=== PATIENT | male | born 1975 | race Caucasian/White ===

== ENCOUNTER 2024-12-26 19:43 | Inpatient (IN) | payer OTHER, SELFPAY ==
[2024-12-26 19:44] VITALS: BP 151/76
--- NOTE | 2024-12-26 20:58 | HPS.HSE ---
Family Physician
-
Family Physician: NO INTERVIEW UNKNOWN
Chief Complaint
-
failure to thrive
History of Present Illness
49-year-old male past medical history of depression, hypertension, insomnia, kidney stones who originally presented to [facility] on 12/17 for generalized weakness. stated that he has been declining for months and was fired from his job
2 months ago and since then has been increasingly depressed, with failure to thrive. He has had decreased p.o. intake, decreased urine output and constipation. He had 30 pounds of weight loss. He was also unsteady on his feet. He did not have
falls or dizziness or lightheadedness or vision changes or numbness or tingling or focal weakness. No fevers or chills. No chest pain or palpitations. No shortness of breath or cough. No nausea or vomiting.
He was found to be anemic with hemoglobin of 6.9, thrombocytopenia with platelets of 97. He was found to have acute renal failure with creatinine of 4.84. He was given 2 units of blood transfusion. He was found to have [place] valve aortic
endocarditis with strep possibly due to indolent dental infection as he had a cap Fall off approximately a month ago.
He was also found to have splenic emboli and septic emboli to the brain with bilateral cortical and subcortical cerebral involvement. He did not have heart block arrhythmia or heart failure. He was recommended to be transferred to [facility] for curative valve replacement given septic emboli to the brain. He is receiving IV Rocephin through right upper extremity PICC line. Blood cultures have been clear since December 20.
His father had valvular heart disease. No family history of rheumatological conditions.
Medical History
Past Medical History
Past Medical History: Reports Other (depression, hypertension, insomnia, kidney stones)
Past Surgical History: Reports Other (JJ stent )
Social History
Tobacco: Non-smoker
Alcohol: None
Drug: None
Family History
Family History: Not pertinent
Allergies / Home Medications
Allergies reflects when Allergies were last updated in [employer].
Home Medications with original date entered in [facility]
Allergy/Medication List:
Home Medications
acetaminophen 325 mg tablet 650 mg PO Q6H PRN anemia 12/26/24
amlodipine 5 mg tablet 5 mg PO BID 12/26/24
ascorbic acid (vitamin C) 500 mg PO BID 12/26/24
ceftriaxone 2 gram intravenous solution 2 g IV DAILY 12/26/24
ferrous gluconate 324 mg (38 mg iron) tablet 324 mg PO DAILY 12/26/24
Review of Systems
-
Constitutional: Reports No Symptoms
EENT: Reports No Symptoms
Respiratory: Reports No Symptoms
Cardiac: Reports No Symptoms
Abdomen/GI: Reports No Symptoms
: Reports No Symptoms
Musculoskeletal: Reports No Symptoms
Skin: Reports No Symptoms
Neurological: Reports No Symptoms
Endocrine: Reports No Symptoms
Hematologic/Lymphatic: Reports No Symptoms
Psych: Reports No Symptoms
Physical Exam
Vital Signs
Vital Signs
Temp Pulse Resp Pulse Ox
98.6 F 82 16 97
12/26/24 19:47 12/26/24 19:47 12/26/24 19:47 12/26/24 19:47
Physical Exam
General: Well Developed, Well Nourished and No Apparent Distress
HEENT: NormoCephalic, Moist mucous membranes and Atraumatic
Respiratory: Clear
Cardiac: S1/S2 and Regular Rhythm; No Murmur or Rub
GI: Soft, Non Tender, Non Distended and Normal Bowel Sounds; No Organomegaly
Rectal: Deferred by Provider
Musculoskeletal: No Clubbing, No Cyanosis and No Edema
Skin: No Rash
Neuro: Nonfocal/grossly intact
Data Reviewed
-
Lab Data: Labs Reviewed by me
Old Records: Reviewed
Impression/Plan
-
IMPRESSION:
PLAN:
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
# Streptococcus mutans bacteremia
- Blood cultures negative since 12/20, currently on ceftriaxone
-Patient had extensive hematologic workup which was notable for lupus anticoagulant of 44 (normal <40), possible restricted M spike on protein electrophoresis, procalcitonin of 0.65, IgM kappa monoclonal band present on serum immunofixation,
bnmy-tygcgu-hhvzczjn DNA titer 1.1 (normal <1.1), free kappa light chains of 154, free lambda chains of 125, PT of 15.8,
-Negative labs include fibrinogen, ANCA negative, Dani viper venom screen negative, antibeta-2 glycoprotein IgG antibody and IgA antibody, glomerular basement membrane IgG antibody, anticardiolipin IgG antibody, anticardiolipin IgM antibody, C3,
C4, hepatitis B surface antigen, surface antibody, hep C antibody, antistreptolysin O antibody, malaria/Babesia smear,
-[place] lambda light chain ratio 1.23,
- Continue through right upper extremity PICC line
-Echo showed EF of 60 to 65% severe thickening of the anterior posterior leaflets of the mitral valve without clear vegetations, moderate-sized oscillating heterogeneous echodensity attached to the noncoronary cusp, aortic valve is thickened and
calcified, mild to moderate eccentric aortic regurgitation, mild to moderate mitral regurgitation, small pericardial effusion, small left pleural effusion
- Transfered to [facility] for curative aortic valve replacement given septic emboli to the brain
-No arrhythmias or CHF
-Patient was seen by hematology at [facility], unclear what the recommendations were
- Cardiothoracic surgery consulted
- ID consulted
- CT scan abdomen pelvis showed moderate ascites, moderate splenomegaly, hypodense lesion in the upper pole of the spleen concerning for splenic infarct, nonobstructing bilateral renal calculi, diffuse subcutaneous edema in the abdominal pelvic wall
- MRI brain showed multiple cortical and subcortical foci of diminished signal intensity suggesting blood products versus septic emboli
- Concern for underlying hematologic/rheumatologic process although dental infection could be precipitating event
-hematology consulted
# Acute kidney injury possibly thromboembolic vs glomerulonephritis vs vasculitic
- Creatinine of 4.84
- Nephrology consulted
# Anemia
- Initial hemoglobin 6.9
- Received 2 units blood transfusion
- Recheck CBC
-continue ferrous gluconate
# Thrombocytopenia
- Recheck CBC
# Right upper extremity PICC line related pain
- Continue morphine
#Tooth filling cap dislodgement
-outpatient follow up with dentist
Anxiety/depression
-continue xanax, fluoxetine, mirtazepine
Essential hypertension
-continue amlodipine, coreg, clonidine
Insomnia
History of kidney stones
Full code
DVT prophylaxis -Heparin
Regular diet
[2024-12-26 21:24] VITALS: BMI 23.6
[2024-12-26] MEDS: MORPHINE SULFATE 15 MG PO (22:30)
[2024-12-26] MEDS: REMERON 15 MG PO (22:30)
[2024-12-26] MEDS: HEPARIN 5000 UNITS SC (22:31)
[2024-12-26 22:42] VITALS: BP 157/84
--- NOTE | 2024-12-26 23:04 | CONSULT.CT ---
Consultation
-
Date/Time Consultation Requested: 12/26/24
Date/Time Consultation Performed: 12/26/24, 10 pm
Requesting Provider: Dr. Foote
Performing Provider: Krupa Arita PA-C for Dr. Denney
Reason for Consultation: Infective endocarditis with septic emboli to the brain and splenic infarct
Patient History
Physicians
Family Physician: Dr. Luis Turner
Outpatient Interchange Agent: Dr. Freda Pretty
Inpatient Interchange Agent: Dr. Lewis Riley
History of Present Illness
Mr Kwan is a 49 yo male with hx HTN, remote hx of syncope 2011, renal stones, anxiety, depression and insomnia. He presented to [facility] on 12/17 for generalized weakness, feeling tired, failure to thrive, difficulty with balance, unintentional weight
loss >30 lbs since October. He has been increasingly depressed since loosing his job 2 months ago with decreased po intake, decreased urine output and constipation. He denies having any fever or chills, difficulty swallowing or any nausea, vomiting,
abdominal or back pain, no chest pain, sob or cough.
Pt was found to be anemic with Hg 6.5, low platelets 97, in acute renal failure with BUN 78, Cr 4.84 (trended down to 2.86, no need of HD), trop T 896. BNP 96803 with trace leg edema. He was hemodynamically stable. CXR showed small L pleural
effusion, no opacities or consolidations. CT of abdomen/pelvis revealed moderate ascites, moderate splenomegaly, evidence of splenic infarct, multiple nonobstructing renal calculi, diffuse subcutaneous edema in the abdominal and pelvic wall. He was
also found to have septic emboli to the brain with bilateral cortical and subcortical cerebral involvement. Pt was given 2 units blood transfusion. He was diagnosed with aortic valve endocarditis with new mild-moderate aortic insufficiency, mild-mod
MR, nl EF 60-65%. Blood cultures grew out Streptococcus mutans and have been negative since 12/20. Pt had R upper extremity Picc line placed and has been treated with iv Ceftriaxone. Endocarditis source was suspected due to indolent dental infection
as he had a cap fall off approximately a month ago. He denies any toothache or abscess.
He underwent extensive work-up of anemia by Hematology, which was notable for elevated lupus anticoagulant of 44 (normal <40), possible restricted M spike on protein electrophoresis, elevated procalcitonin 0.65, IgM kappa monoclonal band present on
serum immunofixation, jyrq-xbyadx-fhgoxfay DNA titer of 1.1 (normal <1.1), free kappa light chains of 154, free lambda chains of 125, PT 15.8, normal fibrinogen.
Pt was transferred to on 12/26/24 for further workup and treatment of infective endocarditis. He is afebrile, in nsr 80 bpm, pOx 97% on RA, no distress, has cardiac murmur and b/l LE edema. He appears tired and falling asleep.
Past Medical History
Past Medical History: HTN
-hx syncope at work in 2011
-anxiety/depression
-insomnia
-asthma (uses prn Albuterol only)
-renal stones with prior lithotripsy and 3-4 JJ stents
Past Surgical History
Past Surgical History: Urological (JJ stents and lithotripsy)
Dental History
chipped tooth with loss of cap about 1 month ago
Family History
Family Medical History: Other (Father had valvular heart disease)
Social History
Alcohol: None
Drug: None
Tobacco: Other (occasional cigar)
Personal: ('s name is Loan)
Living: With Spouse
Employment: Not Employed (worked in [employer], lost his job 2 months ago)
Allergies
Allergy/AdvReac Type Severity Reaction Status Date / Time
Sulfa (Sulfonamide Allergy Anaphylaxis Verified 12/26/24 21:26
Antibiotics)
sulfite Allergy Anaphylaxis Verified 12/26/24 21:26
Home Medications
�Medication �Instructions �Recorded �Confirmed �Type
acetaminophen 325 mg tablet 650 mg PO Q6H PRN anemia 12/26/24 12/26/24 History
alprazolam 0.5 mg tablet 0.5 mg PO DAILY 12/26/24 12/26/24 History
amlodipine 5 mg tablet 5 mg PO BID 12/26/24 12/26/24 History
ascorbic acid (vitamin C) 500 mg PO BID 12/26/24 12/26/24 History
carvedilol 25 mg tablet 25 mg PO BID 12/26/24 12/26/24 History
ceftriaxone 2 gram intravenous 2 g IV DAILY 12/26/24 12/26/24 History
solution
clonidine HCl 0.1 mg tablet 0.1 mg PO Q6HPRN PRN HTN SBP>160 12/26/24 12/26/24 History
ergocalciferol (vitamin D2) 1,250 1,250 mcg PO QWEEK 12/26/24 12/26/24 History
mcg (50,000 unit) capsule
ferrous gluconate 324 mg (38 mg 324 mg PO DAILY 12/26/24 12/26/24 History
iron) tablet
fluoxetine 40 mg capsule 40 mg PO DAILY 12/26/24 12/26/24 History
folic acid 1 mg tablet 1 mg PO DAILY 12/26/24 12/26/24 History
heparin (porcine) 5,000 unit/mL 5,000 unit SC Q8H 12/26/24 12/26/24 History
injection solution
mirtazapine 15 mg disintegrating 15 mg PO HS 12/26/24 12/26/24 History
tablet
morphine 15 mg immediate release 15 mg PO Q6H PRN Moderate Pain 12/26/24 12/26/24 History
tablet (4-6)
multivitamin with folic acid 400 1 tab PO DAILY 12/26/24 12/26/24 History
mcg tablet
pantoprazole 40 mg tablet,delayed 40 mg PO DAILY 12/26/24 12/26/24 History
release
polyethylene glycol 3350 17 gram 17 g PO DAILY 12/26/24 12/26/24 History
oral powder packet
thiamine mononitrate (vit B1) 100 100 mg PO BID 12/26/24 12/26/24 History
mg tablet
zolpidem 12.5 mg tablet,extended 12.5 mg PO HS 12/26/24 12/26/24 History
release,multiphase
Review of Systems
-
History Source: Patient and Transfer Record
General: Reports Weight Loss (30-50 lbs since October,)
HEENT: Reports No Symptoms
Respiratory: Reports Asthma
Cardiac: Reports Edema
Abdomen/GI: Reports No Symptoms
: Reports No Symptoms
Musculoskeletal: Reports No Symptoms
Skin: Reports No Symptoms
Neurological: Reports No Symptoms
Vascular: Reports No Symptoms
Physical Exam
Vital Signs
Temp 98.6 F 12/26/24 19:47
Temp route: Oral 12/26/24 19:47
Pulse 80 12/26/24 22:15
Resp Rate 16 12/26/24 19:47
Blood pressure 151/76 12/26/24 19:44
Blood pressure extremity used: Left upper arm 12/26/24 19:47
Position: Sitting 12/26/24 19:47
MAP (cuff-Michelle Monitor) 100 12/26/24 19:44
SaO2 97 12/26/24 19:47
Oxygen Mode of Delivery Room air 12/26/24 19:47
Can the patient verbally communicate their pain? Yes 12/26/24 22:30
Pain scale ratin 12/26/24 22:30
Actual Weight 164 lb 7.437 oz 12/26/24 21:24
Body Mass Index (BMI) 23.6 12/26/24 21:24
Exam
General: No Apparent Distress
HEENT: Normocephalic, Anicteric, PERRLA and EOMI
Respiratory: Clear
Cardiac: S1/S2 and Murmur (2/6 systolic and diastolic murmurs)
GI: Soft, Non Tender, Normal Bowel Sounds and Distended
Skin: Warm and Dry
Neuro: Awake and AO x 3
Extremities: Lower Level Edema (2+ feet edema b/l)
Psych: Calm
Assessment / Plan
-
Impression:
-Aortic valve endocarditis with new aortic insufficiency, Septic brain emboli and Splenic infarct
-Streptococcus mutans bacteremia with negative blood cxs since 12/20/24, treated with iv Ceftriaxone via R upper extremity Picc line
-Suspected indolent dental infection with loss of tooth cap about 1 month ago
-Echo at [facility] revealed Ef 60-65%, no regional wma, severe thickening of the anterior and posterior leaflets of the mitral valve with no clear vegetations, mild-mod mitral regurgitation, moderate sized (0.4x0.7 cm) oscillating heterogeneous
echodensity attached to the non-coronary cusp. Aortic valve is thickened and calcified with mild-moderate eccentric aortic regurgitation, small pericardial effusion, small left pleural effusion.
-Lower extremity edema
-Anemia with Hg 6.5, got 2 pRBCs at [facility]
-Thrombocytopenia
-CORNELIO with Cr 4.84 down to 2.86 (did not need HD)
-Abnormal hematologic/rheumatologic workup
-Abdominal CT at [facility] with moderate ascites, moderate splenomegaly, suspected splenic infarct, non-obstructing b/l renal calculi, diffuse subcutaneous edema in the abdominal and pelvic wall
-Anxiety/depression
-Insomnia
Plan:
-continue iv Ceftriaxone. Further tx as per ID
-will ask Cardiology to follow. Will need AMANDA
-follow renal function, Nephrology eval
-will need Panelipse for possible dental infection (ordered)
-will review findings with Dr. Denney. He will provide further recommendations after his evaluation
Data Reviewed
-
EKG: Report Reviewed by me
Echo: Report Reviewed by me
Radiology: Report Reviewed by me
CT Scan: Report Reviewed by me
Labs: Labs Reviewed by me
Old Records: Reviewed
Critical Care Time (in minutes): 30
--- NOTE | 2024-12-26 23:28 | PTCARENOTE ---
Addendum entered by Ele Beasley RN 12/26/24 23:32:
PICC line in right arm assessed, blood return. Pt states the PICC line 'has been giving him pain. It was redressed and assessed at [facility] with no problems.' Pt did not complain when flushed line.
Original Note:
Received pt from [facility] transport @ 1945. AAOx3, VSS, NSR w/ First degree on monitor. C/o kidney pain (03/25). Morphine given once orders through-- see SEP. Krupa Arita, LYDIA PA, came to assess pt-- recommended 2L NC overnight. Discussed plan of care
with pt. Verbalizes understanding. Call quesada within reach.
[2024-12-27 05:14] VITALS: BP 152/83
[2024-12-27] MEDS: MORPHINE SULFATE 15 MG PO ×2 (05:44→11:09)
[2024-12-27] MEDS: HEPARIN 5000 UNITS SC (05:44)
[2024-12-27 05:54] VITALS: BMI 23.2
[2024-12-27 06:03] LABS: Hematocrit 23.2 % (39.0-52.0); Hemoglobin 7.8 g/dL (13.0-18.0); Mean Corp Hgb Conc. 33.6 g/dL (33.0-37.0); Mean Corpuscular Volume 80.0 fL (80.0-94.0); Nucleated Red Blood Cells % 0 % (-); Red Cell Dist. Width 17.6 % (11.5-14.5)
[2024-12-27 06:16] LABS: ALT (SGPT) 15 U/L (0-50); AST (SGOT) 21 U/L (17-59); Albumin 2.4 g/dl (3.5-5.0); Alkaline Phosphatase 86 U/L (38-126); Blood Urea Nitrogen 70 mg/dl (9-20); Calcium 8.0 mg/dl (8.4-10.2); Carbon Dioxide 21 mmol/L (22-30); Chloride 108 mmol/L (98-107); Estimated Creatinine Clearance 34 ml/min; Glucose 107 mg/dl (70-99); Potassium 4.5 mmol/L (3.5-5.1); Sodium 133 mmol/L (135-145); Total Protein 5.9 g/dl (6.3-8.2); eGFR 27.84
[2024-12-27 07:41] VITALS: BP 155/77
[2024-12-27] MEDS: COREG 25 MG PO (09:11)
[2024-12-27] MEDS: VITAMIN B1 100 MG PO (09:11)
[2024-12-27] MEDS: PROTONIX 40 MG PO (09:11)
[2024-12-27] MEDS: THERAGRAN 1 TABLET PO (09:11)
[2024-12-27] MEDS: FOLVITE 1 MG PO (09:12)
[2024-12-27] MEDS: FEOSOL 325 MG PO (09:12)
[2024-12-27] MEDS: PROZAC 40 MG PO (09:12)
[2024-12-27] MEDS: NORVASC 5 MG PO (09:12)
[2024-12-27] MEDS: DRISDOL (VITAMIN D2) 50000 UNITS PO (09:13)
[2024-12-27] MEDS: ROCEPHIN 2000 MG IV ×2 (09:15→23:51)
[2024-12-27] MEDS: STERILE WATER FOR INJECTION 20 ML IV ×2 (09:15→23:51)
--- NOTE | 2024-12-27 09:45 | W.CON.NEPH ---
Consultation
-
Date/Time Consultation Requested: 12/27/2024 730 AM
Date/Time Consultation Performed: 12/27/2024 945 AM
Requesting Provider: Dr. Cifuentes
Performing Provider: Dr. Chavarria
Reason for Consultation: CORNELIO
Medical History
-
Chief Complaint: CORNELIO
History of Present Illness:
bonnie Kwan is a 49 yo male with hx HTN, remote hx of syncope 2011, renal stones, anxiety, depression and insomnia. He presented to [facility] on 12/17 for generalized weakness, feeling tired, failure to thrive, difficulty with balance, unintentional weight
loss >30 lbs since October. He has been increasingly depressed since loosing his job 2 months ago with decreased po intake, decreased urine output and constipation. He denies having any fever or chills, difficulty swallowing or any nausea, vomiting,
abdominal or back pain, no chest pain, sob or cough.
Pt was found to be anemic with Hg 6.5, low platelets 97, in acute renal failure with BUN 78, Cr 4.84 (trended down to 2.86, no need of HD), trop T 896. BNP 03582 with trace leg edema. He was hemodynamically stable. CXR showed small L pleural
effusion, no opacities or consolidations. CT of abdomen/pelvis revealed moderate ascites, moderate splenomegaly, evidence of splenic infarct, multiple nonobstructing renal calculi, diffuse subcutaneous edema in the abdominal and pelvic wall. He was
also found to have septic emboli to the brain with bilateral cortical and subcortical cerebral involvement. Pt was given 2 units blood transfusion. He was diagnosed with aortic valve endocarditis with new mild-moderate aortic insufficiency, mild-mod
MR, nl EF 60-65%. Blood cultures grew out Streptococcus mutans and have been negative since 12/20. Pt had R upper extremity Picc line placed and has been treated with iv Ceftriaxone. Endocarditis source was suspected due to indolent dental infection
as he had a cap fall off approximately a month ago. He denies any toothache or abscess.
He underwent extensive work-up of anemia by Hematology, which was notable for elevated lupus anticoagulant of 44 (normal <40), possible restricted M spike on protein electrophoresis, elevated procalcitonin 0.65, IgM kappa monoclonal band present on
serum immunofixation, ypxh-ekjiff-pslvjblv DNA titer of 1.1 (normal <1.1), free kappa light chains of 154, free lambda chains of 125, PT 15.8, normal fibrinogen.
Pt was transferred to on 12/26/24 for further workup and treatment of infective endocarditis. He is afebrile, in nsr 80 bpm, pOx 97% on RA, no distress, has cardiac murmur and b/l LE edema.
Nephrology was consulted for acute kidney injury with creatinine of 2.7
Past Medical History
-hx syncope at work in 2011
-anxiety/depression
-insomnia
-asthma (uses prn Albuterol only)
-renal stones with prior lithotripsy and 3-4 JJ stents
-HTN
Social History
Tobacco: Non-Smoker
Alcohol: None
Drug: None
Family History
Valvular heart disease no ESRD
Allergies / Home Medications
Allergy/AdvReac Type Severity Reaction Status Date / Time
Sulfa (Sulfonamide Allergy Anaphylaxis Verified 12/26/24 21:26
Antibiotics)
sulfite Allergy Anaphylaxis Verified 12/26/24 21:26
�Medication �Instructions �Recorded �Confirmed �Type
acetaminophen 325 mg tablet 650 mg PO Q6H PRN anemia 12/26/24 12/26/24 History
alprazolam 0.5 mg tablet 0.5 mg PO DAILY Mental 12/26/24 12/26/24 History
Health/Anxiety
amlodipine 5 mg tablet 5 mg PO BID Blood Pressure 12/26/24 12/26/24 History
ascorbic acid (vitamin C) 500 mg PO BID Supplement 12/26/24 12/26/24 History
carvedilol 25 mg tablet 25 mg PO BID Blood Pressure 12/26/24 12/26/24 History
ceftriaxone 2 gram intravenous 2 g IV DAILY Infection 12/26/24 12/26/24 History
solution
clonidine HCl 0.1 mg tablet 0.1 mg PO Q6HPRN PRN HTN SBP>160 12/26/24 12/26/24 History
ergocalciferol (vitamin D2) 1,250 1,250 mcg PO QWEEK Supplement 12/26/24 12/26/24 History
mcg (50,000 unit) capsule
ferrous gluconate 324 mg (38 mg 324 mg PO DAILY Supplement 12/26/24 12/26/24 History
iron) tablet
fluoxetine 40 mg capsule 40 mg PO DAILY Mental 12/26/24 12/26/24 History
Health/Anxiety
folic acid 1 mg tablet 1 mg PO DAILY Supplement 12/26/24 12/26/24 History
heparin (porcine) 5,000 unit/mL 5,000 unit SC Q8H Blood Clot 12/26/24 12/26/24 History
injection solution Prevention/Tx
mirtazapine 15 mg disintegrating 15 mg PO HS Mental Health/Anxiety 12/26/24 12/26/24 History
tablet
morphine 15 mg immediate release 15 mg PO Q6H PRN Moderate Pain 12/26/24 12/26/24 History
tablet (4-6)
multivitamin with folic acid 400 1 tab PO DAILY Supplement 12/26/24 12/26/24 History
mcg tablet
pantoprazole 40 mg tablet,delayed 40 mg PO DAILY Gastrointestinal 12/26/24 12/26/24 History
release Issue
polyethylene glycol 3350 17 gram 17 g PO DAILY Gastrointestinal 12/26/24 12/26/24 History
oral powder packet Issue
thiamine mononitrate (vit B1) 100 100 mg PO BID Supplement 12/26/24 12/26/24 History
mg tablet
zolpidem 12.5 mg tablet,extended 12.5 mg PO HS Sleep 12/26/24 12/26/24 History
release,multiphase
Review of Systems
-
History Source: Patient
All other systems: Negative unless noted
Constitutional: Weight Loss (Weight loss 30 to 50 pounds since October 2024) and Fatigue
Abdomen/GI: Other (Decreased p.o.intake)
: Other (Decreased urinary output)
Musculoskeletal: Edema
Physical Exam
Vital Signs
Vital Signs
Temp Pulse Resp BP Pulse Ox
98.4 F 81 20 155/77 94
12/27/24 07:40 12/27/24 09:00 12/27/24 07:40 12/27/24 07:41 12/27/24 09:35
Lab Results
12/27/24 05:31
12/27/24 05:31
WBC 7.9 10^3/uL (4.8-10.8) 12/27/24 05:31
RBC 2.90 10^6/uL (4.70-6.10) L 12/27/24 05:31
Hgb 7.8 g/dL (13.0-18.0) L 12/27/24 05:31
Hct 23.2 % (39.0-52.0) L 12/27/24 05:31
Sodium 133 mmol/L (135-145) L 12/27/24 05:31
Potassium 4.5 mmol/L (3.5-5.1) 12/27/24 05:31
Chloride 108 mmol/L (98-107) H 12/27/24 05:31
Carbon Dioxide 21 mmol/L (22-30) L 12/27/24 05:31
BUN 70 mg/dl (9-20) H 12/27/24 05:31
Creatinine 2.7 mg/dL (0.7-1.3) H 12/27/24 05:31
eGFR 27.84 12/27/24 05:31
Glucose 107 mg/dl (70-99) H 12/27/24 05:31
Calcium 8.0 mg/dl (8.4-10.2) L 12/27/24 05:31
Albumin 2.4 g/dl (3.5-5.0) L 12/27/24 05:31
Physical Exam
General: AOx3, Nontoxic , NAD
HEENT: PERRL, EOMI, Anicteric, Conjunctivae Clear, Ear/Nose Intact, Hearing Normal, Oropharynx Clear/Moist, Dentition Intact, Facial Symmetry, Neck Supple, Neck: Trachea Midline, No JVD and No Thyromegaly, no Bruits
Respiratory: Clear to auscultation bilaterally with normal lung exersion
Cardiac: S1/S2 and Regular Rate/Rhythm : 3 out of 6 systolic ejection murmur best heard at right sternal border
Breast: Deferred by me
Abdomen: Soft, Nontender, Nondistended, Normal Bowel Sounds and No Hepatosplenomegaly
Rectal: Deferred by Provider
Genito-urinary: No Costovertebral Tenderness
Extremities: No Clubbing, No Cyanosis and trace edema
Skin: No Rash or open lesions, no evidence of digital emboli
Neuro: Nonfocal/Grossly Intact, CN II-XII (Intact) and Strength (Musculoskeletal exam 5 out of 5 both upper and lower extremities)
Hematologic/Lymphatic: No Cervical Lymphadenopathy, No Submandibular Lymphadenopathy and No Supraclavicular Lymphadenopathy
Psych: Mood/afflect pleasant, Insight/judgement good and Appropriate
Vascular: plus 2 pedal and radial pulses
Data Reviewed
-
Labs: Labs Reviewed by me (BMP CBC urinalysis)
Assessment/Plan
-
Impression:
CORNELIO
Infectious endocarditis (Aortic)
Septic brain emboli
Splenic infarct
Strep mutans bacteremia
Anemia
Thrombocytopenia
Anxiety/depression
History of obstructive uropathy due to nephrolithiasis with double-J stent
Plan:
No current HD requirement
CORNELIO is presumed to be secondary to infectious endocarditis with possible infectious immune complex GN but could also be atheroembolic
Previous serological workup was reviewed from [facility]
Will obtain kidney and bladder ultrasound given prior history of obstructive uropathy after surgery
I will also obtain urinalysis
Patient likely go to the OR today per CT surgery
[2024-12-27 10:13] LABS: Platelet Count 96 10^3/uL (130-400)
--- NOTE | 2024-12-27 10:57 | CON.CAR ---
Addendum entered and electronically signed by Pola Tafoya MD 12/27/24 12:42:
I saw and examined the patient.
The STAINED GLASS WINDOW DESIGNER's note was reviewed and I agree with the note.
Comment:
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 Blood cultures grew out Streptococcus mutans and
have been negative since 12/20. Treated with IV Ceftriaxone. He is transferred from [facility] for cardiac surgery which will happen today with Dr. Denney. He has no acute CV complaints.
Physical exam notable for RRR, systolic murmur, clear lungs, no edema.
Echo 12/22/24 EF 60-65, mild LVH, mildly dilated LA, severe thickening of anterior and posterior mitral leaflets,mild-mod MR, mod sized 0.4 x 0/7 oscillating heterogeneous echodensity attahced to noncoronary cusp, mild-mod AR, PG 23.5/MG 13.1, small
pericardial effusion
Bacterial [place] valve endocarditis complicated by septic emboli. Source thought to be dental infection. Cultures grew strep mutans. He has a highly mobile vegetation on his aortic valve requiring emergency surgery to prevent further
embolization. OR today with Dr. Denney. He is at high risk for surgery (STS mortality 6.2%). Infectious diseases following for antibiotic management. No signs/sx of CHF.
CORNELIO. Improving with treatment of his endocarditis. 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 Nephrology following.
Pancytopenia. Required PRBCs at [facility]. Continue to monitor.
Original Note:
Consultation
Consultation Request
Date/Time Consultation Requested: 12/27/2024 0900
Date/Time Consultation Performed: 12/27/2024 1030
Requesting Provider: Dr. Denney
Performing Provider: Dr. Tafoya
Reason for Consultation: Endocarditis
Medical History
-
Chief Complaint: Endocarditis, fatigue, weight loss
History of Present Illness:
Mr Kwan is a 49 yo male with hx HTN, remote hx of syncope 2011, renal stones, anxiety, depression and insomnia. He presented to [facility] on 12/17 for generalized weakness, feeling tired, failure to thrive, difficulty with balance, unintentional weight
loss >30 lbs since October. He has been increasingly depressed since loosing his job 2 months ago with decreased po intake, decreased urine output and constipation. No CP, SOB, LE edema noted.
-
During his admission he was noted to be anemic with Hg 6.5, low platelets 97, in acute renal failure with BUN 78, Cr 4.84 T 896. BNP 38093 with trace leg edema. He was hemodynamically stable. CT of abdomen/pelvis revealed moderate ascites,
moderate splenomegaly, evidence of splenic infarct, multiple nonobstructing renal calculi, diffuse subcutaneous edema in the abdominal and pelvic wall. He was also found to have septic emboli to the brain with bilateral cortical and subcortical
cerebral involvement. Pt was given 2 units blood transfusion. He was diagnosed with aortic valve endocarditis with new mild-moderate aortic insufficiency, mild-mod MR, nl EF 60-65%. Blood cultures grew out Streptococcus mutans and have been negative
since 12/20. Treated with IV Ceftriaxone. Endocarditis source is suspected to be due to possible dental infection as he had a cap fall off approximately a month ago. He denies any toothache or abscess. Now transferred to for further management.
Currently denies CP, palps, SOB.
Past Medical History
Past Medical History: HTN and Other (depression, insomnia, kidney stones)
Past Surgical History: None
Social History
Tobacco: Non-Smoker
Alcohol: None
Drug: None
Personal:
Employment: Not Employed
Family History
Family History: Reviewed & Not Pertinent
Allergies / Home Medications
Allergy/AdvReac Type Severity Reaction Status Date / Time
Sulfa (Sulfonamide Allergy Anaphylaxis Verified 12/26/24 21:26
Antibiotics)
sulfite Allergy Anaphylaxis Verified 12/26/24 21:26
�Medication �Instructions �Recorded �Confirmed �Type
acetaminophen 325 mg tablet 650 mg PO Q6H PRN anemia 12/26/24 12/26/24 History
alprazolam 0.5 mg tablet 0.5 mg PO DAILY Mental 12/26/24 12/26/24 History
Health/Anxiety
amlodipine 5 mg tablet 5 mg PO BID Blood Pressure 12/26/24 12/26/24 History
ascorbic acid (vitamin C) 500 mg PO BID Supplement 12/26/24 12/26/24 History
carvedilol 25 mg tablet 25 mg PO BID Blood Pressure 12/26/24 12/26/24 History
ceftriaxone 2 gram intravenous 2 g IV DAILY Infection 12/26/24 12/26/24 History
solution
clonidine HCl 0.1 mg tablet 0.1 mg PO Q6HPRN PRN HTN SBP>160 12/26/24 12/26/24 History
ergocalciferol (vitamin D2) 1,250 1,250 mcg PO QWEEK Supplement 12/26/24 12/26/24 History
mcg (50,000 unit) capsule
ferrous gluconate 324 mg (38 mg 324 mg PO DAILY Supplement 12/26/24 12/26/24 History
iron) tablet
fluoxetine 40 mg capsule 40 mg PO DAILY Mental 12/26/24 12/26/24 History
Health/Anxiety
folic acid 1 mg tablet 1 mg PO DAILY Supplement 12/26/24 12/26/24 History
heparin (porcine) 5,000 unit/mL 5,000 unit SC Q8H Blood Clot 12/26/24 12/26/24 History
injection solution Prevention/Tx
mirtazapine 15 mg disintegrating 15 mg PO HS Mental Health/Anxiety 12/26/24 12/26/24 History
tablet
morphine 15 mg immediate release 15 mg PO Q6H PRN Moderate Pain 12/26/24 12/26/24 History
tablet (4-6)
multivitamin with folic acid 400 1 tab PO DAILY Supplement 12/26/24 12/26/24 History
mcg tablet
pantoprazole 40 mg tablet,delayed 40 mg PO DAILY Gastrointestinal 12/26/24 12/26/24 History
release Issue
polyethylene glycol 3350 17 gram 17 g PO DAILY Gastrointestinal 12/26/24 12/26/24 History
oral powder packet Issue
thiamine mononitrate (vit B1) 100 100 mg PO BID Supplement 12/26/24 12/26/24 History
mg tablet
zolpidem 12.5 mg tablet,extended 12.5 mg PO HS Sleep 12/26/24 12/26/24 History
release,multiphase
Review of Systems
-
History Source: Patient
Constitutional: Weight Loss and Fatigue
EENT: No Symptoms
Respiratory: No Symptoms
Cardiac: No Symptoms
Abdomen/GI: No Symptoms
Musculoskeletal: No Symptoms
Skin: No Symptoms
Physical Exam
Vital Signs
Temp Pulse Resp BP Pulse Ox
98.4 F 81 20 155/77 94
12/27/24 07:40 12/27/24 09:00 12/27/24 07:40 12/27/24 07:41 12/27/24 09:35
Lab Results
12/27/24 05:31
12/27/24 05:31
Physical Exam
HEENT: Normocephalic and Moist Mucous Membranes
Respiratory: Clear
Cardiac: S1/S2, Regular Rhythm and Murmur (2/6 RSB , apex)
GI: Soft, Non Tender and Normal Bowel Sounds
Musculoskeletal: No Edema
Skin: Warm and Dry
Neuro: AO x 3
Psych: Calm
Impression / Plan
-
Aortic valve endocarditis:
-Associated with possible dental infection
-Associated with anemia, thrombocytopenia, CORNELIO, splenic infarct, and enboli to brain with concern for bilat occipital subarachnoid hemorrhage
-IV antibiotics
-CTS plans for OR today.
CORNELIO:
-Nephrology following
-present with creat 4.8, now 2.7
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
HTN:
-Stable on meds
Splenic infarct:
-in setting of endocarditis
Thrombocytopenia/anemia:
-in setting of endocarditis
-required PRBC
-
Data Reviewed
-
EKG: Tracing Personally Visualized and interpreted (EKG 12/27/24 NSR 1st degree AVB. )
Radiology: Report Reviewed by me (CT Healy: Sm L pleural effusion, mod ascities, mod splenomegaly hypodense lesion upper pole of spleen concern for splenic infarct. ) and Other (MRI: 12/23/24 Multiple cortical and subcortical foci concern for
septic emboli which can demonstrate ischemic changes with restricted diffusion as well as hemorrhagic damage to the brain. Linear areas of non flair suppression and diminished signal suggest possible subarachnoid hemorrhage with in the )
Medical Tests (Nuc Med, Echo etc): Other (Echo 12/22/24 EF 60-65, mild LVH, mildly dilated LA, severe thickening of anterior and posterior mitral leaflets,mild-mod MR, mod sized 0.4 x 0/7 oscillating heterogeneous echodensity attahced to noncoronary
cusp, mild-mod AR, PG 23.5/MG 13.1, small pericardial effusion)
Labs: Labs Reviewed by me and Discussed with Physician
--- NOTE | 2024-12-27 11:08 | W.PN.UPDATE ---
Update Note
Progress Note Update
CARDIAC SURGERY ATTENDING:
See full consult for additional details.
Mr. Kranthi Kwan is a 49 y/o man w/ significant streptococcus mutans endocarditis. On presentation at [facility] he reported generalized weakness, lethargy, balance difficulties, and unintentional weight loss (>30 lbs) since October. He was noted to be
anemic (Hgb 6.5), thrombocytopenic (PLT 97), with acute renal insufficiency (BUN/creat 78/4.84). His CTNI and BNP were elevated. A CT-CAP was obtained and demonstrated moderate ascites, moderate splenomegaly w/ evidence of splenic infacts,
multiple non-obstructing renal calculi, and diffuse edema in the abdominal and pelvic baer. A CT-H demonstrated septic emboli to the brain with bilateral cortical and subcortical cerebral involvement. An ECHOCARDIOGRAM demonstrated AV
endocarditis w/ moderate AI. He was transfused, started on IV ABX (Rocephin) via RUE PICC, and transfused to our institution for surgical management.
On my review of his ECHOCARDIOGRAM he has significant mobile vegetations present on his AV w/ associated moderate aortic insufficiency. In addition, he has a large, mobile LVOT vegetation attached to his septum. Given these large vegetations, the
associated moderate AV insuffiency, and evidence of several embolic events urgent surgical intervention is warrented. I had a long conversation with Mr. Kwan at his bedside this AM. His was present via telephone. We reviewed his
pathology, I reviewed his echocardiographic images, we discussed the need for surgical intervention, the associated surgical risks (including, but not limited to, , stroke, ICH, [place], early PVE, PPM requirement, PNA, CORNELIO/F, bleeding, and
infection), reviewed the expected in-hospital postoperative course, and discussed the expected outpatient recovery. We reviewed the natural history of structural valve deterioration and the pros/cons of mechanical vs. biologic AVR. The patient was
initial adament about avoiding coumadin, but is currently considering mechanical AVR. It is my hope that his infection is limited to the aortic valve/LVOT & septum. It is possible that he has some MV involvement. We discussed the possible of
concurrent MV intervention.
Will make arrangements for operative intervention today.
Thank you,
Kranthi Denney M.D.
[phone]
--- NOTE | 2024-12-27 11:16 | CON.ID ---
Consultation
-
Date/Time Consultation Requested: 12/26/20242
Date/Time Consultation Performed: 12/27/2024 0519
Requesting Provider: Dr. Foote
Performing Provider: Dr. Key
Reason for Consultation: Endocarditis
Chief Complaint / Past History
History of Present Illness
Kranthi Chaudhary is a 49-year-old man being evaluated at the request of Dr. Foote regarding endocarditis. History is obtained from chart review, along with patient interview.
The patient reports that for the past several months he has not been feeling well, with related poor oral intake secondary to decreased appetite and noted weight loss. He thought that some of this was secondary to stress from recently being laid
off from work. Additionally, he reports that he was having problems with balance and was finding it difficult to walk. He denied having any fevers during this period of time.
Ultimately, he presented to [facility] approximately 10 days ago at which point in time he was found to have anemia and further workup revealed acute kidney injury. Blood cultures obtained at the time of admission subsequently grew out
Streptococcus mutations. The patient was worked up for gait dysfunction and underwent MRI which suggested septic emboli, and echocardiography revealed an aortic valve vegetation. The patient was placed on IV antibiotics, and transferred to
[facility] for evaluation for possible valve replacement.
At this time, he notes ongoing difficulty walking. He denies any specific pain, though. He reports occasional headache. He denies any fevers or chills. Thus far, he has been evaluated by Nephrology, Cardiology and CT surgery.
Past History
Additional Past Medical History:
HTN
DM type II
Nephrolithiasis
Additional Past Surgical History:
Remote history JJ stent
Allergy History:
Sulfa (Sulfonamide Antibiotics) Allergy (Verified 12/26/24 21:26)
Wheeze
Current Antibiotics:
Ceftriaxone 2 g IV every 24 hours
Social History
Tobacco: Non-Smoker
Alcohol: None
Drug: None
Personal:
Living: With Family
Employment: Not Employed
Family History
Family History: Not Pertinent
Review of Systems
Vital Signs
Temp Pulse Resp BP Pulse Ox
98.4 F 81 20 155/77 94
12/27/24 07:40 12/27/24 09:00 12/27/24 07:40 12/27/24 07:41 12/27/24 09:35
Physical Exam
Physical Exam
Constitutional: No Acute Distress, Comfortable, Chronically Ill and Non-toxic
Head: Normocephalic
Eyes: Pupils Equal, Pupils Round, No Conjunctival Hemorrhage and Sclera Anicteric
Oral: No Thrush and No Ulcers
Cardiovascular: Regular Rate, S1/S2 and Murmur; Negative S3/S4
Pulmonary: Clear; Negative Wheezes, Rales or Rhonchi
Gastrointestinal: Soft, Non Tender, Non Distended, Normal Bowel Sounds, No Rebound and No Guarding
Genito-Urinary: Negative Junior
Extremities: Edema (2+ bilateral lower); Negative Cyanosis, Erythema, Splinter Hemorrhage or Janeway Lesions
Skin: Warm and Dry; Negative Rash or Jaundice
Neurological: Awake, Alert and Oriented; Negative Meningeal Signs
Psychological: Calm
.
Lab / Diagnostic Study Results
12/27/24 05:31
12/27/24 05:31
Abs Immat Gran (auto) 0.1 10^3/uL (0-0.05) H 12/27/24 05:31
Absolute Neuts (auto) 4.9 10^3/uL (1.4-6.5) 12/27/24 05:31
Absolute Lymphs (auto) 1.6 10^3/uL (1.2-3.4) 12/27/24 05:31
Absolute Monos (auto) 1.3 10^3/uL (0.1-0.6) H 12/27/24 05:31
Absolute Basos (auto) 0.0 10^3/uL (0-0.2) 12/27/24 05:31
Immature Gran % 1.3 % (0-0.5) H 12/27/24 05:31
Neutrophils % 62.5 % (42.2-75.2) 12/27/24 05:31
Lymphocytes % 19.8 % (20.5-51.1) L 12/27/24 05:31
Monocytes % 16.0 % (1.7-9.3) H 12/27/24 05:31
Eosinophils % 0.0 % (0-6) 12/27/24 05:31
Basophils % 0.4 % (0-2) 12/27/24 05:31
Microbiology Results
Micro:
12/27/24 05:31 MRSA Screen - Pending
Nose
Imaging:
12/25/2024 MRI brain (performed at [facility]): Multiple cortical and subcortical foci of diminished signal intensity on susceptibility weighted sequences. The sequence suggest the presence of blood products. Concern raised for septic
emboli which can demonstrate ischemic changes resulting in restriction diffusion, as well as hemorrhagic damage to the brain. Multiple small embolic infarcts also in the differential. Contrast enhanced examination failed to demonstrate enhancing
lesions or venous filling defects or prominent venous structures thus leptomeningeal carcinomatosis or venous congestion is not consistent with this study. Linear appearing areas of non-FLAIR suppression and diminished signal on susceptibility
weighted sequences suggest associated possible subarachnoid hemorrhage within the bilateral occipital lobes. Please see full dictation for additional detail.
12/22/2024 ECHO (TTE): LV EF = 60%. Mildly dilated left atrium. Severe thickening of the anterior and posterior leaflets of the mitral valve, but without clear vegetations. Moderate sized (0.4 x 0.7 cm oscillating heterogeneous echodensity
attached to the noncoronary cusp. Aortic valve is thickened and calcified with mild to moderate eccentric aortic regurgitation.
Assessment / Plan
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
Suspected septic emboli to the brain
HTN
DM type II
Nephrolithiasis
Recommendations:
Continue with ceftriaxone, although given likelihood of septic emboli, will increase to 2 g IV every 12 hours for GEOTHERMAL PRODUCTION MANAGER penetration.
CT Surgery has evaluated patient, and may be scheduling patient for valve replacement later today.
Repeat blood cultures today to assess for ongoing bacteremia
Obtain full susceptibilities of recovered strep from OSH, as well as complete record.
Check ESR and CRP in AM.
Care Review
Plan reviewed with: Physician (Cardiology; Nephrology)
[2024-12-27 12:07] LABS: Urine Character Slightly Cloudy (Clear)
[2024-12-27 12:25] LABS: Urine Red Blood Cell 50-60 /HPF (0-2)
[2024-12-27] MEDS: BACTROBAN 2% OINTMENT 1 APPLIC NASAL ×2 (12:45→23:43)
[2024-12-27 13:13] VITALS: BP 162/80
--- NOTE | 2024-12-27 15:13 | PTCARENOTE ---
Pt seen by Michelet Franklin and Avinash and Macey ISRAEL. Pt ate breakfast of cereal @ 07:30, aware.Pt clipped and bathed with CHG 4% soap and also 2% CHG wipes. Blood and urine cultures sent and type and screen. Pt's at
bedside. Pt anxious but coping well with much reassurance. Pt taken to [facility] @14:32.
--- NOTE | 2024-12-27 15:14 | W.PN.HOSP.TC ---
Today's Communication/Plan
-
For OR today
Continue IV Abx
Assessment / Plan
Assessment / Plan
Impression:
49-year-old male past medical history of depression, hypertension, insomnia, kidney stones who originally presented to [facility] on 12/17 for generalized weakness. stated that he has been declining for months and was fired from his job
2 months ago and since then has been increasingly depressed, with failure to thrive. He has had decreased p.o. intake, decreased urine output and constipation. He had 30 pounds of weight loss. He was also unsteady on his feet. He did not have
falls or dizziness or lightheadedness or vision changes or numbness or tingling or focal weakness. No fevers or chills. No chest pain or palpitations. No shortness of breath or cough. No nausea or vomiting.
Patient was found to be anemic with hemoglobin of 6.9, thrombocytopenia with platelets of 97. He was found to have acute renal failure with creatinine of 4.84. He was given 2 units of blood transfusion. He was found to have [place] valve aortic
endocarditis with strep possibly due to indolent dental infection as he had a cap Fall off approximately a month ago.
Seen by CT surgery and plan for OR (aortic valve replacement)
Assessment/plan:
[place] aortic valve endocarditis with aortic insufficiency secondary to Streptococcus mutans with splenic infarct/septic emboli to brain
Streptococcus mutans bacteremia
- Blood cultures negative since 12/20, currently on ceftriaxone
-Patient had extensive hematologic workup which was notable for lupus anticoagulant of 44 (normal <40), possible restricted M spike on protein electrophoresis, procalcitonin of 0.65, IgM kappa monoclonal band present on serum immunofixation,
vakq-[id number]-uanktvvc DNA titer 1.1 (normal <1.1), free kappa light chains of 154, free lambda chains of 125, PT of 15.8,
-Negative labs include fibrinogen, ANCA negative, Dani viper venom screen negative, antibeta-2 glycoprotein IgG antibody and IgA antibody, glomerular basement membrane IgG antibody, anticardiolipin IgG antibody, anticardiolipin IgM antibody, C3,
C4, hepatitis B surface antigen, surface antibody, hep C antibody, antistreptolysin O antibody, malaria/Babesia smear,
-[place] lambda light chain ratio 1.23,
- Continue through right upper extremity PICC line
-Echo showed EF of 60 to 65% severe thickening of the anterior posterior leaflets of the mitral valve without clear vegetations, moderate-sized oscillating heterogeneous echodensity attached to the noncoronary cusp, aortic valve is thickened and
calcified, mild to moderate eccentric aortic regurgitation, mild to moderate mitral regurgitation, small pericardial effusion, small left pleural effusion
- Transfered to [place] for curative aortic valve replacement given septic emboli to the brain
-No arrhythmias or CHF
-Patient was seen by hematology at [facility], unclear what the recommendations were
- Cardiothoracic surgery consulted
- ID consulted
- CT scan abdomen pelvis showed moderate ascites, moderate splenomegaly, hypodense lesion in the upper pole of the spleen concerning for splenic infarct, nonobstructing bilateral renal calculi, diffuse subcutaneous edema in the abdominal pelvic wall
- MRI brain showed multiple cortical and subcortical foci of diminished signal intensity suggesting blood products versus septic emboli
- Concern for underlying hematologic/rheumatologic process although dental infection could be precipitating event
12/[address] surgery.
Plan for OR today.
Infectious disease consulted recommended to continue Rocephin 2 g IV every 12 hours for AUTOMOTIVE PAINTER penetration.
Acute kidney injury possibly thromboembolic vs glomerulonephritis vs vasculitic
- Creatinine improved.
- Nephrology consulted
Anemia
- Initial hemoglobin 6.9 at [facility].
- Received 2 units blood transfusion at [place]
- monitor Hb
-continue ferrous gluconate
Thrombocytopenia
- monitor CBC
Tooth filling cap dislodgement
-outpatient follow up with dentist
Anxiety/depression
-continue xanax, fluoxetine, mirtazepine
Essential hypertension
-continue amlodipine, coreg, clonidine
CODE STATUS: Full code
DVT prophylaxis: Heparin
Diet: now NPO
Disposition: for OR today.
Total time spent on today's encounter was 65 minutes which included time spent in counseling the patient/family regarding diagnosis and treatment plan as listed above, goals of care, and symptom management. Case was discussed with nursing staff,
specialists, and care coordinators/case management. All labs and imaging personally reviewed by me. Remainder the time spent in detailed review of previous records, lab data, imaging, and other medical provider documentation.
Anticipated Discharge: > 48 hours
Subjective/Interval History
-
Date of Service: December 27, 2024
Patient seen and examined at bedside, denies any chest pain or shortness of breath, no abdominal pain, no nausea, no vomiting, no diarrhea or constipation.
Objective Data
-
Labs:
Laboratory Results
12/27/24
05:31
WBC 7.9
Hgb 7.8 L
Hct 23.2 L
Plt Count 96 L
Sodium 133 L
Potassium 4.5
Chloride 108 H
Carbon Dioxide 21 L
BUN 70 H
Creatinine 2.7 H
Glucose 107 H
Calcium 8.0 L
Total Bilirubin 0.5
AST 21
ALT 15
Alkaline Phosphatase 86
Vital Signs:
Vital Signs
Temp Pulse Resp BP Pulse Ox
98.3 F 87 18 162/80 94
12/27/24 13:14 12/27/24 13:13 12/27/24 13:14 12/27/24 13:13 12/27/24 13:14
I&O
12/26/24 12/27/24 12/28/24
06:59 06:59 06:59
Intake Total 240 / 240
Output Total 150 / 150 400 / 400
Balance -150 / -150 -160 / -160
Physical Exam
-
General: Well Developed, Well Nourished, No Apparent Distress and Comfortable
HEENT: Normocephalic, Atraumatic, Moist Mucous Membranes, No Ptosis, PERRLA and Nose Appears Normal
Respiratory: Clear to Auscultation and Non Labored Respirations
Cardiac: Regular Rhythm and S1/S2
Breast: Deferred by me
GI: Soft, Nontender, Nondistended and Normal Bowel Sounds
Genito-urinary: No Costovertebral Tender
Musculoskeletal: No Clubbing, No Cyanosis and No Edema
Skin: Warm
Neuro: Awake, Alert, Oriented, AO x 3 and No Motor Deficits
Psych: Calm
Data Reviewed
-
Diagnostic Radiology: Image personally visualized and interpreted and Report Reviewed by me
CT Scan: Image personally visualized and interpreted and Report Reviewed by me
Ultrasound: Image personally visualized and interpreted and Report Reviewed by me
MRI: Image personally visualized and interpreted and Report Reviewed by me
Medical Tests (Nuc Med, Echo etc): Image personally visualized and interpreted and Report Reviewed by me
Labs: Labs Reviewed by me
Old Records: Reviewed
[2024-12-27 15:15] LABS: Urine Character Cloudy (Clear)
[2024-12-27 15:25] LABS: Urine Red Blood Cell >100 /HPF (0-2); Urine Squamous Cell 0-2 /LPF (Few)
[2024-12-27 15:28] LABS: ACT+ - POC 104 Seconds (82-134)
[2024-12-27 16:27] LABS: ACT+ - POC 901 Seconds (82-134)
[2024-12-27 17:09] LABS: ACT+ - POC 698 Seconds (82-134)
[2024-12-27 17:34] LABS: B.E. - POC -1.1 mmol/L; Glucose - POC 127 mg/dl (70-99); HCO3 - POC 23 mmol/L (21-28); Hematocrit - POC 21 % PCV (42-52); Hemodilution- POC Yes; Hemoglobin Calculated - POC 7.1; Ionized Calcium - POC 1.03 mmol/L (1.15-1.33); Lactate - POC 0.41 mmol/L (0.36-0.75); O2 Saturation %Calculated-POC 100.0 % (94-98); PCO2 - POC 37 mmHg (35-48); PO2 - POC 506 mmHg (83-108); POC Comment CPB; Potassium - POC 5.3 mmol/L (3.5-5.1); Sodium - POC 136 mmol/L (136-145); Specimen Type - POC Arterial; pH - POC 7.41 (7.35-7.45)
[2024-12-27 17:42] LABS: ACT+ - POC 504 Seconds (82-134)
[2024-12-27 18:08] LABS: B.E. - POC -3.6 mmol/L; Glucose - POC 138 mg/dl (70-99); HCO3 - POC 22 mmol/L (21-28); Hematocrit - POC 23 % PCV (42-52); Hemodilution- POC Yes; Hemoglobin Calculated - POC 7.7; Ionized Calcium - POC 1.09 mmol/L (1.15-1.33); Lactate - POC 1.40 mmol/L (0.36-0.75); O2 Saturation %Calculated-POC 99.9 % (94-98); PCO2 - POC 43 mmHg (35-48); PO2 - POC 292 mmHg (83-108); POC Comment CPB; Potassium - POC 5.5 mmol/L (3.5-5.1); Sodium - POC 137 mmol/L (136-145); Specimen Type - POC Arterial; pH - POC 7.32 (7.35-7.45)
[2024-12-27 18:19] LABS: ACT+ - POC 591 Seconds (82-134)
[2024-12-27 18:36] LABS: B.E. - POC -1.7 mmol/L; Glucose - POC 156 mg/dl (70-99); HCO3 - POC 24 mmol/L (21-28); Hematocrit - POC 25 % PCV (42-52); Hemodilution- POC Yes; Hemoglobin Calculated - POC 8.5; Ionized Calcium - POC 1.04 mmol/L (1.15-1.33); Lactate - POC 1.36 mmol/L (0.36-0.75); O2 Saturation %Calculated-POC 99.9 % (94-98); PCO2 - POC 42 mmHg (35-48); PO2 - POC 268 mmHg (83-108); POC Comment CPB; Potassium - POC 5.6 mmol/L (3.5-5.1); Sodium - POC 138 mmol/L (136-145); Specimen Type - POC Arterial; pH - POC 7.36 (7.35-7.45)
[2024-12-27 18:49] LABS: ACT+ - POC 548 Seconds (82-134)
[2024-12-27 19:41] LABS: B.E. - POC -2.5 mmol/L; Glucose - POC 142 mg/dl (70-99); HCO3 - POC 23 mmol/L (21-28); Hematocrit - POC 26 % PCV (42-52); Hemodilution- POC Yes; Hemoglobin Calculated - POC 9.0; Ionized Calcium - POC 1.10 mmol/L (1.15-1.33); Lactate - POC 1.31 mmol/L (0.36-0.75); O2 Saturation %Calculated-POC 99.9 % (94-98); PCO2 - POC 41 mmHg (35-48); PO2 - POC 291 mmHg (83-108); POC Comment WARM; Potassium - POC 5.0 mmol/L (3.5-5.1); Sodium - POC 138 mmol/L (136-145); Specimen Type - POC Arterial; pH - POC 7.35 (7.35-7.45)
[2024-12-27 19:45] LABS: ACT+ - POC 140 Seconds (82-134)
[2024-12-27 19:58] LABS: ACT+ - POC 178 Seconds (82-134)
[2024-12-27 20:05] LABS: B.E. - POC -2.5 mmol/L; Glucose - POC 128 mg/dl (70-99); HCO3 - POC 24 mmol/L (21-28); Hematocrit - POC 25 % PCV (42-52); Hemodilution- POC Yes; Hemoglobin Calculated - POC 8.5; Ionized Calcium - POC 1.19 mmol/L (1.15-1.33); Lactate - POC 1.65 mmol/L (0.36-0.75); O2 Saturation %Calculated-POC 99.4 % (94-98); PCO2 - POC 50 mmHg (35-48); PO2 - POC 177 mmHg (83-108); POC Comment POST; Potassium - POC 4.8 mmol/L (3.5-5.1); Sodium - POC 138 mmol/L (136-145); Specimen Type - POC Arterial; pH - POC 7.29 (7.35-7.45)
[2024-12-27 20:06] LABS: ACT+ - POC 145 Seconds (82-134)
[2024-12-27] MEDS: HEPARIN SC (20:09)
[2024-12-27 20:15] LABS: B.E. - POC -2.4 mmol/L; Glucose - POC 113 mg/dl (70-99); HCO3 - POC 24 mmol/L (21-28); Hematocrit - POC 23 % PCV (42-52); Hemodilution- POC Yes; Hemoglobin Calculated - POC 7.9; Ionized Calcium - POC 1.08 mmol/L (1.15-1.33); Lactate - POC 1.64 mmol/L (0.36-0.75); O2 Saturation %Calculated-POC 98.6 % (94-98); PCO2 - POC 48 mmHg (35-48); PO2 - POC 131 mmHg (83-108); POC Comment POST; Potassium - POC 4.7 mmol/L (3.5-5.1); Sodium - POC 137 mmol/L (136-145); Specimen Type - POC Arterial; pH - POC 7.31 (7.35-7.45)
--- NOTE | 2024-12-27 20:24 | W.IMMPOSTOP ---
Addendum entered and electronically signed by Kranthi Denney MD 12/27/24 23:16:
[id number]
Original Note:
Surgical Immed Post Op Note
-
CARDIAC SURGERY OPERATIVE NOTE:
Preoperative Dx:
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
Moderate aortic insufficiency
Moderate mitral regurgitation (RHONDA)
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
Acute renal insufficiency (BUN/creat 78/4.[address] [facility], creat 2.7 on initial labs)
Anemia (starting Hgb/Hct in OR 6.0/18)
Thrombocytopenia (PLT 96)
Postoperative Dx:
Same
Procedures:
1) Median sternotomy
2) Cannulation for CPB (aortic/bicaval/retrograde/antegrade/LV vent via R SPV)
3) Resection of aortic valve, annular debridement
4) Limited septal myomectomy w/ removal of LVOT vegetations
5) Resection of 1 MV tertiary chordae w/ vegetation
6) AVR (initially w/ 25 On-X) - subsequent explant of AVR
7) Redo-AVR (23mm On-X)
Surgeon:
Kranthi Denney M.D.
Digital Media Designer:
Macey Freeman P.A.-C.
Anesthesia:
Dallas Mathias M.D. and Beata Escobedo C.R.N.A.
Perfusion:
Angelito Hawkins C.C.P.; CPB: 147min, XC: 133min
Findings:
Normal ascending aortic size & wall thickness
Minor pectus excavatum w/ slight displacement of heart towards L chest
Functionally bicuspid AV (with partial fusion of LCC and RCC), NCC w/ significant distruction w/ embolic vegetations on aortic and ventricular surfaces; one vegetation with very narrow stalk.
Multi-lobular vegetation on septal myocardium - resected
Minor vegetation on tertiary MV chordae - resected
Annulus and LVOT copiously irrigated w/ ABX irrigation
AV annulus size for a 25mm On-X; slightly tight, but visually good fit - annular sutures placed & 25mm On-X lowered into position w/ difficulty obtaining intra-annular positioning. Secured Cor-Knots circumferentially; good placement around 85% of
annulus; however, 15% of annulus was lying below valve. While the valve was working well on functional testing, I was concerned that future pannus ingrowth over this small portion of subvalvular annulus could negatively impact the long-term
function of the valve
AV explanted - AVR re-performed w/ placement of 23mm On-X with excellent visual results, secured w/ 15 interrupted, pledgetted sutures and CorKnots
Post-AMANDA: Normal biventricular function w/ LVEF 65%, well-seated AVR w/ mean gradient 11mmHg, normal washing jets. MV w/ MILD-to-mod regurgitation w/ improvement in preoperative RHONDA.
Post-initial closure, intraoperative CT output higher than expected w/ ~200mL out the pleural tubes over first 20 min. I opted to re-explore the chest. All surgical sites inspected and hemostatic. Sternum was very friable and vascular w/ venous
bleeding/oozing from multiple sources. We addressed each of these and reapproximated the sternum.
Transfusions:
4U PRBC, 2pk PLT, 2U FFP
Additional protamine administered x 2
Complications:
Initial AVR, despite measuring appropriately, did NOT secure in ideal intra-annular location requiring explant and redo AVR
Pt w/ high CT output post initial closure - requiring re-exploration
Medical coagulopathy and anemia requiring transfusions as noted above
Low-urine output intraoperatively w/ total UO 150mL for the case
Implants:
On-X 23mm mechanical AVR ([id number])
CT x 4 (B/L pleural, inferior mediastinal, superior mediastinal)
Sternal wires x 4
Sternal 'X' plate, 'Square' plate, and 'Bar' plate w/ 10mm screws
Condition:
Levophed 2, insulin 0.5, precedex 0.5
67 A-paced, 105/61, CVP 12, 99%
Guarded to CVICU
[2024-12-27] MEDS: PACERONE PO ×2 (20:25→23:39)
[2024-12-27] MEDS: NEURONTIN PO ×2 (20:25→23:39)
[2024-12-27] MEDS: SENOKOT-S PO (20:25)
[2024-12-27 20:57] LABS: ACT+ - POC 126 Seconds (82-134)
[2024-12-27 21:00] LABS: B.E. - POC -1.5 mmol/L; Glucose - POC 110 mg/dl (70-99); HCO3 - POC 23 mmol/L (21-28); Hematocrit - POC 25 % PCV (42-52); Hemodilution- POC Yes; Hemoglobin Calculated - POC 8.4; Ionized Calcium - POC 1.05 mmol/L (1.15-1.33); Lactate - POC 1.41 mmol/L (0.36-0.75); O2 Saturation %Calculated-POC 98.6 % (94-98); PCO2 - POC 39 mmHg (35-48); PO2 - POC 120 mmHg (83-108); POC Comment POST OP; Potassium - POC 4.7 mmol/L (3.5-5.1); Sodium - POC 139 mmol/L (136-145); Specimen Type - POC Arterial; pH - POC 7.39 (7.35-7.45)
[2024-12-27] MEDS: NSS 500 IV (22:45)
[2024-12-27 22:51] LABS: B.E. -0.6 mmol/L; HCO3 24.9 mmol/L (21-28); O2 Saturation % 99.0 % (94-98); PCO2 44 mmHg (35-48); PO2 104 mmHg (83-108); Potassium 5.1 mMOL/L (3.5-5.1); Sodium 134 mMOL/L (136-145)
[2024-12-27 22:51] LABS: Glucose - Point of Care 125 mg/dl (70-99)
[2024-12-27 22:54] LABS: Hematocrit 22.8 % (39.0-52.0); Hemoglobin 8.1 g/dL (13.0-18.0)
--- NOTE | 2024-12-27 23:00 | PTCARENOTE ---
Received patient from [facility] at 2245. Patient unresponsive, intubated and sedated. SR on the monitor, rates 60-70's, pressure stable on 2 of Levo, AV wires in place with no pacing noted at the time of arrival, pulses palpable throughout, trace LE
edema, click on auscultation. ETT 26 at the center lip, patient suctioned for moderate oral secretions and mouth care provided; lungs coarse throughout, CVNP aware, see work list for SIMV vent settings; CTx4 in place to -20 cm wall suction, no air
leak, tidaling, or crepitus noted; initial output on arrival was ~70 mLs from pleural CTs, CVNP aware. Hypoactive BS, abdomen round, SNT; Junior catheter in place draining clear, yellow urine with low output. MS Aquacel CDI with scant drainage marked
for future reference, skin otherwise grossly intact. RIJ Cordis with slic, L forearm PIV and radial art line, RUE single lumen PICC; all applicable lines leveled and calibrated. On Levo, precedex, and insulin. See worklist for intervention and
titration details.
[2024-12-27 23:03] LABS: APTT 34.6 Sec (23.4-35.0); INR 1.55; PT 18.8 Sec (11.4-14.6)
[2024-12-27 23:05] LABS: Platelet Count 60 10^3/uL (130-400)
[2024-12-27 23:14] LABS: Blood Urea Nitrogen 66 mg/dl (9-20); Estimated Creatinine Clearance 40 ml/min; Glucose 117 mg/dl (70-99); Magnesium 2.6 mg/dl (1.6-2.3)
[2024-12-27] MEDS: VANCOCIN 200 IV (23:38)
[2024-12-27] MEDS: TYLENOL PO (23:39)
[2024-12-27] MEDS: VITAMIN B1 PO (23:48)
[2024-12-27] MEDS: COREG PO (23:48)
[2024-12-27] MEDS: FLUSH (NSS) IV ×2 (23:49)
[2024-12-28] VITALS (31 sets, daily range): BP systolic 67–136; BP diastolic 50–95; BMI 23.6
[2024-12-28] LABS: Glucose - Point of Care 143 mg/dl (70-99)
[2024-12-28] MEDS: CALCIUM GLUCONATE 100 IV ×2 (00:14→04:13)
[2024-12-28] MEDS: DILAUDID 0.5 MG IV ×2 (00:23→04:55)
[2024-12-28 00:59] LABS: Glucose - Point of Care 112 mg/dl (70-99)
--- NOTE | 2024-12-28 01:21 | W.PN.CT ---
Addendum entered and electronically signed by Kranthi Denney MD 12/28/24 09:59:
I saw and examined the patient.
The PA's note was reviewed and I agree with the note.
Comment:
POD#1 s/p AVR (#23 On-X), septal myomectomy/vegectomy, resection of isolated tertiary MV chordae, drainage of B/L pleural effusions (500 R/500 L)
N: Intact. Pt. w/ image of B/L cerebral embolic events preop.
CV: 64 sinus. 125/68. CVP 6. 98% - levophed 11 - wean as tolerated. CT: 40/50 since 7AM (currently 10AM)
P: Remains intubated. 7.31/43/159/21.7/-4.3 @ 100% w/ PEEP 8 - wean O2 as tolerated, follow ABGs; currently down to 40% FiO2. CXR w/ minor R haziness, no effusions B/L, no mediastinal widening. Work towards extubation
GI: NPO.
: Creat 2.6 - STABLE! ; UO: 125 + 35 - maintain cortes, follow UO - nephrology following
Hgb: Hgb 9.7, PLT: 133
ID: ID following, continue ABX via PICC; WBC 31.2; no fevers. Cultures pending
ENDO: Insulin gtt. BS controlled
FEN: K 5.5 this AM. - temporize. CVP 6, likely intravascularly dry will give 500mL bolus of NSS
PROPH: SCDs. Start heparin gtt tomorrow
DISPO: ICU, full code
Original Note:
Today's Communication / Plan
-
POD #1
Neuro:
-Precedex while intubated, PRNs available for RASS goal
-multimodal pain management
Card:
-NSR, 1st degree block on EKG
-Levophed for goal MAP > 65 mmHg, hold BB, cont. amio
-cont. ASA
-CVP: 6-8
-ScvO2 from cordis: 67.3%, calculated JACOBY CO/CI 5.8/[address] 2M 162, L/R pleural 335 out in 8 hrs
-PW: A+V, some inappropriate A pacing refractory to lowering A-wire mA, now on VVI
-Kenny hugger to avoid hypothermia
-if no improvement in pressor/hypoxia may consider echo today
Pulm:
-SIMV 18/450 (6 cc/kg IBW)/100%/8, increase PEEP for goal SPO2
-PF ratio 65, ddx pulm edema from volume overload > SIRS/pre-surgical sepsis > transfusion related
-adequate sedation for vent mechanics
-closely monitor UOP, may need diuretic vs UF removal with HD
Bruno//FEN:
-Frequent BMPs, strict I&Os, goal pH > 7.2
-UOP 125 cc in 8 hrs
-renal following, appreciate recs for etiology ddx sepsis/infectious immune complex GN/embolic
-keep cortes
GI:
-NPO
-check LFTs, lactate
Endo:
-insulin gtt
Heme:
-transfuse for goal Hgb ~8, platelet >100 if bleeding, judiciously transfuse 2/2 hypoxia
ID:
-appreciate ID recs, ceftriaxone 2g q12 hr, follow repeat BC for clearance
Assessment / Plan
-
AV endocarditis with embolic vegetations and functionally bicuspid AV valve with moderate AR and MR s/p AVR (25 mm On-X) s/p explant and redo AVR (23mm On-x), LVOT vegetation debridement, MV chordae vegetation resection and debridement c/b post op
bleeding and re-exploration/venous bleeding and oozing from the sternum on 12/27/24 POD #[address] Denney
Post-AMANDA: Normal biventricular function w/ LVEF 65%, well-seated AVR w/ mean gradient 11mmHg, normal washing jets. MV w/ MILD-to-mod regurgitation w/ improvement in preoperative RHONDA.
EKG 12/27/24 NSR 1st degree AVB
Radiology: CT [place]: Sm L pleural effusion, mod ascities, mod splenomegaly hypodense lesion upper pole of spleen concern for splenic infarct. MRI: 12/23/24 Multiple cortical and subcortical foci concern for septic emboli which can demonstrate
ischemic changes with restricted diffusion as well as hemorrhagic damage to the brain. Linear areas of non flair suppression and diminished signal suggest possible subarachnoid hemorrhage
Echo 12/22/24 EF 60-65, mild LVH, mildly dilated LA, severe thickening of anterior and posterior mitral leaflets,mild-mod MR, mod sized 0.4 x 0/7 oscillating heterogeneous echodensity attahced to noncoronary cusp, mild-mod AR, PG 23.5/MG 13.1, small
pericardial effusion
Assessment:
Strep Mutans AV endocarditis
Acute hypoxic respiratory failure
Strep Mutans bacteremia
moderate AI
moderate MR with RHONDA
metastatic septic emboli to the brain, spleen
oliguric CORNELIO
coagulopathy
transfusion dependent anemia
thrombocytopenia
unintentional weight loss
dental cap dislodgement
hx anxiety/depression
hx HTN
Subjective
Procedure
s/p AVR (25 mm On-X) s/p explant and redo AVR (23mm On-x), LVOT vegetation debridement, MV chordae vegetation debridement on 12/27/[address] Denney
-
Date of Service: December 28, 2024
Bedside sign out from OR staff, noted levo @ 2, Dex @ 0.5, insulin @ 1.2. s/p 2 L crystalloid, 4 U PRBC, 2 U FFP, 2 platelets. no PA cath. Med CT x2, R+L PL CT, A+V wires. post PCXR with ETT above naseem, no pleural effusions or PTX.
Notified by RN that he was becoming more hypoxic later in the shift. noted rhonchi/rales on exam which was not present initially. FiO2 at 100% and satting 85%. PEEP incrementally increased to 8 cmH2O, levo requirement increased from 6 to 18 mcg.
Repeat PCXR showing increased bilateral non-focal GGO's, no pleural effusions or PTX, ETT still in appropriate position.
Objective Data
-
PT 18.8 Sec (11.4-14.6) H 12/27/24 22:46
INR 1.55 12/27/24 22:46
APTT 34.6 Sec (23.4-35.0) 12/27/24 22:46
Vital Signs
Vital Signs
Temp Pulse Resp BP Pulse Ox
97.4 F 69 17 95/67 90
12/28/24 01:00 12/28/24 01:00 12/28/24 01:00 12/28/24 01:00 12/28/24 00:50
CT Intake/Output/Weight
12/27/24 12/27/24 12/28/24
06:59 18:59 06:59
Intake Total 240 / 461.9 221.9 / 461.9
Output Total 150 / 150 400 / 677 277 / 677
Balance -150 / -150 -160 / -215.1 -55.1 / -215.1
SaO2: 90
Physical Exam
-
General: Other (RASS -1 to -2)
Cardiovascular: Regular rate & rhythm, No Murmurs and No Rub
Respiratory: Equal, Rhonchi and Decreased Breath Sounds
Sternum: Stable
Incision: Clean, Dry and Intact
Extremities: Edema +2 and No Erythema
Data Reviewed
-
Lab Results: Results Reviewed
Medications: Active Meds Reviewed
Chest X-Ray: Report Reviewed and Image Reviewed
ECG: Report Reviewed and Image Reviewed
[2024-12-28] MEDS: ANCEF 5 IV ×3 (01:30→18:05)
[2024-12-28] MEDS: ASPIRIN 300 MG RECTAL (01:51)
[2024-12-28 02:00] LABS: B.E. -3.0 mmol/L; HCO3 24.6 mmol/L (21-28); O2 Saturation % 92.8 % (94-98); PCO2 56 mmHg (35-48); PO2 65 mmHg (83-108)
[2024-12-28 02:03] LABS: Glucose - Point of Care 112 mg/dl (70-99)
[2024-12-28] MEDS: VERSED 0.5 MG IV ×2 (02:20→03:14)
--- NOTE | 2024-12-28 02:25 | PTCARENOTE ---
Addendum entered by Mandy Willis RN 12/28/24 02:55:
Temporary pacer settings also adjusted by CVNP at this time.
Original Note:
Patient desatting to 86-87% on ventilator. ABG drawn and sent. PEEP increased per CVNP, respiratory and CVNP at bedside to assess patient. ABPs decreased with ventilator setting changes; Levo titrated, see work list.
[2024-12-28] MEDS: TYLENOL PO ×2 (02:40→13:08)
[2024-12-28 03:09] LABS: Glucose - Point of Care 126 mg/dl (70-99)
[2024-12-28 03:25] LABS: B.E. -4.3 mmol/L; HCO3 22.1 mmol/L (21-28); O2 Saturation % 99.2 % (94-98); PCO2 46 mmHg (35-48); PO2 110 mmHg (83-108); Potassium 5.9 mMOL/L (3.5-5.1)
[2024-12-28 03:31] LABS: Hematocrit 27.7 % (39.0-52.0); Hemoglobin 9.7 g/dL (13.0-18.0); Mean Corp Hgb Conc. 35.0 g/dL (33.0-37.0); Mean Corpuscular Volume 82.7 fL (80.0-94.0); Nucleated Red Blood Cells % 0 % (-); Platelet Count 133 10^3/uL (130-400); Red Cell Dist. Width 17.5 % (11.5-14.5)
[2024-12-28 03:40] LABS: INR 1.33; PT 16.8 Sec (11.4-14.6)
[2024-12-28 03:41] LABS: Fibrinogen 298 MG/DL (199-459)
[2024-12-28 03:49] LABS: ALT (SGPT) 21 U/L (0-50); AST (SGOT) 47 U/L (17-59); Albumin 2.2 g/dl (3.5-5.0); Alkaline Phosphatase 66 U/L (38-126); Blood Urea Nitrogen 66 mg/dl (9-20); Calcium 7.6 mg/dl (8.4-10.2); Carbon Dioxide 23 mmol/L (22-30); Chloride 108 mmol/L (98-107); Estimated Creatinine Clearance 35 ml/min; Glucose 131 mg/dl (70-99); Magnesium 2.6 mg/dl (1.6-2.3); Potassium 5.6 mmol/L (3.5-5.1); Sodium 137 mmol/L (135-145); Total Protein 5.0 g/dl (6.3-8.2); eGFR 29.13
[2024-12-28] MEDS: PRECEDEX 100 IV (03:49)
[2024-12-28] MEDS: LEVOPHED 250 IV ×2 (04:33→10:08)
[2024-12-28 05:04] LABS: Glucose - Point of Care 117 mg/dl (70-99)
--- NOTE | 2024-12-28 05:08 | PTCARENOTE ---
Patient washed with CHG wipes, eyes opened spontaneously, was able to answer yes/no questions with repetition, endorsed severe pain with movement, Dilaudid given, see MAR. ABP stable on Levo
[2024-12-28 06:08] LABS: B.E. -4.3 mmol/L; HCO3 21.7 mmol/L (21-28); O2 Saturation % 99.3 % (94-98); PCO2 43 mmHg (35-48); PO2 159 mmHg (83-108)
[2024-12-28 07:03] LABS: Glucose - Point of Care 112 mg/dl (70-99)
--- NOTE | 2024-12-28 07:30 | PTCARENOTE ---
Assumed care of patient. Walking rounds completed with previous RN. Pt assessed while he was lying in bed. Pt RAAS 1. Oriented x4. Able to shake his head yes/no appropriately to orientation questions. Shakes his head 'yes' to iritation with the ETT.
Shakes his head 'no' to nausea. Able to squeeze hands & wiggle toes on command. Precedex infusing, increased per orders to obtain RAAS 0--2. SR with 1st degree AVB on tele with rates in the 60s. BP supported with levophed gtt. Titrating per orders.
+click +rub. CVP 7-9. Bilateral radial and DP pulses palpable. B/l hand and ankle +2 edema. Epicardial AV wires set to VVI 50/15/1, no pacing noted. POX 100%. 8.0 ETT 26cm at the lip. SIMV 80% 18 450 5. Lungs coarse. Clear secretions orally and via
ETT. Mediastinal chest tubes x2 y-sited to 1 atrium to -20cm suction draining serosanguineous fluid. Mediastinal chest tubes x2 y-sited to 1 atrium to -20cm suction draining serosanguineous fluid. No air leaks, tidaling, crepitus noted. Abdomen
soft, nontender. Hypoactive BS. Junior intact draining clear yellow urine, inadequate amounts, CT PA aware. Sternal incision covered with Antibacterial dressing, small amount of shadowing. CT dressing CDI. Right IJ cordis with slick intact. Right
upper arm PICC intact. Left forearm 20g PIV intact infusing insulin gtt per Critical Care Glycemic Protocol. Left radial geremias intact. CVP & [place] flushed, leveled, and zeroed. [place] correlating with cuff BP. See MAR for medication administration.
See worklist for complete nursing assessment. Plan of care reviewed with patient.
--- NOTE | 2024-12-28 07:52 | W.PN.ANS.POP ---
Anesthesia Post Operative
- Anesthesia Post Op Note
Vital Signs Stable-See Nursing Note: Yes
Airway Patent: Yes
Adequate Pain Control: Yes
Change in Mental Status: No
Current Postoperative Nausea & Vomiting: No
Anesthesia Complications: No
General Anesthetic Recall: No
Unplanned Admission: No
Post Op Hydration Adequate: Yes
[2024-12-28 07:55] LABS: ALT (SGPT) 22 U/L (0-50); AST (SGOT) 54 U/L (17-59); Albumin 2.3 g/dl (3.5-5.0); Alkaline Phosphatase 66 U/L (38-126); Blood Urea Nitrogen 70 mg/dl (9-20); Calcium 8.4 mg/dl (8.4-10.2); Carbon Dioxide 22 mmol/L (22-30); Chloride 107 mmol/L (98-107); Estimated Creatinine Clearance 34 ml/min; Glucose 99 mg/dl (70-99); Potassium 5.5 mmol/L (3.5-5.1); Sodium 137 mmol/L (135-145); Total Protein 5.2 g/dl (6.3-8.2); eGFR 27.84
[2024-12-28 08:12] LABS: Glucose - Point of Care 88 mg/dl (70-99)
--- NOTE | 2024-12-28 08:24 | CON.INTV ---
Consultation
Consultation Request
Date/Time Consultation Requested: 12/27/2024 - 2003
Date/Time Consultation Performed: 12/28/2024816
Requesting Provider: Ricardo Ardon PA-C
Performing Provider: Dr. Reinoso
Reason for Consultation: AV resection with AVR followed by redo AVR
Medical History
-
Chief Complaint: Generalized weakness
History of Present Illness:
49-year-old male with a past medical history of depression, hypertension, insomnia and kidney stones who presented from outside hospital due to endocarditis. He presented to [facility] on 01/07 due to generalized weakness with failure to thrive and
unintentional weight loss with 30 pounds since October 2024. He lost his job 2 months ago and has been increasingly more depressed. He was found to be anemic, thrombocytopenic with acute kidney injury and elevated proBNP. Imaging showed small
left-sided pleural effusion with moderate ascites, splenomegaly with a splenic infarct and multiple nonobstructing renal calculi with diffuse subcutaneous edema. He was found to have septic emboli to the brain with bilateral cortical and
subcortical cerebral involvement. He was transfused 2 units PRBCs and then an echocardiogram was performed showing aortic valve endocarditis with moderate AI. He was transferred here to [facility] for cardiothoracic intervention. On
further review of his echocardiogram he has significant mobile vegetations on his aortic valve with associated moderate AI with a large mobile LVOT vegetation attached to his septum. Due to this, urgent surgical intervention was warranted and the
patient was recommended for surgery and consented on 12/27. Patient brought to the CV OR on the evening of 12/27 and underwent aortic valve resection with annular debridement, limited septal myomectomy with removal of LVOT vegetations, resection of 1
mitral valve tertiary chordae with vegetation, initially had a 25 mm aortic valve replacement which was subsequently explanted and redo AVR was performed with a mechanical 23 mm AVR. Patient transferred to the CVICU postoperatively and it investment/portfolio manager
services consulted for additional management/recommendations.
When I saw the patient, he was resting in bed in no acute distress. Current BP 117/61 via A-line, BP via NIBP 99/65, heart rate 68, saturating 95% on 10 L/min via midflow nasal cannula, CVP 4, and currently on insulin drip at 2.3 units/hr and
Levophed at 4 mcg/min. He feels well, just tired but denies shortness of breath, chest pain, BONILLA, nausea, fevers or chills.
PMHx: Depression, hypertension, insomnia, kidney stones
PSHx: JJ stent
Past Medical History
Past Medical History: Other (Above as per HPI)
Past Surgical History: Other (Above as per HPI)
Social History
Tobacco: Non-smoker
Alcohol: None
Drug: None
Family History
Family History: Reviewed & Not Pertinent
Allergies / Home Medications
Allergies
Allergy/AdvReac Type Severity Reaction Status Date / Time
Sulfa (Sulfonamide Allergy Anaphylaxis Verified 12/26/24 21:26
Antibiotics)
sulfite Allergy Anaphylaxis Verified 12/26/24 21:26
Home Medications
�Medication �Instructions �Recorded �Confirmed �Last Taken �Type
acetaminophen 325 mg tablet 650 mg PO Q6H PRN anemia 12/26/24 12/26/24 12/23/24 13:23 History
alprazolam 0.5 mg tablet 0.5 mg PO DAILY Mental 12/26/24 12/26/24 Unknown History
Health/Anxiety
amlodipine 5 mg tablet 5 mg PO BID Blood Pressure 12/26/24 12/26/24 12/26/24 08:54 History
ascorbic acid (vitamin C) 500 mg PO BID Supplement 12/26/24 12/26/24 12/26/24 11:40 History
carvedilol 25 mg tablet 25 mg PO BID Blood Pressure 12/26/24 12/26/24 12/26/24 08:55 History
ceftriaxone 2 gram intravenous 2 g IV DAILY Infection 12/26/24 12/26/24 Unknown History
solution
clonidine HCl 0.1 mg tablet 0.1 mg PO Q6HPRN PRN HTN SBP>160 12/26/24 12/26/24 Unknown History
ergocalciferol (vitamin D2) 1,250 1,250 mcg PO QWEEK Supplement 12/26/24 12/26/24 12/20/24 14:06 History
mcg (50,000 unit) capsule
ferrous gluconate 324 mg (38 mg 324 mg PO DAILY Supplement 12/26/24 12/26/24 12/26/24 11:42 History
iron) tablet
fluoxetine 40 mg capsule 40 mg PO DAILY Mental 12/26/24 12/26/24 12/26/24 08:54 History
Health/Anxiety
folic acid 1 mg tablet 1 mg PO DAILY Supplement 12/26/24 12/26/24 12/26/24 08:55 History
heparin (porcine) 5,000 unit/mL 5,000 unit SC Q8H Blood Clot 12/26/24 12/26/24 12/26/24 16:23 History
injection solution Prevention/Tx
mirtazapine 15 mg disintegrating 15 mg PO HS Mental Health/Anxiety 12/26/24 12/26/24 12/25/24 23:01 History
tablet
morphine 15 mg immediate release 15 mg PO Q6H PRN Moderate Pain 12/26/24 12/26/24 12/26/24 13:25 History
tablet (4-6)
multivitamin with folic acid 400 1 tab PO DAILY Supplement 12/26/24 12/26/24 12/26/24 08:54 History
mcg tablet
pantoprazole 40 mg tablet,delayed 40 mg PO DAILY Gastrointestinal 12/26/24 12/26/24 12/26/24 08:55 History
release Issue
polyethylene glycol 3350 17 gram 17 g PO DAILY Gastrointestinal 12/26/24 12/26/24 12/24/24 08:06 History
oral powder packet Issue
thiamine mononitrate (vit B1) 100 100 mg PO BID Supplement 12/26/24 12/26/24 12/26/24 11:40 History
mg tablet
zolpidem 12.5 mg tablet,extended 12.5 mg PO HS Sleep 12/26/24 12/26/24 12/16/24 History
release,multiphase
Review of Systems
-
History Source: Patient
All other systems: Negative unless noted
Vitals / Labs / Diagnostic Testing
Vital Signs
Temp Pulse Resp BP Pulse Ox
98.0 F 63 18 120/65 99
12/28/24 10:00 12/28/24 10:00 12/28/24 10:00 12/28/24 10:00 12/28/24 10:00
Lab Data
12/28/24 10:00
Laboratory Results
12/27/24 12/28/24 12/28/24
22:46 01:54 03:11
PT 18.8 H 16.8 H
INR 1.55 1.33
APTT 34.6
pH 7.36 7.25 L 7.29 L
pCO2 44 56 H 46
pO2 104 65 L 110 H
HCO3 24.9 24.6 22.1
O2 Delivery Level
12/28/24 12/28/24
05:56 09:58
PT
INR
APTT
pH 7.31 L 7.36
pCO2 43 37
pO2 159 H 106
HCO3 21.7 20.9 L
O2 Delivery Level
Microbiology
12/27/24 05:31 Nose MRSA Screen - Final
No Methicillin Resistant Staphylococcus aureus isolated.
12/27/24 17:14 Heart Fungal Culture - Preliminary
Culture in progress.
Positive cultures are reported as soon as detected.
Final report to follow in four to five weeks.
12/27/24 17:06 Heart Fungal Culture - Preliminary
Culture in progress.
Positive cultures are reported as soon as detected.
Final report to follow in four to five weeks.
Diagnostic Testing:
Physical Exam
-
HEENT: Normocephalic and Anicteric
Cardiovascular: S1/S2 (Click heard on S2 at anterior precordium) and Peripheral Edema (+3 lower extremity pitting edema)
Respiratory: Wheeze (negative), Rhonchi (negative), Non-Labored Respirations and Other (Coarse breath sounds heard bilaterally)
GI: Soft, Non Distended, Non Tender and Normal Bowel Sounds
Neurology: Awake, Alert, Tremors (negative) and Other (Drowsy at times)
Skin: Warm and Dry
General: Respiratory Distress (negative), Comfortable, Fever (negative) and Chills (negative)
Assessment
-
Assessment: 49-year-old male with a past medical history of depression, hypertension, insomnia and kidney stones who presented from outside hospital due to endocarditis. He presented to [facility] on 01/07 due to generalized weakness with failure to
thrive and unintentional weight loss with 30 pounds since October 2024. He lost his job 2 months ago and has been increasingly more depressed. He was found to be anemic, thrombocytopenic with acute kidney injury and elevated proBNP. Imaging showed
small left-sided pleural effusion with moderate ascites, splenomegaly with a splenic infarct and multiple nonobstructing renal calculi with diffuse subcutaneous edema. He was found to have septic emboli to the brain with bilateral cortical and
subcortical cerebral involvement. He was transfused 2 units PRBCs and then an echocardiogram was performed showing aortic valve endocarditis with moderate AI. He was transferred here to [facility] for cardiothoracic intervention. On
further review of his echocardiogram he has significant mobile vegetations on his aortic valve with associated moderate AI with a large mobile LVOT vegetation attached to his septum. Due to this, urgent surgical intervention was warranted and the
patient was recommended for surgery and consented on 12/27. Patient brought to the CV OR on the evening of 12/27 and underwent aortic valve resection with annular debridement, limited septal myomectomy with removal of LVOT vegetations, resection of 1
mitral valve tertiary chordae with vegetation, initially had a 25 mm aortic valve replacement which was subsequently explanted and redo AVR was performed with a mechanical 23 mm AVR. Patient transferred to the CVICU postoperatively and it investment/portfolio manager
services consulted for additional management/recommendations.
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
Impression:
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
of 1 MV tertiary chordae with vegetation, AVR initially with 25 mm with difficulty obtaining intra annular positioning s/p explantation and redo mechanical AVR with 23 mm (POD#1)
#Septic emboli with bilateral cortical and subcortical cerebral involvement, spleen involvement + CORNELIO
#Anemia + thrombocytopenia
#Leukocytosis
#CORNELIO
#Depression
#Insomnia
#Kidney stones
Plan:
Patient was extubated today (12/28), and is currently saturating 95% on 10 L/min midflow nasal cannula and breathing comfortably
Continue to wean down supplemental O2 flow rate while maintaining SpO2 >90-94%
prn nebulized bronchodilators - not currently bronchospastic
Encourage incentive spirometer use q1hr while awake
Pulmonary artery catheter parameters will be followed
Pressors/antihypertensive/inotropes/diuretics will be provided as needed
Maintain MAP>65
Replete electrolytes with K>4, Mg>2
Continue antibiotics as per ID � currently on ceftriaxone
Neurology also following due to septic emboli to INSTRUMENTATION ENGINEERING TECHNICIAN and he is currently on Keppra, aspirin to be given (May need to give rectal if patient not able to take PO meds); CT head pending for tonight
Continue neurological checks + NIHSS q shift
Nephrology following due to CORNELIO; trend sCr and UOP; renally dose all meds/Abx
Monitor chest tube output (bilateral pleural chest tubes + mediastinal chest tubes x 2)
Monitor hemoglobin
Monitor platelet count and coags
Transfuse blood products as needed to maintain Hb>7g/dL, plt>50k (given post-operative status)
CT surgery managing chest tubes
Monitor blood sugar to maintain euglycemia with goal BG 110-140
Insulin drip per protocol
Aspiration precautions
DVT prophylaxis
Early nutrition
Early mobilization
Land Inspector services will continue to follow along while patient remains in the CVICU.
Critical care statement: A total of 41 minutes of critical care time was provided for this patient today. This includes management of ventilator, spontaneous breathing trial, arterial blood gases, pressors, of unstable vital signs, evaluation of the
patient at bedside, reviewing the patient's pertinent medical records including radiographs, microbiology, laboratory evaluations, and discussion with primary team and critical care nursing.
[2024-12-28] MEDS: LOPRESSOR PO ×2 (08:41→22:49)
[2024-12-28] MEDS: PROTONIX PO (08:42)
[2024-12-28] MEDS: NEURONTIN PO ×2 (08:42→16:47)
[2024-12-28] MEDS: SENOKOT-S PO ×2 (08:42→20:26)
[2024-12-28] MEDS: LOW STRENGTH ASPIRIN PO (08:42)
[2024-12-28] MEDS: PACERONE PO ×2 (08:42→16:47)
--- NOTE | 2024-12-28 08:42 | W.PN.NEPH.PH ---
Today's Communication / Plan
-
Pressor support to keep MAP ~70
Cortes
Repeat BMP at 10:00
Will treat potassium medically if continues to worsen
Assessment/Plan
-
Impression:
CORNELIO
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
bleeding and re-exploration/venous bleeding and oozing from the sternum on 12/27/24
VDRF post op
Hyperkalemia
Septic brain emboli
Splenic infarct
Strep mutans bacteremia
Anemia
Thrombocytopenia
Anxiety/depression
History of obstructive uropathy due to nephrolithiasis with double-J stent
Plan:
Creatinine at 2.7 (2.6 on presentation)
Hyperkalemia and decreasing urine output likely precipitated by hemodynamic instability, maintain MAP ~70 with current pressor support
Need to maintain MAP at 65 or greater to augment renal perfusion pressure
Chest x-ray personally reviewed with airspace consolidation (volume vs infiltrate) Fio2 ~60%
CORNELIO prior to surgery is presumed to be secondary to infectious endocarditis with possible infectious immune complex GN but could also be atheroembolic
Previous serological workup was reviewed from [facility]
UA notes: 4+ blood and 4+ albumin, follow-up complement levels and urine eosinophil
Maintain cortes
no acute Hd indication yet
35 minutes critical care time spent with the patient
Patient critically ill on pressor support and ventilation postoperative with CORNELIO and decreasing uop
Total Time Spent with Patient (in minutes): 35
-
-
Date of Service: December 28, 2024
CC / HPI / ROS
-
Chief Complaint:
CORNELIO
History of Present Illness:
creatinine at 2.7
s/p AVR for IE on 12/27
Hemodynamically labile
Remains on ventilator
Review of Systems:
Oliguric overnight
Cortes cath
Intubated with FiO2 of 60%
Chest tube
Labs
-
Labs:
WBC Cancelled 12/28/24 10:00
RBC Cancelled 12/28/24 10:00
Hgb Cancelled 12/28/24 10:00
Hct Cancelled 12/28/24 10:00
Plt Count Cancelled 12/28/24 10:00
eGFR 27.84 12/28/24 07:19
Phosphorus 7.0 mg/dl (2.5-4.5) H 12/28/24 03:11
Albumin 2.3 g/dl (3.5-5.0) L 12/28/24 07:19
Physical Exam
-
Vital Signs:
Vital Signs
Temp Pulse Resp BP Pulse Ox
97.9 F 61 18 95/69 100
12/28/24 08:00 12/28/24 08:10 12/28/24 08:10 12/28/24 08:00 12/28/24 08:10
Cardiovascular:: Regular rate and rhythm
Respiratory:: Bilateral: Coarse
Lung Excursion:: Normal
Abdomen:: Nontender and Soft
Bowel Sounds:: Decreased
Extremity Edema:: None: Bilateral:
Cortes Catheter: Yes
Other Findings::
GEN: intubated but awake and interactive
ET tube
chest tube
[2024-12-28] MEDS: FLUSH (NSS) 1 FLUSH IV ×5 (08:45→22:20)
[2024-12-28] MEDS: BACTROBAN 2% OINTMENT 1 APPLIC NASAL ×2 (08:45→20:25)
[2024-12-28] MEDS: ROCEPHIN 2000 MG IV ×2 (08:46→22:19)
[2024-12-28] MEDS: STERILE WATER FOR INJECTION 20 ML IV ×2 (08:46→22:19)
[2024-12-28 09:03] LABS: Glucose - Point of Care 91 mg/dl (70-99)
[2024-12-28 09:13] LABS: Magnesium 2.6 mg/dl (1.6-2.3)
[2024-12-28 10:03] LABS: Glucose - Point of Care 96 mg/dl (70-99)
[2024-12-28 10:07] LABS: B.E. -4.1 mmol/L; HCO3 20.9 mmol/L (21-28); O2 Saturation % 98.2 % (94-98); PCO2 37 mmHg (35-48); PO2 106 mmHg (83-108)
[2024-12-28 10:11] LABS: Glycohemoglobin (HgbA1c) 5.1 % (4.0-5.6)
--- NOTE | 2024-12-28 10:13 | W.PN.ID1 ---
Date of Service
Date of Service: December 28, 2024
Today's Communication
Continue antibiotics.
Assessment / Plan
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
Suspected septic emboli to the brain
Leukocytosis; likely secondary to surgery
Renal insufficiency
HTN
DM type II
Nephrolithiasis
Recommendations:
Continue ceftriaxone
Patient status post valve replacement
Repeat blood cultures pending.
Awaiting records from OSH
Check ESR and CRP in AM.
Chief Complaint
-: Other (Strep mutans endocarditis)
Subjective / Review of Systems
Patient seen and examined. He is status post aortic valve replacement. Remains intubated at this time.
Vital Signs / Physical Exam
Vital Signs
Vital Signs
Temp Pulse Resp BP Pulse Ox
98.0 F 63 18 120/65 99
12/28/24 10:00 12/28/24 10:00 12/28/24 10:00 12/28/24 10:00 12/28/24 10:00
Physical Exam
Constitutional: Comfortable, Acutely Ill and Non-toxic
Eyes: No Conjunctival Hemorrhage and Sclera Anicteric
Oropharyngeal: Other (ET tube in place.)
Cardiovascular: Regular Rate and S1/S2; Negative S3/S4
Pulmonary: Coarse and Other (On vent)
Gastrointestinal: Soft, Non Tender and Non Distended
Neurological: Awake and Alert
Psychological: Calm
Objective Data
Lab Data
Lab Results
12/28/24 10:00
PT 16.8 Sec (11.4-14.6) H 12/28/24 03:11
INR 1.33 12/28/24 03:11
APTT 34.6 Sec (23.4-35.0) 12/27/24 22:46
Estimated Creat Clear 34 ml/min 12/28/24 07:19
Lactic Acid 0.9 mmol/L (0.7-2.0) 12/28/24 03:11
Total Bilirubin 0.5 mg/dl (0.2-1.3) 12/28/24 07:19
AST 54 U/L (17-59) 12/28/24 07:19
ALT 22 U/L (0-50) 12/28/24 07:19
Alkaline Phosphatase 66 U/L (38-126) 12/28/24 07:19
Most recent labs reviewed.
Micro Results:
12/27/24 05:31 MRSA Screen - Final
Nose No Methicillin Resistant Staphylococcus aureus isolated.
12/27/24 17:14 Fungal Culture - Preliminary
Heart Culture in progress.
Positive cultures are reported as soon as detected.
Final report to follow in four to five weeks.
12/27/24 17:06 Fungal Culture - Preliminary
Heart Culture in progress.
Positive cultures are reported as soon as detected.
Final report to follow in four to five weeks.
12/27/24 17:06 Tissue Culture - Pending
Heart Gram Stain - Pending
12/27/24 17:14 Tissue Culture - Pending
Heart Gram Stain - Pending
12/27/24 17:14 Anaerobic Culture - Pending
Heart
12/27/24 17:06 Anaerobic Culture - Pending
Heart
12/27/24 15:00 Urine Culture - Pending
Urine
12/27/24 12:38 Blood Culture - Pending
Blood/Venous
12/27/24 11:47 Blood Culture - Pending
Blood/Venous
Imaging:
12/25/2024 MRI brain (performed at [facility]): Multiple cortical and subcortical foci of diminished signal intensity on susceptibility weighted sequences. The sequence suggest the presence of blood products. Concern raised for septic
emboli which can demonstrate ischemic changes resulting in restriction diffusion, as well as hemorrhagic damage to the brain. Multiple small embolic infarcts also in the differential. Contrast enhanced examination failed to demonstrate enhancing
lesions or venous filling defects or prominent venous structures thus leptomeningeal carcinomatosis or venous congestion is not consistent with this study. Linear appearing areas of non-FLAIR suppression and diminished signal on susceptibility
weighted sequences suggest associated possible subarachnoid hemorrhage within the bilateral occipital lobes. Please see full dictation for additional detail.
12/22/2024 ECHO (TTE): LV EF = 60%. Mildly dilated left atrium. Severe thickening of the anterior and posterior leaflets of the mitral valve, but without clear vegetations. Moderate sized (0.4 x 0.7 cm oscillating heterogeneous echodensity
attached to the noncoronary cusp. Aortic valve is thickened and calcified with mild to moderate eccentric aortic regurgitation.
Care Review
Plan reviewed with: Physician (CT Surgery)
[2024-12-28 10:29] LABS: Blood Urea Nitrogen 71 mg/dl (9-20); Calcium 8.2 mg/dl (8.4-10.2); Carbon Dioxide 22 mmol/L (22-30); Chloride 108 mmol/L (98-107); Estimated Creatinine Clearance 33 ml/min; Glucose 89 mg/dl (70-99); Potassium 5.8 mmol/L (3.5-5.1); Sodium 137 mmol/L (135-145); eGFR 26.65
[2024-12-28 11:03] LABS: Glucose - Point of Care 83 mg/dl (70-99)
[2024-12-28] MEDS: DEXTROSE 50% SYRINGE 25 GRAMS IV (11:06)
[2024-12-28] MEDS: NSS 250 IV (11:06)
--- NOTE | 2024-12-28 11:06 | PTCARENOTE ---
Pt drowsy but awakens easily. Triggering more breaths over the vent. RT notified and at bedside to place pt on cpap trial. Pt tolerating. 98%.
[2024-12-28] MEDS: CALCIUM GLUCONATE 1000 MG IV (11:07)
[2024-12-28] MEDS: NOVOLIN R 10 UNITS IV (11:38)
[2024-12-28 11:39] LABS: Glucose - Point of Care 86 mg/dl (70-99)
--- NOTE | 2024-12-28 11:45 | PTCARENOTE ---
Dextrose, insulin and calciuim gluconate given at the same time to treat K 5.8.
[2024-12-28 12:05] LABS: B.E. -4.9 mmol/L; HCO3 20.6 mmol/L (21-28); O2 Saturation % 98.5 % (94-98); PCO2 39 mmHg (35-48); PO2 82 mmHg (83-108)
--- NOTE | 2024-12-28 12:07 | W.PN.UPDATE ---
Addendum entered and electronically signed by James Chavarria DO 12/28/24 12:10:
Edited: I will provide ethacrynic acid as patient has documented anaphylactic reaction to sulfa
Original Note:
Update Note
Progress Note Update
Will provide 20 mg IV Lasix to help facilitate urinary potassium loss
--- NOTE | 2024-12-28 12:25 | PTCARENOTE ---
Per order, RT at bedside to extubate patient. Pt extubated to 6L NC, tolerated but POX 88-89%. Titrated to midflow 10L. POX 92-93%. Pt able to state name and , that hes in the hospital for heart condition and the year is 2024. Pt able to do IS up
to 750mL. Encouraged CDB.
[2024-12-28] MEDS: EDECRIN 50 MG IV (12:41)
[2024-12-28] MEDS: SODIUM BICARBONATE 50 MEQ IV (12:41)
[2024-12-28 12:52] LABS: Glucose - Point of Care 119 mg/dl (70-99)
--- NOTE | 2024-12-28 13:00 | PTCARENOTE ---
Pt reassessed. Remains drowsy but oriented x4. ACEVES with equal strength throughout. SR with 1st degree AVB on tele with rates in the 60s-70s. BP supported with levophed. +Click +Rub. No pacing noted. POX 93% on 10L midflow. CT output WNL. Junior
draining clear yellow urine CT PA and nephrology aware of UO. All lines remain intact. Insulin infusing per Critical care glycemic protocol.
[2024-12-28 13:44] LABS: B.E. -3.3 mmol/L; HCO3 22.7 mmol/L (21-28); O2 Saturation % 96.9 % (94-98); PCO2 44 mmHg (35-48); PO2 77 mmHg (83-108)
[2024-12-28 13:59] LABS: Glucose - Point of Care 87 mg/dl (70-99)
[2024-12-28] MEDS: OFIRMEV 100 IV (14:01)
[2024-12-28 14:05] LABS: Potassium 4.8 mmol/L (3.5-5.1)
--- NOTE | 2024-12-28 15:05 | PTCARENOTE ---
Addendum entered by Trang Peralta RN 12/28/24 19:19:
right facial droop/tongue deviation.
Original Note:
Hourly checks completed. Pt with expressive aphasia stating 'turn off the cheese box' instead of the television. Reoriented patient asking if he wanted the television off, he said yes, and then continued calling several other items the television
instead of the correct name. Blood sugar checked, 83. CT PA notified, stroke alert and rapid response called. NIH 5. Aphasia, dysarthria, and Right sided facial droop. Dr. Romo at bedside. Pt taken to cat scan stat. Pt stable during transport. Upon
arrival back to CVICU, pt's and father in law at bedside to be updated by Dr. Romo. Keppra given as per orders.
[2024-12-28 15:10] LABS: Glucose - Point of Care 83 mg/dl (70-99)
--- NOTE | 2024-12-28 15:31 | CON.NEURO ---
Neuro Assessment/Plan
Assessment
Acute onset of aphasia in patient with known endocarditis and septic emboli
Plan
due to left frontal questionable hemorrhagic changes, start Levetiracetam 1000 mg load, then 500 mg Q12 hours
Would anticoagulate as per protocol unless there is an increase in size of the left frontal suggestion of hemorrhage by rechecking CT of the head 6 hours after the initial test
Would use aspirin instead of anticoagulation if MRI of brain performed at the outside hospital was suggestive of ischemic stroke due to risk of hemorrhagic conversion
Obtain records from [facility] especially MRI of brain results
Check EEG
Consider repeated CT of head not only [address] of head but again in a.m. if patient remains symptomatic
Unable to obtain MRI of brain due to recent cardiothoracic surgery
Total Critical Care Time=�40 minutes.
The neurological system is affected and the action required by me to prevent further deterioration or potential was control over the item listed first in the Impressions and Recommendations section of this note.
I was present and personally examined the patient.� I discussed patient care with other professional health care providers.
Also discussed with family.
Will follow
Consultation
Order
Date of Consultation: 12/28/24
Requesting Provider: CT Surgery
Reason for Consult: Speech change
Subjective/Objective
Subjective Data
Date of Service: December 28, 2024
Patient presented to this hospital after transfer from an outside hospital ([facility]) for needed curative heart valve replacement. The patient began experiencing increased stress after losing his job approximately 2 months prior to new
onset of symptomatology leading to depression and failure to thrive as well as decreased appetite. The patient then developed a sense of unsteadiness prompting presentation to the outside hospital. At that time, patient was found to have anemia
and thrombocytopenia with acute renal failure. 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 Patient was also discovered to have septic emboli to the brain and spleen without
hemorrhagic conversion.
As per medical records: He underwent extensive work-up of anemia by Hematology, which was notable for elevated lupus anticoagulant of 44 (normal <40), possible restricted M spike on protein electrophoresis, IgM kappa monoclonal band present on serum
immunofixation, jzju-cwmikn-cltbsyrz DNA titer of 1.1 (normal <1.1), free kappa light chains of 154, free lambda chains of 125, PT 15.8, normal fibrinogen.
The patient successfully underwent aortic valve replacement and is postop day 1. While in bed, the patient began experiencing repetitive speech, word finding issues which he did not experience previously. No other associated symptoms. Stroke
alert was initiated. No known modifying factors. The patient himself believes that his speech is unaffected.
Objective Data
Vital Signs
Temp Pulse Resp BP Pulse Ox
36.0 C L 68 13 120/63 98
12/28/24 14:00 12/28/24 14:00 12/28/24 14:00 12/28/24 14:00 12/28/24 14:00
Lab Results
12/28/24 10:00
12/28/24 13:33
PT 16.8 Sec (11.4-14.6) H 12/28/24 03:11
INR 1.33 12/28/24 03:11
APTT 34.6 Sec (23.4-35.0) 12/27/24 22:46
Sodium 137 mmol/L (135-145) 12/28/24 09:58
Potassium 4.8 mmol/L (3.5-5.1) 12/28/24 13:33
BUN 71 mg/dl (9-20) H 12/28/24 09:58
Glucose 89 mg/dl (70-99) 12/28/24 09:58
Calcium 8.2 mg/dl (8.4-10.2) L 12/28/24 09:58
Phosphorus 7.3 mg/dl (2.5-4.5) H 12/28/24 07:19
Patient Allergies
Sulfa (Sulfonamide Antibiotics) Allergy (Verified 12/26/24 21:26)
Anaphylaxis
sulfite Allergy (Verified 12/26/24 21:26)
Anaphylaxis
CVA Assessment
Onset of Stroke Symptoms
Onset of symptoms known: Yes
Date of onset of symptoms: 12/28/24
Time of onset of symptoms: 15:05
Time pt last seen normal is known: Yes
Date last time pt seen normal: 12/28/24
Time last time pt seen normal: 15:05
NIH Stroke Score
Level of Consciousness: 0 - Alert
LOC Questions: 1-Answers one correctly
LOC Commands: 1-Performs one correctly
Best Horizontal Gaze: 0-Normal
Visual Pryor: 0=Normal, no visual loss
Facial Palsy: 0=Normal, symmetrical
Motor - Right Arm: 0=No drift 10 seconds
Motor - Left Arm: 0=No drift 10 seconds
Motor - Right Le-No drift 5 seconds
Motor - Left Le-No drift 5 seconds
Limb Ataxia: 0-Absent
Sensation: 0-Normal
Best Language: 0-No aphasia
Dysarthria: 0-Normal
Extinction and Inattention: 0-No abnormality
NIH Total Score:: 2
Tenecteplase Contraindications
Inclusion and Exclusion criteria reviewed: Yes
Reasons for NON-Tx with Thrombolytics ABSOLUTE Exclusions: Evidence of intracranial hemorrhage on pre-treatment CT head (Questionable in the left frontal lobe)
Reasons for NON-Tx with Thrombolytics POSSIBLE Exclusions: Major surgery or serious trauma within proceding 14 days
IAT Contraindications: NIHSS < 6
Review of Systems
-
History Source: Patient
All other systems: Reviewed and negative
EENT: Negative Blurry Vision or Swallowing Difficulty
Respiratory: Negative Trouble Breathing
Cardiac: Negative Chest Pain
Musculoskeletal: Negative Back Pain or Neck Pain
Neuro: Negative Dizzy or Headache
Physical Exam
-
General: No Apparent Distress and Appears Stated Age
Eyes: OU Absent Papilledema, Round OU, [place] Conjunctivae and No Ptosis
HEENT: Anicteric and Moist Mucous Membranes
Neck: Full Range of Motion
Respiratory: No Dyspnea
Cardiac: No JVD
GI: Non-distended
Skin: Unremarkable
Extremities: No Clubbing, No Cyanosis and No Edema
Psych: Intact Judgement/Insight
Extended Neurological Exam
Mood & Affect: Anxious
Attention Span & Concentration: Awake, Alert, Interactive and Mild Difficulty with 2 Step Request
Memory: Able to Recall (Location, month) and Reduced (For the correct year)
Tremor: Hand Tremor Absent and Head Tremor Absent
Speech: Quality Unremarkable, Mildly Reduced Output and Other (Irregular difficulty with phrase repetition, no word replacement)
Cranial Nerve II: Left Eye: Pupillary Reactivity Unremarkable, Pupillary Size Unremarkable and Visual Pryor Intact
Cranial Nerve II: Right Eye: Pupillary Reactivity Unremarkable, Pupillary Size Unremarkable and Visual Pryor Intact
Cranial Nerves III, IV, : Extraocular Movement: Extraocular Movement Full in all Directions
Cranial Nerve VII: Facial Symmetry: Normal Facial Symmetry
Cranial Nerve VIII: Hearing: Unremarkable Hearing to Normal Conversational Volume
Cranial Nerves IX, X: Palate Movement: Palate Elevation Symmetric
Cranial Nerve XI: Shoulder Shrug: Unremarkable
Cranial Nerve XII: Tongue Protusion: Midline
Muscle Strength, Overall: Full Throughout
Muscle Bulk & Tone: Bulk Unremarkable and Tone Unremarkable
Pronator Drift: No Drift in Upper Extremities
Deep Tendon Reflexes: Unremarkable Throughout
Touch Sensation: Unremarkable
Coordination: Ygnuss-tojp-lfdzkt Testing Unremarkable
Babinski Sign: Absent Bilaterally
Gait & Station: Unable to Assess
Data Reviewed
-
CT Head: Report Reviewed and Image Reviewed
Labs: Report Reviewed
Reviewed with: Physician, Nurse, Physician Scout Executive, Patient and Family
Old Records: Summarized
Medications
-
Active Medications
Generic Name Dose Route Start Last Admin
Trade Name Freq PRN Reason Stop Dose Admin
Acetaminophen 650 mg 12/27/24 20:04
Acetaminophen 325 Mg Tablet PO 01/24/25 20:03
Q4HPRN PRN
mild pain,headache,temp >101F
Acetaminophen 650 mg 12/27/24 20:04
Acetaminophen 650 Mg Rectal Suppository RECTAL 01/24/25 20:03
Q4HPRN PRN
mild pain,headache,temp >101F
Acetaminophen 1,000 mg 12/27/24 22:00 12/28/24 13:08
Acetaminophen 500 Mg Tablet PO 01/24/25 21:59 Not Given
TID@0600,1400,2200 VANESSA
Amiodarone HCl 200 mg 12/27/24 20:04 12/28/24 08:42
Amiodarone 200 Mg Tablet PO 01/24/25 20:03 Not Given
TID VANESSA
Aspirin 300 mg 12/28/24 08:00
Aspirin 300 Mg Rectal Suppository RECTAL 01/25/25 07:59
DAILYPRN PRN
pt not taking PO aspirin
Aspirin 81 mg 12/28/24 08:00 12/28/24 08:42
Aspirin 81 Mg Chewable Tablet PO 01/25/25 07:59 Not Given
DAILY VANESSA
Bisacodyl 10 mg 12/27/24 20:04
Bisacodyl 10 Mg Rectal Suppository RECTAL 01/24/25 20:03
DAILYPRN PRN
constipation
Calcium Chloride 500 mg 12/27/24 20:04
Calcium Chloride 10% (100 Mg/Ml) 1 Gram Syringe IV 01/24/25 20:03
PRN PRN
SBP < 70 mmHg
Ceftriaxone Sodium 2,000 mg 12/27/24 21:00 12/28/24 08:46
Ceftriaxone 2,000 Mg/20 Ml Vial IV 2,000 mg
Q12H VANESSA Administration
Cyclobenzaprine HCl 5 mg 12/27/24 20:04
Cyclobenzaprine 10 Mg Tablet PO 01/24/25 20:03
Q8HPRN PRN
muscle spasm
Dextrose 12.5 grams 12/27/24 20:04
Dextrose 50% (0.5 Grams/Ml) 50 Ml Syringe IV 01/24/25 20:03
[id number] PRN
Blood Glucose < 70
Gabapentin 100 mg 12/27/24 20:04 12/28/24 08:42
Gabapentin 100 Mg Capsule PO 01/24/25 20:03 Not Given
TID VANESSA
Hydromorphone HCl 0.5 mg 12/27/24 20:04 12/28/24 04:55
Hydromorphone 0.5 Mg/0.5 Ml Syringe IV 12/30/24 20:03 0.5 mg
Q3HPRN PRN Administration
severe pain
Hydromorphone HCl 0.25 mg 12/27/24 20:04
Hydromorphone 0.25 Mg/0.5 Ml Syringe IV 01/10/25 20:03
Q3HPRN PRN
moderate pain
Sodium Chloride 500 mls @ 10 mls/hr 12/27/24 20:04 12/27/24 22:45
Nss IV 01/24/25 14:49 500 mls
CORDIS VANESSA Administration
Cefazolin Sodium 1 gram in 5 mls @ 60 mls/hr 12/28/24 02:00 12/28/24 10:08
Ancef IV 12/28/24 18:04 5 mls
Q8H VANESSA Administration
Calcium Gluconate 2 gram in 100 mls @ 100 mls/hr 12/27/24 20:04 12/28/24 04:13
Calcium Gluconate IV 01/24/25 20:03 100 mls
PRN PRN Administration
ionized Calcium < 1.18 mmol/L
Magnesium Sulfate 2 gram in 50 mls @ 25 mls/hr 12/27/24 20:04
Magnesium Sulfate IV 01/24/25 20:03
PRN PRN
magnesium < or = 2 mg/dL
Norepinephrine Bitartrate 4 mg in 250 mls @ 0 mls/hr 12/27/24 20:04 12/28/24 10:08
Levophed IV 250 mls
PER PROTOCOL VANESSA Administration
Protocol
Per Protocol
Nicardipine/Sodium Chloride 40 mg in 200 mls @ 0 mls/hr 12/27/24 20:04
Cardene IV
PER PROTOCOL VANESSA
Protocol
Per Protocol
Insulin Human Regular 100 units in 100 mls @ 0 mls/hr 12/27/24 20:04
Novolin R Insulin Infusion IV
PER PROTOCOL VANESSA
Protocol
Per Protocol
Dexmedetomidine HCl 400 mcg in 100 mls @ 0 mls/hr 12/28/24 00:45 12/28/24 03:49
Precedex IV 100 mls
PER PROTOCOL VANESSA Administration
Protocol
Per Protocol
Insulin Aspart 0 units 12/27/24 20:04 12/28/24 10:29
Insulin Aspart (Novolog) 100 Units/Ml 3 Ml Flexpen SC 01/24/25 20:03 Not Given
AC VANESSA
Protocol
Lactated Ringer's 250 ml 12/27/24 20:04
Lactated Ringers 1,000 Ml Bag IV 01/24/25 15:01
[id number] PRN
Hypovolemia
Magnesium Hydroxide 30 ml 12/27/24 20:04
Milk Of Magnesia 30 Ml Cup PO 01/24/25 20:03
BIDPRN PRN
if no BM in three days
Meperidine HCl 12.5 mg 12/27/24 20:04
Meperidine 25 Mg/Ml Injection IV
[id number] PRN
shivering
Metoprolol Tartrate 12.5 mg 12/28/24 08:00 12/28/24 08:41
Metoprolol 12.5 Mg Regular Release Dose (1/2 Of 25 Mg Tablet) PO 01/25/25 07:59 Not Given
Q12 VANESSA
Mupirocin 0 applic 12/27/24 20:04 12/28/24 08:45
Mupirocin 2% (Ointment) 22 Gram Tube NASAL 12/31/24 08:01 1 applic
Q12 VANESSA Administration
Ondansetron HCl 4 mg 12/27/24 20:04
Ondansetron 4 Mg/2 Ml Vial IV 01/24/25 20:03
Q8HPRN PRN
nausea/vomiting
Oxycodone HCl 5 mg 12/27/24 20:04
Oxycodone 5 Mg Regular Release Tablet PO 01/10/25 20:03
Q4HPRN PRN
moderate pain
Oxycodone HCl 2.5 mg 12/27/24 20:04
Oxycodone 5 Mg Regular Release Tablet PO 01/10/25 20:03
Q4HPRN PRN
mild pain
Pantoprazole Sodium 40 mg 12/28/24 08:00 12/28/24 08:42
Pantoprazole 40 Mg Delayed Release Tablet PO 01/25/25 07:59 Not Given
DAILY VANESSA
Senna/Docusate Sodium 1 tablet 12/27/24 20:04 12/28/24 08:42
Docusate W/Senna ([place]izett-Colace) Tablet PO 01/24/25 20:03 Not Given
Q12 VANESSA
Sodium Chloride 0 flush 12/27/24 21:00
Sodium Chloride 0.9% (Flush) Syringe IV 01/24/25 20:59
PER PROTOCOL VANESSA
Sodium Chloride 0 flush 12/27/24 20:59 12/28/24 08:45
0.9% Nacl Flush If Lactated Ringers Ivf Ordered IV 01/24/25 20:58 1 flush
QID@0859,0901,2059,210 VANESSA Administration
Sterile Water 20 ml 12/27/24 23:45 12/28/24 08:46
Sterile Water For Injection 20 Ml Vial IV 01/24/25 23:44 20 ml
BID@0900,2100 VANESSA Administration
Home Medications
�Medication �Instructions �Recorded
acetaminophen 325 mg tablet 650 mg PO Q6H PRN anemia 12/26/24
alprazolam 0.5 mg tablet 0.5 mg PO DAILY Mental 12/26/24
Health/Anxiety
amlodipine 5 mg tablet 5 mg PO BID Blood Pressure 12/26/24
ascorbic acid (vitamin C) 500 mg PO BID Supplement 12/26/24
carvedilol 25 mg tablet 25 mg PO BID Blood Pressure 12/26/24
ceftriaxone 2 gram intravenous 2 g IV DAILY Infection 12/26/24
solution
clonidine HCl 0.1 mg tablet 0.1 mg PO Q6HPRN PRN HTN SBP>160 12/26/24
ergocalciferol (vitamin D2) 1,250 1,250 mcg PO QWEEK Supplement 12/26/24
mcg (50,000 unit) capsule
ferrous gluconate 324 mg (38 mg 324 mg PO DAILY Supplement 12/26/24
iron) tablet
fluoxetine 40 mg capsule 40 mg PO DAILY Mental 12/26/24
Health/Anxiety
folic acid 1 mg tablet 1 mg PO DAILY Supplement 12/26/24
heparin (porcine) 5,000 unit/mL 5,000 unit SC Q8H Blood Clot 12/26/24
injection solution Prevention/Tx
mirtazapine 15 mg disintegrating 15 mg PO HS Mental Health/Anxiety 12/26/24
tablet
morphine 15 mg immediate release 15 mg PO Q6H PRN Moderate Pain 12/26/24
tablet (4-6)
multivitamin with folic acid 400 1 tab PO DAILY Supplement 12/26/24
mcg tablet
pantoprazole 40 mg tablet,delayed 40 mg PO DAILY Gastrointestinal 12/26/24
release Issue
polyethylene glycol 3350 17 gram 17 g PO DAILY Gastrointestinal 12/26/24
oral powder packet Issue
thiamine mononitrate (vit B1) 100 100 mg PO BID Supplement 12/26/24
mg tablet
zolpidem 12.5 mg tablet,extended 12.5 mg PO HS Sleep 12/26/24
release,multiphase
Past History
Past History
ED Past Medical History: HTN, Renal failure (Acute), Psychiatric (Major depression) and Other (endocarditis with septic emboli to brain and spleen, nephrolithiasis)
--- NOTE | 2024-12-28 16:00 | PTCARENOTE ---
Addendum entered by Trang Peralta RN 12/28/24 19:19:
right facial droop/tongue deviation
Original Note:
Pt reassessed upon arrival to CVICU. Pt drowsy. Oriented to self, place. Able to state birthday. Unable to state correct year or why he is in the hospital. PERRLA 3mm brisk. Right sided facial droop. B/l arm strength equal. b/l feet strength equal
for plantar flexion, unable to do dorsiflextion. Dr. Romo at bedside and aware. No visual deficits noted. No visual field cuts. Mild disarthria. SR with 1st degree AVB on tele with rates in the 70s. BP 110s/50-60s. Levophed titrated off. MAP
maintained >65. Bilateral radial and DP pulses palpable. Generalized +1 edema. POX 91% on 6L, titrated to 8L midflow POX 94%. CT continue to drain serosanguinous fluid. No air leaks, tidaling, crepitus. Junior draining adequate amounts of clear
yellow urine. Sternal incision covered with Aquacel-CDI. All lines remain intact. Insulin gtt infusing per glycemic protocol. Pt's at bedside.
[2024-12-28 16:02] LABS: Glucose - Point of Care 95 mg/dl (70-99)
[2024-12-28] MEDS: KEPPRA 1000 MG IV (16:15)
--- NOTE | 2024-12-28 17:15 | PTCARENOTE ---
Addendum entered by Trang Peralta RN 12/28/24 17:42:
CT PA notified of low temp requiring armida hugger.
Original Note:
CT PA notified of increased CT output from Med CTs. Labs ordered, drawn and sent.
--- NOTE | 2024-12-28 17:30 | PTCARENOTE ---
Pt's request call after evening CT scan by neurologist. Dr. Romo notified of request and given 's name and phone number via TT.
[2024-12-28 17:44] LABS: Hematocrit 22.9 % (39.0-52.0); Hemoglobin 8.0 g/dL (13.0-18.0); Mean Corp Hgb Conc. 34.9 g/dL (33.0-37.0); Mean Corpuscular Volume 83.0 fL (80.0-94.0); Platelet Count 96 10^3/uL (130-400); Red Cell Dist. Width 17.8 % (11.5-14.5)
[2024-12-28 17:49] LABS: INR 1.32; PT 16.7 Sec (11.4-14.6)
[2024-12-28 17:50] LABS: APTT 34.3 Sec (23.4-35.0)
[2024-12-28 17:54] LABS: ALT (SGPT) 14 U/L (0-50); AST (SGOT) 42 U/L (17-59); Albumin 2.0 g/dl (3.5-5.0); Alkaline Phosphatase 60 U/L (38-126); Blood Urea Nitrogen 70 mg/dl (9-20); Calcium 8.2 mg/dl (8.4-10.2); Carbon Dioxide 21 mmol/L (22-30); Chloride 107 mmol/L (98-107); Estimated Creatinine Clearance 31 ml/min; Glucose 92 mg/dl (70-99); Potassium 4.9 mmol/L (3.5-5.1); Sodium 136 mmol/L (135-145); Total Protein 4.7 g/dl (6.3-8.2); eGFR 25.55
[2024-12-28 18:02] LABS: Glucose - Point of Care 101 mg/dl (70-99)
[2024-12-28 18:08] LABS: B.E. -4.8 mmol/L; HCO3 21.1 mmol/L (21-28); O2 Saturation % 99.6 % (94-98); PCO2 42 mmHg (35-48); PO2 110 mmHg (83-108)
--- NOTE | 2024-12-28 20:00 | PTCARENOTE ---
assumed care of pt from previous RN. pt drowsy, responds to verbal stimuli. pt oriented to person and place, not oriented to time or situation. expressive aphasia noted. PERRLA, 3mm, brisk. see neuro/NIHSS flowsheet for details. SR w/ 1st degree AVB
on tele-monitor. temp epicardial A/V wires w/ backup settings 50/15/1. POX 97% on [address] x4 (mediastinal x2, R & L pleural) to -20cm wall suction, draining sanguineous drainage. abd s/n, hypoactive BS. pt tolerating sips of water and PO
meds. cortes catheter draining clear, yellow urine. all surgical sites stable, CDI. R IJ cordis w/ SLIC. L radial a-line. all lines leveled, zeroed, flushed. RUE SL PICC intact. PIV intact. see worklist for complete nursing assessment,
interventions, gtt titrations, VS, and I&Os.
[2024-12-28 20:25] LABS: Glucose - Point of Care 89 mg/dl (70-99)
[2024-12-28] MEDS: NSS 500 IV (20:25)
[2024-12-28] MEDS: KEPPRA 500 MG IV (20:25)
[2024-12-28] MEDS: TYLENOL 1000 MG PO (20:25)
[2024-12-28] MEDS: FLEXERIL 5 MG PO (20:59)
[2024-12-28] MEDS: ROXICODONE 5 MG PO (22:19)
--- NOTE | 2024-12-28 22:19 | W.PN.UPDATE ---
Update Note
Progress Note Update
Follow up on Mr. Kwan's CT head this evening shows a stable left frontal lobe hemorrhage compared to his earlier study. However, now there is a concern of a new area of subarachnoid hemorrhage in the left parietal lobe. He was noted to get an
IV contrast dye load for the CT head/neck and perfusion. His neuro exam is unchanged, arguably displaying improving dysarthria from my exam earlier this evening, and he denies any headache, photophobia, or neck stiffness. Findings were discussed
with Dr. Romo who is in agreement that the new findings may be related to the dye load from earlier. For now we will plan to continue close neurological monitoring and repeat a CT head tomorrow morning or earlier if there are any changes to his
neuro exam.
[2024-12-28 22:40] LABS: Glucose - Point of Care 104 mg/dl (70-99)
[2024-12-28 23:54] LABS: Glucose - Point of Care 109 mg/dl (70-99)
[2024-12-29] VITALS (25 sets, daily range): BP systolic 98–142; BP diastolic 68–100; BMI 24.3
--- NOTE | 2024-12-29 | PTCARENOTE ---
no acute changes. VSS. SR w/ 1st degree AVB on tele-monitor. U/O <0.5ml/kg/h- CT TOWER ERECTOR aware. CT drainage WNL. see stroke neuro flowsheet for details.
[2024-12-29 01:06] LABS: Glucose - Point of Care 107 mg/dl (70-99)
[2024-12-29 02:08] LABS: Glucose - Point of Care 103 mg/dl (70-99)
[2024-12-29] MEDS: ROXICODONE 5 MG PO ×3 (02:09→21:31)
[2024-12-29 03:02] LABS: Glucose - Point of Care 102 mg/dl (70-99)
[2024-12-29 03:45] LABS: INR 1.40; PT 17.4 Sec (11.4-14.6)
[2024-12-29 03:46] LABS: Hematocrit 23.9 % (39.0-52.0); Hemoglobin 8.3 g/dL (13.0-18.0); Mean Corp Hgb Conc. 34.7 g/dL (33.0-37.0); Mean Corpuscular Volume 83.9 fL (80.0-94.0); Platelet Count 129 10^3/uL (130-400); Red Cell Dist. Width 17.9 % (11.5-14.5)
--- NOTE | 2024-12-29 04:00 | PTCARENOTE ---
no acute changes. VSS. AM labs collected and sent. CT drainage WNL. see stroke neuro flowsheet for details.
[2024-12-29 04:01] LABS: Blood Urea Nitrogen 70 mg/dl (9-20); Calcium 8.4 mg/dl (8.4-10.2); Carbon Dioxide 20 mmol/L (22-30); Chloride 105 mmol/L (98-107); Estimated Creatinine Clearance 29 ml/min; Glucose 97 mg/dl (70-99); Magnesium 2.3 mg/dl (1.6-2.3); Potassium 5.1 mmol/L (3.5-5.1); Sodium 134 mmol/L (135-145); eGFR 23.59
[2024-12-29] MEDS: DILAUDID 0.25 MG IV ×3 (04:04→20:39)
[2024-12-29 04:05] LABS: C-Reactive Protein 48.80 mg/L (0.0-10.00)
[2024-12-29 05:04] LABS: Glucose - Point of Care 101 mg/dl (70-99)
[2024-12-29] MEDS: TYLENOL 1000 MG PO (05:05)
--- NOTE | 2024-12-29 05:34 | W.PN.CT ---
Addendum entered and electronically signed by Kranthi Denney MD 12/29/24 07:03:
I saw and examined the patient.
The PA's note was reviewed and I agree with the note.
Comment:
POD#2 s/p emergent AVR (#23 On-X), septal myomectomy/vegectomy, isolated tertiary chordae resection, drainage of B/L pleural effusions
N: Stroke alert yesterday secondary to aphasia and dysarthria. Initial CTH w/ no evidence of acute infarct, but with minimal attenuation peripherally in left frontal lobe sulcus/gyrus potentially concerning for tiny focus of acute SAH. Neurology
recommended Keppra 1000mg load and 500 q12 w/ serial CTH and EEG. CTH overnight w/ new tiny focus of L parietal lobe SAH. CTH this AM w/ new SAH over inferolateral margin of right frontal lobe, sulci medial to right frontal lobe, anterior left
frontal lobe, medial to right parietal-occipital lobe, and posterior to the left parietal lobe which appears unchanged. EXAM: GCS 14, answers correctly initially, 4+/5 x 4, no facial group, visual ramirez intact, NIH 1 - greatly appreciate
neurology input.
CV: OFF levophed. 68 sinus. 129/62. CVP 7. 96% - will hold on heparin/coumadin for now given neurologic issues, but will need to institue anticoagulation when deemed OK by neurology/neurosurgery
P: 8L NC, 96%, no effusions. Slightly increase RML consolidation
GI: Cleared for diet
: UO: 360/785 cc in 12/24 hrs, Creat 3.1 (from 2.7)
HEME: Hgb 8.3, PLT: 129 - Check CBC at noon - transfuse 1U PRBC
ID: Continue ABX per ID - will require dental for ? small dental abscess on panelipse
ENDO: Insulin gtt - transition today
FEN: K 5.1
PROPH: SCDs
DISPO: ICU, full code
Original Note:
Today's Communication / Plan
-
POD #2
no significant events since stroke alert
Neuro:
-stroke alert 12/28 for aphasia and dysarthria, CTH showing small L frontal bleed. repeat CTH showing CT dye, repeat CTH this AM
-serial neurochecks
-appreciate neuro recs, possibly starting AC soon
Card:
-NSR, 1st degree block on EKG
-Levophed off this AM ~ 0500, hold BB, amio
-cont. ASA
-ScvO2 from cordis: 67.3%, calculated JACOBY CO/CI 5.8/3 respectively on 12/28
-CT 2M 245/510, L/R pleural 165/340 out in 12/24 hrs
-PW: A+V, some inappropriate A pacing refractory to lowering A-wire mA, now on VVI, no pacing needed
-Kenny hugger to avoid hypothermia
Pulm:
-extubated 1230 12/28
-on midflow 8 L
-IS
Bruno//FEN:
-UOP 360/785 cc in 12/24 hrs
-renal following, appreciate recs for etiology ddx sepsis/infectious immune complex GN/embolic
-keep cortes
GI:
-check LFTs tomorrow, lactate
Endo:
-insulin gtt
Heme:
-transfuse for goal Hgb ~8, platelet >100 if bleeding, judiciously transfuse 2/2 hypoxia
ID:
-appreciate ID recs, ceftriaxone 2g q12 hr, follow repeat BC for clearance
Assessment / Plan
-
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
and debridement, c/b post op bleeding from CT and re-exploration/venous bleeding and oozing from the sternum on 12/27/24 POD #[address] Denney
Post-AMANDA: Normal biventricular function w/ LVEF 65%, well-seated AVR w/ mean gradient 11mmHg, normal washing jets. MV w/ MILD-to-mod regurgitation w/ improvement in preoperative RHONDA.
EKG 12/27/24 NSR 1st degree AVB
Radiology: CT [place]: Sm L pleural effusion, mod ascities, mod splenomegaly hypodense lesion upper pole of spleen concern for splenic infarct. MRI: 12/23/24 Multiple cortical and subcortical foci concern for septic emboli which can demonstrate
ischemic changes with restricted diffusion as well as hemorrhagic damage to the brain. Linear areas of non flair suppression and diminished signal suggest possible subarachnoid hemorrhage
Echo 12/22/24 EF 60-65, mild LVH, mildly dilated LA, severe thickening of anterior and posterior mitral leaflets,mild-mod MR, mod sized 0.4 x 0/7 oscillating heterogeneous echodensity attahced to noncoronary cusp, mild-mod AR, PG 23.5/MG 13.1, small
pericardial effusion
Assessment:
Strep Mutans AV endocarditis
Acute hypoxic respiratory failure
Strep Mutans bacteremia
moderate AI
moderate MR with RHONDA
metastatic septic emboli to the brain, spleen
oliguric CORNELIO
coagulopathy
transfusion dependent anemia
thrombocytopenia
unintentional weight loss
dental cap dislodgement
hx anxiety/depression
hx HTN
Subjective
Procedure
s/p AVR (25 mm On-X) s/p explant and redo AVR (23mm On-x), LVOT vegetation debridement, MV chordae vegetation debridement on 12/27/[address] Denney
-
Date of Service: December 29, 2024
Objective Data
-
Lab Results
12/29/24 03:08
12/29/24 03:08
PT 17.4 Sec (11.4-14.6) H 12/29/24 03:08
INR 1.40 12/29/24 03:08
APTT 34.3 Sec (23.4-35.0) 12/28/24 17:33
Vital Signs
Vital Signs
Temp Pulse Resp BP Pulse Ox
97.6 F 73 16 105/71 97
12/29/24 05:00 12/29/24 05:15 12/29/24 05:15 12/29/24 05:00 12/29/24 05:15
CT Intake/Output/Weight
12/28/24 12/28/24 12/29/24
06:59 18:59 06:59
Intake Total 728.6 / 1040.3 930.4 / 1244.2 313.8 / 1244.2
Output Total 712 / 1162 865 / 1635 770 / 1635
Balance 16.6 / -121.7 65.4 / -390.8 -456.2 / -390.8
SaO2: 97
Physical Exam
-
General: Awake and Other (still with aphasia, dysarthia improving )
Cardiovascular: Regular rate & rhythm, No Murmurs and No Rub
Respiratory: Clear, Equal and Decreased Breath Sounds
Sternum: Stable
Incision: Clean, Dry and Intact
Extremities: Edema +1 and No Erythema
Data Reviewed
-
Lab Results: Results Reviewed
Medications: Active Meds Reviewed
Chest X-Ray: Report Reviewed
ECG: Report Reviewed
[2024-12-29 07:15] LABS: Glucose - Point of Care 97 mg/dl (70-99)
--- NOTE | 2024-12-29 07:26 | PTCARENOTE ---
1 unit PRBCs ordered and currently infusing without issue. will continue to monitor
[2024-12-29] MEDS: PROTONIX 40 MG PO (07:27)
[2024-12-29] MEDS: FLEXERIL 5 MG PO ×2 (07:28→15:15)
[2024-12-29] MEDS: LOW STRENGTH ASPIRIN 81 MG PO (07:28)
[2024-12-29] MEDS: KEPPRA 500 MG IV ×2 (07:29→20:38)
[2024-12-29] MEDS: SENOKOT-S 1 TABLET PO (07:29)
[2024-12-29] MEDS: BACTROBAN 2% OINTMENT 1 APPLIC NASAL ×2 (07:30→20:38)
[2024-12-29] MEDS: LOPRESSOR 12.5 MG PO ×2 (07:31→20:38)
[2024-12-29] MEDS: FLUSH (NSS) 1 FLUSH IV (07:32)
--- NOTE | 2024-12-29 08:00 | PTCARENOTE ---
resumed care of pt from previous RN. AAOx2. expressive aphasia noted. got year wrong but does know name and birthday. Says he is in [place], requires frequent reminders to stop picking at IVs and lines and o2 tubing. SR w/ 1st degree AVB on
monitor. A/V wires present and set to backup rate 50/15/1. 97% on 6L NC. CT x4 to -20cm wall suction. no airleak/crepitus. poor appetite. tolerates water and able to take pills. cortes draining clear, yellow urine. all surgical sites stable. insulin
per glycemic protocol. will continue to monitor.
[2024-12-29 08:28] LABS: B.E. - POC -3.9 mmol/L; Glucose - POC 125 mg/dl (70-99); HCO3 - POC 21 mmol/L (21-28); Hematocrit - POC 18 % PCV (42-52); Hemodilution- POC No; Hemoglobin Calculated - POC 6.0; Ionized Calcium - POC 1.20 mmol/L (1.15-1.33); Lactate - POC < 0.30 mmol/L (0.36-0.75); O2 Saturation %Calculated-POC 99.9 % (94-98); PCO2 - POC 37 mmHg (35-48); PO2 - POC 292 mmHg (83-108); POC Comment PRE; Potassium - POC 4.3 mmol/L (3.5-5.1); Sodium - POC 134 mmol/L (136-145); Specimen Type - POC Arterial; pH - POC 7.37 (7.35-7.45)
--- NOTE | 2024-12-29 08:38 | W.PN.UPDATE ---
Update Note
Progress Note Update
Patient with abnormal Panelipse on 12/27/24 with concern for oral abscess, s/p mechanical AVR due to endocarditis. Consult placed for Oral/Maxillofacial Surgery, Dr. Moseley notified. Panelipse reviewed, suspected not an abscess and chronic granuloma
per Dr. Moseley. Plan to follow-up as outpatient with Oral/Maxillofacial Sx.
[2024-12-29] MEDS: FLUSH (NSS) IV (09:12)
[2024-12-29] MEDS: XANAX 0.5 MG PO (09:17)
[2024-12-29] MEDS: PROZAC 40 MG PO (09:17)
[2024-12-29] MEDS: STERILE WATER FOR INJECTION 20 ML IV ×2 (09:19→21:15)
[2024-12-29] MEDS: ROCEPHIN 2000 MG IV ×2 (09:24→21:15)
[2024-12-29] MEDS: NSS IV (09:26)
[2024-12-29 09:27] LABS: Glucose - Point of Care 90 mg/dl (70-99)
--- NOTE | 2024-12-29 10:57 | W.PN.ID1 ---
Date of Service
Date of Service: December 29, 2024
Today's Communication
Continue ceftriaxone.
Assessment / Plan
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
Suspected septic emboli to the brain
Subarachnoid hemorrhage
Leukocytosis; likely secondary to surgery
Renal insufficiency
Elevated ESR, CRP
HTN
DM type II
Nephrolithiasis
Recommendations:
Continue ceftriaxone 2 g IV every 12 hours
Patient status post valve replacement
Repeat blood cultures pending.
Still awaiting records from OSH
Check ESR and CRP in AM.
Chief Complaint
-: Other (Strep mutans endocarditis)
Subjective / Review of Systems
Patient seen and examined. Now off vent.
Vital Signs / Physical Exam
Vital Signs
Vital Signs
Temp Pulse Resp BP Pulse Ox
96 F L 69 18 104/73 93
12/29/24 10:09 12/29/24 10:09 12/29/24 10:00 12/29/24 10:00 12/29/24 10:09
Physical Exam
Constitutional: Comfortable, Acutely Ill and Non-toxic
Eyes: No Conjunctival Hemorrhage and Sclera Anicteric
Cardiovascular: Regular Rate, S1/S2, Murmur and Other (Drains remain in place); Negative S3/S4
Pulmonary: Coarse
Gastrointestinal: Soft, Non Tender and Non Distended
Neurological: Awake
Psychological: Calm
Objective Data
Lab Data
Lab Results
12/29/24 03:08
12/29/24 03:08
ESR 58 mm/hour (0-20) H 12/29/24 03:08
PT 17.4 Sec (11.4-14.6) H 12/29/24 03:08
INR 1.40 12/29/24 03:08
APTT 34.3 Sec (23.4-35.0) 12/28/24 17:33
Estimated Creat Clear 29 ml/min 12/29/24 03:08
Lactic Acid 0.9 mmol/L (0.7-2.0) 12/28/24 03:11
Total Bilirubin 0.5 mg/dl (0.2-1.3) 12/28/24 17:33
AST 42 U/L (17-59) 12/28/24 17:33
ALT 14 U/L (0-50) 12/28/24 17:33
Alkaline Phosphatase 60 U/L (38-126) 12/28/24 17:33
C-Reactive Protein 48.80 mg/L (0.0-10.00) H 12/29/24 03:08
Most recent labs reviewed.
Micro Results:
12/27/24 12:38 Blood Culture - Preliminary
Blood/Venous No Growth in 24 hours- Final report to follow
12/27/24 11:47 Blood Culture - Preliminary
Blood/Venous No Growth in 24 hours- Final report to follow
12/27/24 17:14 Tissue Culture - Pending
Heart Gram Stain - Preliminary
12/27/24 17:06 Tissue Culture - Pending
Heart Gram Stain - Preliminary
12/27/24 15:00 Urine Culture - Final
Urine NO GROWTH
12/27/24 05:31 MRSA Screen - Final
Nose No Methicillin Resistant Staphylococcus aureus isolated.
12/27/24 17:14 Fungal Culture - Preliminary
Heart Culture in progress.
Positive cultures are reported as soon as detected.
Final report to follow in four to five weeks.
12/27/24 17:06 Fungal Culture - Preliminary
Heart Culture in progress.
Positive cultures are reported as soon as detected.
Final report to follow in four to five weeks.
12/27/24 17:14 Anaerobic Culture - Pending
Heart
12/27/24 17:06 Anaerobic Culture - Pending
Heart
Imaging:
12/29/2024 CT head without contrast: 'MULTIFOCAL ACUTE SUBARACHNOID HEMORRHAGE with a new small subarachnoid hemorrhage over the inferolateral margin of the right frontal lobe. Small acute subarachnoid hemorrhages in the sulci medial to the right
frontal lobe, anterior to the left frontal lobe, medial to the right parietal-occipital lobe, and posterior to the left parietal lobe which appear unchanged. Hemorrhagic septic emboli is a diagnostic consideration given the history of endocarditis.'
12/25/2024 MRI brain (performed at [facility]): Multiple cortical and subcortical foci of diminished signal intensity on susceptibility weighted sequences. The sequence suggest the presence of blood products. Concern raised for septic
emboli which can demonstrate ischemic changes resulting in restriction diffusion, as well as hemorrhagic damage to the brain. Multiple small embolic infarcts also in the differential. Contrast enhanced examination failed to demonstrate enhancing
lesions or venous filling defects or prominent venous structures thus leptomeningeal carcinomatosis or venous congestion is not consistent with this study. Linear appearing areas of non-FLAIR suppression and diminished signal on susceptibility
weighted sequences suggest associated possible subarachnoid hemorrhage within the bilateral occipital lobes. Please see full dictation for additional detail.
12/22/2024 ECHO (TTE): LV EF = 60%. Mildly dilated left atrium. Severe thickening of the anterior and posterior leaflets of the mitral valve, but without clear vegetations. Moderate sized (0.4 x 0.7 cm oscillating heterogeneous echodensity
attached to the noncoronary cusp. Aortic valve is thickened and calcified with mild to moderate eccentric aortic regurgitation.
Care Review
Plan reviewed with: Other Provider (CT Surgery Extenders)
--- NOTE | 2024-12-29 11:35 | W.PN.NEPH.PH ---
Today's Communication / Plan
-
follow labs
no IVF as pt able to drink
Assessment/Plan
-
Impression:
CORNELIO
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
bleeding and re-exploration/venous bleeding and oozing from the sternum on 12/27/24
VDRF post op
Hyperkalemia
Septic brain emboli
Splenic infarct
Strep mutans bacteremia
Anemia
Thrombocytopenia
Anxiety/depression
History of obstructive uropathy due to nephrolithiasis with double-J stent
Plan:
Creatinine at 3.1 (2.6 on presentation)
Hyperkalemia better and UOP non oliguric with cortes
need to monitor labs specially post contrast exposure on 12/28
OCRNELIO prior to surgery is presumed to be secondary to infectious endocarditis with possible infectious immune complex GN but could also be atheroembolic, c3 low
Previous serological workup was reviewed from [facility]
UA notes: 4+ blood and 4+ albumin, check urine eosinophil
monitor mild met acidosis
Maintain cortes
hemodynamically stable
wt is up and on 4lit of O2 , ok for diuresis if needed(Ethacrynic acid)
follow h/h, prn trasnfusion
no acute Hd indication yet
new events noted-SAH, off AC
high risk encounter
-
-
Date of Service: December 29, 2024
CC / HPI / ROS
-
Chief Complaint:
CORNELIO
History of Present Illness:
creatinine up at 3.1, non oliguric with cortes
s/p AVR for IE on 12/27
Hemodynamically stable
no fever, exp aphasia, stroke alert last evening and has CTA head and neck, new SAH noted and off AC
Review of Systems:
extubated 12/28
on 4lit of O2
Chest tube
awake and confused
Labs
-
Labs:
eGFR 23.59 12/29/24 03:08
Phosphorus 8.6 mg/dl (2.5-4.5) H 12/29/24 03:08
Albumin 2.0 g/dl (3.5-5.0) L 12/28/24 17:33
Physical Exam
-
Vital Signs:
Vital Signs
Temp Pulse Resp BP Pulse Ox
96 F L 68 14 114/70 98
12/29/24 10:09 12/29/24 11:15 12/29/24 11:15 12/29/24 11:00 12/29/24 11:15
Cardiovascular:: Regular rate and rhythm
Respiratory:: Bilateral: Coarse
Lung Excursion:: Normal
Abdomen:: Nontender and Soft
Bowel Sounds:: Decreased
Extremity Edema:: None: Bilateral: (trace)
Cortes Catheter: Yes
Other Findings::
GEN: awake and interactive one word
chest tube
[2024-12-29 11:45] LABS: Glucose - Point of Care 90 mg/dl (70-99)
[2024-12-29 12:01] LABS: Hematocrit 25.5 % (39.0-52.0); Hemoglobin 8.7 g/dL (13.0-18.0); Mean Corp Hgb Conc. 34.1 g/dL (33.0-37.0); Mean Corpuscular Volume 83.6 fL (80.0-94.0); Platelet Count 123 10^3/uL (130-400); Red Cell Dist. Width 17.8 % (11.5-14.5)
--- NOTE | 2024-12-29 12:30 | PTCARENOTE ---
PT oriented to self, knows Birthday, confused on the year; SR on monitor w/ temp pacer VVI ; 6L NC decreased throughout 1000 IS; GI wnl; cortes cath in place draining clear yellow urine; all surgical sights CDI; RIJC R PICC all intact wnl; see
worklist for detailed assessment
--- NOTE | 2024-12-29 12:55 | PN.CDI ---
CDI
- -
CDI:
Physician Documentation Request
Admit Date: 12/26/24 19:43
Dear Doctor Олег,
Please review the following and provide your response in the progress notes.
Clinical Indicators:
Pt admitted with Aortic valve endocarditis s/p AVR 12/27
Documented per H&P,'# AnemiaInitial hemoglobin 6. Received 2 units blood transfusion Recheck CBCcontinue ferrous gluconate ....'
Documented per operative report , ' Anemia (starting Hgb/Hct in OR 6.018)...TRANSFUSIONS.... 4U PRBC, 2pk PLT, 2U FFP....'
CT surgery note 12/29, ' HEME: Hgb 8.3, PLT: 129 - Check CBC at noon - transfuse 1U PRBC...'
Based on the above, could you clarify, in your progress note, which of the following is the most likely type of anemia you are evaluating, monitoring and/or treating?
Acute blood loss anemia
Acute Blood loss Anemia on Chronic Anemia ( please specify type if known)
Other Anemia ( please specify)
Use of terms such as suspected, likely, concern for, or probable (associated with a specific diagnosis that is being evaluated, monitored, or treated as if it exists) are acceptable and can be coded in the inpatient setting, when documented at the
time of discharge.
Thank you,
Mecca Cates RN
CDI Specialist
[place] Text
Please use your independent medical judgment in providing your response.
--- NOTE | 2024-12-29 13:03 | W.PN.UPDATE ---
Update Note
Progress Note Update
CARDIAC SURGERY ATTENDING:
DENTAL UPDATE:
I was informed by my team that Dr. Moseley (the covering physician from oral/maxillofacial surgery) reviewed the panelipse from 12/27/2024 and stated that he was not concerned for oral abscess.
I subsequently personally spoke with Dr. Moseley and informed him that I would appreciate a formal dental evaluation beyond review of the panelipse including examination. I explained that this patient's bacteremia/endocarditis had resulted from
streptococcus mutans and that our radiologist had expressed concern for a potential small dental abscess. I also explained that the patient had a prosthetic valve in place and discussed the potential profound implications should this patient
develop early prosthetic valve endocarditis from an untreated source.
Dr. Moseley was steadfast in his opinion that only future outpatient dental evaluation was required. I strongly disagree with this opinion and will attempt to arrange for alternate inpatient dental evaluation.
NEUROLOGY:
I also spoke with Dr. Akilah Hernandez from neurology regarding the timing of instituting anticoagulation for the patient's mechanical AVR. Given the hemorrhagic conversion of his cerebral emboli, initial anticoagulation will always be associated
with unpredictable risk. After our discussions, I will plan for repeat CT head on this coming Sunday with institution of heparin following this assuming no significant change is noted.
Thank you,
Kranthi Denney M.D.
[phone]
[2024-12-29] MEDS: OFIRMEV 100 IV (13:13)
--- NOTE | 2024-12-29 13:13 | W.PN.CD ---
Today's Communication / Plan
-
Continue routine postop care
We will follow along
Impression / Plan
-
49-year-old man with no previous cardiac history who presents with unintentional weight loss since October found to have aortic valve endocarditis complicated by septic emboli to the brain and spleen, s/p AoV replacement and extensive debridement with
Dr. Denney on 12/27/24.
Aortic valve endocarditis:
-s/p AVR (25 mm On-X) s/p explant and redo AVR (23mm On-x), LVOT vegetation debridement, MV chordae vegetation resection and debridement c/b post op bleeding and re-exploration/venous bleeding and oozing from the sternum on 12/27/[address] Denney
-post-op AMANDA: normal LVEF, AoV with mean grad 11 mmHg, mil/mod MR
-Cultures growing strep mutans.
-Associated with anemia, thrombocytopenia, CORNELIO, splenic infarct, and enboli to brain with concern for bilat occipital subarachnoid hemorrhage
-IV antibiotics
-Continue routine post-operative care per CT surgery
-Repeat TTE prior to discharge to establish new baseline
CORNELIO:
-Nephrology following
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
HTN:
-Stable on meds
Splenic infarct:
-in setting of endocarditis
Thrombocytopenia/anemia:
-in setting of endocarditis
-required PRBC
Physical Exam
Vital Signs/Labs
Vital Signs
Temp Pulse Resp BP Pulse Ox
96 F L 69 21 112/100 93
12/29/24 10:09 12/29/24 13:00 12/29/24 13:00 12/29/24 13:00 12/29/24 13:00
12/28/24 12/29/24 12/30/24
06:59 06:59 06:59
Actual Weight 164 lb 3.91 oz 169 lb 1.513 oz
12/29/24 11:39
PT 17.4 Sec (11.4-14.6) H 12/29/24 03:08
INR 1.40 12/29/24 03:08
APTT 34.3 Sec (23.4-35.0) 12/28/24 17:33
Magnesium 2.3 mg/dl (1.6-2.3) 12/29/24 03:08
Physical Exam
Constitutional: No acute distress
Cardiovascular: Rhythm & rate is regular, Pedal edema is absent and S1S2 is normal
Respiratory: Respiratory effort normal
Data Reviewed
-
Date of Service: December 29, 2024
Medical Decision Making: Reviewed Test Results, Independent Historian Assessment, Test Interpretation and Review of Case with other Provider
EKG: Tracing Personally Visualized and interpreted
Echo: Report Reviewed by me
Labs: Labs Reviewed by me
--- NOTE | 2024-12-29 13:34 | W.PN.INTV ---
Today's Communication / Plan
Recommendations
Continue to wean down FiO2-significantly improved. 92% on room air.
Daily chest x-ray
Follow chest tube output
Follow neurological status
Serial imaging-eventually to restart anticoagulation
Continue to follow renal function
Postoperative care
Assessment
-
Assessment: 49-year-old male with a past medical history of depression, hypertension, insomnia and kidney stones who presented from outside hospital due to endocarditis. He presented to [facility] on 01/07 due to generalized weakness with failure to
thrive and unintentional weight loss with 30 pounds since October 2024. He lost his job 2 months ago and has been increasingly more depressed. He was found to be anemic, thrombocytopenic with acute kidney injury and elevated proBNP. Imaging showed
small left-sided pleural effusion with moderate ascites, splenomegaly with a splenic infarct and multiple nonobstructing renal calculi with diffuse subcutaneous edema. He was found to have septic emboli to the brain with bilateral cortical and
subcortical cerebral involvement. He was transfused 2 units PRBCs and then an echocardiogram was performed showing aortic valve endocarditis with moderate AI. He was transferred [facility] to [facility] for cardiothoracic intervention. On
further review of his echocardiogram he has significant mobile vegetations on his aortic valve with associated moderate AI with a large mobile LVOT vegetation attached to his septum. Due to this, urgent surgical intervention was warranted and the
patient was recommended for surgery and consented on 12/27. Patient brought to the CV OR on the evening of 12/27 and underwent aortic valve resection with annular debridement, limited septal myomectomy with removal of LVOT vegetations, resection of 1
mitral valve tertiary chordae with vegetation, initially had a 25 mm aortic valve replacement which was subsequently explanted and redo AVR was performed with a mechanical 23 mm AVR. Patient transferred to the CVICU postoperatively and distribution collection operator
services consulted for additional management/recommendations.
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
Impression:
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
of 1 MV tertiary chordae with vegetation, AVR initially with 25 mm with difficulty obtaining intra annular positioning s/p explantation and redo mechanical AVR with 23 mm (POD#1)
#Septic emboli with bilateral cortical and subcortical cerebral involvement, spleen involvement + CORNELIO
# Hemorrhagic conversion of cerebral septic emboli
#Anemia + thrombocytopenia
#Leukocytosis
#CORNELIO
#Depression
#Insomnia
#Kidney stones
Plan:
-
Postoperative day #2
Patient was extubated (12/28), -oxygenation improved. During my examination he was on room air and 92% at rest. Initially on 10 L.
Continue to wean down supplemental O2 flow rate while maintaining SpO2 >90-94%
Chest x-ray 12/29/2024: Persistent asymmetric bilateral infiltrates. Right greater than left.
Asymmetric infiltrates may be? Pulmonary edema/infection/septic emboli.
prn nebulized bronchodilators - not currently bronchospastic
Encourage incentive spirometer use q1hr while awake
-
Continue analgesia.
-
Hemodynamics improved.
-Off Levophed.
-
Small subarachnoid hemorrhage-hemorrhagic conversion of septic emboli.
Anticoagulation on hold.
Neurology following patient.
Serial brain imaging.
Continue antibiotics as per ID � currently on ceftriaxone until cultures clear
Neurology also following due to septic emboli to IT PROGRAMMER ANALYST and he is currently on Keppra hemorrhagic conversion. Anticoagulation on hold.-
Continue neurological checks + NIHSS q shift
-
Nephrology following due to CORNELIO; trend sCr and UOP; renally dose all meds/Abx
Encourage oral intake.
No further IV fluids.
Monitor chest tube output (bilateral pleural chest tubes + mediastinal chest tubes x 2) no airleak
Output decreasing
Chest x-ray without sick 2024 without significant pleural effusion.
Per primary team.
-
Monitor hemoglobin
Monitor platelet count and coags
Transfuse blood products as needed to maintain Hb>7g/dL, plt>50k (given post-operative status)
Monitor blood sugar to maintain euglycemia with goal BG 110-140
Insulin drip per protocol
Aspiration precautions
DVT prophylaxis
Early nutrition
Early mobilization
Mining Engineer services will continue to follow along while patient remains in the CVICU.
Will continue to follow briefly.
Subjective Dataa
Subjective Data
Date of Service:
Date of Service: December 29, 2024
Chief Complaint: Mining Engineer Follow Up (Status post emergent AVR due to endocarditis)
Subjective:
No new complaints
Denies shortness of breath at rest denies headache or blurry vision
Review of Systems
Cardiopulmonary: Dyspnea, Dyspnea on Exertion and Cough (n)
Objective Data
Data Reviewed
Vital Signs / I&O / Oxygen:
Vital Signs
Temp Pulse Resp BP Pulse Ox
96 F L 69 21 112/100 93
12/29/24 10:09 12/29/24 13:00 12/29/24 13:00 12/29/24 13:00 12/29/24 13:00
Intake and Output
12/28/24 12/29/24 12/30/24
06:59 06:59 06:59
Intake Total 968.6 / 1040.3 1264.9 / 1284.9 362.2 / 362.2
Output Total 1112 / 1162 1705 / 1825 410 / 410
Balance -143.4 / -121.7 -440.1 / -540.1 -47.8 / -47.8
SaO2 [CPAP/PSV] 95
SaO2 [SIMV] 98
SaO2 93
Nasal Cannula flow liters per 4
minute
Physical Exam
General: Comfortable
HEENT: Normocephalic
Cardiovascular: S1-S2
GI: Soft
Labs/Micro/Reports
Lab Data
12/29/24 11:39
Laboratory Results
12/28/24 12/28/24 12/28/24
13:33 17:33 17:59
PT 16.7 H
INR 1.32
APTT 34.3
pH 7.32 L 7.31 L
pCO2 44 42
pO2 77 L 110 H
HCO3 22.7 21.1
O2 Delivery Level
12/29/24
03:08
PT 17.4 H
INR 1.40
APTT
pH
pCO2
pO2
HCO3
O2 Delivery Level
Microbiology
12/27/24 12:38 Blood/Venous Blood Culture - Preliminary
No Growth in 48 hours- Final report to follow
12/27/24 11:47 Blood/Venous Blood Culture - Preliminary
No Growth in 48 hours- Final report to follow
12/27/24 17:14 Heart Anaerobic Culture - Preliminary
Culture pending. Anaerobic cultures are examined after 3
days incubation. Additional information to follow.
12/27/24 17:14 Heart Tissue Culture - Preliminary
No Growth After 18-24 Hours
12/27/24 17:14 Heart Gram Stain - Preliminary
12/27/24 17:06 Heart Anaerobic Culture - Preliminary
Culture pending. Anaerobic cultures are examined after 3
days incubation. Additional information to follow.
12/27/24 17:06 Heart Tissue Culture - Preliminary
No Growth After 18-24 Hours
12/27/24 17:06 Heart Gram Stain - Preliminary
12/27/24 15:00 Urine Urine Culture - Final
NO GROWTH
12/27/24 05:31 Nose MRSA Screen - Final
No Methicillin Resistant Staphylococcus aureus isolated.
12/27/24 17:14 Heart Fungal Culture - Preliminary
Culture in progress.
Positive cultures are reported as soon as detected.
Final report to follow in four to five weeks.
12/27/24 17:06 Heart Fungal Culture - Preliminary
Culture in progress.
Positive cultures are reported as soon as detected.
Final report to follow in four to five weeks.
[2024-12-29 14:11] LABS: Glucose - Point of Care 87 mg/dl (70-99)
[2024-12-29 14:55] LABS: Blood Urea Nitrogen 72 mg/dl (9-20); Calcium 7.8 mg/dl (8.4-10.2); Carbon Dioxide 18 mmol/L (22-30); Chloride 102 mmol/L (98-107); Estimated Creatinine Clearance 30 ml/min; Glucose 75 mg/dl (70-99); Magnesium 2.2 mg/dl (1.6-2.3); Potassium 4.9 mmol/L (3.5-5.1); Sodium 131 mmol/L (135-145); eGFR 24.53
[2024-12-29] MEDS: LIDOCAINE 4% PATCH 1 PATCH TOPICAL (14:58)
[2024-12-29] MEDS: XANAX PO (15:16)
[2024-12-29] MEDS: TYLENOL PO ×2 (15:24→22:31)
[2024-12-29] MEDS: NEURONTIN 100 MG PO (16:48)
[2024-12-29 17:01] LABS: Glucose - Point of Care 86 mg/dl (70-99)
--- NOTE | 2024-12-29 17:46 | PTCARENOTE ---
no change from previous assessment; see worklist for detailed assessment
--- NOTE | 2024-12-29 18:03 | CM ---
spoke with pt iin room, he is prev indep, lives with his in a 2 story homewith no steps to enter. discharge planning needs arre uncertain at this time, awaiting PT/OT eval. pt will need IV antibx post discharge.
--- NOTE | 2024-12-29 18:50 | W.PN.OMFS ---
Today's Communication
-
No facial swelling. No gross decay, no gross periodontal disease. No evidence of infection. No interventions indicated. Follow up as an outpatient with General Dentist for evaluation of tooth #22.
Assessment / Plan
-
Post-op Day #2 s/p Mechanical AVR
No gross decay, no gross periodontal disease. No evidence of infection. No intervention required.
Subjective Data
-
Patient post-op day #2 s/p mechanical AVR
Objective Data
-
Vitals, I&O and Lab Results:
Vital Signs
Temp Pulse Resp BP Pulse Ox
97.4 F 69 21 114/76 90
12/29/24 15:57 12/29/24 18:00 12/29/24 18:00 12/29/24 18:00 12/29/24 18:00
Intake and Output
12/28/24 12/29/24 12/30/24
06:59 06:59 06:59
Intake Total 968.6 / 1040.3 1264.9 / 1284.9 423.5 / 423.5
Output Total 1112 / 1162 1705 / 1825 845 / 845
Balance -143.4 / -121.7 -440.1 / -540.1 -421.5 / -421.5
Intake:
Oral fluids 240 / 240 0 / 0 240 / 240
IV fluids (Total) 512.6 / 584.3 1114.9 / 1134.9 183.5 / 183.5
Cardene 12.5 / 12.5
Cordis 80 / 90 240 / 250 100 / 100
Insulin 9.2 / 10.4 17.9 / 17.9 3.5 / 3.5
Levo 266.5 / 307.8 315.7 / 315.7 0 / 0
NSS bolus 250 / 250
Precedex 64.4 / 73.6 51.3 / 51.3
VIP 80 / 90 240 / 250 80 / 80
IV piggybacks 216 / 216 150 / 150
Output:
Multi-Chest Tube to Single 587 / 627 890 / 970 260 / 260
Drain Output
Mediastinal x2 207 / 227 530 / 590 240 / 240
Pleural x2 380 / 400 360 / 380 20 / 20
Urine, Junior 125 / 135 815 / 855 585 / 585
Urine, Voided 400 / 400
Lab Data
12/29/24 11:39
12/29/24 11:39
Plt Count 123 10^3/uL (130-400) L 12/29/24 11:39
Microbiology
12/27/24 17:06 Fungal Culture - Preliminary
Heart Culture in progress.
Positive cultures are reported as soon as detected.
Final report to follow in four to five weeks.
12/27/24 17:14 Fungal Culture - Preliminary
Heart Culture in progress.
Positive cultures are reported as soon as detected.
Final report to follow in four to five weeks.
12/27/24 12:38 Blood Culture - Preliminary
Blood/Venous No Growth in 48 hours- Final report to follow
12/27/24 11:47 Blood Culture - Preliminary
Blood/Venous No Growth in 48 hours- Final report to follow
12/27/24 17:14 Anaerobic Culture - Preliminary
Heart Culture pending. Anaerobic cultures are examined after 3
days incubation. Additional information to follow.
12/27/24 17:14 Tissue Culture - Preliminary
Heart No Growth After 18-24 Hours
Gram Stain - Preliminary
12/27/24 17:06 Anaerobic Culture - Preliminary
Heart Culture pending. Anaerobic cultures are examined after 3
days incubation. Additional information to follow.
12/27/24 17:06 Tissue Culture - Preliminary
Heart No Growth After 18-24 Hours
Gram Stain - Preliminary
Physical Exam
-
No facial swelling.
Oral Exam: No gross decay, no gross periodontal disease. No evidence of infection. No mobile teeth. No lesions noted.
Data Reviewed
-
Diagnostic Radiology: Image personally reviewed and interpreted (Panoramic Xray demonstrates no gross decay or periodontal disease. Questionable periapical radiolucency associated with tooth #22. Possible artifact versus granuloma.)
--- NOTE | 2024-12-29 19:05 | W.PN.NEURO.1 ---
Today's Communication / Plan
-
.
Subjective/Objective
Subjective Data
Date of Service: December 29, 2024
Neurology follow-up note.
HPI: This is a 49-year-old RH man who was transferred to [facility] from [facility] on 12/26/2024 with aortic valve replacement.
According to the EMR Mr. 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 He underwent emergent AVR, septal
myomectomy/vegectomy, isolated tertiary chordae resection, drainage of B/L pleural effusions on 12/27/24.The patient developed transient aphasia and dysarthria on 12/28/2024.
CTA head and neck�no evidence of hemodynamically significant stenoses
CT head(12/28/2024) left frontal lobe SAH.
CT head(12/29/2024) multifocal acute SAH with a new small subarachnoid hemorrhage over the inferolateral margin of the right frontal lobe. Small acute subarachnoid hemorrhages in the sulci medial to the right frontal lobe, anterior to the left
frontal lobe, medial to the right parietal-occipital lobe, and posterior to the left parietal lobe which appear unchanged. Hemorrhagic septic emboli is a diagnostic consideration given the history of endocarditis.
Mr. Kwan reports of headache, change in vision, back or neck pain.
EKG:NSR, first degree of AVB. QTc Int : 500 ms.
Labs: WBCs�12.5, hemoglobin�8.7, platelets�123, ESR�58, CRP�48.8, PT�17.4, glucose�131, creatinine�3.0.
PDMP:Zolpidem Tart Er 12.5�30 tablets filled in on 12/01/2024,Alprazolam 0.5 Mg 30 tablets filled in on 11/25/2024, Buprenorphine 8 Mg 30 tablets filled in .
MAR: Alprazolam, Hydromorphone, levetiracetam, oxycodone.
PMH: Streptococcus mutans endocarditis, HTN, DLP, DM, PRETTY, MDD, opioid use disorder? nephrolithiasis
PSH: Mechanical AVR(12/27/2024)
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
All: Sulfas
ROS: Positive for weight loss
HENT: Negative for ear pain, hearing loss, tinnitus and trouble swallowing.
Eyes: Negative. Negative for photophobia, pain and visual disturbance.
Respiratory: Negative for cough, choking and shortness of breath.
Cardiovascular: Negative for chest pain, palpitations and leg swelling.
Gastrointestinal: Negative for abdominal pain and vomiting.
Endocrine: Negative. Negative for cold intolerance.
Genitourinary: Negative for dysuria, flank pain and urgency.
Musculoskeletal: Negative for back pain, gait problem, neck pain and neck stiffness.
Skin: Negative for rash.
Allergic/Immunologic: Negative. Negative for immunocompromised state.
Neurological: Negative for dizziness, tremors, seizures, speech difficulty, numbness and headaches.
Psychiatric: Positive for anxiety.
General: Well developed. In no acute distress.
Cardio: Regular rate and rhythm without murmur. Extremities are without cyanosis or edema.
Neuro:
Mental Status: Alert, oriented to person, place, year, months. Poor attention and comprehension. Follows simple requests. No hemineglect. Anxious mood.
Cranial Nerves: Pupils are equally round and reactive to light. EOMs full. Visual ramirez full to confrontation. No ptosis. No nystagmus. Face symmetric. Normal hearing AU. The palate elevated well. SCMs and traps 5/5. Tongue midline. No
dysarthria.
Motor: No pronator or leg drift
Reflexes: 2+ in upper extremities and 3+ patellar's. No clonus bilateral. Negative José Luis's bilaterally
Sensory: Limited exam due to poor attention
Coordination: No dysmetria or tremor.
Gait: deferred
Assessment and Plan:
I. Progressive multifocal SAH. Likely etiology�hemorrhagic conversion of multifocal embolic infarcts.
II. Streptococcus mutans endocarditis, s/p mechanical AVR
III. Encephalopathy (vascular, metabolic, toxic)
IV. PRETTY, opiate use disorder?
-Seizure precautions
-Avoid opioids if feasible
-Psychiatry consult
-No antiplatelets or anticoagulants
-Please check TSH, urine tox
-Brain MRI with and without pretty when feasible
-Will contact patient's family to obtain collateral history.
-SCDs/TEDs
I personally reviewed all radiology and labs along with past medical records pertinent to current medical problems. Total time spent in patient care is 60 minutes.
Thank you for allowing us to participate in the care of this patient. We will continue to follow. Please do not hesitate to contact us with any questions or concerns.
Objective Data
Vital Signs
Temp Pulse Resp BP Pulse Ox
36.3 C 69 21 114/76 90
12/29/24 15:57 12/29/24 18:00 12/29/24 18:00 12/29/24 18:00 12/29/24 18:00
Lab Results
12/29/24 11:39
12/29/24 11:39
PT 17.4 Sec (11.4-14.6) H 12/29/24 03:08
INR 1.40 12/29/24 03:08
APTT 34.3 Sec (23.4-35.0) 12/28/24 17:33
Sodium 131 mmol/L (135-145) L 12/29/24 11:39
Potassium 4.9 mmol/L (3.5-5.1) 12/29/24 11:39
BUN 72 mg/dl (9-20) H 12/29/24 11:39
Glucose 75 mg/dl (70-99) 12/29/24 11:39
Calcium 7.8 mg/dl (8.4-10.2) L 12/29/24 11:39
Phosphorus 8.6 mg/dl (2.5-4.5) H 12/29/24 03:08
Patient Allergies
Sulfa (Sulfonamide Antibiotics) Allergy (Verified 12/26/24 21:26)
Anaphylaxis
sulfite Allergy (Verified 12/26/24 21:26)
Anaphylaxis
Vital Signs and Labs
-
Vital Signs and Labs:
Vital Signs
Temp Pulse Resp BP Pulse Ox
36.3 C 69 21 114/76 90
12/29/24 15:57 12/29/24 18:00 12/29/24 18:00 12/29/24 18:00 12/29/24 18:00
Lab Results
12/29/24 11:39
12/29/24 11:39
PT 17.4 Sec (11.4-14.6) H 12/29/24 03:08
INR 1.40 12/29/24 03:08
APTT 34.3 Sec (23.4-35.0) 12/28/24 17:33
Sodium 131 mmol/L (135-145) L 12/29/24 11:39
Potassium 4.9 mmol/L (3.5-5.1) 12/29/24 11:39
BUN 72 mg/dl (9-20) H 12/29/24 11:39
Glucose 75 mg/dl (70-99) 12/29/24 11:39
Calcium 7.8 mg/dl (8.4-10.2) L 12/29/24 11:39
Phosphorus 8.6 mg/dl (2.5-4.5) H 12/29/24 03:08
Medications
-
Medications:
Generic Name Dose Route Start Last Admin
Trade Name Freq PRN Reason Stop Dose Admin
Acetaminophen 650 mg 12/27/24 20:04
Acetaminophen 325 Mg Tablet PO 01/24/25 20:03
Q4HPRN PRN
mild pain,headache,temp >101F
Acetaminophen 650 mg 12/27/24 20:04
Acetaminophen 650 Mg Rectal Suppository RECTAL 01/24/25 20:03
Q4HPRN PRN
mild pain,headache,temp >101F
Acetaminophen 1,000 mg 12/27/24 22:00 12/29/24 15:24
Acetaminophen 500 Mg Tablet PO 01/24/25 21:59 Not Given
TID@0600,1400,2200 VANESSA
Alprazolam 0.5 mg 12/29/24 09:01 12/29/24 15:16
Alprazolam 0.5 Mg Tablet PO 01/26/25 09:00 0.5 mg
Q6HPRN PRN Administration
anxiety
Amiodarone HCl 200 mg 12/27/24 20:04 12/28/24 16:47
Amiodarone 200 Mg Tablet PO 01/24/25 20:03 Not Given
On Hold: 12/28/24 16:36 TID VANESSA
Aspirin 300 mg 12/28/24 08:00
Aspirin 300 Mg Rectal Suppository RECTAL 01/25/25 07:59
DAILYPRN PRN
pt not taking PO aspirin
Aspirin 81 mg 12/28/24 08:00 12/29/24 07:28
Aspirin 81 Mg Chewable Tablet PO 01/25/25 07:59 81 mg
DAILY VANESSA Administration
Bisacodyl 10 mg 12/27/24 20:04
Bisacodyl 10 Mg Rectal Suppository RECTAL 01/24/25 20:03
DAILYPRN PRN
constipation
Calcium Chloride 500 mg 12/27/24 20:04
Calcium Chloride 10% (100 Mg/Ml) 1 Gram Syringe IV 01/24/25 20:03
PRN PRN
SBP < 70 mmHg
Ceftriaxone Sodium 2,000 mg 12/27/24 21:00 12/29/24 09:24
Ceftriaxone 2,000 Mg/20 Ml Vial IV 2,000 mg
Q12H VANESSA Administration
Cyclobenzaprine HCl 5 mg 12/27/24 20:04 12/29/24 15:15
Cyclobenzaprine 10 Mg Tablet PO 01/24/25 20:03 5 mg
Q8HPRN PRN Administration
muscle spasm
Dextrose 12.5 grams 12/27/24 20:04
Dextrose 50% (0.5 Grams/Ml) 50 Ml Syringe IV 01/24/25 20:03
[id number] PRN
Blood Glucose < 70
Fluoxetine HCl 40 mg 12/29/24 10:00 12/29/24 09:17
Fluoxetine 20 Mg Capsule PO 01/26/25 09:59 40 mg
DAILY VANESSA Administration
Gabapentin 100 mg 12/27/24 20:04 12/29/24 16:48
Gabapentin 100 Mg Capsule PO 01/24/25 20:03 100 mg
TID VANESSA Administration
Hydromorphone HCl 0.5 mg 12/27/24 20:04 12/28/24 04:55
Hydromorphone 0.5 Mg/0.5 Ml Syringe IV 12/30/24 20:03 0.5 mg
Q3HPRN PRN Administration
severe pain
Hydromorphone HCl 0.25 mg 12/27/24 20:04 12/29/24 14:24
Hydromorphone 0.25 Mg/0.5 Ml Syringe IV 01/10/25 20:03 0.25 mg
Q3HPRN PRN Administration
moderate pain
Sodium Chloride 500 mls @ 10 mls/hr 12/27/24 20:04 12/29/24 09:26
Nss IV 01/24/25 14:49 Not Given
CORDIS VANESSA
Calcium Gluconate 2 gram in 100 mls @ 100 mls/hr 12/27/24 20:04 12/28/24 04:13
Calcium Gluconate IV 01/24/25 20:03 100 mls
PRN PRN Administration
ionized Calcium < 1.18 mmol/L
Magnesium Sulfate 2 gram in 50 mls @ 25 mls/hr 12/27/24 20:04
Magnesium Sulfate IV 01/24/25 20:03
PRN PRN
magnesium < or = 2 mg/dL
Insulin Human Regular 100 units in 100 mls @ 0 mls/hr 12/27/24 20:04
Novolin R Insulin Infusion IV
PER PROTOCOL VANESSA
Protocol
Per Protocol
Insulin Aspart 0 units 12/27/24 20:04 12/29/24 16:52
Insulin Aspart (Novolog) 100 Units/Ml 3 Ml Flexpen SC 01/24/25 20:03 Not Given
AC VANESSA
Protocol
Levetiracetam 500 mg 12/28/24 20:00 12/29/24 07:29
Levetiracetam (100 Mg/Ml) 500 Mg/5 Ml Vial IV 01/25/25 19:59 500 mg
Q12 VANESSA Administration
Lidocaine 1 patch 12/29/24 14:15 12/29/24 14:58
Lidocaine 4% Topical Patch TOPICAL 01/26/25 14:14 1 patch
DAILY VANESSA Administration
Protocol
Magnesium Hydroxide 30 ml 12/27/24 20:04
Milk Of Magnesia 30 Ml Cup PO 01/24/25 20:03
BIDPRN PRN
if no BM in three days
Meperidine HCl 12.5 mg 12/27/24 20:04
Meperidine 25 Mg/Ml Injection IV
[id number] PRN
shivering
Metoprolol Tartrate 12.5 mg 12/28/24 08:00 12/29/24 07:31
Metoprolol 12.5 Mg Regular Release Dose (1/2 Of 25 Mg Tablet) PO 01/25/25 07:59 12.5 mg
Q12 VANESSA Administration
Mupirocin 0 applic 12/27/24 20:04 12/29/24 07:30
Mupirocin 2% (Ointment) 22 Gram Tube NASAL 12/31/24 08:01 1 applic
Q12 VANESSA Administration
Ondansetron HCl 4 mg 12/27/24 20:04
Ondansetron 4 Mg/2 Ml Vial IV 01/24/25 20:03
Q8HPRN PRN
nausea/vomiting
Oxycodone HCl 5 mg 12/27/24 20:04 12/29/24 16:48
Oxycodone 5 Mg Regular Release Tablet PO 01/10/25 20:03 5 mg
Q4HPRN PRN Administration
moderate pain
Oxycodone HCl 2.5 mg 12/27/24 20:04
Oxycodone 5 Mg Regular Release Tablet PO 01/10/25 20:03
Q4HPRN PRN
mild pain
Pantoprazole Sodium 40 mg 12/28/24 08:00 12/29/24 07:27
Pantoprazole 40 Mg Delayed Release Tablet PO 01/25/25 07:59 40 mg
DAILY VANESSA Administration
Patch Removal 0 patch 12/29/24 20:00
Remove Lidocaine Patch REMOVE 01/26/25 19:59
DAILY@2000 VANESSA
Senna/Docusate Sodium 1 tablet 12/27/24 20:04 12/29/24 07:29
Docusate W/Senna (Lizett-Colace) Tablet PO 01/24/25 20:03 1 tablet
Q12 VANESSA Administration
Sodium Chloride 0 flush 12/27/24 21:00 12/28/24 22:20
Sodium Chloride 0.9% (Flush) Syringe IV 01/24/25 20:59 1 flush
PER PROTOCOL VANESSA Administration
Sterile Water 20 ml 12/27/24 23:45 12/29/24 09:19
Sterile Water For Injection 20 Ml Vial IV 01/24/25 23:44 20 ml
BID@0900,2100 VANESSA Administration
Home Medications
-
Home Medications
alprazolam 0.5 mg tablet 0.5 mg PO DAILY Mental Health/Anxiety 12/26/24
amlodipine 5 mg tablet 5 mg PO DAILY Blood Pressure 12/26/24
fluoxetine 40 mg capsule 40 mg PO DAILY Mental Health/Anxiety 12/26/24
zolpidem 12.5 mg tablet,extended release,multiphase 12.5 mg PO HS Sleep 12/26/24
buprenorphine HCl 8 mg sublingual tablet 8 mg sublingual DAILY 12/29/24
--- NOTE | 2024-12-29 19:15 | PTCARENOTE ---
Oral surgery - Dr. Jcarlos Moseley assessed patient. No acute findings. See Dr. Moseley's note.
[2024-12-29 19:53] LABS: Glucose - Point of Care 78 mg/dl (70-99)
--- NOTE | 2024-12-29 20:24 | EEGC.RPT ---
Continuous EEG Report
Recording
Start Date of Data Reviewed: 12/29/24
Done with Video Recording: Yes
Report
TECHNICAL REMARKS:��This is a technically satisfactory eighteen channel record employing 21 disc electrodes applied according to a measured international 10-20 electrode placement system.��There were no significant technical difficulties.��The study
was done on a [employer] System.
STUDY DURATION: 26 min 37 sec
MEDICATIONS:�Keppra, gabapentin, ceftriaxone, alprazolam, hydromorphone, oxycodone.
CLINICAL HISTORY: This is a 49-year-old man with encephalopathy. �This study was requested to look for epileptiform activity.
REPORT: �At the onset of the EEG, the patient is awake. The background activity consists of 6�7 Hz, impersistent, posteriorly dominant, moderate amplitude, symmetric, and rhythmic activity.� Intermittent generalized, 2-3 Hz, 30-50 uV polymorphic
delta activity was seen.� Stepwise intermittent photic stimulation (1-31 Hz) did not induce additional abnormalities. Hyperventilation was not performed. No epileptiform activity was seen.�
�IMPRESSION: �This is an abnormal awake and drowsy EEG due to a moderate to severe generalized slowing. This finding indicates diffuse cerebral
[2024-12-29] MEDS: REMOVE LIDOCAINE PATCH 1 PATCH REMOVE (20:39)
[2024-12-29] MEDS: SENOKOT-S PO ×2 (20:39→20:45)
--- NOTE | 2024-12-29 21:00 | PTCARENOTE ---
Patient received in bed. NIH stroke score 2 - Mild Aphasia, Mild Slurring. Patient able to follow verbal commands. Patient able to move all extremities. Generalized weakness. Patient emotional and verbally aggressive at times. With
encouragement, cooperative with care. IV Dilaudid 0.25mg for pain management. O2 at 3L via NC. SpO2 94%. Four chest tubes - Mediastinal x2 and Right and Left Pleural - Intact and patent - Drainage as documented. Sinus Rhythm with First Degree
AV Block and BBC. Heart rate 60-70's. Patient with no c/o chest pain, pressure or discomfort. Click. AV Wires - A-off, VVI 50/15/1. Blood pressure 142/86 (104). Abdomen soft, nontender. Normoactive bowel sounds. No BM. No c/o nausea. No
vomiting. Junior catheter - Mellisa urine - Outputs as documented. Sternal Dressing intact. Bilateral lower extremity edema R>L. Positive, palpable pulses. Patient with no c/o back or flank pain. Assessment as documented.
[2024-12-29] MEDS: NSS 500 IV (21:20)
[2024-12-29 22:07] LABS: Glucose - Point of Care 86 mg/dl (70-99)
[2024-12-29] MEDS: NEURONTIN PO (22:31)
[2024-12-29] MEDS: DILAUDID 0.5 MG IV (22:43)
--- NOTE | 2024-12-29 23:30 | PTCARENOTE ---
Patient's [place] catheter discontinued. Right I.J. Cordis intact. Insulin gtt off. Urine sent per MD order. Roxicodone 5mg PO given for pain management. IV Dilaudid 0.5mg administered for pain management 04/24 sternal pain - Positive relief
provided. Patient given CHG bath and chest tube dressing changed. Assessment/Interventions as documented.
[2024-12-30] VITALS (24 sets, daily range): BP systolic 110–174; BP diastolic 69–93; PULSE 72; BMI 24.4
[2024-12-30] MEDS: DILAUDID 0.25 MG IV ×4 (01:59→17:55)
[2024-12-30 03:34] LABS: Hematocrit 26.1 % (39.0-52.0); Hemoglobin 9.1 g/dL (13.0-18.0); Mean Corp Hgb Conc. 34.9 g/dL (33.0-37.0); Mean Corpuscular Volume 82.6 fL (80.0-94.0); Platelet Count 131 10^3/uL (130-400); Red Cell Dist. Width 18.5 % (11.5-14.5)
--- NOTE | 2024-12-30 03:48 | W.PN.CT ---
Today's Communication / Plan
-
Plan:
-No major issues overnight. Alert and oriented x 3. Dysarthria is improving, moving all extremities appropriately and has good strength
-Head CT yesterday 12/26 showed acute postop SAH involving frontal lobe, right parietal occipital lobe and left parietal lobe
-For repeat head CT tomorrow, 12/31
-Will decide on anticoagulation pending repeat CT findings tomorrow, eventual MRI
-Panelipse from 12/27 showed suspicious lesion on the left mandibular canine concerning for possible abscess, seen by OMF yesterday and determined to be unremarkable, no intervention needed, outpt f/u
-ID following and currently on Rocephin
-Neurology following and started him on Keppra, f/u EEG results
-Transitioned off insulin gtt last night
-Tolerating regular diet
-Metabolic acidosis noted this AM, gave 1amp of bicarb
-Noted to be hypoxic on 2L of o2 per ABG this AM, oxygenation increased to 4L with O2 sats 95%, f/u cxr report
-Consider d/c of pleural chest tubes to facilitate deep breathing: R/L pleurals 60/80, 2meds 250/490
-Encourage use of IS
-OOB into chair
-PT/OT/SP consult
-Monitor hyponatremia, 131
-Monitor CORNELIO, 2.9, was 3.0 yesterday. Nephrology following
-Cont. Diuresis
Assessment / Plan
-
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
and debridement, c/b post op bleeding from CT and re-exploration/venous bleeding and oozing from the sternum on 12/27/[address] Denney, POD #3
Post-AMANDA: Normal biventricular function w/ LVEF 65%, well-seated AVR w/ mean gradient 11mmHg, normal washing jets. MV w/ MILD-to-mod regurgitation w/ improvement in preoperative RHONDA.
EKG 12/27/24 NSR 1st degree AVB
Radiology: CT [place]: Sm L pleural effusion, mod ascities, mod splenomegaly hypodense lesion upper pole of spleen concern for splenic infarct. MRI: 12/23/24 Multiple cortical and subcortical foci concern for septic emboli which can demonstrate
ischemic changes with restricted diffusion as well as hemorrhagic damage to the brain. Linear areas of non flair suppression and diminished signal suggest possible subarachnoid hemorrhage
Echo 12/22/24 EF 60-65, mild LVH, mildly dilated LA, severe thickening of anterior and posterior mitral leaflets,mild-mod MR, mod sized 0.4 x 0/7 oscillating heterogeneous echodensity attahced to noncoronary cusp, mild-mod AR, PG 23.5/MG 13.1, small
pericardial effusion
Assessment:
Strep Mutans AV endocarditis
Acute hypoxic respiratory failure
Strep Mutans bacteremia
moderate AI
moderate MR with RHONDA
metastatic septic emboli to the brain, spleen
oliguric CORNELIO on probable CKD IIIb
Renal calculi
coagulopathy
transfusion dependent anemia
thrombocytopenia
unintentional weight loss
dental cap dislodgement
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
hx anxiety/depression
hx HTN
-Acute postop blood loss Anemia on probable Anemia of Chronic CKD (transfused 3u PRBC's, 2u FFPs)
-Acute postop thrombocytopenia (transfused 2 {5pks}of plts)
-Acute postop VDRF/hypoxemia
-Acute postop atelectasis
-Acute postop hypovolemia with subsequent hypervolemia
-Acute postop SAH involving frontal lobe, right parietal occipital lobe and left parietal lobe
-Acute postop suspected Hemorrhagic septic emboli
-Acute CORNELIO on suspected CKD
-Acute postop metabolic acidosis
-Acute postop hyponatremia
-
Discussed patient care with: Cardiology, Nursing, Respiratory Therapy, Pharmacy and Care Team
Subjective
-
Date of Service: December 30, 2024
Pt c/o pleuritic chest pain, dysarthria improving
Objective Data
-
Lab Results
12/30/24 03:17
PT 17.4 Sec (11.4-14.6) H 12/29/24 03:08
INR 1.40 12/29/24 03:08
APTT 34.3 Sec (23.4-35.0) 12/28/24 17:33
Vital Signs
Vital Signs
Temp Pulse Resp BP Pulse Ox
97.8 F 70 15 125/76 92
12/30/24 03:00 12/30/24 03:15 12/30/24 03:15 12/30/24 03:00 12/30/24 03:15
CT Intake/Output/Weight
12/29/24 12/29/24 12/30/24
06:59 18:59 06:59
Intake Total 334.5 / 1284.9 423.5 / 754.3 330.8 / 754.3
Output Total 840 / 1825 845 / 1650 805 / 1650
Balance -505.5 / -540.1 -421.5 / -895.7 -474.2 / -895.7
SaO2: 95 (4L)
Physical Exam
-
General: Awake, Oriented and AOx3
Cardiovascular: Regular rate & rhythm, No Murmurs, No Rub, No Gallop and Other (crisp mechanical AVR click)
Respiratory: Decreased Breath Sounds
Sternum: Stable
Incision: Clean, Dry, Intact and Dressing Intact
Extremities: Edema +2
Data Reviewed
-
Lab Results: Results Reviewed
Medications: Active Meds Reviewed
Chest X-Ray: Report Reviewed and Image Reviewed
ECG: Report Reviewed and Image Reviewed
[2024-12-30 03:58] LABS: Blood Urea Nitrogen 73 mg/dl (9-20); Calcium 8.1 mg/dl (8.4-10.2); Carbon Dioxide 17 mmol/L (22-30); Chloride 102 mmol/L (98-107); Estimated Creatinine Clearance 31 ml/min; Glucose 83 mg/dl (70-99); Magnesium 2.2 mg/dl (1.6-2.3); Potassium 4.8 mmol/L (3.5-5.1); Sodium 131 mmol/L (135-145); eGFR 25.55
[2024-12-30 04:23] LABS: B.E. -9.7 mmol/L; O2 Saturation % 93.8 % (94-98); O2 Therapy 6 L; PCO2 32 mmHg (35-48); PO2 66 mmHg (83-108)
[2024-12-30 04:24] LABS: HCO3 15.7 mmol/L (21-28)
[2024-12-30] MEDS: SODIUM BICARBONATE 50 MEQ IV ×2 (04:45→11:23)
[2024-12-30] MEDS: ROXICODONE 5 MG PO ×4 (04:54→20:11)
[2024-12-30] MEDS: TYLENOL 1000 MG PO ×3 (04:54→20:11)
--- NOTE | 2024-12-30 05:00 | PTCARENOTE ---
ABG with iCA collected and sent by Respiratory Therapy. ABG results - Sodium Bicarbonate 50 mEq IV administered per PA order. O2 increased to 4L via NC. SpO2 96%. Patient resting in bed. Patient following verbal commands without difficulty.
Patient able to move all extremities. Teeth brushed. AM lab work collected and sent. Assessment/Interventions as documented.
--- NOTE | 2024-12-30 08:00 | PTCARENOTE ---
pt received from previous RN, oriented to self, thought year was 1994, knew he was in the hospital but couldn't name the hospital. pt states 'I am so tired, I just want to sleep'. NIH 2, completed w/ previous RN. LIVESTOCK AUCTIONEER aware of results. pt ACEVES, pupils
equal and reactive. SR w/ 1st degree AVB, BBB, prolonged QT on the monitor, HR 60-70s. A&V wires, VVI 50/15. SBP 140s. palpable radial pulses, weakly palpable DPs, verified by doppler. pt on 4LNC, 98% POX. lungs diminished, shallow breaths. CTx4, no
air leak or crepitus noted. pt abdomen s/n, pt states has poor appetite. cortes in place, clear yellow urine. sternal aquacel intact, chest tube dressing c/d/i. RIJ cordis maintained. RUE PICC, +flushes, +blood return. see worklist for VS, I&O, and
assessment.
[2024-12-30 08:33] LABS: Glucose - Point of Care 103 mg/dl (70-99)
[2024-12-30] MEDS: PROTONIX 40 MG PO (08:41)
[2024-12-30] MEDS: LOW STRENGTH ASPIRIN 81 MG PO (08:41)
[2024-12-30] MEDS: NEURONTIN 100 MG PO ×3 (08:42→20:11)
[2024-12-30] MEDS: KEPPRA 500 MG IV ×2 (08:42→20:10)
[2024-12-30] MEDS: LIDOCAINE 4% PATCH 1 PATCH TOPICAL (08:42)
[2024-12-30] MEDS: PROZAC 40 MG PO (08:42)
[2024-12-30] MEDS: ROCEPHIN 2000 MG IV ×2 (08:42→20:10)
[2024-12-30] MEDS: SENOKOT-S 1 TABLET PO ×2 (08:42→20:10)
[2024-12-30] MEDS: STERILE WATER FOR INJECTION 20 ML IV ×2 (08:42→20:10)
[2024-12-30] MEDS: LOPRESSOR 12.5 MG PO ×2 (08:42→20:11)
[2024-12-30] MEDS: BACTROBAN 2% OINTMENT 1 APPLIC NASAL ×2 (08:43→20:12)
[2024-12-30] MEDS: EDECRIN 50 MG IV ×2 (08:43→16:27)
--- NOTE | 2024-12-30 10:15 | W.PN.CD ---
Today's Communication / Plan
-
Continue routine postop care
We will follow along
Impression / Plan
-
49-year-old man with no previous cardiac history who presents with unintentional weight loss since October found to have aortic valve endocarditis complicated by septic emboli to the brain and spleen, s/p AoV replacement and extensive debridement with
Dr. Denney on 12/27/24. Course complicated by subarachnoid hemorrhage.
Aortic valve endocarditis:
-s/p AVR (25 mm On-X) s/p explant and redo AVR (23mm On-x), LVOT vegetation debridement, MV chordae vegetation resection and debridement c/b post op bleeding and re-exploration/venous bleeding and oozing from the sternum on 12/27/[address] Denney
-post-op AMANDA: normal LVEF, AoV with mean grad 11 mmHg, mil/mod MR
-Cultures growing strep mutans.
-Associated with anemia, thrombocytopenia, CORNELIO, splenic infarct, and emboli to brain with concern for bilat occipital subarachnoid hemorrhage
-IV antibiotics
-Continue routine post-operative care per CT surgery
-Repeat TTE prior to discharge to establish new baseline
CORNELIO:
-Nephrology following
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
HTN:
-Stable on meds
Splenic infarct:
-in setting of endocarditis
Thrombocytopenia/anemia:
-in setting of endocarditis
-required PRBC
Subjective: Very tired. No other complaints.
Physical Exam
Vital Signs/Labs
Vital Signs
Temp Pulse Resp BP Pulse Ox
95.9 F L 69 15 147/85 97
12/30/24 10:00 12/30/24 09:15 12/30/24 10:00 12/30/24 08:52 12/30/24 09:00
12/29/24 12/30/24 12/31/24
06:59 06:59 06:59
Actual Weight 169 lb 1.513 oz 169 lb 12.095 oz
12/30/24 03:17
PT 17.4 Sec (11.4-14.6) H 12/29/24 03:08
INR 1.40 12/29/24 03:08
APTT 34.3 Sec (23.4-35.0) 12/28/24 17:33
Magnesium 2.2 mg/dl (1.6-2.3) 12/30/24 03:17
Physical Exam
Constitutional: No acute distress
Cardiovascular: Rhythm & rate is regular, Pedal edema is absent and S1S2 is normal
Respiratory: Respiratory effort normal (chest tube present)
Data Reviewed
-
Date of Service: December 30, 2024
Medical Decision Making: Reviewed Test Results, Independent Historian Assessment, Test Interpretation and Review of Case with other Provider
EKG: Tracing Personally Visualized and interpreted
Echo: Report Reviewed by me
Labs: Labs Reviewed by me
[2024-12-30 10:49] LABS: B.E. -8.1 mmol/L; HCO3 16.7 mmol/L (21-28); O2 Saturation % 98.3 % (94-98); PCO2 31 mmHg (35-48); PO2 91 mmHg (83-108); Potassium 4.8 mMOL/L (3.5-5.1)
[2024-12-30 10:50] LABS: O2 Therapy 4L N.C
--- NOTE | 2024-12-30 11:04 | PTOTSP ---
Speech Therapy Evaluation:
Swallow:
Pt with acute risk factors of dysphagia including malnutrition with 30lb weight loss since October, intubation, AVR, multiple SAHs and septic emboli to the brain. Aspiration risk increased given compromised and tenuous respiratory status with severe
PNA. Despite this, pt presented with grossly functional oropharyngeal swallow at bedside and passed 3oz swallow screen.
Language:
Impression: Pt earned an overall score of 7.80 on the QAB, indicative of mild aphasia per parameters of this assessment. Pt demonstrated reductions in orientation (age), connected speech (reduced length and complexity of utterances, reduced speech
rate, and mildly telegraphic speech), sentence comprehension (yes/no questions), picture naming (mistake x1), and reading aloud (mistake x1). He was able to functionally communicate simple messages, however required increased formulation/processing
time. Pt observed to occasionally fixate on topics, requiring verbal redirections for participation in assessment.
Recommend:
1. Continue regular solids and thin liquids
2. Medications as best tolerated
3. Close supervision with PO intake
4. D/c oral diet if concerned for aspiration or worsening in respiratory/chest imaging
5. Strict aspiration precautions
6. EXHIBITS COORDINATOR to follow for language tx as indicated and to monitor tolerance of diet and determine if pt would benefit from instrumental assessment
--- NOTE | 2024-12-30 11:09 | PTCARENOTE ---
pt placed back to bed by PT/OT. R&L pleural CTs dc'd as ordered w/ another RN. dressing c/d/i. UA sent. blood cultures drawn by phlebotomy. Roxicodone for pain as ordered. ABG drawn by RT.
--- NOTE | 2024-12-30 11:13 | W.PN.NEPH.PH ---
Today's Communication / Plan
-
diuresis as needed
follow labs
Assessment/Plan
-
Impression:
CORNELIO
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
bleeding and re-exploration/venous bleeding and oozing from the sternum on 12/27/24
VDRF post op
Hyperkalemia
Septic brain emboli
Splenic infarct
Strep mutans bacteremia
Anemia
Thrombocytopenia
Anxiety/depression
History of obstructive uropathy due to nephrolithiasis with double-J stent
Plan:
Creatinine improving to 2.9 (2.6 on presentation) post contrast exposure on 12/28
non oliguric with cortes
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
Previous serological workup was reviewed from [facility]
UA notes: 4+ blood and 4+ albumin, neg urine eosinophil
Acidemia with met acidosis s/p 1 amp bicarb, repeat labs pending , PH improving
if persists add po bicarb
hemodynamically stable
wt is up and s/p Ethacrynic acid, ok for extra dose if needed
follow h/h, prn trasnfusion
no acute Hd indication and likely will escape
d/w nursing
-
-
Date of Service: December 30, 2024
CC / HPI / ROS
-
Chief Complaint:
CORNELIO
History of Present Illness:
creatinine down at 2.9 non oliguric with cortes
s/p AVR for IE on 12/27
Hemodynamically stable
no fever, exp aphasia, stroke alert 12/28 and has CTA head and neck, new SAH noted , remains off AC
bicarb 17, ph 7.34
hb better at 9.1 post PRBC
Review of Systems:
extubated 12/28
on 4lit of O2
Chest tube
awake and speaking , more interactive today but seem still some confusion
Labs
-
Labs:
WBC 10.9 10^3/uL (4.8-10.8) H 12/30/24 03:17
RBC 3.16 10^6/uL (4.70-6.10) L 12/30/24 03:17
Hgb 9.1 g/dL (13.0-18.0) L 12/30/24 03:17
Hct 26.1 % (39.0-52.0) L 12/30/24 03:17
Plt Count 131 10^3/uL (130-400) 12/30/24 03:17
eGFR 25.55 12/30/24 03:17
Phosphorus 8.6 mg/dl (2.5-4.5) H 12/29/24 03:08
Albumin 2.0 g/dl (3.5-5.0) L 12/28/24 17:33
Physical Exam
-
Vital Signs:
Vital Signs
Temp Pulse Resp BP Pulse Ox
95.9 F L 68 19 134/83 97
12/30/24 10:00 12/30/24 10:15 12/30/24 10:15 12/30/24 10:00 12/30/24 09:00
Cardiovascular:: Regular rate and rhythm
Respiratory:: Bilateral: Coarse (decreased)
Lung Excursion:: Normal
Abdomen:: Nontender and Soft
Bowel Sounds:: Decreased
Extremity Edema:: +1: Bilateral:
Cortes Catheter: Yes
Other Findings::
GEN: awake and interactive
chest tube
[2024-12-30] MEDS: VENTOLIN NEBULES 2.5 MG INH ×3 (11:20→19:59)
[2024-12-30] MEDS: MUCINEX 600 MG PO ×2 (11:23→20:11)
[2024-12-30] MEDS: CALCIUM GLUCONATE 100 IV (11:23)
--- NOTE | 2024-12-30 11:52 | W.PN.INTV ---
Today's Communication / Plan
Recommendations
Continue postoperative care
For CT head tomorrow to evaluate stability of brain bleed
Eventual anticoagulation
Incentive spirometry
Continue antibiotic
Chest x-ray will need to be followed to resolution
Possible discontinuation of chest tube today
Pulmonary will follow
Assessment
-
Assessment: 49-year-old male with a past medical history of depression, hypertension, insomnia and kidney stones who presented from outside hospital due to endocarditis. He presented to [facility] on 01/07 due to generalized weakness with failure to
thrive and unintentional weight loss with 30 pounds since October 2024. He lost his job 2 months ago and has been increasingly more depressed. He was found to be anemic, thrombocytopenic with acute kidney injury and elevated proBNP. Imaging showed
small left-sided pleural effusion with moderate ascites, splenomegaly with a splenic infarct and multiple nonobstructing renal calculi with diffuse subcutaneous edema. He was found to have septic emboli to the brain with bilateral cortical and
subcortical cerebral involvement. He was transfused 2 units PRBCs and then an echocardiogram was performed showing aortic valve endocarditis with moderate AI. He was transferred here to [facility] for cardiothoracic intervention. On
further review of his echocardiogram he has significant mobile vegetations on his aortic valve with associated moderate AI with a large mobile LVOT vegetation attached to his septum. Due to this, urgent surgical intervention was warranted and the
patient was recommended for surgery and consented on 12/27. Patient brought to the CV OR on the evening of 12/27 and underwent aortic valve resection with annular debridement, limited septal myomectomy with removal of LVOT vegetations, resection of 1
mitral valve tertiary chordae with vegetation, initially had a 25 mm aortic valve replacement which was subsequently explanted and redo AVR was performed with a mechanical 23 mm AVR. Patient transferred to the CVICU postoperatively and automation engineering technician
services consulted for additional management/recommendations.
Chronic conditions FOAM FABRICATOR: Depression, hypertension, insomnia, kidney stones
Impression:
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
of 1 MV tertiary chordae with vegetation, AVR initially with 25 mm with difficulty obtaining intra annular positioning s/p explantation and redo mechanical AVR with 23 mm (POD#1)
#Septic emboli with bilateral cortical and subcortical cerebral involvement, spleen involvement + CORNELIO
# Hemorrhagic conversion of cerebral septic emboli
#Anemia + thrombocytopenia
#Leukocytosis
#CORNELIO
#Depression
#Insomnia
#Kidney stones
Plan:
-
Postoperative day #3
Initially postextubation on 10 L-currently 2 to 4 L.
Repeat chest x-ray 12/30/2024: Showed persistent asymmetric infiltrate right greater than left-pneumonia/septic emboli versus asymmetric pulmonary edema.(Stable chest x-ray compared to prior)
Continue to wean down as able.
Increase activity as able
prn nebulized bronchodilators - not currently bronchospastic
Encourage incentive spirometer use q1hr while awake
-
Hemodynamics stable overnight.
-Off Levophed.
-
Small subarachnoid hemorrhage-hemorrhagic conversion of septic emboli.
Stable mental status
Anticoagulation on hold.
For CT of the head tomorrow 12/31/2024 to document stability and possibly restarting anticoagulation.
Streptococcus mutant endocarditis:
Continue antibiotics as per ID � currently on ceftriaxone until cultures clear
Continue to follow repeat blood cultures from clearance.
Neurology also following due to septic emboli to DEPUTY CLERK and he is currently on Keppra hemorrhagic conversion. Anticoagulation on hold.
Continue neurological checks + NIHSS q shift
-
Nephrology following due to CORNELIO; trend sCr and UOP; renally dose all meds/Abx
Metabolic acidosis due to kidney disease
Oral bicarbonate
Encourage oral intake.
Diurese as able
Monitor chest tube output (bilateral pleural chest tubes + mediastinal chest tubes x 2) no airleak
Minimal output.
Chest x-ray without significant pleural effusion or collection per
Per primary team. Hopeful to be discontinued
-
Monitor hemoglobin
Monitor platelet count and coags
Transfuse blood products as needed to maintain Hb>7g/dL, plt>50k (given post-operative status)
Monitor blood sugar to maintain euglycemia with goal BG 110-140
Insulin drip per protocol
Aspiration precautions
DVT prophylaxis
Early nutrition
Early mobilization
Patient has been transferred to telemetry.
Pulmonary will follow for hypoxemia briefly.
Subjective Dataa
Subjective Data
Date of Service:
Date of Service: December 30, 2024
Chief Complaint: Health Care Attorney Follow Up (Status post emergent AVR due to endocarditis)
Subjective:
No new complaints
Remains on low rate supplemental oxygen
Denies increased phlegm production
Analgesia improved
Review of Systems
Cardiopulmonary: Dyspnea (None at rest)
Objective Data
Data Reviewed
Vital Signs / I&O / Oxygen:
Vital Signs
Temp Pulse Resp BP Pulse Ox
95.9 F L 67 21 111/78 97
12/30/24 10:00 12/30/24 11:24 12/30/24 11:24 12/30/24 11:16 12/30/24 11:24
Intake and Output
12/29/24 12/30/24 12/31/24
06:59 06:59 06:59
Intake Total 1264.9 / 1284.9 784.3 / 784.3 90 / 90
Output Total 1705 / 1825 1950 / 1950 585 / 585
Balance -440.1 / -540.1 -1165.7 / -1165.7 -495 / -495
SaO2 [CPAP/PSV] 95
SaO2 [SIMV] 98
SaO2 97
Nasal Cannula flow liters per 4
minute
Physical Exam
General: Comfortable
HEENT: Normocephalic
Cardiovascular: S1-S2 and Other (Intact sternotomy)
Respiratory: Clear and Other (Chest tube without air leak. No excessive drainage.)
GI: Soft
Neurology: Awake and Alert
Skin: Warm
Labs/Micro/Reports
Lab Data
12/30/24 03:17
Laboratory Results
12/30/24 12/30/24
04:09 10:29
pH 7.30 L 7.34 L
pCO2 32 L 31 L
pO2 66 L 91
HCO3 15.7 L* 16.7 L
O2 Delivery Level 6 l 4l n.c
Microbiology
12/27/24 11:47 Blood/Venous Blood Culture - Preliminary
No Growth in 72 hours- Final report to follow
12/27/24 17:06 Heart Fungal Culture - Preliminary
Culture in progress.
Positive cultures are reported as soon as detected.
Final report to follow in four to five weeks.
12/27/24 17:14 Heart Fungal Culture - Preliminary
Culture in progress.
Positive cultures are reported as soon as detected.
Final report to follow in four to five weeks.
12/27/24 12:38 Blood/Venous Blood Culture - Preliminary
No Growth in 48 hours- Final report to follow
12/27/24 17:14 Heart Anaerobic Culture - Preliminary
Culture pending. Anaerobic cultures are examined after 3
days incubation. Additional information to follow.
12/27/24 17:14 Heart Tissue Culture - Preliminary
No Growth After 18-24 Hours
12/27/24 17:14 Heart Gram Stain - Preliminary
12/27/24 17:06 Heart Anaerobic Culture - Preliminary
Culture pending. Anaerobic cultures are examined after 3
days incubation. Additional information to follow.
12/27/24 17:06 Heart Tissue Culture - Preliminary
No Growth After 18-24 Hours
12/27/24 17:06 Heart Gram Stain - Preliminary
12/27/24 15:00 Urine Urine Culture - Final
NO GROWTH
12/27/24 05:31 Nose MRSA Screen - Final
No Methicillin Resistant Staphylococcus aureus isolated.
--- NOTE | 2024-12-30 12:49 | W.PN.ID1 ---
Date of Service
Date of Service: December 30, 2024
Today's Communication
Continue antibiotics.
Assessment / Plan
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
Suspected septic emboli to the brain
Subarachnoid hemorrhage
Leukocytosis; likely secondary to surgery
Renal insufficiency
Elevated ESR, CRP
HTN
DM type II
Nephrolithiasis
Recommendations:
Continue ceftriaxone 2 g IV every 12 hours
Patient status post valve replacement
Repeat blood cultures pending.
Records from OSH reviewed. Minimal culture data noted. Will attempt to contact microbiology department.
����������������������������������������������������������
Chief Complaint
-: Other (Strep mutans endocarditis)
Subjective / Review of Systems
Review of Systems: No Fever
Vital Signs / Physical Exam
Vital Signs
Vital Signs
Temp Pulse Resp BP Pulse Ox
95.8 F L 72 12 119/75 98
12/30/24 12:00 12/30/24 12:00 12/30/24 12:00 12/30/24 12:00 12/30/24 12:00
Physical Exam
Constitutional: Comfortable, Acutely Ill and Non-toxic
Eyes: No Conjunctival Hemorrhage and Sclera Anicteric
Cardiovascular: Regular Rate, S1/S2 and Murmur; Negative S3/S4
Pulmonary: Coarse and Non Labored
Gastrointestinal: Soft, Non Tender and Non Distended
Extremities: Negative Splinter Hemorrhage or Janeway Lesions
Skin: Negative Rash or Jaundice
Psychological: Calm
Objective Data
Lab Data
Lab Results
12/30/24 03:17
ESR 58 mm/hour (0-20) H 12/29/24 03:08
PT 17.4 Sec (11.4-14.6) H 12/29/24 03:08
INR 1.40 12/29/24 03:08
APTT 34.3 Sec (23.4-35.0) 12/28/24 17:33
Estimated Creat Clear 31 ml/min 12/30/24 03:17
Lactic Acid 0.9 mmol/L (0.7-2.0) 12/28/24 03:11
Total Bilirubin 0.5 mg/dl (0.2-1.3) 12/28/24 17:33
AST 42 U/L (17-59) 12/28/24 17:33
ALT 14 U/L (0-50) 12/28/24 17:33
Alkaline Phosphatase 60 U/L (38-126) 12/28/24 17:33
C-Reactive Protein 48.80 mg/L (0.0-10.00) H 12/29/24 03:08
Most recent labs reviewed.
Micro Results:
12/27/24 12:38 Blood Culture - Preliminary
Blood/Venous No Growth in 72 hours- Final report to follow
12/30/24 11:06 Blood Culture - Pending
Blood/Venous
12/30/24 10:20 Blood Culture - Pending
Blood/Venous
12/27/24 17:06 Tissue Culture - Preliminary
Heart No Growth After 48 Hours
Gram Stain - Preliminary
12/27/24 17:06 Anaerobic Culture - Preliminary
Heart Culture pending. Anaerobic cultures are examined after 3
days incubation. Additional information to follow.
12/27/24 17:14 Tissue Culture - Preliminary
Heart No Growth After 48 Hours
Gram Stain - Preliminary
12/27/24 17:14 Anaerobic Culture - Preliminary
Heart Culture pending. Anaerobic cultures are examined after 3
days incubation. Additional information to follow.
12/27/24 11:47 Blood Culture - Preliminary
Blood/Venous No Growth in 72 hours- Final report to follow
12/30/24 10:10 Urine Culture - Pending
Urine
12/27/24 17:06 Fungal Culture - Preliminary
Heart Culture in progress.
Positive cultures are reported as soon as detected.
Final report to follow in four to five weeks.
12/27/24 17:14 Fungal Culture - Preliminary
Heart Culture in progress.
Positive cultures are reported as soon as detected.
Final report to follow in four to five weeks.
12/27/24 15:00 Urine Culture - Final
Urine NO GROWTH
12/27/24 05:31 MRSA Screen - Final
Nose No Methicillin Resistant Staphylococcus aureus isolated.
Imaging:
12/29/2024 CT head without contrast: 'MULTIFOCAL ACUTE SUBARACHNOID HEMORRHAGE with a new small subarachnoid hemorrhage over the inferolateral margin of the right frontal lobe. Small acute subarachnoid hemorrhages in the sulci medial to the right
frontal lobe, anterior to the left frontal lobe, medial to the right parietal-occipital lobe, and posterior to the left parietal lobe which appear unchanged. Hemorrhagic septic emboli is a diagnostic consideration given the history of endocarditis.'
12/25/2024 MRI brain (performed at [facility]): Multiple cortical and subcortical foci of diminished signal intensity on susceptibility weighted sequences. The sequence suggest the presence of blood products. Concern raised for septic
emboli which can demonstrate ischemic changes resulting in restriction diffusion, as well as hemorrhagic damage to the brain. Multiple small embolic infarcts also in the differential. Contrast enhanced examination failed to demonstrate enhancing
lesions or venous filling defects or prominent venous structures thus leptomeningeal carcinomatosis or venous congestion is not consistent with this study. Linear appearing areas of non-FLAIR suppression and diminished signal on susceptibility
weighted sequences suggest associated possible subarachnoid hemorrhage within the bilateral occipital lobes. Please see full dictation for additional detail.
12/22/2024 ECHO (TTE): LV EF = 60%. Mildly dilated left atrium. Severe thickening of the anterior and posterior leaflets of the mitral valve, but without clear vegetations. Moderate sized (0.4 x 0.7 cm oscillating heterogeneous echodensity
attached to the noncoronary cusp. Aortic valve is thickened and calcified with mild to moderate eccentric aortic regurgitation.
[2024-12-30 12:54] LABS: Blood Urea Nitrogen 71 mg/dl (9-20); Calcium 8.4 mg/dl (8.4-10.2); Carbon Dioxide 19 mmol/L (22-30); Chloride 101 mmol/L (98-107); Estimated Creatinine Clearance 33 ml/min; Glucose 118 mg/dl (70-99); Potassium 4.4 mmol/L (3.5-5.1); Sodium 131 mmol/L (135-145); eGFR 26.65
--- NOTE | 2024-12-30 13:00 | PTCARENOTE ---
YESSICA Lazo dc'd as ordered, dressing c/d/i. armando worthington applied for core temp 95.8F, DOUBLE END TENONER SETTER aware.
--- NOTE | 2024-12-30 13:58 | CON.MD ---
Consultation - Medical
-
patient seen chart reviewed. this consult was done today december 30 2024. spoke with nursing. i could get no history from the patient who rarely was able to answer my questions even simple ones. he could tell me he was in the hospital but not which
hospital. he did not answer when i asked him what year it is. when i asked him if he had kids he said 'little' (he does not have kids). he repeated several times 'i'm tired...i'm tired...' nursing tells me they have been unable to engage him in any
conversation and that he told his nurse it was 1994 this am. the patient is a 49 year old male who lost his job some months ago.he has since then failed to thrive sustaining weight loss of 30 lbs, constipation, unsteady on his feet etc. i see from
the chart that neuro recommended psych see him and asked the question as to whether he has issues with opiate and bzp addiction . there is a uds on the chart which is + for bzp and opiates but it was done yesterday and he has received all of those
drugs since coming to and having surgery (tca is often a false positive). there is notation in the record that patient has been prescribed psychotropic meds (see below) the patient presented with weight loss as well as severe anemia weakness,
constipation to [facility]. . he was transferred here from [facility] having been found to have endocarditis. he has suffered septic emboli and brain hemorrhage. he did receive two transfusions at [facility]. he remains with renal failure cr is
2.6 but improved since he was at [facility] hgb is 9.[address] head shows multifoical acute subarachnoid hemorrhage MRI septic emboli and hemorrhagic changes CTA head and neck no findings to suggest stenosis
i attempted to reach wilma patient's spouse at both numbers in the chart. no answer. left message on both lines.
past medical hx patient underwent aortic valve replacement and debridement see above . hx htn nephrolithiasis splenic infarct anemia thrombodytopenia qtc 500 crp 48..8
past psych hx there is notation in the record that patient has been prescribed xanax buprenorphine prozac and zolpidem.
family hx not available
substance abuse need to ask spouse for further information
social hx lost job a few months ago need to gather further information
mse patient is lethargic. he opened his eyes with effort. he was holding up the heating blanket although said he was cold. he did not engage in meaningful conversation. it was not clear to me that he even understood the questions i asked although
they were very simple questions. repeated several time 'i'm tired' little eye contact. sometimes he would start to answer a question with one word which may or may not have been germane and then stopped abruptly. cognition seems grossly impaired.
his affect was constricted. mood was i have to say absent. he seemed more in a delirium than depressed or psychotic. insight judgment lacking
dx TME secondary to underlying medical illness. i also wondered if the patient might be aphasic. r/o depression r/o substance abuse
recommendations will try again to contact patient spouse for further information. it sounds as thought patient struggled with loss of job psychologically and eventually physical illness which certainly can exacerbate in the presence of mental
illness took its toll. i was told by nursing that dental issues may have caused the endocarditis but it seems as thought he was taking buprenorphine in the past and that suggests there may be a hx of opiate use. he also seems to have been taking
antidepressants as well as bzp for anxiety and struggling with sleep given that he was taking zolpidem. unfortunately at this moment it is my impression that his biggest issues are physical not psychiatric. i don't think what i am seeing today is
primary psychiatric illness. he could be in a delirium state. is there an aphasia present? etc etc. i am not sure he even understood my questions much less could give me answers. will see patient again in the am. would not treat with
antidepressants in any case until sodium comes up to normal.
[2024-12-30] MEDS: SODIUM BICARBONATE 650 MG PO (14:14)
--- NOTE | 2024-12-30 15:09 | CM ---
CM following for DC planning needs.
Met w/ patient's spouse, Adrienne and her mother at bedside.
Prior to admission, patient was residing w/ his spouse in a private, 2 [facility], 0 [facility]. Functionally, patient is indep. prior to admission. He, however, has lost his job, effective in October. He is no medical insurance as a result.
Spouse and her mother had concerns with medical bills for hospitalization. I have connected her w/ [facility] [place]. Emotional support provided.
DC plans will ultimately be dependent upon his insurance status. Home IV ABT or IV ABT in a facility are unlikely unless there is kayla care available or his Medical Assistance can be approved quickly.
CM will cont. to follow closely for DC planning needs.
--- NOTE | 2024-12-30 16:10 | PTCARENOTE ---
Addendum entered by Nakia Womack RN 12/30/24 16:11:
shampoo cap applied, oral hygiene performed.
Original Note:
pt VSS, pt OOB to chair w/ 2 person assist, pt did not want to get OOB, encouraged to do so. pt keeps stating he wants to get back to bed. IS encouraged, pt states 'I can refuse if I want'. and mother in law at bedside.
--- NOTE | 2024-12-30 18:03 | W.PN.NEURO.1 ---
Today's Communication / Plan
-
.
Subjective/Objective
Subjective Data
Date of Service: December 30, 2024
Neurology follow-up note.
24-hour events: Intermittently hypertensive, hypothermic.
He was started on aspirin yesterday.
MAR: Hydromorphone 0.25 mg given at 11:29, 17:55 today, oxycodone 5 mg given at 9:33 and 15:40 today.
According to [facility], the patient developed addiction to opioids, prescribed for management of recurrent renal colic which escalated following the of his father approximately 2 years ago.
The patient's reports that he has been disoriented and emotional, which is uncharacteristic of his usually rational demeanor. He has been repeating himself and expressing a desire to go home despite of his current condition.
Routine EEG (12/29/2024)�no evidence of epileptiform abnormalities.
The patient reports no headaches, change in vision.
Labs: WBCs 13.9, hemoglobin�9.1, platelets�131, sodium�131, creatinine�2.8, glucose�118.
PMH: Streptococcus mutans endocarditis, HTN, DLP, DM, PRETTY, MDD, opioid use disorder, nephrolithiasis
PSH: Mechanical AVR(12/27/2024)
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
All: Sulfas
ROS: Positive for encephalopathy
General: Well developed. In no acute distress.
Cardio: Regular rate and rhythm without murmur. Extremities are without cyanosis or edema.
Neuro:
Mental Status: Alert, oriented to self, person. Poor attention and comprehension. Perseverates on 'I am tired'. Follows simple requests. No hemineglect. Anxious mood.
Cranial Nerves: Pupils are equally round and reactive to light. EOMs full. Visual ramirez full to confrontation. No ptosis. No nystagmus. Face symmetric. Normal hearing AU. The palate elevated well. SCMs and traps 5/5. Tongue midline. No
dysarthria.
Motor: No pronator or leg drift
Sensory: Limited exam due to poor attention
Coordination: No dysmetria or tremor.
Gait: deferred
Assessment and Plan:
I. Progressive multifocal SAH. Likely etiology�hemorrhagic conversion of multifocal embolic infarcts.
II. Streptococcus mutans endocarditis, s/p mechanical AVR
III. Encephalopathy (vascular, metabolic, toxic)
IV. Opioid use DO
-Seizure precautions
-Wean off opioids if feasible
-No antiplatelets or anticoagulants
-Repeat CT head wo contrast
-Brain MRI with and without pretty when feasible
-SCDs/TEDs
I personally reviewed all radiology and labs along with past medical records pertinent to current medical problems. Total time spent in patient care is 40 minutes.
Thank you for allowing us to participate in the care of this patient. We will continue to follow. Please do not hesitate to contact us with any questions or concerns.
Objective Data
Vital Signs
Temp Pulse Resp BP Pulse Ox
36.1 C L 75 17 117/84 96
12/30/24 18:00 12/30/24 17:30 12/30/24 17:30 12/30/24 16:00 12/30/24 16:00
Lab Results
12/30/24 03:17
12/30/24 12:08
PT 17.4 Sec (11.4-14.6) H 12/29/24 03:08
INR 1.40 12/29/24 03:08
APTT 34.3 Sec (23.4-35.0) 12/28/24 17:33
Sodium 131 mmol/L (135-145) L 12/30/24 12:08
Potassium 4.4 mmol/L (3.5-5.1) 12/30/24 12:08
BUN 71 mg/dl (9-20) H 12/30/24 12:08
Glucose 118 mg/dl (70-99) H 12/30/24 12:08
Calcium 8.4 mg/dl (8.4-10.2) 12/30/24 12:08
Phosphorus 8.6 mg/dl (2.5-4.5) H 12/29/24 03:08
Ur Buprenorphine Negative (Negative) 12/29/24 21:01
Patient Allergies
Sulfa (Sulfonamide Antibiotics) Allergy (Verified 12/26/24 21:26)
Anaphylaxis
sulfite Allergy (Verified 12/26/24 21:26)
Anaphylaxis
Vital Signs and Labs
-
Vital Signs and Labs:
Vital Signs
Temp Pulse Resp BP Pulse Ox
36.1 C L 75 17 117/84 96
12/30/24 18:00 12/30/24 17:30 12/30/24 17:30 12/30/24 16:00 12/30/24 16:00
Lab Results
12/30/24 03:17
12/30/24 12:08
PT 17.4 Sec (11.4-14.6) H 12/29/24 03:08
INR 1.40 12/29/24 03:08
APTT 34.3 Sec (23.4-35.0) 12/28/24 17:33
Sodium 131 mmol/L (135-145) L 12/30/24 12:08
Potassium 4.4 mmol/L (3.5-5.1) 12/30/24 12:08
BUN 71 mg/dl (9-20) H 12/30/24 12:08
Glucose 118 mg/dl (70-99) H 12/30/24 12:08
Calcium 8.4 mg/dl (8.4-10.2) 12/30/24 12:08
Phosphorus 8.6 mg/dl (2.5-4.5) H 12/29/24 03:08
Ur Buprenorphine Negative (Negative) 12/29/24 21:01
Medications
-
Medications:
Generic Name Dose Route Start Last Admin
Trade Name Freq PRN Reason Stop Dose Admin
Acetaminophen 650 mg 12/27/24 20:04
Acetaminophen 325 Mg Tablet PO 01/24/25 20:03
Q4HPRN PRN
mild pain,headache,temp >101F
Acetaminophen 650 mg 12/27/24 20:04
Acetaminophen 650 Mg Rectal Suppository RECTAL 01/24/25 20:03
Q4HPRN PRN
mild pain,headache,temp >101F
Acetaminophen 1,000 mg 12/27/24 22:00 12/30/24 14:15
Acetaminophen 500 Mg Tablet PO 01/24/25 21:59 1,000 mg
TID@0600,1400,2200 VANESSA Administration
Albuterol Sulfate 2.5 mg 12/30/24 12:00 12/30/24 15:01
Albuterol Nebs 2.5 Mg/3 Ml Ampul INH 2.5 mg
R QID VANESSA Administration
Protocol
Alprazolam 0.5 mg 12/29/24 09:01 12/29/24 09:17
Alprazolam 0.5 Mg Tablet PO 01/26/25 09:00 0.5 mg
Q6HPRN PRN Administration
anxiety
Amiodarone HCl 200 mg 12/27/24 20:04 12/28/24 16:47
Amiodarone 200 Mg Tablet PO 01/24/25 20:03 Not Given
TID VANESSA
Aspirin 300 mg 12/28/24 08:00
Aspirin 300 Mg Rectal Suppository RECTAL 01/25/25 07:59
DAILYPRN PRN
pt not taking PO aspirin
Aspirin 81 mg 12/28/24 08:00 12/30/24 08:41
Aspirin 81 Mg Chewable Tablet PO 01/25/25 07:59 81 mg
DAILY VANESSA Administration
Bisacodyl 10 mg 12/27/24 20:04
Bisacodyl 10 Mg Rectal Suppository RECTAL 01/24/25 20:03
DAILYPRN PRN
constipation
Calcium Chloride 500 mg 12/27/24 20:04
Calcium Chloride 10% (100 Mg/Ml) 1 Gram Syringe IV 01/24/25 20:03
PRN PRN
SBP < 70 mmHg
Ceftriaxone Sodium 2,000 mg 12/27/24 21:00 12/30/24 08:42
Ceftriaxone 2,000 Mg/20 Ml Vial IV 2,000 mg
Q12H VANESSA Administration
Cyclobenzaprine HCl 5 mg 12/27/24 20:04 12/29/24 15:15
Cyclobenzaprine 10 Mg Tablet PO 01/24/25 20:03 5 mg
Q8HPRN PRN Administration
muscle spasm
Dextrose 12.5 grams 12/27/24 20:04
Dextrose 50% (0.5 Grams/Ml) 50 Ml Syringe IV 01/24/25 20:03
[id number] PRN
Blood Glucose < 70
Fluoxetine HCl 40 mg 12/29/24 10:00 12/30/24 08:42
Fluoxetine 20 Mg Capsule PO 01/26/25 09:59 40 mg
DAILY VANESSA Administration
Gabapentin 100 mg 12/27/24 20:04 12/30/24 15:35
Gabapentin 100 Mg Capsule PO 01/24/25 20:03 100 mg
TID VANESSA Administration
Guaifenesin 600 mg 12/30/24 10:00 12/30/24 11:23
Guaifenesin 600 Mg Extended Release Tablet PO 01/27/25 09:59 600 mg
Q12 VANESSA Administration
Hydromorphone HCl 0.5 mg 12/27/24 20:04 12/29/24 22:43
Hydromorphone 0.5 Mg/0.5 Ml Syringe IV 12/30/24 20:03 0.5 mg
Q3HPRN PRN Administration
severe pain
Hydromorphone HCl 0.25 mg 12/27/24 20:04 12/30/24 17:55
Hydromorphone 0.25 Mg/0.5 Ml Syringe IV 01/10/25 20:03 0.25 mg
Q3HPRN PRN Administration
moderate pain
Sodium Chloride 500 mls @ 10 mls/hr 12/27/24 20:04 12/29/24 21:20
Nss IV 01/24/25 14:49 500 mls
CORDIS VANESSA Administration
Calcium Gluconate 2 gram in 100 mls @ 100 mls/hr 12/27/24 20:04 12/30/24 11:23
Calcium Gluconate IV 01/24/25 20:03 100 mls
PRN PRN Administration
ionized Calcium < 1.18 mmol/L
Magnesium Sulfate 2 gram in 50 mls @ 25 mls/hr 12/27/24 20:04
Magnesium Sulfate IV 01/24/25 20:03
PRN PRN
magnesium < or = 2 mg/dL
Levetiracetam 500 mg 12/28/24 20:00 12/30/24 08:42
Levetiracetam (100 Mg/Ml) 500 Mg/5 Ml Vial IV 01/25/25 19:59 500 mg
Q12 VANESSA Administration
Lidocaine 1 patch 12/29/24 14:15 12/30/24 08:42
Lidocaine 4% Topical Patch TOPICAL 01/26/25 14:14 1 patch
DAILY VANESSA Administration
Protocol
Magnesium Hydroxide 30 ml 12/27/24 20:04
Milk Of Magnesia 30 Ml Cup PO 01/24/25 20:03
BIDPRN PRN
if no BM in three days
Meperidine HCl 12.5 mg 12/27/24 20:04
Meperidine 25 Mg/Ml Injection IV
[id number] PRN
shivering
Metoprolol Tartrate 12.5 mg 12/28/24 08:00 12/30/24 08:42
Metoprolol 12.5 Mg Regular Release Dose (1/2 Of 25 Mg Tablet) PO 01/25/25 07:59 12.5 mg
Q12 VANESSA Administration
Mupirocin 0 applic 12/27/24 20:04 12/30/24 08:43
Mupirocin 2% (Ointment) 22 Gram Tube NASAL 12/31/24 08:01 1 applic
Q12 VANESSA Administration
Ondansetron HCl 4 mg 12/27/24 20:04
Ondansetron 4 Mg/2 Ml Vial IV 01/24/25 20:03
Q8HPRN PRN
nausea/vomiting
Oxycodone HCl 5 mg 12/27/24 20:04 12/30/24 15:40
Oxycodone 5 Mg Regular Release Tablet PO 01/10/25 20:03 5 mg
Q4HPRN PRN Administration
moderate pain
Oxycodone HCl 2.5 mg 12/27/24 20:04
Oxycodone 5 Mg Regular Release Tablet PO 01/10/25 20:03
Q4HPRN PRN
mild pain
Pantoprazole Sodium 40 mg 12/28/24 08:00 12/30/24 08:41
Pantoprazole 40 Mg Delayed Release Tablet PO 01/25/25 07:59 40 mg
DAILY VANESSA Administration
Patch Removal 0 patch 12/29/24 20:00 12/29/24 20:39
Remove Lidocaine Patch REMOVE 01/26/25 19:59 1 patch
DAILY@2000 VANESSA Administration
Senna/Docusate Sodium 1 tablet 12/27/24 20:04 12/30/24 08:42
Docusate W/Senna (Lizett-Colace) Tablet PO 01/24/25 20:03 1 tablet
Q12 VANESSA Administration
Sodium Bicarbonate 650 mg 12/30/24 14:00 12/30/24 14:14
Sodium Bicarbonate 650 Mg Tablet PO 01/27/25 13:59 650 mg
DAILY VANESSA Administration
Sodium Chloride 0 flush 12/27/24 21:00 12/28/24 22:20
Sodium Chloride 0.9% (Flush) Syringe IV 01/24/25 20:59 1 flush
PER PROTOCOL VANESSA Administration
Sterile Water 20 ml 12/27/24 23:45 12/30/24 08:42
Sterile Water For Injection 20 Ml Vial IV 01/24/25 23:44 20 ml
BID@0900,2100 VANESSA Administration
Home Medications
-
Home Medications
alprazolam 0.5 mg tablet 0.5 mg PO DAILY Mental Health/Anxiety 12/26/24
amlodipine 5 mg tablet 5 mg PO DAILY Blood Pressure 12/26/24
fluoxetine 40 mg capsule 40 mg PO DAILY Mental Health/Anxiety 12/26/24
zolpidem 12.5 mg tablet,extended release,multiphase 12.5 mg PO HS Sleep 12/26/24
buprenorphine HCl 8 mg sublingual tablet 8 mg sublingual DAILY 12/29/24
--- NOTE | 2024-12-30 19:30 | PTCARENOTE ---
assumed care of pt from previous RN. pt drowsy, responds to verbal stimuli. pt oriented to person, unable to state correct year or place. mild expressive aphasia noted. PERRLA, 3mm, brisk. see neuro/NIHSS flowsheet for details. SR w/ 1st degree AVB.
temp epicardial A/V wires w/ backup settings VVI 50/15/1. CTx2 (mediastinal x2) to -20cm wall suction, draining serosanguineous drainage. POX 95-97% on 2 L NC. abd s/n, +BS. pt reports poor appetite. cortes catheter draining clear, yellow colored
urine. all surgical sites stable, CDI. RUE SL PICC intact. see worklist for complete nursing assessment, interventions, VS, and I&Os.
[2024-12-30] MEDS: REMOVE LIDOCAINE PATCH 1 PATCH REMOVE (20:11)
[2024-12-30] MEDS: PACERONE 200 MG PO (20:11)
[2024-12-30 23:24] LABS: Blood Urea Nitrogen 75 mg/dl (9-20); Calcium 7.8 mg/dl (8.4-10.2); Carbon Dioxide 20 mmol/L (22-30); Chloride 102 mmol/L (98-107); Estimated Creatinine Clearance 33 ml/min; Glucose 130 mg/dl (70-99); Magnesium 2.1 mg/dl (1.6-2.3); Potassium 4.3 mmol/L (3.5-5.1); Sodium 132 mmol/L (135-145); eGFR 26.65
[2024-12-31] VITALS (17 sets, daily range): BP systolic 122–182; BP diastolic 86–104; PULSE 76; O2SAT 95; BMI 24.4
[2024-12-31] MEDS: CALCIUM GLUCONATE 100 IV
--- NOTE | 2024-12-31 | PTCARENOTE ---
assessment remains unchanged. armando worthington placed back on pt, core temp 96.9. pt c/o 'being too hot.' pt educated re: core temp.
[2024-12-31] MEDS: FLEXERIL 5 MG PO ×3 (01:03→19:39)
--- NOTE | 2024-12-31 04:00 | PTCARENOTE ---
no acute changes. VSS.
[2024-12-31] MEDS: TYLENOL 1000 MG PO ×3 (04:59→21:14)
[2024-12-31 05:20] LABS: Hematocrit 25.0 % (39.0-52.0); Hemoglobin 8.8 g/dL (13.0-18.0); Mean Corp Hgb Conc. 35.2 g/dL (33.0-37.0); Mean Corpuscular Volume 82.2 fL (80.0-94.0); Platelet Count 144 10^3/uL (130-400); Red Cell Dist. Width 18.0 % (11.5-14.5)
[2024-12-31 05:51] LABS: Blood Urea Nitrogen 75 mg/dl (9-20); Calcium 8.3 mg/dl (8.4-10.2); Carbon Dioxide 20 mmol/L (22-30); Chloride 101 mmol/L (98-107); Estimated Creatinine Clearance 34 ml/min; Glucose 110 mg/dl (70-99); Magnesium 2.0 mg/dl (1.6-2.3); Potassium 4.2 mmol/L (3.5-5.1); Sodium 131 mmol/L (135-145); eGFR 27.84
[2024-12-31] MEDS: ROXICODONE 5 MG PO ×3 (06:11→14:49)
--- NOTE | 2024-12-31 06:33 | W.PN.CT ---
Today's Communication / Plan
-
-pod #4-no significant issues overnight. A&O x4, moving all extremities
-Head CT last night 12/30 with stable, decreased or resolved multiple small foci of high attenuation suggesting probable subarachnoid hemorrhage and hemorrhagic septic emboli.
-Per Dr. Denney, plans to start iv Heparin today for mechanical AVR this am with close Neuro checks. If remains stable, plan to start Coumadin tonight
-Neurology following and started him on Keppra, 12/29 EEG- no evidence of epileptiform abnormalities. ? repeating head CT 6 hrs after starting iv Heparin- will review with Neurology
-med CT output: 70/190 in 12/24 hrs
-ID following - on iv Ceftriaxone 2g q12 hrs
-R PNA- on abx
-low temp 95.8 yesterday 12/30- required Kenny hugger - blood and urine cx sent 12/30. Sputum cx (unable to capture sputum). Wbc trended down - 9.1 today (from 10.9)
-Nephrology following - diuresed 12/30 with Ethacrynate 50 mg iv bid. Follow Cr- 2.7 today
-Metabolic acidosis 12/30 - got 2 bicarb iv and started on daily po bicarbonate
-repleted Ca last night 12/30
-evaluated by Psych 12/30 for hx substance abuse
-encourage IS, OOB
-on regular solids with thin liquids with aspiration precautions
-continue PT/OT- recommend acute rehab
-appreciate everyone's input
Assessment / Plan
-
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
and debridement, c/b post op bleeding from CT and re-exploration/venous bleeding and oozing from the sternum on 12/27/[address] Denney, POD #4
Post-AMANDA: Normal biventricular function w/ LVEF 65%, well-seated AVR w/ mean gradient 11mmHg, normal washing jets. MV w/ MILD-to-mod regurgitation w/ improvement in preoperative RHONDA.
EKG 12/27/24 NSR 1st degree AVB
Radiology: CT [place]: Sm L pleural effusion, mod ascities, mod splenomegaly hypodense lesion upper pole of spleen concern for splenic infarct. MRI: 12/23/24 Multiple cortical and subcortical foci concern for septic emboli which can demonstrate
ischemic changes with restricted diffusion as well as hemorrhagic damage to the brain. Linear areas of non flair suppression and diminished signal suggest possible subarachnoid hemorrhage
Echo 12/22/24 EF 60-65, mild LVH, mildly dilated LA, severe thickening of anterior and posterior mitral leaflets,mild-mod MR, mod sized 0.4 x 0/7 oscillating heterogeneous echodensity attahced to noncoronary cusp, mild-mod AR, PG 23.5/MG 13.1, small
pericardial effusion
Assessment:
-Strep Mutans AV endocarditis
-Acute hypoxic respiratory failure
-Strep Mutans bacteremia
-moderate AI
-moderate MR with RHONDA
-metastatic septic emboli to the brain, spleen
-oliguric CORNELIO on probable CKD IIIb
-Renal calculi
-coagulopathy
-transfusion dependent anemia
-thrombocytopenia
-unintentional weight loss
-dental cap dislodgement
-possible left mandibular canine abscess, per panelipse 12/27
-Panelipse from 12/27 showed suspicious lesion on the left mandibular canine concerning for possible abscess, seen by [facility] 12/29 and determined to be unremarkable, no intervention needed, outpt f/u
-hx anxiety/depression
-hx HTN
-hx opioid addiction per , prescribed for management of recurrent renal stones and escalated after his father's approx. 2 yrs ago (on Buprenorphine preop)
-Acute postop blood loss Anemia on probable Anemia of Chronic CKD (transfused 3u PRBC's, 2u FFPs)
-Acute postop thrombocytopenia (transfused 2 {5pks}of plts)
-Acute postop VDRF/hypoxemia
-Acute postop atelectasis
-Acute postop hypovolemia with subsequent hypervolemia
-Acute postop SAH involving frontal lobe, right parietal occipital lobe and left parietal lobe
-Acute postop suspected Hemorrhagic septic emboli
-Acute CORNELIO on suspected CKD
-Acute postop metabolic acidosis
-Acute postop hyponatremia
-
Discussed patient care with: Nursing and Care Team
Subjective
-
Date of Service: December 31, 2024
Objective Data
-
PT 17.4 Sec (11.4-14.6) H 12/29/24 03:08
INR 1.40 12/29/24 03:08
APTT 34.3 Sec (23.4-35.0) 12/28/24 17:33
Vital Signs
Vital Signs
Temp Pulse Resp BP Pulse Ox
96.9 F L 76 16 161/92 96
12/31/24 00:00 12/31/24 00:00 12/31/24 00:00 12/31/24 00:00 12/31/24 00:00
CT Intake/Output/Weight
12/30/24 12/30/24 12/31/24
06:59 18:59 06:59
Intake Total 360.8 / 784.3 310 / 410 100 / 410
Output Total 1105 / 1950 1020 / 1510 490 / 1510
Balance -744.2 / -1165.7 -710 / -1100 -390 / -1100
SaO2: 96
Physical Exam
-
General: Awake and AOx3
Cardiovascular: Regular rate & rhythm (sharp S2), No Murmurs and No Rub
Respiratory: Wheeze (soft, expiratory wheeze b/l) and Decreased Breath Sounds (rales at bases b/l, R>L)
Sternum: Stable
Incision: Clean, Dry and Intact
Extremities: Edema +2 (1+ DPs)
Abdomen: soft, nontender, nondistended, + bowel sounds
Data Reviewed
-
Lab Results: Results Reviewed
Medications: Active Meds Reviewed
Chest X-Ray: Report Reviewed and Image Reviewed
ECG: Report Reviewed and Image Reviewed
--- NOTE | 2024-12-31 07:45 | PTCARENOTE ---
Resumed care of patient. Walking rounds completed with previous RN. Pt assessed while he was sitting in the chair. Pt drowsy but oriented to self, , age, place and year. Pt appears depressed, frustrated with current situation and care. ACEVES with
equal strength throughout. NIH 1. Pt has mild aphasia and is repetitive with words. No facial droop, no slurring noted. PERRLA 3mm brisk. No visual deficits noted. Denies shortness of breath and nausea. Rates sternal pain 10/10, per CT [employer], Dilaudid
to be held to be able to assess neuro status. SR with 1st degree AVB and BBB with rates in the 70s. BP 142/86. +click. Bilateral radial and DP pulses palpable. +2 dependent edema in b/l ankles. AV wires to back up, no pacing noted. POX 98% on 1L,
titrated to RA, POX 95%. Lungs coarse with crackles in b/l lower lobes. Occasional nonproductive moist cough. CDB encouraged. IS encouraged-750mL achieved. Mediastinal chest tubes x2 y-sited to 1 atrium to -20cm suction draining serosanguineous
fluid. Abdomen soft, round, nontender. +BS. Tolerating breakfast, reports poor appetite. Junior draining adequate amounts of bulmaro urine. Sternal incision covered with antibacterial dressing, CDI. Chest tube dressing CDI. Right upper arm PICC. IVT at
bedside to place PIV to start heparin gtt. See MAR for medication administration. See worklist for complete nursing assessment. Plan of care reviewed.
[2024-12-31] MEDS: VENTOLIN NEBULES 2.5 MG INH ×2 (07:49→19:36)
--- NOTE | 2024-12-31 08:17 | W.PN.NEPH.PH ---
Today's Communication / Plan
-
Escalate sodium bicarb to twice a day
Provide ethacrynic acid IV 50 mg
Assessment/Plan
-
Impression:
CORNELIO
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
bleeding and re-exploration/venous bleeding and oozing from the sternum on 12/27/24
VDRF post op
Hyperkalemia
Septic brain emboli
Splenic infarct
Strep mutans bacteremia
Anemia
Thrombocytopenia
Anxiety/depression
History of obstructive uropathy due to nephrolithiasis with double-J stent
SAH
Plan:
Creatinine improving to 2.7(2.6 on presentation) post contrast exposure on 12/28
non oliguric with cortes ~1600cc
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
Previous serological workup was reviewed from [facility]
UA notes: 4+ blood and 4+ albumin, neg urine eosinophil
Acidemia with met acidosis s/p 1 amp bicarb, r, PH improving to 7.34
will escalate sodium bicarbonate to 650 BID
hemodynamically stable
wt is up and s/p Ethacrynic acid which will be provided again today IV for volume overload
follow h/h, prn transfusion
no acute Hd indication
d/w nursing
-
-
Date of Service: December 31, 2024
CC / HPI / ROS
-
Chief Complaint:
CORNELIO
History of Present Illness:
creatinine down at 2.7non oliguric with cortes
s/p AVR for IE on 6/14
Hemodynamically stable
no fever, exp aphasia (improving), stroke alert 12/28 and has CTA head and neck, new SAH noted , remains off AC
bicarb 20, ph 7.34
hgb better at 8.8 post PRBC
Review of Systems:
extubated 12/28
on NC o2
Chest tube
Labs
-
Labs:
WBC 9.1 10^3/uL (4.8-10.8) 12/31/24 04:53
RBC 3.04 10^6/uL (4.70-6.10) L 12/31/24 04:53
Hgb 8.8 g/dL (13.0-18.0) L 12/31/24 04:53
Hct 25.0 % (39.0-52.0) L 12/31/24 04:53
Plt Count 144 10^3/uL (130-400) 12/31/24 04:53
Sodium 131 mmol/L (135-145) L 12/31/24 04:53
Potassium 4.2 mmol/L (3.5-5.1) 12/31/24 04:53
Chloride 101 mmol/L (98-107) 12/31/24 04:53
Carbon Dioxide 20 mmol/L (22-30) L 12/31/24 04:53
BUN 75 mg/dl (9-20) H 12/31/24 04:53
Creatinine 2.7 mg/dL (0.7-1.3) H 12/31/24 04:53
eGFR 27.84 12/31/24 04:53
Glucose 110 mg/dl (70-99) H 12/31/24 04:53
Calcium 8.3 mg/dl (8.4-10.2) L 12/31/24 04:53
Phosphorus 8.6 mg/dl (2.5-4.5) H 12/29/24 03:08
Albumin 2.0 g/dl (3.5-5.0) L 12/28/24 17:33
Physical Exam
-
Vital Signs:
Vital Signs
Temp Pulse Resp BP Pulse Ox
97.2 F 74 18 157/104 97
12/31/24 04:00 12/31/24 07:51 12/31/24 07:51 12/31/24 06:25 12/31/24 07:51
Cardiovascular:: Regular rate and rhythm
Respiratory:: Bilateral: Coarse (decreased)
Lung Excursion:: Normal
Abdomen:: Nontender and Soft
Bowel Sounds:: Decreased
Extremity Edema:: +1: Bilateral:
Cortes Catheter: Yes
Other Findings::
GEN: awake and interactive
chest tube
[2024-12-31 08:23] LABS: INR 1.69; PT 20.4 Sec (11.4-14.6)
[2024-12-31 08:24] LABS: APTT 37.8 Sec (23.4-35.0)
[2024-12-31] MEDS: PROZAC 40 MG PO (08:37)
[2024-12-31] MEDS: MUCINEX 600 MG PO ×2 (08:37→19:39)
[2024-12-31] MEDS: BACTROBAN 2% OINTMENT 1 APPLIC NASAL (08:37)
[2024-12-31] MEDS: SENOKOT-S 1 TABLET PO ×2 (08:37→19:39)
[2024-12-31] MEDS: LIDOCAINE 4% PATCH 1 PATCH TOPICAL (08:37)
[2024-12-31] MEDS: PROTONIX 40 MG PO (08:38)
[2024-12-31] MEDS: PACERONE 200 MG PO ×3 (08:38→21:14)
[2024-12-31] MEDS: NEURONTIN 100 MG PO ×3 (08:38→21:14)
[2024-12-31] MEDS: LOW STRENGTH ASPIRIN 81 MG PO (08:38)
[2024-12-31] MEDS: KEPPRA 500 MG IV ×2 (08:39→19:38)
[2024-12-31] MEDS: HEPARIN 25000 UNITS/250 ML IV (08:39)
[2024-12-31] MEDS: LOPRESSOR 12.5 MG PO ×2 (08:48→10:51)
[2024-12-31] MEDS: SODIUM BICARBONATE PO (08:59)
[2024-12-31] MEDS: SODIUM BICARBONATE 650 MG PO ×2 (08:59→19:39)
[2024-12-31] MEDS: ROCEPHIN 2000 MG IV ×2 (09:07→21:14)
[2024-12-31] MEDS: STERILE WATER FOR INJECTION 20 ML IV ×2 (09:07→21:14)
[2024-12-31] MEDS: EDECRIN 50 MG IV (09:07)
--- NOTE | 2024-12-31 10:29 | W.PN.ID1 ---
Date of Service
Date of Service: December 31, 2024
Today's Communication
Continue abx.
Assessment / Plan
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
Suspected septic emboli to the brain
Subarachnoid hemorrhage
Leukocytosis; improved
Renal insufficiency
Elevated ESR, CRP
HTN
DM type II
Nephrolithiasis
Recommendations:
Continue ceftriaxone 2 g IV every 12 hours
Patient status post valve replacement
Repeat blood cultures pending.
Records from OSH reviewed. Minimal culture data noted. Will attempt to contact microbiology department.
����������������������������������������������������������
Chief Complaint
-: Other (Strep mutans endocarditis)
Subjective / Review of Systems
Patient seen and examined. Reports sternal pain, but no fevers or chills
Vital Signs / Physical Exam
Vital Signs
Vital Signs
Temp Pulse Resp BP Pulse Ox
97.7 F 80 11 150/87 96
12/31/24 08:00 12/31/24 10:00 12/31/24 08:33 12/31/24 10:00 12/31/24 10:00
Physical Exam
Constitutional: Comfortable, Acutely Ill and Non-toxic
Eyes: No Conjunctival Hemorrhage and Sclera Anicteric
Cardiovascular: Regular Rate, S1/S2 and Murmur; Negative S3/S4
Pulmonary: Coarse and Non Labored
Gastrointestinal: Soft, Non Tender and Non Distended
Extremities: Negative Splinter Hemorrhage or Janeway Lesions
Skin: Negative Rash or Jaundice
Wound: Other (sternal wound dressed)
Neurological: Awake and Alert
Psychological: Calm
Objective Data
Lab Data
Lab Results
12/31/24 04:53
12/31/24 04:53
ESR 58 mm/hour (0-20) H 12/29/24 03:08
PT 20.4 Sec (11.4-14.6) H 12/31/24 07:55
INR 1.69 12/31/24 07:55
APTT 37.8 Sec (23.4-35.0) H 12/31/24 07:55
Estimated Creat Clear 34 ml/min 12/31/24 04:53
Lactic Acid 0.9 mmol/L (0.7-2.0) 12/28/24 03:11
Total Bilirubin 0.5 mg/dl (0.2-1.3) 12/28/24 17:33
AST 42 U/L (17-59) 12/28/24 17:33
ALT 14 U/L (0-50) 12/28/24 17:33
Alkaline Phosphatase 60 U/L (38-126) 12/28/24 17:33
C-Reactive Protein 48.80 mg/L (0.0-10.00) H 12/29/24 03:08
Most recent labs reviewed.
Micro Results:
12/30/24 10:20 Blood Culture - Preliminary
Blood/Venous No Growth in 24 hours- Final report to follow
12/27/24 12:38 Blood Culture - Preliminary
Blood/Venous No Growth in 72 hours- Final report to follow
12/30/24 11:06 Blood Culture - Pending
Blood/Venous
12/27/24 17:06 Tissue Culture - Preliminary
Heart No Growth After 48 Hours
Gram Stain - Preliminary
12/27/24 17:06 Anaerobic Culture - Preliminary
Heart Culture pending. Anaerobic cultures are examined after 3
days incubation. Additional information to follow.
12/27/24 17:14 Tissue Culture - Preliminary
Heart No Growth After 48 Hours
Gram Stain - Preliminary
12/27/24 17:14 Anaerobic Culture - Preliminary
Heart Culture pending. Anaerobic cultures are examined after 3
days incubation. Additional information to follow.
12/27/24 11:47 Blood Culture - Preliminary
Blood/Venous No Growth in 72 hours- Final report to follow
12/30/24 10:10 Urine Culture - Pending
Urine
12/27/24 17:06 Fungal Culture - Preliminary
Heart Culture in progress.
Positive cultures are reported as soon as detected.
Final report to follow in four to five weeks.
12/27/24 17:14 Fungal Culture - Preliminary
Heart Culture in progress.
Positive cultures are reported as soon as detected.
Final report to follow in four to five weeks.
12/27/24 15:00 Urine Culture - Final
Urine NO GROWTH
12/27/24 05:31 MRSA Screen - Final
Nose No Methicillin Resistant Staphylococcus aureus isolated.
12/18/2024
11:00 Blood culture
Streptococcus mutans
Ampicillin <= 0.25 S
Cefotaxime <=0.12 S
Ceftriaxone <= 0.12 S
Erythromycin <= 0.12 S
Levofloxacin =1 S
Linezolid <= 2 S
Moxifloxacin =0.25 S
Penicillin G <= 0.06 S
Vancomycin =1 S
Imaging:
12/29/2024 CT head without contrast: 'MULTIFOCAL ACUTE SUBARACHNOID HEMORRHAGE with a new small subarachnoid hemorrhage over the inferolateral margin of the right frontal lobe. Small acute subarachnoid hemorrhages in the sulci medial to the right
frontal lobe, anterior to the left frontal lobe, medial to the right parietal-occipital lobe, and posterior to the left parietal lobe which appear unchanged. Hemorrhagic septic emboli is a diagnostic consideration given the history of endocarditis.'
12/25/2024 MRI brain (performed at [facility]): Multiple cortical and subcortical foci of diminished signal intensity on susceptibility weighted sequences. The sequence suggest the presence of blood products. Concern raised for septic
emboli which can demonstrate ischemic changes resulting in restriction diffusion, as well as hemorrhagic damage to the brain. Multiple small embolic infarcts also in the differential. Contrast enhanced examination failed to demonstrate enhancing
lesions or venous filling defects or prominent venous structures thus leptomeningeal carcinomatosis or venous congestion is not consistent with this study. Linear appearing areas of non-FLAIR suppression and diminished signal on susceptibility
weighted sequences suggest associated possible subarachnoid hemorrhage within the bilateral occipital lobes. Please see full dictation for additional detail.
12/22/2024 ECHO (TTE): LV EF = 60%. Mildly dilated left atrium. Severe thickening of the anterior and posterior leaflets of the mitral valve, but without clear vegetations. Moderate sized (0.4 x 0.7 cm oscillating heterogeneous echodensity
attached to the noncoronary cusp. Aortic valve is thickened and calcified with mild to moderate eccentric aortic regurgitation.
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
--- NOTE | 2024-12-31 10:50 | PTCARENOTE ---
Pt medicated for pain as per orders. Pt still states pain 04/24. CT [employer] notified and requested to see patient.
--- NOTE | 2024-12-31 10:53 | W.PN.CD ---
Today's Communication / Plan
-
Agree with care
Impression / Plan
-
49-year-old man with no previous cardiac history who presents with unintentional weight loss since October found to have aortic valve endocarditis complicated by septic emboli to the brain and spleen, s/p AoV replacement and extensive debridement with
Dr. Denney on 12/27/24. Course complicated by subarachnoid hemorrhage.
Strep mutans aortic valve endocarditis
- c/b STROKE, hemorrhagic conversion, CORNELIO, splenic infarct
- Now s/p complex open heart surgery (12/27/2024) with mechanical AVR, debridement LVOT/MV structures
Post op new LBBB/IVCD
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
HTN
Splenic infarct, in setting of endocarditis
Thrombocytopenia/anemia
Suspected hx of opioid drug dependence and hx of depression
- Psych suggests buprenorphine at discharge be considered
Subjective: Very tired. No other complaints.
Data:
s/p mechanical AVR (25 mm On-X) s/p explant and redo AVR (23mm On-x), LVOT vegetation debridement, MV chordae vegetation resection and debridement c/b post op bleeding and re-exploration/venous bleeding and oozing from the sternum on 12/27/[address] Denney
Intraop post-op AMANDA 12/17/2024: normal LVEF, AoV with mean grad 11 mmHg, mil/mod MR
Physical Exam
Vital Signs/Labs
Vital Signs
Temp Pulse Resp BP Pulse Ox
97.7 F 80 11 150/87 96
12/31/24 08:00 12/31/24 10:00 12/31/24 08:33 12/31/24 10:00 12/31/24 10:00
12/30/24 12/31/24 01/01/25
06:59 06:59 06:59
Actual Weight 77 kg 77.2 kg
12/31/24 04:53
12/31/24 04:53
PT 20.4 Sec (11.4-14.6) H 12/31/24 07:55
INR 1.69 12/31/24 07:55
APTT 37.8 Sec (23.4-35.0) H 12/31/24 07:55
Magnesium 2.0 mg/dl (1.6-2.3) 12/31/24 04:53
Physical Exam
Constitutional: No acute distress
EENT: Anicteric
Cardiovascular: Rhythm & rate is regular and Pedal edema is absent
Respiratory: Respiratory effort normal and Lungs clear to auscul.
GI: Soft and Distention absent
Neuro/Psych: AO x 3
Data Reviewed
-
Date of Service: December 31, 2024
[2024-12-31] MEDS: VENTOLIN NEBULES INH (11:15)
[2024-12-31] MEDS: NORVASC 2.5 MG PO (11:56)
--- NOTE | 2024-12-31 12:00 | PTCARENOTE ---
Pt reassessed. Reassessed, pt assisted into bed with PT/OT. Pt c/o pain, CT FINAL ASSEMBLER BOAT made aware. NSR with 1st degree AVB and BBB with rates in the 70s. BP127/87. POX 91% on RA. Surgical sites stable. UO output WNL. CT output WNL. Pt resting in bed.
Refuses to complete IS. Very uncooperative with care. Pt educated on importance in participating in care and completing IS, pt continues to refuse.
--- NOTE | 2024-12-31 12:30 | CM ---
CM following for DC planning needs.
Reviewed PT evaluation. Pt. is being recommended for acute rehab.
I placed call to [facility] to ascertain whether they may consider admission for a patient with MA-pending. They would. They would need to confirm that MA is pending through [facility]. Other barrier is that patient requires alf IV ABT. This may also
preclude acceptance to a facility.
I did ask [facility] to review. Sent referral and am awaiting response.
[2024-12-31] MEDS: SUBUTEX 8 MG SL (12:35)
--- NOTE | 2024-12-31 13:32 | W.PN.INTV ---
Addendum entered and electronically signed by Miguel Munguia MD 01/02/25 14:20:
CDI clarification:
Cardiogenic pulmonary edema on chest x-ray was acute.
Original Note:
Today's Communication / Plan
Recommendations
Wean off oxygen
Continue incentive spirometry
Diurese as able
Antibiotics will continue
Continue postoperative care
Follow chest tube output
Heparin to be started
Eventual repeat CT to document stability of intracranial hemorrhage.
Radiographic follow-up in the next 4 to 6 weeks.
Sign off
Assessment
-
Assessment: 49-year-old male with a past medical history of depression, hypertension, insomnia and kidney stones who presented from outside hospital due to endocarditis. He presented to [facility] on 01/07 due to generalized weakness with failure to
thrive and unintentional weight loss with 30 pounds since October 2024. He lost his job 2 months ago and has been increasingly more depressed. He was found to be anemic, thrombocytopenic with acute kidney injury and elevated proBNP. Imaging showed
small left-sided pleural effusion with moderate ascites, splenomegaly with a splenic infarct and multiple nonobstructing renal calculi with diffuse subcutaneous edema. He was found to have septic emboli to the brain with bilateral cortical and
subcortical cerebral involvement. He was transfused 2 units PRBCs and then an echocardiogram was performed showing aortic valve endocarditis with moderate AI. He was transferred here to [facility] for cardiothoracic intervention. On
further review of his echocardiogram he has significant mobile vegetations on his aortic valve with associated moderate AI with a large mobile LVOT vegetation attached to his septum. Due to this, urgent surgical intervention was warranted and the
patient was recommended for surgery and consented on 12/27. Patient brought to the [facility] OR on the evening of 12/27 and underwent aortic valve resection with annular debridement, limited septal myomectomy with removal of LVOT vegetations, resection of 1
mitral valve tertiary chordae with vegetation, initially had a 25 mm aortic valve replacement which was subsequently explanted and redo AVR was performed with a mechanical 23 mm AVR. Patient transferred to the CVICU postoperatively and dry room operator
services consulted for additional management/recommendations.
Chronic conditions EDITING CLERK: Depression, hypertension, insomnia, kidney stones
Impression:
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
of 1 MV tertiary chordae with vegetation, AVR initially with 25 mm with difficulty obtaining intra annular positioning s/p explantation and redo mechanical AVR with 23 mm (POD#1)
#Septic emboli with bilateral cortical and subcortical cerebral involvement, spleen involvement + CORNELIO
# Hemorrhagic conversion of cerebral septic emboli
#Anemia + thrombocytopenia
#Leukocytosis
#CORNELIO
#Depression
#Insomnia
#Kidney stones
Plan:
-
Postoperative day #4
Stable overnight.
Oxygenation improved 91% on room air. It has been weaned off. Patient feels better from the respiratory perspective.
Chest x-ray 12/31/2024: Showed improvement right upper lobe opacity-likely pulmonary edema versus pneumonia/septic emboli.
Repeat chest x-ray 12/30/2024: Showed persistent asymmetric infiltrate right greater than left-pneumonia/septic emboli versus asymmetric pulmonary edema.(Stable chest x-ray compared to prior)
Continue to wean down as able.
Increase activity as able
prn nebulized bronchodilators - not currently bronchospastic
Encourage incentive spirometer use q1hr while awake
-
Hemodynamics stable overnight.
-Off Levophed.
-
Small subarachnoid hemorrhage-hemorrhagic conversion of septic emboli.
Stable mental status
Head CT last night 12/30 with stable, decreased or resolved multiple small foci of high attenuation suggesting probable subarachnoid hemorrhage and hemorrhagic septic embo
Anticoagulation with heparin will be started.
Streptococcus mutant endocarditis:
Continue antibiotics as per ID � currently on ceftriaxone until cultures clear-should cover for right upper lobe infiltrate as well.
Continue to follow repeat blood cultures from clearance.
Neurology also following due to septic emboli to HEAD PORTER BAGGAGE and he is currently on Keppra hemorrhagic conversion. Anticoagulation on hold.
Continue neurological checks + NIHSS q shift
-
Nephrology following due to CORNELIO; trend sCr and UOP; renally dose all meds/Abx
Metabolic acidosis due to kidney disease
Oral bicarbonate
Encourage oral intake.
Diurese as able
Monitor chest tube output (bilateral pleural chest tubes + mediastinal chest tubes x 2) no airleak
Minimal output.
Chest x-ray without significant pleural effusion or collection per
Per primary team. Hopeful to be discontinued
-
Monitor hemoglobin
Monitor platelet count and coags
Transfuse blood products as needed to maintain Hb>7g/dL, plt>50k (given post-operative status)
Monitor blood sugar to maintain euglycemia with goal BG 110-140
Insulin drip per protocol
Aspiration precautions
DVT prophylaxis
Continue nutritional support
Telemetry status.
No additional pulmonary recommendations.
Will need radiographic follow-up in the next 4 to 6 weeks to document resolution of infiltrate.
Sign off
Subjective Dataa
Subjective Data
Date of Service:
Date of Service: December 31, 2024
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
Subjective:
Patient offers no new complaints
Objective Data
Data Reviewed
Vital Signs / I&O / Oxygen:
Vital Signs
Temp Pulse Resp BP Pulse Ox
97.9 F 71 16 127/87 91
12/31/24 11:58 12/31/24 11:58 12/31/24 11:58 12/31/24 11:50 12/31/24 11:58
Intake and Output
12/30/24 12/31/24 01/01/25
06:59 06:59 06:59
Intake Total 784.3 / 784.3 410 / 650 322 / 322
Output Total 1949 / 1949 1919 / 1964 430 / 430
Balance -1165.7 / -1165.7 -1510 / -1315 -108 / -108
SaO2 [CPAP/PSV] 95
SaO2 [SIMV] 98
SaO2 91
Nasal Cannula flow liters per 1
minute
Physical Exam
General: Comfortable
HEENT: Normocephalic
Cardiovascular: S1-S2 and Other (Intact sternotomy)
Respiratory: Clear and Other (Chest tube without air leak. No excessive drainage.)
GI: Soft
Neurology: Awake and Alert
Skin: Warm
Labs/Micro/Reports
Lab Data
12/31/24 04:53
12/31/24 04:53
Laboratory Results
12/31/24
07:55
PT 20.4 H
INR 1.69
APTT 37.8 H
Microbiology
12/27/24 12:38 Blood/Venous Blood Culture - Preliminary
No Growth in 4 days- Final report to follow
12/31/24 10:54 Sputum Gram Stain - Preliminary
12/30/24 10:10 Urine Urine Culture - Preliminary
NO GROWTH
12/27/24 11:47 Blood/Venous Blood Culture - Preliminary
No Growth in 4 days- Final report to follow
12/27/24 17:06 Heart Anaerobic Culture - Preliminary
NO ANAEROBES ISOLATED
12/27/24 17:14 Heart Anaerobic Culture - Preliminary
NO ANAEROBES ISOLATED
12/30/24 11:06 Blood/Venous Blood Culture - Preliminary
No Growth in 24 hours- Final report to follow
12/27/24 17:06 Heart Tissue Culture - Preliminary
No Growth After 72 Hours
12/27/24 17:06 Heart Gram Stain - Preliminary
12/27/24 17:14 Heart Tissue Culture - Preliminary
No Growth After 72 Hours
12/27/24 17:14 Heart Gram Stain - Preliminary
12/30/24 10:20 Blood/Venous Blood Culture - Preliminary
No Growth in 24 hours- Final report to follow
12/27/24 17:06 Heart Fungal Culture - Preliminary
Culture in progress.
Positive cultures are reported as soon as detected.
Final report to follow in four to five weeks.
12/27/24 17:14 Heart Fungal Culture - Preliminary
Culture in progress.
Positive cultures are reported as soon as detected.
Final report to follow in four to five weeks.
12/27/24 15:00 Urine Urine Culture - Final
NO GROWTH
[2024-12-31 15:04] LABS: APTT 57.1 Sec (23.4-35.0)
--- NOTE | 2024-12-31 15:27 | PN.CDI ---
CDI
- -
CDI:
Physician Documentation Request
Admit Date: 12/26/24 19:43
Dear Doctor,
Please review the following and provide your response in the progress notes.
Clinical Indicators:
Pt admitted with Aortic valve endocarditis s/p AVR 12/27
Nephrology note 12/31,' wt is up and s/p Ethacrynic acid which will be provided again today IV for volume overload...'
Leak Gang Supervisor note 12/31, ' Chest x-ray 12/31/2024: Showed improvement right upper lobe opacity-likely pulmonary edema versus pneumonia/septic emboli.Repeat chest x-ray 12/30/2024: Showed persistent asymmetric infiltrate right greater than
left-pneumonia/septic emboli versus asymmetric pulmonary edema.(Stable chest x-ray compared to prior)...Diurese as able...'
Clarify which of the following accurately represents the acuity of the (pulmonary edema ).
Acute pulmonary edema
Chronic Pulmonary edema
Other ( please specify)
Use of terms such as suspected, likely, concern for, or probable (associated with a specific diagnosis that is being evaluated, monitored, or treated as if it exists) are acceptable and can be coded in the inpatient setting, when documented at the
time of discharge.
Thank you,
Mecca Cates RN
CDI Specialist
[place] [facility]
Please use your independent medical judgment in providing your response.
--- NOTE | 2024-12-31 15:30 | PTCARENOTE ---
Pt transported to CT scan with RN.
--- NOTE | 2024-12-31 16:30 | PTCARENOTE ---
Pt reassessed. Pt states 10/10 sternal pain, no PRN meds available. Neuro status unchanged occasional aphasia. oriented x4. Drowsy at times. SR with 1st degree AVB and BBB with rates in the 70s. BP 139/87. POX 88% on RA, 2L applied POX 95%. Surgical
sites stable. CT output WNL. Junior draining adequate amounts of bulmaro urine. Heparin gtt infusing at 900units/hour. No other acute changes. Pt uncooperative to participate in care including getting OOB for meals and breathing exercises. States 'i'm
tired'. Emotional support and education provided. After multiple attempts, pt agreeable to get OOB with 1 assist to chair. Pt tolerated.
--- NOTE | 2024-12-31 18:30 | PTCARENOTE ---
Pt assisted back to bed. Mediastinal chest tubes d/c per orders. Pt tolerated.
[2024-12-31] MEDS: REMOVE LIDOCAINE PATCH 1 PATCH REMOVE (19:39)
[2024-12-31] MEDS: LOPRESSOR 25 MG PO (19:39)
[2024-12-31] MEDS: NSS IV (19:39)
--- NOTE | 2024-12-31 19:45 | PTCARENOTE ---
assumed care of pt from previous RN. pt drowsy, oriented x4, resting in bed at time of assessment. NIH-1, mild aphasia. PERRLA, 3mm, brisk. SR w/ 1st degree AVB on tele-monitor. temp epicardial A/V wires insulated. POX 97% 2 L NC. abd s/n, +BS. pt
reports poor appetite. cortes catheter draining clear, bulmaro colored urine. all surgical sites stable, CDI. RUE SL PICC intact. PIV intact. heparin infusing per order. see worklist for complete nursing assessment, interventions, VS, and I&Os.
[2024-12-31 21:52] LABS: APTT 58.4 Sec (23.4-35.0)
[2024-12-31] MEDS: COUMADIN 2.5 MG PO (22:20)
[2025-01-01] VITALS (14 sets, daily range): BP systolic 134–173; BP diastolic 86–99; PULSE 71–72; BMI 24.2
--- NOTE | 2025-01-01 | PTCARENOTE ---
assessment remains unchanged. VSS.
--- NOTE | 2025-01-01 04:30 | PTCARENOTE ---
no acute changes. VSS. AM labs collected and sent.
[2025-01-01 04:36] LABS: Hematocrit 25.9 % (39.0-52.0); Hemoglobin 9.0 g/dL (13.0-18.0); Mean Corp Hgb Conc. 34.7 g/dL (33.0-37.0); Mean Corpuscular Volume 82.2 fL (80.0-94.0); Platelet Count 152 10^3/uL (130-400); Red Cell Dist. Width 18.1 % (11.5-14.5)
[2025-01-01 04:46] LABS: INR 1.73; PT 20.7 Sec (11.4-14.6)
[2025-01-01 04:47] LABS: APTT 73.4 Sec (23.4-35.0)
[2025-01-01 05:09] LABS: Blood Urea Nitrogen 75 mg/dl (9-20); Calcium 8.0 mg/dl (8.4-10.2); Carbon Dioxide 27 mmol/L (22-30); Chloride 104 mmol/L (98-107); Estimated Creatinine Clearance 38 ml/min; Glucose 110 mg/dl (70-99); Potassium 3.5 mmol/L (3.5-5.1); Sodium 135 mmol/L (135-145); eGFR 32.07
[2025-01-01] MEDS: ROXICODONE 5 MG PO ×2 (06:16→16:12)
[2025-01-01] MEDS: TYLENOL PO ×3 (06:17→22:14)
--- NOTE | 2025-01-01 07:28 | W.PN.CT ---
Today's Communication / Plan
-
-pod #5
-no significant issues overnight. A&O x4, moving all extremities
-Head CT last night 12/31 (after starting iv Heparin) with improved or stable findings suggesting small foci of intracranial hemorrhage.
-started on iv Heparin on 12/31. Coumadin started 12/31 - got 2.5 mg of Coumadin. INR today 1.73
-Neurology following and started him on Keppra, 12/29 EEG- no evidence of epileptiform abnormalities.
-ID following - on iv Ceftriaxone 2g q12 hrs
-R PNA- on abx
-low temp 95.8 yesterday 12/30- required [facility] hugger - blood and urine cx sent 12/30. Sputum cx (unable to capture sputum). Wbc trended down - 9.1 today (from 10.9)
-Nephrology following - diuresed 12/30 with Ethacrynate 50 mg iv bid. Follow Cr- 2.7 today
-Metabolic acidosis 12/30 - got 2 bicarb iv and started on daily po bicarbonate
-repleted Ca last night 12/30
-evaluated by Psych 12/30 for hx substance abuse
-encourage IS, OOB
-on regular solids with thin liquids with aspiration precautions
-continue PT/OT- recommend acute rehab
-appreciate everyone's input
Assessment / Plan
-
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
and debridement, c/b post op bleeding from CT and re-exploration/venous bleeding and oozing from the sternum on 12/27/[address] Denney, POD #5
Post-AMANDA: Normal biventricular function w/ LVEF 65%, well-seated AVR w/ mean gradient 11mmHg, normal washing jets. MV w/ MILD-to-mod regurgitation w/ improvement in preoperative RHONDA.
EKG 12/27/24 NSR 1st degree AVB
Radiology: CT [place]: Sm L pleural effusion, mod ascities, mod splenomegaly hypodense lesion upper pole of spleen concern for splenic infarct. MRI: 12/23/24 Multiple cortical and subcortical foci concern for septic emboli which can demonstrate
ischemic changes with restricted diffusion as well as hemorrhagic damage to the brain. Linear areas of non flair suppression and diminished signal suggest possible subarachnoid hemorrhage
Echo 12/22/24 EF 60-65, mild LVH, mildly dilated LA, severe thickening of anterior and posterior mitral leaflets,mild-mod MR, mod sized 0.4 x 0/7 oscillating heterogeneous echodensity attahced to noncoronary cusp, mild-mod AR, PG 23.5/MG 13.1, small
pericardial effusion
Assessment:
-Strep Mutans AV endocarditis
-Acute hypoxic respiratory failure
-Strep Mutans bacteremia
-moderate AI
-moderate MR with RHONDA
-metastatic septic emboli to the brain, spleen
-oliguric CORNELIO on probable CKD IIIb
-Renal calculi
-coagulopathy
-transfusion dependent anemia
-thrombocytopenia
-unintentional weight loss
-dental cap dislodgement
-possible left mandibular canine abscess, per panelipse 12/27
-Panelipse from 12/27 showed suspicious lesion on the left mandibular canine concerning for possible abscess, seen by [facility] 12/29 and determined to be unremarkable, no intervention needed, outpt f/u
-hx anxiety/depression
-hx HTN
-hx opioid addiction per , prescribed for management of recurrent renal stones and escalated after his father's approx. 2 yrs ago (on Buprenorphine preop)
-Acute postop blood loss Anemia on probable Anemia of Chronic CKD (transfused 3u PRBC's, 2u FFPs)
-Acute postop thrombocytopenia (transfused 2 {5pks}of plts)
-Acute postop VDRF/hypoxemia
-Acute postop atelectasis
-Acute postop hypovolemia with subsequent hypervolemia
-Acute postop SAH involving frontal lobe, right parietal occipital lobe and left parietal lobe
-Acute postop suspected Hemorrhagic septic emboli
-Acute CORNELIO on suspected CKD
-Acute postop metabolic acidosis
-Acute postop hyponatremia
-
Discussed patient care with: Nursing and Care Team
Subjective
-
Date of Service: January 01, 2025
Objective Data
-
Lab Results
01/01/25 04:28
01/01/25 04:28
PT 20.7 Sec (11.4-14.6) H 01/01/25 04:28
INR 1.73 01/01/25 04:28
APTT 73.4 Sec (23.4-35.0) H 01/01/25 04:28
Vital Signs
Vital Signs
Temp Pulse Resp BP Pulse Ox
98 F 69 16 148/99 93
01/01/25 00:00 01/01/25 03:00 01/01/25 00:00 01/01/25 01:49 01/01/25 03:00
CT Intake/Output/Weight
12/31/24 01/01/25 01/01/25
18:59 06:59 18:59
Intake Total 373 / 475.5 102.5 / 475.5
Output Total 740 / 1430 690 / 1430
Balance -367 / -954.5 -587.5 / -954.5
SaO2: 93
Physical Exam
-
General: Awake and AOx3
Cardiovascular: Regular rate & rhythm, Murmur, No Murmurs and No Rub
Respiratory: Rales (at bases, no wheeze)
Sternum: Stable
Incision: Clean, Dry and Intact
Extremities: Edema +2
Abdomen: soft, nontender, nondistended, + bowel sounds
Data Reviewed
-
Lab Results: Results Reviewed
Medications: Active Meds Reviewed
Chest X-Ray: Report Reviewed and Image Reviewed
ECG: Report Reviewed and Image Reviewed
[2025-01-01] MEDS: LIDOCAINE 4% PATCH 1 PATCH TOPICAL (07:59)
[2025-01-01] MEDS: KEPPRA 500 MG IV ×2 (07:59→19:54)
[2025-01-01] MEDS: MUCINEX 600 MG PO (08:00)
[2025-01-01] MEDS: LOPRESSOR 25 MG PO ×2 (08:00→19:56)
[2025-01-01] MEDS: SUBUTEX 8 MG SL (08:00)
[2025-01-01] MEDS: PACERONE 200 MG PO ×3 (08:00→22:14)
[2025-01-01] MEDS: SODIUM BICARBONATE 650 MG PO (08:00)
[2025-01-01] MEDS: NORVASC 2.5 MG PO (08:00)
[2025-01-01] MEDS: NEURONTIN 100 MG PO ×2 (08:00→09:59)
[2025-01-01] MEDS: SENOKOT-S 1 TABLET PO (08:00)
[2025-01-01] MEDS: PROZAC 40 MG PO (08:00)
[2025-01-01] MEDS: LOW STRENGTH ASPIRIN 81 MG PO (08:01)
[2025-01-01] MEDS: KCL 20 MEQ PO (08:01)
[2025-01-01] MEDS: PROTONIX 40 MG PO (08:01)
--- NOTE | 2025-01-01 08:14 | PTCARENOTE ---
Addendum entered by Christian Dinero RN 01/01/25 08:59:
pt is having some exp aphasia. mixing up words and word searching. flat affect and depressive manor also present. nihss 1 as documented.
Original Note:
pt oob in chair. repositioned. pt states 6/10 pain in sternum. relayed to [facility]. pain med given prior as ordered. cortes care done. heparin running as ordered.
--- NOTE | 2025-01-01 08:34 | W.PN.NEPH.PH ---
Today's Communication / Plan
-
Kidney function continues to improve
Metabolic acidosis improved on oral sodium bicarb
Will provide 50 mg IV ethacrynic acid for volume overload , weights decreasing
Assessment/Plan
-
Impression:
CORNELIO
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
bleeding and re-exploration/venous bleeding and oozing from the sternum on 12/27/24
VDRF post op
Hyperkalemia
Septic brain emboli
Splenic infarct
Strep mutans bacteremia
Anemia
Thrombocytopenia
Anxiety/depression
History of obstructive uropathy due to nephrolithiasis with double-J stent
SAH
Plan:
Creatinine improving to 2.4 (2.6 on presentation)
non oliguric with cortes ~1425 cc
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
Previous serological workup was reviewed from [facility]
UA notes: 4+ blood and 4+ albumin, neg urine eosinophil
Metabolic acidosis improved following sodium bicarbonate administration of 650 mg p.o. twice daily
Chest x-ray reviewed: right sided PNA noted
Hypertensive
weights down with ethacrynic acid: repeat again today 50mg IV
no acute Hd indication
d/w nursing
-
-
Date of Service: January 01, 2025
CC / HPI / ROS
-
Chief Complaint:
CORNELIO
History of Present Illness:
creatinine down at 2.4 non oliguric with cortes
s/p AVR for IE on 12/27
Hemodynamically stable, now hypertensive
exp aphasia (improving), stroke alert 12/28 and has CTA head and neck, new SAH noted , remains off AC
Review of Systems:
extubated 12/28
on NC o2
Chest tube out
cortes
Labs
-
Labs:
WBC 8.3 10^3/uL (4.8-10.8) 01/01/25 04:28
RBC 3.15 10^6/uL (4.70-6.10) L 01/01/25 04:28
Hgb 9.0 g/dL (13.0-18.0) L 01/01/25 04:28
Hct 25.9 % (39.0-52.0) L 01/01/25 04:28
Plt Count 152 10^3/uL (130-400) 01/01/25 04:28
Sodium 135 mmol/L (135-145) 01/01/25 04:28
Potassium 3.5 mmol/L (3.5-5.1) 01/01/25 04:28
Chloride 104 mmol/L (98-107) 01/01/25 04:28
Carbon Dioxide 27 mmol/L (22-30) 01/01/25 04:28
BUN 75 mg/dl (9-20) H 01/01/25 04:28
Creatinine 2.4 mg/dL (0.7-1.3) H 01/01/25 04:28
eGFR 32.07 01/01/25 04:28
Glucose 110 mg/dl (70-99) H 01/01/25 04:28
Calcium 8.0 mg/dl (8.4-10.2) L 01/01/25 04:28
Phosphorus 8.6 mg/dl (2.5-4.5) H 12/29/24 03:08
Albumin 2.0 g/dl (3.5-5.0) L 12/28/24 17:33
Physical Exam
-
Vital Signs:
Vital Signs
Temp Pulse Resp BP Pulse Ox
97.5 F 74 16 167/92 94
01/01/25 08:00 01/01/25 08:00 01/01/25 04:00 01/01/25 08:00 01/01/25 08:00
Cardiovascular:: Regular rate and rhythm
Respiratory:: Bilateral: Coarse (decreased)
Lung Excursion:: Normal
Abdomen:: Nontender and Soft
Bowel Sounds:: Decreased
Extremity Edema:: +1: Bilateral:
Cortes Catheter: Yes
--- NOTE | 2025-01-01 08:36 | W.PN.CD ---
Today's Communication / Plan
-
Hemodynamically stable. In sinus
BP elevated
Can titrate amlodipine as needed for BP
IV heparin to coumadin being directed by Ct surgery . INR 1.7
Impression / Plan
-
49-year-old man with no previous cardiac history who presents with unintentional weight loss since October found to have aortic valve endocarditis complicated by septic emboli to the brain and spleen, s/p AoV replacement and extensive debridement with
Dr. Denney on 12/27/24. Course complicated by subarachnoid hemorrhage.
Strep mutans aortic valve endocarditis
- c/b STROKE, hemorrhagic conversion, CORNELIO, splenic infarct
- Now s/p complex open heart surgery (12/27/2024) with mechanical AVR, debridement LVOT/MV structures
- Abx per ID
- coumadin being dosed by CT surgery- INR 1.7
Post op new LBBB/IVCD
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 improving Cr 2.4
HTN
Splenic infarct, in setting of endocarditis
Thrombocytopenia/anemia
Suspected hx of opioid drug dependence and hx of depression
- Psych suggests buprenorphine at discharge be considered
Subjective: Very tired. No other complaints.
Data:
s/p mechanical AVR (25 mm On-X) s/p explant and redo AVR (23mm On-x), LVOT vegetation debridement, MV chordae vegetation resection and debridement c/b post op bleeding and re-exploration/venous bleeding and oozing from the sternum on 12/27/[address] Denney
Intraop post-op AMANDA 12/17/2024: normal LVEF, AoV with mean grad 11 mmHg, mil/mod MR
HEAD CT 12/31/24 . COMPARISON: 12/30/2024
The ventricles are normal in size, configuration, and position. The previously seen small areas of high attenuation suggesting subarachnoid hemorrhage or hemorrhagic septic emboli are either stable or decreased. There are no new similar findings.
There is no intra- or extra-axial mass,.. There is no midline shift nor mass effect. Visualized paranasal sinuses show minimal mucosal thickening of the right maxillary sinus.
IMPRESSION:
Improved or stable findings suggesting small foci of intracranial hemorrhage. No new pathology identified...
Physical Exam
Vital Signs/Labs
Vital Signs
Temp Pulse Resp BP Pulse Ox
97.5 F 74 16 167/92 94
01/01/25 08:00 01/01/25 08:00 01/01/25 04:00 01/01/25 08:00 01/01/25 08:00
12/31/24 01/01/25 01/02/25
06:59 06:59 06:59
Actual Weight 77.2 kg 76.5 kg
01/01/25 04:28
01/01/25 04:28
PT 20.7 Sec (11.4-14.6) H 01/01/25 04:28
INR 1.73 01/01/25 04:28
APTT 73.4 Sec (23.4-35.0) H 01/01/25 04:28
Magnesium 2.0 mg/dl (1.6-2.3) 12/31/24 04:53
Physical Exam
Constitutional: No acute distress
Cardiovascular: Rhythm & rate is regular and Other (mechanical S1)
Respiratory: Wheeze Absent, Rhonchi Absent and Other (few crackles at bases )
Other: Other (ext mild edema)
Data Reviewed
-
Date of Service: January 01, 2025
Medical Decision Making: Reviewed Test Results
X-Ray/CT/US/MRI/NUC/PET: Report Reviewed by me
Medical Tests (PFT, Pathology etc): Report Reviewed by me
Labs: Labs Reviewed by me
[2025-01-01] MEDS: ROCEPHIN 2000 MG IV ×2 (09:59→22:02)
[2025-01-01] MEDS: STERILE WATER FOR INJECTION 20 ML IV ×2 (09:59→22:02)
[2025-01-01] MEDS: EDECRIN 50 MG IV (09:59)
[2025-01-01] MEDS: HEPARIN 25000 UNITS/250 ML IV (10:00)
[2025-01-01 11:13] LABS: APTT 64.8 Sec (23.4-35.0)
--- NOTE | 2025-01-01 12:11 | W.PN.NEURO.1 ---
Addendum entered and electronically signed by Akilah Hernandez MD 01/01/25 12:18:
.
Original Note:
Today's Communication / Plan
-
.
Subjective/Objective
Subjective Data
Date of Service: January 01, 2025
Neurology follow-up note.
Ms. Kwan reports no complaints. He denies having headache, change in vision, strength and sensation.
CT head wo contrast(01/01/2025) improved or stable findings suggesting small foci of intracranial hemorrhage. No new pathology identified
Labs: Creatinine�2.4, normal sodium, glucose�110.
MAR: Warfarin 2.5 started on ., Aspirin 81 mg started on 12/29/2024
PMH: Streptococcus mutans endocarditis, HTN, DLP, DM, PRETTY, MDD, opioid use disorder, nephrolithiasis
PSH: Mechanical AVR(12/27/2024)
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
All: Sulfas
ROS: Positive for encephalopathy
General: Well developed. In no acute distress.
Cardio: Regular rate and rhythm without murmur. Extremities are without cyanosis or edema.
Neuro:
Mental Status: Alert, oriented to self, person, year. Months was incorrect. Impaired attention and preserved comprehension. Follows simple requests. No hemineglect.
Cranial Nerves: Pupils are equally round and reactive to light. EOMs full. Visual ramirez full to confrontation. No ptosis. No nystagmus. Face symmetric. Normal hearing AU. The palate elevated well. SCMs and traps 5/5. Tongue midline. No
dysarthria.
Motor: No pronator or leg drift
Sensory: Limited exam due to poor attention
Coordination: No dysmetria or tremor.
Gait: deferred
Assessment and Plan:
I. Progressive multifocal SAH. Likely etiology�hemorrhagic conversion of multifocal embolic infarcts.
II. Streptococcus mutans endocarditis, s/p mechanical AVR
III. Encephalopathy (vascular, metabolic), clinically improved.
-Seizure precautions
-Stat CT head if change in neuroexam
-Brain MRI with and without pretty when feasible
-Continue Keppra 500 mg twice daily
-LDL
-Outpatient neurology follow-up
-Please recall neurology services any questions or concern
I personally reviewed all radiology and labs along with past medical records pertinent to current medical problems. Total time spent in patient care is 35 minutes.
Thank you for allowing us to participate in the care of this patient. Please do not hesitate to contact us with any questions or concerns.
Objective Data
Vital Signs
Temp Pulse Resp BP Pulse Ox
36.4 C 74 16 167/92 94
01/01/25 08:00 01/01/25 08:00 01/01/25 04:00 01/01/25 09:59 01/01/25 08:00
Lab Results
01/01/25 04:28
01/01/25 04:28
PT 20.7 Sec (11.4-14.6) H 01/01/25 04:28
INR 1.73 01/01/25 04:28
APTT 64.8 Sec (23.4-35.0) H 01/01/25 10:54
Sodium 135 mmol/L (135-145) 01/01/25 04:28
Potassium 3.5 mmol/L (3.5-5.1) 01/01/25 04:28
BUN 75 mg/dl (9-20) H 01/01/25 04:28
Glucose 110 mg/dl (70-99) H 01/01/25 04:28
Calcium 8.0 mg/dl (8.4-10.2) L 01/01/25 04:28
Phosphorus 8.6 mg/dl (2.5-4.5) H 12/29/24 03:08
Ur Buprenorphine Negative (Negative) 12/29/24 21:01
Patient Allergies
Sulfa (Sulfonamide Antibiotics) Allergy (Verified 12/26/24 21:26)
Anaphylaxis
sulfite Allergy (Verified 12/26/24 21:26)
Anaphylaxis
Vital Signs and Labs
-
Vital Signs and Labs:
Vital Signs
Temp Pulse Resp BP Pulse Ox
36.4 C 74 16 167/92 94
01/01/25 08:00 01/01/25 08:00 01/01/25 04:00 01/01/25 09:59 01/01/25 08:00
Lab Results
01/01/25 04:28
01/01/25 04:28
PT 20.7 Sec (11.4-14.6) H 01/01/25 04:28
INR 1.73 01/01/25 04:28
APTT 64.8 Sec (23.4-35.0) H 01/01/25 10:54
Sodium 135 mmol/L (135-145) 01/01/25 04:28
Potassium 3.5 mmol/L (3.5-5.1) 01/01/25 04:28
BUN 75 mg/dl (9-20) H 01/01/25 04:28
Glucose 110 mg/dl (70-99) H 01/01/25 04:28
Calcium 8.0 mg/dl (8.4-10.2) L 01/01/25 04:28
Phosphorus 8.6 mg/dl (2.5-4.5) H 12/29/24 03:08
Ur Buprenorphine Negative (Negative) 12/29/24 21:01
Medications
-
Medications:
Generic Name Dose Route Start Last Admin
Trade Name Freq PRN Reason Stop Dose Admin
Acetaminophen 650 mg 12/27/24 20:04
Acetaminophen 325 Mg Tablet PO 01/24/25 20:03
Q4HPRN PRN
mild pain,headache,temp >101F
Acetaminophen 1,000 mg 12/27/24 22:00 01/01/25 06:17
Acetaminophen 500 Mg Tablet PO 01/24/25 21:59 Not Given
TID@0600,1400,2200 VANESSA
Albuterol Sulfate 2.5 mg 01/01/25 07:37
Albuterol Nebs 2.5 Mg/3 Ml Ampul INH
R Q4HPRN PRN
wheeze
Protocol
Alprazolam 0.5 mg 12/29/24 09:01 12/29/24 09:17
Alprazolam 0.5 Mg Tablet PO 01/26/25 09:00 0.5 mg
Q6HPRN PRN Administration
anxiety
Amiodarone HCl 200 mg 12/27/24 20:04 01/01/25 08:00
Amiodarone 200 Mg Tablet PO 01/24/25 20:03 200 mg
TID VANESSA Administration
Amlodipine Besylate 2.5 mg 12/31/24 10:00 01/01/25 08:00
Amlodipine 2.5 Mg Tablet PO 01/28/25 09:59 2.5 mg
DAILY VANESSA Administration
Aspirin 81 mg 12/28/24 08:00 01/01/25 08:01
Aspirin 81 Mg Chewable Tablet PO 01/25/25 07:59 81 mg
DAILY VANESSA Administration
Bisacodyl 10 mg 12/27/24 20:04
Bisacodyl 10 Mg Rectal Suppository RECTAL 01/24/25 20:03
DAILYPRN PRN
constipation
Buprenorphine 8 mg 12/31/24 12:00 01/01/25 08:00
Buprenorphine 8 Mg Sl Tablet SL 01/14/25 11:59 8 mg
DAILY VANESSA Administration
Ceftriaxone Sodium 2,000 mg 12/27/24 21:00 01/01/25 09:59
Ceftriaxone 2,000 Mg/20 Ml Vial IV 2,000 mg
Q12H VANESSA Administration
Cyclobenzaprine HCl 5 mg 12/27/24 20:04 12/31/24 19:39
Cyclobenzaprine 10 Mg Tablet PO 01/24/25 20:03 5 mg
Q8HPRN PRN Administration
muscle spasm
Dextrose 12.5 grams 12/27/24 20:04
Dextrose 50% (0.5 Grams/Ml) 50 Ml Syringe IV 01/24/25 20:03
[id number] PRN
Blood Glucose < 70
Fluoxetine HCl 40 mg 12/29/24 10:00 01/01/25 08:00
Fluoxetine 20 Mg Capsule PO 01/26/25 09:59 40 mg
DAILY VANESSA Administration
Gabapentin 300 mg 01/01/25 20:00
Gabapentin 100 Mg Capsule PO 01/29/25 19:59
BID VANESSA
Guaifenesin 600 mg 12/30/24 10:00 01/01/25 08:00
Guaifenesin 600 Mg Extended Release Tablet PO 01/27/25 09:59 600 mg
Q12 VANESSA Administration
Hydromorphone HCl 0.25 mg 12/27/24 20:04 12/30/24 17:55
Hydromorphone 0.25 Mg/0.5 Ml Syringe IV 01/10/25 20:03 0.25 mg
On Hold: 12/31/24 09:04 Q3HPRN PRN Administration
moderate pain
Sodium Chloride 500 mls @ 10 mls/hr 12/27/24 20:04 12/31/24 19:39
Nss IV 01/24/25 14:49 Not Given
CORDIS VANESSA
Heparin Sodium 25,000 units in 250 mls @ 0 mls/hr 12/31/24 07:30 01/01/25 10:00
Heparin 39222 Units/250 Ml IV 250 mls
PER PROTOCOL VANESSA Administration
Protocol
Per Protocol
Levetiracetam 500 mg 12/28/24 20:00 01/01/25 07:59
Levetiracetam (100 Mg/Ml) 500 Mg/5 Ml Vial IV 01/25/25 19:59 500 mg
Q12 VANESSA Administration
Lidocaine 1 patch 12/29/24 14:15 01/01/25 07:59
Lidocaine 4% Topical Patch TOPICAL 01/26/25 14:14 1 patch
DAILY VANESSA Administration
Protocol
Magnesium Hydroxide 30 ml 12/27/24 20:04
Milk Of Magnesia 30 Ml Cup PO 01/24/25 20:03
BIDPRN PRN
if no BM in three days
Metoprolol Tartrate 25 mg 12/31/24 20:00 01/01/25 08:00
Metoprolol 25 Mg Regular Release Tablet PO 01/28/25 19:59 25 mg
Q12 VANESSA Administration
Ondansetron HCl 4 mg 12/27/24 20:04
Ondansetron 4 Mg/2 Ml Vial IV 01/24/25 20:03
Q8HPRN PRN
nausea/vomiting
Oxycodone HCl 5 mg 12/27/24 20:04 01/01/25 06:16
Oxycodone 5 Mg Regular Release Tablet PO 01/10/25 20:03 5 mg
Q4HPRN PRN Administration
moderate pain
Oxycodone HCl 2.5 mg 12/27/24 20:04
Oxycodone 5 Mg Regular Release Tablet PO 01/10/25 20:03
Q4HPRN PRN
mild pain
Pantoprazole Sodium 40 mg 12/28/24 08:00 01/01/25 08:01
Pantoprazole 40 Mg Delayed Release Tablet PO 01/25/25 07:59 40 mg
DAILY VANESSA Administration
Patch Removal 0 patch 12/29/24 20:00 12/31/24 19:39
Remove Lidocaine Patch REMOVE 01/26/25 19:59 1 patch
DAILY@2000 VANESSA Administration
Senna/Docusate Sodium 1 tablet 12/27/24 20:04 01/01/25 08:00
Docusate W/Senna (Lizett-Colace) Tablet PO 01/24/25 20:03 1 tablet
Q12 VANESSA Administration
Sodium Bicarbonate 650 mg 01/02/25 08:00
Sodium Bicarbonate 650 Mg Tablet PO 01/30/25 07:59
DAILY VANESSA
Sodium Chloride 0 flush 12/27/24 21:00 12/28/24 22:20
Sodium Chloride 0.9% (Flush) Syringe IV 01/24/25 20:59 1 flush
PER PROTOCOL VANESSA Administration
Sterile Water 20 ml 12/27/24 23:45 01/01/25 09:59
Sterile Water For Injection 20 Ml Vial IV 01/24/25 23:44 20 ml
BID@0900,2100 VANESSA Administration
Warfarin Sodium 2.5 mg 01/01/25 18:00
Warfarin 2.5 Mg Tablet PO 01/01/25 18:01
ONCE@1800 ONE
Home Medications
-
Home Medications
alprazolam 0.5 mg tablet 0.5 mg PO DAILY Mental Health/Anxiety 12/26/24
amlodipine 5 mg tablet 5 mg PO DAILY Blood Pressure 12/26/24
fluoxetine 40 mg capsule 40 mg PO DAILY Mental Health/Anxiety 12/26/24
zolpidem 12.5 mg tablet,extended release,multiphase 12.5 mg PO HS Sleep 12/26/24
buprenorphine HCl 8 mg sublingual tablet 8 mg sublingual DAILY 12/29/24
--- NOTE | 2025-01-01 14:02 | W.PN.ID1 ---
Date of Service
Date of Service: January 01, 2025
Today's Communication
Continue antibiotics. See below�
Assessment / Plan
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
Suspected septic emboli to the brain
Subarachnoid hemorrhage
Leukocytosis; improved
Renal insufficiency
Elevated ESR, CRP
HTN
DM type II
Nephrolithiasis
Recommendations:
Patient status post valve replacement (12/27/2024)
Continue ceftriaxone 2 g IV every 12 hours. Will need a 6 to 8-week course of therapy (in the treatment of both endocarditis and TEST ARCHITECT septic emboli) through 02/07 or 02/21.
May need repeat TEST ARCHITECT imaging to assess prior noted abnormalities.
Repeat blood cultures without growth.
����������������������������������������������������������
Chief Complaint
-: Other (Strep mutans endocarditis)
Subjective / Review of Systems
Patient seen and examined. Reports ongoing sternal pain, although controlled with pain medications
Review of Systems: No Fever and No Chills
Vital Signs / Physical Exam
Vital Signs
Vital Signs
Temp Pulse Resp BP Pulse Ox
97.5 F 74 16 167/92 94
01/01/25 08:00 01/01/25 08:00 01/01/25 04:00 01/01/25 09:59 01/01/25 08:00
Physical Exam
Constitutional: Comfortable, Acutely Ill and Non-toxic
Eyes: No Conjunctival Hemorrhage and Sclera Anicteric
Cardiovascular: Regular Rate, S1/S2 and Murmur; Negative S3/S4
Pulmonary: Coarse and Non Labored
Gastrointestinal: Soft, Non Tender and Non Distended
Extremities: Negative Splinter Hemorrhage or Janeway Lesions
Skin: Negative Rash or Jaundice
Wound: Other (sternal wound dressed)
Neurological: Awake and Alert
Psychological: Calm
Objective Data
Lab Data
Lab Results
01/01/25 04:28
01/01/25 04:28
ESR 58 mm/hour (0-20) H 12/29/24 03:08
PT 20.7 Sec (11.4-14.6) H 01/01/25 04:28
INR 1.73 01/01/25 04:28
APTT 64.8 Sec (23.4-35.0) H 01/01/25 10:54
Estimated Creat Clear 38 ml/min 01/01/25 04:28
Lactic Acid 0.9 mmol/L (0.7-2.0) 12/28/24 03:11
Total Bilirubin 0.5 mg/dl (0.2-1.3) 12/28/24 17:33
AST 42 U/L (17-59) 12/28/24 17:33
ALT 14 U/L (0-50) 12/28/24 17:33
Alkaline Phosphatase 60 U/L (38-126) 12/28/24 17:33
C-Reactive Protein 48.80 mg/L (0.0-10.00) H 12/29/24 03:08
Most recent labs reviewed.
Micro Results:
12/27/24 12:38 Blood Culture - Final
Blood/Venous No Growth - Final Report
12/27/24 11:47 Blood Culture - Final
Blood/Venous No Growth - Final Report
12/30/24 11:06 Blood Culture - Preliminary
Blood/Venous No Growth in 48 hours- Final report to follow
12/30/24 10:20 Blood Culture - Preliminary
Blood/Venous No Growth in 48 hours- Final report to follow
12/27/24 17:06 Tissue Culture - Preliminary
Heart No Growth After 72 Hours
Gram Stain - Preliminary
12/30/24 10:10 Urine Culture - Final
Urine NO GROWTH
12/31/24 10:54 Respiratory Culture - Preliminary
Sputum Elaine albicans
Gram Stain - Preliminary
12/27/24 17:06 Anaerobic Culture - Preliminary
Heart NO ANAEROBES ISOLATED
12/27/24 17:14 Anaerobic Culture - Preliminary
Heart NO ANAEROBES ISOLATED
12/27/24 17:14 Tissue Culture - Preliminary
Heart No Growth After 72 Hours
Gram Stain - Preliminary
12/27/24 17:06 Fungal Culture - Preliminary
Heart Culture in progress.
Positive cultures are reported as soon as detected.
Final report to follow in four to five weeks.
12/27/24 17:14 Fungal Culture - Preliminary
Heart Culture in progress.
Positive cultures are reported as soon as detected.
Final report to follow in four to five weeks.
12/27/24 15:00 Urine Culture - Final
Urine NO GROWTH
12/27/24 05:31 MRSA Screen - Final
Nose No Methicillin Resistant Staphylococcus aureus isolated.
12/18/2024
11:00 Blood culture
Streptococcus mutans
Ampicillin <= 0.25 S
Cefotaxime <=0.12 S
Ceftriaxone <= 0.12 S
Erythromycin <= 0.12 S
Levofloxacin =1 S
Linezolid <= 2 S
Moxifloxacin =0.25 S
Penicillin G <= 0.06 S
Vancomycin =1 S
Imaging:
12/29/2024 CT head without contrast: 'MULTIFOCAL ACUTE SUBARACHNOID HEMORRHAGE with a new small subarachnoid hemorrhage over the inferolateral margin of the right frontal lobe. Small acute subarachnoid hemorrhages in the sulci medial to the right
frontal lobe, anterior to the left frontal lobe, medial to the right parietal-occipital lobe, and posterior to the left parietal lobe which appear unchanged. Hemorrhagic septic emboli is a diagnostic consideration given the history of endocarditis.'
12/25/2024 MRI brain (performed at [facility]): Multiple cortical and subcortical foci of diminished signal intensity on susceptibility weighted sequences. The sequence suggest the presence of blood products. Concern raised for septic
emboli which can demonstrate ischemic changes resulting in restriction diffusion, as well as hemorrhagic damage to the brain. Multiple small embolic infarcts also in the differential. Contrast enhanced examination failed to demonstrate enhancing
lesions or venous filling defects or prominent venous structures thus leptomeningeal carcinomatosis or venous congestion is not consistent with this study. Linear appearing areas of non-FLAIR suppression and diminished signal on susceptibility
weighted sequences suggest associated possible subarachnoid hemorrhage within the bilateral occipital lobes. Please see full dictation for additional detail.
12/22/2024 ECHO (TTE): LV EF = 60%. Mildly dilated left atrium. Severe thickening of the anterior and posterior leaflets of the mitral valve, but without clear vegetations. Moderate sized (0.4 x 0.7 cm oscillating heterogeneous echodensity
attached to the noncoronary cusp. Aortic valve is thickened and calcified with mild to moderate eccentric aortic regurgitation.
--- NOTE | 2025-01-01 14:22 | CM ---
CM following for DC planning needs.
Met w/ patient at bedside. Reviewed role of CM.
DC plan uncertain at this time. Pt. is MA-pending status and has no insurance coverage at the moment. Pt. will need PT per PT evaluations + correction IV ABT.
I have initiated referrals to [facility] and [facility]. [facility] unable to accept as they are not taking MAP at this time. Awaiting response from [facility]. Issue for [facility] will likely be correction IV ABT needs.
I have also initiated referrals to SNFs; thus far, no positive responses-all unable to accept MA pending.
Will cont. to follow.
--- NOTE | 2025-01-01 15:15 | PTCARENOTE ---
Received patient from CVICU in his recliner chair. Oriented to the room and plan of care. IV heparin infusing at 950 units/hr, PTT is at a therapeutic range. Nursing assessment completed, NIH unchanged from the prior nurse's assessment. Call quesada in
reach, family in visiting now.
--- NOTE | 2025-01-01 15:44 | W.PN.UPDATE ---
Update Note
Progress Note Update
patient seen chart reviewed. discussed with nursing. wilma at bedside giving patient a pedicure. rebel was in much better spirits. sensorium is clearling. still struggling with finding himself so ill and being in a dependent position at this
point but resolving to accept all the help that is offered to him and move on with his life. he was obsessing about workand not having a job but pointed out to him that health is paramount and 'first things first.' do not see the need to
change psych meds. prn opiate use is diminishing which is also a good sign. will have psych look in on him tomorrow.
[2025-01-01 16:00] LABS: HDL Cholesterol 36 mg/dl; LDL Cholesterol, Calculated 72 mg/dl; Very Low Density Lipoprotein 48 mg/dl (0-30)
[2025-01-01] MEDS: COUMADIN 2.5 MG PO (17:30)
--- NOTE | 2025-01-01 17:35 | PTCARENOTE ---
Patient medicated with oxycodone 5mg for sternal incisional chest pain, rated 10/10. Complaining that we are not giving him strong enough pain medication. 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
and not in pain. Explained multimodal pain management that is ordered. Dr. Denney in to see the patient and afterwards the patient's stated that the surgeon also explained pain meds that were ordered and avoiding opioids with his neuro status.
Post pain evaluation after oxycodone, he states that his pain is still a 10/10, and he will 'have to live with it', that he has a strong tolerance to meds. Sitting upright in bed, eating his dinner, call quesada in reach.
--- NOTE | 2025-01-01 18:37 | PTCARENOTE ---
Patient voided 425ml clear bulmaro urine in the urinal
[2025-01-01] MEDS: NEURONTIN PO (19:49)
[2025-01-01] MEDS: REMOVE LIDOCAINE PATCH 1 PATCH REMOVE (19:49)
[2025-01-01] MEDS: SENOKOT-S PO (19:49)
[2025-01-01] MEDS: MUCINEX PO (19:50)
[2025-01-01] MEDS: NSS IV (19:58)
--- NOTE | 2025-01-01 22:34 | PTCARENOTE ---
Patient received at change of shift resting in the bed. Heparin gtt infusing at 950 units/hr. Sinus rhythm on telemetry with BBB, prolonged QT, and first degree AV block. NIH 1, neurological check WDL. Patient AOx3, lethargic but responds to verbal
and tactile stimulation. Sternal incision with aquacell, C/D/I. Chest tube sites and insulated epicardial wires with intact dressing present. Sacral foam in place for pressure ulcer prevention. Patient reports severe incisional pain at his sternum
but presently declines scheduled pain medications and has not asked for his PRN pain medications. The patient currently refuses to get OOB, wishes to sleep at this time and has been sleeping in between care. CHG wipes completed as patient has single
lumen right upper extremity PICC line. Plan of care discussed including importance of medication adherence. Call quesada within reach. Care ongoing.
[2025-01-02] VITALS (21 sets, daily range): BP systolic 128–165; BP diastolic 84–102; PULSE 74–75; O2SAT 93–95; BMI 24.5
[2025-01-02] MEDS: XANAX 0.5 MG PO (02:37)
[2025-01-02] MEDS: ROXICODONE 5 MG PO ×5 (02:37→22:00)
[2025-01-02 02:57] LABS: Hematocrit 25.6 % (39.0-52.0); Hemoglobin 9.0 g/dL (13.0-18.0); Mean Corp Hgb Conc. 35.2 g/dL (33.0-37.0); Mean Corpuscular Volume 82.1 fL (80.0-94.0); Platelet Count 161 10^3/uL (130-400); Red Cell Dist. Width 18.5 % (11.5-14.5)
[2025-01-02 03:09] LABS: Blood Urea Nitrogen 73 mg/dl (9-20); Calcium 7.9 mg/dl (8.4-10.2); Carbon Dioxide 25 mmol/L (22-30); Chloride 105 mmol/L (98-107); Estimated Creatinine Clearance 43 ml/min; Glucose 110 mg/dl (70-99); Potassium 3.8 mmol/L (3.5-5.1); Sodium 134 mmol/L (135-145); eGFR 37.64
[2025-01-02 03:17] LABS: INR 4.14; PT 39.6 Sec (11.4-14.6)
[2025-01-02 03:19] LABS: APTT 73.3 Sec (23.4-35.0)
[2025-01-02] MEDS: TYLENOL PO ×2 (05:15→14:57)
--- NOTE | 2025-01-02 06:01 | PTCARENOTE ---
Heparin gtt to be stopped per CT surgery JACOB Arita. INR 4.14. Heparin gtt stopped and disconnected from patient.
--- NOTE | 2025-01-02 07:31 | W.PN.CT ---
Today's Communication / Plan
-
-pod #6
-no significant issues overnight. A&O x4, moving all extremities
-got 2 doses of 2.5 mg of Coumadin. INR today 4.14. Dcd iv Heparin. Hold Coumadin today
-encourage IS, OOB, ambulae
-continue PT/OT- recommend acute rehab
-appreciate everyone's input
Assessment / Plan
-
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
and debridement, c/b post op bleeding from CT and re-exploration/venous bleeding and oozing from the sternum on 12/27/[address] Denney, POD #6
Post-AMANDA: Normal biventricular function w/ LVEF 65%, well-seated AVR w/ mean gradient 11mmHg, normal washing jets. MV w/ MILD-to-mod regurgitation w/ improvement in preoperative RHONDA.
EKG 12/27/24 NSR 1st degree AVB
Radiology: CT [place]: Sm L pleural effusion, mod ascities, mod splenomegaly hypodense lesion upper pole of spleen concern for splenic infarct. MRI: 12/23/24 Multiple cortical and subcortical foci concern for septic emboli which can demonstrate
ischemic changes with restricted diffusion as well as hemorrhagic damage to the brain. Linear areas of non flair suppression and diminished signal suggest possible subarachnoid hemorrhage
Echo 12/22/24 EF 60-65, mild LVH, mildly dilated LA, severe thickening of anterior and posterior mitral leaflets,mild-mod MR, mod sized 0.4 x 0/7 oscillating heterogeneous echodensity attahced to noncoronary cusp, mild-mod AR, PG 23.5/MG 13.1, small
pericardial effusion
Assessment:
-Strep Mutans AV endocarditis
-Acute hypoxic respiratory failure
-Strep Mutans bacteremia
-moderate AI
-moderate MR with RHONDA
-metastatic septic emboli to the brain, spleen
-oliguric CORNELIO on probable CKD IIIb
-Renal calculi
-coagulopathy
-transfusion dependent anemia
-thrombocytopenia
-unintentional weight loss
-dental cap dislodgement
-possible left mandibular canine abscess, per panelipse 12/27
-Panelipse from 12/27 showed suspicious lesion on the left mandibular canine concerning for possible abscess, seen by [facility] 12/29 and determined to be unremarkable, no intervention needed, outpt f/u
-hx anxiety/depression
-hx HTN
-hx opioid addiction per , prescribed for management of recurrent renal stones and escalated after his father's approx. 2 yrs ago (on Buprenorphine preop)
-Acute postop blood loss Anemia on probable Anemia of Chronic CKD (transfused 3u PRBC's, 2u FFPs)
-Acute postop thrombocytopenia (transfused 2 {5pks}of plts)
-Acute postop VDRF/hypoxemia
-Acute postop atelectasis
-Acute postop hypovolemia with subsequent hypervolemia
-Acute postop SAH involving frontal lobe, right parietal occipital lobe and left parietal lobe
-Acute postop suspected Hemorrhagic septic emboli
-Acute CORNELIO on suspected CKD
-Acute postop metabolic acidosis
-Acute postop hyponatremia
-
Discussed patient care with: Nursing and Care Team
Subjective
-
Date of Service: January 02, 2025
Objective Data
-
Lab Results
01/02/25 02:42
01/02/25 02:42
PT 39.6 Sec (11.4-14.6) H 01/02/25 02:42
INR 4.14 D 01/02/25 02:42
APTT 73.3 Sec (23.4-35.0) H 01/02/25 02:42
Vital Signs
Vital Signs
Temp Pulse Resp BP Pulse Ox
97.9 F 71 20 142/93 93
01/02/25 07:05 01/02/25 05:00 01/02/25 07:05 01/02/25 02:40 01/02/25 07:05
CT Intake/Output/Weight
01/01/25 01/02/25 01/02/25
18:59 06:59 18:59
Intake Total 257.0 / 257.0 344.5 / 344.5
Output Total 510 / 510
Balance -253.0 / -253.0 344.5 / 344.5
SaO2: 93
Physical Exam
-
General: Awake and AOx3
Cardiovascular: Regular rate & rhythm, Murmur, No Murmurs and No Rub
Respiratory: Rales (at bases, no wheeze)
Sternum: Stable
Incision: Clean, Dry and Intact
Abdomen: soft, nontender, nondistended, + bowel sounds
Extremities: Edema +2
Data Reviewed
-
Lab Results: Results Reviewed
Medications: Active Meds Reviewed
Chest X-Ray: Report Reviewed and Image Reviewed
ECG: Report Reviewed and Image Reviewed
[2025-01-02] MEDS: LIDOCAINE 4% PATCH 1 PATCH TOPICAL (07:49)
[2025-01-02] MEDS: NEURONTIN 300 MG PO ×2 (07:49→21:01)
[2025-01-02] MEDS: PROTONIX 40 MG PO (07:50)
[2025-01-02] MEDS: PACERONE 200 MG PO ×3 (07:50→22:02)
[2025-01-02] MEDS: SUBUTEX SL (07:51)
[2025-01-02] MEDS: LOPRESSOR 25 MG PO (07:51)
[2025-01-02] MEDS: LOW STRENGTH ASPIRIN 81 MG PO (07:51)
[2025-01-02] MEDS: NORVASC 2.5 MG PO (07:52)
[2025-01-02] MEDS: SODIUM BICARBONATE 650 MG PO (07:53)
[2025-01-02] MEDS: PROZAC 40 MG PO (07:53)
[2025-01-02] MEDS: KEPPRA 500 MG IV ×2 (08:46→21:02)
[2025-01-02] MEDS: SENOKOT-S PO (08:47)
[2025-01-02] MEDS: MUCINEX PO (08:47)
--- NOTE | 2025-01-02 10:42 | W.PN.CD ---
Today's Communication / Plan
-
Continue antibiotics for endocarditis
Coumadin on hold for supratherpaeutic INR (mechanical AVR)
Increase Amlodipine
Pain control per CT surgery/psych
We will not see over the weekend. Please call with questions/concerns.
Impression / Plan
-
49-year-old man with no previous cardiac history who presents with unintentional weight loss since October found to have aortic valve endocarditis complicated by septic emboli to the brain and spleen, s/p AoV replacement and extensive debridement with
Dr. Denney on 12/27/24. Course complicated by subarachnoid hemorrhage.
Strep mutans aortic valve endocarditis
- c/b STROKE, hemorrhagic conversion, CORNELIO, splenic infarct
- Now s/p complex open heart surgery (12/27/2024) with mechanical AVR, debridement LVOT/MV structures
- Abx per ID
- coumadin being dosed by CT surgery
Hypertension
- Increase amlodipine to 5 mg daily
- Continue Metop 25mg q12h
Post op new LBBB/IVCD
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 improving Cr
Splenic infarct, in setting of endocarditis
Thrombocytopenia/anemia
Suspected hx of opioid drug dependence and hx of depression
- Psych suggests buprenorphine at discharge be considered
Subjective: In a lot of pain. Unhappy with pain med regimen.
Data:
s/p mechanical AVR (25 mm On-X) s/p explant and redo AVR (23mm On-x), LVOT vegetation debridement, MV chordae vegetation resection and debridement c/b post op bleeding and re-exploration/venous bleeding and oozing from the sternum on 12/27/[address] Denney
Intraop post-op AMANDA 12/17/2024: normal LVEF, AoV with mean grad 11 mmHg, mil/mod MR
HEAD CT 12/31/24 . COMPARISON: 12/30/2024
The ventricles are normal in size, configuration, and position. The previously seen small areas of high attenuation suggesting subarachnoid hemorrhage or hemorrhagic septic emboli are either stable or decreased. There are no new similar findings.
There is no intra- or extra-axial mass,.. There is no midline shift nor mass effect. Visualized paranasal sinuses show minimal mucosal thickening of the right maxillary sinus.
IMPRESSION:
Improved or stable findings suggesting small foci of intracranial hemorrhage. No new pathology identified...
Physical Exam
Vital Signs/Labs
Vital Signs
Temp Pulse Resp BP Pulse Ox
97.9 F 77 20 151/92 93
01/02/25 07:05 01/02/25 07:52 01/02/25 07:05 01/02/25 07:52 01/02/25 07:37
01/01/25 01/02/25 01/03/25
06:59 06:59 06:59
Actual Weight 168 lb 10.458 oz 170 lb 13.732 oz
01/02/25 02:42
01/02/25 02:42
PT 39.6 Sec (11.4-14.6) H 01/02/25 02:42
INR 4.14 D 01/02/25 02:42
APTT 73.3 Sec (23.4-35.0) H 01/02/25 02:42
Magnesium 2.0 mg/dl (1.6-2.3) 12/31/24 04:53
Triglycerides Cancelled 01/01/25 12:16
LDL Cholesterol, Calc Cancelled 01/01/25 12:16
VLDL Cholesterol, Calc Cancelled 01/01/25 12:16
HDL Cholesterol Cancelled 01/01/25 12:16
Physical Exam
Constitutional: No acute distress
Cardiovascular: Rhythm & rate is regular, Pedal edema present and S1S2 is normal (AVR click)
Respiratory: Respiratory effort normal and Crackles Present
Neuro/Psych: AO x 3
Data Reviewed
-
Date of Service: January 02, 2025
Medical Decision Making: Reviewed Test Results, Independent Historian Assessment, Test Interpretation and Review of Case with other Provider
EKG: Tracing Personally Visualized and interpreted
Echo: Report Reviewed by me
Labs: Labs Reviewed by me
[2025-01-02] MEDS: STERILE WATER FOR INJECTION 20 ML IV ×2 (10:46→22:03)
[2025-01-02] MEDS: ROCEPHIN 2000 MG IV ×2 (10:46→22:02)
--- NOTE | 2025-01-02 12:37 | W.PN.NEPH.PH ---
Today's Communication / Plan
-
Ethacrynic acid and labs in am
Assessment/Plan
-
Impression:
CORNELIO
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
bleeding and re-exploration/venous bleeding and oozing from the sternum on 12/27/24
VDRF post op
Hyperkalemia
Septic brain emboli
Splenic infarct
Strep mutans bacteremia
Anemia
Thrombocytopenia
Anxiety/depression
History of obstructive uropathy due to nephrolithiasis with double-J stent
SAH
Plan:
Creatinine improving to 2.1 (2.6 on presentation)
non oliguric, off cortes
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
Previous serological workup was reviewed from [facility] notes: 4+ blood and 4+ albumin, neg urine eosinophil
Metabolic acidosis improved -will hold po bicarb
BP improving trend, meds adjusted per cards
will dose diuretic again since he remains hypervolemic still
labs in am
-
-
Date of Service: January 02, 2025
CC / HPI / ROS
-
Chief Complaint:
CORNELIO
History of Present Illness:
creatinine down at 2.1, off cortes
s/p AVR for IE on 12/27
Hemodynamically stable
exp aphasia (improving), stroke alert 12/28 and has CTA head and neck, new SAH noted , remains off AC
Review of Systems:
extubated 12/28
on NC o2
no cp or sob at rest
wants to go home
Labs
-
Labs:
WBC 8.7 10^3/uL (4.8-10.8) 01/02/25 02:42
RBC 3.12 10^6/uL (4.70-6.10) L 01/02/25 02:42
Hgb 9.0 g/dL (13.0-18.0) L 01/02/25 02:42
Hct 25.6 % (39.0-52.0) L 01/02/25 02:42
Plt Count 161 10^3/uL (130-400) 01/02/25 02:42
Sodium 134 mmol/L (135-145) L 01/02/25 02:42
Potassium 3.8 mmol/L (3.5-5.1) 01/02/25 02:42
Chloride 105 mmol/L (98-107) 01/02/25 02:42
Carbon Dioxide 25 mmol/L (22-30) 01/02/25 02:42
BUN 73 mg/dl (9-20) H 01/02/25 02:42
Creatinine 2.1 mg/dL (0.7-1.3) H 01/02/25 02:42
eGFR 37.64 01/02/25 02:42
Glucose 110 mg/dl (70-99) H 01/02/25 02:42
Calcium 7.9 mg/dl (8.4-10.2) L 01/02/25 02:42
Phosphorus 8.6 mg/dl (2.5-4.5) H 12/29/24 03:08
Albumin 2.0 g/dl (3.5-5.0) L 12/28/24 17:33
Physical Exam
-
Vital Signs:
Vital Signs
Temp Pulse Resp BP Pulse Ox
97.9 F 77 20 151/92 93
01/02/25 07:05 01/02/25 07:52 01/02/25 07:05 01/02/25 07:52 01/02/25 07:37
Cardiovascular:: Regular rate and rhythm (murmur)
Respiratory:: Bilateral: CTA (decreased)
Lung Excursion:: Normal
Abdomen:: Nontender
Bowel Sounds:: Decreased
Extremity Edema:: +1: Bilateral:
Cortes Catheter: No
[2025-01-02 13:23] LABS: PT 48.2 Sec (11.4-14.6)
[2025-01-02 13:32] LABS: INR 5.37
--- NOTE | 2025-01-02 13:38 | W.PN.ID1 ---
Date of Service
Date of Service: January 02, 2025
Today's Communication
Continue abx.
Assessment / Plan
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
Suspected septic emboli to the brain
Subarachnoid hemorrhage
Leukocytosis; improved
Renal insufficiency
Elevated ESR, CRP
HTN
DM type II
Nephrolithiasis
Recommendations:
Patient status post valve replacement (12/27/2024)
Continue ceftriaxone 2 g IV every 12 hours. Will need a 6 to 8-week course of therapy (in the treatment of both endocarditis and [employer] septic emboli) through 02/07 or 02/21.
May need repeat [employer] imaging to assess prior noted abnormalities.
Repeat blood cultures without growth.
Valve culture also shows growth of a GNR (on enrichment broth only). Await final identification.
����������������������������������������������������������
Chief Complaint
-: Other (Strep mutans endocarditis)
Subjective / Review of Systems
Review of Systems: No Fever and No Chills
Vital Signs / Physical Exam
Vital Signs
Vital Signs
Temp Pulse Resp BP Pulse Ox
97.9 F 76 20 131/92 92
01/02/25 07:05 01/02/25 12:34 01/02/25 07:05 01/02/25 12:34 01/02/25 10:53
Physical Exam
Constitutional: Comfortable, Acutely Ill and Non-toxic
Eyes: No Conjunctival Hemorrhage and Sclera Anicteric
Cardiovascular: Regular Rate, S1/S2 and Murmur; Negative S3/S4
Pulmonary: Coarse and Non Labored
Gastrointestinal: Soft, Non Tender and Non Distended
Extremities: Negative Splinter Hemorrhage or Janeway Lesions
Skin: Negative Rash or Jaundice
Wound: Other (sternal wound dressed)
Neurological: Awake and Alert
Psychological: Calm
Objective Data
Lab Data
Lab Results
01/02/25 02:42
01/02/25 02:42
ESR 58 mm/hour (0-20) H 12/29/24 03:08
PT 48.2 Sec (11.4-14.6) H 01/02/25 13:02
INR 5.37 H* 01/02/25 13:02
APTT 73.3 Sec (23.4-35.0) H 01/02/25 02:42
Estimated Creat Clear 43 ml/min 01/02/25 02:42
Lactic Acid 0.9 mmol/L (0.7-2.0) 12/28/24 03:11
Total Bilirubin 0.5 mg/dl (0.2-1.3) 12/28/24 17:33
AST 42 U/L (17-59) 12/28/24 17:33
ALT 14 U/L (0-50) 12/28/24 17:33
Alkaline Phosphatase 60 U/L (38-126) 12/28/24 17:33
C-Reactive Protein 48.80 mg/L (0.0-10.00) H 12/29/24 03:08
Most recent labs reviewed.
Micro Results:
12/30/24 11:06 Blood Culture - Preliminary
Blood/Venous No Growth in 72 hours- Final report to follow
12/31/24 10:54 Respiratory Culture - Final
Sputum Elaine albicans
Gram Stain - Final
12/27/24 17:06 Anaerobic Culture - Final
Heart NO ANAEROBES ISOLATED
12/30/24 10:20 Blood Culture - Preliminary
Blood/Venous No Growth in 72 hours- Final report to follow
12/27/24 17:14 Anaerobic Culture - Final
Heart NO ANAEROBES ISOLATED
12/27/24 17:14 Tissue Culture - Final
Heart No Growth After 72 Hours
Gram Stain - Final
12/27/24 17:06 Tissue Culture - Preliminary
Heart Gram negative bacilli
Gram Stain - Preliminary
12/27/24 12:38 Blood Culture - Final
Blood/Venous No Growth - Final Report
12/27/24 11:47 Blood Culture - Final
Blood/Venous No Growth - Final Report
12/30/24 10:10 Urine Culture - Final
Urine NO GROWTH
12/27/24 17:06 Fungal Culture - Preliminary
Heart Culture in progress.
Positive cultures are reported as soon as detected.
Final report to follow in four to five weeks.
12/27/24 17:14 Fungal Culture - Preliminary
Heart Culture in progress.
Positive cultures are reported as soon as detected.
Final report to follow in four to five weeks.
12/27/24 15:00 Urine Culture - Final
Urine NO GROWTH
12/27/24 05:31 MRSA Screen - Final
Nose No Methicillin Resistant Staphylococcus aureus isolated.
12/18/2024
11:00 Blood culture ([facility])
Streptococcus mutans
Ampicillin <= 0.25 S
Cefotaxime <=0.12 S
Ceftriaxone <= 0.12 S
Erythromycin <= 0.12 S
Levofloxacin =1 S
Linezolid <= 2 S
Moxifloxacin =0.25 S
Penicillin G <= 0.06 S
Vancomycin =1 S
Imaging:
12/29/2024 CT head without contrast: 'MULTIFOCAL ACUTE SUBARACHNOID HEMORRHAGE with a new small subarachnoid hemorrhage over the inferolateral margin of the right frontal lobe. Small acute subarachnoid hemorrhages in the sulci medial to the right
frontal lobe, anterior to the left frontal lobe, medial to the right parietal-occipital lobe, and posterior to the left parietal lobe which appear unchanged. Hemorrhagic septic emboli is a diagnostic consideration given the history of endocarditis.'
12/25/2024 MRI brain (performed at [facility]): Multiple cortical and subcortical foci of diminished signal intensity on susceptibility weighted sequences. The sequence suggest the presence of blood products. Concern raised for septic
emboli which can demonstrate ischemic changes resulting in restriction diffusion, as well as hemorrhagic damage to the brain. Multiple small embolic infarcts also in the differential. Contrast enhanced examination failed to demonstrate enhancing
lesions or venous filling defects or prominent venous structures thus leptomeningeal carcinomatosis or venous congestion is not consistent with this study. Linear appearing areas of non-FLAIR suppression and diminished signal on susceptibility
weighted sequences suggest associated possible subarachnoid hemorrhage within the bilateral occipital lobes. Please see full dictation for additional detail.
12/22/2024 ECHO (TTE): LV EF = 60%. Mildly dilated left atrium. Severe thickening of the anterior and posterior leaflets of the mitral valve, but without clear vegetations. Moderate sized (0.4 x 0.7 cm oscillating heterogeneous echodensity
attached to the noncoronary cusp. Aortic valve is thickened and calcified with mild to moderate eccentric aortic regurgitation.
[2025-01-02] MEDS: EDECRIN 50 MG IV (14:32)
--- NOTE | 2025-01-02 15:59 | CM ---
Reviewed chart. Mr. Kwan to IVU. Met with MrRoque and Mrs. Kwan to review discharge plans. We reviewed options for discharge. We reviewed Home infusion and SNF/Rehab. Telephone call to [facility] Liaison to check the iqbal pagan for home IV
ABX. Sent referral to [facility]. Also reviewed SNF/Rehab.. if a facility will accept. Referral made to [facility] to see if they can accept. They are agreeable to SNF/Rehab. if bed available. Medical work-up in progress. The discharge
plan is to go to SNF/Rehab, if bed available.
--- NOTE | 2025-01-02 18:39 | PTCARENOTE ---
pt sr on the monitor, hr in the 70s, vss. pt continues to c/o pain in sternum, bebo given as ordered, see MAR. Pt OOB for most of the day, ambulated in halls. tolerated well. at bedside to visit. pt educated on plan of care and pt verbalized
understanding. call quesada within reach.
[2025-01-02] MEDS: MUCINEX 600 MG PO (20:57)
[2025-01-02] MEDS: LOPRESSOR 50 MG PO (21:01)
[2025-01-02] MEDS: SENOKOT-S 1 TABLET PO (21:01)
[2025-01-02] MEDS: FLUSH (NSS) 1 FLUSH IV (21:02)
[2025-01-02] MEDS: NSS IV (21:06)
[2025-01-02] MEDS: REMOVE LIDOCAINE PATCH 1 PATCH REMOVE (21:06)
[2025-01-02] MEDS: KCL 40 MEQ PO (22:01)
[2025-01-02] MEDS: TYLENOL 1000 MG PO (22:02)
[2025-01-03] VITALS (11 sets, daily range): BP systolic 139–178; BP diastolic 69–100; PULSE 68; BMI 24.5
--- NOTE | 2025-01-03 01:44 | PTCARENOTE ---
Received pt at change of shift OOB in chair, at bedside. SR with 1st degree and BBB on tele, HR 60's-70's. Surgical sites C.D.I. pt reports sternal incision site pain of 10/10. PRN Gabriella administered--see SEP. Sternal precautions maintained, as
well as fall precautions. pt calls appropriately. Urinal at bedside. IS encouraged and pt performed with result of 1,000. Call quesada within reach.
[2025-01-03] MEDS: ROXICODONE 5 MG PO ×4 (04:47→20:49)
[2025-01-03] MEDS: TYLENOL 1000 MG PO ×3 (05:16→22:49)
[2025-01-03 05:19] LABS: Hematocrit 24.5 % (39.0-52.0); Hemoglobin 8.5 g/dL (13.0-18.0); Mean Corp Hgb Conc. 34.7 g/dL (33.0-37.0); Mean Corpuscular Volume 83.3 fL (80.0-94.0); Platelet Count 169 10^3/uL (130-400); Red Cell Dist. Width 18.4 % (11.5-14.5)
[2025-01-03 05:26] LABS: INR 3.91; PT 37.9 Sec (11.4-14.6)
[2025-01-03 05:27] LABS: APTT 49.9 Sec (23.4-35.0)
--- NOTE | 2025-01-03 05:37 | PTCARENOTE ---
pt states sternal incision pain of 10/10 that hasn't been relieved all night. pt did not update RN of pain overnight. CHG bath given this morning. pt OOB to chair with assistance of 2 and rw. daily weight obtained. pt urinated 550 of dark tea
colored urine.
[2025-01-03 05:44] LABS: Blood Urea Nitrogen 69 mg/dl (9-20); Calcium 7.8 mg/dl (8.4-10.2); Carbon Dioxide 24 mmol/L (22-30); Chloride 107 mmol/L (98-107); Estimated Creatinine Clearance 46 ml/min; Glucose 101 mg/dl (70-99); Magnesium 1.9 mg/dl (1.6-2.3); Potassium 4.1 mmol/L (3.5-5.1); Sodium 133 mmol/L (135-145); eGFR 39.91
--- NOTE | 2025-01-03 05:49 | W.PN.CT ---
Today's Communication / Plan
-
Plan:
-No major issues overnight. Hemodynamically and neurologically intact
-On Coumadin for On-X mechanical AVR. Coumadin currently on hold
-INR 3.91 today, was 5.37 yesterday
-Creatinine 2.0 today, peaked to 3.1. Nephrology is following
-Cont. Rocephin. ID following
-OOB into chair/Ambulate
-PT/OT f/u
-For SNF/Rehab placement likely Sunday
Assessment / Plan
-
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
and debridement, c/b post op bleeding from CT and re-exploration/venous bleeding and oozing from the sternum on 12/27/[address] Denney, POD #[phone]
Post-AMANDA: Normal biventricular function w/ LVEF 65%, well-seated AVR w/ mean gradient 11mmHg, normal washing jets. MV w/ MILD-to-mod regurgitation w/ improvement in preoperative RHONDA.
EKG 12/27/24 NSR 1st degree AVB
Radiology: CT Guys: Sm L pleural effusion, mod ascities, mod splenomegaly hypodense lesion upper pole of spleen concern for splenic infarct. MRI: 12/23/24 Multiple cortical and subcortical foci concern for septic emboli which can demonstrate
ischemic changes with restricted diffusion as well as hemorrhagic damage to the brain. Linear areas of non flair suppression and diminished signal suggest possible subarachnoid hemorrhage
Echo 12/22/24 EF 60-65, mild LVH, mildly dilated LA, severe thickening of anterior and posterior mitral leaflets,mild-mod MR, mod sized 0.4 x 0/7 oscillating heterogeneous echodensity attahced to noncoronary cusp, mild-mod AR, PG 23.5/MG 13.1, small
pericardial effusion
Assessment:
-Strep Mutans AV endocarditis
-Acute hypoxic respiratory failure
-Strep Mutans bacteremia
-moderate AI
-moderate MR with RHONDA
-metastatic septic emboli to the brain, spleen
-oliguric CORNELIO on probable CKD IIIb
-Renal calculi
-coagulopathy
-transfusion dependent anemia
-thrombocytopenia
-unintentional weight loss
-dental cap dislodgement
-possible left mandibular canine abscess, per panelipse 12/27
-Panelipse from 12/27 showed suspicious lesion on the left mandibular canine concerning for possible abscess, seen by [facility] 12/29 and determined to be unremarkable, no intervention needed, outpt f/u
-hx anxiety/depression
-hx HTN
-hx opioid addiction per , prescribed for management of recurrent renal stones and escalated after his father's approx. 2 yrs ago (on Buprenorphine preop)
-Acute postop blood loss Anemia on probable Anemia of Chronic CKD (transfused 3u PRBC's, 2u FFPs)
-Acute postop thrombocytopenia (transfused 2 {5pks}of plts)
-Acute postop VDRF/hypoxemia
-Acute postop atelectasis
-Acute postop hypovolemia with subsequent hypervolemia
-Acute postop SAH involving frontal lobe, right parietal occipital lobe and left parietal lobe
-Acute postop suspected Hemorrhagic septic emboli
-Acute CORNELIO on suspected CKD
-Acute postop metabolic acidosis
-Acute postop hyponatremia
-
Discussed patient care with: Cardiology, Nursing, Respiratory Therapy, Pharmacy and Care Team
Subjective
-
Date of Service: January 03, 2025
Pt c/o mild incisional pain, otherwise feels well
Objective Data
-
Lab Results
01/03/25 04:42
01/03/25 04:42
PT 37.9 Sec (11.4-14.6) H 01/03/25 04:42
INR 3.91 01/03/25 04:42
APTT 49.9 Sec (23.4-35.0) H 01/03/25 04:42
Vital Signs
Vital Signs
Temp Pulse Resp BP Pulse Ox
98.0 F 65 18 154/90 95
01/03/25 04:37 01/03/25 01:00 01/03/25 04:37 01/02/25 22:26 01/03/25 04:37
CT Intake/Output/Weight
01/02/25 01/02/25 01/03/25
06:59 18:59 06:59
Intake Total 344.5 / 824.5 480 / 824.5
Output Total 750 / 750
Balance 344.5 / 74.5 -270 / 74.5
SaO2: 95 (RA)
Physical Exam
-
General: Awake, Oriented and AOx3
Cardiovascular: Regular rate & rhythm, No Murmurs and No Gallop
Respiratory: Decreased Breath Sounds (at bases, otherwise clear)
Sternum: Stable
Incision: Clean, Dry, Intact and Dressing Intact
Extremities: Other (+trace edema)
Data Reviewed
-
Lab Results: Results Reviewed
Medications: Active Meds Reviewed
Chest X-Ray: Report Reviewed and Image Reviewed
ECG: Report Reviewed and Image Reviewed
--- NOTE | 2025-01-03 09:02 | W.PN.ID1 ---
Date of Service
Date of Service: January 03, 2025
Today's Communication
Replace ceftriaxone with Ertapenem 1g IV q 24h x 6 weeks through 02/14/25.
Assessment / Plan
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
Suspected septic emboli to the brain
Subarachnoid hemorrhage
Leukocytosis; improved
Renal insufficiency
Elevated ESR, CRP
HTN
DM type II
Nephrolithiasis
Recommendations:
Repeat blood cultures without growth.
Patient status post valve replacement (12/27/2024)
Aortic valve cx: Enterobacter cloacae (on enrichment broth only) - possibly contaminant.
To err on side of caution, replace ceftriaxone with Ertapenem 1g IV q 24h x 6 weeks through 02/14/25.
Will submit new Infusion Sheet to Case Management on Sunday.
���������������������������������������������������������
Chief Complaint
-: Other (Strep mutans endocarditis)
Subjective / Review of Systems
Tolerating abx. Feels well.
Vital Signs / Physical Exam
Vital Signs
Vital Signs
Temp Pulse Resp BP Pulse Ox
98.0 F 70 18 154/90 95
01/03/25 07:17 01/03/25 07:17 01/03/25 07:17 01/02/25 22:26 01/03/25 07:17
Physical Exam
Constitutional: Comfortable, Acutely Ill and Non-toxic
Eyes: No Conjunctival Hemorrhage and Sclera Anicteric
Cardiovascular: Regular Rate, S1/S2 and Murmur
Pulmonary: Coarse and Non Labored
Gastrointestinal: Soft, Non Tender and Non Distended
Extremities: Negative Splinter Hemorrhage or Janeway Lesions
Wound: Other (sternal wound dressed)
Neurological: AO x 3
Lines: PICC (RUE no erythema)
Objective Data
Lab Data
Lab Results
01/03/25 04:42
06/21/25 04:42
ESR 58 mm/hour (0-20) H 12/29/24 03:08
PT 37.9 Sec (11.4-14.6) H 01/03/25 04:42
INR 3.91 01/03/25 04:42
APTT 49.9 Sec (23.4-35.0) H 01/03/25 04:42
Estimated Creat Clear 46 ml/min 01/03/25 04:42
Lactic Acid 0.9 mmol/L (0.7-2.0) 12/28/24 03:11
Total Bilirubin 0.5 mg/dl (0.2-1.3) 12/28/24 17:33
AST 42 U/L (17-59) 12/28/24 17:33
ALT 14 U/L (0-50) 12/28/24 17:33
Alkaline Phosphatase 60 U/L (38-126) 12/28/24 17:33
C-Reactive Protein 48.80 mg/L (0.0-10.00) H 12/29/24 03:08
Most recent labs reviewed.
Micro Results:
12/27/24 17:06 Tissue Culture - Final
Heart Enterobacter cloacae
Gram Stain - Final
12/30/24 11:06 Blood Culture - Preliminary
Blood/Venous No Growth in 72 hours- Final report to follow
12/31/24 10:54 Respiratory Culture - Final
Sputum Elaine albicans
Gram Stain - Final
12/27/24 17:06 Anaerobic Culture - Final
Heart NO ANAEROBES ISOLATED
12/30/24 10:20 Blood Culture - Preliminary
Blood/Venous No Growth in 72 hours- Final report to follow
12/27/24 17:14 Anaerobic Culture - Final
Heart NO ANAEROBES ISOLATED
12/27/24 17:14 Tissue Culture - Final
Heart No Growth After 72 Hours
Gram Stain - Final
12/27/24 12:38 Blood Culture - Final
Blood/Venous No Growth - Final Report
12/27/24 11:47 Blood Culture - Final
Blood/Venous No Growth - Final Report
12/30/24 10:10 Urine Culture - Final
Urine NO GROWTH
12/27/24 17:06 Fungal Culture - Preliminary
Heart Culture in progress.
Positive cultures are reported as soon as detected.
Final report to follow in four to five weeks.
12/27/24 17:14 Fungal Culture - Preliminary
Heart Culture in progress.
Positive cultures are reported as soon as detected.
Final report to follow in four to five weeks.
12/27/24 15:00 Urine Culture - Final
Urine NO GROWTH
12/27/24 05:31 MRSA Screen - Final
Nose No Methicillin Resistant Staphylococcus aureus isolated.
12/18/2024
11:00 Blood culture ([facility])
Streptococcus mutans
Ampicillin <= 0.25 S
Cefotaxime <=0.12 S
Ceftriaxone <= 0.12 S
Erythromycin <= 0.12 S
Levofloxacin =1 S
Linezolid <= 2 S
Moxifloxacin =0.25 S
Penicillin G <= 0.06 S
Vancomycin =1 S
Imaging:
12/29/2024 CT head without contrast: 'MULTIFOCAL ACUTE SUBARACHNOID HEMORRHAGE with a new small subarachnoid hemorrhage over the inferolateral margin of the right frontal lobe. Small acute subarachnoid hemorrhages in the sulci medial to the right
frontal lobe, anterior to the left frontal lobe, medial to the right parietal-occipital lobe, and posterior to the left parietal lobe which appear unchanged. Hemorrhagic septic emboli is a diagnostic consideration given the history of endocarditis.'
12/25/2024 MRI brain (performed at [facility]): Multiple cortical and subcortical foci of diminished signal intensity on susceptibility weighted sequences. The sequence suggest the presence of blood products. Concern raised for septic
emboli which can demonstrate ischemic changes resulting in restriction diffusion, as well as hemorrhagic damage to the brain. Multiple small embolic infarcts also in the differential. Contrast enhanced examination failed to demonstrate enhancing
lesions or venous filling defects or prominent venous structures thus leptomeningeal carcinomatosis or venous congestion is not consistent with this study. Linear appearing areas of non-FLAIR suppression and diminished signal on susceptibility
weighted sequences suggest associated possible subarachnoid hemorrhage within the bilateral occipital lobes. Please see full dictation for additional detail.
12/22/2024 ECHO (TTE): LV EF = 60%. Mildly dilated left atrium. Severe thickening of the anterior and posterior leaflets of the mitral valve, but without clear vegetations. Moderate sized (0.4 x 0.7 cm oscillating heterogeneous echodensity
attached to the noncoronary cusp. Aortic valve is thickened and calcified with mild to moderate eccentric aortic regurgitation.
[2025-01-03] MEDS: PROZAC 40 MG PO (09:05)
[2025-01-03] MEDS: NORVASC 10 MG PO (09:05)
[2025-01-03] MEDS: PROTONIX 40 MG PO (09:06)
[2025-01-03] MEDS: NEURONTIN 300 MG PO ×2 (09:07→20:25)
[2025-01-03] MEDS: MUCINEX 600 MG PO ×2 (09:08→20:24)
[2025-01-03] MEDS: PACERONE 200 MG PO ×3 (09:09→22:48)
[2025-01-03] MEDS: LOW STRENGTH ASPIRIN 81 MG PO (09:10)
[2025-01-03] MEDS: LIDOCAINE 4% PATCH 1 PATCH TOPICAL (09:10)
[2025-01-03] MEDS: LOPRESSOR 50 MG PO ×2 (09:10→20:24)
[2025-01-03] MEDS: SENOKOT-S PO ×2 (09:12→20:24)
[2025-01-03] MEDS: SUBUTEX SL (09:12)
[2025-01-03] MEDS: ROCEPHIN 2000 MG IV (09:14)
[2025-01-03] MEDS: STERILE WATER FOR INJECTION 20 ML IV (09:14)
--- NOTE | 2025-01-03 10:39 | W.PN.NEPH.PH ---
Today's Communication / Plan
-
diuresis
Assessment/Plan
-
Impression:
CORNELIO
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
bleeding and re-exploration/venous bleeding and oozing from the sternum on 12/27/24
VDRF post op
Hyperkalemia
Septic brain emboli
Splenic infarct
Strep mutans bacteremia
Anemia
Thrombocytopenia
Anxiety/depression
History of obstructive uropathy due to nephrolithiasis with double-J stent
SAH
Plan:
Creatinine improving to 2 (2.6 on presentation)
non oliguric, off cortes
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
Previous serological workup was reviewed from [facility] notes: 4+ blood and 4+ albumin, neg urine eosinophil
BP stable on meds
will dose diuretic again since he remains hypervolemic still and no change in wt
start ethacrynic acid 50mg po BID
labs in am
-
-
Date of Service: January 03, 2025
CC / HPI / ROS
-
Chief Complaint:
CORNELIO
History of Present Illness:
creatinine down at 2,
s/p AVR for IE on 12/27
Hemodynamically stable
exp aphasia (improving), stroke alert 12/28 and has CTA head and neck, new SAH noted , remains off AC
no fever, hb sable 8.5
Review of Systems:
off O2
no cp or sob at rest
no abd pain
Labs
-
Labs:
WBC 8.2 10^3/uL (4.8-10.8) 01/03/25 04:42
RBC 2.94 10^6/uL (4.70-6.10) L 01/03/25 04:42
Hgb 8.5 g/dL (13.0-18.0) L 01/03/25 04:42
Hct 24.5 % (39.0-52.0) L 01/03/25 04:42
Plt Count 169 10^3/uL (130-400) 01/03/25 04:42
Sodium 133 mmol/L (135-145) L 01/03/25 04:42
Potassium 4.1 mmol/L (3.5-5.1) 01/03/25 04:42
Chloride 107 mmol/L (98-107) 01/03/25 04:42
Carbon Dioxide 24 mmol/L (22-30) 01/03/25 04:42
BUN 69 mg/dl (9-20) H 01/03/25 04:42
Creatinine 2.0 mg/dL (0.7-1.3) H 01/03/25 04:42
eGFR 39.91 01/03/25 04:42
Glucose 101 mg/dl (70-99) H 01/03/25 04:42
Calcium 7.8 mg/dl (8.4-10.2) L 01/03/25 04:42
Phosphorus 8.6 mg/dl (2.5-4.5) H 12/29/24 03:08
Albumin 2.0 g/dl (3.5-5.0) L 12/28/24 17:33
Physical Exam
-
Vital Signs:
Vital Signs
Temp Pulse Resp BP Pulse Ox
98.0 F 74 18 139/84 95
01/03/25 07:17 01/03/25 09:10 01/03/25 07:17 01/03/25 09:10 01/03/25 07:17
Cardiovascular:: Regular rate and rhythm (murmur)
Respiratory:: Bilateral: CTA (decreased)
Lung Excursion:: Normal
Abdomen:: Nontender
Bowel Sounds:: Decreased
Extremity Edema:: +2: Bilateral:
Cortes Catheter: No
[2025-01-03] MEDS: INVANZ 60 MG IV (11:17)
[2025-01-03] MEDS: KEPPRA 500 MG IV ×2 (11:18→20:16)
--- NOTE | 2025-01-03 11:18 | W.PN.UPDATE ---
Update Note
Progress Note Update
Pt seen, reviewed with nursing staff. Pt sitting up in chair, alert and oriented, calm and cooperative. Affect/mood stable. Pt refused Subutex yesterday and today; states he hasn't been taking it when asked, last filled Rx from PCP 11/12 per PDMP.
Nursing staff concerned about pt's oxycodone prn, reportedly always rate his pain 10/10 though does not appear in acute distress. Pt taking home med Prozac, denies issues with this. Sodium 134 yesterday, 133 today.
Imp: TME, resolving
Unspecified depression, anxiety, stable on existing medications
Unclear hx regarding opioid use, prescribed Subutex by PCP- reportedly not taking recently
Rec: continue home meds Prozac, Xanax prn. Steadily taper opioid pain medication; will leave Subutex order in place for now and consider stopping
Will follow
[2025-01-03] MEDS: FLUSH (NSS) 1 FLUSH IV (13:45)
[2025-01-03] MEDS: EDECRIN 50 MG IV (13:45)
[2025-01-03] MEDS: XANAX 0.5 MG PO ×2 (13:47→22:52)
[2025-01-03] MEDS: EDECRIN 50 MG PO (16:42)
--- NOTE | 2025-01-03 19:13 | PTCARENOTE ---
pt continues to c/o of 7/10 CP at sternal site. pt is sr on the monitor, hr in the 60s, vss. bebo given as ordered. pt also asked for 'something for panic attacks,' Xanax given as ordered. pt was OOB to chair for the morning but said he was 'to
weak' to get up for dinner. pt resting in bed sleeping for most of the afternoon. has been calling and rn giving updates. pt offers no other complaints at this time. pt educated on plan of care and pt verbalized understanding. call quesada within
reach.
[2025-01-03] MEDS: NSS IV (20:06)
[2025-01-03] MEDS: STERILE WATER FOR INJECTION IV (20:09)
[2025-01-03] MEDS: REMOVE LIDOCAINE PATCH 1 PATCH REMOVE (20:16)
[2025-01-03] MEDS: KCL 20 MEQ PO (20:24)
[2025-01-03] MEDS: MAGNESIUM OXIDE 500 MG PO (20:24)
--- NOTE | 2025-01-03 22:30 | PTCARENOTE ---
Patient received at change of shift resting in the bed. Neurological check WDL. NIH zero. Sinus rhythm with first degree AV block, BBB, and prolonged QT on telemetry. The patient reports ten out of ten pain at his sternal incision, PRN oxycodone
administered, see MAR. Upon reassessment of pain the patient was noted to be asleep. The patient was asking for his home medication, Ambien, which is not presently ordered. The patient reports being unable to sleep but has been noted to be sleeping
between care. Spoke with CT surgery PAViridianaC will review with patient his current medications. RUE single lumen PICC intact, blood return noted. Plan of care discussed including sternal precautions. Call quesada within reach. Care ongoing.
[2025-01-04] VITALS (8 sets, daily range): BP systolic 146–164; BP diastolic 84–92; PULSE 66; O2SAT 95; BMI 23.1; BMI 24.6
[2025-01-04] MEDS: ROXICODONE 5 MG PO ×3 (03:26→22:52)
[2025-01-04 04:23] LABS: INR 2.39; PT 26.1 Sec (11.4-14.6)
[2025-01-04 04:32] LABS: Blood Urea Nitrogen 68 mg/dl (9-20); Calcium 7.9 mg/dl (8.4-10.2); Carbon Dioxide 24 mmol/L (22-30); Chloride 109 mmol/L (98-107); Estimated Creatinine Clearance 48 ml/min; Glucose 111 mg/dl (70-99); Magnesium 1.8 mg/dl (1.6-2.3); Potassium 4.3 mmol/L (3.5-5.1); Sodium 138 mmol/L (135-145); eGFR 42.44
[2025-01-04] MEDS: TYLENOL PO ×2 (05:57→14:32)
--- NOTE | 2025-01-04 06:01 | W.PN.CT ---
Today's Communication / Plan
-
Plan:
-No major issues overnight. Hemodynamically and neurologically intact
-On Coumadin for On-X mechanical AVR. Coumadin currently on hold
-INR 2.39, was 3.91 yesterday
-Creatinine 1.9 was 2.0 yesterday, peaked to 3.1. Was 2.7 preop. Nephrology is following
-Cont. antibiotics per ID, Rocephin switched to Ertapenem
-On Ethacrynic Acid for diuresis given sulfa allergy, Nephrology following
-Replete electrolytes
-OOB into chair/Ambulate
-PT/OT f/u
-For SNF/Rehab placement likely Sunday
Assessment / Plan
-
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
and debridement, c/b post op bleeding from CT and re-exploration/venous bleeding and oozing from the sternum on 12/27/[address] Denney, POD #8
Post-AMANDA: Normal biventricular function w/ LVEF 65%, well-seated AVR w/ mean gradient 11mmHg, normal washing jets. MV w/ MILD-to-mod regurgitation w/ improvement in preoperative RHONDA.
EKG 12/27/24 NSR 1st degree AVB
Radiology: CT Thomson: Sm L pleural effusion, mod ascities, mod splenomegaly hypodense lesion upper pole of spleen concern for splenic infarct. MRI: 12/23/24 Multiple cortical and subcortical foci concern for septic emboli which can demonstrate
ischemic changes with restricted diffusion as well as hemorrhagic damage to the brain. Linear areas of non flair suppression and diminished signal suggest possible subarachnoid hemorrhage
Echo 12/22/24 EF 60-65, mild LVH, mildly dilated LA, severe thickening of anterior and posterior mitral leaflets,mild-mod MR, mod sized 0.4 x 0/7 oscillating heterogeneous echodensity attahced to noncoronary cusp, mild-mod AR, PG 23.5/MG 13.1, small
pericardial effusion
Assessment:
-Strep Mutans AV endocarditis
-Acute hypoxic respiratory failure
-Strep Mutans bacteremia
-moderate AI
-moderate MR with RHONDA
-metastatic septic emboli to the brain, spleen
-oliguric CORNELIO on probable CKD IIIb
-Renal calculi
-coagulopathy
-transfusion dependent anemia
-thrombocytopenia
-unintentional weight loss
-dental cap dislodgement
-possible left mandibular canine abscess, per panelipse 12/27
-Panelipse from 12/27 showed suspicious lesion on the left mandibular canine concerning for possible abscess, seen by OMF 12/29 and determined to be unremarkable, no intervention needed, outpt f/u
-hx anxiety/depression
-hx HTN
-hx opioid addiction per , prescribed for management of recurrent renal stones and escalated after his father's approx. 2 yrs ago (on Buprenorphine preop)
-Acute postop blood loss Anemia on probable Anemia of Chronic CKD (transfused 3u PRBC's, 2u FFPs)
-Acute postop thrombocytopenia (transfused 2 {5pks}of plts)
-Acute postop VDRF/hypoxemia
-Acute postop atelectasis
-Acute postop hypovolemia with subsequent hypervolemia
-Acute postop SAH involving frontal lobe, right parietal occipital lobe and left parietal lobe
-Acute postop suspected Hemorrhagic septic emboli
-Acute CORNELIO on suspected CKD
-Acute postop metabolic acidosis
-Acute postop hyponatremia
-
Discussed patient care with: Cardiology, Nursing, Respiratory Therapy, Pharmacy and Care Team
Subjective
-
Date of Service: January 04, 2025
C/O incisional pain, otherwise feels well
Objective Data
-
Lab Results
01/03/25 04:42
01/04/25 03:55
PT 26.1 Sec (11.4-14.6) H 01/04/25 03:55
INR 2.39 01/04/25 03:55
APTT 49.9 Sec (23.4-35.0) H 01/03/25 04:42
Vital Signs
Vital Signs
Temp Pulse Resp BP Pulse Ox
98.1 F 62 14 152/86 92
01/04/25 03:24 01/04/25 05:00 01/04/25 03:24 01/04/25 03:24 01/04/25 03:24
CT Intake/Output/Weight
01/03/25 01/03/25 01/04/25
06:59 18:59 06:59
Intake Total 480 / 1064.5 480 / 480
Output Total 750 / 1150 450 / 550 100 / 550
Balance -270 / -85.5 30 / -70 -100 / -70
SaO2: 92 (RA)
Physical Exam
-
General: Awake, Oriented and AOx3
Cardiovascular: Regular rate & rhythm, No Murmurs, No Rub and No Gallop
Respiratory: Decreased Breath Sounds (at bases, otherwise clear)
Sternum: Stable
Incision: Clean, Dry, Intact and Dressing Intact
Extremities: Other (+trace edema)
Data Reviewed
-
Lab Results: Results Reviewed
Medications: Active Meds Reviewed
Chest X-Ray: Report Reviewed and Image Reviewed
ECG: Report Reviewed and Image Reviewed
--- NOTE | 2025-01-04 09:32 | VATNOTE ---
During routine assessment of PICC line, it was noted that R forearm (the arm in which the PICC is located) appeared to be larger than the patient's L forearm. Discussed with PCN who believes swelling has generally decreased since , however,
R arm has been more swollen throughout stay. Venous doppler of R arm recommended at this time to r/o presence of clot causing swelling.
[2025-01-04] MEDS: EDECRIN 50 MG PO ×2 (09:33→16:40)
[2025-01-04] MEDS: KCL 20 MEQ PO (09:34)
[2025-01-04] MEDS: LIDOCAINE 4% PATCH TOPICAL ×2 (09:34→10:08)
[2025-01-04] MEDS: MAGNESIUM OXIDE 500 MG PO ×2 (09:35→20:21)
[2025-01-04] MEDS: LOW STRENGTH ASPIRIN 81 MG PO (09:35)
[2025-01-04] MEDS: LOPRESSOR 50 MG PO ×2 (09:35→20:21)
[2025-01-04] MEDS: MUCINEX 600 MG PO ×2 (09:36→20:21)
[2025-01-04] MEDS: NEURONTIN 300 MG PO ×2 (09:36→20:20)
[2025-01-04] MEDS: NORVASC 10 MG PO (09:36)
[2025-01-04] MEDS: PACERONE 200 MG PO ×3 (09:36→22:52)
[2025-01-04] MEDS: PROTONIX 40 MG PO (09:37)
[2025-01-04] MEDS: PROZAC 40 MG PO (09:37)
[2025-01-04] MEDS: SENOKOT-S PO ×2 (09:38→20:10)
[2025-01-04] MEDS: SUBUTEX SL (09:38)
[2025-01-04] MEDS: INVANZ 60 MG IV (09:39)
[2025-01-04] MEDS: STERILE WATER FOR INJECTION IV ×2 (09:39→20:09)
[2025-01-04] MEDS: FLUSH (NSS) 2 FLUSH IV (09:40)
--- NOTE | 2025-01-04 10:37 | PTCARENOTE ---
Received patient this morning sitting oob in the chair. VAT felt that RUE was more edematous than left, but she had not seen the patient before. UE edema is much improved since I last saw him on 01.01. Notified CT surgery GENERAL UTILITY WORKER who also evaluated the
patient's RUE, no further orders at this time. Patient ate breakfast and medications given, patient refusing lidoderm patch and subutex this morning. Continues to complaining of severe pain at incision and being 'so tired'. Slumped back in the
recliner, requires much encouragement to sit upright, take deep breaths. Ambulated in the room with the rolling walker, stand by assist but threatening that he was too tired and was afraid he would fall if we did not return him to the chair, wanted
to go back to bed. Sitting in the chair, call quesada in reach.
--- NOTE | 2025-01-04 10:37 | W.PN.ID1 ---
Date of Service
Date of Service: January 04, 2025
Today's Communication
Continue Ertapenem x 6 weeks.
Assessment / Plan
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
Suspected septic emboli to the brain
Subarachnoid hemorrhage
Leukocytosis; improved
Renal insufficiency
Elevated ESR, CRP
HTN
DM type II
Nephrolithiasis
Recommendations:
Repeat blood cultures without growth.
Patient status post valve replacement (12/27/2024)
Aortic valve cx: Enterobacter cloacae (on enrichment broth only) - possibly contaminant.
To err on side of caution, treat both S. mutans and E. cloacae with Ertapenem 1g IV q 24h x 6 weeks through 02/14/25.
Follow weekly CBC with diff, CMP.
Infusion sheet placed in chart. .
���������������������������������������������������������
Chief Complaint
-: Other (Strep mutans endocarditis)
Subjective / Review of Systems
No new complaints
Vital Signs / Physical Exam
Vital Signs
Vital Signs
Temp Pulse Resp BP Pulse Ox
97.9 F 65 20 152/86 94
01/04/25 08:57 01/04/25 08:00 01/04/25 08:57 01/04/25 03:24 01/04/25 08:57
Physical Exam
Constitutional: No Acute Distress
Eyes: No Conjunctival Hemorrhage and Sclera Anicteric
Cardiovascular: Regular Rate, S1/S2 and Murmur
Pulmonary: Coarse and Non Labored
Gastrointestinal: Soft, Non Tender and Non Distended
Extremities: Negative Splinter Hemorrhage or Janeway Lesions
Wound: Other (sternal wound dressed)
Neurological: AO x 3
Lines: PICC (RUE no erythema)
Objective Data
Lab Data
Lab Results
01/03/25 04:42
01/04/25 03:55
ESR 58 mm/hour (0-20) H 12/29/24 03:08
PT 26.1 Sec (11.4-14.6) H 01/04/25 03:55
INR 2.39 01/04/25 03:55
APTT 49.9 Sec (23.4-35.0) H 01/03/25 04:42
Estimated Creat Clear 48 ml/min 01/04/25 03:55
Lactic Acid 0.9 mmol/L (0.7-2.0) 12/28/24 03:11
Total Bilirubin 0.5 mg/dl (0.2-1.3) 12/28/24 17:33
AST 42 U/L (17-59) 12/28/24 17:33
ALT 14 U/L (0-50) 12/28/24 17:33
Alkaline Phosphatase 60 U/L (38-126) 12/28/24 17:33
C-Reactive Protein 48.80 mg/L (0.0-10.00) H 12/29/24 03:08
Most recent labs reviewed.
Micro Results:
12/30/24 10:20 Blood Culture - Final
Blood/Venous No Growth - Final Report
12/30/24 11:06 Blood Culture - Preliminary
Blood/Venous No Growth in 4 days- Final report to follow
12/27/24 17:06 Tissue Culture - Final
Heart Enterobacter cloacae
Gram Stain - Final
12/31/24 10:54 Respiratory Culture - Final
Sputum Elaine albicans
Gram Stain - Final
12/27/24 17:06 Anaerobic Culture - Final
Heart NO ANAEROBES ISOLATED
12/27/24 17:14 Anaerobic Culture - Final
Heart NO ANAEROBES ISOLATED
12/27/24 17:14 Tissue Culture - Final
Heart No Growth After 72 Hours
Gram Stain - Final
12/27/24 12:38 Blood Culture - Final
Blood/Venous No Growth - Final Report
12/27/24 11:47 Blood Culture - Final
Blood/Venous No Growth - Final Report
12/30/24 10:10 Urine Culture - Final
Urine NO GROWTH
12/27/24 17:06 Fungal Culture - Preliminary
Heart Culture in progress.
Positive cultures are reported as soon as detected.
Final report to follow in four to five weeks.
12/27/24 17:14 Fungal Culture - Preliminary
Heart Culture in progress.
Positive cultures are reported as soon as detected.
Final report to follow in four to five weeks.
12/27/24 15:00 Urine Culture - Final
Urine NO GROWTH
12/27/24 05:31 MRSA Screen - Final
Nose No Methicillin Resistant Staphylococcus aureus isolated.
12/18/2024
11:00 Blood culture ([facility])
Streptococcus mutans
Ampicillin <= 0.25 S
Cefotaxime <=0.12 S
Ceftriaxone <= 0.12 S
Erythromycin <= 0.12 S
Levofloxacin =1 S
Linezolid <= 2 S
Moxifloxacin =0.25 S
Penicillin G <= 0.06 S
Vancomycin =1 S
Imaging:
12/29/2024 CT head without contrast: 'MULTIFOCAL ACUTE SUBARACHNOID HEMORRHAGE with a new small subarachnoid hemorrhage over the inferolateral margin of the right frontal lobe. Small acute subarachnoid hemorrhages in the sulci medial to the right
frontal lobe, anterior to the left frontal lobe, medial to the right parietal-occipital lobe, and posterior to the left parietal lobe which appear unchanged. Hemorrhagic septic emboli is a diagnostic consideration given the history of endocarditis.'
12/25/2024 MRI brain (performed at [facility]): Multiple cortical and subcortical foci of diminished signal intensity on susceptibility weighted sequences. The sequence suggest the presence of blood products. Concern raised for septic
emboli which can demonstrate ischemic changes resulting in restriction diffusion, as well as hemorrhagic damage to the brain. Multiple small embolic infarcts also in the differential. Contrast enhanced examination failed to demonstrate enhancing
lesions or venous filling defects or prominent venous structures thus leptomeningeal carcinomatosis or venous congestion is not consistent with this study. Linear appearing areas of non-FLAIR suppression and diminished signal on susceptibility
weighted sequences suggest associated possible subarachnoid hemorrhage within the bilateral occipital lobes. Please see full dictation for additional detail.
12/22/2024 ECHO ([facility]): LV EF = 60%. Mildly dilated left atrium. Severe thickening of the anterior and posterior leaflets of the mitral valve, but without clear vegetations. Moderate sized (0.4 x 0.7 cm oscillating heterogeneous echodensity
attached to the noncoronary cusp. Aortic valve is thickened and calcified with mild to moderate eccentric aortic regurgitation.
--- NOTE | 2025-01-04 10:53 | W.PN.NEPH.PH ---
Today's Communication / Plan
-
cont diuretic
Assessment/Plan
-
Impression:
CORNELIO
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
bleeding and re-exploration/venous bleeding and oozing from the sternum on 12/27/24
VDRF post op
Hyperkalemia
Septic brain emboli
Splenic infarct
Strep mutans bacteremia
Anemia
Thrombocytopenia
Anxiety/depression
History of obstructive uropathy due to nephrolithiasis with double-J stent
SAH
Plan:
Creatinine improving to 1.9
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
Previous serological workup was reviewed from [facility]
UA notes: 4+ blood and 4+ albumin, neg urine eosinophil
BP stable on meds
cont diuretic - ethacrynic acid 50mg po BID
wt is down but still with edema
labs in am
-
-
Date of Service: January 04, 2025
CC / HPI / ROS
-
Chief Complaint:
CORNELIO
History of Present Illness:
creatinine down at 1.9
s/p AVR for IE on 12/27
Hemodynamically stable
exp aphasia (improving), stroke alert 12/28 and has CTA head and neck, new SAH noted , remains off AC
no fever, hb sable 8.5
Review of Systems:
off O2
no cp or sob at rest
no abd pain
Labs
-
Labs:
WBC 8.2 10^3/uL (4.8-10.8) 01/03/25 04:42
RBC 2.94 10^6/uL (4.70-6.10) L 01/03/25 04:42
Hgb 8.5 g/dL (13.0-18.0) L 01/03/25 04:42
Hct 24.5 % (39.0-52.0) L 01/03/25 04:42
Plt Count 169 10^3/uL (130-400) 01/03/25 04:42
Sodium 138 mmol/L (135-145) 01/04/25 03:55
Potassium 4.3 mmol/L (3.5-5.1) 01/04/25 03:55
Chloride 109 mmol/L (98-107) H 01/04/25 03:55
Carbon Dioxide 24 mmol/L (22-30) 01/04/25 03:55
BUN 68 mg/dl (9-20) H 01/04/25 03:55
Creatinine 1.9 mg/dL (0.7-1.3) H 01/04/25 03:55
eGFR 42.44 01/04/25 03:55
Glucose 111 mg/dl (70-99) H 01/04/25 03:55
Calcium 7.9 mg/dl (8.4-10.2) L 01/04/25 03:55
Phosphorus 8.6 mg/dl (2.5-4.5) H 12/29/24 03:08
Albumin 2.0 g/dl (3.5-5.0) L 12/28/24 17:33
Physical Exam
-
Vital Signs:
Vital Signs
Temp Pulse Resp BP Pulse Ox
98 F 66 20 164/88 94
01/04/25 11:11 01/04/25 11:42 01/04/25 11:11 01/04/25 11:42 01/04/25 11:11
Cardiovascular:: Regular rate and rhythm (murmur)
Respiratory:: Bilateral: CTA (decreased)
Lung Excursion:: Normal
Abdomen:: Nontender and Soft
Bowel Sounds:: Decreased
Extremity Edema:: +2: Bilateral:
Junior Catheter: No
[2025-01-04] MEDS: KEPPRA 500 MG IV ×2 (10:56→20:20)
--- NOTE | 2025-01-04 12:10 | W.PN.UPDATE ---
Update Note
Progress Note Update
patient seen chart reviewed. spoke with nursing and with PT. it seems patient has moments where he is frustrated and overwhelmed by his illness. he needs a lot of encouragement to help himself and be more active. i saw him after both of the
aforementioned staff members and he seems to have internalized their messages to him that he needs to do the work of getting better and hopefully then it will be so. he told me he understands he has to do rehab...he has to eat healthily....to
progress. agree with nursing trying to hold off on giving him oxycodone. i would suggest cutting that prn back to 2.5 mg rather than having a 5 mg as an option. i am going to cut the xanax to q 12h rather than q 8h psych will follow
--- NOTE | 2025-01-04 18:15 | PTCARENOTE ---
Patient sat oob all morning and then sat at the side of the bed. Did reluctantly ambulate once in the room and again with PT. Lying in bed this afternoon and discussed about showering this afternoon after he rested and when arrived. Asked him
multiple times about showering and he adamantly refuses. Stating he is too weak, he will fall, he doesn't have the strength. states that for months he has been very sedentary and was very deconditioned. Patient complaining now of heartburn, TT
to CT surgery ENGRAVED ROLLER INSPECTOR.
[2025-01-04] MEDS: MAALOX 30 ML PO (18:27)
[2025-01-04] MEDS: NSS IV (19:20)
[2025-01-04] MEDS: REMOVE LIDOCAINE PATCH REMOVE (19:21)
--- NOTE | 2025-01-04 21:11 | PTCARENOTE ---
Patient received at change of shift asleep in the bed. Sinus rhythm on telemetry with first degree AV block, BBB, and prolonged QT interval. Oxygen saturation on room air 92-93%. Upon assessment the patient reported ten out of ten pain at his
sternal incision. Discussed pain management options and reviewed medications available to the patient at this time. Neurological check WDL. NIH zero. Surgical sites intact. RUE single lumen PICC intact, blood return noted. Plan of care discussed.
Call quesada within reach. Care ongoing.
[2025-01-04] MEDS: TYLENOL 1000 MG PO (22:52)
[2025-01-05] VITALS (8 sets, daily range): BP systolic 145–183; BP diastolic 87–93; BMI 24.6
[2025-01-05] MEDS: ROXICODONE 5 MG PO ×2 (03:52→17:41)
[2025-01-05 04:35] LABS: Blood Urea Nitrogen 63 mg/dl (9-20); Calcium 7.7 mg/dl (8.4-10.2); Carbon Dioxide 24 mmol/L (22-30); Chloride 110 mmol/L (98-107); Estimated Creatinine Clearance 57 ml/min; Glucose 121 mg/dl (70-99); Magnesium 1.8 mg/dl (1.6-2.3); Potassium 4.8 mmol/L (3.5-5.1); Sodium 137 mmol/L (135-145); eGFR 52.17
[2025-01-05] MEDS: TYLENOL PO ×2 (06:06→14:00)
--- NOTE | 2025-01-05 06:30 | W.PN.CT ---
Today's Communication / Plan
-
Plan:
-No major issues overnight. Hemodynamically and neurologically intact
-On Coumadin for On-X mechanical AVR. Coumadin currently on hold
-INR pending, was 2.39 yesterday
-Creatinine 1.6 was 1.9 yesterday, peaked to 3.1. Was 2.7 preop. Nephrology is following
-Cont. antibiotics per ID, Rocephin switched to Ertapenem
-On Ethacrynic Acid for diuresis given sulfa allergy, Nephrology following
-Replete electrolytes
-OOB into chair/Ambulate
-PT/OT f/u
-For SNF/Rehab placement likely today
Assessment / Plan
-
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
and debridement, c/b post op bleeding from CT and re-exploration/venous bleeding and oozing from the sternum on 12/27/[address] Denney, POD #9
Post-AMANDA: Normal biventricular function w/ LVEF 65%, well-seated AVR w/ mean gradient 11mmHg, normal washing jets. MV w/ MILD-to-mod regurgitation w/ improvement in preoperative RHONDA.
EKG 12/27/24 NSR 1st degree AVB
Radiology: CT [facility]: Sm L pleural effusion, mod ascities, mod splenomegaly hypodense lesion upper pole of spleen concern for splenic infarct. MRI: 12/23/24 Multiple cortical and subcortical foci concern for septic emboli which can demonstrate
ischemic changes with restricted diffusion as well as hemorrhagic damage to the brain. Linear areas of non flair suppression and diminished signal suggest possible subarachnoid hemorrhage
Echo 12/22/24 EF 60-65, mild LVH, mildly dilated LA, severe thickening of anterior and posterior mitral leaflets,mild-mod MR, mod sized 0.4 x 0/7 oscillating heterogeneous echodensity attahced to noncoronary cusp, mild-mod AR, PG 23.5/MG 13.1, small
pericardial effusion
Assessment:
-Strep Mutans AV endocarditis
-Acute hypoxic respiratory failure
-Strep Mutans bacteremia
-moderate AI
-moderate MR with RHONDA
-metastatic septic emboli to the brain, spleen
-oliguric CORNELIO on probable CKD IIIb
-Renal calculi
-coagulopathy
-transfusion dependent anemia
-thrombocytopenia
-unintentional weight loss
-dental cap dislodgement
-possible left mandibular canine abscess, per panelipse 12/27
-Panelipse from 12/27 showed suspicious lesion on the left mandibular canine concerning for possible abscess, seen by OMF 12/29 and determined to be unremarkable, no intervention needed, outpt f/u
-hx anxiety/depression
-hx HTN
-hx opioid addiction per , prescribed for management of recurrent renal stones and escalated after his father's approx. 2 yrs ago (on Buprenorphine preop)
-Acute postop blood loss Anemia on probable Anemia of Chronic CKD (transfused 3u PRBC's, 2u FFPs)
-Acute postop thrombocytopenia (transfused 2 {5pks}of plts)
-Acute postop VDRF/hypoxemia
-Acute postop atelectasis
-Acute postop hypovolemia with subsequent hypervolemia
-Acute postop SAH involving frontal lobe, right parietal occipital lobe and left parietal lobe
-Acute postop suspected Hemorrhagic septic emboli
-Acute CORNELIO on suspected CKD
-Acute postop metabolic acidosis
-Acute postop hyponatremia
-
Discussed patient care with: Cardiology, Nursing, Respiratory Therapy, Pharmacy and Care Team
Subjective
-
Date of Service: January 05, 2025
Pt c/o incisional pain, otherwise feels well
Objective Data
-
Lab Results
01/03/25 04:42
01/05/25 03:55
PT 26.1 Sec (11.4-14.6) H 01/04/25 03:55
INR 2.39 01/04/25 03:55
APTT 49.9 Sec (23.4-35.0) H 01/03/25 04:42
Vital Signs
Vital Signs
Temp Pulse Resp BP Pulse Ox
97.5 F 61 18 157/91 96
01/05/25 03:47 01/05/25 06:00 01/05/25 03:47 01/05/25 04:08 01/05/25 03:47
CT Intake/Output/Weight
01/04/25 01/04/25 01/05/25
06:59 18:59 06:59
Intake Total 840 / 1080 240 / 1080
Output Total 100 / 550 275 / 275
Balance -100 / -70 565 / 805 240 / 805
SaO2: 96 (RA)
Physical Exam
-
General: Awake, Oriented and AOx3
Cardiovascular: Regular rate & rhythm, No Murmurs, No Rub and No Gallop
Respiratory: Decreased Breath Sounds (at bases, otherwise clear)
Sternum: Stable
Incision: Clean, Dry, Intact and Dressing Intact
Extremities: Other (+trace edema)
Data Reviewed
-
Lab Results: Results Reviewed
Medications: Active Meds Reviewed
Chest X-Ray: Report Reviewed and Image Reviewed
ECG: Report Reviewed and Image Reviewed
[2025-01-05 06:55] LABS: INR 1.44; PT 17.8 Sec (11.4-14.6)
--- NOTE | 2025-01-05 08:29 | W.PN.CD ---
Today's Communication / Plan
-
Cont amlodipine
awaiting INR
swtich metop to coreg 6.25 mg bid
Impression / Plan
-
49-year-old man with no previous cardiac history who presents with unintentional weight loss since October found to have aortic valve endocarditis complicated by septic emboli to the brain and spleen, s/p AoV replacement and extensive debridement with
Dr. Denney on 12/27/24. Course complicated by subarachnoid hemorrhage.
Strep mutans aortic valve endocarditis
- c/b STROKE, hemorrhagic conversion, CORNELIO, splenic infarct
- Now s/p complex open heart surgery (12/27/2024) with mechanical AVR, debridement LVOT/MV structures
- Abx per ID
- coumadin being dosed by CT surgery
Hypertension
-Amlodipine 10 mg
- Switch to coreg 6.25 mg bid
Post op new LBBB/IVCD
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 improving Cr
Splenic infarct, in setting of endocarditis
Thrombocytopenia/anemia
Suspected hx of opioid drug dependence and hx of depression
- Psych suggests buprenorphine at discharge be considered
Subjective: No new complaints
Data:
s/p mechanical AVR (25 mm On-X) s/p explant and redo AVR (23mm On-x), LVOT vegetation debridement, MV chordae vegetation resection and debridement c/b post op bleeding and re-exploration/venous bleeding and oozing from the sternum on 12/27/[address] Denney
Intraop post-op AMANDA 12/17/2024: normal LVEF, AoV with mean grad 11 mmHg, mil/mod MR
HEAD CT 12/31/24 . COMPARISON: 12/30/2024
The ventricles are normal in size, configuration, and position. The previously seen small areas of high attenuation suggesting subarachnoid hemorrhage or hemorrhagic septic emboli are either stable or decreased. There are no new similar findings.
There is no intra- or extra-axial mass,.. There is no midline shift nor mass effect. Visualized paranasal sinuses show minimal mucosal thickening of the right maxillary sinus.
IMPRESSION:
Improved or stable findings suggesting small foci of intracranial hemorrhage. No new pathology identified...
Physical Exam
Vital Signs/Labs
Vital Signs
Temp Pulse Resp BP Pulse Ox
97.5 F 63 18 172/93 96
01/05/25 07:45 01/05/25 07:45 01/05/25 07:45 01/05/25 07:45 01/05/25 07:45
01/04/25 01/05/25 01/06/25
06:59 06:59 06:59
Actual Weight 160 lb 11.472 oz 171 lb 4.787 oz
01/03/25 04:42
01/05/25 03:55
PT 17.8 Sec (11.4-14.6) H 01/05/25 06:33
INR 1.44 01/05/25 06:33
APTT 49.9 Sec (23.4-35.0) H 01/03/25 04:42
Magnesium 1.8 mg/dl (1.6-2.3) 01/05/25 03:55
Triglycerides Cancelled 01/01/25 12:16
LDL Cholesterol, Calc Cancelled 01/01/25 12:16
VLDL Cholesterol, Calc Cancelled 01/01/25 12:16
HDL Cholesterol Cancelled 01/01/25 12:16
Physical Exam
Constitutional: No acute distress
EENT: Anicteric
Cardiovascular: Rhythm & rate is regular and Pedal edema present
Respiratory: Respiratory effort normal
GI: Soft
Neuro/Psych: AO x 3
Data Reviewed
-
Date of Service: January 05, 2025
EKG: Tracing Personally Visualized and interpreted (sr)
Echo: Report Reviewed by me
Labs: Labs Reviewed by me
[2025-01-05] MEDS: EDECRIN 50 MG PO ×2 (09:28→17:19)
[2025-01-05] MEDS: KCL 20 MEQ PO (09:28)
[2025-01-05] MEDS: NEURONTIN 300 MG PO ×2 (09:29→19:30)
[2025-01-05] MEDS: LIDOCAINE 4% PATCH TOPICAL (09:29)
[2025-01-05] MEDS: MUCINEX 600 MG PO ×2 (09:29→19:30)
[2025-01-05] MEDS: MAGNESIUM OXIDE 500 MG PO ×2 (09:29→19:30)
[2025-01-05] MEDS: LOW STRENGTH ASPIRIN 81 MG PO (09:29)
[2025-01-05] MEDS: PACERONE 200 MG PO ×3 (09:30→23:11)
[2025-01-05] MEDS: SENOKOT-S PO ×2 (09:30→19:19)
[2025-01-05] MEDS: NORVASC 10 MG PO (09:30)
[2025-01-05] MEDS: PROZAC 40 MG PO (09:30)
[2025-01-05] MEDS: PROTONIX 40 MG PO (09:30)
[2025-01-05] MEDS: SUBUTEX SL (09:31)
[2025-01-05] MEDS: COREG 6.25 MG PO ×2 (09:31→19:31)
[2025-01-05] MEDS: STERILE WATER FOR INJECTION IV ×2 (09:31→20:38)
[2025-01-05] MEDS: FLUSH (NSS) 1 FLUSH IV (09:31)
[2025-01-05] MEDS: LOPRESSOR PO (09:35)
[2025-01-05] MEDS: FLUSH (NSS) 3 FLUSH IV (10:13)
[2025-01-05] MEDS: KEPPRA 500 MG IV ×2 (10:13→19:31)
[2025-01-05] MEDS: INVANZ 60 MG IV (10:14)
--- NOTE | 2025-01-05 12:05 | W.PN.ID1 ---
Date of Service
Date of Service: January 05, 2025
Today's Communication
Continue Ertapenem x 6 weeks.
Assessment / Plan
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
Suspected septic emboli to the brain
Subarachnoid hemorrhage
Leukocytosis; improved
Renal insufficiency
Elevated ESR, CRP
HTN
DM type II
Nephrolithiasis
Recommendations:
Repeat blood cultures without growth.
Patient status post valve replacement (12/27/2024)
Aortic valve cx: Enterobacter cloacae (on enrichment broth only) - possibly contaminant.
To err on side of caution, treat both S. mutans and E. cloacae with Ertapenem 1g IV q 24h x 6 weeks through 02/14/25.
Follow weekly CBC with diff, CMP.
Infusion sheet placed in chart. Case management aware.
���������������������������������������������������������
Chief Complaint
-: Other (Strep mutans endocarditis)
Subjective / Review of Systems
No new complaints.
Vital Signs / Physical Exam
Vital Signs
Vital Signs
Temp Pulse Resp BP Pulse Ox
98 F 60 18 172/93 97
01/05/25 11:58 01/05/25 11:58 01/05/25 11:58 01/05/25 07:45 01/05/25 11:58
Physical Exam
Constitutional: No Acute Distress and Comfortable
Cardiovascular: Regular Rate and S1/S2
Gastrointestinal: Soft, Non Tender and Non Distended
Extremities: Edema
Neurological: AO x 3
Lines: PICC
Objective Data
Lab Data
Lab Results
01/03/25 04:42
01/05/25 03:55
ESR 58 mm/hour (0-20) H 12/29/24 03:08
PT 17.8 Sec (11.4-14.6) H 01/05/25 06:33
INR 1.44 01/05/25 06:33
APTT 49.9 Sec (23.4-35.0) H 01/03/25 04:42
Estimated Creat Clear 57 ml/min 01/05/25 03:55
Lactic Acid 0.9 mmol/L (0.7-2.0) 12/28/24 03:11
Total Bilirubin 0.5 mg/dl (0.2-1.3) 12/28/24 17:33
AST 42 U/L (17-59) 12/28/24 17:33
ALT 14 U/L (0-50) 12/28/24 17:33
Alkaline Phosphatase 60 U/L (38-126) 12/28/24 17:33
C-Reactive Protein 48.80 mg/L (0.0-10.00) H 12/29/24 03:08
Most recent labs reviewed.
Micro Results:
12/30/24 11:06 Blood Culture - Final
Blood/Venous No Growth - Final Report
12/30/24 10:20 Blood Culture - Final
Blood/Venous No Growth - Final Report
12/27/24 17:06 Tissue Culture - Final
Heart Enterobacter cloacae
Gram Stain - Final
12/31/24 10:54 Respiratory Culture - Final
Sputum Elaine albicans
Gram Stain - Final
12/27/24 17:06 Anaerobic Culture - Final
Heart NO ANAEROBES ISOLATED
12/27/24 17:14 Anaerobic Culture - Final
Heart NO ANAEROBES ISOLATED
12/27/24 17:14 Tissue Culture - Final
Heart No Growth After 72 Hours
Gram Stain - Final
12/27/24 12:38 Blood Culture - Final
Blood/Venous No Growth - Final Report
12/27/24 11:47 Blood Culture - Final
Blood/Venous No Growth - Final Report
12/30/24 10:10 Urine Culture - Final
Urine NO GROWTH
12/27/24 17:06 Fungal Culture - Preliminary
Heart Culture in progress.
Positive cultures are reported as soon as detected.
Final report to follow in four to five weeks.
12/27/24 17:14 Fungal Culture - Preliminary
Heart Culture in progress.
Positive cultures are reported as soon as detected.
Final report to follow in four to five weeks.
12/27/24 15:00 Urine Culture - Final
Urine NO GROWTH
12/27/24 05:31 MRSA Screen - Final
Nose No Methicillin Resistant Staphylococcus aureus isolated.
12/18/2024
11:00 Blood culture ([facility])
Streptococcus mutans
Ampicillin <= 0.25 S
Cefotaxime <=0.12 S
Ceftriaxone <= 0.12 S
Erythromycin <= 0.12 S
Levofloxacin =1 S
Linezolid <= 2 S
Moxifloxacin =0.25 S
Penicillin G <= 0.06 S
Vancomycin =1 S
Imaging:
12/29/2024 CT head without contrast: 'MULTIFOCAL ACUTE SUBARACHNOID HEMORRHAGE with a new small subarachnoid hemorrhage over the inferolateral margin of the right frontal lobe. Small acute subarachnoid hemorrhages in the sulci medial to the right
frontal lobe, anterior to the left frontal lobe, medial to the right parietal-occipital lobe, and posterior to the left parietal lobe which appear unchanged. Hemorrhagic septic emboli is a diagnostic consideration given the history of endocarditis.'
12/25/2024 MRI brain (performed at [facility]): Multiple cortical and subcortical foci of diminished signal intensity on susceptibility weighted sequences. The sequence suggest the presence of blood products. Concern raised for septic
emboli which can demonstrate ischemic changes resulting in restriction diffusion, as well as hemorrhagic damage to the brain. Multiple small embolic infarcts also in the differential. Contrast enhanced examination failed to demonstrate enhancing
lesions or venous filling defects or prominent venous structures thus leptomeningeal carcinomatosis or venous congestion is not consistent with this study. Linear appearing areas of non-FLAIR suppression and diminished signal on susceptibility
weighted sequences suggest associated possible subarachnoid hemorrhage within the bilateral occipital lobes. Please see full dictation for additional detail.
12/22/2024 ECHO (TTE): LV EF = 60%. Mildly dilated left atrium. Severe thickening of the anterior and posterior leaflets of the mitral valve, but without clear vegetations. Moderate sized (0.4 x 0.7 cm oscillating heterogeneous echodensity
attached to the noncoronary cusp. Aortic valve is thickened and calcified with mild to moderate eccentric aortic regurgitation.
--- NOTE | 2025-01-05 12:09 | W.PN.NEPH.PH ---
Today's Communication / Plan
-
Continue diuretic
Assessment/Plan
-
Impression:
CORNELIO
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
bleeding and re-exploration/venous bleeding and oozing from the sternum on 12/27/24
VDRF post op
Hyperkalemia
Septic brain emboli
Splenic infarct
Strep mutans bacteremia
Anemia
Thrombocytopenia
Anxiety/depression
History of obstructive uropathy due to nephrolithiasis with double-J stent
SAH
Plan:
Creatinine improving to 1.9
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
Previous serological workup was reviewed from [facility]
UA notes: 4+ blood and 4+ albumin, neg urine eosinophil
BP stable on meds
cont diuretic - ethacrynic acid 50mg po BID
wt is down but still with edema
Creatinine stable at 1.6
-
-
Date of Service: January 05, 2025
CC / HPI / ROS
-
Chief Complaint:
CORNELIO
History of Present Illness:
creatinine down at 1.9
s/p AVR for IE on 12/27
Hemodynamically stable
exp aphasia (improving), stroke alert 12/28 and has CTA head and neck, new SAH noted , remains off AC
no fever, hb sable 8.5
Review of Systems:
off O2
no cp or sob at rest
no abd pain
Labs
-
Labs:
WBC 8.2 10^3/uL (4.8-10.8) 01/03/25 04:42
RBC 2.94 10^6/uL (4.70-6.10) L 01/03/25 04:42
Hgb 8.5 g/dL (13.0-18.0) L 01/03/25 04:42
Hct 24.5 % (39.0-52.0) L 01/03/25 04:42
Plt Count 169 10^3/uL (130-400) 01/03/25 04:42
Sodium 137 mmol/L (135-145) 01/05/25 03:55
Potassium 4.8 mmol/L (3.5-5.1) 01/05/25 03:55
Chloride 110 mmol/L (98-107) H 01/05/25 03:55
Carbon Dioxide 24 mmol/L (22-30) 01/05/25 03:55
BUN 63 mg/dl (9-20) H 01/05/25 03:55
Creatinine 1.6 mg/dL (0.7-1.3) H 01/05/25 03:55
eGFR 52.17 01/05/25 03:55
Glucose 121 mg/dl (70-99) H 01/05/25 03:55
Calcium 7.7 mg/dl (8.4-10.2) L 01/05/25 03:55
Phosphorus 8.6 mg/dl (2.5-4.5) H 12/29/24 03:08
Albumin 2.0 g/dl (3.5-5.0) L 12/28/24 17:33
Physical Exam
-
Vital Signs:
Vital Signs
Temp Pulse Resp BP Pulse Ox
98 F 60 18 172/93 97
01/05/25 11:58 01/05/25 11:58 01/05/25 11:58 01/05/25 07:45 01/05/25 11:58
--- NOTE | 2025-01-05 13:07 | PTCARENOTE ---
Patient more alert and conversive this morning but still needs much encouragement to participate in ADL's and increase activity. Sitting oob in the chair now, call quesada in reach.
--- NOTE | 2025-01-05 13:19 | W.PN.UPDATE ---
Update Note
Progress Note Update
Pt seen resting in chair, stating he is tired. Pt has refused Subutex today for the fourth day, states he does not want it/wants to stop it. Pt alert, oriented, calm, cooperative, affect mildly annoyed, no acute distress. Pt has been receiving
Oxycodone prn doses on a regular basis, being tapered down/less often. Pt states his mood is okay, continues taking existing home meds Prozac and Xanax. Sodium is in the normal range yesterday and today.
Imp: TME, resolved
Unspecified depression, anxiety, stable on existing medications
Unclear hx regarding opioid use, prescribed Subutex by PCP- reportedly not taking recently, pt insists on stopping
Rec: continue home meds Prozac, Xanax prn. Steadily taper opioid pain medication; will discontinue Subutex (refusing x 4 days, pt request)
Will follow
[2025-01-05] MEDS: COUMADIN 1 MG PO (17:27)
[2025-01-05] MEDS: NSS IV (19:07)
[2025-01-05] MEDS: REMOVE LIDOCAINE PATCH REMOVE (19:08)
[2025-01-05] MEDS: FLEXERIL 5 MG PO (19:30)
[2025-01-05] MEDS: XANAX 0.5 MG PO (19:30)
--- NOTE | 2025-01-05 21:23 | PTCARENOTE ---
Patient received at change of shift resting in the bed. Tearful and agitated/angry regarding change in PRN medications including increasing the time between Xanax doses. The patient remains neurologically intact, neuro check WDL, NIH zero. Sinus
rhythm on telemetry with BBB, first degree AV block, and prolonged QT interval. Surgical sites intact. Plan of care discussed. RUE PICC line intact, blood return noted. Call quesada within reach. Care ongoing.
[2025-01-05] MEDS: TYLENOL 1000 MG PO (23:11)
[2025-01-06] VITALS (10 sets, daily range): BP systolic 133–172; BP diastolic 79–99; PULSE 67–68; O2SAT 98; BMI 24.8
[2025-01-06] MEDS: ROXICODONE 5 MG PO ×2 (01:58→17:15)
[2025-01-06 04:53] LABS: INR 1.34; PT 16.9 Sec (11.4-14.6)
[2025-01-06 05:06] LABS: Blood Urea Nitrogen 59 mg/dl (9-20); Calcium 8.1 mg/dl (8.4-10.2); Carbon Dioxide 26 mmol/L (22-30); Chloride 109 mmol/L (98-107); Estimated Creatinine Clearance 57 ml/min; Glucose 114 mg/dl (70-99); Potassium 4.8 mmol/L (3.5-5.1); Sodium 136 mmol/L (135-145); eGFR 52.17
[2025-01-06] MEDS: TYLENOL PO (05:57)
--- NOTE | 2025-01-06 07:40 | W.PN.CT ---
Today's Communication / Plan
-
Plan:
-No major issues overnight. Hemodynamically and neurologically intact
-On Coumadin for On-X mechanical AVR
-Received Coumadin 1 mg, INR 1.34 down from 1.44 today, peaked to 5.37 on 01/02
-Creatinine 1.6 was 1.6 yesterday, peaked to 3.1. Was 2.7 preop. Nephrology is following
-Cont. antibiotics per ID, Rocephin switched to Ertapenem
-On Ethacrynic Acid for diuresis given sulfa allergy, Nephrology following
-Replete electrolytes
-OOB into chair/Ambulate
-PT/OT f/u
-Awaiting therapeutic INR and SNF/Rehab placement
Assessment / Plan
-
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
and debridement, c/b post op bleeding from CT and re-exploration/venous bleeding and oozing from the sternum on 12/27/[address] Denney, POD #10
Post-AMANDA: Normal biventricular function w/ LVEF 65%, well-seated AVR w/ mean gradient 11mmHg, normal washing jets. MV w/ MILD-to-mod regurgitation w/ improvement in preoperative RHONDA.
EKG 12/27/24 NSR 1st degree AVB
Radiology: CT Platter: Sm L pleural effusion, mod ascities, mod splenomegaly hypodense lesion upper pole of spleen concern for splenic infarct. MRI: 12/23/24 Multiple cortical and subcortical foci concern for septic emboli which can demonstrate
ischemic changes with restricted diffusion as well as hemorrhagic damage to the brain. Linear areas of non flair suppression and diminished signal suggest possible subarachnoid hemorrhage
Echo 12/22/24 EF 60-65, mild LVH, mildly dilated LA, severe thickening of anterior and posterior mitral leaflets,mild-mod MR, mod sized 0.4 x 0/7 oscillating heterogeneous echodensity attahced to noncoronary cusp, mild-mod AR, PG 23.5/MG 13.1, small
pericardial effusion
Assessment:
-Strep Mutans AV endocarditis
-Acute hypoxic respiratory failure
-Strep Mutans bacteremia
-moderate AI
-moderate MR with RHONDA
-metastatic septic emboli to the brain, spleen
-oliguric CORNELIO on probable CKD IIIb
-Renal calculi
-coagulopathy
-transfusion dependent anemia
-thrombocytopenia
-unintentional weight loss
-dental cap dislodgement
-possible left mandibular canine abscess, per panelipse 12/27
-Panelipse from 12/27 showed suspicious lesion on the left mandibular canine concerning for possible abscess, seen by [facility] 12/29 and determined to be unremarkable, no intervention needed, outpt f/u
-hx anxiety/depression
-hx HTN
-hx opioid addiction per , prescribed for management of recurrent renal stones and escalated after his father's approx. 2 yrs ago (on Buprenorphine preop)
-Acute postop blood loss Anemia on probable Anemia of Chronic CKD (transfused 3u PRBC's, 2u FFPs)
-Acute postop thrombocytopenia (transfused 2 {5pks}of plts)
-Acute postop VDRF/hypoxemia
-Acute postop atelectasis
-Acute postop hypovolemia with subsequent hypervolemia
-Acute postop SAH involving frontal lobe, right parietal occipital lobe and left parietal lobe
-Acute postop suspected Hemorrhagic septic emboli
-Acute CORNELIO on suspected CKD
-Acute postop metabolic acidosis
-Acute postop hyponatremia
-
Discussed patient care with: Cardiology, Nursing, Respiratory Therapy, Pharmacy and Care Team
Subjective
-
Date of Service: January 06, 2025
Pt c/o incisional pain, otherwise feels well
Objective Data
-
Lab Results
01/03/25 04:42
01/06/25 04:18
PT 16.9 Sec (11.4-14.6) H 01/06/25 04:18
INR 1.34 01/06/25 04:18
APTT 49.9 Sec (23.4-35.0) H 01/03/25 04:42
Vital Signs
Vital Signs
Temp Pulse Resp BP Pulse Ox
97.8 F 66 16 158/89 96
01/06/25 04:14 01/06/25 06:00 01/06/25 04:14 01/06/25 04:15 01/06/25 04:14
CT Intake/Output/Weight
01/05/25 01/06/25 01/06/25
18:59 06:59 18:59
Intake Total 240 / 480 240 / 480
Output Total 350 / 350 100 / 100
Balance -110 / 130 240 / 130 -100 / -100
SaO2: 96 (RA)
Physical Exam
-
General: Awake, Oriented and AOx3
Cardiovascular: Regular rate & rhythm, No Murmurs, No Rub and No Gallop
Respiratory: Decreased Breath Sounds (at bases, otherwise clear)
Sternum: Stable
Incision: Clean, Dry, Intact and Dressing Intact
Extremities: No Edema
[2025-01-06] MEDS: PROZAC 40 MG PO (08:21)
[2025-01-06] MEDS: LOW STRENGTH ASPIRIN 81 MG PO (08:21)
[2025-01-06] MEDS: NORVASC 10 MG PO (08:21)
[2025-01-06] MEDS: COREG 6.25 MG PO ×2 (08:21→13:26)
[2025-01-06] MEDS: KCL 20 MEQ PO (08:21)
[2025-01-06] MEDS: PACERONE 200 MG PO ×3 (08:21→23:15)
[2025-01-06] MEDS: SENOKOT-S PO ×3 (08:22→20:14)
[2025-01-06] MEDS: PROTONIX 40 MG PO (08:22)
[2025-01-06] MEDS: MUCINEX 600 MG PO ×2 (08:22→20:02)
[2025-01-06] MEDS: XANAX 0.5 MG PO (08:22)
[2025-01-06] MEDS: EDECRIN 50 MG PO ×2 (08:22→16:13)
[2025-01-06] MEDS: NEURONTIN 300 MG PO ×2 (08:22→20:02)
[2025-01-06] MEDS: STERILE WATER FOR INJECTION IV (08:24)
[2025-01-06] MEDS: LIDOCAINE 4% PATCH TOPICAL (08:25)
[2025-01-06] MEDS: TYLENOL 1000 MG PO ×3 (08:27→23:15)
[2025-01-06] MEDS: KEPPRA 500 MG IV ×2 (08:35→20:02)
--- NOTE | 2025-01-06 10:26 | W.PN.UPDATE ---
Update Note
Progress Note Update
Patient seen, sitting in chair awaiting breakfast, chart reviewed, discussed with staff. Mr. Kwan reports he is doing well today. He is calm and cooperative. Offers no complaints. He tells me he is focusing on getting his legs stronger so he can
go home. Pain is controlled. Off Subutex now for about 5 days.
Impression/Recommendation: TME, now resolved; Unspecified depression and anxiety, stable on existing medications which include Prozac 40mg and Xanax PRN; History of opioid use,now off Subutex. Psych to sign off, please call or reconsult with any
new or immediate concerns.
[2025-01-06] MEDS: INVANZ 60 MG IV (10:43)
[2025-01-06] MEDS: FLUSH (NSS) 2 FLUSH IV (10:44)
--- NOTE | 2025-01-06 11:49 | W.PN.CD ---
Addendum entered and electronically signed by Ruy Kwon MD 01/06/25 16:37:
Patient seen and examined in collaboration with [employer] [employer]; agree with below.
- No active cardiac complaints.
- Will increase carvedilol to 12.5 mg twice daily to help improve blood pressure control.
- Continue other cardiac medications; awaiting therapeutic INR.
Original Note:
Today's Communication / Plan
-
Increase carvedilol to 12.5 mg twice daily
Follow-up blood pressure.
MRI report pending.
Impression / Plan
-
I/P: 49-year-old man with no previous cardiac history who presents with unintentional weight loss since October found to have aortic valve endocarditis complicated by septic emboli to the brain and spleen, s/p AoV replacement and extensive debridement
with Dr. Denney on 12/27/24. Course complicated by subarachnoid hemorrhage.
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
Strep mutans aortic valve endocarditis
- Complicated by CVA with hemorrhagic conversion, CORNELIO, & splenic infarct
- Now s/p complex open heart surgery (12/27/2024) with mechanical AVR, debridement LVOT/MV structures
- Antibiotic therapy per ID (Ertapenem until 02/14/2025)
Mechanical aortic valve replacement
-Warfarin dosing per CT surgery, 1.34 today
-Post AMANDA MG 11mg
Hypertension
-Amlodipine 10 mg
-Increase carvedilol to 12.5mg BID
-Avoiding JUAN/ARB with recovering CORNELIO
LE edema
- B/L LE edema without orthopnea & without SOB
- Weight up but today's weight is bed scale (he refused standing scale)
- On ethacrynic acid per nephrology
Post op new LBBB/IVCD, follow telemetry
CORNELIO, nephrology following, possible infectious immune complex GN, creatinine vastly improved
CVA, MRI pending, LDL above goal at 72
Splenic infarct, in setting of endocarditis
Thrombocytopenia/anemia
History of opioid abuse, off Subutex, psychiatry has signed off
Subjective: No new complaints.
Data:
OR, Dr. Denney, 12/27/2024:
Functionally bicuspid AV (with partial fusion of LCC and RCC), NCC w/ significant destruction w/ embolic vegetations on aortic and ventricular surfaces; one vegetation with very narrow stalk.
S/P mechanical AVR (25 mm On-X) s/p explant and redo AVR (23mm On-x), LVOT vegetation debridement, MV chordae vegetation resection and debridement.
Complicated by post op bleeding and re-exploration/venous bleeding and oozing from the sternum.
HEAD CT 12/31/24:
COMPARISON: 12/30/2024
The ventricles are normal in size, configuration, and position.
The previously seen small areas of high attenuation suggesting subarachnoid hemorrhage or hemorrhagic septic emboli are either stable or decreased.
There are no new similar findings. There is no intra- or extra-axial mass.
There is no midline shift nor mass effect. Visualized paranasal sinuses show minimal mucosal thickening of the right maxillary sinus.
IMPRESSION:
Improved or stable findings suggesting small foci of intracranial hemorrhage. No new pathology identified.
Physical Exam
Vital Signs/Labs
Vital Signs
Temp Pulse Resp BP Pulse Ox
97.6 F 68 18 172/94 98
01/06/25 08:13 01/06/25 08:13 01/06/25 08:13 01/06/25 08:13 01/06/25 08:13
01/05/25 01/06/25 01/07/25
06:59 06:59 06:59
Actual Weight 77.7 kg 78.4 kg
01/03/25 04:42
01/06/25 04:18
PT 16.9 Sec (11.4-14.6) H 01/06/25 04:18
INR 1.34 01/06/25 04:18
APTT 49.9 Sec (23.4-35.0) H 01/03/25 04:42
Magnesium 1.8 mg/dl (1.6-2.3) 01/05/25 03:55
Triglycerides Cancelled 01/01/25 12:16
LDL Cholesterol, Calc Cancelled 01/01/25 12:16
VLDL Cholesterol, Calc Cancelled 01/01/25 12:16
HDL Cholesterol Cancelled 01/01/25 12:16
Physical Exam
Constitutional: No acute distress and Comfortable
EENT: Anicteric and Moist mucous membranes
Cardiovascular: Rhythm & rate is regular and Pedal edema present
Respiratory: Respiratory effort normal and Lungs clear to auscul.
GI: Soft, Distention absent, Flat, Non tender and Normal bowel sounds
Neuro/Psych: AO x 3
Other: Skin (warm and dry)
Data Reviewed
-
Date of Service: January 06, 2025
--- NOTE | 2025-01-06 12:57 | W.PN.NEPH.PH ---
Today's Communication / Plan
-
Continue diuretics
Signed off please call if needed
Assessment/Plan
-
Impression:
CORNELIO
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
bleeding and re-exploration/venous bleeding and oozing from the sternum on 12/27/24
VDRF post op
Hyperkalemia
Septic brain emboli
Splenic infarct
Strep mutans bacteremia
Anemia
Thrombocytopenia
Anxiety/depression
History of obstructive uropathy due to nephrolithiasis with double-J stent
SAH
Plan:
Creatinine improving to 1.9> 1.6
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
Previous serological workup was reviewed from [facility]
UA notes: 4+ blood and 4+ albumin, neg urine eosinophil
BP stable on meds
cont diuretic - ethacrynic acid 50mg po BID
Creatinine stable at 1.6
-
-
Date of Service: January 06, 2025
CC / HPI / ROS
-
Chief Complaint:
CORNELIO
History of Present Illness:
creatinine down at 1.9
s/p AVR for IE on 12/27
Hemodynamically stable
exp aphasia (improving), stroke alert 12/28 and has CTA head and neck, new SAH noted , remains off AC
no fever, hb sable 8.5
Review of Systems:
off O2
no cp or sob at rest
no abd pain
Labs
-
Labs:
WBC 8.2 10^3/uL (4.8-10.8) 01/03/25 04:42
RBC 2.94 10^6/uL (4.70-6.10) L 01/03/25 04:42
Hgb 8.5 g/dL (13.0-18.0) L 01/03/25 04:42
Hct 24.5 % (39.0-52.0) L 01/03/25 04:42
Plt Count 169 10^3/uL (130-400) 01/03/25 04:42
Sodium 136 mmol/L (135-145) 01/06/25 04:18
Potassium 4.8 mmol/L (3.5-5.1) 01/06/25 04:18
Chloride 109 mmol/L (98-107) H 01/06/25 04:18
Carbon Dioxide 26 mmol/L (22-30) 01/06/25 04:18
BUN 59 mg/dl (9-20) H 01/06/25 04:18
Creatinine 1.6 mg/dL (0.7-1.3) H 01/06/25 04:18
eGFR 52.17 01/06/25 04:18
Glucose 114 mg/dl (70-99) H 01/06/25 04:18
Calcium 8.1 mg/dl (8.4-10.2) L 01/06/25 04:18
Phosphorus 8.6 mg/dl (2.5-4.5) H 12/29/24 03:08
Albumin 2.0 g/dl (3.5-5.0) L 12/28/24 17:33
Physical Exam
-
Vital Signs:
Vital Signs
Temp Pulse Resp BP Pulse Ox
97.6 F 68 18 172/94 98
01/06/25 08:13 01/06/25 08:13 01/06/25 08:13 01/06/25 08:13 01/06/25 08:13
Respiratory:: Bilateral: CTA
Lung Excursion:: Normal
Abdomen:: Soft
Bowel Sounds:: Normal
Extremity Edema:: +1: Bilateral:
--- NOTE | 2025-01-06 14:47 | W.PN.ID1 ---
Date of Service
Date of Service: January 06, 2025
Today's Communication
Continue Ertapenem.
Assessment / Plan
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
Suspected septic emboli to the brain
Subarachnoid hemorrhage
Leukocytosis; improved
Renal insufficiency
Elevated ESR, CRP
HTN
DM type II
Nephrolithiasis
Recommendations:
Repeat blood cultures without growth.
Patient status post valve replacement with mechanical AVR (12/27/2024)
Aortic valve cx: Enterobacter cloacae (on enrichment broth only) - possibly contaminant.
To err on side of caution, treat both S. mutans and E. cloacae
-> Continue Ertapenem 1g IV q 24h x 6 weeks through 02/14/25.
Follow weekly CBC with diff, CMP.
Infusion sheet placed in chart. Case management aware.
���������������������������������������������������������
Chief Complaint
-: Other (Strep mutans endocarditis)
Vital Signs / Physical Exam
Vital Signs
Vital Signs
Temp Pulse Resp BP Pulse Ox
98.2 F 61 18 133/83 95
01/06/25 13:15 01/06/25 13:18 01/06/25 13:15 01/06/25 13:18 01/06/25 13:18
Physical Exam
Constitutional: No Acute Distress and Comfortable
Cardiovascular: Regular Rate and S1/S2
Gastrointestinal: Soft, Non Tender and Non Distended
Extremities: Edema
Neurological: AO x 3
Lines: PICC
Objective Data
Lab Data
Lab Results
01/03/25 04:42
01/06/25 04:18
ESR 58 mm/hour (0-20) H 12/29/24 03:08
PT 16.9 Sec (11.4-14.6) H 01/06/25 04:18
INR 1.34 01/06/25 04:18
APTT 49.9 Sec (23.4-35.0) H 01/03/25 04:42
Estimated Creat Clear 57 ml/min 01/06/25 04:18
Lactic Acid 0.9 mmol/L (0.7-2.0) 12/28/24 03:11
Total Bilirubin 0.5 mg/dl (0.2-1.3) 12/28/24 17:33
AST 42 U/L (17-59) 12/28/24 17:33
ALT 14 U/L (0-50) 12/28/24 17:33
Alkaline Phosphatase 60 U/L (38-126) 12/28/24 17:33
C-Reactive Protein 48.80 mg/L (0.0-10.00) H 12/29/24 03:08
Most recent labs reviewed.
Micro Results:
12/27/24 17:06 Fungal Culture - Preliminary
Heart Culture in progress.
Positive cultures are reported as soon as detected.
Final report to follow in four to five weeks.
12/27/24 17:14 Fungal Culture - Preliminary
Heart Culture in progress.
Positive cultures are reported as soon as detected.
Final report to follow in four to five weeks.
12/30/24 11:06 Blood Culture - Final
Blood/Venous No Growth - Final Report
12/30/24 10:20 Blood Culture - Final
Blood/Venous No Growth - Final Report
12/27/24 17:06 Tissue Culture - Final
Heart Enterobacter cloacae
Gram Stain - Final
12/31/24 10:54 Respiratory Culture - Final
Sputum Elaine albicans
Gram Stain - Final
12/27/24 17:06 Anaerobic Culture - Final
Heart NO ANAEROBES ISOLATED
12/27/24 17:14 Anaerobic Culture - Final
Heart NO ANAEROBES ISOLATED
12/27/24 17:14 Tissue Culture - Final
Heart No Growth After 72 Hours
Gram Stain - Final
12/27/24 12:38 Blood Culture - Final
Blood/Venous No Growth - Final Report
12/27/24 11:47 Blood Culture - Final
Blood/Venous No Growth - Final Report
12/30/24 10:10 Urine Culture - Final
Urine NO GROWTH
12/27/24 15:00 Urine Culture - Final
Urine NO GROWTH
12/27/24 05:31 MRSA Screen - Final
Nose No Methicillin Resistant Staphylococcus aureus isolated.
12/18/2024
11:00 Blood culture ([facility])
Streptococcus mutans
Ampicillin <= 0.25 S
Cefotaxime <=0.12 S
Ceftriaxone <= 0.12 S
Erythromycin <= 0.12 S
Levofloxacin =1 S
Linezolid <= 2 S
Moxifloxacin =0.25 S
Penicillin G <= 0.06 S
Vancomycin =1 S
Imaging:
12/29/2024 CT head without contrast: 'MULTIFOCAL ACUTE SUBARACHNOID HEMORRHAGE with a new small subarachnoid hemorrhage over the inferolateral margin of the right frontal lobe. Small acute subarachnoid hemorrhages in the sulci medial to the right
frontal lobe, anterior to the left frontal lobe, medial to the right parietal-occipital lobe, and posterior to the left parietal lobe which appear unchanged. Hemorrhagic septic emboli is a diagnostic consideration given the history of endocarditis.'
12/25/2024 MRI brain (performed at [facility]): Multiple cortical and subcortical foci of diminished signal intensity on susceptibility weighted sequences. The sequence suggest the presence of blood products. Concern raised for septic
emboli which can demonstrate ischemic changes resulting in restriction diffusion, as well as hemorrhagic damage to the brain. Multiple small embolic infarcts also in the differential. Contrast enhanced examination failed to demonstrate enhancing
lesions or venous filling defects or prominent venous structures thus leptomeningeal carcinomatosis or venous congestion is not consistent with this study. Linear appearing areas of non-FLAIR suppression and diminished signal on susceptibility
weighted sequences suggest associated possible subarachnoid hemorrhage within the bilateral occipital lobes. Please see full dictation for additional detail.
12/22/2024 ECHO (TTE): LV EF = 60%. Mildly dilated left atrium. Severe thickening of the anterior and posterior leaflets of the mitral valve, but without clear vegetations. Moderate sized (0.4 x 0.7 cm oscillating heterogeneous echodensity
attached to the noncoronary cusp. Aortic valve is thickened and calcified with mild to moderate eccentric aortic regurgitation.
--- NOTE | 2025-01-06 16:48 | PTCARENOTE ---
The patient is aaox4, vitals remain stable. NSR with a 1st degree AVB is noted on the monitor. He has been withdrawn all day and has a flat affect. He has had no motivation do anything related to his care this shift. He continues to ask the staff
members to do even menial things for him. For example, handing him his drink that is within a foots reach, or picking up dropped food off his chest for him etc. I explained to him that he needs to be more independent. He prefers to stay in bed and
sleep all day. I explained to him the risks of being in bed all day, pneumonia, DVTs, deconditioning, etc. Whenever I recommend siting in the chair he complains that it hurts his 'butt'. I applied a foam dressing for protection over what looks to be
old scars on his sacrum. In addition, I switched the air chair pad for a foam seat cushion to help with his comfort. I was able to encouraged him to be oob and in his chair for all meals. He has agreed reluctantly and perfer to be lying back in the
chair. His diet is fair and eats over 50% of his meals. He refused his Ensure Enlive.
[2025-01-06] MEDS: COUMADIN 2.5 MG PO (17:16)
--- NOTE | 2025-01-06 18:20 | PTCARENOTE ---
Patient c/o a 10/10 whole body pain. I medicated him with 5 mg of po Roxicodone as ordered. Post pain eval was still a 10/10 on scale.
[2025-01-06] MEDS: XANAX 1 MG PO (20:02)
[2025-01-06] MEDS: COREG 12.5 MG PO (20:02)
[2025-01-06] MEDS: FLUSH (NSS) 1 FLUSH IV (20:03)
[2025-01-06] MEDS: NSS IV (20:14)
[2025-01-06] MEDS: REMOVE LIDOCAINE PATCH REMOVE (20:15)
[2025-01-07] VITALS (10 sets, daily range): BP systolic 135–172; BP diastolic 79–92; PULSE 64; BMI 24.5
--- NOTE | 2025-01-07 | PTCARENOTE ---
Received pt at change of shift resting in bed. SR on tele with first degree, BBB, and prolonged QT. HR in the 60's. Administered PRN Xanax per pt request-see SEP. pt reports having loose stools and refused Senokot. No stools noted on shift supervisor rn at
this time. IS encouraged and pt performed with result of 725. Sternal precautions and right upper extremity restrictions maintained. pt states a constant pain level of 10/10 at the sternal incision site even with pain medications. pt not requesting
pain medications at this time. Scheduled Tylenol administered. pt also states, 'If I don't get my Xanax and Oxy, I get full body shivers.' Pt encouraged to turn and reposition in bed. Call quesada within reach.
[2025-01-07 04:53] LABS: Blood Urea Nitrogen 56 mg/dl (9-20); Calcium 8.2 mg/dl (8.4-10.2); Carbon Dioxide 26 mmol/L (22-30); Chloride 110 mmol/L (98-107); Estimated Creatinine Clearance 61 ml/min; Glucose 96 mg/dl (70-99); Potassium 5.1 mmol/L (3.5-5.1); Sodium 138 mmol/L (135-145); eGFR 56.37
--- NOTE | 2025-01-07 05:06 | W.PN.CT ---
Today's Communication / Plan
-
Plan:
-No major issues overnight. Hemodynamically and neurologically intact
-On Coumadin for On-X mechanical AVR
-Received Coumadin 1 mg, INR 1.76 up from 1.34, peaked to 5.37 on 01/02
-Creatinine 1.5, was 1.6 yesterday, peaked to 3.1. Was 2.7 preop. Nephrology is following
-Cont. antibiotics per ID, Rocephin switched to Ertapenem
-On Ethacrynic Acid for diuresis given sulfa allergy, Nephrology following
-Appears to be third spacing as he's noted to have 3+ pitting edema
-Replete electrolytes
-OOB into chair/Ambulate
-PT/OT f/u
-Awaiting therapeutic INR and SNF/Rehab placement
Assessment / Plan
-
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
and debridement, c/b post op bleeding from CT and re-exploration/venous bleeding and oozing from the sternum on 12/27/[address] Denney, POD #11
Post-AMANDA: Normal biventricular function w/ LVEF 65%, well-seated AVR w/ mean gradient 11mmHg, normal washing jets. MV w/ MILD-to-mod regurgitation w/ improvement in preoperative RHONDA.
EKG 12/27/24 NSR 1st degree AVB
Radiology: CT [place]: Sm L pleural effusion, mod ascities, mod splenomegaly hypodense lesion upper pole of spleen concern for splenic infarct. MRI: 12/23/24 Multiple cortical and subcortical foci concern for septic emboli which can demonstrate
ischemic changes with restricted diffusion as well as hemorrhagic damage to the brain. Linear areas of non flair suppression and diminished signal suggest possible subarachnoid hemorrhage
Echo 12/22/24 EF 60-65, mild LVH, mildly dilated LA, severe thickening of anterior and posterior mitral leaflets,mild-mod MR, mod sized 0.4 x 0/7 oscillating heterogeneous echodensity attahced to noncoronary cusp, mild-mod AR, PG 23.5/MG 13.1, small
pericardial effusion
Assessment:
-Strep Mutans AV endocarditis
-Acute hypoxic respiratory failure
-Strep Mutans bacteremia
-moderate AI
-moderate MR with RHONDA
-metastatic septic emboli to the brain, spleen
-oliguric CORNELIO on probable CKD IIIb
-Renal calculi
-coagulopathy
-transfusion dependent anemia
-thrombocytopenia
-unintentional weight loss
-dental cap dislodgement
-possible left mandibular canine abscess, per panelipse 12/27
-Panelipse from 12/27 showed suspicious lesion on the left mandibular canine concerning for possible abscess, seen by [facility] 12/29 and determined to be unremarkable, no intervention needed, outpt f/u
-hx anxiety/depression
-hx HTN
-hx opioid addiction per , prescribed for management of recurrent renal stones and escalated after his father's approx. 2 yrs ago (on Buprenorphine preop)
-Acute postop blood loss Anemia on probable Anemia of Chronic CKD (transfused 3u PRBC's, 2u FFPs)
-Acute postop thrombocytopenia (transfused 2 {5pks}of plts)
-Acute postop VDRF/hypoxemia
-Acute postop atelectasis
-Acute postop hypovolemia with subsequent hypervolemia
-Acute postop SAH involving frontal lobe, right parietal occipital lobe and left parietal lobe
-Acute postop suspected Hemorrhagic septic emboli
-Acute CORNELIO on suspected CKD
-Acute postop metabolic acidosis
-Acute postop hyponatremia
-
Discussed patient care with: Cardiology, Nursing, Respiratory Therapy, Pharmacy and Care Team
Subjective
-
Date of Service: January 07, 2025
Pt c/o needing more Xanax for his anxiety and Ambien for sleep
Objective Data
-
Lab Results
01/03/25 04:42
01/07/25 04:14
PT 16.9 Sec (11.4-14.6) H 01/06/25 04:18
INR 1.34 01/06/25 04:18
APTT 49.9 Sec (23.4-35.0) H 01/03/25 04:42
Vital Signs
Vital Signs
Temp Pulse Resp BP Pulse Ox
97.4 F 59 16 141/88 97
01/07/25 04:07 01/06/25 23:15 01/07/25 04:07 01/06/25 23:15 01/07/25 04:07
CT Intake/Output/Weight
01/06/25 01/06/25 01/07/25
06:59 18:59 06:59
Intake Total 240 / 480 50 / 50
Output Total 250 / 650 400 / 650
Balance 240 / 130 -200 / -600 -400 / -600
SaO2: 97 (RA)
Physical Exam
-
General: Awake, Oriented and AOx3
Cardiovascular: Regular rate & rhythm, No Murmurs, No Rub and No Gallop
Respiratory: Decreased Breath Sounds (at bases, otherwise clear)
Sternum: Stable
Incision: Clean, Dry, Intact and Dressing Intact
Extremities: Edema +3
Data Reviewed
-
Lab Results: Results Reviewed
Medications: Active Meds Reviewed
Chest X-Ray: Report Reviewed and Image Reviewed
ECG: Report Reviewed and Image Reviewed
[2025-01-07 05:29] LABS: INR 1.76; PT 21.0 Sec (11.4-14.6)
[2025-01-07] MEDS: TYLENOL 1000 MG PO ×3 (05:47→21:51)
[2025-01-07] MEDS: PACERONE 200 MG PO ×3 (08:41→21:50)
[2025-01-07] MEDS: PROZAC 40 MG PO (08:41)
[2025-01-07] MEDS: ROXICODONE 5 MG PO ×2 (08:41→15:14)
[2025-01-07] MEDS: MUCINEX 600 MG PO ×2 (08:41→20:04)
[2025-01-07] MEDS: NEURONTIN 300 MG PO ×2 (08:42→20:05)
[2025-01-07] MEDS: PROTONIX 40 MG PO (08:42)
[2025-01-07] MEDS: EDECRIN 50 MG PO ×2 (08:42→15:15)
[2025-01-07] MEDS: NORVASC 10 MG PO (08:43)
[2025-01-07] MEDS: LOW STRENGTH ASPIRIN 81 MG PO (08:43)
[2025-01-07] MEDS: COREG 12.5 MG PO ×2 (08:43→20:04)
[2025-01-07] MEDS: LIDOCAINE 4% PATCH TOPICAL (08:43)
[2025-01-07] MEDS: SENOKOT-S PO ×2 (08:44→20:05)
--- NOTE | 2025-01-07 09:22 | W.PN.NEURO.1 ---
Addendum entered and electronically signed by Ten Romo MD 01/07/25 16:11:
Of note is that the patient continues to have hemorrhagic changes by MRI of brain. If possible, would attempt to minimize exposure to antiplatelet and anticoagulation therapy. If not, would still presume that the patient will have gradual
improvement in hemorrhagic changes over time. If patient has significant worsening in cognitive function, would immediately perform head CT for evaluation.
Original Note:
Today's Communication / Plan
-
stop Levetiracetam, no clear need
No clear indication for repeated neuroimaging at this timeno clear indication for repeated neuroimaging at this time
Neuro Assessment/Plan
Assessment
I. Progressive multifocal SAH. Likely etiology�hemorrhagic conversion of multifocal embolic infarcts.
II. Streptococcus mutans endocarditis, s/p mechanical AVR
III. Encephalopathy (vascular, metabolic), clinically improved.
Plan
stop Levetiracetam, no clear need
No clear indication for repeated neuroimaging at this timeno clear indication for repeated neuroimaging at this time
Subjective/Objective
Subjective Data
Date of Service: January 07, 2025
Objective Data
Vital Signs
Temp Pulse Resp BP Pulse Ox
36.3 C 65 16 172/92 98
01/07/25 07:29 01/07/25 08:00 01/07/25 07:29 01/07/25 08:43 01/07/25 08:54
Lab Results
01/03/25 04:42
01/07/25 04:14
PT 21.0 Sec (11.4-14.6) H 01/07/25 04:14
INR 1.76 01/07/25 04:14
APTT 49.9 Sec (23.4-35.0) H 01/03/25 04:42
Sodium 138 mmol/L (135-145) 01/07/25 04:14
Potassium 5.1 mmol/L (3.5-5.1) 01/07/25 04:14
BUN 56 mg/dl (9-20) H 01/07/25 04:14
Glucose 96 mg/dl (70-99) 01/07/25 04:14
Calcium 8.2 mg/dl (8.4-10.2) L 01/07/25 04:14
Phosphorus 8.6 mg/dl (2.5-4.5) H 12/29/24 03:08
LDL Cholesterol, Calc Cancelled 01/01/25 12:16
Ur Buprenorphine Negative (Negative) 12/29/24 21:01
Patient Allergies
Sulfa (Sulfonamide Antibiotics) Allergy (Verified 12/26/24 21:26)
Anaphylaxis
sulfite Allergy (Verified 12/26/24 21:26)
Anaphylaxis
Data Reviewed
-
Labs: Report Reviewed
Reviewed with: Nurse
Old Records: Summarized
[2025-01-07] MEDS: KEPPRA IV (09:33)
--- NOTE | 2025-01-07 09:58 | W.PN.ID1 ---
Date of Service
Date of Service: January 07, 2025
Today's Communication
Continue Ertapenem.
Assessment / Plan
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
Suspected septic emboli to the brain
Subarachnoid hemorrhage
Leukocytosis; resolved
Renal insufficiency
Elevated ESR, CRP
HTN
DM type II
Nephrolithiasis
Recommendations:
Repeat blood cultures without growth.
Patient status post valve replacement with mechanical AVR (12/27/2024)
Aortic valve cx: Enterobacter cloacae (on enrichment broth only) - possibly contaminant.
To err on side of caution, treat both S. mutans and E. cloacae
-> Continue Ertapenem 1g IV q 24h x 6 weeks through 02/14/25.
Follow weekly CBC with diff, CMP.
Infusion sheet placed in chart. Case management aware.
���������������������������������������������������������
Chief Complaint
-: Other (Strep mutans endocarditis)
Subjective / Review of Systems
Tolerating abx.
Vital Signs / Physical Exam
Vital Signs
Vital Signs
Temp Pulse Resp BP Pulse Ox
97.4 F 65 16 172/92 98
01/07/25 07:29 01/07/25 08:00 01/07/25 07:29 01/07/25 08:43 01/07/25 08:54
Physical Exam
Constitutional: No Acute Distress and Comfortable
Cardiovascular: Regular Rate and S1/S2
Gastrointestinal: Soft, Non Tender and Non Distended
Extremities: Edema
Neurological: AO x 3
Lines: PICC
Objective Data
Lab Data
Lab Results
01/03/25 04:42
01/07/25 04:14
ESR 58 mm/hour (0-20) H 12/29/24 03:08
PT 21.0 Sec (11.4-14.6) H 01/07/25 04:14
INR 1.76 01/07/25 04:14
APTT 49.9 Sec (23.4-35.0) H 01/03/25 04:42
Estimated Creat Clear 61 ml/min 01/07/25 04:14
Lactic Acid 0.9 mmol/L (0.7-2.0) 12/28/24 03:11
Total Bilirubin 0.5 mg/dl (0.2-1.3) 12/28/24 17:33
AST 42 U/L (17-59) 12/28/24 17:33
ALT 14 U/L (0-50) 12/28/24 17:33
Alkaline Phosphatase 60 U/L (38-126) 12/28/24 17:33
C-Reactive Protein 48.80 mg/L (0.0-10.00) H 12/29/24 03:08
Most recent labs reviewed.
Micro Results:
12/27/24 17:06 Fungal Culture - Preliminary
Heart Culture in progress.
Positive cultures are reported as soon as detected.
Final report to follow in four to five weeks.
12/27/24 17:14 Fungal Culture - Preliminary
Heart Culture in progress.
Positive cultures are reported as soon as detected.
Final report to follow in four to five weeks.
12/30/24 11:06 Blood Culture - Final
Blood/Venous No Growth - Final Report
12/30/24 10:20 Blood Culture - Final
Blood/Venous No Growth - Final Report
12/27/24 17:06 Tissue Culture - Final
Heart Enterobacter cloacae
Gram Stain - Final
12/31/24 10:54 Respiratory Culture - Final
Sputum Elaine albicans
Gram Stain - Final
12/27/24 17:06 Anaerobic Culture - Final
Heart NO ANAEROBES ISOLATED
12/27/24 17:14 Anaerobic Culture - Final
Heart NO ANAEROBES ISOLATED
12/27/24 17:14 Tissue Culture - Final
Heart No Growth After 72 Hours
Gram Stain - Final
12/27/24 12:38 Blood Culture - Final
Blood/Venous No Growth - Final Report
12/27/24 11:47 Blood Culture - Final
Blood/Venous No Growth - Final Report
12/30/24 10:10 Urine Culture - Final
Urine NO GROWTH
12/27/24 15:00 Urine Culture - Final
Urine NO GROWTH
12/27/24 05:31 MRSA Screen - Final
Nose No Methicillin Resistant Staphylococcus aureus isolated.
12/18/2024
11:00 Blood culture ([facility])
Streptococcus mutans
Ampicillin <= 0.25 S
Cefotaxime <=0.12 S
Ceftriaxone <= 0.12 S
Erythromycin <= 0.12 S
Levofloxacin =1 S
Linezolid <= 2 S
Moxifloxacin =0.25 S
Penicillin G <= 0.06 S
Vancomycin =1 S
Imaging:
12/29/2024 CT head without contrast: 'MULTIFOCAL ACUTE SUBARACHNOID HEMORRHAGE with a new small subarachnoid hemorrhage over the inferolateral margin of the right frontal lobe. Small acute subarachnoid hemorrhages in the sulci medial to the right
frontal lobe, anterior to the left frontal lobe, medial to the right parietal-occipital lobe, and posterior to the left parietal lobe which appear unchanged. Hemorrhagic septic emboli is a diagnostic consideration given the history of endocarditis.'
12/25/2024 MRI brain (performed at [facility]): Multiple cortical and subcortical foci of diminished signal intensity on susceptibility weighted sequences. The sequence suggest the presence of blood products. Concern raised for septic
emboli which can demonstrate ischemic changes resulting in restriction diffusion, as well as hemorrhagic damage to the brain. Multiple small embolic infarcts also in the differential. Contrast enhanced examination failed to demonstrate enhancing
lesions or venous filling defects or prominent venous structures thus leptomeningeal carcinomatosis or venous congestion is not consistent with this study. Linear appearing areas of non-FLAIR suppression and diminished signal on susceptibility
weighted sequences suggest associated possible subarachnoid hemorrhage within the bilateral occipital lobes. Please see full dictation for additional detail.
12/22/2024 ECHO (TTE): LV EF = 60%. Mildly dilated left atrium. Severe thickening of the anterior and posterior leaflets of the mitral valve, but without clear vegetations. Moderate sized (0.4 x 0.7 cm oscillating heterogeneous echodensity
attached to the noncoronary cusp. Aortic valve is thickened and calcified with mild to moderate eccentric aortic regurgitation.
[2025-01-07] MEDS: INVANZ 60 MG IV (10:37)
[2025-01-07] MEDS: XANAX 0.5 MG PO ×2 (11:24→18:28)
--- NOTE | 2025-01-07 14:42 | CM ---
CM following for DC planning needs.
Plan is for rehab for both PT + IV ABT. Barrier to DC is lack of insurance ([place]- pending status).
Referrals sent to a number of facilities; only facility possibly willing to offer a bed is [facility].
I placed call to admissions today ([phone]); no available beds at this time but possibly one opening up. They need pt. to complete [place] paperwork and they will send to me. I will bring to patient/spouse once received.
Will cont. to follow.
--- NOTE | 2025-01-07 15:27 | W.PN.CD ---
Addendum entered and electronically signed by Tito Pizarro MD 01/07/25 16:17:
49 yo male with AV endocarditis, CVA due to septic emboli, now s/p mechanical AVR ?(On-X). He reports fatigue. Exam with RRR, +mechanical valve click, 1+ LE edema. INR 1.76. Tele: SR/SB 50-60s.
Mechanical AVR. Continue warfarin and ASA 81mg.
HTN. Continue coreg 12.5mg bid: BP is improving on higher dose.
Original Note:
Today's Communication / Plan
-
-warfarin being dosed by CT surgery- follow INR's
-continue BB. May need to increase based on BP trend, but better when I was in the room (130's) and just increased last night, so will monitor for now.
-continue ethacrynic acid and follow BP's
-neuro, nephro, ID, CT surgery all on the case
Impression / Plan
-
I/P: 49-year-old man with no previous cardiac history who presents with unintentional weight loss since October found to have aortic valve endocarditis complicated by septic emboli to the brain and spleen, s/p AoV replacement and extensive debridement
with Dr. Denney on 12/27/24. Course complicated by subarachnoid hemorrhage.
Outpatient Wrist Closer: [facility]
Strep mutans aortic valve endocarditis
- Complicated by CVA with hemorrhagic conversion, CORNELIO, & splenic infarct
- Now s/p complex open heart surgery (12/27/2024) with mechanical AVR, debridement LVOT/MV structures
- Continue antibiotic therapy per ID
Mechanical aortic valve replacement
-Warfarin dosing per CT surgery, 1.76 today
-Post AMANDA MG 11mg
Hypertension
-Amlodipine 10 mg
-continue Coreg- may increase further if BP's remain elevated, but BP in room currently in 130's and coreg just increased last evening, so will monitor trend
-Avoiding JUAN/ARB with recovering CORNELIO
LE edema
- B/L LE edema without orthopnea & without SOB
- On ethacrynic acid per nephrology- continue and monitor
Post op new LBBB/IVCD, follow telemetry:
-stable in SR
CORNELIO, nephrology following, possible infectious immune complex GN, creatinine continues to improve
CVA, MRI pending, LDL above goal at 72
Splenic infarct, in setting of endocarditis
Thrombocytopenia/anemia
History of opioid abuse, off Subutex, psychiatry has signed off
Subjective:
Incisional pain with movement. Using heart pillow. No SOB. I encouraged use of incentive spirometer.
Data:
OR, Dr. Denney, 12/27/2024:
Functionally bicuspid AV (with partial fusion of LCC and RCC), NCC w/ significant destruction w/ embolic vegetations on aortic and ventricular surfaces; one vegetation with very narrow stalk.
S/P mechanical AVR (25 mm On-X) s/p explant and redo AVR (23mm On-x), LVOT vegetation debridement, MV chordae vegetation resection and debridement.
Complicated by post op bleeding and re-exploration/venous bleeding and oozing from the sternum.
HEAD CT 12/31/24:
COMPARISON: 12/30/2024
The ventricles are normal in size, configuration, and position.
The previously seen small areas of high attenuation suggesting subarachnoid hemorrhage or hemorrhagic septic emboli are either stable or decreased.
There are no new similar findings. There is no intra- or extra-axial mass.
There is no midline shift nor mass effect. Visualized paranasal sinuses show minimal mucosal thickening of the right maxillary sinus.
IMPRESSION:
Improved or stable findings suggesting small foci of intracranial hemorrhage. No new pathology identified.
Physical Exam
Vital Signs/Labs
Vital Signs
Temp Pulse Resp BP Pulse Ox
97.8 F 66 16 168/91 98
01/07/25 15:22 01/07/25 11:02 01/07/25 15:22 01/07/25 11:02 01/07/25 15:22
06/01/07/25 01/08/25
06:59 06:59 06:59
Actual Weight 78.4 kg 77.3 kg
01/03/25 04:42
01/07/25 04:14
PT 21.0 Sec (11.4-14.6) H 01/07/25 04:14
INR 1.76 01/07/25 04:14
APTT 49.9 Sec (23.4-35.0) H 01/03/25 04:42
Magnesium 1.8 mg/dl (1.6-2.3) 01/05/25 03:55
Triglycerides Cancelled 01/01/25 12:16
LDL Cholesterol, Calc Cancelled 01/01/25 12:16
VLDL Cholesterol, Calc Cancelled 01/01/25 12:16
HDL Cholesterol Cancelled 01/01/25 12:16
Physical Exam
Constitutional: No acute distress
EENT: Anicteric
Cardiovascular: Rhythm & rate is regular
Respiratory: Respiratory effort normal and Lungs clear to auscul.
Neuro/Psych: AO x 3
Other: Skin (mid sternal incision well-approximated, no redness, drainage, or swelling)
Data Reviewed
-
Date of Service: January 07, 2025
EKG: Other (SR)
Labs: Labs Reviewed by me
[2025-01-07] MEDS: KCL PO (16:47)
[2025-01-07] MEDS: COUMADIN 1 MG PO (18:26)
--- NOTE | 2025-01-07 19:23 | PTCARENOTE ---
Pt OOB to chair for meals, walked in halls twice with RN with massive encouragement. Pt is fearful of falling but needs minimal assistance to stand. Pt walks with a steady gait using the walker but he is overwhelmed by being 'weak and tired' and
seems unwilling to try to get stronger. Pt taking xanax every 6-7 hours and getting pain relief with roxycodone. Telemetry shows sinus rhythm with first degree AV block and BBB.
[2025-01-07] MEDS: REMOVE LIDOCAINE PATCH REMOVE (20:05)
[2025-01-07] MEDS: AMBIEN 10 MG PO (21:51)
[2025-01-08] VITALS (12 sets, daily range): BP systolic 140–177; BP diastolic 82–100; BMI 24.6
[2025-01-08] MEDS: NORVASC 10 MG PO (02:53)
[2025-01-08 03:18] LABS: Hematocrit 24.1 % (39.0-52.0); Hemoglobin 8.1 g/dL (13.0-18.0); Mean Corp Hgb Conc. 33.6 g/dL (33.0-37.0); Mean Corpuscular Volume 86.4 fL (80.0-94.0); Platelet Count 226 10^3/uL (130-400); Red Cell Dist. Width 18.4 % (11.5-14.5)
[2025-01-08 03:24] LABS: INR 2.25; PT 25.4 Sec (11.4-14.6)
[2025-01-08 03:36] LABS: Blood Urea Nitrogen 49 mg/dl (9-20); Calcium 8.0 mg/dl (8.4-10.2); Carbon Dioxide 26 mmol/L (22-30); Chloride 110 mmol/L (98-107); Estimated Creatinine Clearance 61 ml/min; Glucose 93 mg/dl (70-99); Potassium 4.9 mmol/L (3.5-5.1); Sodium 138 mmol/L (135-145); eGFR 56.37
[2025-01-08] MEDS: ROXICODONE 5 MG PO (05:29)
[2025-01-08] MEDS: TYLENOL 1000 MG PO ×3 (05:29→21:21)
--- NOTE | 2025-01-08 05:53 | PTCARENOTE ---
Pt. slept well overnight following Ambien administration. NSR on the monitor. OOB with assist x 1 & RW this morning, weak to stand but steadily takes a few steps at a time before he has to sit due to generalized weakness. BP elevated (SBP 170's)
- instructed to give 0800 amlodipine dose early by [facility]. CHG wipe bath completed. Pt. resting quietly.
--- NOTE | 2025-01-08 08:34 | W.PN.CT ---
Today's Communication / Plan
-
-pod # 12
-no issues overnight. A&O x3
-INR 2.25 today (got Coumadin 1 mg on 01/05, 2.5 mg on 01/06, 1 mg on 01/07).
-gave Norvasc early today for HTN - 160s-170s this am
-weaned off O2 - pox 98% on RA
-Cr improving - 1.5 today
-encourage IS, OOB, ambulate
Assessment / Plan
-
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
and debridement, c/b post op bleeding from CT and re-exploration/venous bleeding and oozing from the sternum on 12/27/[address] Denney, POD #11
Post-AMANDA: Normal biventricular function w/ LVEF 65%, well-seated AVR w/ mean gradient 11mmHg, normal washing jets. MV w/ MILD-to-mod regurgitation w/ improvement in preoperative RHONDA.
EKG 12/27/24 NSR 1st degree AVB
Radiology: CT [place]: Sm L pleural effusion, mod ascities, mod splenomegaly hypodense lesion upper pole of spleen concern for splenic infarct. MRI: 12/23/24 Multiple cortical and subcortical foci concern for septic emboli which can demonstrate
ischemic changes with restricted diffusion as well as hemorrhagic damage to the brain. Linear areas of non flair suppression and diminished signal suggest possible subarachnoid hemorrhage
Echo 12/22/24 EF 60-65, mild LVH, mildly dilated LA, severe thickening of anterior and posterior mitral leaflets,mild-mod MR, mod sized 0.4 x 0/7 oscillating heterogeneous echodensity attahced to noncoronary cusp, mild-mod AR, PG 23.5/MG 13.1, small
pericardial effusion
Assessment:
-Strep Mutans AV endocarditis
-Acute hypoxic respiratory failure
-Strep Mutans bacteremia
-moderate AI
-moderate MR with RHONDA
-metastatic septic emboli to the brain, spleen
-oliguric CORNELIO on probable CKD IIIb
-Renal calculi
-coagulopathy
-transfusion dependent anemia
-thrombocytopenia
-unintentional weight loss
-dental cap dislodgement
-possible left mandibular canine abscess, per panelipse 12/27
-Panelipse from 12/27 showed suspicious lesion on the left mandibular canine concerning for possible abscess, seen by OMF 12/29 and determined to be unremarkable, no intervention needed, outpt f/u
-hx anxiety/depression
-hx HTN
-hx opioid addiction per , prescribed for management of recurrent renal stones and escalated after his father's approx. 2 yrs ago (on Buprenorphine preop)
-Acute postop blood loss Anemia on probable Anemia of Chronic CKD (transfused 3u PRBC's, 2u FFPs)
-Acute postop thrombocytopenia (transfused 2 {5pks}of plts)
-Acute postop VDRF/hypoxemia
-Acute postop atelectasis
-Acute postop hypovolemia with subsequent hypervolemia
-Acute postop SAH involving frontal lobe, right parietal occipital lobe and left parietal lobe
-Acute postop suspected Hemorrhagic septic emboli
-Acute CORNELIO on suspected CKD
-Acute postop metabolic acidosis
-Acute postop hyponatremia
-
Discussed patient care with: Nursing and Care Team
Subjective
-
Date of Service: January 08, 2025
Objective Data
-
Lab Results
01/08/25 02:45
01/08/25 02:45
PT 25.4 Sec (11.4-14.6) H 01/08/25 02:45
INR 2.25 01/08/25 02:45
APTT 49.9 Sec (23.4-35.0) H 01/03/25 04:42
Vital Signs
Vital Signs
Temp Pulse Resp BP Pulse Ox
97.5 F 68 18 151/98 99
01/08/25 07:25 01/08/25 08:00 01/08/25 07:25 01/08/25 07:24 01/08/25 07:25
CT Intake/Output/Weight
01/07/25 01/08/25 01/08/25
18:59 06:59 18:59
Intake Total 480 / 720 240 / 720
Output Total 600 / 600
Balance 480 / 120 -360 / 120
SaO2: 99
Physical Exam
-
General: Awake and AOx3
Cardiovascular: Regular rate & rhythm (sharp S2 click), No Murmurs and No Rub
Respiratory: Decreased Breath Sounds
Sternum: Stable
Incision: Clean, Dry and Intact
Extremities: Edema +2
Abdomen: soft, nontender, nondistended, + bowel sounds
Data Reviewed
-
Lab Results: Results Reviewed
Medications: Active Meds Reviewed
Chest X-Ray: Report Reviewed and Image Reviewed
ECG: Report Reviewed and Image Reviewed
[2025-01-08] MEDS: MUCINEX 600 MG PO ×2 (08:44→20:08)
[2025-01-08] MEDS: PROTONIX 40 MG PO (08:44)
[2025-01-08] MEDS: EDECRIN 50 MG PO ×2 (08:44→15:55)
[2025-01-08] MEDS: XANAX 0.5 MG PO (08:44)
[2025-01-08] MEDS: COREG 12.5 MG PO ×2 (08:44→10:29)
[2025-01-08] MEDS: PROZAC 40 MG PO (08:45)
[2025-01-08] MEDS: LOW STRENGTH ASPIRIN 81 MG PO (08:45)
[2025-01-08] MEDS: LIDOCAINE 4% PATCH TOPICAL (08:45)
[2025-01-08] MEDS: NEURONTIN 300 MG PO ×2 (08:45→20:08)
[2025-01-08] MEDS: PACERONE 200 MG PO ×3 (08:45→21:21)
[2025-01-08] MEDS: SENOKOT-S PO ×2 (09:20→20:09)
[2025-01-08] MEDS: INVANZ 60 MG IV (09:29)
--- NOTE | 2025-01-08 11:05 | W.PN.CD ---
Today's Communication / Plan
-
increase coreg to 25mg bid
add hydralazine 10mg tid next if BP remains high
Impression / Plan
-
I/P: 49-year-old man with no previous cardiac history who presents with unintentional weight loss since October found to have aortic valve endocarditis complicated by septic emboli to the brain and spleen, s/p AoV replacement and extensive debridement
with Dr. Denney on 12/27/24. Course complicated by subarachnoid hemorrhage.
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
Strep mutans aortic valve endocarditis
- Complicated by CVA with hemorrhagic conversion, CORNELIO, & splenic infarct
- Now s/p complex open heart surgery (12/27/2024) with mechanical AVR, debridement LVOT/MV structures
- Continue antibiotic therapy per ID
Mechanical aortic valve replacement: On-X
-Warfarin and ASA 81mg
-Post AMANDA MG 11mg
Hypertension
-continue Amlodipine 10 mg
-increase coreg to 25mg bid
-add hydralazine 10mg tid next if BP remains high
-Avoiding JUAN/ARB with recovering CORNELIO
LE edema
- B/L LE edema without orthopnea & without SOB
- On ethacrynic acid per nephrology- continue and monitor
Post op new LBBB/IVCD, follow telemetry:
-stable in SR
CORNELIO, nephrology following, possible infectious immune complex GN, creatinine continues to improve
CVA, MRI pending, LDL above goal at 72
Splenic infarct, in setting of endocarditis
Thrombocytopenia/anemia
History of opioid abuse, off Subutex, psychiatry has signed off
Data:
OR, Dr. Denney, 12/27/2024:
Functionally bicuspid AV (with partial fusion of LCC and RCC), NCC w/ significant destruction w/ embolic vegetations on aortic and ventricular surfaces; one vegetation with very narrow stalk.
S/P mechanical AVR (25 mm On-X) s/p explant and redo AVR (23mm On-x), LVOT vegetation debridement, MV chordae vegetation resection and debridement.
Complicated by post op bleeding and re-exploration/venous bleeding and oozing from the sternum.
HEAD CT 12/31/24:
COMPARISON: 12/30/2024
The ventricles are normal in size, configuration, and position.
The previously seen small areas of high attenuation suggesting subarachnoid hemorrhage or hemorrhagic septic emboli are either stable or decreased.
There are no new similar findings. There is no intra- or extra-axial mass.
There is no midline shift nor mass effect. Visualized paranasal sinuses show minimal mucosal thickening of the right maxillary sinus.
IMPRESSION:
Improved or stable findings suggesting small foci of intracranial hemorrhage. No new pathology identified.
Physical Exam
Vital Signs/Labs
Vital Signs
Temp Pulse Resp BP Pulse Ox
97.5 F 68 18 151/94 99
01/08/25 07:25 01/08/25 10:29 01/08/25 07:25 01/08/25 10:29 01/08/25 08:39
01/07/25 01/08/25 01/09/25
06:59 06:59 06:59
Actual Weight 77.3 kg 77.7 kg
01/08/25 02:45
01/08/25 02:45
PT 25.4 Sec (11.4-14.6) H 01/08/25 02:45
INR 2.25 01/08/25 02:45
APTT 49.9 Sec (23.4-35.0) H 01/03/25 04:42
Magnesium 1.8 mg/dl (1.6-2.3) 01/05/25 03:55
Triglycerides Cancelled 01/01/25 12:16
LDL Cholesterol, Calc Cancelled 01/01/25 12:16
VLDL Cholesterol, Calc Cancelled 01/01/25 12:16
HDL Cholesterol Cancelled 01/01/25 12:16
Physical Exam
Constitutional: No acute distress
EENT: Moist mucous membranes
Cardiovascular: Rhythm & rate is regular, JVD pressure is normal, Pedal edema present and Other (+mechanical valve click)
Respiratory: Respiratory effort normal
Neuro/Psych: Alert and Oriented
Data Reviewed
-
Date of Service: January 08, 2025
EKG: Other (Tele: SR 60s)
Labs: Labs Reviewed by me
--- NOTE | 2025-01-08 11:35 | CM ---
CM continues to follow for DC planning needs.
A number of intermediate referrals have been sent; only interest has been from [facility] in . Currently, however, they do not have a male bed. They will also need a MA questionnaire sent to us for patient/ spouse to complete. I have called
again today to request this questionnaire.
At this time, no viable intermediate option. Will continue efforts to place.
[2025-01-08] MEDS: KCL PO (14:34)
--- NOTE | 2025-01-08 16:18 | W.PN.ID1 ---
Date of Service
Date of Service: January 08, 2025
Today's Communication
Continue Ertapenem.
Assessment / Plan
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
Suspected septic emboli to the brain
Subarachnoid hemorrhage
Leukocytosis; resolved
Renal insufficiency
Elevated ESR, CRP
HTN
DM type II
Nephrolithiasis
Recommendations:
Repeat blood cultures without growth.
Patient status post valve replacement with mechanical AVR (12/27/2024)
Aortic valve cx: Enterobacter cloacae (on enrichment broth only) - possibly contaminant.
To err on side of caution, treat both S. mutans and E. cloacae
-> Continue Ertapenem 1g IV q 24h x 6 weeks through 02/14/25.
Follow weekly CBC with diff, CMP.
Infusion sheet placed in chart. Case management aware.
���������������������������������������������������������
Chief Complaint
-: Other (Strep mutans endocarditis)
Vital Signs / Physical Exam
Vital Signs
Vital Signs
Temp Pulse Resp BP Pulse Ox
97.9 F 60 20 140/82 97
01/08/25 14:59 01/08/25 15:00 01/08/25 14:59 01/08/25 14:58 01/08/25 14:59
Physical Exam
Constitutional: Chronically Ill
Cardiovascular: Regular Rate and S1/S2
Gastrointestinal: Soft, Non Tender and Non Distended
Extremities: Edema
Neurological: AO x 3
Lines: PICC
Objective Data
Lab Data
Lab Results
01/08/25 02:45
01/08/25 02:45
ESR 58 mm/hour (0-20) H 12/29/24 03:08
PT 25.4 Sec (11.4-14.6) H 01/08/25 02:45
INR 2.25 01/08/25 02:45
APTT 49.9 Sec (23.4-35.0) H 01/03/25 04:42
Estimated Creat Clear 61 ml/min 01/08/25 02:45
Lactic Acid 0.9 mmol/L (0.7-2.0) 12/28/24 03:11
Total Bilirubin 0.5 mg/dl (0.2-1.3) 12/28/24 17:33
AST 42 U/L (17-59) 12/28/24 17:33
ALT 14 U/L (0-50) 12/28/24 17:33
Alkaline Phosphatase 60 U/L (38-126) 12/28/24 17:33
C-Reactive Protein 48.80 mg/L (0.0-10.00) H 12/29/24 03:08
Most recent labs reviewed.
Micro Results:
12/27/24 17:06 Fungal Culture - Preliminary
Heart Culture in progress.
Positive cultures are reported as soon as detected.
Final report to follow in four to five weeks.
12/27/24 17:14 Fungal Culture - Preliminary
Heart Culture in progress.
Positive cultures are reported as soon as detected.
Final report to follow in four to five weeks.
12/30/24 11:06 Blood Culture - Final
Blood/Venous No Growth - Final Report
12/30/24 10:20 Blood Culture - Final
Blood/Venous No Growth - Final Report
12/27/24 17:06 Tissue Culture - Final
Heart Enterobacter cloacae
Gram Stain - Final
12/31/24 10:54 Respiratory Culture - Final
Sputum Elaine albicans
Gram Stain - Final
12/27/24 17:06 Anaerobic Culture - Final
Heart NO ANAEROBES ISOLATED
12/27/24 17:14 Anaerobic Culture - Final
Heart NO ANAEROBES ISOLATED
12/27/24 17:14 Tissue Culture - Final
Heart No Growth After 72 Hours
Gram Stain - Final
12/27/24 12:38 Blood Culture - Final
Blood/Venous No Growth - Final Report
12/27/24 11:47 Blood Culture - Final
Blood/Venous No Growth - Final Report
12/30/24 10:10 Urine Culture - Final
Urine NO GROWTH
12/27/24 15:00 Urine Culture - Final
Urine NO GROWTH
12/27/24 05:31 MRSA Screen - Final
Nose No Methicillin Resistant Staphylococcus aureus isolated.
12/18/2024
11:00 Blood culture ([facility])
Streptococcus mutans
Ampicillin <= 0.25 S
Cefotaxime <=0.12 S
Ceftriaxone <= 0.12 S
Erythromycin <= 0.12 S
Levofloxacin =1 S
Linezolid <= 2 S
Moxifloxacin =0.25 S
Penicillin G <= 0.06 S
Vancomycin =1 S
Imaging:
12/29/2024 CT head without contrast: 'MULTIFOCAL ACUTE SUBARACHNOID HEMORRHAGE with a new small subarachnoid hemorrhage over the inferolateral margin of the right frontal lobe. Small acute subarachnoid hemorrhages in the sulci medial to the right
frontal lobe, anterior to the left frontal lobe, medial to the right parietal-occipital lobe, and posterior to the left parietal lobe which appear unchanged. Hemorrhagic septic emboli is a diagnostic consideration given the history of endocarditis.'
12/25/2024 MRI brain (performed at [facility]): Multiple cortical and subcortical foci of diminished signal intensity on susceptibility weighted sequences. The sequence suggest the presence of blood products. Concern raised for septic
emboli which can demonstrate ischemic changes resulting in restriction diffusion, as well as hemorrhagic damage to the brain. Multiple small embolic infarcts also in the differential. Contrast enhanced examination failed to demonstrate enhancing
lesions or venous filling defects or prominent venous structures thus leptomeningeal carcinomatosis or venous congestion is not consistent with this study. Linear appearing areas of non-FLAIR suppression and diminished signal on susceptibility
weighted sequences suggest associated possible subarachnoid hemorrhage within the bilateral occipital lobes. Please see full dictation for additional detail.
12/22/2024 ECHO (TTE): LV EF = 60%. Mildly dilated left atrium. Severe thickening of the anterior and posterior leaflets of the mitral valve, but without clear vegetations. Moderate sized (0.4 x 0.7 cm oscillating heterogeneous echodensity
attached to the noncoronary cusp. Aortic valve is thickened and calcified with mild to moderate eccentric aortic regurgitation.
[2025-01-08] MEDS: COUMADIN 1 MG PO (18:07)
--- NOTE | 2025-01-08 18:35 | PTCARENOTE ---
Pt OOB to chair and walked in [place] with great encouragement. Pt slightly more motivated and willing to move today. Telemetry shows sinus rhythm.
[2025-01-08] MEDS: COREG 25 MG PO (20:08)
[2025-01-08] MEDS: REMOVE LIDOCAINE PATCH REMOVE (20:08)
[2025-01-08] MEDS: AMBIEN 10 MG PO (21:21)
[2025-01-09] VITALS (10 sets, daily range): BP systolic 121–168; BP diastolic 45–95; PULSE 60–61; O2SAT 98; BMI 24.4
[2025-01-09] MEDS: ROXICODONE 5 MG PO ×2 (05:08→15:31)
[2025-01-09] MEDS: TYLENOL 1000 MG PO ×3 (05:09→22:06)
[2025-01-09] MEDS: APRESOLINE 10 MG PO (05:13)
[2025-01-09 05:35] LABS: Hematocrit 24.5 % (39.0-52.0); Hemoglobin 8.3 g/dL (13.0-18.0); Mean Corp Hgb Conc. 33.9 g/dL (33.0-37.0); Mean Corpuscular Volume 85.7 fL (80.0-94.0); Platelet Count 226 10^3/uL (130-400); Red Cell Dist. Width 18.5 % (11.5-14.5)
[2025-01-09 05:50] LABS: INR 2.25; PT 25.0 Sec (11.4-14.6)
[2025-01-09 06:08] LABS: Blood Urea Nitrogen 45 mg/dl (9-20); Calcium 8.0 mg/dl (8.4-10.2); Carbon Dioxide 25 mmol/L (22-30); Chloride 110 mmol/L (98-107); Estimated Creatinine Clearance 65 ml/min; Glucose 95 mg/dl (70-99); Potassium 5.0 mmol/L (3.5-5.1); Sodium 139 mmol/L (135-145); eGFR > 60.00
--- NOTE | 2025-01-09 08:44 | W.PN.CT ---
Today's Communication / Plan
-
-pod # 13
-no issues overnight. A&O x3
-INR 2.25 today (got Coumadin 1 mg on 01/05, 2.5 mg on 01/06, 1 mg on 01/07, 1 mg on 01/08).
-weaned off O2 - pox 98% on RA
-Cr improving - 1.4 today
-encourage IS, OOB, ambulate
-appreciate everyone's input
Assessment / Plan
-
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
and debridement, c/b post op bleeding from CT and re-exploration/venous bleeding and oozing from the sternum on 12/27/[address] Denney, POD #13
Post-AMANDA: Normal biventricular function w/ LVEF 65%, well-seated AVR w/ mean gradient 11mmHg, normal washing jets. MV w/ MILD-to-mod regurgitation w/ improvement in preoperative RHONDA.
EKG 12/27/24 NSR 1st degree AVB
Radiology: CT [place]: Sm L pleural effusion, mod ascities, mod splenomegaly hypodense lesion upper pole of spleen concern for splenic infarct. MRI: 12/23/24 Multiple cortical and subcortical foci concern for septic emboli which can demonstrate
ischemic changes with restricted diffusion as well as hemorrhagic damage to the brain. Linear areas of non flair suppression and diminished signal suggest possible subarachnoid hemorrhage
Echo 12/22/24 EF 60-65, mild LVH, mildly dilated LA, severe thickening of anterior and posterior mitral leaflets,mild-mod MR, mod sized 0.4 x 0/7 oscillating heterogeneous echodensity attahced to noncoronary cusp, mild-mod AR, PG 23.5/MG 13.1, small
pericardial effusion
Assessment:
-Strep Mutans AV endocarditis
-Acute hypoxic respiratory failure
-Strep Mutans bacteremia
-moderate AI
-moderate MR with RHONDA
-metastatic septic emboli to the brain, spleen
-oliguric CORNELIO on probable CKD IIIb
-Renal calculi
-coagulopathy
-transfusion dependent anemia
-thrombocytopenia
-unintentional weight loss
-dental cap dislodgement
-possible left mandibular canine abscess, per panelipse 12/27
-Panelipse from 12/27 showed suspicious lesion on the left mandibular canine concerning for possible abscess, seen by OMF 12/29 and determined to be unremarkable, no intervention needed, outpt f/u
-hx anxiety/depression
-hx HTN
-hx opioid addiction per , prescribed for management of recurrent renal stones and escalated after his father's approx. 2 yrs ago (on Buprenorphine preop)
-Acute postop blood loss Anemia on probable Anemia of Chronic CKD (transfused 3u PRBC's, 2u FFPs)
-Acute postop thrombocytopenia (transfused 2 {5pks}of plts)
-Acute postop VDRF/hypoxemia
-Acute postop atelectasis
-Acute postop hypovolemia with subsequent hypervolemia
-Acute postop SAH involving frontal lobe, right parietal occipital lobe and left parietal lobe
-Acute postop suspected Hemorrhagic septic emboli
-Acute CORNELIO on suspected CKD
-Acute postop metabolic acidosis
-Acute postop hyponatremia
-
Discussed patient care with: Nursing and Care Team
Subjective
-
Date of Service: January 09, 2025
Objective Data
-
Lab Results
01/09/25 05:19
01/09/25 05:19
PT 25.0 Sec (11.4-14.6) H 01/09/25 05:19
INR 2.25 01/09/25 05:19
APTT 49.9 Sec (23.4-35.0) H 01/03/25 04:42
Vital Signs
Vital Signs
Temp Pulse Resp BP Pulse Ox
97.6 F 72 18 168/94 97
01/09/25 08:20 01/09/25 08:20 01/09/25 08:20 01/09/25 05:13 01/09/25 08:20
CT Intake/Output/Weight
01/08/25 01/09/25 01/09/25
18:59 06:59 18:59
Intake Total 120 / 360 240 / 360
Output Total 475 / 675 200 / 675
Balance -355 / -315 40 / -315
SaO2: 97
Physical Exam
-
General: Awake and AOx3
Cardiovascular: Regular rate & rhythm (sharp S2 click), No Murmurs and No Rub
Respiratory: Decreased Breath Sounds
Sternum: Stable
Incision: Clean, Dry and Intact
Abdomen: soft, nontender, nondistended, + bowel sounds
Extremities: Edema +2
Data Reviewed
-
Lab Results: Results Reviewed
Medications: Active Meds Reviewed
Chest X-Ray: Report Reviewed and Image Reviewed
ECG: Report Reviewed and Image Reviewed
[2025-01-09] MEDS: INVANZ 60 MG IV (09:15)
[2025-01-09] MEDS: EDECRIN 50 MG PO ×2 (09:18→15:31)
[2025-01-09] MEDS: PROZAC 40 MG PO (09:19)
[2025-01-09] MEDS: LOW STRENGTH ASPIRIN 81 MG PO (09:20)
[2025-01-09] MEDS: COREG 25 MG PO ×2 (09:20→19:53)
[2025-01-09] MEDS: MUCINEX 600 MG PO ×2 (09:20→19:53)
[2025-01-09] MEDS: PROTONIX 40 MG PO (09:20)
[2025-01-09] MEDS: NORVASC 10 MG PO (09:21)
[2025-01-09] MEDS: NEURONTIN 300 MG PO ×2 (09:21→19:53)
[2025-01-09] MEDS: PACERONE 200 MG PO ×3 (09:21→22:06)
--- NOTE | 2025-01-09 09:29 | W.PN.CD ---
Today's Communication / Plan
-
add hydralazine 10mg tid
Impression / Plan
-
I/P: 49-year-old man with no previous cardiac history who presents with unintentional weight loss since October found to have aortic valve endocarditis complicated by septic emboli to the brain and spleen, s/p AoV replacement and extensive debridement
with Dr. Denney on 12/27/24. Course complicated by subarachnoid hemorrhage.
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
Strep mutans aortic valve endocarditis
- Complicated by CVA with hemorrhagic conversion, CORNELIO, & splenic infarct
- Now s/p complex open heart surgery (12/27/2024) with mechanical AVR, debridement LVOT/MV structures
- Continue antibiotic therapy per ID
Mechanical aortic valve replacement: On-X
-Warfarin and ASA 81mg
-Post AMANDA MG 11mg
Hypertension
-continue Amlodipine 10 mg
-increase coreg to 25mg bid
-add hydralazine 10mg tid
-Avoiding JUAN/ARB with recovering CORNELIO
LE edema
- B/L LE edema without orthopnea & without SOB
- On ethacrynic acid per nephrology- continue and monitor
Post op new LBBB/IVCD, follow telemetry:
-stable in SR
CORNELIO, nephrology following, possible infectious immune complex GN, creatinine continues to improve
CVA, MRI pending, LDL above goal at 72
Splenic infarct, in setting of endocarditis
Thrombocytopenia/anemia
History of opioid abuse, off Subutex, psychiatry has signed off
Data:
OR, Dr. Denney, 12/27/2024:
Functionally bicuspid AV (with partial fusion of LCC and RCC), NCC w/ significant destruction w/ embolic vegetations on aortic and ventricular surfaces; one vegetation with very narrow stalk.
S/P mechanical AVR (25 mm On-X) s/p explant and redo AVR (23mm On-x), LVOT vegetation debridement, MV chordae vegetation resection and debridement.
Complicated by post op bleeding and re-exploration/venous bleeding and oozing from the sternum.
HEAD CT 12/31/24:
COMPARISON: 12/30/2024
The ventricles are normal in size, configuration, and position.
The previously seen small areas of high attenuation suggesting subarachnoid hemorrhage or hemorrhagic septic emboli are either stable or decreased.
There are no new similar findings. There is no intra- or extra-axial mass.
There is no midline shift nor mass effect. Visualized paranasal sinuses show minimal mucosal thickening of the right maxillary sinus.
IMPRESSION:
Improved or stable findings suggesting small foci of intracranial hemorrhage. No new pathology identified.
Physical Exam
Vital Signs/Labs
Vital Signs
Temp Pulse Resp BP Pulse Ox
97.6 F 73 18 164/95 97
01/09/25 08:20 01/09/25 09:21 01/09/25 08:20 01/09/25 09:21 01/09/25 08:48
01/08/25 01/09/25 01/10/25
06:59 06:59 06:59
Actual Weight 77.7 kg 77.1 kg
01/09/25 05:19
01/09/25 05:19
PT 25.0 Sec (11.4-14.6) H 01/09/25 05:19
INR 2.25 01/09/25 05:19
APTT 49.9 Sec (23.4-35.0) H 01/03/25 04:42
Magnesium 1.8 mg/dl (1.6-2.3) 01/05/25 03:55
Triglycerides Cancelled 01/01/25 12:16
LDL Cholesterol, Calc Cancelled 01/01/25 12:16
VLDL Cholesterol, Calc Cancelled 01/01/25 12:16
HDL Cholesterol Cancelled 01/01/25 12:16
Physical Exam
Constitutional: No acute distress
EENT: Moist mucous membranes
Cardiovascular: Rhythm & rate is regular, JVD pressure is normal, Systolic murmur absent and Pedal edema present
Respiratory: Respiratory effort normal and Lungs clear to auscul.
Neuro/Psych: AO x 3
Data Reviewed
-
Date of Service: January 09, 2025
EKG: Other (Tele: SR 60s)
Labs: Labs Reviewed by me
[2025-01-09] MEDS: KCL PO (09:31)
[2025-01-09] MEDS: LIDOCAINE 4% PATCH TOPICAL (09:32)
[2025-01-09] MEDS: SENOKOT-S PO ×2 (09:32→19:54)
--- NOTE | 2025-01-09 11:41 | CM ---
Addendum entered by NILS Balderas 01/09/25 16:57:
Obtained MA questionnaire from [facility]. Placed at patient's bedside to complete.
Will follow up [facility] on Sunday re: beds and patient re: completion of paperwork to send to [facility].
Original Note:
continues to follow for DC planning needs.
Attempted to meet w/ patient at bedside, patient asleep. Will re-attempt later.
DC plan is for inpatient rehab for PT and IV ABT. Pt. has no medical insurance.
Referrals have been sent without interest except [facility] @ [place]. [facility] has NO beds at this time but 2 potential openings.
Awaiting Medical Assistance Questionnaire as requested by [facility]. Call to [facility] again today to request this. Continue to await this.
DC plan continues to be inpatient rehab. Will continue efforts to place.
--- NOTE | 2025-01-09 12:04 | W.PN.ID1 ---
Date of Service
Date of Service: January 09, 2025
Today's Communication
Continue Ertapenem.
Assessment / Plan
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
Suspected septic emboli to the brain
Subarachnoid hemorrhage
Leukocytosis; resolved
Renal insufficiency
Elevated ESR, CRP
HTN
DM type II
Nephrolithiasis
Recommendations:
Repeat blood cultures without growth.
Patient status post valve replacement with mechanical AVR (12/27/2024)
Aortic valve cx: Enterobacter cloacae (on enrichment broth only) - possibly contaminant.
To err on side of caution, treat both S. mutans and E. cloacae
-> Continue Ertapenem 1g IV q 24h x 6 weeks through 02/14/25.
Follow weekly CBC with diff, CMP.
Infusion sheet placed in chart. Case management aware.
���������������������������������������������������������
Chief Complaint
-: Other (Strep mutans endocarditis)
Subjective / Review of Systems
No complaints.
Vital Signs / Physical Exam
Vital Signs
Vital Signs
Temp Pulse Resp BP Pulse Ox
98.3 F 58 16 164/95 98
01/09/25 11:43 01/09/25 11:43 01/09/25 11:43 01/09/25 09:21 01/09/25 11:43
Physical Exam
Constitutional: Chronically Ill
Cardiovascular: Regular Rate and S1/S2
Gastrointestinal: Soft, Non Tender and Non Distended
Extremities: Edema
Neurological: AO x 3
Lines: PICC
Objective Data
Lab Data
Lab Results
01/09/25 05:19
01/09/25 05:19
ESR 58 mm/hour (0-20) H 12/29/24 03:08
PT 25.0 Sec (11.4-14.6) H 01/09/25 05:19
INR 2.25 01/09/25 05:19
APTT 49.9 Sec (23.4-35.0) H 01/03/25 04:42
Estimated Creat Clear 65 ml/min 01/09/25 05:19
Lactic Acid 0.9 mmol/L (0.7-2.0) 12/28/24 03:11
Total Bilirubin 0.5 mg/dl (0.2-1.3) 12/28/24 17:33
AST 42 U/L (17-59) 12/28/24 17:33
ALT 14 U/L (0-50) 12/28/24 17:33
Alkaline Phosphatase 60 U/L (38-126) 12/28/24 17:33
C-Reactive Protein 48.80 mg/L (0.0-10.00) H 12/29/24 03:08
Most recent labs reviewed.
Micro Results:
12/27/24 17:06 Fungal Culture - Preliminary
Heart Culture in progress.
Positive cultures are reported as soon as detected.
Final report to follow in four to five weeks.
12/27/24 17:14 Fungal Culture - Preliminary
Heart Culture in progress.
Positive cultures are reported as soon as detected.
Final report to follow in four to five weeks.
12/30/24 11:06 Blood Culture - Final
Blood/Venous No Growth - Final Report
12/30/24 10:20 Blood Culture - Final
Blood/Venous No Growth - Final Report
12/27/24 17:06 Tissue Culture - Final
Heart Enterobacter cloacae
Gram Stain - Final
12/31/24 10:54 Respiratory Culture - Final
Sputum Elaine albicans
Gram Stain - Final
12/27/24 17:06 Anaerobic Culture - Final
Heart NO ANAEROBES ISOLATED
12/27/24 17:14 Anaerobic Culture - Final
Heart NO ANAEROBES ISOLATED
12/27/24 17:14 Tissue Culture - Final
Heart No Growth After 72 Hours
Gram Stain - Final
12/27/24 12:38 Blood Culture - Final
Blood/Venous No Growth - Final Report
12/27/24 11:47 Blood Culture - Final
Blood/Venous No Growth - Final Report
12/30/24 10:10 Urine Culture - Final
Urine NO GROWTH
12/27/24 15:00 Urine Culture - Final
Urine NO GROWTH
12/27/24 05:31 MRSA Screen - Final
Nose No Methicillin Resistant Staphylococcus aureus isolated.
12/18/2024
11:00 Blood culture ([facility])
Streptococcus mutans
Ampicillin <= 0.25 S
Cefotaxime <=0.12 S
Ceftriaxone <= 0.12 S
Erythromycin <= 0.12 S
Levofloxacin =1 S
Linezolid <= 2 S
Moxifloxacin =0.25 S
Penicillin G <= 0.06 S
Vancomycin =1 S
Imaging:
12/29/2024 CT head without contrast: 'MULTIFOCAL ACUTE SUBARACHNOID HEMORRHAGE with a new small subarachnoid hemorrhage over the inferolateral margin of the right frontal lobe. Small acute subarachnoid hemorrhages in the sulci medial to the right
frontal lobe, anterior to the left frontal lobe, medial to the right parietal-occipital lobe, and posterior to the left parietal lobe which appear unchanged. Hemorrhagic septic emboli is a diagnostic consideration given the history of endocarditis.'
12/25/2024 MRI brain (performed at [facility]): Multiple cortical and subcortical foci of diminished signal intensity on susceptibility weighted sequences. The sequence suggest the presence of blood products. Concern raised for septic
emboli which can demonstrate ischemic changes resulting in restriction diffusion, as well as hemorrhagic damage to the brain. Multiple small embolic infarcts also in the differential. Contrast enhanced examination failed to demonstrate enhancing
lesions or venous filling defects or prominent venous structures thus leptomeningeal carcinomatosis or venous congestion is not consistent with this study. Linear appearing areas of non-FLAIR suppression and diminished signal on susceptibility
weighted sequences suggest associated possible subarachnoid hemorrhage within the bilateral occipital lobes. Please see full dictation for additional detail.
12/22/2024 ECHO ([facility]E): LV EF = 60%. Mildly dilated left atrium. Severe thickening of the anterior and posterior leaflets of the mitral valve, but without clear vegetations. Moderate sized (0.4 x 0.7 cm oscillating heterogeneous echodensity
attached to the noncoronary cusp. Aortic valve is thickened and calcified with mild to moderate eccentric aortic regurgitation.
[2025-01-09] MEDS: XANAX 0.5 MG PO (12:08)
--- NOTE | 2025-01-09 13:38 | VATNOTE ---
pt stated picc was placed approx a month ago.
[2025-01-09] MEDS: COUMADIN 1 MG PO (17:37)
[2025-01-09] MEDS: REMOVE LIDOCAINE PATCH REMOVE (19:54)
[2025-01-09] MEDS: AMBIEN 10 MG PO (20:03)
--- NOTE | 2025-01-09 20:51 | PTCARENOTE ---
Pt rec'd at change of shift in bed with eyes closed easily arousable. NIH stroke scale 0. Sinus on telemetry with BBB,1st degree HB and + click heard on assessment. JOSE ALBERTO single lumen picc flushed,+ blood return.Pt requested Ambien at 8. Pt aware need
to do VS and give evening meds at 2200.
[2025-01-10] VITALS (9 sets, daily range): BP systolic 132–169; BP diastolic 85–94; BMI 23.0
--- NOTE | 2025-01-10 02:48 | W.PN.CT ---
Addendum entered and electronically signed by Kranthi Denney MD 01/10/25 09:16:
I saw and examined the patient.
The PA's note was reviewed and I agree with the note.
Comment:
POD#14 s/p AVR, septal myomectomy/vegectomy, chordae rx x 1
INR 2.47 today.� Hold Coumadin tonight, likely 1mg again tomorrow. �ABX per ID.� PT/OT.� D/C planning
Original Note:
Today's Communication / Plan
-
-pod # 14
-no issues overnight. A&O x3, appears in better mood, more awake
-INR 2.47 today (got Coumadin 1 mg on 01/05, 2.5 mg on 01/06, 1 mg on 01/07, 01/08, and 01/09 ).
-weaned off O2 - pox 98% on RA
-Cr improving
-on Ertapenem
-encourage IS, OOB, ambulate
-appreciate everyone's input
-awaiting rehab approval
Assessment / Plan
-
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
and debridement, c/b post op bleeding from CT and re-exploration/venous bleeding and oozing from the sternum on 12/27/[address] Denney, POD #14
Post-AMANDA: Normal biventricular function w/ LVEF 65%, well-seated AVR w/ mean gradient 11mmHg, normal washing jets. MV w/ MILD-to-mod regurgitation w/ improvement in preoperative RHONDA.
EKG 12/27/24 NSR 1st degree AVB
Radiology: CT [place]: Sm L pleural effusion, mod ascities, mod splenomegaly hypodense lesion upper pole of spleen concern for splenic infarct. MRI: 12/23/24 Multiple cortical and subcortical foci concern for septic emboli which can demonstrate
ischemic changes with restricted diffusion as well as hemorrhagic damage to the brain. Linear areas of non flair suppression and diminished signal suggest possible subarachnoid hemorrhage
Echo 12/22/24 EF 60-65, mild LVH, mildly dilated LA, severe thickening of anterior and posterior mitral leaflets,mild-mod MR, mod sized 0.4 x 0/7 oscillating heterogeneous echodensity attahced to noncoronary cusp, mild-mod AR, PG 23.5/MG 13.1, small
pericardial effusion
Assessment:
-Strep Mutans AV endocarditis
-Acute hypoxic respiratory failure
-Strep Mutans bacteremia
-moderate AI
-moderate MR with RHONDA
-metastatic septic emboli to the brain, spleen
-oliguric CORNELIO on probable CKD IIIb
-Renal calculi
-coagulopathy
-transfusion dependent anemia
-thrombocytopenia
-unintentional weight loss
-dental cap dislodgement
-possible left mandibular canine abscess, per panelipse 12/27
-Panelipse from 12/27 showed suspicious lesion on the left mandibular canine concerning for possible abscess, seen by [facility] 12/29 and determined to be unremarkable, no intervention needed, outpt f/u
-hx anxiety/depression
-hx HTN
-hx opioid addiction per , prescribed for management of recurrent renal stones and escalated after his father's approx. 2 yrs ago (on Buprenorphine preop)
-Acute postop blood loss Anemia on probable Anemia of Chronic CKD (transfused 3u PRBC's, 2u FFPs)
-Acute postop thrombocytopenia (transfused 2 {5pks}of plts)
-Acute postop VDRF/hypoxemia
-Acute postop atelectasis
-Acute postop hypovolemia with subsequent hypervolemia
-Acute postop SAH involving frontal lobe, right parietal occipital lobe and left parietal lobe
-Acute postop suspected Hemorrhagic septic emboli
-Acute CORNELIO on suspected CKD
-Acute postop metabolic acidosis
-Acute postop hyponatremia
-Coumadin anticoagulation for mechanical valve. INR goal is 2
Discussed patient care with: Nursing and Care Team
Subjective
-
Date of Service: January 10, 2025
Objective Data
-
PT 25.0 Sec (11.4-14.6) H 01/09/25 05:19
INR 2.25 01/09/25 05:19
APTT 49.9 Sec (23.4-35.0) H 01/03/25 04:42
Vital Signs
Vital Signs
Temp Pulse Resp BP Pulse Ox
97.7 F 67 20 147/92 97
01/09/25 22:05 01/09/25 22:05 01/09/25 22:05 01/09/25 22:05 01/09/25 22:05
CT Intake/Output/Weight
01/09/25 01/09/25 01/10/25
06:59 18:59 06:59
Intake Total 240 / 360 717 / 717
Output Total 200 / 675 1050 / 1050
Balance 40 / -315 717 / -333 -1050 / -333
SaO2: 97
Physical Exam
-
General: Awake and AOx3
Cardiovascular: Regular rate & rhythm, No Murmurs and No Rub
Respiratory: Decreased Breath Sounds
Sternum: Stable
Incision: Clean, Dry and Intact
Extremities: Edema +2
Abdomen: soft, + BMs, nontender, nondistended, + bowel sounds
Data Reviewed
-
Lab Results: Results Reviewed
Medications: Active Meds Reviewed
Chest X-Ray: Report Reviewed and Image Reviewed
ECG: Report Reviewed and Image Reviewed
[2025-01-10] MEDS: APRESOLINE 10 MG PO (04:37)
--- NOTE | 2025-01-10 04:47 | PTCARENOTE ---
Pt one person assist with walker to ambulate to bathroom. Pt had a mod size bm. Wt obtained twice after significant wt loss noted. 4.4 kg loss/9.6 lbs
b/p 163/94 therefore prn dose of po Hydralazine given.
[2025-01-10 04:53] LABS: Hematocrit 24.0 % (39.0-52.0); Hemoglobin 8.0 g/dL (13.0-18.0); Mean Corp Hgb Conc. 33.3 g/dL (33.0-37.0); Mean Corpuscular Volume 86.3 fL (80.0-94.0); Platelet Count 242 10^3/uL (130-400); Red Cell Dist. Width 18.1 % (11.5-14.5)
[2025-01-10 05:05] LABS: INR 2.47; PT 26.8 Sec (11.4-14.6)
[2025-01-10 05:17] LABS: Blood Urea Nitrogen 40 mg/dl (9-20); Calcium 7.9 mg/dl (8.4-10.2); Carbon Dioxide 24 mmol/L (22-30); Chloride 111 mmol/L (98-107); Estimated Creatinine Clearance 61 ml/min; Glucose 99 mg/dl (70-99); Potassium 4.7 mmol/L (3.5-5.1); Sodium 139 mmol/L (135-145); eGFR 56.37
[2025-01-10] MEDS: XANAX 0.5 MG PO ×2 (06:38→17:57)
[2025-01-10] MEDS: TYLENOL 1000 MG PO ×3 (06:38→22:02)
--- NOTE | 2025-01-10 09:02 | W.PN.ID1 ---
Date of Service
Date of Service: January 10, 2025
Today's Communication
Continue current antibiotics.
Assessment / Plan
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
- Enterobacter cloacae also isolated from valve tissue (from enrichment broth only)
Suspected septic emboli to the brain
Subarachnoid hemorrhage
Leukocytosis; resolved
Renal insufficiency
Elevated ESR, CRP
HTN
DM type II
Nephrolithiasis
Recommendations:
Repeat blood cultures without growth.
Patient status post valve replacement with mechanical AVR (12/27/2024)
Aortic valve cx: Enterobacter cloacae (on enrichment broth only) - possibly contaminant.
To err on side of caution, treat both S. mutans and E. cloacae
-> Continue Ertapenem 1g IV q 24h x 6 weeks (through 02/14/25)
Follow weekly CBC with diff, CMP.
Infusion sheet placed in chart. Case management aware.
���������������������������������������������������������
Chief Complaint
-: Other (Strep mutans endocarditis)
Subjective / Review of Systems
Review of Systems: No Fever, No Chills, Cough and No Sputum Production
Vital Signs / Physical Exam
Vital Signs
Vital Signs
Temp Pulse Resp BP Pulse Ox
97.8 F 68 16 155/89 98
01/10/25 07:17 01/10/25 07:18 01/10/25 07:17 01/10/25 07:18 01/10/25 07:17
Physical Exam
Constitutional: Chronically Ill
Cardiovascular: Regular Rate, S1/S2 and Other (Positive click)
Pulmonary: Clear and Non Labored
Gastrointestinal: Soft, Non Tender and Non Distended
Extremities: Edema
Neurological: AO x 3
Psychological: Calm
Lines: PICC
Objective Data
Lab Data
Lab Results
01/10/25 04:30
01/10/25 04:30
ESR 58 mm/hour (0-20) H 12/29/24 03:08
PT 26.8 Sec (11.4-14.6) H 01/10/25 04:30
INR 2.47 01/10/25 04:30
APTT 49.9 Sec (23.4-35.0) H 01/03/25 04:42
Estimated Creat Clear 61 ml/min 01/10/25 04:30
Lactic Acid 0.9 mmol/L (0.7-2.0) 12/28/24 03:11
Total Bilirubin 0.5 mg/dl (0.2-1.3) 12/28/24 17:33
AST 42 U/L (17-59) 12/28/24 17:33
ALT 14 U/L (0-50) 12/28/24 17:33
Alkaline Phosphatase 60 U/L (38-126) 12/28/24 17:33
C-Reactive Protein 48.80 mg/L (0.0-10.00) H 12/29/24 03:08
Most recent labs reviewed.
Micro Results:
12/27/24 17:06 Fungal Culture - Preliminary
Heart Culture in progress.
Positive cultures are reported as soon as detected.
Final report to follow in four to five weeks.
12/27/24 17:14 Fungal Culture - Preliminary
Heart Culture in progress.
Positive cultures are reported as soon as detected.
Final report to follow in four to five weeks.
12/30/24 11:06 Blood Culture - Final
Blood/Venous No Growth - Final Report
12/30/24 10:20 Blood Culture - Final
Blood/Venous No Growth - Final Report
12/27/24 17:06 Tissue Culture - Final
Heart Enterobacter cloacae
Gram Stain - Final
12/31/24 10:54 Respiratory Culture - Final
Sputum Elaine albicans
Gram Stain - Final
12/27/24 17:06 Anaerobic Culture - Final
Heart NO ANAEROBES ISOLATED
12/27/24 17:14 Anaerobic Culture - Final
Heart NO ANAEROBES ISOLATED
12/27/24 17:14 Tissue Culture - Final
Heart No Growth After 72 Hours
Gram Stain - Final
12/27/24 12:38 Blood Culture - Final
Blood/Venous No Growth - Final Report
12/27/24 11:47 Blood Culture - Final
Blood/Venous No Growth - Final Report
12/30/24 10:10 Urine Culture - Final
Urine NO GROWTH
12/27/24 15:00 Urine Culture - Final
Urine NO GROWTH
12/27/24 05:31 MRSA Screen - Final
Nose No Methicillin Resistant Staphylococcus aureus isolated.
Tissue Culture Final 01/03/25-0850
Enterobacter cloacae - Isolated from enrichment broth
only.
1. Enterobacter cloacae
M.I.C. RX
--------- ---
Amoxicillin/Potas. Clavulanate >16/8 R
Ampicillin >16 R
Ampicillin/Sulbactam >16/8 R
Aztreonam <=4 S
Cefazolin >16 R
Cefepime <=2 S
Ceftazidime >16 R
Ceftriaxone >2 R
Ertapenem <=0.5 S
Ciprofloxacin <=0.25 S
Gentamicin <=2 S
Meropenem <=1 S
Piperacillin/Tazobactam <=8 S
Tetracycline <=4 S
Tobramycin <=2 S
Trimethoprim/Sulfamethoxazole <=2/38 S .
12/18/2024
11:00 Blood culture ([facility])
Streptococcus mutans
Ampicillin <= 0.25 S
Cefotaxime <=0.12 S
Ceftriaxone <= 0.12 S
Erythromycin <= 0.12 S
Levofloxacin =1 S
Linezolid <= 2 S
Moxifloxacin =0.25 S
Penicillin G <= 0.06 S
Vancomycin =1 S
Imaging:
12/29/2024 CT head without contrast: 'MULTIFOCAL ACUTE SUBARACHNOID HEMORRHAGE with a new small subarachnoid hemorrhage over the inferolateral margin of the right frontal lobe. Small acute subarachnoid hemorrhages in the sulci medial to the right
frontal lobe, anterior to the left frontal lobe, medial to the right parietal-occipital lobe, and posterior to the left parietal lobe which appear unchanged. Hemorrhagic septic emboli is a diagnostic consideration given the history of endocarditis.'
12/25/2024 MRI brain (performed at [facility]): Multiple cortical and subcortical foci of diminished signal intensity on susceptibility weighted sequences. The sequence suggest the presence of blood products. Concern raised for septic
emboli which can demonstrate ischemic changes resulting in restriction diffusion, as well as hemorrhagic damage to the brain. Multiple small embolic infarcts also in the differential. Contrast enhanced examination failed to demonstrate enhancing
lesions or venous filling defects or prominent venous structures thus leptomeningeal carcinomatosis or venous congestion is not consistent with this study. Linear appearing areas of non-FLAIR suppression and diminished signal on susceptibility
weighted sequences suggest associated possible subarachnoid hemorrhage within the bilateral occipital lobes. Please see full dictation for additional detail.
12/22/2024 ECHO (TTE): LV EF = 60%. Mildly dilated left atrium. Severe thickening of the anterior and posterior leaflets of the mitral valve, but without clear vegetations. Moderate sized (0.4 x 0.7 cm oscillating heterogeneous echodensity
attached to the noncoronary cusp. Aortic valve is thickened and calcified with mild to moderate eccentric aortic regurgitation.
[2025-01-10] MEDS: INVANZ 60 MG IV (09:27)
[2025-01-10] MEDS: PROTONIX 40 MG PO (10:21)
[2025-01-10] MEDS: EDECRIN 50 MG PO ×2 (10:21→16:25)
[2025-01-10] MEDS: COREG 25 MG PO ×2 (10:21→19:56)
[2025-01-10] MEDS: ROXICODONE 5 MG PO (10:21)
[2025-01-10] MEDS: APRESOLINE 25 MG PO ×3 (10:22→22:02)
[2025-01-10] MEDS: NEURONTIN 300 MG PO ×2 (10:22→20:01)
[2025-01-10] MEDS: PROZAC 40 MG PO (10:22)
[2025-01-10] MEDS: PACERONE 200 MG PO ×3 (10:23→22:02)
[2025-01-10] MEDS: MUCINEX 600 MG PO (10:23)
[2025-01-10] MEDS: LIDOCAINE 4% PATCH TOPICAL (10:23)
[2025-01-10] MEDS: NORVASC 10 MG PO (10:23)
[2025-01-10] MEDS: LOW STRENGTH ASPIRIN 81 MG PO (10:23)
[2025-01-10] MEDS: SENOKOT-S PO ×2 (10:24→19:57)
--- NOTE | 2025-01-10 10:53 | W.PN.CD ---
Today's Communication / Plan
-
add hydralazine 25mg tid
Impression / Plan
-
I/P: 49-year-old man with no previous cardiac history who presents with unintentional weight loss since October found to have aortic valve endocarditis complicated by septic emboli to the brain and spleen, s/p AoV replacement and extensive debridement
with Dr. Denney on 12/27/24. Course complicated by subarachnoid hemorrhage.
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
Strep mutans aortic valve endocarditis
- Complicated by CVA with hemorrhagic conversion, CORNELIO, & splenic infarct
- Now s/p complex open heart surgery (12/27/2024) with mechanical AVR, debridement LVOT/MV structures
- Continue antibiotic therapy per ID
Mechanical aortic valve replacement: On-X
-Warfarin and ASA 81mg
-Post AMANDA MG 11mg
Hypertension
-continue Amlodipine 10 mg
-cont coreg 25mg bid
-add hydralazine 25mg tid
-Avoiding JUAN/ARB with recovering CORNELIO
LE edema
- B/L LE edema without orthopnea & without SOB
- On ethacrynic acid per nephrology- continue and monitor
Post op new LBBB/IVCD, follow telemetry:
-stable in SR
CORNELIO, nephrology following, possible infectious immune complex GN, creatinine continues to improve
CVA, MRI pending, LDL above goal at 72
Splenic infarct, in setting of endocarditis
Thrombocytopenia/anemia
History of opioid abuse, off Subutex, psychiatry has signed off
Data:
OR, Dr. Denney, 12/27/2024:
Functionally bicuspid AV (with partial fusion of LCC and RCC), NCC w/ significant destruction w/ embolic vegetations on aortic and ventricular surfaces; one vegetation with very narrow stalk.
S/P mechanical AVR (25 mm On-X) s/p explant and redo AVR (23mm On-x), LVOT vegetation debridement, MV chordae vegetation resection and debridement.
Complicated by post op bleeding and re-exploration/venous bleeding and oozing from the sternum.
HEAD CT 12/31/24:
COMPARISON: 12/30/2024
The ventricles are normal in size, configuration, and position.
The previously seen small areas of high attenuation suggesting subarachnoid hemorrhage or hemorrhagic septic emboli are either stable or decreased.
There are no new similar findings. There is no intra- or extra-axial mass.
There is no midline shift nor mass effect. Visualized paranasal sinuses show minimal mucosal thickening of the right maxillary sinus.
IMPRESSION:
Improved or stable findings suggesting small foci of intracranial hemorrhage. No new pathology identified.
Physical Exam
Vital Signs/Labs
Vital Signs
Temp Pulse Resp BP Pulse Ox
97.8 F 70 16 155/89 98
01/10/25 07:17 01/10/25 10:21 01/10/25 07:17 01/10/25 10:21 01/10/25 10:33
01/09/25 01/10/25 01/11/25
06:59 06:59 06:59
Actual Weight 77.1 kg 72.7 kg
01/10/25 04:30
01/10/25 04:30
PT 26.8 Sec (11.4-14.6) H 01/10/25 04:30
INR 2.47 01/10/25 04:30
APTT 49.9 Sec (23.4-35.0) H 01/03/25 04:42
Magnesium 1.8 mg/dl (1.6-2.3) 01/05/25 03:55
Triglycerides Cancelled 01/01/25 12:16
LDL Cholesterol, Calc Cancelled 01/01/25 12:16
VLDL Cholesterol, Calc Cancelled 01/01/25 12:16
HDL Cholesterol Cancelled 01/01/25 12:16
Physical Exam
Constitutional: No acute distress and Comfortable
EENT: Moist mucous membranes
Cardiovascular: Rhythm & rate is regular, Pedal edema present and Other (+mechanical valve click)
Neuro/Psych: AO x 3
Data Reviewed
-
Date of Service: January 10, 2025
EKG: Other (Tele: SR 60s)
--- NOTE | 2025-01-10 11:36 | PTCARENOTE ---
Pt with stage 2 pressure sore on right sacral crease, pink wound bed. Silicone foam dressing applied. Yet again reinforced with pt the need for him to change positions at least every 2 hours. Pt reluctant to do this and will not stay on his side
when he is turned. Air mattress on pt's bed, foam seat cushion on pt's chair. Pt is eating a high protein diet. Pt is also very weak, deconditioned and depressed. Will continue to keep changing his position frequently and encourage him to be more
independently active.
[2025-01-10] MEDS: KCL 20 MEQ PO (16:25)
--- NOTE | 2025-01-10 18:21 | PTCARENOTE ---
Pt with better motivation and strength today, OOB X 2 walking in halls to waiting area and back. Pt really encouraged to move from side to side to prevent worsening pressure injuries, he states understanding but needs reminding and often declines.
Pt's weight is dropping slightly, still with 3+ pedal edema. Telemetry shows sinus rhythm.
[2025-01-10] MEDS: NEURONTIN PO ×2 (19:56→20:00)
[2025-01-10] MEDS: AMBIEN 10 MG PO (19:56)
[2025-01-10] MEDS: REMOVE LIDOCAINE PATCH REMOVE (19:56)
[2025-01-10] MEDS: MUCINEX PO ×2 (19:56→19:59)
--- NOTE | 2025-01-10 20:37 | PTCARENOTE ---
Pt rec'd at change of shift awake,alert ambulated to bathroom for large soft bm. Lungs clear ,decreased in bases. Sinus with first degree block and BBB on telemetry.
Pt encouraged to change position Q2h to prevent skin breakdown. Foam drsg intact to sacrum skin tear. Refused PM dose of Mucinex. Pt states he has no congestion and doesn't need it. Pt also refusing daily Lidoderm patches.
[2025-01-11] VITALS (9 sets, daily range): BP systolic 125–171; BP diastolic 77–96; BMI 24.2
[2025-01-11] MEDS: ROXICODONE 5 MG PO ×2 (01:15→08:39)
[2025-01-11 04:24] LABS: Hematocrit 23.1 % (39.0-52.0); Hemoglobin 7.8 g/dL (13.0-18.0); Mean Corp Hgb Conc. 33.8 g/dL (33.0-37.0); Mean Corpuscular Volume 86.2 fL (80.0-94.0); Platelet Count 235 10^3/uL (130-400); Red Cell Dist. Width 18.5 % (11.5-14.5)
[2025-01-11 04:37] LABS: INR 2.16; PT 24.2 Sec (11.4-14.6)
[2025-01-11 04:49] LABS: Blood Urea Nitrogen 36 mg/dl (9-20); Calcium 7.5 mg/dl (8.4-10.2); Carbon Dioxide 22 mmol/L (22-30); Chloride 113 mmol/L (98-107); Estimated Creatinine Clearance 61 ml/min; Glucose 105 mg/dl (70-99); Potassium 4.7 mmol/L (3.5-5.1); Sodium 139 mmol/L (135-145); eGFR 56.37
[2025-01-11] MEDS: TYLENOL 1000 MG PO ×3 (06:38→22:22)
--- NOTE | 2025-01-11 06:38 | W.PN.CT ---
Addendum entered and electronically signed by Kranthi Denney MD 01/11/25 09:55:
I saw and examined the patient.
The PA's note was reviewed and I agree with the note.
Comment:
INR 2.16 - Coumadin 1mg tonight
Continue ABX
D/C planning
Original Note:
Today's Communication / Plan
-
-pod # 15
-no issues overnight. A&O x3, appears in better mood, more awake. He plans to walk in a hallway and take a shower later today
-INR 2.16 today (got Coumadin 1 mg on 01/05, 2.5 mg on 01/06, 1 mg on 01/07, 01/08, and 01/09, 0 on 01/10 ).
-weaned off O2 - pox 95% on RA
-on Ertapenem 1g IV q 24h x 6 weeks (through 02/14/25)
-encourage IS, OOB, ambulate
-appreciate everyone's input
-awaiting rehab approval
Assessment / Plan
-
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
and debridement, c/b post op bleeding from CT and re-exploration/venous bleeding and oozing from the sternum on 12/27/[address] Denney, POD #15
Post-AMANDA: Normal biventricular function w/ LVEF 65%, well-seated AVR w/ mean gradient 11mmHg, normal washing jets. MV w/ MILD-to-mod regurgitation w/ improvement in preoperative RHONDA.
EKG 12/27/24 NSR 1st degree AVB
Radiology: CT [place]: Sm L pleural effusion, mod ascities, mod splenomegaly hypodense lesion upper pole of spleen concern for splenic infarct. MRI: 12/23/24 Multiple cortical and subcortical foci concern for septic emboli which can demonstrate
ischemic changes with restricted diffusion as well as hemorrhagic damage to the brain. Linear areas of non flair suppression and diminished signal suggest possible subarachnoid hemorrhage
Echo 12/22/24 EF 60-65, mild LVH, mildly dilated LA, severe thickening of anterior and posterior mitral leaflets,mild-mod MR, mod sized 0.4 x 0/7 oscillating heterogeneous echodensity attahced to noncoronary cusp, mild-mod AR, PG 23.5/MG 13.1, small
pericardial effusion
Assessment:
-Strep Mutans AV endocarditis
-Acute hypoxic respiratory failure
-Strep Mutans bacteremia
-moderate AI
-moderate MR with RHONDA
-metastatic septic emboli to the brain, spleen
-oliguric CORNELIO on probable CKD IIIb
-Renal calculi
-coagulopathy
-transfusion dependent anemia
-thrombocytopenia
-unintentional weight loss
-dental cap dislodgement
-possible left mandibular canine abscess, per panelipse 12/27
-Panelipse from 12/27 showed suspicious lesion on the left mandibular canine concerning for possible abscess, seen by OMF 12/29 and determined to be unremarkable, no intervention needed, outpt f/u
-hx anxiety/depression
-hx HTN
-hx opioid addiction per , prescribed for management of recurrent renal stones and escalated after his father's approx. 2 yrs ago (on Buprenorphine preop)
-Acute postop blood loss Anemia on probable Anemia of Chronic CKD (transfused 3u PRBC's, 2u FFPs)
-Acute postop thrombocytopenia (transfused 2 {5pks}of plts)
-Acute postop VDRF/hypoxemia
-Acute postop atelectasis
-Acute postop hypovolemia with subsequent hypervolemia
-Acute postop SAH involving frontal lobe, right parietal occipital lobe and left parietal lobe
-Acute postop suspected Hemorrhagic septic emboli
-Acute CORNELIO on suspected CKD
-Acute postop metabolic acidosis
-Acute postop hyponatremia
-Coumadin anticoagulation for mechanical valve. INR goal is 2
Discussed patient care with: Nursing and Care Team
Subjective
-
Date of Service: January 11, 2025
Objective Data
-
PT 26.8 Sec (11.4-14.6) H 01/10/25 04:30
INR 2.47 01/10/25 04:30
APTT 49.9 Sec (23.4-35.0) H 01/03/25 04:42
Vital Signs
Vital Signs
Temp Pulse Resp BP Pulse Ox
97.7 F 70 24 151/92 95
01/10/25 21:58 01/10/25 21:57 01/10/25 21:58 01/10/25 21:57 01/10/25 21:58
CT Intake/Output/Weight
01/10/25 01/10/25 01/11/25
06:59 18:59 06:59
Intake Total 480 / 480
Output Total 1050 / 1050 375 / 375
Balance -1050 / -333 105 / 105
SaO2: 95
Physical Exam
-
General: Awake and AOx3
Cardiovascular: Regular rate & rhythm, No Murmurs and No Rub
Respiratory: Decreased Breath Sounds
Sternum: Stable
Incision: Clean, Dry and Intact
Extremities: Edema +2 b/l
Abdomen: soft, + BMs, nontender, nondistended, + bowel sounds
Data Reviewed
-
Lab Results: Results Reviewed
Medications: Active Meds Reviewed
Chest X-Ray: Report Reviewed and Image Reviewed
ECG: Report Reviewed and Image Reviewed
--- NOTE | 2025-01-11 08:20 | W.PN.ID1 ---
Date of Service
Date of Service: January 11, 2025
Today's Communication
Continue antibiotics.
Assessment / Plan
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
- Enterobacter cloacae also isolated from valve tissue (from enrichment broth only)
Suspected septic emboli to the brain
Subarachnoid hemorrhage
Leukocytosis; resolved
Renal insufficiency
Elevated ESR, CRP
HTN
DM type II
Nephrolithiasis
Recommendations:
Repeat blood cultures without growth.
Patient status post valve replacement with mechanical AVR (12/27/2024)
Aortic valve cx: Enterobacter cloacae (on enrichment broth only) - possibly contaminant.
To err on side of caution, treat both S. mutans and E. cloacae
-> Continue Ertapenem 1g IV q 24h x 6 weeks (through 02/14/25)
Follow weekly CBC with diff, CMP.
Infusion sheet placed in chart. Case management aware.
Patient reports some 'mushy' stool, which may be secondary to antibiotics. Can try Imodium if continues to be a problem.
���������������������������������������������������������
Chief Complaint
-: Other (Strep. mutans endocarditis)
Subjective / Review of Systems
Patient seen and examined. Reports ongoing generalized pain.
Review of Systems: No Fever and No Chills
Vital Signs / Physical Exam
Vital Signs
Vital Signs
Temp Pulse Resp BP Pulse Ox
97.3 F 70 20 151/92 99
01/11/25 07:09 01/10/25 21:57 01/11/25 07:09 01/10/25 21:57 01/11/25 07:09
Physical Exam
Constitutional: No Acute Distress, Comfortable, Chronically Ill and Non-toxic
Eyes: Sclera Anicteric
Cardiovascular: Regular Rate, S1/S2 and Other (Positive click)
Pulmonary: Clear and Non Labored
Gastrointestinal: Soft, Non Tender and Non Distended
Extremities: Edema
Wound: Other (Sternal incisional wound clean, dry and intact.)
Neurological: AO x 3
Psychological: Calm
Lines: PICC
Objective Data
Lab Data
Lab Results
01/11/25 04:04
01/11/25 04:04
ESR 58 mm/hour (0-20) H 12/29/24 03:08
PT 24.2 Sec (11.4-14.6) H 01/11/25 04:04
INR 2.16 01/11/25 04:04
APTT 49.9 Sec (23.4-35.0) H 01/03/25 04:42
Estimated Creat Clear 61 ml/min 01/11/25 04:04
Lactic Acid 0.9 mmol/L (0.7-2.0) 12/28/24 03:11
Total Bilirubin 0.5 mg/dl (0.2-1.3) 12/28/24 17:33
AST 42 U/L (17-59) 12/28/24 17:33
ALT 14 U/L (0-50) 12/28/24 17:33
Alkaline Phosphatase 60 U/L (38-126) 12/28/24 17:33
C-Reactive Protein 48.80 mg/L (0.0-10.00) H 12/29/24 03:08
Most recent labs reviewed.
Micro Results:
12/27/24 17:06 Fungal Culture - Preliminary
Heart Culture in progress.
Positive cultures are reported as soon as detected.
Final report to follow in four to five weeks.
12/27/24 17:14 Fungal Culture - Preliminary
Heart Culture in progress.
Positive cultures are reported as soon as detected.
Final report to follow in four to five weeks.
12/30/24 11:06 Blood Culture - Final
Blood/Venous No Growth - Final Report
12/30/24 10:20 Blood Culture - Final
Blood/Venous No Growth - Final Report
12/27/24 17:06 Tissue Culture - Final
Heart Enterobacter cloacae
Gram Stain - Final
12/31/24 10:54 Respiratory Culture - Final
Sputum Elaine albicans
Gram Stain - Final
12/27/24 17:06 Anaerobic Culture - Final
Heart NO ANAEROBES ISOLATED
12/27/24 17:14 Anaerobic Culture - Final
Heart NO ANAEROBES ISOLATED
12/27/24 17:14 Tissue Culture - Final
Heart No Growth After 72 Hours
Gram Stain - Final
12/27/24 12:38 Blood Culture - Final
Blood/Venous No Growth - Final Report
12/27/24 11:47 Blood Culture - Final
Blood/Venous No Growth - Final Report
12/30/24 10:10 Urine Culture - Final
Urine NO GROWTH
12/27/24 15:00 Urine Culture - Final
Urine NO GROWTH
12/27/24 05:31 MRSA Screen - Final
Nose No Methicillin Resistant Staphylococcus aureus isolated.
Tissue Culture Final 01/03/25-0850
Enterobacter cloacae - Isolated from enrichment broth
only.
1. Enterobacter cloacae
M.I.C. RX
--------- ---
Amoxicillin/Potas. Clavulanate >16/8 R
Ampicillin >16 R
Ampicillin/Sulbactam >16/8 R
Aztreonam <=4 S
Cefazolin >16 R
Cefepime <=2 S
Ceftazidime >16 R
Ceftriaxone >2 R
Ertapenem <=0.5 S
Ciprofloxacin <=0.25 S
Gentamicin <=2 S
Meropenem <=1 S
Piperacillin/Tazobactam <=8 S
Tetracycline <=4 S
Tobramycin <=2 S
Trimethoprim/Sulfamethoxazole <=2/38 S .
12/18/2024
11:00 Blood culture ([facility])
Streptococcus mutans
Ampicillin <= 0.25 S
Cefotaxime <=0.12 S
Ceftriaxone <= 0.12 S
Erythromycin <= 0.12 S
Levofloxacin =1 S
Linezolid <= 2 S
Moxifloxacin =0.25 S
Penicillin G <= 0.06 S
Vancomycin =1 S
Imaging:
12/29/2024 CT head without contrast: 'MULTIFOCAL ACUTE SUBARACHNOID HEMORRHAGE with a new small subarachnoid hemorrhage over the inferolateral margin of the right frontal lobe. Small acute subarachnoid hemorrhages in the sulci medial to the right
frontal lobe, anterior to the left frontal lobe, medial to the right parietal-occipital lobe, and posterior to the left parietal lobe which appear unchanged. Hemorrhagic septic emboli is a diagnostic consideration given the history of endocarditis.'
12/25/2024 MRI brain (performed at [facility]): Multiple cortical and subcortical foci of diminished signal intensity on susceptibility weighted sequences. The sequence suggest the presence of blood products. Concern raised for septic
emboli which can demonstrate ischemic changes resulting in restriction diffusion, as well as hemorrhagic damage to the brain. Multiple small embolic infarcts also in the differential. Contrast enhanced examination failed to demonstrate enhancing
lesions or venous filling defects or prominent venous structures thus leptomeningeal carcinomatosis or venous congestion is not consistent with this study. Linear appearing areas of non-FLAIR suppression and diminished signal on susceptibility
weighted sequences suggest associated possible subarachnoid hemorrhage within the bilateral occipital lobes. Please see full dictation for additional detail.
12/22/2024 ECHO ([facility]): LV EF = 60%. Mildly dilated left atrium. Severe thickening of the anterior and posterior leaflets of the mitral valve, but without clear vegetations. Moderate sized (0.4 x 0.7 cm oscillating heterogeneous echodensity
attached to the noncoronary cusp. Aortic valve is thickened and calcified with mild to moderate eccentric aortic regurgitation.
[2025-01-11] MEDS: EDECRIN 50 MG PO ×2 (08:36→15:32)
[2025-01-11] MEDS: APRESOLINE 25 MG PO ×2 (08:37→10:26)
[2025-01-11] MEDS: COREG 25 MG PO ×2 (08:37→20:38)
[2025-01-11] MEDS: PACERONE 200 MG PO ×3 (08:38→22:22)
[2025-01-11] MEDS: NEURONTIN 300 MG PO ×2 (08:38→20:37)
[2025-01-11] MEDS: LOW STRENGTH ASPIRIN 81 MG PO (08:38)
[2025-01-11] MEDS: PROTONIX 40 MG PO (08:38)
[2025-01-11] MEDS: PROZAC 40 MG PO (08:38)
[2025-01-11] MEDS: LIDOCAINE 4% PATCH TOPICAL (08:39)
[2025-01-11] MEDS: MUCINEX PO ×2 (08:39→20:35)
[2025-01-11] MEDS: SENOKOT-S PO ×2 (08:40→20:35)
--- NOTE | 2025-01-11 09:19 | W.PN.CD ---
Today's Communication / Plan
-
increase hydralazine to 50mg tid
Impression / Plan
-
I/P: 49-year-old man with no previous cardiac history who presents with unintentional weight loss since October found to have aortic valve endocarditis complicated by septic emboli to the brain and spleen, s/p AoV replacement and extensive debridement
with Dr. Denney on 12/27/24. Course complicated by subarachnoid hemorrhage.
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
Strep mutans aortic valve endocarditis
- Complicated by CVA with hemorrhagic conversion, CORNELIO, & splenic infarct
- Now s/p complex open heart surgery (12/27/2024) with mechanical AVR, debridement LVOT/MV structures
- Continue antibiotic therapy per ID
Mechanical aortic valve replacement: On-X
-Warfarin and ASA 81mg
-Post AMANDA MG 11mg
Hypertension
-continue Amlodipine 10 mg
-cont coreg 25mg bid
-increase hydralazine to 50mg tid
-Avoiding JUAN/ARB with recovering CORNELIO
LE edema
- B/L LE edema without orthopnea & without SOB
- On ethacrynic acid per nephrology- continue and monitor
Post op new LBBB/IVCD, follow telemetry:
-stable in SR
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
CVA, MRI pending, LDL above goal at 72
Splenic infarct, in setting of endocarditis
Thrombocytopenia/anemia
History of opioid abuse, off Subutex, psychiatry has signed off
Data:
OR, Dr. Denney, 12/27/2024:
Functionally bicuspid AV (with partial fusion of LCC and RCC), NCC w/ significant destruction w/ embolic vegetations on aortic and ventricular surfaces; one vegetation with very narrow stalk.
S/P mechanical AVR (25 mm On-X) s/p explant and redo AVR (23mm On-x), LVOT vegetation debridement, MV chordae vegetation resection and debridement.
Complicated by post op bleeding and re-exploration/venous bleeding and oozing from the sternum.
HEAD CT 12/31/24:
COMPARISON: 12/30/2024
The ventricles are normal in size, configuration, and position.
The previously seen small areas of high attenuation suggesting subarachnoid hemorrhage or hemorrhagic septic emboli are either stable or decreased.
There are no new similar findings. There is no intra- or extra-axial mass.
There is no midline shift nor mass effect. Visualized paranasal sinuses show minimal mucosal thickening of the right maxillary sinus.
IMPRESSION:
Improved or stable findings suggesting small foci of intracranial hemorrhage. No new pathology identified.
Physical Exam
Vital Signs/Labs
Vital Signs
Temp Pulse Resp BP Pulse Ox
97.3 F 70 20 171/96 99
01/11/25 07:09 01/11/25 08:00 01/11/25 07:09 01/11/25 07:50 01/11/25 08:32
01/10/25 01/11/25 01/12/25
06:59 06:59 06:59
Actual Weight 72.7 kg 76.6 kg
01/11/25 04:04
01/11/25 04:04
PT 24.2 Sec (11.4-14.6) H 01/11/25 04:04
INR 2.16 01/11/25 04:04
APTT 49.9 Sec (23.4-35.0) H 01/03/25 04:42
Magnesium 1.8 mg/dl (1.6-2.3) 01/05/25 03:55
Triglycerides Cancelled 01/01/25 12:16
LDL Cholesterol, Calc Cancelled 01/01/25 12:16
VLDL Cholesterol, Calc Cancelled 01/01/25 12:16
HDL Cholesterol Cancelled 01/01/25 12:16
Physical Exam
Constitutional: No acute distress and Comfortable
EENT: Moist mucous membranes
Cardiovascular: Rhythm & rate is regular, JVD pressure is normal, Pedal edema present and Other (+mechanical valve click)
Respiratory: Respiratory effort normal and Lungs clear to auscul.
Neuro/Psych: AO x 3
Data Reviewed
-
Date of Service: January 11, 2025
EKG: Other (Tele: SR 60s)
Labs: Labs Reviewed by me
[2025-01-11] MEDS: NORVASC 10 MG PO (10:26)
[2025-01-11] MEDS: KCL 20 MEQ PO (10:26)
[2025-01-11] MEDS: INVANZ 60 MG IV (10:26)
[2025-01-11] MEDS: APRESOLINE 50 MG PO ×2 (15:32→22:25)
[2025-01-11] MEDS: ROXICODONE 10 MG PO ×2 (15:33→20:42)
[2025-01-11] MEDS: IMODIUM 2 MG PO (16:31)
[2025-01-11] MEDS: COUMADIN 1 MG PO (18:00)
--- NOTE | 2025-01-11 18:24 | PTCARENOTE ---
Pt looking much better, willing and able to walk to the waiting room with a steady gait, tolerated a shower. Pt with a much more positive attitude toward his rehab. Pt learning about coumadin and dietary considerations. Pt passed 3 soft/loose BM's,
aware, pt given one dose of imodium. Telemetry shows sinus rhythm with first degree AV block, BBB. Hydralazine dose doubled today, SBP @130. Will continue to encourage pt in all areas of his recovery.
[2025-01-11] MEDS: REMOVE LIDOCAINE PATCH REMOVE (20:35)
[2025-01-11] MEDS: AMBIEN 10 MG PO (22:22)
--- NOTE | 2025-01-11 22:30 | PTCARENOTE ---
Received pt at change of shift resting in bed. Neuro check performed and NIH score of 0. SR on tele with 1st degree AVB, BBB, and prolonged QT. HR in the 70's. Surgical sites C.D.I. pt reports having had coughed and pain worsened to 10/10 in sternal
incision. 10mg PRN Gabriella administered as ordered--see SEP. pt reports having pain relief and is now 5/10. IS performed with result of 1,000. Sternal precautions and RUE restrictions in place. Pt educated and encouraged to turn/redistribute weight
while in bed, verbalizes understanding. Call quesada within reach.
[2025-01-12] VITALS (10 sets, daily range): BP systolic 110–163; BP diastolic 68–94; BMI 24.6
--- NOTE | 2025-01-12 00:35 | W.PN.CT ---
Today's Communication / Plan
-
No issues overnight�
INR goal greater than 2, maintain coumadin at 1mg�
Continue Ertapenem 1g IV q 24h x 6 weeks (through 02/14/25)�
Hydralazine increased to 50 mg TID�
Currents Amio, Norvasc, ASA, Coreg, Prozac, gabapentin, oxycodone, warfarin, ambien�
Encourage IS, OOB, ambulate�
Assessment / Plan
-
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
and debridement, c/b post op bleeding from CT and re-exploration/venous bleeding and oozing from the sternum on 12/27/[address] Denney, POD #16
Post-AMANDA: Normal biventricular function w/ LVEF 65%, well-seated AVR w/ mean gradient 11mmHg, normal washing jets. MV w/ MILD-to-mod regurgitation w/ improvement in preoperative RHONDA.
EKG 12/27/24 NSR 1st degree AVB
Radiology: CT [place]: Sm L pleural effusion, mod ascities, mod splenomegaly hypodense lesion upper pole of spleen concern for splenic infarct. MRI: 12/23/24 Multiple cortical and subcortical foci concern for septic emboli which can demonstrate
ischemic changes with restricted diffusion as well as hemorrhagic damage to the brain. Linear areas of non flair suppression and diminished signal suggest possible subarachnoid hemorrhage
Echo 12/22/24 EF 60-65, mild LVH, mildly dilated LA, severe thickening of anterior and posterior mitral leaflets,mild-mod MR, mod sized 0.4 x 0/7 oscillating heterogeneous echodensity attahced to noncoronary cusp, mild-mod AR, PG 23.5/MG 13.1, small
pericardial effusion
Assessment:
-Strep Mutans AV endocarditis
-Acute hypoxic respiratory failure
-Strep Mutans bacteremia
-moderate AI
-moderate MR with RHONDA
-metastatic septic emboli to the brain, spleen
-oliguric CORNELIO on probable CKD IIIb
-Renal calculi
-coagulopathy
-transfusion dependent anemia
-thrombocytopenia
-unintentional weight loss
-dental cap dislodgement
-possible left mandibular canine abscess, per panelipse 12/27
-Panelipse from 12/27 showed suspicious lesion on the left mandibular canine concerning for possible abscess, seen by OMF 12/29 and determined to be unremarkable, no intervention needed, outpt f/u
-hx anxiety/depression
-hx HTN
-hx opioid addiction per , prescribed for management of recurrent renal stones and escalated after his father's approx. 2 yrs ago (on Buprenorphine preop)
-Acute postop blood loss Anemia on probable Anemia of Chronic CKD (transfused 3u PRBC's, 2u FFPs)
-Acute postop thrombocytopenia (transfused 2 {5pks}of plts)
-Acute postop VDRF/hypoxemia
-Acute postop atelectasis
-Acute postop hypovolemia with subsequent hypervolemia
-Acute postop SAH involving frontal lobe, right parietal occipital lobe and left parietal lobe
-Acute postop suspected Hemorrhagic septic emboli
-Acute CORNELIO on suspected CKD
-Acute postop metabolic acidosis
-Acute postop hyponatremia
-Coumadin anticoagulation for mechanical valve. INR goal is 2
Subjective
-
Date of Service: January 12, 2025
Objective Data
-
PT 24.2 Sec (11.4-14.6) H 01/11/25 04:04
INR 2.16 01/11/25 04:04
APTT 49.9 Sec (23.4-35.0) H 01/03/25 04:42
Vital Signs
Vital Signs
Temp Pulse Resp BP Pulse Ox
97.6 F 70 18 146/89 97
01/11/25 22:24 01/11/25 22:25 01/11/25 22:24 01/11/25 22:25 01/11/25 22:24
CT Intake/Output/Weight
01/11/25 01/11/25 01/12/25
06:59 18:59 06:59
Intake Total 240 / 720 540 / 540
Balance 240 / 345 540 / 540
SaO2: 97
Physical Exam
-
General: Awake
Cardiovascular: Regular rate & rhythm
Respiratory: Clear and Equal
Sternum: Stable
Incision: Clean, Dry and Intact
Extremities: No Edema
[2025-01-12 04:36] LABS: Hematocrit 22.6 % (39.0-52.0); Hemoglobin 7.4 g/dL (13.0-18.0); Mean Corp Hgb Conc. 32.7 g/dL (33.0-37.0); Mean Corpuscular Volume 88.6 fL (80.0-94.0); Platelet Count 228 10^3/uL (130-400); Red Cell Dist. Width 18.4 % (11.5-14.5)
[2025-01-12 04:48] LABS: INR 1.92; PT 22.1 Sec (11.4-14.6)
[2025-01-12 05:04] LABS: Blood Urea Nitrogen 33 mg/dl (9-20); Calcium 7.9 mg/dl (8.4-10.2); Carbon Dioxide 22 mmol/L (22-30); Chloride 113 mmol/L (98-107); Estimated Creatinine Clearance 57 ml/min; Glucose 101 mg/dl (70-99); Potassium 4.7 mmol/L (3.5-5.1); Sodium 139 mmol/L (135-145); eGFR 52.17
[2025-01-12] MEDS: TYLENOL 1000 MG PO ×3 (05:42→22:15)
[2025-01-12] MEDS: EDECRIN 50 MG PO ×2 (07:32→17:16)
[2025-01-12] MEDS: PROTONIX 40 MG PO (07:33)
[2025-01-12] MEDS: PROZAC 40 MG PO (07:33)
[2025-01-12] MEDS: NORVASC 10 MG PO (07:33)
[2025-01-12] MEDS: NEURONTIN 300 MG PO ×2 (07:33→20:23)
[2025-01-12] MEDS: ROXICODONE 10 MG PO (07:33)
[2025-01-12] MEDS: COREG 25 MG PO ×2 (07:33→20:23)
[2025-01-12] MEDS: PACERONE 200 MG PO ×3 (07:34→22:15)
[2025-01-12] MEDS: LOW STRENGTH ASPIRIN 81 MG PO (07:34)
[2025-01-12] MEDS: KCL 20 MEQ PO (07:34)
[2025-01-12] MEDS: APRESOLINE 50 MG PO (07:34)
[2025-01-12] MEDS: IMODIUM 2 MG PO (07:39)
[2025-01-12] MEDS: MUCINEX PO (07:51)
[2025-01-12] MEDS: SENOKOT-S PO ×2 (07:51→20:22)
[2025-01-12] MEDS: LIDOCAINE 4% PATCH TOPICAL (07:51)
--- NOTE | 2025-01-12 08:20 | PTCARENOTE ---
Assumed care. Patient AO x 3, NIH 0. Sternal burning pain, medicated with oxycodone. Room air, breath sounds decreased at bases otherwise clear. Generalized anasarca. Fluid restrictions reviewed, verbalized understanding. SR, 1st degree AVB, BBB,
prolonged QT HR in 60's. Encouraged out of bed today to walk, cooperative with plan of care. Sternal incision and old chest tube sites scabbed and healing, skin pale, call quesada in reach
--- NOTE | 2025-01-12 09:05 | W.PN.CD ---
Today's Communication / Plan
-
increase hydralazine to 100mg tid
Impression / Plan
-
I/P: 49-year-old man with no previous cardiac history who presents with unintentional weight loss since October found to have aortic valve endocarditis complicated by septic emboli to the brain and spleen, s/p AoV replacement and extensive debridement
with Dr. Denney on 12/27/24. Course complicated by subarachnoid hemorrhage.
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
Strep mutans aortic valve endocarditis
- Complicated by CVA with hemorrhagic conversion, CORNELIO, & splenic infarct
- Now s/p complex open heart surgery (12/27/2024) with mechanical AVR, debridement LVOT/MV structures
- Continue antibiotic therapy per ID
Mechanical aortic valve replacement: On-X
-Warfarin and ASA 81mg
-Post AMANDA MG 11mg
Hypertension
-continue Amlodipine 10 mg
-cont coreg 25mg bid
-increase hydralazine to 100mg tid
-Avoiding JUAN/ARB with recovering CORNELIO
LE edema
- B/L LE edema without orthopnea & without SOB
- On ethacrynic acid per nephrology- continue and monitor
Post op new LBBB/IVCD, follow telemetry:
-stable in SR
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
CVA, MRI pending, LDL above goal at 72
Splenic infarct, in setting of endocarditis
Thrombocytopenia/anemia
History of opioid abuse, off Subutex, psychiatry has signed off
Data:
OR, Dr. Denney, 12/27/2024:
Functionally bicuspid AV (with partial fusion of LCC and RCC), NCC w/ significant destruction w/ embolic vegetations on aortic and ventricular surfaces; one vegetation with very narrow stalk.
S/P mechanical AVR (25 mm On-X) s/p explant and redo AVR (23mm On-x), LVOT vegetation debridement, MV chordae vegetation resection and debridement.
Complicated by post op bleeding and re-exploration/venous bleeding and oozing from the sternum.
HEAD CT 12/31/24:
COMPARISON: 12/30/2024
The ventricles are normal in size, configuration, and position.
The previously seen small areas of high attenuation suggesting subarachnoid hemorrhage or hemorrhagic septic emboli are either stable or decreased.
There are no new similar findings. There is no intra- or extra-axial mass.
There is no midline shift nor mass effect. Visualized paranasal sinuses show minimal mucosal thickening of the right maxillary sinus.
IMPRESSION:
Improved or stable findings suggesting small foci of intracranial hemorrhage. No new pathology identified.
Physical Exam
Vital Signs/Labs
Vital Signs
Temp Pulse Resp BP Pulse Ox
97.5 F 69 18 150/93 98
01/12/25 06:53 01/12/25 07:32 01/12/25 06:53 01/12/25 07:32 01/12/25 06:53
01/11/25 01/12/25 01/13/25
06:59 06:59 06:59
Actual Weight 76.6 kg 77.7 kg
01/12/25 04:05
01/12/25 04:05
PT 22.1 Sec (11.4-14.6) H 01/12/25 04:05
INR 1.92 01/12/25 04:05
APTT 49.9 Sec (23.4-35.0) H 01/03/25 04:42
Magnesium 1.8 mg/dl (1.6-2.3) 01/05/25 03:55
Triglycerides Cancelled 01/01/25 12:16
LDL Cholesterol, Calc Cancelled 01/01/25 12:16
VLDL Cholesterol, Calc Cancelled 01/01/25 12:16
HDL Cholesterol Cancelled 01/01/25 12:16
Physical Exam
Constitutional: No acute distress and Comfortable
EENT: Moist mucous membranes
Cardiovascular: Rhythm & rate is regular, JVD pressure is normal, Pedal edema present and Other (+mechanical valve click)
Respiratory: Respiratory effort normal
Neuro/Psych: AO x 3
Data Reviewed
-
Date of Service: January 12, 2025
EKG: Other (Tele: SR 60s)
Labs: Labs Reviewed by me
[2025-01-12] MEDS: INVANZ 60 MG IV (10:47)
--- NOTE | 2025-01-12 13:18 | W.PN.ID1 ---
Date of Service
Date of Service: January 12, 2025
Today's Communication
Continue current antibiotics.
Assessment / Plan
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
- Enterobacter cloacae also isolated from valve tissue (from enrichment broth only)
Suspected septic emboli to the brain
Subarachnoid hemorrhage
Leukocytosis; resolved
Renal insufficiency
Elevated ESR, CRP
HTN
DM type II
Nephrolithiasis
Recommendations:
Repeat blood cultures without growth.
Patient status post valve replacement with mechanical AVR (12/27/2024)
Aortic valve cx: Enterobacter cloacae (on enrichment broth only) - possibly contaminant.
- To error on side of caution, will treat both S. mutans and E. cloacae
-> Continue Ertapenem 1g IV q 24h x 6 weeks (through 02/14/25)
Follow weekly CBC with diff, CMP.
Infusion sheet placed in chart. Case management aware.
Patient reports some 'mushy' stool, which may be secondary to antibiotics. Can try Imodium if continues to be a problem.
���������������������������������������������������������
Chief Complaint
-: Other (Strep. mutans endocarditis)
Subjective / Review of Systems
Patient seen and examined. Reports feeling improved today. Reports more energy.
Review of Systems: No Fever and No Chills
Vital Signs / Physical Exam
Vital Signs
Vital Signs
Temp Pulse Resp BP Pulse Ox
97.4 F 60 18 150/93 97
01/12/25 10:59 01/12/25 10:59 01/12/25 10:59 01/12/25 07:32 01/12/25 10:59
Physical Exam
Constitutional: No Acute Distress, Comfortable, Chronically Ill and Non-toxic
Eyes: Sclera Anicteric
Cardiovascular: Regular Rate, S1/S2 and Other (Positive click)
Pulmonary: Clear and Non Labored
Gastrointestinal: Soft, Non Tender and Non Distended
Extremities: Edema
Wound: Other (Sternal incisional wound clean, dry and intact.)
Neurological: AO x 3
Psychological: Calm
Lines: PICC
Objective Data
Lab Data
Lab Results
01/12/25 04:05
01/12/25 04:05
ESR 58 mm/hour (0-20) H 12/29/24 03:08
PT 22.1 Sec (11.4-14.6) H 01/12/25 04:05
INR 1.92 01/12/25 04:05
APTT 49.9 Sec (23.4-35.0) H 01/03/25 04:42
Estimated Creat Clear 57 ml/min 01/12/25 04:05
Lactic Acid 0.9 mmol/L (0.7-2.0) 12/28/24 03:11
Total Bilirubin 0.5 mg/dl (0.2-1.3) 12/28/24 17:33
AST 42 U/L (17-59) 12/28/24 17:33
ALT 14 U/L (0-50) 12/28/24 17:33
Alkaline Phosphatase 60 U/L (38-126) 12/28/24 17:33
C-Reactive Protein 48.80 mg/L (0.0-10.00) H 12/29/24 03:08
Most recent labs reviewed.
Micro Results:
12/27/24 17:06 Fungal Culture - Preliminary
Heart Culture in progress.
Positive cultures are reported as soon as detected.
Final report to follow in four to five weeks.
12/27/24 17:14 Fungal Culture - Preliminary
Heart Culture in progress.
Positive cultures are reported as soon as detected.
Final report to follow in four to five weeks.
12/30/24 11:06 Blood Culture - Final
Blood/Venous No Growth - Final Report
12/30/24 10:20 Blood Culture - Final
Blood/Venous No Growth - Final Report
12/27/24 17:06 Tissue Culture - Final
Heart Enterobacter cloacae
Gram Stain - Final
12/31/24 10:54 Respiratory Culture - Final
Sputum Elaine albicans
Gram Stain - Final
12/27/24 17:06 Anaerobic Culture - Final
Heart NO ANAEROBES ISOLATED
12/27/24 17:14 Anaerobic Culture - Final
Heart NO ANAEROBES ISOLATED
12/27/24 17:14 Tissue Culture - Final
Heart No Growth After 72 Hours
Gram Stain - Final
12/27/24 12:38 Blood Culture - Final
Blood/Venous No Growth - Final Report
12/27/24 11:47 Blood Culture - Final
Blood/Venous No Growth - Final Report
12/30/24 10:10 Urine Culture - Final
Urine NO GROWTH
12/27/24 15:00 Urine Culture - Final
Urine NO GROWTH
12/27/24 05:31 MRSA Screen - Final
Nose No Methicillin Resistant Staphylococcus aureus isolated.
Tissue Culture Final 01/03/25-0850
Enterobacter cloacae - Isolated from enrichment broth
only.
1. Enterobacter cloacae
M.I.C. RX
--------- ---
Amoxicillin/Potas. Clavulanate >16/8 R
Ampicillin >16 R
Ampicillin/Sulbactam >16/8 R
Aztreonam <=4 S
Cefazolin >16 R
Cefepime <=2 S
Ceftazidime >16 R
Ceftriaxone >2 R
Ertapenem <=0.5 S
Ciprofloxacin <=0.25 S
Gentamicin <=2 S
Meropenem <=1 S
Piperacillin/Tazobactam <=8 S
Tetracycline <=4 S
Tobramycin <=2 S
Trimethoprim/Sulfamethoxazole <=2/38 S .
12/18/2024
11:00 Blood culture ([facility])
Streptococcus mutans
Ampicillin <= 0.25 S
Cefotaxime <=0.12 S
Ceftriaxone <= 0.12 S
Erythromycin <= 0.12 S
Levofloxacin =1 S
Linezolid <= 2 S
Moxifloxacin =0.25 S
Penicillin G <= 0.06 S
Vancomycin =1 S
Imaging:
12/29/2024 CT head without contrast: 'MULTIFOCAL ACUTE SUBARACHNOID HEMORRHAGE with a new small subarachnoid hemorrhage over the inferolateral margin of the right frontal lobe. Small acute subarachnoid hemorrhages in the sulci medial to the right
frontal lobe, anterior to the left frontal lobe, medial to the right parietal-occipital lobe, and posterior to the left parietal lobe which appear unchanged. Hemorrhagic septic emboli is a diagnostic consideration given the history of endocarditis.'
12/25/2024 MRI brain (performed at [facility]): Multiple cortical and subcortical foci of diminished signal intensity on susceptibility weighted sequences. The sequence suggest the presence of blood products. Concern raised for septic
emboli which can demonstrate ischemic changes resulting in restriction diffusion, as well as hemorrhagic damage to the brain. Multiple small embolic infarcts also in the differential. Contrast enhanced examination failed to demonstrate enhancing
lesions or venous filling defects or prominent venous structures thus leptomeningeal carcinomatosis or venous congestion is not consistent with this study. Linear appearing areas of non-FLAIR suppression and diminished signal on susceptibility
weighted sequences suggest associated possible subarachnoid hemorrhage within the bilateral occipital lobes. Please see full dictation for additional detail.
12/22/2024 ECHO (TTE): LV EF = 60%. Mildly dilated left atrium. Severe thickening of the anterior and posterior leaflets of the mitral valve, but without clear vegetations. Moderate sized (0.4 x 0.7 cm oscillating heterogeneous echodensity
attached to the noncoronary cusp. Aortic valve is thickened and calcified with mild to moderate eccentric aortic regurgitation.
--- NOTE | 2025-01-12 13:45 | WOUNDNOTE ---
[facility] RN note: Patient seen for stage 2 sacral pressure injury from [facility] report. Patient's been hospitalized x 17 days and had 2 surgeries. He was not always willing to get out of bed previously as per RN Chau. Patient is not more mobile and willing
to get out of bed. Patient is on a static air overlay and has an air chair cushion. Patient can turn self slowly in bed. Silicone border foam changed on sacrum. Heels off bed with pillow. Instructed patient pressure injury prevention measures and to
take air chair cushion when discharged. Patient's appetite good for lunch. Care plan and discharge instructions to be updated. Consult as needed.
--- NOTE | 2025-01-12 14:02 | WOUNDNOTE ---
[facility] RN note: Updated CT PA Erica Rico and DEN Robles re: patient has sacral stage 2 pressure injury; recommended to CM re: air mattress at SNF/rehab. CT PA approved local care. CM working on getting patient a SNF/rehab bed.
[2025-01-12] MEDS: ROXICODONE 5 MG PO ×2 (14:15→20:23)
--- NOTE | 2025-01-12 14:19 | PTCARENOTE ---
Walked in halls with rolling walker with stand by assistance, tolerated well, suggested he should sit in chair but refused. Medicated with oxycodone for 9 out 10 burning sternal incision pain. In bed resting, call quesada in reach
--- NOTE | 2025-01-12 17:09 | CM ---
dc plans remain uncertain, awaiting bed avail and accept at SNF. f/u call made
[2025-01-12] MEDS: APRESOLINE 100 MG PO ×2 (17:15→22:15)
[2025-01-12] MEDS: COUMADIN 1 MG PO (17:17)
[2025-01-12] MEDS: MUCINEX 600 MG PO (20:22)
--- NOTE | 2025-01-12 20:55 | PTCARENOTE ---
Pt AAO*#, VSS, and SR on TELE monitor. Pt reports severe sternum pain from surgical site, PRN Roxicodone given as ordered. Pt updated on plan of care. Pt educated on importance of repositioning/turning. Pt verbalized understanding of education
and care plan, currently resting with call quesada in reach. Plan of care ongoing, see MAR and flowchart for full pt care and assessment.
[2025-01-12] MEDS: REMOVE LIDOCAINE PATCH REMOVE (22:12)
[2025-01-13] VITALS (29 sets, daily range): BP systolic 81–146; BP diastolic 52–94; PULSE 62–63; O2SAT 97; BMI 24.6
[2025-01-13 03:01] LABS: INR 1.75; PT 20.6 Sec (11.4-14.6)
[2025-01-13 03:22] LABS: Blood Urea Nitrogen 31 mg/dl (9-20); Calcium 7.9 mg/dl (8.4-10.2); Carbon Dioxide 22 mmol/L (22-30); Chloride 112 mmol/L (98-107); Estimated Creatinine Clearance 57 ml/min; Glucose 129 mg/dl (70-99); Magnesium 1.6 mg/dl (1.6-2.3); Potassium 4.6 mmol/L (3.5-5.1); Sodium 139 mmol/L (135-145); eGFR 52.17
--- NOTE | 2025-01-13 04:10 | W.PN.CT ---
Today's Communication / Plan
-
Plan:
-No major issues overnight. Hemodynamically and neurologically intact
-Did have a dream that he was SOB with impending doom overnight, will decrease Roxicodone dose
-On Coumadin for On-X mechanical AVR
-Received Coumadin 1 mg yesterday, INR 1.75 down from 1.92, peaked to 5.37 on 01/02
-Creatinine 1.6, was 1.6 yesterday, peaked to 3.1. Was 2.7 preop. Nephrology is following
-Cont. antibiotics per ID, Rocephin switched to Ertapenem
-On Ethacrynic Acid for diuresis given sulfa allergy, Nephrology following
-Replete electrolytes, mg 1.6 today
-OOB into chair/Ambulate
-PT/OT f/u
-Awaiting therapeutic INR and SNF/Rehab placement ([facility] [place])
Assessment / Plan
-
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
and debridement, c/b post op bleeding from CT and re-exploration/venous bleeding and oozing from the sternum on 12/27/[address] Denney, POD #17
Post-AMANDA: Normal biventricular function w/ LVEF 65%, well-seated AVR w/ mean gradient 11mmHg, normal washing jets. MV w/ MILD-to-mod regurgitation w/ improvement in preoperative RHONDA.
EKG 12/27/24 NSR 1st degree AVB
Radiology: CT [place]: Sm L pleural effusion, mod ascities, mod splenomegaly hypodense lesion upper pole of spleen concern for splenic infarct. MRI: 12/23/24 Multiple cortical and subcortical foci concern for septic emboli which can demonstrate
ischemic changes with restricted diffusion as well as hemorrhagic damage to the brain. Linear areas of non flair suppression and diminished signal suggest possible subarachnoid hemorrhage
Echo 12/22/24 EF 60-65, mild LVH, mildly dilated LA, severe thickening of anterior and posterior mitral leaflets,mild-mod MR, mod sized 0.4 x 0/7 oscillating heterogeneous echodensity attahced to noncoronary cusp, mild-mod AR, PG 23.5/MG 13.1, small
pericardial effusion
Assessment:
-Strep Mutans AV endocarditis
-Acute hypoxic respiratory failure
-Strep Mutans bacteremia
-moderate AI
-moderate MR with RHONDA
-metastatic septic emboli to the brain, spleen
-oliguric CORNELIO on probable CKD IIIb
-Renal calculi
-coagulopathy
-transfusion dependent anemia
-thrombocytopenia
-unintentional weight loss
-dental cap dislodgement
-possible left mandibular canine abscess, per panelipse 12/27
-Panelipse from 12/27 showed suspicious lesion on the left mandibular canine concerning for possible abscess, seen by [facility] 12/29 and determined to be unremarkable, no intervention needed, outpt f/u
-hx anxiety/depression
-hx HTN
-hx opioid addiction per , prescribed for management of recurrent renal stones and escalated after his father's approx. 2 yrs ago (on Buprenorphine preop)
-Acute postop blood loss Anemia on probable Anemia of Chronic CKD (transfused 3u PRBC's, 2u FFPs)
-Acute postop thrombocytopenia (transfused 2 {5pks}of plts)
-Acute postop VDRF/hypoxemia
-Acute postop atelectasis
-Acute postop hypovolemia with subsequent hypervolemia
-Acute postop SAH involving frontal lobe, right parietal occipital lobe and left parietal lobe
-Acute postop suspected Hemorrhagic septic emboli
-Acute CORNELIO on suspected CKD
-Acute postop metabolic acidosis
-Acute postop hyponatremia
-Coumadin anticoagulation for mechanical valve. INR goal is 2
Subjective
-
Date of Service: January 13, 2025
C/o having a bad dream overnight, felt SOB with impending doom
Objective Data
-
Lab Results
01/12/25 04:05
01/13/25 02:41
PT 20.6 Sec (11.4-14.6) H 01/13/25 02:41
INR 1.75 01/13/25 02:41
APTT 49.9 Sec (23.4-35.0) H 01/03/25 04:42
Vital Signs
Vital Signs
Temp Pulse Resp BP Pulse Ox
97.6 F 68 20 136/87 97
01/13/25 02:28 01/13/25 02:28 01/13/25 02:28 01/13/25 02:28 01/13/25 02:28
CT Intake/Output/Weight
01/12/25 01/12/25 01/13/25
06:59 18:59 06:59
Intake Total 720 / 1260 720 / 1200 480 / 1200
Output Total 725 / 725
Balance -5 / 535 720 / 1200 480 / 1200
SaO2: 97
--- NOTE | 2025-01-13 05:23 | PTCARENOTE ---
Pt with gargled speech at 23:27 and demonstrating left upper extremity weakness. Pt reports deep sleep, while stuttering over words. BP 142/[address] LINDY [place] made aware and came to assess pt. Pt symptoms resolved regaining strength
and full movement in left upper extremity. Pt speech resolved back to baseline and NIH unchanged with provider at bedside. Pt updated and verbalizes understanding of assessment and relation to PRN pain medication. NIH unchanged and no further
orders rec'd.
[2025-01-13] MEDS: MAGNESIUM SULFATE 50 IV (05:58)
[2025-01-13] MEDS: TYLENOL 1000 MG PO ×2 (05:59→22:08)
[2025-01-13] MEDS: PROTONIX 40 MG PO (07:45)
[2025-01-13] MEDS: NEURONTIN 300 MG PO (07:45)
[2025-01-13] MEDS: XANAX 0.5 MG PO ×3 (07:45→23:15)
[2025-01-13] MEDS: NORVASC 10 MG PO (07:45)
[2025-01-13] MEDS: PROZAC 40 MG PO (07:46)
[2025-01-13] MEDS: LOW STRENGTH ASPIRIN 81 MG PO (07:46)
[2025-01-13] MEDS: APRESOLINE 100 MG PO (07:46)
[2025-01-13] MEDS: KCL 20 MEQ PO (07:46)
[2025-01-13] MEDS: COREG 25 MG PO ×2 (07:46→20:36)
[2025-01-13] MEDS: PACERONE 200 MG PO ×3 (07:46→22:09)
[2025-01-13] MEDS: EDECRIN 50 MG PO ×2 (07:46→17:26)
--- NOTE | 2025-01-13 08:26 | W.PN.ID1 ---
Date of Service
Date of Service: January 13, 2025
Today's Communication
Continue current antibiotics.
Assessment / Plan
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
- Enterobacter cloacae also isolated from valve tissue (from enrichment broth only)
Suspected septic emboli to the brain
Subarachnoid hemorrhage
Leukocytosis; resolved
Renal insufficiency
Elevated ESR, CRP
HTN
DM type II
Nephrolithiasis
Recommendations:
Repeat blood cultures without growth.
Patient status post valve replacement with mechanical AVR (12/27/2024)
Aortic valve cx: Enterobacter cloacae (on enrichment broth only) - possibly contaminant.
- To error on side of caution, treating both S. mutans and E. cloacae isolates.
-> Continue Ertapenem 1g IV q 24h x 6 weeks (through 02/14/25)
Follow weekly CBC with diff, CMP.
���������������������������������������������������������
Chief Complaint
-: Other (Streptococcus mutans endocarditis)
Subjective / Review of Systems
Patient seen and examined. Reports episode of hallucinations last night which have resolved.
Review of Systems: No Fever and No Chills
Vital Signs / Physical Exam
Vital Signs
Vital Signs
Temp Pulse Resp BP Pulse Ox
97.6 F 71 20 136/87 97
01/13/25 02:28 01/13/25 05:00 01/13/25 02:28 01/13/25 02:28 01/13/25 04:12
Physical Exam
Constitutional: No Acute Distress, Comfortable, Chronically Ill and Non-toxic
Eyes: Sclera Anicteric
Cardiovascular: Regular Rate, S1/S2 and Other (Positive click)
Pulmonary: Clear and Non Labored
Gastrointestinal: Soft, Non Tender and Non Distended
Extremities: Edema
Wound: Other (Sternal incisional wound clean, dry and intact.)
Neurological: AO x 3
Psychological: Calm
Lines: PICC
Objective Data
Lab Data
Lab Results
01/12/25 04:05
01/13/25 02:41
ESR 58 mm/hour (0-20) H 12/29/24 03:08
PT 20.6 Sec (11.4-14.6) H 01/13/25 02:41
INR 1.75 01/13/25 02:41
APTT 49.9 Sec (23.4-35.0) H 01/03/25 04:42
Estimated Creat Clear 57 ml/min 01/13/25 02:41
Lactic Acid 0.9 mmol/L (0.7-2.0) 12/28/24 03:11
Total Bilirubin 0.5 mg/dl (0.2-1.3) 12/28/24 17:33
AST 42 U/L (17-59) 12/28/24 17:33
ALT 14 U/L (0-50) 12/28/24 17:33
Alkaline Phosphatase 60 U/L (38-126) 12/28/24 17:33
C-Reactive Protein 48.80 mg/L (0.0-10.00) H 12/29/24 03:08
Most recent labs reviewed.
Micro Results:
12/27/24 17:14 Fungal Culture - Preliminary
Heart Culture in progress.
Positive cultures are reported as soon as detected.
Final report to follow in four to five weeks.
12/27/24 17:06 Fungal Culture - Preliminary
Heart Culture in progress.
Positive cultures are reported as soon as detected.
Final report to follow in four to five weeks.
12/30/24 11:06 Blood Culture - Final
Blood/Venous No Growth - Final Report
12/30/24 10:20 Blood Culture - Final
Blood/Venous No Growth - Final Report
12/27/24 17:06 Tissue Culture - Final
Heart Enterobacter cloacae
Gram Stain - Final
12/31/24 10:54 Respiratory Culture - Final
Sputum Elaine albicans
Gram Stain - Final
12/27/24 17:06 Anaerobic Culture - Final
Heart NO ANAEROBES ISOLATED
12/27/24 17:14 Anaerobic Culture - Final
Heart NO ANAEROBES ISOLATED
12/27/24 17:14 Tissue Culture - Final
Heart No Growth After 72 Hours
Gram Stain - Final
12/27/24 12:38 Blood Culture - Final
Blood/Venous No Growth - Final Report
12/27/24 11:47 Blood Culture - Final
Blood/Venous No Growth - Final Report
12/30/24 10:10 Urine Culture - Final
Urine NO GROWTH
12/27/24 15:00 Urine Culture - Final
Urine NO GROWTH
12/27/24 05:31 MRSA Screen - Final
Nose No Methicillin Resistant Staphylococcus aureus isolated.
Tissue Culture Final 01/03/25-0850
Enterobacter cloacae - Isolated from enrichment broth
only.
1. Enterobacter cloacae
M.I.C. RX
--------- ---
Amoxicillin/Potas. Clavulanate >16/8 R
Ampicillin >16 R
Ampicillin/Sulbactam >16/8 R
Aztreonam <=4 S
Cefazolin >16 R
Cefepime <=2 S
Ceftazidime >16 R
Ceftriaxone >2 R
Ertapenem <=0.5 S
Ciprofloxacin <=0.25 S
Gentamicin <=2 S
Meropenem <=1 S
Piperacillin/Tazobactam <=8 S
Tetracycline <=4 S
Tobramycin <=2 S
Trimethoprim/Sulfamethoxazole <=2/38 S .
12/18/2024
11:00 Blood culture ([facility])
Streptococcus mutans
Ampicillin <= 0.25 S
Cefotaxime <=0.12 S
Ceftriaxone <= 0.12 S
Erythromycin <= 0.12 S
Levofloxacin =1 S
Linezolid <= 2 S
Moxifloxacin =0.25 S
Penicillin G <= 0.06 S
Vancomycin =1 S
Imaging:
01/02/2025 MRI brain: There are foci of subarachnoid hemorrhage involving the anterior left frontal lobe, posterior left occipital lobe and right frontoparietal region. The subarachnoid blood products within the right frontoparietal region/central
sulcus are not definitely visualized on prior CT and likely new from prior examination. There are small foci of restricted diffusion within the left centrum semiovale and anterior left insular cortex which likely represent acute/subacute
infarctions. There is a 6 mm T2 heterogeneous lesion with associated blooming artifact in the subcortical inferior right frontal lobe which may represent a small cavernoma or possible chronic intraparenchymal hematoma.
12/29/2024 CT head without contrast: 'MULTIFOCAL ACUTE SUBARACHNOID HEMORRHAGE with a new small subarachnoid hemorrhage over the inferolateral margin of the right frontal lobe. Small acute subarachnoid hemorrhages in the sulci medial to the right
frontal lobe, anterior to the left frontal lobe, medial to the right parietal-occipital lobe, and posterior to the left parietal lobe which appear unchanged. Hemorrhagic septic emboli is a diagnostic consideration given the history of endocarditis.'
12/25/2024 MRI brain (performed at [facility]): Multiple cortical and subcortical foci of diminished signal intensity on susceptibility weighted sequences. The sequence suggest the presence of blood products. Concern raised for septic
emboli which can demonstrate ischemic changes resulting in restriction diffusion, as well as hemorrhagic damage to the brain. Multiple small embolic infarcts also in the differential. Contrast enhanced examination failed to demonstrate enhancing
lesions or venous filling defects or prominent venous structures thus leptomeningeal carcinomatosis or venous congestion is not consistent with this study. Linear appearing areas of non-FLAIR suppression and diminished signal on susceptibility
weighted sequences suggest associated possible subarachnoid hemorrhage within the bilateral occipital lobes. Please see full dictation for additional detail.
12/22/2024 ECHO (TTE): LV EF = 60%. Mildly dilated left atrium. Severe thickening of the anterior and posterior leaflets of the mitral valve, but without clear vegetations. Moderate sized (0.4 x 0.7 cm oscillating heterogeneous echodensity
attached to the noncoronary cusp. Aortic valve is thickened and calcified with mild to moderate eccentric aortic regurgitation.
--- NOTE | 2025-01-13 08:46 | W.PN.CD ---
Today's Communication / Plan
-
add aldactone and stop KCL
Impression / Plan
-
I/P: 49-year-old man with no previous cardiac history who presents with unintentional weight loss since October found to have aortic valve endocarditis complicated by septic emboli to the brain and spleen, s/p AoV replacement and extensive debridement
with Dr. Denney on 12/27/24. Course complicated by subarachnoid hemorrhage.
Outpatient [employer]ker: [facility]
Strep mutans aortic valve endocarditis
- Complicated by CVA with hemorrhagic conversion, CORNELIO, & splenic infarct
- Now s/p complex open heart surgery (12/27/2024) with mechanical AVR, debridement LVOT/MV structures
- Continue antibiotic therapy per ID
Mechanical aortic valve replacement: On-X
-Warfarin and ASA 81mg
-Post AMANDA MG 11mg
Hypertension
-continue Amlodipine 10 mg
-cont coreg 25mg bid
-continue hydralazine 100mg tid
-Avoiding JUAN/ARB with recovering CORNELIO
Chronic HFPEF
- B/L LE edema without orthopnea & without SOB
- On ethacrynic acid per nephrology- continue and monitor
-add aldactone and stop KCL
Post op new LBBB/IVCD, follow telemetry:
-stable in SR
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
CVA, MRI pending, LDL above goal at 72
Splenic infarct, in setting of endocarditis
Thrombocytopenia/anemia
History of opioid abuse, off Subutex, psychiatry has signed off
Data:
OR, Dr. Denney, 12/27/2024:
Functionally bicuspid AV (with partial fusion of LCC and RCC), NCC w/ significant destruction w/ embolic vegetations on aortic and ventricular surfaces; one vegetation with very narrow stalk.
S/P mechanical AVR (25 mm On-X) s/p explant and redo AVR (23mm On-x), LVOT vegetation debridement, MV chordae vegetation resection and debridement.
Complicated by post op bleeding and re-exploration/venous bleeding and oozing from the sternum.
HEAD CT 12/31/24:
COMPARISON: 12/30/2024
The ventricles are normal in size, configuration, and position.
The previously seen small areas of high attenuation suggesting subarachnoid hemorrhage or hemorrhagic septic emboli are either stable or decreased.
There are no new similar findings. There is no intra- or extra-axial mass.
There is no midline shift nor mass effect. Visualized paranasal sinuses show minimal mucosal thickening of the right maxillary sinus.
IMPRESSION:
Improved or stable findings suggesting small foci of intracranial hemorrhage. No new pathology identified.
Physical Exam
Vital Signs/Labs
Vital Signs
Temp Pulse Resp BP Pulse Ox
97.6 F 71 20 136/87 97
01/13/25 02:28 01/13/25 05:00 01/13/25 02:28 01/13/25 02:28 01/13/25 04:12
01/12/25 01/13/25 01/14/25
06:59 06:59 06:59
Actual Weight 77.7 kg 77.7 kg
01/12/25 04:05
01/13/25 02:41
PT 20.6 Sec (11.4-14.6) H 01/13/25 02:41
INR 1.75 01/13/25 02:41
APTT 49.9 Sec (23.4-35.0) H 01/03/25 04:42
Magnesium 1.6 mg/dl (1.6-2.3) 01/13/25 02:41
Triglycerides Cancelled 01/01/25 12:16
LDL Cholesterol, Calc Cancelled 01/01/25 12:16
VLDL Cholesterol, Calc Cancelled 01/01/25 12:16
HDL Cholesterol Cancelled 01/01/25 12:16
Physical Exam
Constitutional: No acute distress and Comfortable
EENT: Moist mucous membranes
Cardiovascular: Rhythm & rate is regular, JVD pressure is normal, Systolic murmur absent, Pedal edema present and Other (+mechanical valve click)
Respiratory: Respiratory effort normal and Lungs clear to auscul.
Neuro/Psych: AO x 3
Data Reviewed
-
Date of Service: January 13, 2025
EKG: Other (SR 70s)
Labs: Labs Reviewed by me
[2025-01-13] MEDS: LIDOCAINE 4% PATCH TOPICAL (08:50)
[2025-01-13] MEDS: SENOKOT-S PO ×2 (08:51→19:37)
[2025-01-13] MEDS: ALDACTONE 25 MG PO (10:11)
[2025-01-13] MEDS: INVANZ 60 MG IV (10:11)
--- NOTE | 2025-01-13 10:50 | PTCARENOTE ---
Patient out of bed, walking in the hallway using rolling walker with stand by assistance. He is AO x3, speech clear. Denies pain or shortness of breath. Sternal incision healing, scabbed, [employer]ING [employer]. Edema improving. Patient in bed now resting, call quesada
in reach
--- NOTE | 2025-01-13 12:49 | PTCARENOTE ---
Called in by patient, weakness left hand grasp, no left arm weakness, able to raise arm and hold in air. His left hand grasp is slightly weaker in comparison to the right. Patient requesting to walk to the bathroom, feeling the urge to move his
bowels. BP checked standing 81/53 and he stated he was feeling lightheaded. Patient returned to bed, placed on a bedpan. BP reassessed 105/71 and symptoms resolved. Improved sensation and movement to left hand now, hand remains to have some edema.
NIH score 0, his left hand grasp is slightly weaker and unchanged from prior exam. Erica Rico and Dr. Pizarro notified
--- NOTE | 2025-01-13 12:50 | W.PN.HOSP.TC ---
Addendum entered and electronically signed by Joes A Odell MD 01/13/25 14:07:
also on AMIODARONE for Afib prophylaxis which needs to be stopped on discharge per CT surgery.
Original Note:
Today's Communication/Plan
-
Continue with Coumadin with CT surgery
Monitor blood pressure
Monitor for hypotension
Continue with IV antibiotic
Holding Ambien
DC Flexeril
Monitor mentation
Assessment / Plan
Assessment / Plan
Impression:
49-year-old male past medical history of depression, hypertension, insomnia, kidney stones who originally presented to [facility] on 12/17 for generalized weakness. stated that he has been declining for months and was fired from his job
2 months ago and since then has been increasingly depressed, with failure to thrive. He has had decreased p.o. intake, decreased urine output and constipation. He had 30 pounds of weight loss. He was also unsteady on his feet. He did not have
falls or dizziness or lightheadedness or vision changes or numbness or tingling or focal weakness. No fevers or chills. No chest pain or palpitations. No shortness of breath or cough. No nausea or vomiting.
Patient was found to be anemic with hemoglobin of 6.9, thrombocytopenia with platelets of 97. He was found to have acute renal failure with creatinine of 4.84. He was given 2 units of blood transfusion. He was found to have k[place] valve aortic
endocarditis with strep possibly due to indolent dental infection as he had a cap Fall off approximately a month ago.
Seen by CT surgery and underwent to the operating room for aortic valve replacement status post explant and redo aortic valve placement, vegetation debridement, septal myomectomy, with postop bleeding and reexploration/venous bleeding and oozing
from the sternum, also developed subarachnoid hemorrhage and was eval by neurology and repeat brain imaging with stable hemorrhage. Patient without any neurological deficit and was restarted on Coumadin. Status post aggressive IV diuresis and now
maintained on p.o. diuretics. Blood pressure meds are being adjusted by cardiology. Remains on IV antibiotics with ertapenem. Currently ongoing disposition planning which remains complicated.
Assessment/plan:
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
#Streptococcus mutans bacteremia
#Acute hypoxic respiratory failure. Resolved.
Patient had extensive hematologic workup which was notable for lupus anticoagulant of 44 (normal <40), possible restricted M spike on protein electrophoresis, procalcitonin of 0.65, IgM kappa monoclonal band present on serum immunofixation,
hrvf-qsyffx-iizwlwuw DNA titer 1.1 (normal <1.1), free kappa light chains of 154, free lambda chains of 125, PT of 15.8,
Negative labs include fibrinogen, ANCA negative, Dani viper venom screen negative, antibeta-2 glycoprotein IgG antibody and IgA antibody, glomerular basement membrane IgG antibody, anticardiolipin IgG antibody, anticardiolipin IgM antibody, C3,
C4, hepatitis B surface antigen, surface antibody, hep C antibody, antistreptolysin O antibody, malaria/Babesia smear,
[place] lambda light chain ratio 1.23,
Echo showed EF of 60 to 65% severe thickening of the anterior posterior leaflets of the mitral valve without clear vegetations, moderate-sized oscillating heterogeneous echodensity attached to the noncoronary cusp, aortic valve is thickened and
calcified, mild to moderate eccentric aortic regurgitation, mild to moderate mitral regurgitation, small pericardial effusion, small left pleural effusion
Transferred to [place] for curative aortic valve replacement given septic emboli to the brain
Underwent to the operating room status post s/p AVR s/p explant and redo AVR , LVOT vegetation debridement, Septal myomectomy/vegectomy, MV chordae vegetation resection and debridement, c/b post op bleeding from CT and re-exploration/venous
bleeding and oozing from the sternum on 12/27/[address] Denney PER CT surgery.
IV antibiotics was transitioned to ertapenem. Goal is continue antibiotics through 02/11/2025
CT surgery plan is to continue aspirin and Coumadin.
#Stroke with hemorrhagic conversion likely secondary to septic emboli
Was initiated on Keppra however now discontinued
Reinitiate on anticoagulation. Patient currently AO x 3. Non-focal grossly intact.
#Chronic coagulopathy with Coumadin
# History of supratherapeutic INR
INR subtherapeutic at 1.75
Coumadin dose increased per CT surgery
Trend INR daily
Cautious slow uptrend of INR recommended with history of hemorrhagic conversion
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
On antibiotics
#Chronic HFpEF
Continue with ethacrynic acid 50 mg twice daily
Strict I's and O's. Daily weights.
Aldactone added. Continue with beta-ck, aspirin
Unable to do JUAN/ARB due to elevated creatinine
Cardiology following
#Primary hypertension
Continue with diuresis, Aldactone, carvedilol and hydralazine and norvasc
Monitor for hypotension
#Acute kidney injury on suspected CKD 3B possibly thromboembolic vs glomerulonephritis vs vasculitic
Creatinine plateaued at 1.6. Continue with diuresis. Nephrology signed off.
#Anemia of chronic disease
#Acute blood loss anemia status post surgery
Status post 5 units of PRBC
monitor Hb
Transfuse for hemoglobin less than 7
#Acute postop thrombocytopenia
status post 2 units of platelet transfusion and 2 units of FFP
Continue to trend CBC
Tooth filling cap dislodgement
-outpatient follow up with dentist
Anxiety/depression
-continue xanax, fluoxetine, mirtazepine
History of opiate abuse
Was on Suboxone.
Limited opioid.
Hallucinations overnight likely combination of multiple medications
Hold Ambien
DC Flexeril
Decrease pain meds
Off Subutex
CODE STATUS: Full code
DVT prophylaxis: Coumadin
PT recs SNF. CM aware. Await placement.
Anticipated Discharge: > 48 hours
Subjective/Interval History
-
Date of Service: January 13, 2025
States of overnight events of hallucinations
Currently without any auditory or visual hallucinations
Objective Data
-
Labs:
Laboratory Results
01/13/25
02:41
PT 20.6 H
INR 1.75
Sodium 139
Potassium 4.6
Chloride 112 H
Carbon Dioxide 22
BUN 31 H
Creatinine 1.6 H
Glucose 129 H
Calcium 7.9 L
Vital Signs:
Vital Signs
Temp Pulse Resp BP Pulse Ox
97.8 F 61 18 105/71 98
01/13/25 12:38 01/13/25 12:45 01/13/25 12:38 01/13/25 12:45 01/13/25 12:38
I&O
01/12/25 01/13/25 01/14/25
06:59 06:59 06:59
Intake Total 1260 / 1260 1200 / 1200
Output Total 725 / 725 600 / 600
Balance 535 / 535 600 / 600
Data Reviewed
-
Total Time Spent with Patient (in minutes): 60
--- NOTE | 2025-01-13 13:40 | PTCARENOTE ---
BP 127/77, assisted to the bathroom with rolling walker. Large brown stool. Denies lightheadedness or dizziness. In bed now, call [place]ada in reach
--- NOTE | 2025-01-13 14:42 | W.DCSUMMARY ---
Discharge Summary
Discharge Data
Date of Admission: 12/26/24
Date of Discharge: 01/14/25
-
Pending Results: No
Hospital Course
Primary care physician: none; Dr. Luis Turner follows pt for Subutex (no longer taking)
Outpatient field consultant: Karl Mcgowan
Inpatient consultants: [facility] cardiology, infectious diseases, pulmonary flour mixer, nephrology, neurology, psychiatry
Procedures:
1. aortic valve rplacement
Primary Diagnosis:
1. Strep mutans bacteremia with [place] aortic valve endocarditis
Secondary Diagnoses:
1. Acute hypoxic respiratory failure
2. moderate AI
3. moderate MR with RHONDA
4. septic emboli to the brain, spleen
5. oliguric CORNELIO on probable CKD IIIb
6. Hx Renal calculi
7. possible left mandibular canine abscess, [facility]
8. hx anxiety/depression
9. HTN
10. hx opioid addiction per , prescribed for management of recurrent renal stones and escalated after his father's approx. 2 yrs ago (on Buprenorphine preop)
11. Acute postop blood loss Anemia on probable Anemia of Chronic CKD (transfused 3u PRBC's, 2u FFPs)
12. Acute postop thrombocytopenia (transfused 2 {5pks}of plts)
13. Acute postop VDRF/hypoxemia
14. Acute postop atelectasis
15. Acute postop hypovolemia with subsequent hypervolemia
16. Acute postop SAH involving frontal lobe, right parietal occipital lobe and left parietal lobe
17. Acute postop hyponatremia
18. Coumadin anticoagulation for mechanical valve. INR goal is 2
19. deconditioning
HPI: Mr Kwan is a 49 yo male with hx HTN, remote hx of syncope 2011, renal stones, anxiety, depression and insomnia. He presented to [facility] on 12/17 for generalized weakness, feeling tired, failure to thrive, difficulty with balance, unintentional
weight loss >30 lbs since October. He has been increasingly depressed since loosing his job and health insurance 2 months ago with decreased po intake, decreased urine output and constipation. He denies having any fever or chills, difficulty
swallowing or any nausea, vomiting, abdominal or back pain, no chest pain, sob or cough.
Pt was found to be anemic with Hg 6.5, low platelets 97, in acute renal failure with BUN 78, Cr 4.84 (trended down to 2.86, no need of HD), trop T 896. BNP 94740 with trace leg edema. He was hemodynamically stable. CXR showed small L pleural
effusion, no opacities or consolidations. CT of abdomen/pelvis revealed moderate ascites, moderate splenomegaly, evidence of splenic infarct, multiple nonobstructing renal calculi, diffuse subcutaneous edema in the abdominal and pelvic wall. He was
also found to have septic emboli to the brain with bilateral cortical and subcortical cerebral involvement. Pt was given 2 units blood transfusion. He was diagnosed with aortic valve endocarditis with new mild-moderate aortic insufficiency, mild-mod
MR, nl EF 60-65%. Blood cultures grew out Streptococcus mutans and have been negative since 12/20. Pt had R upper extremity PICC line placed and has been treated with iv Ceftriaxone. Endocarditis source was suspected due to indolent dental infection
as he had a cap fall off approximately a month ago. He denies any toothache or abscess.
He underwent extensive work-up of anemia by Hematology, which was notable for elevated lupus anticoagulant of 44 (normal <40), possible restricted M spike on protein electrophoresis, elevated procalcitonin 0.65, IgM kappa monoclonal band present on
serum immunofixation, bxat-hicaxu-wyjmdzcv DNA titer of 1.1 (normal <1.1), free kappa light chains of 154, free lambda chains of 125, PT 15.8, normal fibrinogen.
Hospital course: Pt was transferred to on 12/26/24 for further workup and treatment of infective endocarditis. He is afebrile, in nsr 80 bpm, pOx 97% on RA, no distress, has cardiac murmur and b/l LE edema on initial exam. Patient was evaluated
by CT surgery and taken to the operating room on 12/27/2024 for aortic valve replacement #23 mm On�X mechanical valve, limited septal myomectomy w/ removal of LVOT vegetations, debridement of mitral chordae by Dr. Kranthi Denney. For further details
please see operative report. Patient received 4 units PRBCs, 2 units FFP, and 2 pools of platelets IntraOp. Postprocedure AMANDA reported an EF of 65% with mean AV gradient of 11 m of mercury. Patient returned to CVICU on Levophed. Patient returned
to CVICU with initial ABG reporting hypoxia and hypercapnia. FiO2 and PEEP were increased. Patient was extubated at 1230 the following day. Patient was evaluated by infectious disease and Rocephin initiated which was later changed to Ertapenem.
A stroke alert was called for new dysphagia on postoperative day [address] of the head reported small subarachnoid hemorrhage in the right frontal lobe and anterior left frontal lobe in the medial right parietal/occipital lobe. EEG reported moderate
to severe generalized slowing. Neurology evaluated patient again Keppra. Pleural chest tubes are discontinued on postoperative day #3 and patient diuresed with endocrine due to sulfa allergy with noted anaphylaxis. A repeat CT of the head was
performed and stable. Heparin infusion for mechanical valve anticoagulation was initiated. Home Subutex was resumed. Coumadin initiated. Patient planned escalating postoperative pain and gabapentin raised to 300 mg twice daily. After 2 doses of
Coumadin 2.5 mg, INR increased to 4. Heparin was discontinued and Coumadin held. Temporary pacing wires were clipped to skin level. On postoperative day #1, patient refused Subutex stating he had been weaning himself off prior to admission. PDMP
was reviewed and patient's pain Dr. Luis Turner's office was called to verify Subutex protocol. Office staff stated patient had been tapering Subutex and Dr. Ray was in agreement. Nephrology had followed for postoperative CORNELIO and signed off
on 01/07/2025. Patient's blood pressure continued to rise and hydralazine dosing was escalated to a max of 100 mg 3 times daily. Patient was dosed with Coumadin 1 mg for the following 5 days for therapeutic INR. On 01/13, INR dipped to 1.75 and a
dose of Coumadin 2 mg was given. Patient's systolic blood pressure was in the 90s and hydralazine dose decreased to 50 mg 3 times daily. Patient recommended to follow-up for neurology for SAH/CVA and dental for tooth #22 due to suspected granuloma
vs abscess. on 01/14, INR was 2.24 and Coumadin 1mg daily prescribed at discharge. Cardiology will monitor INR after rehab discharge. Patient received Ertapenem dose prior to DC.
Home medication changes:
See below
Discharge Plan
-
Patient Disposition: Fpc/SNF
Discharge Diagnosis/Procedures: Strep mutans aortic valve endocarditis/Aortic valve replacement (mechanical), septal myectomy
Stroke with hemorrhagic conversion likely secondary to septic emboli
Chronic coagulopathy with Coumadin
History of supratherapeutic INR
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
Acute kidney injury on suspected CKD 3B possibly thromboembolic vs glomerulonephritis vs vasculitic
Acute blood loss anemia status post surgery Status post 5 units of PRBC
Acute postop thrombocytopenia status post 2 units of platelet transfusion and 2 units of FFP
Condition: Fair
Diet: No restrictions
Activity: No strenuous activity
Driving Restrictions: Not until seen by your Dr
Bathing Restrictions: OK to Shower
Blood Work: INR in 2 days via primary doctor or Dr. Pretty
Other Services: Cardiac Rehab
Specialty Instructions: Weigh Daily- Call MD for wt gain/loss 3 lbs overnight/5 lbs in 1 week
Activity Restrictions/Additional Instructions:
1. Continue Ertapenem 1g IV q24h through 02/14/2025.
2. Follow weekly CBC/diff and CMP , ESR and CRP while on Ertapenem.
Sacral ulcer-clean with saline or soap and water, silicone border foam, change q 3 days and prn loosened dressing.
Pressure redistributing chair cushion (i.e. Air, gel).
Evaluate for an air mattress.
Call [facility] Cardiac Rehab to get scheduled for their outpatient program. [phone].
Your INR is 2.24 on 01/14/2025. INR goal is 2-[address] surgery[address]
Referrals:
Ruy Key DO [Active, Infectious Diseases] - in three to four weeks
Freda Pretty MD [Non-Admitting Privileges, Cardiology] - 02/26/25 2:10 pm
Kranthi Denney MD [Active, Cardiac Surgery] - 01/27/25 3:00 pm
UNKNOWN,NO INTERVIEW [Family Provider]
Prescriptions:
New
amlodipine 10 mg Tablet
10 mg PO DAILY Qty: 0 0RF
Ertapenem [Invanz] 1000 MG
0.9% Sodium Chloride [Nss] 50 ML
120 mls/hr IV Q24H
Reason for use: strep mutans endocarditis (end date 02/14/25)
Ordered By: Erica Rico CRNP
Last Taken: 01/14/25 09:33 60 mls
warfarin 1 mg tablet
1 mg PO DAILY Qty: 30 0RF
carvedilol 25 mg Tablet
25 mg PO BID Qty: 0 0RF
acetaminophen [Tylenol Extra Strength] 500 mg Tablet
1,000 mg PO TID@0600,1400,2200 Qty: 0 0RF
aspirin 81 mg Tablet,Chewable
81 mg PO DAILY Qty: 0 0RF
ethacrynic acid 25 mg Tablet
50 mg PO BID@0800,1600 Qty: 0 0RF
pantoprazole 40 mg Tablet,Delayed Release (Dr/Ec)
40 mg PO DAILY Qty: 0 0RF
gabapentin 100 mg Capsule
300 mg PO BID Qty: 0 0RF
guaifenesin 600 mg Tablet Extended Release 12hr
600 mg PO Q12 Qty: 0 0RF
spironolactone 25 mg Tablet
25 mg PO DAILY Qty: 0 0RF
Rx Instructions:
Hold for sbp<100
hydralazine 50 mg Tablet
50 mg PO TID Qty: 0 0RF
Rx Instructions:
Hold for SBP<100
zolpidem [Ambien] 10 mg tablet
10 mg PO HS PRN (Reason: insomnia) Qty: 3 0RF
Continued
fluoxetine 40 mg Capsule
40 mg PO DAILY
Changed
alprazolam 0.5 mg Tablet
0.5 mg PO DAILY PRN (Reason: Mental Health/Anxiety) Qty: 3 0RF
Discontinued
amlodipine 5 mg Tablet
5 mg PO DAILY
zolpidem 12.5 mg Tablet,Ext Release Multiphase
12.5 mg PO HS
buprenorphine HCl 8 mg Tablet, Sublingual
8 mg SUBLINGUAL DAILY
Discharge Orders:
Discharge Patient (As Directed); Ordered 01/14/25
Ordered By: Jose A Odell
Care Plan Goals
Care Plan Goals:
Problem: Readiness for enhanced knowledge related to diagnosis and treatment plan
Goal: Understand your diagnosis and treatment plan needs, including medications if applicable.
Instructions: Know your diagnosis, underlying causes and treatment plan options, including medications if applicable. Consult with your health care team to learn about your diagnosis and treatment plan, including medications if applicable.
Discharge Date and Time
Print Language: TURKISH
[2025-01-13] MEDS: TYLENOL PO (15:03)
--- NOTE | 2025-01-13 16:48 | CM ---
spoke to erica at [facility], they have accepted him and have bed availability for tomorrow. he is agreeable to [facility] transportation
[2025-01-13] MEDS: COUMADIN 2 MG PO (17:25)
[2025-01-13] MEDS: APRESOLINE 50 MG PO ×2 (17:26→22:08)
[2025-01-13] MEDS: REMOVE LIDOCAINE PATCH REMOVE (19:36)
[2025-01-13] MEDS: NEURONTIN PO (20:26)
[2025-01-13] MEDS: IMODIUM 2 MG PO (22:08)
--- NOTE | 2025-01-13 23:48 | PTCARENOTE ---
Patient received at change of shift resting in the bed. Reports no pain at this time but does feel anxious regarding anticipated discharge to SNF tomorrow. Sternal incision CLIENT RELATION SPECIALIST. Neurological check WDL. NIH zero. RUE PICC line intact, blood return
noted. Oxygen saturation on room air 95-97%. Sinus rhythm on telemetry with first degree AVB, BBB, and prolonged QT interval. PRN alprazolam given for anxiety, see MAR. Denies feeling lightheaded of dizzy at this time. Plan of care discussed. Call
[place] within reach. Care ongoing.
[2025-01-14 02:20] VITALS: BP 119/79
[2025-01-14 02:33] VITALS: BMI 24.3
[2025-01-14 03:02] LABS: Blood Urea Nitrogen 32 mg/dl (9-20); Calcium 8.1 mg/dl (8.4-10.2); Carbon Dioxide 23 mmol/L (22-30); Chloride 114 mmol/L (98-107); Estimated Creatinine Clearance 54 ml/min; Glucose 100 mg/dl (70-99); Magnesium 1.9 mg/dl (1.6-2.3); Potassium 4.6 mmol/L (3.5-5.1); Sodium 138 mmol/L (135-145); eGFR 48.51
[2025-01-14 03:05] LABS: C-Reactive Protein 12.90 mg/L (0.0-10.00)
[2025-01-14 03:18] LABS: INR 2.24; PT 24.8 Sec (11.4-14.6)
[2025-01-14] MEDS: TYLENOL 1000 MG PO (05:59)
--- NOTE | 2025-01-14 06:16 | W.PN.UPDATE ---
Update Note
Progress Note Update
-no issues overnight
-got 2 mg on 01/13 for INR 1.75. INR today 2.24
-will likely need Coumadin 1 mg daily with 2 mg once per week
-plans for d/c to [facility] today
-appreciate everyone's input
[2025-01-14 07:22] VITALS: BP 173/91
[2025-01-14] MEDS: EDECRIN 50 MG PO (08:15)
[2025-01-14] MEDS: ALDACTONE 25 MG PO (08:16)
[2025-01-14] MEDS: APRESOLINE 50 MG PO (08:16)
[2025-01-14] MEDS: NORVASC 10 MG PO (08:16)
[2025-01-14] MEDS: COREG 25 MG PO (08:17)
[2025-01-14] MEDS: PROTONIX 40 MG PO (08:17)
[2025-01-14] MEDS: PACERONE 200 MG PO (08:17)
[2025-01-14] MEDS: PROZAC 40 MG PO (08:17)
[2025-01-14] MEDS: LOW STRENGTH ASPIRIN 81 MG PO (08:17)
[2025-01-14] MEDS: NEURONTIN PO (08:18)
[2025-01-14] MEDS: LIDOCAINE 4% PATCH TOPICAL (08:18)
[2025-01-14] MEDS: SENOKOT-S PO (08:19)
--- NOTE | 2025-01-14 08:23 | W.PN.CD ---
Today's Communication / Plan
-
Discharge CV med regimen: Carvedilol 25 BID, hydral 50 TID, spironolactone 25, amlodipine 10, ASA 81, Warfarin
We will schedule follow-up in our office
Impression / Plan
-
I/P: 49-year-old man with no previous cardiac history who presents with unintentional weight loss since October found to have aortic valve endocarditis complicated by septic emboli to the brain and spleen, s/p AoV replacement and extensive debridement
with Dr. Denney on 12/27/24. Course complicated by subarachnoid hemorrhage.
Outpatient Manager Resort: [facility]
Strep mutans aortic valve endocarditis
- Complicated by CVA with hemorrhagic conversion, CORNELIO, & splenic infarct
- Now s/p complex open heart surgery (12/27/2024) with mechanical AVR, debridement LVOT/MV structures
- Continue antibiotic therapy per ID
Mechanical aortic valve replacement: On-X
-Warfarin and ASA 81mg
-Post AMANDA MG 11mg
Hypertension
-continue Amlodipine 10 mg
-cont coreg 25mg bid
-continue hydralazine 50mg tid (lowered for hypotensive episode)
-Avoiding JUAN/ARB with recovering CORNELIO
Chronic HFPEF
- B/L LE edema without orthopnea & without SOB
- On ethacrynic acid per nephrology- continue and monitor
-continue aldactone
Post op new LBBB/IVCD, follow telemetry:
-stable in SR
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
CVA, MRI pending, LDL above goal at 72
Splenic infarct, in setting of endocarditis
Thrombocytopenia/anemia
History of opioid abuse, off Subutex, psychiatry has signed off
Data:
OR, Dr. Denney, 12/27/2024:
Functionally bicuspid AV (with partial fusion of LCC and RCC), NCC w/ significant destruction w/ embolic vegetations on aortic and ventricular surfaces; one vegetation with very narrow stalk.
S/P mechanical AVR (25 mm On-X) s/p explant and redo AVR (23mm On-x), LVOT vegetation debridement, MV chordae vegetation resection and debridement.
Complicated by post op bleeding and re-exploration/venous bleeding and oozing from the sternum.
HEAD CT 12/31/24:
COMPARISON: 12/30/2024
The ventricles are normal in size, configuration, and position.
The previously seen small areas of high attenuation suggesting subarachnoid hemorrhage or hemorrhagic septic emboli are either stable or decreased.
There are no new similar findings. There is no intra- or extra-axial mass.
There is no midline shift nor mass effect. Visualized paranasal sinuses show minimal mucosal thickening of the right maxillary sinus.
IMPRESSION:
Improved or stable findings suggesting small foci of intracranial hemorrhage. No new pathology identified.
Physical Exam
Vital Signs/Labs
Vital Signs
Temp Pulse Resp BP Pulse Ox
97.5 F 69 20 173/91 97
01/14/25 07:59 01/14/25 07:22 01/14/25 02:20 01/14/25 07:22 01/14/25 07:59
01/13/25 01/14/25 01/15/25
06:59 06:59 06:59
Actual Weight 171 lb 4.787 oz 169 lb 5.04 oz
01/12/25 04:05
01/14/25 02:26
PT 24.8 Sec (11.4-14.6) H 01/14/25 02:26
INR 2.24 01/14/25 02:26
APTT 49.9 Sec (23.4-35.0) H 01/03/25 04:42
Magnesium 1.9 mg/dl (1.6-2.3) 01/14/25 02:26
Triglycerides Cancelled 01/01/25 12:16
LDL Cholesterol, Calc Cancelled 01/01/25 12:16
VLDL Cholesterol, Calc Cancelled 01/01/25 12:16
HDL Cholesterol Cancelled 01/01/25 12:16
Physical Exam
Constitutional: No acute distress and Comfortable
Cardiovascular: Rhythm & rate is regular, Pedal edema present (trace pitting) and S1S2 is normal (mechanical valve audible)
Respiratory: Respiratory effort normal and Lungs clear to auscul.
Neuro/Psych: AO x 3
Data Reviewed
-
Date of Service: January 14, 2025
Medical Decision Making: Reviewed Test Results, Independent Historian Assessment, Test Interpretation and Review of Case with other Provider
EKG: Tracing Personally Visualized and interpreted
Echo: Report Reviewed by me
Labs: Labs Reviewed by me
--- NOTE | 2025-01-14 08:58 | W.PN.ID1 ---
Date of Service
Date of Service: January 14, 2025
Today's Communication
Continue antibiotics. See below�
Assessment / Plan
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
- Enterobacter cloacae also isolated from valve tissue (from enrichment broth only)
Suspected septic emboli to the brain
Subarachnoid hemorrhage
Leukocytosis; resolved
Renal insufficiency
Elevated ESR, CRP
HTN
DM type II
Nephrolithiasis
Recommendations:
Repeat blood cultures without growth.
Patient status post valve replacement with mechanical AVR (12/27/2024)
Aortic valve cx: Enterobacter cloacae (on enrichment broth only) - possibly contaminant.
- To error on side of caution, treating both S. mutans and E. cloacae isolates.
-> Continue Ertapenem 1g IV q 24h x 6 weeks (through 02/14/25)
--> Follow weekly CBC with diff, CMP, ESR / CRP.
���������������������������������������������������������
Chief Complaint
-: Other (Streptococcus mutans endocarditis)
Subjective / Review of Systems
Patient seen and examined. Reports feeling well today.
Review of Systems: No Fever and No Chills
Vital Signs / Physical Exam
Vital Signs
Vital Signs
Temp Pulse Resp BP Pulse Ox
97.5 F 69 16 173/91 97
01/14/25 07:59 01/14/25 07:22 01/14/25 08:22 01/14/25 07:22 01/14/25 08:25
Physical Exam
Constitutional: No Acute Distress, Comfortable, Chronically Ill and Non-toxic
Eyes: Sclera Anicteric
Cardiovascular: Regular Rate, S1/S2 and Other (Positive click)
Pulmonary: Clear and Non Labored
Gastrointestinal: Soft, Non Tender and Non Distended
Extremities: Edema
Wound: Other (Sternal incisional wound clean, dry and intact.)
Neurological: AO x 3
Psychological: Calm
Lines: PICC
Objective Data
Lab Data
Lab Results
01/12/25 04:05
01/14/25 02:26
ESR 87 mm/hour (0-20) H 01/14/25 02:26
PT 24.8 Sec (11.4-14.6) H 01/14/25 02:26
INR 2.24 01/14/25 02:26
APTT 49.9 Sec (23.4-35.0) H 01/03/25 04:42
Estimated Creat Clear 54 ml/min 01/14/25 02:26
Lactic Acid 0.9 mmol/L (0.7-2.0) 12/28/24 03:11
Total Bilirubin 0.5 mg/dl (0.2-1.3) 12/28/24 17:33
AST 42 U/L (17-59) 12/28/24 17:33
ALT 14 U/L (0-50) 12/28/24 17:33
Alkaline Phosphatase 60 U/L (38-126) 12/28/24 17:33
C-Reactive Protein 12.90 mg/L (0.0-10.00) H 01/14/25 02:26
Most recent labs reviewed.
Micro Results:
12/27/24 17:14 Fungal Culture - Preliminary
Heart Culture in progress.
Positive cultures are reported as soon as detected.
Final report to follow in four to five weeks.
12/27/24 17:06 Fungal Culture - Preliminary
Heart Culture in progress.
Positive cultures are reported as soon as detected.
Final report to follow in four to five weeks.
12/30/24 11:06 Blood Culture - Final
Blood/Venous No Growth - Final Report
12/30/24 10:20 Blood Culture - Final
Blood/Venous No Growth - Final Report
12/27/24 17:06 Tissue Culture - Final
Heart Enterobacter cloacae
Gram Stain - Final
12/31/24 10:54 Respiratory Culture - Final
Sputum Elaine albicans
Gram Stain - Final
12/27/24 17:06 Anaerobic Culture - Final
Heart NO ANAEROBES ISOLATED
12/27/24 17:14 Anaerobic Culture - Final
Heart NO ANAEROBES ISOLATED
12/27/24 17:14 Tissue Culture - Final
Heart No Growth After 72 Hours
Gram Stain - Final
12/27/24 12:38 Blood Culture - Final
Blood/Venous No Growth - Final Report
12/27/24 11:47 Blood Culture - Final
Blood/Venous No Growth - Final Report
12/30/24 10:10 Urine Culture - Final
Urine NO GROWTH
12/27/24 15:00 Urine Culture - Final
Urine NO GROWTH
12/27/24 05:31 MRSA Screen - Final
Nose No Methicillin Resistant Staphylococcus aureus isolated.
Tissue Culture Final 01/03/25-0850
Enterobacter cloacae - Isolated from enrichment broth
only.
1. Enterobacter cloacae
M.I.C. RX
--------- ---
Amoxicillin/Potas. Clavulanate >16/8 R
Ampicillin >16 R
Ampicillin/Sulbactam >16/8 R
Aztreonam <=4 S
Cefazolin >16 R
Cefepime <=2 S
Ceftazidime >16 R
Ceftriaxone >2 R
Ertapenem <=0.5 S
Ciprofloxacin <=0.25 S
Gentamicin <=2 S
Meropenem <=1 S
Piperacillin/Tazobactam <=8 S
Tetracycline <=4 S
Tobramycin <=2 S
Trimethoprim/Sulfamethoxazole <=2/38 S .
12/18/2024
11:00 Blood culture ([facility])
Streptococcus mutans
Ampicillin <= 0.25 S
Cefotaxime <=0.12 S
Ceftriaxone <= 0.12 S
Erythromycin <= 0.12 S
Levofloxacin =1 S
Linezolid <= 2 S
Moxifloxacin =0.25 S
Penicillin G <= 0.06 S
Vancomycin =1 S
Imaging:
01/02/2025 MRI brain: There are foci of subarachnoid hemorrhage involving the anterior left frontal lobe, posterior left occipital lobe and right frontoparietal region. The subarachnoid blood products within the right frontoparietal region/central
sulcus are not definitely visualized on prior CT and likely new from prior examination. There are small foci of restricted diffusion within the left centrum semiovale and anterior left insular cortex which likely represent acute/subacute
infarctions. There is a 6 mm T2 heterogeneous lesion with associated blooming artifact in the subcortical inferior right frontal lobe which may represent a small cavernoma or possible chronic intraparenchymal hematoma.
12/29/2024 CT head without contrast: 'MULTIFOCAL ACUTE SUBARACHNOID HEMORRHAGE with a new small subarachnoid hemorrhage over the inferolateral margin of the right frontal lobe. Small acute subarachnoid hemorrhages in the sulci medial to the right
frontal lobe, anterior to the left frontal lobe, medial to the right parietal-occipital lobe, and posterior to the left parietal lobe which appear unchanged. Hemorrhagic septic emboli is a diagnostic consideration given the history of endocarditis.'
12/25/2024 MRI brain (performed at [facility]): Multiple cortical and subcortical foci of diminished signal intensity on susceptibility weighted sequences. The sequence suggest the presence of blood products. Concern raised for septic
emboli which can demonstrate ischemic changes resulting in restriction diffusion, as well as hemorrhagic damage to the brain. Multiple small embolic infarcts also in the differential. Contrast enhanced examination failed to demonstrate enhancing
lesions or venous filling defects or prominent venous structures thus leptomeningeal carcinomatosis or venous congestion is not consistent with this study. Linear appearing areas of non-FLAIR suppression and diminished signal on susceptibility
weighted sequences suggest associated possible subarachnoid hemorrhage within the bilateral occipital lobes. Please see full dictation for additional detail.
12/22/2024 ECHO (TTE): LV EF = 60%. Mildly dilated left atrium. Severe thickening of the anterior and posterior leaflets of the mitral valve, but without clear vegetations. Moderate sized (0.4 x 0.7 cm oscillating heterogeneous echodensity
attached to the noncoronary cusp. Aortic valve is thickened and calcified with mild to moderate eccentric aortic regurgitation.
[2025-01-14] MEDS: INVANZ 60 MG IV (09:33)
[2025-01-14 10:24] VITALS: BP 128/83
--- NOTE | 2025-01-14 10:48 | W.PN.HOSP.TC ---
Today's Communication/Plan
-
DC to SNF
Outpatient follow-up with cardiology, CT surgery
INR 2.24
Assessment / Plan
Assessment / Plan
Impression:
49-year-old male past medical history of depression, hypertension, insomnia, kidney stones who originally presented to [facility] on 12/17 for generalized weakness. stated that he has been declining for months and was fired from his job
2 months ago and since then has been increasingly depressed, with failure to thrive. He has had decreased p.o. intake, decreased urine output and constipation. He had 30 pounds of weight loss. He was also unsteady on his feet. He did not have
falls or dizziness or lightheadedness or vision changes or numbness or tingling or focal weakness. No fevers or chills. No chest pain or palpitations. No shortness of breath or cough. No nausea or vomiting.
Patient was found to be anemic with hemoglobin of 6.9, thrombocytopenia with platelets of 97. He was found to have acute renal failure with creatinine of 4.84. He was given 2 units of blood transfusion. He was found to have ewiiaapaayp valve aortic
endocarditis with strep possibly due to indolent dental infection as he had a cap Fall off approximately a month ago.
Seen by CT surgery and underwent to the operating room for aortic valve replacement status post explant and redo aortic valve placement, vegetation debridement, septal myomectomy, with postop bleeding and reexploration/venous bleeding and oozing
from the sternum, also developed subarachnoid hemorrhage and was eval by neurology and repeat brain imaging with stable hemorrhage. Patient without any neurological deficit and was restarted on Coumadin. Status post aggressive IV diuresis and now
maintained on p.o. diuretics. Blood pressure meds are being adjusted by cardiology. Remains on IV antibiotics with ertapenem. Currently ongoing disposition planning which remains complicated.
Assessment/plan:
#[place] aortic valve endocarditis with aortic insufficiency secondary to Streptococcus mutans with splenic infarct/septic emboli to brain
#Streptococcus mutans bacteremia
#Acute hypoxic respiratory failure. Resolved.
Patient had extensive hematologic workup which was notable for lupus anticoagulant of 44 (normal <40), possible restricted M spike on protein electrophoresis, procalcitonin of 0.65, IgM kappa monoclonal band present on serum immunofixation,
otaa-[id number]-nnxkimmb DNA titer 1.1 (normal <1.1), free kappa light chains of 154, free lambda chains of 125, PT of 15.8,
Negative labs include fibrinogen, ANCA negative, Dani viper venom screen negative, antibeta-2 glycoprotein IgG antibody and IgA antibody, glomerular basement membrane IgG antibody, anticardiolipin IgG antibody, anticardiolipin IgM antibody, C3,
C4, hepatitis B surface antigen, surface antibody, hep C antibody, antistreptolysin O antibody, malaria/Babesia smear,
[place] lambda light chain ratio 1.23,
Echo showed EF of 60 to 65% severe thickening of the anterior posterior leaflets of the mitral valve without clear vegetations, moderate-sized oscillating heterogeneous echodensity attached to the noncoronary cusp, aortic valve is thickened and
calcified, mild to moderate eccentric aortic regurgitation, mild to moderate mitral regurgitation, small pericardial effusion, small left pleural effusion
Transferred to [facility] for curative aortic valve replacement given septic emboli to the brain
Underwent to the operating room status post s/p AVR s/p explant and redo AVR , LVOT vegetation debridement, Septal myomectomy/vegectomy, MV chordae vegetation resection and debridement, c/b post op bleeding from CT and re-exploration/venous
bleeding and oozing from the sternum on 12/27/[address] Denney PER CT surgery.
IV antibiotics was transitioned to ertapenem. Goal is continue antibiotics through 02/11/2025
CT surgery plan is to continue aspirin and Coumadin.
Of note, patient was started on amiodarone postop for A-fib prophylaxis with amiodarone. Per CT surgery discontinue amiodarone on discharge.
#Stroke with hemorrhagic conversion likely secondary to septic emboli
Was initiated on Keppra however now discontinued
Reinitiate on anticoagulation. Patient currently AO x 3. Non-focal grossly intact.
#Chronic coagulopathy with Coumadin
# History of supratherapeutic INR
Coumadin dose increased per CT surgery
Trend INR daily
Cautious slow uptrend of INR recommended with history of hemorrhagic conversion
Per CT surgery INR goal is 2-3. Currently at 2.24.
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
On antibiotics
#Chronic HFpEF
Continue with ethacrynic acid 50 mg twice daily
Strict I's and O's. Daily weights.
Aldactone added. Continue with beta-ck, aspirin
Unable to do JUAN/ARB due to elevated creatinine
Cardiology following
#Primary hypertension
Continue with diuresis, Aldactone, carvedilol and hydralazine and norvasc
Monitor for hypotension
#Acute kidney injury on suspected CKD 3B possibly thromboembolic vs glomerulonephritis vs vasculitic
Continue with diuresis. Nephrology signed off.
#Anemia of chronic disease
#Acute blood loss anemia status post surgery
Status post 5 units of PRBC
monitor Hb
Transfuse for hemoglobin less than 7
#Acute postop thrombocytopenia
status post 2 units of platelet transfusion and 2 units of FFP
Continue to trend CBC
Tooth filling cap dislodgement
-outpatient follow up with dentist
Anxiety/depression
-continue xanax as needed, fluoxetine, mirtazepine
History of opiate abuse
Was on Suboxone.
Limited opioid.
Hallucinations overnight likely combination of multiple medications
Change in mental as needed.. Patient on a chronically.
DC Flexeril
Decrease pain meds
Off Subutex
CODE STATUS: Full code
DVT prophylaxis: Coumadin
PT recs SNF. CM aware. Await placement.
More than 30 minutes spent in discharge including
Final examination of the patient
Summarizing hospital stay
Instructions for continuing care to all relevant caregivers
Preparation of discharge records, prescriptions, and referral forms
Total time spent (in minutes): 55
Anticipated Discharge: Today
Subjective/Interval History
-
Date of Service: January 14, 2025
No overnight events
Objective Data
-
Labs:
Laboratory Results
01/14/25
02:26
PT 24.8 H
INR 2.24
Sodium 138
Potassium 4.6
Chloride 114 H
Carbon Dioxide 23
BUN 32 H
Creatinine 1.7 H
Glucose 100 H
Calcium 8.1 L
Vital Signs:
Vital Signs
Temp Pulse Resp BP Pulse Ox
97.7 F 71 16 128/83 97
01/14/25 10:25 01/14/25 10:24 01/14/25 10:25 01/14/25 10:24 01/14/25 10:25
I&O
01/13/25 01/14/25 01/15/25
06:59 06:59 06:59
Intake Total 1200 / 1200 240 / 240
Output Total 600 / 600 420 / 420
Balance 600 / 600 240 / 240 -420 / -420
Physical Exam
-
General: Well Developed, Well Nourished, No Apparent Distress and Comfortable
HEENT: Normocephalic, Atraumatic, Moist Mucous Membranes, No Ptosis and Nose Appears Normal
Respiratory: Clear to Auscultation and Non Labored Respirations
Cardiac: Regular Rhythm, S1/S2 and Other (Mid sternal scar noted)
Breast: Deferred by me
GI: Soft, Nontender, Nondistended and Normal Bowel Sounds
Genito-urinary: No Costovertebral Tender
Musculoskeletal: No Clubbing, No Cyanosis and No Edema
Skin: Warm
Neuro: Awake, Alert, Oriented, AO x 3 and No Motor Deficits
Psych: Calm
--- NOTE | 2025-01-14 11:22 | PTCARENOTE ---
Pt seen by Shahid Spivey and Jose R. Pt denies any discomfort. Report called to 'Loan' at [facility]. Pt transported via wheelchair van with all his belongings.
--- NOTE | 2025-01-14 11:27 | CM ---
CM following for DC planning needs.
Plan for DC to SNF today @ [facility] @ [place].
Bed available today. DC order noted.
Transport arranged via [facility] for 11AM PU.
I met w/ patient, spouse and family at bedside. All are aware and in agreement w/ transfer.
Plan- [facility] @ [place]
RN report- [phone]
Fax- [phone]
== END 2025-01-14 11:10 | DRG 219 ==
LOC: IVU 19:43
PROVIDERS: Anesthesiology; Clinical Nurse Specialist Acute Care; Internal Medicine; Nurse Practitioner; Physician Assistant; Physician Assistant Medical; Psychiatry & Neurology Neurology; ADMITTING PHYSICIAN Hospitalist; ATTENDING PHYSICIAN Hospitalist; CONSULT PHYSICIAN Dentist Oral and Maxillofacial Surgery; CONSULT PHYSICIAN Internal Medicine Critical Care Medicine; CONSULT PHYSICIAN Internal Medicine Infectious Disease; CONSULT PHYSICIAN Specialist; CONSULT PHYSICIAN Student in an Organized Health Care Education/Training Program; CONSULT PHYSICIAN Thoracic Surgery (Cardiothoracic Vascular Surgery); OTHER PHYSICIAN Psychiatry & Neurology Neurology; OTHER PHYSICIAN Psychiatry & Neurology Psychiatry
PROC: 02BM0ZZ Excision of Ventricular Septum, Open Approach (ICD-10-PCS; 2024-12-27)
PROC: 0W3C0ZZ Control Bleeding in Mediastinum, Open Approach (ICD-10-PCS; 2024-12-27)
PROC: 02RF0JZ Replacement of Aortic Valve with Synthetic Substitute, Open Approach (ICD-10-PCS; 2024-12-27)
PROC: 30233N1 Transfusion of Nonautologous Red Blood Cells into Peripheral Vein, Percutaneous Approach (ICD-10-PCS; 2024-12-27)
PROC: 30233R1 Transfusion of Nonautologous Platelets into Peripheral Vein, Percutaneous Approach (ICD-10-PCS; 2024-12-27)
PROC: 5A1221Z Performance of Cardiac Output, Continuous (ICD-10-PCS; 2024-12-27)
PROC: 02BG0ZZ Excision of Mitral Valve, Open Approach (ICD-10-PCS; 2024-12-27)
PROC: 30233K1 Transfusion of Nonautologous Frozen Plasma into Peripheral Vein, Percutaneous Approach (ICD-10-PCS; 2024-12-27)
PROC: B24BZZ4 Ultrasonography of Heart with Aorta, Transesophageal (ICD-10-PCS; 2024-12-27)
DX: I33.0 Acute and subacute infective endocarditis (principal); G92.8 Other toxic encephalopathy; I60.9 Nontraumatic subarachnoid hemorrhage, unspecified; J96.01 Acute respiratory failure with hypoxia; I63.49 Cerebral infarction due to embolism of other cerebral artery; I50.33 Acute on chronic diastolic (congestive) heart failure; D61.818 Other pancytopenia; I13.0 Hypertensive heart and chronic kidney disease with heart failure and stage 1 through stage 4 chronic kidney disease, or unspecified chronic kidney disease; R78.81 Bacteremia; D62 Acute posthemorrhagic anemia; N17.9 Acute kidney failure, unspecified; I76 Septic arterial embolism; I74.8 Embolism and thrombosis of other arteries; D68.9 Coagulation defect, unspecified; T82.897A Other specified complication of cardiac prosthetic devices, implants and grafts, initial encounter; R47.01 Aphasia; J98.11 Atelectasis; F11.20 Opioid dependence, uncomplicated; E87.1 Hypo-osmolality and hyponatremia; E87.20 Acidosis, unspecified; J91.8 Pleural effusion in other conditions classified elsewhere; I97.618 Postprocedural hemorrhage of a circulatory system organ or structure following other circulatory system procedure; D72.829 Elevated white blood cell count, unspecified; D69.59 Other secondary thrombocytopenia; E86.1 Hypovolemia; F32.9 Major depressive disorder, single episode, unspecified; F41.9 Anxiety disorder, unspecified; Y71.2 Prosthetic and other implants, materials and accessory cardiovascular devices associated with adverse incidents; N18.32 Chronic kidney disease, stage 3b; K04.7 Periapical abscess without sinus; G47.00 Insomnia, unspecified; R62.7 Adult failure to thrive; K59.00 Constipation, unspecified; I44.7 Left bundle-branch block, unspecified; R00.1 Bradycardia, unspecified; Y83.8 Other surgical procedures as the cause of abnormal reaction of the patient, or of later complication, without mention of misadventure at the time of the procedure; B95.4 Other streptococcus as the cause of diseases classified elsewhere; D73.5 Infarction of spleen; R63.4 Abnormal weight loss; I08.0 Rheumatic disorders of both mitral and aortic valves; J45.909 Unspecified asthma, uncomplicated; E11.22 Type 2 diabetes mellitus with diabetic chronic kidney disease; D63.1 Anemia in chronic kidney disease; Z88.2 Allergy status to sulfonamides; Q67.6 Pectus excavatum; Z87.442 Personal history of urinary calculi; Z56.0 Unemployment, unspecified
CPT/HCPCS: 0042T; 36600; 70355; 70450; 70496; 70498; 70551; 71045; 80048; 80053; 80061; 80306; 80307; 81003; 81015; 81099; 82248; 82330; 82565; 82805; 82810; 82947; 82962; 83036; 83605; 83735; 84100; 84132; 84302; 84443; 84520; 85014; 85018; 85025; 85027; 85049; 85347; 85384; 85576; 85610; 85652; 85730; 86140; 86160; 86850; 86900; 86901; 86920; 86922; 87040; 87070; 87075; 87077; 87086; 87102; 87176; 87186; 87205; 92507; 92523; 92526; 92610; 93005; 93312; 93320; 93325; 94002; 94003; 94640; 95816; 97110; 97116; 97163; 97167; 97530; 97535; C1713; J1335; P9016; P9058; P9059; P9073; Q9967

== ENCOUNTER 2025-01-17 21:35 | Inpatient (IN) | payer MEDICAID, SELFPAY ==
[2025-01-17] VITALS (8 sets, daily range): BP systolic 142–169; BP diastolic 87–99; BMI 25.1; BMI 23.8
--- NOTE | 2025-01-17 17:58 | ED.GENMED ---
History of Present Illness
General
Chief Complaint: Chest Problem
Source: patient, records and spouse
Time Seen by Provider: 01/17/25 17:39
History of Present Illness
History of Present Illness:
49-year-old male with past medical history of recent aortic valve replacement secondary to complications from bacterial endocarditis from a dental infection, acute renal failure, hypertension, [id number]-[id number] diabetes recently discharged from
this facility to [facility] presenting back to the emergency department via EMS for sudden onset of lower extremity edema, paresthesia to the bilateral feet, shortness of breath and exertional dyspnea with any attempted movement over the last 24
hours. Patient has been taking the medications that were prescribed to him as directed. Denies any fevers, chills, rigors, chest pain, palpitations, cough, abdominal pain, nausea or vomiting. Patient also stating that he has a sacral wound and
does not seem to be getting the care for this at [facility] that he feels he needs. Patient does not believe either the cardiothoracic surgery team or cardiology team were notified prior to his arrival to the ER today.
Past History
Past History
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
ED Past Surgical History: Urological
Social History
Tobacco: Non-smoker
Alcohol: None
Drug: Former user
Personal:
Living: with family
Review of Systems
Review of Systems
All Other Systems: ROS reviewed and negative except as documented in HPI and ROS
Phy Exam
Physical Exam
Physical Exam:
GENERAL: Alert , in no apparent distress, appears uncomfortable
HEAD: Normocephalic atraumatic
EYE: clear conjunctiva
NECK: Supple
ENT: o/p clr, mmm.
CARDIAC: Regular rate and rhythm, harsh systolic murmur at the right second intercostal space.
LUNGS: Diminished lung sounds bilateral bases, no acute respiratory distress, no wheezes/rales/rhonchi
ABDOMEN: Soft, without focal tenderness, no r/g, no cvat
NEUROLOGICAL: Alert and oriented
SKIN: Warm and dry, skin intact.
MUSCULOSKELETAL: Significant pedal edema, 1+ bilaterally, edema does extend into the mid calf bilaterally. Cap refill less than 2 seconds. Sensation intact and equal bilaterally
PSYCH: Normal and appropriate interaction.
Scores
Heart Failure Risk
Heart Failure Risk Score: Yes
History of Stroke or TIA: No
History of intubation for respiratory distress: No
Heart rate on ED arrival >/= 110: No
SaO2 <90% on arrival on room air: No
HR >/=110 during 3min walk test (or too ill to perform test): Yes
ECG has acute ischemic changes: No
Urea >/=12mmol/L (BUN 33.6mg/dL): No
Serum CO2>/=35mmol/L: No
Troponin I or T elevated to TX Level (0.4mg/dL): No
NT-proBNP >/=5,000ng/L (5,000pg/ml): Yes
HF Risk Score: 3
Admission Status: HIGH RISK 15.9% Consider SNF treatment or admission to hospital
Heart Score for Chest Pain Patients
STEMI patient?: Not applicable
Withdrawal Assessment of Alcohol
Withdrawal Assessment Completed?: Not applicable
Course
Orders/Labs/Results
Orders:
Orders
01/17/25 17:10
EKG [Electrocardiogram (*1)] Urgent
Reason for Study: Chest Pain
01/17/25 17:11
EKG- Treatment ONCE
01/17/25 17:44
Portable Chest Xray [CR Chest Portable - 1 View] Urgent
Comment:
Reason For Exam: CP
Reason Study Needs to be Portable: Patient Unstable
01/17/25 17:46
Complete Blood Count/With Diff Urgent
Comprehensive Metabolic Panel Urgent
NT-proBNP Urgent
Troponin I Urgent
01/17/25 17:52
CT Chest PE Study Urgent
Comment:
Reason For Exam: recent aortic valve replacement, SOB, edema
01/17/25 18:34
Echo 2D MMode Color/Doppler Urgent
Reason for Study: edema, SOB, recent aortic valve replacement
01/17/25 18:36
Protime/PTT Urgent
01/17/25 18:52
Furosemide [Lasix] 40 mg IV NOW STA
01/17/25 19:34
Cardiothoracic Surgery Consult Urgent
Consulting Provider: Erick Love
Was physician already notified: Yes
Abnormal Lab Results
01/17/25 01/17/25
17:46 18:36
RBC 2.67 L 10^6/uL
(4.70-6.10)
Hgb 7.9 L g/dL
(13.0-18.0)
Hct 23.4 L %
(39.0-52.0)
RDW 17.7 H %
(11.5-14.5)
Abs Immat Gran (auto) 0.1 H 10^3/uL
(0-0.05)
Absolute Monos (auto) 0.7 H 10^3/uL
(0.1-0.6)
Immature Gran % 1.3 H %
(0-0.5)
PT 24.8 H Sec
(11.4-14.6)
APTT 40.1 H Sec
(23.4-35.0)
Chloride 112 H mmol/L
(98-107)
BUN 23 H mg/dl
(9-20)
Creatinine 1.6 H mg/dL
(0.7-1.3)
Glucose 220 H mg/dl
(70-99)
AST 16 L U/L
(17-59)
Troponin I 0.083 H* ng/ml
Total Protein 5.7 L g/dl
(6.3-8.2)
Albumin 2.6 L g/dl
(3.5-5.0)
01/17/25 17:46
01/17/25 17:46
Vital Signs
Initial and Last Documented VS:
Initial Vital Signs
Temp Pulse Resp BP Pulse Ox
97.9 F 77 20 166/91 98
01/17/25 17:13 01/17/25 17:13 01/17/25 17:13 01/17/25 17:13 01/17/25 17:13
Last Documented Vital Signs
Temp Pulse Resp BP Pulse Ox
97.9 F 76 16 168/96 98
01/17/25 17:13 01/17/25 18:30 01/17/25 18:39 01/17/25 18:00 01/17/25 18:30
MDM/Problems Addressed
Differential Diagnosis Includes:
- Valvular dysfunction
- DVT/PE
- Venous insufficiency
- Myocarditis/pericarditis
- Pericardial effusion
- Pneumonia
MDM/Problems Addressed:
49-year-old male presenting to the emergency department for evaluation of sudden onset of edema, shortness of breath and exertional dyspnea over the last 24 hours. Currently being treated at [facility], not terribly happy with his care there. On
exam patient does have significant pedal edema, appears short of breath with minimal exertion however no tachycardia, tachypnea or hypoxia appreciated. Given recent surgery will discuss case with on-call CT surgery as I do suspect patient will need
a stat echocardiogram to further evaluate. CTA of the chest for PE rule out. I did obtain a portable chest x-ray to evaluate and there may be a small trace effusion at the left base. Patient currently
Chronic conditions affecting care: Other (Endocarditis/aortic valve repair)
*Radiology
Radiology exam reviewed: preliminary read by ED provider (Trace pleural effusion on the left)
*Pulse Oximetry
SaO2: 98
Oxygen Mode of Delivery: Room air
Patient hypoxic: no
*EKG
Interpreted by ED Provider?: Yes
Heart Rate: 76
Rate: normal
Rhythm: sinus
[place]: left axis deviation
Interval: first degree heart block
QRS Pattern: left bundle branch block
*Rehabilitation Assistant Interpretation
Rate: normal
Heart Rate: 76
Rhythm: sinus
*Critical Care Note
Total Time (30-74mins, 75-104mins- exclusive of procedures): Not Applicable
Data Reviewed
Review of Other/Old Records Reveals: Labs, Records and Discharge Summary
Source: patient and records
Patient Management
Discussion with other providers: Hospitalist and Lunch Counter Manager
Escalation/DeEscalation of care consider admission/obs:
Case discussed with both cardiology and cardiothoracic surgery. Patient has a large left pleural effusion. Echocardiogram shows hyperdynamic cardiac activity, no significant valvular dysfunction. They would like patient to be admitted to
hospitalist team, interventional radiology in consult for likely thoracentesis. Cardiology did request we give Lasix however cardiothoracic surgery wanted the Lasix held. Will defer Lasix at this time. I also did notify interventional radiology
due to patient being on Coumadin with an INR of 2.2. They are okay doing thoracentesis as long as INR is less than 3. Hospitalist team notified and accepts.
ED Attending Note
-
Portions of this chart may have been created with voice recognition software.� Occasional wrong word or��sound alike� substitutions may have occurred due to the inherent limitations of voice recognition software.
Discharge Plan
Departure
Patient Disposition: Admit
Date of Disposition: 01/17/25
Time of Disposition: 19:37
Presentation/result/management discussed w/ accepting MD/DO: Hospitalist
Discharge Problem:
Pleural effusion
Prescriptions:
No Action
fluoxetine 40 mg Capsule
40 mg PO DAILY
amlodipine 10 mg Tablet
10 mg PO DAILY Qty: 0 0RF
Rx Instructions:
hold for SBP<110 and HR<60
Ertapenem [Invanz] 1000 MG
0.9% Sodium Chloride [Nss] 50 ML
120 mls/hr IV Q24H
Reason for use: strep mutans endocarditis (end date 02/14/25)
Ordered By: Erica Rico CRNP
Last Taken: 01/17/25
Patient Comments:
01/17/2025, start date: 01/15/2025; end date: 02/14/2025.
pantoprazole 40 mg Tablet,Delayed Release (Dr/Ec)
40 mg PO DAILY Qty: 0 0RF
spironolactone 25 mg Tablet
25 mg PO DAILY Qty: 0 0RF
Rx Instructions:
Hold for sbp<110
acetaminophen [Tylenol] 325 mg Tablet
650 mg PO Q6HPRN MDD 3000 mg PRN (Reason: mild pain/temp>100.4F)
magnesium hydroxide [Milk of Magnesia] 400 mg/5 mL Suspension
30 ml PO [id number] PRN (Reason: if no BM in 3 days)
bisacodyl 10 mg Suppository
10 mg IN DAILY PRN (Reason: if MOM ineffective)
Fleet Enema 19-7 gram/118 mL Enema
118 ml IN DAILYPRN PRN (Reason: if supp ineffective)
gabapentin 300 mg Capsule
300 mg PO BID
aspirin 81 mg Capsule
81 mg PO DAILY
carvedilol 25 mg tablet
25 mg PO DAILY
Rx Instructions:
hold for SBP<110 and HR<60
ethacrynic acid 25 mg tablet
50 mg PO BID
alprazolam 0.5 mg tablet
0.5 mg PO DAILYPRN PRN (Reason: Mental Health/Anxiety)
hydralazine 50 mg tablet
50 mg PO Q8H
Rx Instructions:
Hold for SBP<110 and HR<60
warfarin 1 mg tablet
1 mg PO QPM
zolpidem [Ambien] 10 mg tablet
10 mg PO HS
guaifenesin 600 mg tablet extended release 12hr
600 mg PO DAILY
Referrals:
Luis Turner DO [Family Provider, Family Practice]
Interventions
Interventions:
*Risk Screen - Suicide Last Done: 01/17/25 18:23
*General Assessment Last Done: 01/17/25 18:23
*Neglect/Abuse Screening Last Done: 01/17/25 18:23
*ED- Fall Risk Assessment Last Done: 01/17/25 18:23
ED- Cardiac Assessment Last Done: 01/17/25 17:59
ED- Pulmonary Assessment Last Done: 01/17/25 17:59
Discharge Date and Time
Print Language: SAMMARINESE
[2025-01-17 18:13] LABS: Hematocrit 23.4 % (39.0-52.0); Hemoglobin 7.9 g/dL (13.0-18.0); Mean Corp Hgb Conc. 33.8 g/dL (33.0-37.0); Mean Corpuscular Volume 87.6 fL (80.0-94.0); Nucleated Red Blood Cells % 0 % (-); Platelet Count 177 10^3/uL (130-400); Red Cell Dist. Width 17.7 % (11.5-14.5)
[2025-01-17 18:25] LABS: ALT (SGPT) 11 U/L (0-50); AST (SGOT) 16 U/L (17-59); Albumin 2.6 g/dl (3.5-5.0); Alkaline Phosphatase 102 U/L (38-126); Blood Urea Nitrogen 23 mg/dl (9-20); Calcium 8.5 mg/dl (8.4-10.2); Carbon Dioxide 22 mmol/L (22-30); Chloride 112 mmol/L (98-107); Estimated Creatinine Clearance 57 ml/min; Glucose 220 mg/dl (70-99); Potassium 4.0 mmol/L (3.5-5.1); Sodium 139 mmol/L (135-145); Total Protein 5.7 g/dl (6.3-8.2); eGFR 52.17
[2025-01-17 18:46] LABS: Troponin I 0.083 ng/ml
[2025-01-17 18:55] LABS: INR 2.24; PT 24.8 Sec (11.4-14.6)
[2025-01-17 18:56] LABS: APTT 40.1 Sec (23.4-35.0)
--- NOTE | 2025-01-17 21:07 | HPS.HSE ---
Family Physician
-
Family Physician: Luis Turner
Chief Complaint
-
exertional dyspnea with any attempted movement
History of Present Illness
HPI
49M T2DM, HTN, with prolonged complex admission ( 12/26/24 - 01/14/25)
Recent admission started wiht no previous cardiac history who presents with unintentional weight loss since October found to have aortic valve endocarditis from dental infection complicated by septic emboli to the brain and spleen, s/p AoV
replacement and extensive debridement with Dr. Denney on 12/27/24. Course further complicated by subarachnoid hemorrhage, CORNELIO retured to ER:
- via EMS for sudden onset Claudia edema, paresthesia to the bilateral feet
- exertional dyspnea with any attempted movement over the last 24 hours.
- reports complinace with medications
Medical History
Past Medical History
Past Medical History: Reports CHF (chr HFpEF ), HTN, NIDDM, Renal Failure and Other (depression, hypertension, insomnia, kidney stones)
Additional Past Medical History:
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
severe anemia
new LBBB/IVCD,
Past Surgical History: Reports Cardiac (Mechanical aortic valve replacement:) and Other (JJ stent )
Social History
Tobacco: Non-smoker
Alcohol: None
Drug: None
Family History
Family History: Not pertinent
Allergies / Home Medications
Allergies reflects when Allergies were last updated in [place] [place].
Home Medications with original date entered in [place] [place]
Allergy/Medication List:
Home Medications
acetaminophen 325 mg tablet 650 mg PO Q6H PRN anemia 12/26/24
amlodipine 5 mg tablet 5 mg PO BID 12/26/24
ascorbic acid (vitamin C) 500 mg PO BID 12/26/24
ceftriaxone 2 gram intravenous solution 2 g IV DAILY 12/26/24
ferrous gluconate 324 mg (38 mg iron) tablet 324 mg PO DAILY 12/26/24
Review of Systems
-
Constitutional: Reports No Symptoms
EENT: Reports No Symptoms
Respiratory: Reports See HPI
Cardiac: Reports No Symptoms
Abdomen/GI: Reports No Symptoms
: Reports No Symptoms
Musculoskeletal: Reports No Symptoms
Skin: Reports No Symptoms
Neurological: Reports No Symptoms
Endocrine: Reports No Symptoms
Hematologic/Lymphatic: Reports No Symptoms
Psych: Reports No Symptoms
Physical Exam
Vital Signs
Vital Signs
Temp Pulse Resp BP Pulse Ox
97.9 F 78 20 158/89 97
01/17/25 17:13 01/17/25 20:30 01/17/25 20:30 01/17/25 20:30 01/17/25 20:30
Physical Exam
General: Well Developed, Well Nourished and No Apparent Distress
HEENT: NormoCephalic, Moist mucous membranes and Atraumatic
Respiratory: Clear
Cardiac: S1/S2 and Regular Rhythm; No Murmur or Rub
GI: Soft, Non Tender, Non Distended and Normal Bowel Sounds; No Organomegaly
Rectal: Deferred by Provider
Musculoskeletal: Other (Significant pedal edema, 1+ bilaterally, edema does extend into the mid calf bilaterally. )
Skin: No Rash
Neuro: AO x 3 and Nonfocal/grossly intact
Psych: Calm
Laboratory Results
-
01/17/25 17:46
01/17/25 17:46
Laboratory Results
PT 24.8 Sec (11.4-14.6) H 01/17/25 18:36
INR 2.24 01/17/25 18:36
APTT 40.1 Sec (23.4-35.0) H 01/17/25 18:36
Total Bilirubin 0.4 mg/dl (0.2-1.3) 01/17/25 17:46
AST 16 U/L (17-59) L 01/17/25 17:46
ALT 11 U/L (0-50) 01/17/25 17:46
Alkaline Phosphatase 102 U/L (38-126) 01/17/25 17:46
Troponin I 0.083 ng/ml H* 01/17/25 17:46
Data Reviewed
-
Diagnostic Radiology: Report Reviewed by me
CT Scan: Report Reviewed by me
Medical Tests (Nuc Med, Echo, EKG etc): Report Reviewed by me
Lab Data: Labs Reviewed by me
Old Records: Reviewed
Impression/Plan
-
Laboratory Tests
01/12/25 01/14/25 01/17/25
04:05 02:26 17:46
Hgb 7.4 L 7.9 L
INR 2.24
Carbon Dioxide 23 22
BUN 32 H 23 H
Creatinine 1.7 H 1.6 H
eGFR 48.51 52.17
Troponin I 0.083 H*
Albumin 2.6 L
CXR
- Right PICC line is present with its tip in good position over the inferior aspect of the SVC.
- Sternal wires and plates are present and appear intact and unchanged. Prosthetic aortic valve is noted.
- There is confluent parenchymal opacity within the left lower lung with loss of definition of the left hemidiaphragm, stable from most recent radiograph, and most likely atelectasis. Underlying pneumonia difficult to completely exclude
radiographically.
- Mild blunting of the left lateral costophrenic angle suggesting a small left pleural effusion, also stable.
- There has been interval improvement in parenchymal opacity previously seen in the right perihilar region and the right lower lung, suggesting improvement in atelectasis and/or pneumonia.
- No convincing evidence for pulmonary edema pattern.
Stable appearance of the cardiomediastinal silhouette.
Mild dextroconvex scoliosis centered in the mid to lower thoracic spine.
CT Chest PE Study
- negative for pulmonary embolism.
- moderate bilateral pleural effusions.
- Near-complete atelectasis of the left lower lobe.
Small focal area of atelectasis involving the posterior lingula.
- Mild atelectasis involving the posterior right lung.
- Subtle band-shaped focus of decreased density involving the superior spleen, suggesting a focal area of splenic infarction.
- There is a small fluid collection posterior to the mid to inferior sternum, which is likely postsurgical seroma.
No evidence of a thickened enhancing wall to suggest mediastinal abscess.
- Small pericardial effusion.
01/17/25 Urgent TTE
- LVEF 75 %
- Wall motion is consistent with postoperative state. No specific WMAL
- Normal right ventricular size and function.
-Thickened mitral valve leaflets which appear to be open normally, but mildly elevated mean gradient of 5 mmHg.
Systolic anterior motion (RHONDA) of the anterior leaflet of the mitral valve with mild mitral regurgitation.
- Well-seated 23 mm On-X mechanical aortic valve replacement; peak peak/mean gradients across the valve are 29/17 mmHg. - Trace aortic regurgitation.
-Mild to moderate tricuspid regurgitation.
- Estimated pulmonary artery pressure of 45-50 mmHg.
- Small pericardial effusion without evidence of hemodynamic compromise.
-Large pleural effusion present.
Last hospitalist admission: 12/26/24 - 01/14/25
ASSESSMENT & PLAN
Pending Rx reconciliation
Class III exertila dyspnea suspect multifatorial with following issues
Presumed symtomatic large pleural effusion with moderate bilateral pleural effusions.
- Near-complete atelectasis of the left lower lobe.
- Chronic HFPEF
- ACDz with severe anemic Hgb at 7s - stable Hgb at baseline HJgb hi 7s
- Hold off Lasix per CTS
ER Consulted; CTS, CBC card and IR
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
- Now s/p complex open heart surgery (12/27/2024) with mechanical AVR, debridement LVOT/MV structures
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
- Enterobacter cloacae also isolated from valve tissue (from enrichment broth only)
- cont IV ertapenem. Goal is continue antibiotics through 02/11/2025
- on amiodarone postop for A-fib prophylaxis with amiodarone.
- Per CT surgery discontinue amiodarone on discharge on 01/14/25
Mechanical aortic valve replacement:
- sub Rxtic INR @ 2.2 at Goal INR 2- 3
- cont BEARING PRESS MACHINE OPERATOR Warfarin 1 mg qpm
- on ASA 81mg
Benign Hypertension
- on BEARING PRESS MACHINE OPERATOR Amlodipine 10 mg
- on BEARING PRESS MACHINE OPERATOR coreg 25mg bid
- on hydralazine 50mg tid (lowered for hypotensive episode)
- Avoiding JUAN/ARB with recovering CORNELIO
Chronic HFPEF
- B/L LE edema
- BEARING PRESS MACHINE OPERATOR BB and ASA
- BEARING PRESS MACHINE OPERATOR ethacrynic acid per nephrology
- BEARING PRESS MACHINE OPERATOR aldactone
- Unable to do JUAN/ARB due to elevated creatinine
- Daily weights.
Post op new LBBB/IVCD, follow telemetry:
-stable in SR
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
How[place] CKD3a may be new baseline
- Known to nephrology
Primary hypertension
- on diuresis, Aldactone, carvedilol and hydralazine and norvasc
Anemia of chronic disease - stable Hgb around 7
Acute blood loss anemia status post surgery ( HX Status post 5 units of PRBC on last admission)
Recovered postop thrombocytopenia ( HX status post 2 units of platelet transfusion and 2 units of FFP)
- trend CBC
- Blood Tx if Hgb less than 7
Tooth filling cap dislodgement
-outpatient follow up with dentist
Anxiety/depression
- continue Xanax as needed, fluoxetine, mirtazepine
History of opiate abuse
Was on Suboxone.
Limited opioid.
DVT Px: on Chr warfarin
Full code
IMU
--- NOTE | 2025-01-17 21:32 | CON.CAR ---
Consultation
Consultation Request
Date/Time Consultation Requested: 01/17/2025
Date/Time Consultation Performed: 01/17/2025
Requesting Provider: Dr. Marrero
Performing Provider: Dr. Kwon
Reason for Consultation: SOB
Medical History
-
Chief Complaint: SOB
History of Present Illness:
49-year-old man with no previous cardiac history who presents with unintentional weight loss since October found to have aortic valve endocarditis complicated by septic emboli to the brain and spleen, s/p AoV replacement and extensive debridement with
Dr. Denney on 12/27/24. Course complicated by subarachnoid hemorrhage. Patient was discharged 4 days ago and now presents with progressive lower extremity swelling and dyspnea.
Outpatient Chief Load Dispatcher: [facility]
Past Medical History
Past Medical History: CVA, HTN, Hypercholesterolemia and Valvular Disease (Endocarditis status-post mechanical AVR)
Past Surgical History: Cardiac (Mechanical AVR 12/27/2024)
Social History
Tobacco: Non-Smoker
Alcohol: None
Drug: Former User
Personal:
Family History
Family History: Reviewed & Not Pertinent
Allergies / Home Medications
Allergy/AdvReac Type Severity Reaction Status Date / Time
Sulfa (Sulfonamide Allergy Anaphylaxis Verified 01/17/25 17:21
Antibiotics)
sulfite Allergy Anaphylaxis Verified 01/17/25 17:21
�Medication �Instructions �Recorded �Confirmed �Type
fluoxetine 40 mg capsule 40 mg PO DAILY Mental 12/26/24 01/17/25 History
Health/Anxiety
Ertapenem [Invanz] 1,000 mg 120 mls/hr IV Q24H strep mutans 01/08/25 01/17/25 Rx
endocarditis (end date 02/14/25)
amlodipine 10 mg tablet 10 mg PO DAILY Blood pressure #0 01/08/25 01/17/25 Rx
tabs
pantoprazole 40 mg tablet,delayed 40 mg PO DAILY GI prophylaxis on 01/08/25 01/17/25 Rx
release Coumadin #0 tabs
spironolactone 25 mg tablet 25 mg PO DAILY Heart Failure #0 01/13/25 01/17/25 Rx
tabs
acetaminophen 325 mg tablet 650 mg PO Q6HPRN PRN mild 01/17/25 01/17/25 History
(Tylenol) pain/temp>100.4F
alprazolam 0.5 mg tablet 0.5 mg PO DAILYPRN PRN Mental 01/17/25 01/17/25 History
Health/Anxiety
aspirin 81 mg capsule 81 mg PO DAILY 01/17/25 01/17/25 History
bisacodyl 10 mg rectal suppository 10 mg CA DAILY PRN if MOM 01/17/25 01/17/25 History
ineffective
carvedilol 25 mg tablet 25 mg PO DAILY Blood pressure 01/17/25 01/17/25 History
ethacrynic acid 25 mg tablet 50 mg PO BID Fluid 01/17/25 01/17/25 History
retention/Swelling and sulfa
allergy
gabapentin 300 mg capsule 300 mg PO BID 01/17/25 01/17/25 History
guaifenesin 600 mg tablet, 600 mg PO DAILY Cough 01/17/25 01/17/25 History
extended release 12 hr
hydralazine 50 mg tablet 50 mg PO Q8H Blood pressure 01/17/25 01/17/25 History
magnesium hydroxide 400 mg/5 mL 30 ml PO [id number] PRN if no BM in 3 01/17/25 01/17/25 History
oral suspension (Milk of Magnesia) days
sodium phosphates 19 gram-7 118 ml CA DAILYPRN PRN if supp 01/17/25 01/17/25 History
gram/118 mL enema (Fleet Enema) ineffective
warfarin 1 mg tablet 1 mg PO QPM mechanical aortic valve 01/17/25 01/17/25 History
zolpidem 10 mg tablet (Ambien) 10 mg PO HS insomnia 01/17/25 01/17/25 History
Review of Systems
-
History Source: Patient
All other systems: Negative unless noted
Cardiac: Other (Edema)
Physical Exam
Vital Signs
Temp Pulse Resp BP Pulse Ox
97.9 F 78 20 158/89 97
01/17/25 17:13 01/17/25 20:30 01/17/25 20:30 01/17/25 20:30 01/17/25 20:30
Lab Results
01/17/25 17:46
01/17/25 17:46
Troponin I 0.083 ng/ml H* 01/17/25 17:46
Vjq-N-Jsdbhfgrduh Pept 9030 pg/ml 01/17/25 17:46
Physical Exam
General: No Apparent Distress and Comfortable
HEENT: Anicteric
Respiratory: Other (Decreased bilateral breath sounds at bases)
Cardiac: S1/S2 (Mechanical S1-S2), Regular Rhythm, Murmur (Soft 2/6), Rub (Mild friction rub) and Peripheral Edema (2+)
Breast: N/A
GI: Soft and Non Tender
Rectal: Deferred by Provider
Musculoskeletal: Edema (2+)
Skin: Warm and Dry
Neuro: AO x 3
Psych: Calm
Impression / Plan
-
49-year-old man with no previous cardiac history who presents with unintentional weight loss since October found to have aortic valve endocarditis complicated by septic emboli to the brain and spleen, s/p AoV replacement and extensive debridement with
Dr. Denney on 12/27/24. Course complicated by subarachnoid hemorrhage. Patient was discharged 4 days ago and now presents with progressive lower extremity swelling and dyspnea.
Lower extremity edema/dyspnea/chronic HFpEF:
- Stat echocardiogram revealed hyperdynamic LVEF (greater than 75%), small pericardial effusion, normal-functioning well-seated mechanical aortic valve (mean gradient 17 mmHg); large pleural effusion.
- Recommend thoracentesis.
- Gentle diuresis with IV Lasix 40 mg now/daily.
- On ethacrynic acid and Aldactone.
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
- Complicated by CVA with hemorrhagic conversion, CORNELIO, & splenic infarct
- Now s/p complex open heart surgery (12/27/2024) with mechanical AVR, debridement LVOT/MV structures
- Appears to be stable on echocardiogram.
Hypertension
- Blood pressure stable; continue current medications.
Post op new LBBB/IVCD:
- Stable.
History of opioid abuse, off Subutex, psychiatry has signed off.
Data Reviewed
-
EKG: Tracing Personally Visualized and interpreted (Sinus rhythm at 76 bpm with first-degree AV block, left axis deviation, and LBBB.)
Medical Tests (Nuc Med, Echo etc): Image Personally Visualized and interpreted (LVEF (greater than 75%), small pericardial effusion, normal-functioning well-seated mechanical aortic valve (mean gradient 17 mmHg); large pleural effusion.)
Labs: Labs Reviewed by me, Discussed with Physician (ER Attending, CT Surgery Attending), Discussed with Nurse, Discussed with Patient and Discussed with Family ( at bedside)
Old Records: Reviewed (Recent hospitalization)
[2025-01-17] MEDS: AMBIEN 10 MG PO (23:08)
[2025-01-17] MEDS: APRESOLINE 50 MG PO (23:08)
[2025-01-17] MEDS: INVANZ 60 MG IV (23:09)
[2025-01-17 23:43] LABS: LDH 262 U/L (120-246)
--- NOTE | 2025-01-17 23:51 | PTCARENOTE ---
2229: Patient arrived from ER into room 3346. Oriented to room and use of call quesada. Patient recently discharged from to [facility]. Patient with stage 2 to sacrum; cleansed, foam dressing applied. Repositioning with pillow; encouraged pt to
reposition self as much as possible to prevent skin breakdown. pt agreed. Sternal incision dry/intact, scabbed, UVALDO, no drainage. Using sternal pillow for support. PICC line dressing intact, +blood return. CHG done. Telemetry applied; NSR w/ BBB.
Patient reports lower extremity numbness and weakness. Able to wiggle toes and move legs slightly, +2-3 edema R>L; elevated on pillow. Patient on room air, Sp02 mid 90s. MORALEZ when turning in bed. Reports 10/10 pain to sternum when turning and 5/10
pain to bilat LE when turning. Pain is tolerable at rest 4/10. Swallowing pills w/o issues. Does not want a dietary consult. updated and able to speak with patient. Pt thankful for care. Admission questions complete.
Plan to go to IR for thoracentesis tomorrow.
[2025-01-18] VITALS (14 sets, daily range): BP systolic 116–176; BP diastolic 69–102; BMI 23.6
[2025-01-18 04:04] LABS: Hematocrit 23.8 % (39.0-52.0); Hemoglobin 8.0 g/dL (13.0-18.0); Mean Corp Hgb Conc. 33.6 g/dL (33.0-37.0); Mean Corpuscular Volume 87.8 fL (80.0-94.0); Platelet Count 192 10^3/uL (130-400); Red Cell Dist. Width 17.2 % (11.5-14.5)
[2025-01-18 04:14] LABS: INR 2.24; PT 24.9 Sec (11.4-14.6)
[2025-01-18 04:25] LABS: ALT (SGPT) < 10 U/L (0-50); AST (SGOT) 17 U/L (17-59); Albumin 2.7 g/dl (3.5-5.0); Alkaline Phosphatase 110 U/L (38-126); Blood Urea Nitrogen 22 mg/dl (9-20); Calcium 8.4 mg/dl (8.4-10.2); Carbon Dioxide 22 mmol/L (22-30); Chloride 114 mmol/L (98-107); Estimated Creatinine Clearance 65 ml/min; Glucose 98 mg/dl (70-99); Potassium 3.9 mmol/L (3.5-5.1); Sodium 140 mmol/L (135-145); Total Protein 5.8 g/dl (6.3-8.2); eGFR > 60.00
[2025-01-18] MEDS: EDECRIN 50 MG PO ×2 (07:58→20:31)
[2025-01-18] MEDS: PROTONIX 40 MG PO (07:58)
[2025-01-18] MEDS: NEURONTIN 300 MG PO ×2 (07:58→20:30)
[2025-01-18] MEDS: PROZAC 40 MG PO (07:58)
[2025-01-18] MEDS: NORVASC 10 MG PO (07:58)
[2025-01-18] MEDS: COREG 25 MG PO ×2 (07:59→20:30)
[2025-01-18] MEDS: ALDACTONE 25 MG PO (07:59)
[2025-01-18] MEDS: ASPIR LOW (ENTERIC COATED) 81 MG PO (07:59)
[2025-01-18] MEDS: APRESOLINE 50 MG PO ×3 (07:59→23:31)
--- NOTE | 2025-01-18 08:22 | CONSULT.CT ---
Consultation
-
Date/Time Consultation Performed: 01/18/25 @ 0822
Performing Provider: Robles Benjamin PA-C
Reason for Consultation: Decompensated HFpEF, recent aortic valve replacement
Patient History
History of Present Illness
Patient is a 49-year-old male who is well-known to us. He recently underwent mechanical aortic valve replacement with a 23 mm On-X mechanical valve, septal myectomy, debridement of mitral chordae by Dr. Kranthi Denney on 12/27/2024. His
postoperative course was complicated by subarachnoid hemorrhage and was somewhat protracted as a result of disposition issues given his lack of medical insurance. Ultimately after being refused acute rehab he was discharged to a residential
facility. Unfortunately he comes back to us today in decompensated heart failure. He has significant lower extremity edema as well as bilateral pleural effusions. He is dyspneic, fatigued, lightheaded, and feels ill.
Transthoracic echocardiogram on admission shows a well-seated aortic valve prosthesis without evidence of paravalvular leak. Mean gradients are slightly elevated at 17 mmHg in the setting of a hyperdynamic left ventricle (estimated LVEF 75%).
There was normal RV function. Given these findings and his recent surgery we are asked to provide input regarding his care.
Currently the patient is resting comfortably and without complaints. He has significant lower extremity edema. He is on room air and alert and oriented.
Past Medical History
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
moderate AI
moderate MR with RHONDA
septic emboli to the brain, spleen
Postop oliguric CORNELIO on probable CKD IIIb
Hx Renal calculi
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
hx anxiety/depression
HTN
Acute postop SAH involving frontal lobe, right parietal occipital lobe and left parietal lobe
deconditioning
Past Surgical History
Aortic valve replacement (23 mm On-X mechanical valve), septal myectomy, debridement of mitral chordae, Dr. Denney, 12/27/2024
Lithotripsy
Family History
Family Medical History: Other (Noncontributory)
Social History
Alcohol: None
Drug: Former User and Other (History of substance abuse previously treated with Suboxone now off)
Tobacco: Other (Occasional cigar)
Allergies
Allergy/AdvReac Type Severity Reaction Status Date / Time
Sulfa (Sulfonamide Allergy Anaphylaxis Verified 01/17/25 17:21
Antibiotics)
sulfite Allergy Anaphylaxis Verified 01/17/25 17:21
Home Medications
�Medication �Instructions �Recorded �Confirmed �Type
fluoxetine 40 mg capsule 40 mg PO DAILY Mental 12/26/24 01/17/25 History
Health/Anxiety
Ertapenem [Invanz] 1,000 mg 120 mls/hr IV Q24H strep mutans 01/08/25 01/17/25 Rx
endocarditis (end date 02/14/25)
amlodipine 10 mg tablet 10 mg PO DAILY Blood pressure #0 01/08/25 01/17/25 Rx
tabs
pantoprazole 40 mg tablet,delayed 40 mg PO DAILY GI prophylaxis on 01/08/25 01/17/25 Rx
release Coumadin #0 tabs
spironolactone 25 mg tablet 25 mg PO DAILY Heart Failure #0 01/13/25 01/17/25 Rx
tabs
acetaminophen 325 mg tablet 650 mg PO Q6HPRN PRN mild 01/17/25 01/17/25 History
(Tylenol) pain/temp>100.4F
alprazolam 0.5 mg tablet 0.5 mg PO DAILYPRN PRN Mental 01/17/25 01/17/25 History
Health/Anxiety
aspirin 81 mg capsule 81 mg PO DAILY 01/17/25 01/17/25 History
bisacodyl 10 mg rectal suppository 10 mg OR DAILY PRN if MOM 01/17/25 01/17/25 History
ineffective
carvedilol 25 mg tablet 25 mg PO DAILY Blood pressure 01/17/25 01/17/25 History
ethacrynic acid 25 mg tablet 50 mg PO BID Fluid 01/17/25 01/17/25 History
retention/Swelling and sulfa
allergy
gabapentin 300 mg capsule 300 mg PO BID 01/17/25 01/17/25 History
guaifenesin 600 mg tablet, 600 mg PO DAILY Cough 01/17/25 01/17/25 History
extended release 12 hr
hydralazine 50 mg tablet 50 mg PO Q8H Blood pressure 01/17/25 01/17/25 History
magnesium hydroxide 400 mg/5 mL 30 ml PO [id number] PRN if no BM in 3 01/17/25 01/17/25 History
oral suspension (Milk of Magnesia) days
sodium phosphates 19 gram-7 118 ml OR DAILYPRN PRN if supp 01/17/25 01/17/25 History
gram/118 mL enema (Fleet Enema) ineffective
warfarin 1 mg tablet 1 mg PO QPM mechanical aortic valve 01/17/25 01/17/25 History
zolpidem 10 mg tablet (Ambien) 10 mg PO HS insomnia 01/17/25 01/17/25 History
Review of Systems
-
History Source: Patient
General: Reports Fatigue
HEENT: Reports No Symptoms
Respiratory: Reports SOB and MORALEZ
Cardiac: Reports Edema
Abdomen/GI: Reports No Symptoms
: Reports No Symptoms
Musculoskeletal: Reports No Symptoms
Skin: Reports No Symptoms
Neurological: Reports No Symptoms
Vascular: Reports No Symptoms
Physical Exam
Vital Signs
Temp 98.3 F 01/18/25 07:53
Temp route: Oral 01/18/25 07:53
Pulse 83 01/18/25 07:58
Rhythm: Normal sinus rhythm 01/17/25 22:30
With- Bundle Branch Block Confi, First Degree Heart Block 01/17/25 22:30
Resp Rate 18 01/18/25 06:01
Blood pressure 176/98 01/18/25 07:58
MAP (cuff-Michelle Monitor) 117 01/18/25 06:00
SaO2 96 01/18/25 06:01
Oxygen Mode of Delivery Room air 01/18/25 00:47
Can the patient verbally communicate their pain? Yes 01/17/25 22:36
Pain scale ratin 01/17/25 22:36
Actual Weight 74.707 kg 01/18/25 03:38
Body Mass Index (BMI) 23.6 01/18/25 03:38
Labs
01/18/25 03:35
01/18/25 03:35
PT 24.9 Sec (11.4-14.6) H 01/18/25 03:35
APTT 40.1 Sec (23.4-35.0) H 01/17/25 18:36
Troponin I 0.083 ng/ml H* 01/17/25 17:46
Veq-L-Xqfcsptarbs Pept 9030 pg/ml 01/17/25 17:46
Exam
General: Well Developed, Well Nourished and No Apparent Distress
HEENT: Normocephalic and Anicteric
Respiratory: Other (Diminished bilaterally)
Cardiac: S1/S2 and Regular Rhythm
GI: Soft, Non Tender and Non Distended
Rectal: Deferred by Provider
Skin: Warm and Dry
Neuro: Awake, Alert and Oriented
Extremities: Lower Level Edema (2-3+ pitting edema BLE)
Psych: Calm
Assessment / Plan
-
#S/P Aortic Valve Replacement (On-X Mechanical AVR)
The valve is well-seated with no evidence of paravalvular leak on transthoracic echocardiogram. Noted again, mean gradient of 17 mmHg in the setting of hyperdynamic LV. The patient does have prior history of RHONDA physiology during his recent
hospital stay. May benefit from beta-blockade as tolerated to allow for LV filling especially in the setting of hyperdynamic left ventricle. Difficult problem given the patient's known heart failure with preserved ejection fraction. Cardiology is
following and managing. Sternotomy is healing well and he appears to be doing well neurologically in the setting of his recent hemorrhagic strokes. Recommend continued anticoagulation. INR goal is 2-3 for the first 3 months following surgery and
then 1.5-2 thereafter given that this is an On-X valve.
We will follow the patient peripherally while here should any surgical issues arise. Recommend management of his heart failure by cardiology who is on board and input is greatly appreciated. Remainder of medical management per primary team.
I discussed the above assessment and plan with the attending surgeon Dr. Erick Love who is in agreement
Data Reviewed
-
EKG: Report Reviewed by me
Echo: Report Reviewed by me
Radiology: Image Personally Visualized and interpreted and Report Reviewed by me
Labs: Labs Reviewed by me
Old Records: Reviewed
Total Time Spent with Patient (in minutes): 50
--- NOTE | 2025-01-18 08:44 | PTCARENOTE ---
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 Patient resting comfortably in bed. AAO, VSS. No events noted overnight. No complaints of pain. Will try to get OOB to chair. Currently on Room Air. Patient scheduled for thoracentesis, most likely on
Friday 01/19. No other testing scheduled at this time. Call quesada in reach.
--- NOTE | 2025-01-18 11:54 | W.PN.UPDATE ---
Update Note
Progress Note Update
- IR consulted for thoracentesis. Imaging reviewed; bilateral small pleural effusions. Will plan to bring him down for thora tomorrow. INR needs to be less than 3
--- NOTE | 2025-01-18 12:41 | W.PN.HOSP.TC ---
Today's Communication/Plan
-
iRad for thoracentesis
Diuresis per cardiology
Continue with IV antibiotics
Holding Coumadin for procedure
Assessment / Plan
Assessment / Plan
General: Well Developed, Well Nourished and No Apparent Distress
HEENT: NormoCephalic, Moist mucous membranes and Atraumatic
Respiratory: Decreased breath sound
Cardiac: S1/S2 and Regular Rhythm; No Murmur or Rub, midsternal scar noted
GI: Soft, Non Tender, Non Distended and Normal Bowel Sounds; No Organomegaly
Rectal: Deferred by Provider
Musculoskeletal: Other (Significant pedal edema, 1+ bilaterally, edema does extend into the mid calf bilaterally. )
Skin: No Rash
Neuro: AO x 3 and Nonfocal/grossly intact
Psych: Anxious
ASSESSMENT & PLAN
Dyspnea likely secondary to pleural effusion
-Suspected acute on chronic HFpEF
-iRad consulted. Plan for thoracentesis in the morning. Goal INR less than 3. Hold Coumadin for procedure as patient severely symptomatic and needs to undergo thoracentesis.
-proBNP at 9000
-Will defer Lasix to cardiology and CT surgery
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
- Now s/p complex open heart surgery (12/27/2024) with mechanical AVR, debridement LVOT/MV structures
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
- Enterobacter cloacae also isolated from valve tissue (from enrichment broth only)
- cont IV ertapenem. Goal is continue antibiotics through 02/11/2025
Mechanical aortic valve replacement:
- sub Rxtic INR @ 2.2 at Goal INR 2- 3
- cont [employer] Warfarin 1 mg qpm after procedure
- on ASA 81mg
Benign Hypertension
- on [employer] Amlodipine 10 mg
- on [employer] coreg 25mg bid
- on hydralazine 50mg tid (lowered for hypotensive episode)
- Avoiding JUAN/ARB with recovering CORNELIO
Chronic HFPEF
- B/L LE edema
- F[employer] BB and ASA
- F[employer] ethacrynic acid per nephrology
- F[employer] aldactone
- Unable to do JUAN/ARB due to elevated creatinine
- Daily weights.
Post op new LBBB/IVCD, follow telemetry:
-stable in SR
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
[place] CKD3a may be new baseline
- Known to nephrology
Primary hypertension
- on diuresis, Aldactone, carvedilol and hydralazine and norvasc
Anemia of chronic disease - stable Hgb around 7
Acute blood loss anemia status post surgery ( HX Status post 5 units of PRBC on last admission)
Recovered postop thrombocytopenia ( HX status post 2 units of platelet transfusion and 2 units of FFP)
- trend CBC
- Blood Tx if Hgb less than 7
Tooth filling cap dislodgement
-outpatient follow up with dentist
Anxiety/depression
- continue Xanax as needed, fluoxetine, mirtazepine
History of opiate abuse
Was on Suboxone.
Limited opioid.
DVT Px: on Chr warfarin
Full code
Anticipated Discharge: > 48 hours
Subjective/Interval History
-
Date of Service: January 18, 2025
Remains anxious
Objective Data
-
Labs:
Laboratory Results
01/17/25 01/18/25
22:18 03:35
WBC 8.5
Hgb 8.0 L
Hct Cancelled 23.8 L
Plt Count 192
PT 24.9 H
INR 2.24
Sodium 140
Potassium 3.9
Chloride 114 H
Carbon Dioxide 22
BUN 22 H
Creatinine 1.4 H
Glucose 98
Calcium 8.4
Total Bilirubin 0.5
AST 17
ALT < 10
Alkaline Phosphatase 110
Vital Signs:
Vital Signs
Temp Pulse Resp BP Pulse Ox
98.9 F 83 18 176/98 96
01/18/25 11:13 01/18/25 07:58 01/18/25 06:01 01/18/25 07:58 01/18/25 11:21
I&O
01/17/25 01/18/25 01/19/25
06:59 06:59 06:59
Intake Total 540 / 540
Output Total 750 / 750
Balance -210 / -210
Data Reviewed
-
Total Time Spent with Patient (in minutes): 55
[2025-01-18] MEDS: XANAX 0.5 MG PO ×2 (12:45→18:17)
--- NOTE | 2025-01-18 15:37 | W.PN.CD ---
Today's Communication / Plan
-
- Thoracentesis planned for tomorrow by IR.
- Continue ethacrynic acid and Aldactone.
Impression / Plan
-
49-year-old man with no previous cardiac history who presents with unintentional weight loss since October found to have aortic valve endocarditis complicated by septic emboli to the brain and spleen, s/p AoV replacement and extensive debridement with
Dr. Denney on 12/27/24. Course complicated by subarachnoid hemorrhage. Patient was discharged 4 days ago and now presents with progressive lower extremity swelling and dyspnea.
Lower extremity edema/dyspnea/chronic HFpEF:
- Echocardiogram yesterday revealed hyperdynamic LVEF (greater than 75%), small pericardial effusion, normal-functioning well-seated mechanical aortic valve (mean gradient 17 mmHg); large pleural effusion.
- Thoracentesis planned for tomorrow by IR.
- Continue ethacrynic acid and Aldactone.
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
- Complicated by CVA with hemorrhagic conversion, CORNELIO, & splenic infarct
- Now s/p complex open heart surgery (12/27/2024) with mechanical AVR, debridement LVOT/MV structures
- Stable on echocardiogram.
- INR 2.24
Hypertension
- Blood remains pressure stable; continue current medications.
Post op new LBBB/IVCD:
- Stable.
History of opioid abuse, off Subutex, psychiatry has signed off.
Physical Exam
Vital Signs/Labs
Vital Signs
Temp Pulse Resp BP Pulse Ox
98.9 F 70 15 116/69 95
01/18/25 11:13 01/18/25 14:00 01/18/25 14:00 01/18/25 14:00 01/18/25 14:00
01/17/25 01/18/25 01/19/25
06:59 06:59 06:59
Actual Weight 74.707 kg
01/18/25 03:35
01/18/25 03:35
PT 24.9 Sec (11.4-14.6) H 01/18/25 03:35
INR 2.24 01/18/25 03:35
APTT 40.1 Sec (23.4-35.0) H 01/17/25 18:36
01/17/25
17:46
Kcq-S-Jhvbqoojczr Pept 9030
LAB Results
01/17/25
17:46
Troponin I 0.083 H*
Physical Exam
Constitutional: No acute distress and Comfortable
EENT: Anicteric
Cardiovascular: Rhythm & rate is regular, Pedal edema present (2+), Systolic murmur present (2/6) and S1S2 is normal (Mechanical S1/S2)
Respiratory: Respiratory effort normal and Other (Decreased bibasilar breath sounds)
GI: Soft
Neuro/Psych: AO x 3
Other: Skin (Warm, dry)
Data Reviewed
-
Date of Service: January 18, 2025
EKG: Tracing Personally Visualized and interpreted (Telemetry: Sinus rhythm)
Echo: Tracing Personally Visualized and interpreted (LVEF greater than 75%, small pericardial effusion, normal-functioning well-seated mechanical aortic valve (mean gradient 17 mmHg); large pleural effusion.)
Medical Tests (PFT, Pathology etc): Discussed with Nurse, Discussed with Patient and Discussed with Family ( at bedside)
Labs: Labs Reviewed by me
[2025-01-18] MEDS: COUMADIN 1 MG PO (17:09)
--- NOTE | 2025-01-18 19:07 | PTCARENOTE ---
Patient expressed being depressed about being in and out of the hospital and the antibiotic he takes at home through the PICC line. Asked patient if he has thought of harming himself and he denied.
[2025-01-18] MEDS: AMBIEN 10 MG PO (20:31)
[2025-01-18] MEDS: INVANZ 60 MG IV (21:42)
[2025-01-19] VITALS (25 sets, daily range): BP systolic 69–169; BP diastolic 79–100; BMI 23.7
[2025-01-19 05:10] LABS: Hematocrit 21.5 % (39.0-52.0); Hemoglobin 7.1 g/dL (13.0-18.0); Mean Corp Hgb Conc. 33.0 g/dL (33.0-37.0); Mean Corpuscular Volume 88.5 fL (80.0-94.0); Platelet Count 151 10^3/uL (130-400); Red Cell Dist. Width 16.9 % (11.5-14.5)
[2025-01-19 05:11] LABS: INR 2.11; PT 23.8 Sec (11.4-14.6)
[2025-01-19 05:29] LABS: Blood Urea Nitrogen 21 mg/dl (9-20); Calcium 8.1 mg/dl (8.4-10.2); Carbon Dioxide 26 mmol/L (22-30); Chloride 113 mmol/L (98-107); Estimated Creatinine Clearance 61 ml/min; Glucose 105 mg/dl (70-99); Potassium 4.0 mmol/L (3.5-5.1); Sodium 140 mmol/L (135-145); eGFR 56.37
--- NOTE | 2025-01-19 05:44 | PTCARENOTE ---
Pt appearing to get sleep over night. Pt respirations even unlabored. Spo2 94% RA. Pt had no complaints of pain at this time. Call quesada within reach. Assessment care and vitals as charted.
[2025-01-19] MEDS: NEURONTIN 300 MG PO ×2 (07:53→20:58)
[2025-01-19] MEDS: ALDACTONE 25 MG PO (07:54)
[2025-01-19] MEDS: COREG 25 MG PO ×2 (07:54→20:58)
[2025-01-19] MEDS: APRESOLINE 50 MG PO ×3 (07:54→23:26)
[2025-01-19] MEDS: PROTONIX 40 MG PO (07:55)
[2025-01-19] MEDS: EDECRIN 50 MG PO ×2 (07:55→20:58)
[2025-01-19] MEDS: NORVASC 10 MG PO (07:55)
[2025-01-19] MEDS: PROZAC 40 MG PO (07:55)
[2025-01-19] MEDS: ASPIR LOW (ENTERIC COATED) 81 MG PO (07:55)
--- NOTE | 2025-01-19 09:25 | W.PN.CD ---
Today's Communication / Plan
-
breathing stable this morning
- Thoracentesis planned for 01/19/25
- Continue ethacrynic acid and Aldactone.
- monitor renal function
- Tx of anemia.
- hb down to 7.1
- recommend PRBC. Would give diuretic after unit
Impression / Plan
-
49-year-old man with no previous cardiac history who presents with unintentional weight loss since October found to have aortic valve endocarditis complicated by septic emboli to the brain and spleen, s/p AoV replacement ( mechanical)and extensive
debridement with Dr. Denney on 12/27/24. Course complicated by subarachnoid hemorrhage. Patient was discharged 4 days ago and now presents with progressive lower extremity swelling and dyspnea.
Lower extremity edema/dyspnea/chronic HFpEF:
- Echocardiogram yesterday revealed hyperdynamic LVEF (greater than 75%), small pericardial effusion, normal-functioning well-seated mechanical aortic valve (mean gradient 17 mmHg); large pleural effusion.
- Thoracentesis planned for 01/19/25
- Continue ethacrynic acid and Aldactone.
- monitor renal function
- Tx of anemia.
.
Aneiia -
- hb down to 7.1
- recommend PRBC. Would give diuretic after unit
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
- Complicated by CVA with hemorrhagic conversion, CORNELIO, & splenic infarct
- Now s/p complex open heart surgery (12/27/2024) with mechanical AVR, debridement LVOT/MV structures
- Stable on echocardiogram.
- INR 2.1 on 01/19/25
Hypertension
- elevated this morning. Monitor after meds
Post op new LBBB/IVCD:
- Stable.
History of opioid abuse, off Subutex, psychiatry has signed off.
Physical Exam
Vital Signs/Labs
Vital Signs
Temp Pulse Resp BP Pulse Ox
98.3 F 78 20 169/98 96
01/19/25 07:15 01/19/25 09:00 01/19/25 09:00 01/19/25 08:00 01/19/25 09:00
01/18/25 01/19/25 01/20/25
06:59 06:59 06:59
Actual Weight 74.707 kg 74.9 kg
01/19/25 04:55
01/19/25 04:55
PT 23.8 Sec (11.4-14.6) H 01/19/25 04:55
INR 2.11 01/19/25 04:55
APTT 40.1 Sec (23.4-35.0) H 01/17/25 18:36
01/17/25
17:46
Dhp-Y-Jcyrmpmazrz Pept 9030
LAB Results
01/17/25
17:46
Troponin I 0.083 H*
Physical Exam
Constitutional: No acute distress
Cardiovascular: Rhythm & rate is regular and Systolic murmur present
Respiratory: Respiratory effort normal
GI: Soft, Non tender and Normal bowel sounds
Neuro/Psych: Alert and Oriented
Other: Other (mild lower ext edema)
Data Reviewed
-
Date of Service: January 19, 2025
Medical Decision Making: Reviewed Test Results
Echo: Report Reviewed by me
Medical Tests (PFT, Pathology etc): Report Reviewed by me
Labs: Labs Reviewed by me
--- NOTE | 2025-01-19 10:18 | W.PN.HOSP.TC ---
Addendum entered and electronically signed by Jose A Odell MD 01/19/25 15:32:
nonischemic myocardial injury in the setting of pleural effusion and anemia
Original Note:
Today's Communication/Plan
-
transfuse 1u of PRBC
Monitor BP-Adjust meds if needed
thoracentesis today
daily INR
Assessment / Plan
Assessment / Plan
General: Well Developed, Well Nourished and No Apparent Distress
HEENT: NormoCephalic, Moist mucous membranes and Atraumatic
Respiratory: Decreased breath sound
Cardiac: S1/S2 and Regular Rhythm; No Murmur or Rub, midsternal scar noted
GI: Soft, Non Tender, Non Distended and Normal Bowel Sounds; No Organomegaly
Rectal: Deferred by Provider
Musculoskeletal: Other (Significant pedal edema, 1+ bilaterally, edema does extend into the mid calf bilaterally. )
Skin: No Rash
Neuro: AO x 3 and Nonfocal/grossly intact
Psych: Anxious
ASSESSMENT & PLAN
Dyspnea likely secondary to pleural effusion
-Suspected acute on chronic HFpEF
-[facility] consulted. Plan for thoracentesis tentatively today.. Goal INR less than 3.
-proBNP at 9000
-Will defer diuresis to cardiology and CT surgery
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
- Now s/p complex open heart surgery (12/27/2024) with mechanical AVR, debridement LVOT/MV structures
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
- Enterobacter cloacae also isolated from valve tissue (from enrichment broth only)
- cont IV ertapenem. Goal is continue antibiotics through 02/11/2025
Mechanical aortic valve replacement:
- sub Rxtic INR @ 2.1 at Goal INR 2- 3
- cont [employer] Warfarin 1 mg qpm after procedure
- on ASA 81mg
Benign Hypertension
- on [employer] Amlodipine 10 mg
- on [employer] T[employer] coreg 25mg bid
- on hydralazine 50mg tid (lowered for hypotensive episode)
- Avoiding JUAN/ARB with recovering CORNELIO
Chronic HFPEF
- B/L LE edema
- [employer] BB and ASA
- [employer] ethacrynic acid per nephrology
- [employer] aldactone
- Unable to do JUAN/ARB due to elevated creatinine
- Daily weights.
Post op new LBBB/IVCD, follow telemetry:
-stable in SR
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
However CKD3a may be new baseline
- Known to nephrology
Primary hypertension
- on diuresis, Aldactone, carvedilol and hydralazine and norvasc
Anemia of chronic disease - stable Hgb around 7
Acute blood loss anemia status post surgery ( HX Status post 5 units of PRBC on last admission)
Recovered postop thrombocytopenia ( HX status post 2 units of platelet transfusion and 2 units of FFP)
- trend CBC
-Hgb at 7.1. d/w with cards/CTS-pt would benefit from 1u of PRBC. Will transfuse.
Tooth filling cap dislodgement
-outpatient follow up with dentist
Anxiety/depression
- continue Xanax as needed, fluoxetine, mirtazepine
History of opiate abuse
Was on Suboxone.
Limited opioid.
DVT Px: on Chr warfarin
Full code
Anticipated Discharge: > 48 hours
Subjective/Interval History
-
Date of Service: January 19, 2025
on room air
states feeling weak
Objective Data
-
Labs:
Laboratory Results
01/19/25
04:55
WBC 7.0
Hgb 7.1 L
Hct 21.5 L
Plt Count 151 D
PT 23.8 H
INR 2.11
Sodium 140
Potassium 4.0
Chloride 113 H
Carbon Dioxide 26
BUN 21 H
Creatinine 1.5 H
Glucose 105 H
Calcium 8.1 L
Vital Signs:
Vital Signs
Temp Pulse Resp BP Pulse Ox
98.3 F 78 20 169/98 96
01/19/25 07:15 01/19/25 09:00 01/19/25 09:00 01/19/25 08:00 01/19/25 09:00
I&O
01/18/25 01/19/25 01/20/25
06:59 06:59 06:59
Intake Total 540 / 540 180 / 180
Output Total 750 / 750 775 / 775 500 / 500
Balance -210 / -210 -595 / -595 -500 / -500
Data Reviewed
-
Total Time Spent with Patient (in minutes): 55
[2025-01-19] MEDS: XANAX 0.5 MG PO (10:37)
[2025-01-19 11:59] LABS: Body Fluid Second Tech EM
--- NOTE | 2025-01-19 15:23 | PN.CDI ---
CDI
- -
CDI:
Physician Documentation Request
Admit Date: 01/17/25 21:35
Dear Doctor Jose R,
Patient admitted with dyspnea likely secondary to pleural effusion, Suspected acute on chronic HFpEF
01/17 trop 0.083
Please provide a diagnosis that supports the above lab abnormalities:
Nonischemic myocardial injury
Abnormal lab value clinically insignificant
Other
Use of terms such as suspected, likely, concern for, or probable (associated with a specific diagnosis that is being evaluated, monitored, or treated as if it exists) are acceptable and can be coded in the inpatient setting, when documented at the
time of discharge.
Thank you,
Slime Suarez RN, BSN
CDI Specialist
tiger text
Please use your independent medical judgment in providing your response.
--- NOTE | 2025-01-19 16:23 | CM ---
Patient from [facility] with Dx Dyspnea likely secondary to pleural effusion, Suspected acute on chronic HF, s/p thoracentesis. Room air. PICC line. Receiving IV Abx. PT/OT Ming pending.
Spoke with patient and Loan;
the patient resides with his in a 2 story house with no steps to enter.
Prior to his last hospital admission in December 2024, the patient was independent in ADLs and ambulation.
He has no DME, prior VN.
PCP - Luis Turner
Pharmacy - [facility]
Patient/ state patient did not have a good experience at [facility] and he will not be returning there. They relayed that patient was placed in a room with a patient who was + for MRSA, and he was SOB and the SNF did not want to call their
doctor. is planning on contacting the [facility] in this regard. They are unsure if they want another SNF or prefer to go home.
Spoke with [facility];
the patient was there for short term rehab and was receiving IV Ertapenum (end date 02/15/25).
He was accepted under Medicaid pending status.
Phone call to ODILON Slade; left message inquiring re; MA pending status/if likely to be approved for MA?
Plan follow up after seen by PT/OT.
Plan follow patient's IV Abx needs.
--- NOTE | 2025-01-19 16:24 | PTCARENOTE ---
Rec'd pt this AM. Anxious prior to thoracentesis procedure. PRN meds given with relief. Pt tolerated procedure. IRAD RN reported 850ml serosanguinous fluid removed. Pt reported improved breathing. one unit PRBC infused. Pt tolerated transfusion
well. OOB x1 with walker, unsteady gait but able to ambulate with assistance. Spouse at bedside. vital signs stable.
[2025-01-19] MEDS: COUMADIN 1 MG PO (17:00)
[2025-01-19] MEDS: AMBIEN 10 MG PO (20:58)
[2025-01-19] MEDS: MUCINEX 600 MG PO (20:58)
[2025-01-19] MEDS: TESSALON PERLES 100 MG PO (21:10)
[2025-01-19] MEDS: INVANZ 60 MG IV (21:28)
[2025-01-20] VITALS (15 sets, daily range): BP systolic 106–181; BP diastolic 70–92; PULSE 78; O2SAT 95; BMI 23.7; BMI 23.4
--- NOTE | 2025-01-20 01:32 | PTCARENOTE ---
Pt having complaints of wheezing and a cough. Lung sounds b/l upper lobes scattered rhonchi b/l lower diminishes. Night RN INTENSIVE CARE UNIT made aware, respiratory consulted. Orders placed for pro air and Mucinex. Pt appearing to have positive results. While Pt
sleeping spo2 dropping to 86% and maintaining in 80's. 3l nc placed nigth RN INTENSIVE CARE UNIT made aware. spo2 now 95% on 3L respiration even unlabored at this time. Call quesada within reach bed alarm on.
[2025-01-20] MEDS: XANAX 0.5 MG PO ×2 (02:29→14:47)
[2025-01-20 04:30] LABS: Hematocrit 23.3 % (39.0-52.0); Hemoglobin 7.8 g/dL (13.0-18.0); Mean Corp Hgb Conc. 33.5 g/dL (33.0-37.0); Mean Corpuscular Volume 86.9 fL (80.0-94.0); Platelet Count 135 10^3/uL (130-400); Red Cell Dist. Width 16.9 % (11.5-14.5)
[2025-01-20 04:44] LABS: INR 2.01; PT 22.9 Sec (11.4-14.6)
[2025-01-20 04:53] LABS: Blood Urea Nitrogen 21 mg/dl (9-20); Calcium 7.8 mg/dl (8.4-10.2); Carbon Dioxide 23 mmol/L (22-30); Chloride 111 mmol/L (98-107); Estimated Creatinine Clearance 57 ml/min; Glucose 96 mg/dl (70-99); Potassium 3.8 mmol/L (3.5-5.1); Sodium 138 mmol/L (135-145); eGFR 52.17
--- NOTE | 2025-01-20 08:21 | PTCARENOTE ---
Patient received from screen handler. Patient resting comfortably in bed. AAO, VSS. Patient with a little desat issue overnight and was placed on 3L N/C. No complaints of pain. Will try to get OOB to chair. Currently on Room Air. No testing
scheduled at this time. Possible downgrade. Hopeful for [facility] for rehab. Call quesada in reach
--- NOTE | 2025-01-20 08:53 | W.PN.HOSP.TC ---
Today's Communication/Plan
-
Transfer to telemetry
PT OT consult
DC plan
Assessment / Plan
Assessment / Plan
ASSESSMENT & PLAN
Dyspnea likely secondary to pleural effusion-improved dyspnea and improving oxygenation status postthoracentesis. Transudative in nature based on lights criteria.
Acute on chronic HFpEF
- Echo shows stable postop findings and EF of 75%
- Continue with current diuretic regimen-currently on oral ethacrynic acid and Aldactone.
- on Coreg.
Acute on anemia of chronic disease - stable Hgb around 7
Acute blood loss anemia status post surgery ( HX Status post 5 units of PRBC on last admission)
Recovered postop thrombocytopenia ( HX status post 2 units of platelet transfusion and 2 units of FFP)
- S/p 1 unit of PRBC transfusion on this admission. Continue to trend CBC.
-Heme test
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
- Now s/p complex open heart surgery (12/27/2024) with mechanical AVR, debridement LVOT/MV structures
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
- Enterobacter cloacae also isolated from valve tissue (from enrichment broth only)
- cont IV ertapenem. Goal is continue antibiotics through 02/11/2025
Mechanical aortic valve replacement:
- Was on Coumadin and aspirin.
Restarted Coumadin postthoracentesis. INR 2.01 today.
Benign Hypertension
- on CHIROPRACTIC NEUROLOGIST Amlodipine 10 mg
- on CHIROPRACTIC NEUROLOGIST coreg 25mg bid
- on hydralazine 50mg tid (lowered for hypotensive episode)
- Avoiding JUAN/ARB with recovering CORNELIO
Post op new LBBB/IVCD, follow telemetry:
-stable in SR
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
However CKD3a may be new baseline
- Known to nephrology
Tooth filling cap dislodgement
-outpatient follow up with dentist
Anxiety/depression
- continue Xanax as needed, fluoxetine, mirtazepine
History of opiate abuse
Was on Suboxone.
Limited opioid.
DVT Px: on Chr warfarin
Full code
Wean oxygen. Transfer to telemetry
PT OT consults
DC plan
Anticipated Discharge: 24 - 48 hours
Subjective/Interval History
-
Date of Service: January 20, 2025
Feeling improved from breathing standpoint. Is currently on 1 L today saturating at 98%. Denies any chest pain.
No nausea vomiting. No fever or chills.
Denies any dizziness.
Not happy with his current rehab as the not providing him with much PT nor providing low-salt diet.
Objective Data
-
Labs:
Laboratory Results
01/20/25
04:16
WBC 7.8
Hgb 7.8 L
Hct 23.3 L
Plt Count 135
PT 22.9 H
INR 2.01
Sodium 138
Potassium 3.8
Chloride 111 H
Carbon Dioxide 23
BUN 21 H
Creatinine 1.6 H
Glucose 96
Calcium 7.8 L
Vital Signs:
Vital Signs
Temp Pulse Resp BP Pulse Ox
97.9 F 75 13 151/89 96
01/20/25 07:06 01/20/25 06:00 01/20/25 06:00 01/20/25 06:00 01/20/25 06:00
I&O
01/19/25 01/20/25 01/21/25
06:59 06:59 06:59
Intake Total 180 / 180 550 / 550
Output Total 775 / 775 1450 / 1450
Balance -595 / -595 -900 / -900
Physical Exam
-
General: Comfortable
Respiratory: Crackles (Bibasilar crackles) and Non Labored Respirations; Negative Wheezes or Accessory Resp Muscle Use
Cardiac: Regular Rhythm, S1/S2 and Other (Mechanical aortic valve sound)
GI: Soft
Musculoskeletal: Other (Bilateral trace lower extremity edema none)
Neuro: AO x 3
Psych: Calm; Negative Confused
Data Reviewed
-
Labs: Labs Reviewed by me
[2025-01-20] MEDS: NEURONTIN 300 MG PO ×2 (09:47→20:41)
[2025-01-20] MEDS: APRESOLINE 50 MG PO ×3 (09:47→23:12)
[2025-01-20] MEDS: NORVASC 10 MG PO (09:47)
[2025-01-20] MEDS: PROTONIX 40 MG PO (09:47)
[2025-01-20] MEDS: PROZAC 40 MG PO (09:47)
[2025-01-20] MEDS: ALDACTONE 25 MG PO (09:47)
[2025-01-20] MEDS: COREG 25 MG PO ×2 (09:48→20:42)
[2025-01-20] MEDS: ASPIR LOW (ENTERIC COATED) 81 MG PO (09:48)
[2025-01-20] MEDS: MUCINEX 600 MG PO ×2 (09:48→20:42)
[2025-01-20] MEDS: EDECRIN 50 MG PO ×2 (09:48→20:41)
--- NOTE | 2025-01-20 12:13 | CM ---
Patient from [facility] with Hx recent mechanical aortic valve replacement with Dx pleural effusion, HF,anemia, Aortic valve endocarditis. Room air. PICC line. Receiving IV Abx. PT/OT Evals recommend acute rehab. Physiatry Consult pending.
Spoke with ODILON Slade; the MA application was submitted on the prior admission on a [place] basis- they are expecting an answer in the next day or so. She will reach out again for a determination.
Spoke with [facility]; they are unable to accept an MA pending patient.
Spoke with [facility]; they will consider the patient. She will have her finance dept check on his MA pending status also. Raffy is aware that Physiatry Consult is ordered. They will need a new script for the IV Abx. [facility].
Met with patient who is interested in [facility]. Informed patient that DEN spoke with [facility] on his behalf and that the director of safety will be evaluating him for [facility]. He is aware that his d/c needs include rehab and ongoing IV Abx. Provided
update that his insurance status is still MA pending and we are hoping for a decision soon.
Plan follow up with [facility] re; MA determination.
Plan obtain script for IV Abx.
Plan follow up after seen by Physiatry.
--- NOTE | 2025-01-20 13:49 | W.PN.CD ---
Today's Communication / Plan
-
Continue diuresis
Increase activity
Impression / Plan
-
49-year-old man with no previous cardiac history who presents with unintentional weight loss since October found to have aortic valve endocarditis complicated by septic emboli to the brain and spleen, s/p AoV replacement ( mechanical)and extensive
debridement with Dr. Denney on 12/27/24. Course complicated by subarachnoid hemorrhage. Patient was discharged 4 days ago and now presents with progressive lower extremity swelling and dyspnea.
Lower extremity edema/dyspnea/chronic HFpEF:
- Echocardiogram this admit: hyperdynamic LVEF (greater than 75%), small pericardial effusion, normal-functioning well-seated mechanical aortic valve (mean gradient 17 mmHg); large pleural effusion.
- Thoracentesis done 01/19/25
- Continuing ethacrynic acid and Aldactone.
- monitor renal function
- Tx of anemia => was transfused
Anemia -
- hgb 7.1
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
- Complicated by CVA with hemorrhagic conversion, CORNELIO, & splenic infarct
- Now s/p complex open heart surgery (12/27/2024) with mechanical AVR, debridement LVOT/MV structures
- Stable on echocardiogram.
- INR OK
Hypertension
Post op new LBBB/IVCD:
- Stable.
History of opioid abuse, off Subutex, psychiatry has signed off.
Subjective:
No CP or dyspnea. Working with PT/OT now
Physical Exam
Vital Signs/Labs
Vital Signs
Temp Pulse Resp BP Pulse Ox
97.9 F 76 13 181/89 96
01/20/25 07:06 01/20/25 09:47 01/20/25 06:00 01/20/25 09:47 01/20/25 06:00
01/19/25 01/20/25 01/21/25
06:59 06:59 06:59
Actual Weight 74.9 kg 74.9 kg 73.9 kg
01/20/25 04:16
01/20/25 04:16
PT 22.9 Sec (11.4-14.6) H 01/20/25 04:16
INR 2.01 01/20/25 04:16
APTT 40.1 Sec (23.4-35.0) H 01/17/25 18:36
01/17/25
17:46
Aey-R-Irjpykrvfjc Pept 9030
LAB Results
01/17/25
17:46
Troponin I 0.083 H*
Physical Exam
Constitutional: No acute distress
EENT: Anicteric
Cardiovascular: Rhythm & rate is regular and Pedal edema is absent
Respiratory: Respiratory effort normal and Rhonchi Present
GI: Soft and Distention absent
Neuro/Psych: AO x 3
Data Reviewed
-
Date of Service: January 20, 2025
--- NOTE | 2025-01-20 15:18 | PTCARENOTE ---
Report attempted, receiving RN will call when available.
--- NOTE | 2025-01-20 15:45 | PTCARENOTE ---
Report called to Hien RN [facility] [place]. Transport called.
--- NOTE | 2025-01-20 17:30 | PTCARENOTE ---
Received report from Fredy in IMU. pt pulled over to bed. Pt AAOx3 and very pleasant. VSS. POC discussed with pt and Loan @bedside. Pt resting in bed, with call quesada in reach, POC ongoing.
[2025-01-20] MEDS: COUMADIN 1 MG PO (18:12)
--- NOTE | 2025-01-20 18:49 | CON.ID ---
Consultation
-
Date/Time Consultation Requested: 01/20/2025 1538
Date/Time Consultation Performed: 01/20/2025 1830
Requesting Provider: Dr. Collado
Performing Provider: Dr. Key
Reason for Consultation: Endocarditis
Chief Complaint / Past History
History of Present Illness
Kranthi Kwan is a 49-year-old man being evaluated at the request of Dr. Collado in regards to endocarditis. History is obtained from chart review, patient interview.
The patient is known to the ID service, having been seen during his prior admission to [facility] in mid December. At that time, he reported that he had not been feeling well for several months with poor oral intake and decreased overall
appetite. He thought his symptomatology initially was secondary to stress from recently being laid off from work. Additionally, he also reported that he was having problems with balance difficulty walking. He initially presented to [facility] around 12/18/2024, and at that point in time he was found to be anemic and with CORNELIO. Blood cultures attained at that time grew out Streptococcus mutans. MRI of the brain suggested septic emboli, and echocardiography revealed an aortic valve
vegetation. He was placed on IV antibiotics and transferred to [facility] for further care.
The patient underwent valve replacement on 12/27. He initially was on ceftriaxone, but subsequent valve tissue cultures grew out Enterobacter cloacae, and the patient was transitioned to ertapenem, to continue with a 6-week course through 02/14/2025.
The patient was discharged to a local [facility]p facility on 01/14. The patient presents back to [facility] on 01/17 secondary to shortness of breath, aggressive lower extremity edema and exertional dyspnea over the prior 24 hours. Workup
in the ER revealed a large left pleural effusion, and the patient ultimately underwent thoracentesis. Currently he is feeling improved. He reports breathing is comfortable. He reports minimal cough, with occasional whitish sputum.
Past History
Additional Past Medical History:
HTN
DM type II
Nephrolithiasis
Subarachnoid hemorrhage
Additional Past Surgical History:
Remote history JJ stent
AVR (mechanical; 12/27/2024)
Allergy History:
Sulfa (Sulfonamide Antibiotics) Allergy (Verified 01/17/25 17:21)
Anaphylaxis
sulfite Allergy (Verified 01/17/25 17:21)
Anaphylaxis
Current Antibiotics:
Ceftriaxone 2 g IV every 24 hours
Social History
Tobacco: Non-Smoker
Alcohol: None
Drug: None
Personal:
Living: With Family
Employment: Not Employed
Family History
Family History: Not Pertinent
Review of Systems
Vital Signs
Temp Pulse Resp BP Pulse Ox
97.8 F 76 17 133/85 97
01/20/25 16:15 01/20/25 16:15 01/20/25 16:15 01/20/25 16:15 01/20/25 16:50
Physical Exam
Physical Exam
Constitutional: No Acute Distress, Comfortable, Chronically Ill and Non-toxic
Eyes: No Conjunctival Hemorrhage and Sclera Anicteric
Oral: No Thrush and No Ulcers
Cardiovascular: S1/S2 and Other (Positive click); Negative S3/S4
Pulmonary: Clear, Non Labored and Other (Diminished breath sounds in the bases); Negative Wheezes or Rales
Gastrointestinal: Soft, Non Tender, Non Distended, Normal Bowel Sounds, No Rebound and No Guarding
Extremities: Edema (4+ lower extremities); Negative Erythema, Splinter Hemorrhage, Calf Swelling or Janeway Lesions
Musculoskeletal: Negative Joint Swelling or Joint Effusion
Skin: Warm and Dry; Negative Rash or Jaundice
Neurological: Awake and Alert
Psychological: Calm
.
Lab / Diagnostic Study Results
01/20/25 04:16
01/20/25 04:16
Abs Immat Gran (auto) 0.1 10^3/uL (0-0.05) H 01/17/25 17:46
Absolute Neuts (auto) 5.3 10^3/uL (1.4-6.5) 01/17/25 17:46
Absolute Lymphs (auto) 2.1 10^3/uL (1.2-3.4) 01/17/25 17:46
Absolute Monos (auto) 0.7 10^3/uL (0.1-0.6) H 01/17/25 17:46
Absolute Basos (auto) 0.1 10^3/uL (0-0.2) 01/17/25 17:46
Immature Gran % 1.3 % (0-0.5) H 01/17/25 17:46
Neutrophils % 64.0 % (42.2-75.2) 01/17/25 17:46
Lymphocytes % 25.9 % (20.5-51.1) 01/17/25 17:46
Monocytes % 8.0 % (1.7-9.3) 01/17/25 17:46
Eosinophils % 0.0 % (0-6) 01/17/25 17:46
Basophils % 0.8 % (0-2) 01/17/25 17:46
PT 22.9 Sec (11.4-14.6) H 01/20/25 04:16
INR 2.01 01/20/25 04:16
Microbiology Results
Micro:
01/19/25 11:30 Body Fluid Culture - Preliminary
Pleural Fluid No Growth After 18-24 Hours
Gram Stain - Preliminary
01/17/25 23:30 MRSA Screen - Final
Nose No Methicillin Resistant Staphylococcus aureus isolated.
Imaging:
01/19/2025 CXR (portable): Interval left-sided thoracentesis without evidence of pneumothorax. Improved aeration of the left lower lung. Please see full dictation for additional detail. Film personally reviewed.
01/17/2025 CT chest (PE study): No PE seen. Moderate bilateral pleural effusions. Near complete atelectasis of the left lower lobe. Small focal area of atelectasis involving the posterior lingula. Subtle band shaped focus of decreased density
involving the superior spleen suggesting a focal area of splenic infarction. There is a small fluid collection posterior to the mid to inferior sternum which is likely postsurgical seroma. No evidence of a thickened enhancing wall to suggest
abscess. Please see full dictation for additional detail.
Assessment / Plan
Continue antibiotics. See below�
Assessment / Plan
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
- Enterobacter cloacae also isolated from valve tissue (from enrichment broth only)
Suspected septic emboli to the brain
Subarachnoid hemorrhage
Leukocytosis; resolved
Renal insufficiency
Elevated ESR, CRP
Pleural effusion
HTN
DM type II
Nephrolithiasis
Recommendations:
Patient status post valve replacement with mechanical AVR (12/27/2024)
Aortic valve cx: Enterobacter cloacae (on enrichment broth only) - possibly contaminant.
- To error on side of caution, treating both S. mutans and E. cloacae isolates.
-> Continue Ertapenem 1g IV q 24h x 6 weeks (through 02/14/25)
--> Follow weekly CBC with diff, CMP, ESR / CRP.
Check ESR and CRP tomorrow.
[2025-01-21] VITALS (7 sets, daily range): BP systolic 125–167; BP diastolic 77–92; PULSE 71; O2SAT 98
[2025-01-21] MEDS: INVANZ 60 MG IV ×2 (00:13→22:36)
[2025-01-21 06:15] LABS: Hematocrit 24.6 % (39.0-52.0); Hemoglobin 8.4 g/dL (13.0-18.0); Mean Corp Hgb Conc. 34.1 g/dL (33.0-37.0); Mean Corpuscular Volume 85.4 fL (80.0-94.0); Platelet Count 144 10^3/uL (130-400); Red Cell Dist. Width 16.6 % (11.5-14.5)
[2025-01-21 06:26] LABS: INR 1.54; PT 18.7 Sec (11.4-14.6)
[2025-01-21 06:37] LABS: Blood Urea Nitrogen 23 mg/dl (9-20); Calcium 8.2 mg/dl (8.4-10.2); Carbon Dioxide 24 mmol/L (22-30); Chloride 110 mmol/L (98-107); Estimated Creatinine Clearance 61 ml/min; Glucose 101 mg/dl (70-99); Potassium 4.1 mmol/L (3.5-5.1); Sodium 137 mmol/L (135-145); eGFR 56.37
[2025-01-21 06:41] LABS: C-Reactive Protein < 5.00 mg/L (0.0-10.00)
[2025-01-21] MEDS: EDECRIN 50 MG PO ×2 (08:57→20:58)
[2025-01-21] MEDS: APRESOLINE 50 MG PO ×3 (08:57→23:23)
[2025-01-21] MEDS: PROZAC 40 MG PO (08:57)
[2025-01-21] MEDS: MUCINEX 600 MG PO ×2 (08:57→20:57)
[2025-01-21] MEDS: ASPIR LOW (ENTERIC COATED) 81 MG PO (08:57)
[2025-01-21] MEDS: COREG 25 MG PO ×2 (08:58→20:59)
[2025-01-21] MEDS: NORVASC 10 MG PO (08:58)
[2025-01-21] MEDS: PROTONIX 40 MG PO (08:58)
[2025-01-21] MEDS: NEURONTIN 300 MG PO ×2 (08:58→20:56)
[2025-01-21] MEDS: ALDACTONE 25 MG PO (08:59)
--- NOTE | 2025-01-21 09:22 | W.PN.CD ---
Addendum entered and electronically signed by Roman Carrillo DO 01/21/25 15:43:
Response to CDI: Unable to determine if HFpEF is related to AVR.
Original Note:
Today's Communication / Plan
-
Continue diuresis.
Check prealbumin/transthyretin.
Repeat UA.
Check urine total protein/albumin (previously 4+).
Start dapagliflozin 10 mg daily. Case management consult.
PT/OT recommends acute rehab.
Discharge planning.
Impression / Plan
-
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 Denney on
12/27/24, complicated by subarachnoid hemorrhage, discharged 4 days ago and now readmitted with decompensated HFpEF.
#HFpEF:
-Acute on chronic.
-Echocardiogram 01/19/2025 shows hyperdynamic LVEF (>75%), RHONDA with mild MR, small pericardial effusion, normal-functioning well-seated mechanical aortic valve (mean gradient 17 mmHg); large pleural effusion.
-Thoracentesis for 850 mL on 01/19/25. Fluid is exudate (fluid LDH is > 2/3 serum ULN) by Light's criteria. Fluid albumin pending assess with better specificity.
-GDMT as hemodynamics/renal function will tolerate:
-Diuretics: Ethacrynic acid 50 mg BID.
-Beta ck: Carvedilol 25 mg BID.
-ACEI/ARB/ARNi: None (renal contraindication?). Currently on hydralazine for BP control without corresponding nitrate.
-MRA: Spironolactone 25 mg daily.
-SGLT2i: Start dapagliflozin 10 mg daily. Case management consult.
-On exam, there is pitting edema without JVD. Albumin 2.8. Check pre-albumin/transthyretin but I suspect that this is low (and is a marker of protein malnutrition). His LE edema could be due to poor oncotic pressure.
#Renal failure
-Appears to be chronic (though not technically 3 months).
-UA suggests significant proteinuria.
-Check UA, urine protein/creatinine - is proteinuria contributing to poor oncotic pressure (nephritic/nephrotic?).
-Prior nephrology consult comments that prior workup was conducted at [facility], but this was prior to resolution of IE.
-There may be a role for ACEI/ARB/ARNi to minimize proteinuria.
#Deconditioning
-Acute.
-PT/OT following.
-Disposition recommendation for acute rehab.
#Anemia
-Chronic, appears to be AoCD.
-Hgb dropped to 7.1. One unit of PRBC's given with subsequent furosemide (01/19/2025).
-Hbg has improved to 8.4.
#Strep mutans aortic valve endocarditis
-Complicated by septic emboli.
-s/p aortic valve replacement (#23 On-X mechanical SAVR), septal myomectomy and debridement of the mitral chordae.
-Post operative course complicated by hemorrhagic conversion, CORNELIO, & splenic infarct.
-Stable on echocardiogram.
-ESR stable from prior (86 <-- 87 <-- 58). CRP has normalized (< 5.00).
-Continue ertapenem through 02/14/2025 per ID.
-Goal INR 2.5 for 3 months post op, then 1.5-2.0.
#Hypertension
-Chronic, stable.
-Continue carvedilol, amlodipine, hydralazine, spironolactone.
#LBBB/IVCD:
-Stable.
#History of opioid abuse
-History of suboxone use.
-Psychiatry has signed off.
Subjective/Interval History:
Weight is down 1 kg.
Afebrile.
Moderately hypertensive this morning.
S/P one unit of PRBC's.
Concerningly, ESR is 86 (87 <-- 58). Thankfully, CRP is < 5.0.
Feels well.
DATA:
Thoracentesis, 01/19/2025:
IMPRESSION: Successful ultrasound-guided thoracentesis, yielding 850 cc of serosanguineous pleural fluid.
TTE, 01/17/2025:
CONCLUSIONS
-Estimated left ventricular ejection fraction is greater than 75%, by visual
assessment. Wall motion is consistent with postoperative state. No specific
regional wall motion abnormalities are noted.
-Normal right ventricular size and function.
-Thickened mitral valve leaflets which appear to be open normally, but mildly
elevated mean gradient of 5 mmHg. Systolic anterior motion (RHONDA) of the
anterior leaflet of the mitral valve with mild mitral regurgitation.
-Well-seated 23 mm On-X mechanical aortic valve replacement; peak peak/mean
gradients across the valve are 29/17 mmHg. Trace aortic regurgitation.
-Mild to moderate tricuspid regurgitation. Estimated pulmonary artery pressure
of 45-50 mmHg.
-Small pericardial effusion without evidence of hemodynamic compromise.
-Large pleural effusion present.
Physical Exam
Vital Signs/Labs
Vital Signs
Temp Pulse Resp BP Pulse Ox
36.8 C 79 17 167/92 97
01/21/25 07:00 01/21/25 08:59 01/21/25 07:00 01/21/25 08:59 01/21/25 07:00
01/19/25 01/20/25 01/21/25
11:59 11:59 11:59
Actual Weight 74.9 kg 73.9 kg
01/21/25 06:06
01/21/25 06:06
PT 18.7 Sec (11.4-14.6) H 01/21/25 06:06
INR 1.54 01/21/25 06:06
APTT 40.1 Sec (23.4-35.0) H 01/17/25 18:36
01/17/25
17:46
Soe-C-Sydfsctebkd Pept 9030
Physical Exam
Constitutional: No acute distress and Comfortable
EENT: Anicteric and Moist mucous membranes
Cardiovascular: Rhythm & rate is regular, JVD pressure is normal, Pedal edema present, S1S2 is normal and Murmur/rub/gallop absent
Respiratory: Respiratory effort normal, Lungs clear to auscul., Wheeze Absent, Crackles Absent and Rhonchi Absent
GI: Soft, Distention absent, Flat, Non tender and Normal bowel sounds
Neuro/Psych: AO x 3
Data Reviewed
-
Date of Service: January 21, 2025
Medical Decision Making: Reviewed Test Results, Independent Historian Assessment and Test Interpretation
EKG: Tracing Personally Visualized and interpreted and Report Reviewed by me
Echo: Report Reviewed by me
X-Ray/CT/US/MRI/NUC/PET: Image Personally Visualized and interpreted and Report Reviewed by me
Labs: Labs Reviewed by me
Old Records: Reviewed
--- NOTE | 2025-01-21 11:42 | W.PN.ID1 ---
Date of Service
Date of Service: January 21, 2025
Today's Communication
Continue current antibiotics.
Assessment / Plan
Continue antibiotics. See below�
Assessment / Plan
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
- Enterobacter cloacae also isolated from valve tissue (from enrichment broth only)
Suspected septic emboli to the brain
Subarachnoid hemorrhage
Leukocytosis; resolved
Renal insufficiency
Elevated ESR, CRP
- ESR stable, CRP normalized.
Pleural effusion
HTN
DM type II
Nephrolithiasis
Recommendations:
Patient status post valve replacement with mechanical AVR (12/27/2024)
Aortic valve cx: Enterobacter cloacae (on enrichment broth only) - possibly contaminant.
- To error on side of caution, treating both S. mutans and E. cloacae isolates.
-> Continue Ertapenem 1g IV q 24h x 6 weeks (through 02/14/25)
--> Follow weekly CBC with diff, CMP, ESR / CRP.
Trial of Imodium for loose stool.
Chief Complaint
-: Other (Endocarditis)
Subjective / Review of Systems
Patient seen and examined. Reports loose, mushy stool. No abdominal pain.
Review of Systems: No Fever and No Chills
Vital Signs / Physical Exam
Vital Signs
Vital Signs
Temp Pulse Resp BP Pulse Ox
98.1 F 78 18 155/86 96
01/21/25 11:00 01/21/25 11:00 01/21/25 11:00 01/21/25 11:00 01/21/25 11:00
Physical Exam
Constitutional: No Acute Distress, Chronically Ill and Non-toxic
Eyes: No Conjunctival Hemorrhage and Sclera Anicteric
Cardiovascular: S1/S2 and Other (Click); Negative S3/S4
Pulmonary: Clear; Negative Wheezes or Rales
Gastrointestinal: Soft and Non Tender
Neurological: Awake and Alert
Psychological: Calm
Objective Data
Lab Data
Lab Results
01/21/25 06:06
01/21/25 06:06
ESR 86 mm/hour (0-20) H 01/21/25 06:06
PT 18.7 Sec (11.4-14.6) H 01/21/25 06:06
INR 1.54 01/21/25 06:06
APTT 40.1 Sec (23.4-35.0) H 01/17/25 18:36
Estimated Creat Clear 61 ml/min 01/21/25 06:06
Total Bilirubin 0.5 mg/dl (0.2-1.3) 01/18/25 03:35
AST 17 U/L (17-59) 01/18/25 03:35
ALT < 10 U/L (0-50) 01/18/25 03:35
Alkaline Phosphatase 110 U/L (38-126) 01/18/25 03:35
C-Reactive Protein < 5.00 mg/L (0.0-10.00) 01/21/25 06:06
Most recent labs reviewed.
Micro Results:
01/19/25 11:30 Body Fluid Culture - Preliminary
Pleural Fluid No Growth After 48 Hours
Gram Stain - Preliminary
01/17/25 23:30 MRSA Screen - Final
Nose No Methicillin Resistant Staphylococcus aureus isolated.
Imaging:
01/19/2025 CXR (portable): Interval left-sided thoracentesis without evidence of pneumothorax. Improved aeration of the left lower lung. Please see full dictation for additional detail. Film personally reviewed.
01/17/2025 CT chest (PE study): No PE seen. Moderate bilateral pleural effusions. Near complete atelectasis of the left lower lobe. Small focal area of atelectasis involving the posterior lingula. Subtle band shaped focus of decreased density
involving the superior spleen suggesting a focal area of splenic infarction. There is a small fluid collection posterior to the mid to inferior sternum which is likely postsurgical seroma. No evidence of a thickened enhancing wall to suggest
abscess. Please see full dictation for additional detail.
[2025-01-21] MEDS: XANAX 0.5 MG PO ×2 (12:14→17:22)
[2025-01-21] MEDS: IMODIUM 2 MG PO (12:14)
[2025-01-21 13:00] LABS: Total Protein 5.5 g/dl (6.3-8.2)
--- NOTE | 2025-01-21 13:01 | PN.CDI ---
CDI
- -
CDI:
Physician Documentation Request
Admit Date: 01/17/25 21:35
Dear Doctor Gerardo,
Patient is currently admitted for management of acute on chronic HFpEF.
12/27 Patient underwent open aortic valve replacement for Streptococcus mutans endocarditis w/ large, mobile vegetations on AV and LVOT/septum
Please clarify if a relationship exist between these conditions:
Yes, heart failure is related to/associated with/due to recent aortic valve replacement
No, heart failure is not related to/associated with/due to recent aortic valve replacement
Unable to determine
Use of terms such as suspected, likely, concern for, or probable (associated with a specific diagnosis that is being evaluated, monitored, or treated as if it exists) are acceptable and can be coded in the inpatient setting, when documented at the
time of discharge.
Thank you,
Slime Suarez RN, BSN
CDI Specialist
tiger text
Please use your independent medical judgment in providing your response.
--- NOTE | 2025-01-21 13:07 | CON.MD ---
Addendum entered and electronically signed by Ricardo Fallon MD 01/21/25 22:45:
Cardiovascular: Heart: regular, mechanical click�
Original Note:
Documented by User: Sera De Guzman PA-C 01/21/25 20:56
Consultation - Medical
-
Referring Provider:�Donald William
Chief Complaint:�Debility, Aortic valve replacement
�
History of Present Illness:�49-year-old man with PMH of (Hypertension, diabetes type 2, nephrolithiasis, depression, hypertension, insomnia) was admitted to hospital with lower extremity edema, shortness of breath. Had a thoracentesis. Admission
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 s/p Aortic valve replacement (#23 On-X mechanical
SAVR), septal myomectomy and mitral valve chordae debridement by Dr. Denney on 12/27/24, complicated by CVA with subarachnoid hemorrhage conversion, postop anemia requiring 5 units of PRBC, 2 unit of platelets transfusion and 2 units of FFP. He was
discharged 4 days ago to [facility] for rehab and now readmitted with decompensated HFpEF.
Echocardiogram 01/19/2025 shows hyperdynamic LVEF (>75%), RHONDA with mild MR, small pericardial effusion, normal-functioning well-seated mechanical aortic valve (mean gradient 17 mmHg); large pleural effusion.
-Thoracentesis for 850 mL on 01/19/25. Fluid is exudate (fluid LDH is > 2/3 serum ULN) by Light's criteria. Patient on diuretic regimen. Dyspnea likely secondary to pleural effusion with improvement in oxygenation status post thoracentesis.
�
Past Medical History:�Hypertension, diabetes type 2, nephrolithiasis, subarachnoid hemorrhage, renal insufficiency,
Procedure History:�Mechanical aortic valve replacement, colonoscopy, kidney stenting
Family History:�Dad- from Brain cancer, Heart disease, Mom-breast cancer
�
Social History:�
Functional Level Premorbidly:�Independent with all activities�
Functional Level Currently:�Bed mobility�mod assist, transfers�mod assist, ambulated 40 feet into mahoney with minimal assist at slow gait speed but fairly steady gait throughout. Required close contact-guard, decreased bilateral foot clearance at
times. Eating�independent, grooming�set up, toileting, lower extremity self-care�max assist, toilet transfers�mod assist, bed mobility�mod assist,
�
Tobacco:�Denies�
Alcohol:�Denies�
Drug use:�Denies�
�
Lives with:�Spouse
24-hour assistance available:�
Number of floors:�Multilevel
# steps to enter:�0
# steps to second floor:
Potential First floor set up:�yes
Driving:�yes
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
�
�
Allergies:�
Allergy/AdvReac Type Severity Reaction Status Date / Time
Sulfa (Sulfonamide Allergy Anaphylaxis Verified 01/17/25 17:21
Antibiotics)
sulfite Allergy Anaphylaxis Verified 01/17/25 17:21
�
Review of Systems:�
Constitutional: (x) abNormal _weak, weight loss
Eye: (x) Normal _
Ear/Nose/Throat: (x) Normal _
Respiratory: (x) Normal _
Cardiovascular: (x) abNormal _aortic valve endocarditis, CHF, shortness of breath
Gastrointestinal: (x) Normal _
Genitourinary: (x) Normal _
Musculoskeletal: (x) abNormal _bilateral leg weakness
Integumentary: (x) Normal _
Neurologic: (x) Normal _
Psychiatric: (x) abNormal _depression-job loss
Endocrine: (x) Normal _
Hematologic/Lymphatic: (x) Normal _
Allergic/Immunologic: (x) Normal _
�
Medications:�
Active Current Visit Medication List
Category Date Time Status
Alprazolam [Xanax] Med 01/18/25 08:46 Active
0.5 mg PO TIDPRN PRN Mental Health/Anxiety
Amlodipine [Norvasc] Med 01/18/25 08:00 Active
10 mg PO DAILY
Aspirin Low Dose EC [Aspir Low (Enteric Coated)] Med 01/18/25 08:00 Active
81 mg PO DAILY
Benzonatate [Tessalon Perles] Med 01/19/25 21:03 Active
100 mg PO TIDPRN PRN
Bisacodyl [Dulcolax] Med 01/17/25 22:18 Active
10 mg RECTAL [id number] PRN
Carvedilol [Coreg] Med 01/18/25 20:00 Active
25 mg PO BID
Dapagliflozin [Farxiga] Med 01/22/25 08:00 Active
10 mg PO DAILY
Docusate W/Senna [Senokot-S] Med 01/17/25 22:18 Active
1 tablet PO BIDPRN PRN
Ertapenem [Invanz] 1,000 mg Med 01/17/25 22:18 Active
0.9% Sodium Chloride [Nss] 50 ml
IV Q24H
Ethacrynic Acid [Edecrin] Med 01/18/25 08:00 Active
50 mg PO BID
Fluoxetine HCl [Prozac] Med 01/18/25 08:00 Active
40 mg PO DAILY
Flush (0.9% Sodium Chloride) [Flush (Nss)] Med 01/17/25 23:00 Active
See Dose Instructions IV PER PROTOCOL
Gabapentin [Neurontin] Med 01/18/25 08:00 Active
300 mg PO BID
Guaifenesin [Mucinex] Med 01/19/25 20:00 Active
600 mg PO Q12
HydrALAZINE [Apresoline] Med 01/18/25 00:00 Active
50 mg PO Q8
Loperamide [Imodium] Med 01/21/25 11:43 Active
2 mg PO Q6HPRN PRN
Pantoprazole [Protonix] Med 01/18/25 08:00 Active
40 mg PO DAILY
Phosphate Enema [Fleet Phosphate Enema-Adult] Med 01/17/25 22:18 Active
118 ml RECTAL DAILYPRN PRN if supp ineffective
Polyethylene Glycol Powder [Miralax] Med 01/17/25 22:18 Active
17 grams PO DAILYPRN PRN
Spironolactone [Aldactone] Med 01/18/25 08:00 Active
25 mg PO DAILY
Warfarin [Coumadin] Med 01/18/25 18:00 Active
1 mg PO QPM
Zolpidem Tartrate [Ambien] Med 01/18/25 08:46 Active
10 mg PO HSPRN PRN INSOMNIA INSOMNIA
�
Vitals:�
Temp Pulse Resp BP Pulse Ox
98.1 F 78 18 155/86 96
01/21/25 11:00 01/21/25 11:00 01/21/25 11:00 01/21/25 11:00 01/21/25 11:00
Height 5 ft 10 in
Actual Weight 73.9 kg
Body Mass Index (BMI) 23.4
�
Physical Exam:�
General Appearance/Observation: Well-developed, well-nourished individual in no apparent distress.�
Pain/Comfort Assessment: Denies�
Mood/Affect: Appropriate�
�
Integumentary/Operative Site:�healing sternal incision
�� Pressure Ulcer Evaluation: absent over heels.�
��
�� Other Type of Wound: absent�
��
�
Eyes: Conjunctiva/Lids: normal���� Pupils: pupils equal round and reactive to light and Accommodation�
Ears/Nose/Throat: oral mucosa moist,� throat clear.������������ Lips/Teeth/Gums: normal�
Neck: No muscle spasm or tenderness�
Cardiovascular: Heart: regular, murmur�
Pulses: dorsalis pedis 2+ bilaterally�
Respiratory: Respiratory Effort/Chest Expansion: normal������� Auscultation: mild coarse sound bilaterally�
Gastrointestinal: abdomen not tender, no distension, normal abdominal bowel sounds
Genitourinary: No Junior�
Extremities:�Edema: bilateral leg edema�Cyanosis: None�Trophic�changes: None
�
Neurology Exam:
Orientation: Alert, Oriented to self, Time, Place�
Memory: Intact for immediate medical concerns
Comprehension: Intact
Two step command: Intact
Naming: Intact
Cranial Nerves:
�� CNII:�Pupillary light reflex: Intact����Visual Field: Intact
�� CN III, IV, : Extraocular muscles: Intact�
�� CN V:�Facial Sensation�at�Forehead: Intact,�Maxilla: Intact,�Mandible: Intact
�� CN VII:�Facial movement: Symmetric
�� CN VIII:�Hearing: Normal
�� CN IX/X:�Speech & swallow: Normal,�Position of Uvula: Midline
�� CN XI:�Shoulder shrug: Symmetric
�� CN XII:�Tongue protrusion: Midline
Sensory:
�� Light touch: Intact in bilateral upper and lower extremities
��
Reflexes:
�� Biceps: 2+ bilaterally
�� Brachioradialis: 2+ bilaterally
�� Triceps: 2+ bilaterally
�� Patellar: 2+ bilaterally
�� Achilles: absent bilaterally
�� Babinski: Down going bilaterally
�� Clonus: None
�� José Luis: Negative bilaterally�
Cerebellar: Dysmetria/Ataxia: None�
Musculoskeletal:
Motor: (Manual muscle scale 0-5)�
Muscle SA EF WE EE FF FA HF KE DF EHL PF
Right� >3 >3 5 5 5 3 3 5 5 5
Left >3 >3 5 5 5 3 3 5 5 5
�
Tone: Normal in all extremities�
Range of Motion: Passively within normal limits in all extremities�
�
Lab Results
Labs
WBC 7.8 10^3/uL (4.8-10.8) 01/21/25 06:06
RBC 2.88 10^6/uL (4.70-6.10) L 01/21/25 06:06
Hgb 8.4 g/dL (13.0-18.0) L 01/21/25 06:06
Hct 24.6 % (39.0-52.0) L 01/21/25 06:06
MCV 85.4 fL (80.0-94.0) 01/21/25 06:06
MCH 29.2 pg (27.0-31.0) 01/21/25 06:06
MCHC 34.1 g/dL (33.0-37.0) 01/21/25 06:06
RDW 16.6 % (11.5-14.5) H 01/21/25 06:06
Plt Count 144 10^3/uL (130-400) 01/21/25 06:06
MPV 8.8 fL (7.4-10.4) 01/21/25 06:06
Abs Immat Gran (auto) 0.1 10^3/uL (0-0.05) H 01/17/25 17:46
Absolute Neuts (auto) 5.3 10^3/uL (1.4-6.5) 01/17/25 17:46
Absolute Lymphs (auto) 2.1 10^3/uL (1.2-3.4) 01/17/25 17:46
Absolute Monos (auto) 0.7 10^3/uL (0.1-0.6) H 01/17/25 17:46
Absolute Eos (auto) 0.0 10^3/uL (0-0.7) 01/17/25 17:46
Absolute Basos (auto) 0.1 10^3/uL (0-0.2) 01/17/25 17:46
Immature Gran % 1.3 % (0-0.5) H 01/17/25 17:46
Neutrophils % 64.0 % (42.2-75.2) 01/17/25 17:46
Lymphocytes % 25.9 % (20.5-51.1) 01/17/25 17:46
Monocytes % 8.0 % (1.7-9.3) 01/17/25 17:46
Eosinophils % 0.0 % (0-6) 01/17/25 17:46
Basophils % 0.8 % (0-2) 01/17/25 17:46
Nucleated RBC % 0 % (-) 01/17/25 17:46
ESR 86 mm/hour (0-20) H 01/21/25 06:06
PT 18.7 Sec (11.4-14.6) H 01/21/25 06:06
INR 1.54 01/21/25 06:06
APTT 40.1 Sec (23.4-35.0) H 01/17/25 18:36
Sodium 137 mmol/L (135-145) 01/21/25 06:06
Potassium 4.1 mmol/L (3.5-5.1) 01/21/25 06:06
Chloride 110 mmol/L (98-107) H 01/21/25 06:06
Carbon Dioxide 24 mmol/L (22-30) 01/21/25 06:06
BUN 23 mg/dl (9-20) H 01/21/25 06:06
Creatinine 1.5 mg/dL (0.7-1.3) H 01/21/25 06:06
Estimated Creat Clear 61 ml/min 01/21/25 06:06
eGFR 56.37 01/21/25 06:06
Glucose 101 mg/dl (70-99) H 01/21/25 06:06
Calcium 8.2 mg/dl (8.4-10.2) L 01/21/25 06:06
Total Bilirubin 0.5 mg/dl (0.2-1.3) 01/18/25 03:35
AST 17 U/L (17-59) 01/18/25 03:35
ALT < 10 U/L (0-50) 01/18/25 03:35
Alkaline Phosphatase 110 U/L (38-126) 01/18/25 03:35
Lactate Dehydrogenase Cancelled 01/17/25 22:18
Troponin I 0.083 ng/ml H* 01/17/25 17:46
C-Reactive Protein < 5.00 mg/L (0.0-10.00) 01/21/25 06:06
Dbs-G-Cptpsrgqryq Pept 9030 pg/ml 01/17/25 17:46
Total Protein 5.5 g/dl (6.3-8.2) L 01/21/25 06:06
Albumin Cancelled 01/21/25 06:06
Fluid pH 7.42 01/19/25 11:30
Fluid WBC 371 /CUMM 01/19/25 11:30
Fluid Mononuclear Cell 82.7 % 01/19/25 11:30
Fl Polymorphonucl Cell 17.3 % 01/19/25 11:30
Fluid Other Cells Not Reportable 01/19/25 11:30
Fluid Diff Path Review 01/19/25 11:30
Fluid Glucose 108 mg/dl 01/19/25 11:30
Fluid Total Protein 2.3 g/dl 01/19/25 11:30
Fluid Albumin < 1.0 g/dl 01/19/25 11:30
Fluid LDH 129 U/L 01/19/25 11:30
Fluid Amylase 45 U/L 01/19/25 11:30
Fluid Triglycerides < 30 mg/dl 01/19/25 11:30
Blood Type B POS 01/19/25 10:33
Antibody Screen (Negative) 01/19/25 10:33
Ab Screen Tube Method Negative 01/19/25 10:33
Crossmatch IS Only See Detail 01/19/25 10:33
Crossmatch (AHG) See Detail 01/19/25 10:33
�
Diagnostic Results:�as per HPI�
01/19/2025 CXR (portable): Interval left-sided thoracentesis without evidence of pneumothorax. Improved aeration of the left lower lung. Please see full dictation for additional detail. Film personally reviewed.
01/17/2025 CT chest (PE study): No PE seen. Moderate bilateral pleural effusions. Near complete atelectasis of the left lower lobe. Small focal area of atelectasis involving the posterior lingula. Subtle band shaped focus of decreased density
involving the superior spleen suggesting a focal area of splenic infarction. There is a small fluid collection posterior to the mid to inferior sternum which is likely postsurgical seroma. No evidence of a thickened enhancing wall to suggest
abscess. Please see full dictation for additional detail.
Echocardiogram 01/19/2025 shows hyperdynamic LVEF (>75%), RHONDA with mild MR, small pericardial effusion, normal-functioning well-seated mechanical aortic valve (mean gradient 17 mmHg); large pleural effusion.
-Thoracentesis for 850 mL on 01/19/25. Fluid is exudate (fluid LDH is > 2/3 serum ULN) by Light's criteria.
Assessment: 49-year-old man with recent aortic valve endocarditis complicated by septic emboli to the brain and spleen, s/p AoV replacement (#23 On-X mechanical SAVR), septal myomectomy and mitral valve chordae debridement with Dr. Denney on
12/27/24, complicated by subarachnoid hemorrhage, discharged 4 days ago and now readmitted with decompensated HFpEF.
Plan�
PM&R�PT/OT to increase independence with ADLs, improve balance, coordination, endurance, strength, mobility, community reintegration, decreased burden of care on others and family education.�
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 Per ID�possibly contaminant. To error on side of caution, treating both Ertapenem 1g IV q 24h x 6 weeks
(through 02/14/25)--> Follow weekly CBC with diff, CMP, ESR / CRP.
Mechanical aortic valve replacement:
- Was on Coumadin and aspirin.
Restarted Coumadin post-thoracentesis. INR 1.54 today. currently on Coumadin 1mg to be adjusted until therapeutic
Acute on chronic HFpEF
- Echo shows stable postop findings and EF of 75%
- currently on oral ethacrynic acid 50 mg twice a day, and Aldactone. Farxiga 10 mg daily
- on Coreg.
Post op new LBBB/IVCD, follow telemetry:-stable in SR
Acute anemia of chronic disease - stable Hgb around 7
-Acute blood loss anemia status post surgery ( HX Status post 5 units of PRBC on last admission)
-Recovered postop thrombocytopenia ( HX status post 2 units of platelet transfusion and 2 units of FFP)
- S/p 1 unit of PRBC transfusion on this admission. Continue to trend CBC.
-Heme test
HTN: Amlodipine 10 mg, Coreg 25 mg twice a day, hydralazine 50 mg 3 times daily . Carvedilol 25 twice a day .Avoid JUAN/ARB with recovering CORNELIO.
HLD: Statin�
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 However CKD 3A may be new baseline. Known to nephrology. Creatinine stable�
Psych/anxiety: Xanax as needed, fluoxetine, mirtazepine .Monitor mood, adjust medications as needed.�
Skin: monitor for pressure sores/rashes/lesions.�
Pain: acetaminophen as needed.�
History of opiate abuse: Was on Suboxone. Limited opioid.
Bowel/loose stool: Trial of Imodium.
Bladder: Time void, PVRs, PRN straight cath.�
GI Prophylaxis: Pantoprazole�
DVT Prophylaxis: Warfarin
Pulmonary: Incentive spirometry�
Safety: Continue to reinforce assistance with all transfers.�
Code Status:� Full code
Dispo�(date/plan/equipment needs): Home with family care.� Social history reviewed.�
�
Functional and Medical Goals:�Modified Independent with ADL�s, ambulation, transfers�
�
�
Discharge Destination:�Acute inpatient rehab once medically cleared
�
�
Thank you for allowing me to care for your patient. Please contact me with any questions or concerns.

Documented by User: Ricardo Fallon MD 01/21/25 22:41
Consultation - Medical
-
Referring Provider:�Donald William
Chief Complaint:�Debility, Aortic valve replacement
�
History of Present Illness:�49-year-old man with PMH of (Hypertension, diabetes type 2, nephrolithiasis, depression, hypertension, insomnia) was admitted to hospital with lower extremity edema, shortness of breath. Had a thoracentesis. Admission
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 s/p Aortic valve replacement (#23 On-X mechanical
SAVR), septal myomectomy and mitral valve chordae debridement by Dr. Denney on 12/27/24, complicated by CVA with subarachnoid hemorrhage conversion, postop anemia requiring 5 units of PRBC, 2 unit of platelets transfusion and 2 units of FFP. He was
discharged 4 days ago to [facility] for rehab and now readmitted with decompensated HFpEF.
Echocardiogram 01/19/2025 shows hyperdynamic LVEF (>75%), RHONDA with mild MR, small pericardial effusion, normal-functioning well-seated mechanical aortic valve (mean gradient 17 mmHg); large pleural effusion.
-Thoracentesis for 850 mL on 01/19/25. Fluid is exudate (fluid LDH is > 2/3 serum ULN) by Light's criteria. Patient on diuretic regimen. Dyspnea likely secondary to pleural effusion with improvement in oxygenation status post thoracentesis.
�
Past Medical History:�Hypertension, diabetes type 2, nephrolithiasis, subarachnoid hemorrhage, renal insufficiency,
Procedure History:�Mechanical aortic valve replacement, colonoscopy, kidney stenting
Family History:�Dad- from Brain cancer, Heart disease, Mom-breast cancer
�
Social History:�
Functional Level Premorbidly:�Independent with all activities�
Functional Level Currently:�Bed mobility�mod assist, transfers�mod assist, ambulated 40 feet into mahoney with minimal assist at slow gait speed but fairly steady gait throughout. Required close contact-guard, decreased bilateral foot clearance at
times. Eating�independent, grooming�set up, toileting, lower extremity self-care�max assist, toilet transfers�mod assist, bed mobility�mod assist,
�
Tobacco:�Denies�
Alcohol:�Denies�
Drug use:�Denies�
�
Lives with:�Spouse
24-hour assistance available:�Yes
Number of floors:�Multilevel
# steps to enter:�0
# steps to second floor: Full flight
Potential First floor set up:�yes, stays on the first floor
Driving:�yes
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
�
�
Allergies:�
Allergy/AdvReac Type Severity Reaction Status Date / Time
Sulfa (Sulfonamide Allergy Anaphylaxis Verified 01/17/25 17:21
Antibiotics)
sulfite Allergy Anaphylaxis Verified 01/17/25 17:21
�
Review of Systems:�
Constitutional: (x) abNormal _weak, weight loss
Eye: (x) Normal _
Ear/Nose/Throat: (x) Normal _
Respiratory: (x) Normal _
Cardiovascular: (x) abNormal _aortic valve endocarditis, CHF, shortness of breath
Gastrointestinal: (x) Normal _
Genitourinary: (x) Normal _
Musculoskeletal: (x) abNormal _bilateral leg weakness
Integumentary: (x) Normal _
Neurologic: (x) Normal _
Psychiatric: (x) abNormal _depression-job loss
Endocrine: (x) Normal _
Hematologic/Lymphatic: (x) Normal _
Allergic/Immunologic: (x) Normal _
�
Medications:�
Active Current Visit Medication List
Category Date Time Status
Alprazolam [Xanax] Med 01/18/25 08:46 Active
0.5 mg PO TIDPRN PRN Mental Health/Anxiety
Amlodipine [Norvasc] Med 01/18/25 08:00 Active
10 mg PO DAILY
Aspirin Low Dose EC [Aspir Low (Enteric Coated)] Med 01/18/25 08:00 Active
81 mg PO DAILY
Benzonatate [Tessalon Perles] Med 01/19/25 21:03 Active
100 mg PO TIDPRN PRN
Bisacodyl [Dulcolax] Med 01/17/25 22:18 Active
10 mg RECTAL [id number] PRN
Carvedilol [Coreg] Med 01/18/25 20:00 Active
25 mg PO BID
Dapagliflozin [Farxiga] Med 01/22/25 08:00 Active
10 mg PO DAILY
Docusate W/Senna [Senokot-S] Med 01/17/25 22:18 Active
1 tablet PO BIDPRN PRN
Ertapenem [Invanz] 1,000 mg Med 01/17/25 22:18 Active
0.9% Sodium Chloride [Nss] 50 ml
IV Q24H
Ethacrynic Acid [Edecrin] Med 01/18/25 08:00 Active
50 mg PO BID
Fluoxetine HCl [Prozac] Med 01/18/25 08:00 Active
40 mg PO DAILY
Flush (0.9% Sodium Chloride) [Flush (Nss)] Med 01/17/25 23:00 Active
See Dose Instructions IV PER PROTOCOL
Gabapentin [Neurontin] Med 01/18/25 08:00 Active
300 mg PO BID
Guaifenesin [Mucinex] Med 01/19/25 20:00 Active
600 mg PO Q12
HydrALAZINE [Apresoline] Med 01/18/25 00:00 Active
50 mg PO Q8
Loperamide [Imodium] Med 01/21/25 11:43 Active
2 mg PO Q6HPRN PRN
Pantoprazole [Protonix] Med 01/18/25 08:00 Active
40 mg PO DAILY
Phosphate Enema [Fleet Phosphate Enema-Adult] Med 01/17/25 22:18 Active
118 ml RECTAL DAILYPRN PRN if supp ineffective
Polyethylene Glycol Powder [Miralax] Med 01/17/25 22:18 Active
17 grams PO DAILYPRN PRN
Spironolactone [Aldactone] Med 01/18/25 08:00 Active
25 mg PO DAILY
Warfarin [Coumadin] Med 01/18/25 18:00 Active
1 mg PO QPM
Zolpidem Tartrate [Ambien] Med 01/18/25 08:46 Active
10 mg PO HSPRN PRN INSOMNIA INSOMNIA
�
Vitals:�
Temp Pulse Resp BP Pulse Ox
98.1 F 78 18 155/86 96
01/21/25 11:00 01/21/25 11:00 01/21/25 11:00 01/21/25 11:00 01/21/25 11:00
Height 5 ft 10 in
Actual Weight 73.9 kg
Body Mass Index (BMI) 23.4
�
Physical Exam:�
General Appearance/Observation: Well-developed, well-nourished male in no apparent distress.�
Pain/Comfort Assessment: Denies�
Mood/Affect: Appropriate�
�
Integumentary/Operative Site:�healing sternal incision
�� Pressure Ulcer Evaluation: absent over heels.�
�-Right arm PICC line intact, no erythema.��
�
Eyes: Conjunctiva/Lids: normal���� Pupils: pupils equal round and reactive to light and Accommodation�
Ears/Nose/Throat: oral mucosa moist,� throat clear.������������ Lips/Teeth/Gums: normal�
Neck: No muscle spasm or tenderness�
Cardiovascular: Heart: regular, murmur�
Pulses: dorsalis pedis 2+ bilaterally�
Respiratory: Respiratory Effort/Chest Expansion: normal������� Auscultation: mild coarse sound bilaterally�
Gastrointestinal: abdomen not tender, no distension, normal abdominal bowel sounds
Genitourinary: No Junior�
Extremities:�Edema: bilateral leg 2+ pitting edema worse distally�cyanosis: None�Trophic�changes: None
�
Neurology Exam:
Orientation: Alert, Oriented to self, Time, Place�
Memory: Intact for immediate medical concerns
Comprehension: Intact
Two step command: Intact
Naming: Intact
Cranial Nerves:
�� CNII:�Pupillary light reflex: Intact����Visual Field: Intact
�� CN III, IV, : Extraocular muscles: Intact�
�� CN V:�Facial Sensation�at�Forehead: Intact,�Maxilla: Intact,�Mandible: Intact
�� CN VII:�Facial movement: Symmetric
�� CN VIII:�Hearing: Normal
�� CN IX/X:�Speech & swallow: Normal,�Position of Uvula: Midline
�� CN XI:�Shoulder shrug: Symmetric
�� CN XII:�Tongue protrusion: Midline
Sensory:
�� Light touch: Intact in bilateral upper and lower extremities
��
Reflexes:
�� Biceps: 2+ bilaterally
�� Brachioradialis: 2+ bilaterally
�� Triceps: 2+ bilaterally
�� Patellar: 2+ bilaterally
�� Achilles: absent bilaterally
�� Babinski: Down going bilaterally
�� Clonus: None
�� José Luis: Negative bilaterally�
Cerebellar: Dysmetria/Ataxia: None�
Musculoskeletal: Motor: (Manual muscle scale 0-5)�
Muscle SA EF WE EE FF FA HF KE DF EHL PF
Right� >3 >3 5 >3 5 4 2 3 5 5 5
Left >3 >3 5 >3 5 4 2 3 5 5 5
�
Tone: Normal in all extremities�
Range of Motion: Passively within normal limits in all extremities�
�
Lab Results
Labs
WBC 7.8 10^3/uL (4.8-10.8) 01/21/25 06:06
RBC 2.88 10^6/uL (4.70-6.10) L 01/21/25 06:06
Hgb 8.4 g/dL (13.0-18.0) L 01/21/25 06:06
Hct 24.6 % (39.0-52.0) L 01/21/25 06:06
MCV 85.4 fL (80.0-94.0) 01/21/25 06:06
MCH 29.2 pg (27.0-31.0) 01/21/25 06:06
MCHC 34.1 g/dL (33.0-37.0) 01/21/25 06:06
RDW 16.6 % (11.5-14.5) H 01/21/25 06:06
Plt Count 144 10^3/uL (130-400) 01/21/25 06:06
MPV 8.8 fL (7.4-10.4) 01/21/25 06:06
Abs Immat Gran (auto) 0.1 10^3/uL (0-0.05) H 01/17/25 17:46
Absolute Neuts (auto) 5.3 10^3/uL (1.4-6.5) 01/17/25 17:46
Absolute Lymphs (auto) 2.1 10^3/uL (1.2-3.4) 01/17/25 17:46
Absolute Monos (auto) 0.7 10^3/uL (0.1-0.6) H 01/17/25 17:46
Absolute Eos (auto) 0.0 10^3/uL (0-0.7) 01/17/25 17:46
Absolute Basos (auto) 0.1 10^3/uL (0-0.2) 01/17/25 17:46
Immature Gran % 1.3 % (0-0.5) H 01/17/25 17:46
Neutrophils % 64.0 % (42.2-75.2) 01/17/25 17:46
Lymphocytes % 25.9 % (20.5-51.1) 01/17/25 17:46
Monocytes % 8.0 % (1.7-9.3) 01/17/25 17:46
Eosinophils % 0.0 % (0-6) 01/17/25 17:46
Basophils % 0.8 % (0-2) 01/17/25 17:46
Nucleated RBC % 0 % (-) 01/17/25 17:46
ESR 86 mm/hour (0-20) H 01/21/25 06:06
PT 18.7 Sec (11.4-14.6) H 01/21/25 06:06
INR 1.54 01/21/25 06:06
APTT 40.1 Sec (23.4-35.0) H 01/17/25 18:36
Sodium 137 mmol/L (135-145) 01/21/25 06:06
Potassium 4.1 mmol/L (3.5-5.1) 01/21/25 06:06
Chloride 110 mmol/L (98-107) H 01/21/25 06:06
Carbon Dioxide 24 mmol/L (22-30) 01/21/25 06:06
BUN 23 mg/dl (9-20) H 01/21/25 06:06
Creatinine 1.5 mg/dL (0.7-1.3) H 01/21/25 06:06
Estimated Creat Clear 61 ml/min 01/21/25 06:06
eGFR 56.37 01/21/25 06:06
Glucose 101 mg/dl (70-99) H 01/21/25 06:06
Calcium 8.2 mg/dl (8.4-10.2) L 01/21/25 06:06
Total Bilirubin 0.5 mg/dl (0.2-1.3) 01/18/25 03:35
AST 17 U/L (17-59) 01/18/25 03:35
ALT < 10 U/L (0-50) 01/18/25 03:35
Alkaline Phosphatase 110 U/L (38-126) 01/18/25 03:35
Lactate Dehydrogenase Cancelled 01/17/25 22:18
Troponin I 0.083 ng/ml H* 01/17/25 17:46
C-Reactive Protein < 5.00 mg/L (0.0-10.00) 01/21/25 06:06
Tww-[id number]-[id number] Pept 9030 pg/ml 01/17/25 17:46
Total Protein 5.5 g/dl (6.3-8.2) L 01/21/25 06:06
Albumin Cancelled 01/21/25 06:06
Fluid pH 7.42 01/19/25 11:30
Fluid WBC 371 /CUMM 01/19/25 11:30
Fluid Mononuclear Cell 82.7 % 01/19/25 11:30
Fl Polymorphonucl Cell 17.3 % 01/19/25 11:30
Fluid Other Cells Not Reportable 01/19/25 11:30
Fluid Diff Path Review 01/19/25 11:30
Fluid Glucose 108 mg/dl 01/19/25 11:30
Fluid Total Protein 2.3 g/dl 01/19/25 11:30
Fluid Albumin < 1.0 g/dl 01/19/25 11:30
Fluid LDH 129 U/L 01/19/25 11:30
Fluid Amylase 45 U/L 01/19/25 11:30
Fluid Triglycerides < 30 mg/dl 01/19/25 11:30
Blood Type B POS 01/19/25 10:33
Antibody Screen (Negative) 01/19/25 10:33
Ab Screen Tube Method Negative 01/19/25 10:33
Crossmatch IS Only See Detail 01/19/25 10:33
Crossmatch (AHG) See Detail 01/19/25 10:33
�
Diagnostic Results:�as per HPI�
01/19/2025 CXR (portable): Interval left-sided thoracentesis without evidence of pneumothorax. Improved aeration of the left lower lung. Please see full dictation for additional detail. Film personally reviewed.
01/17/2025 CT chest (PE study): No PE seen. Moderate bilateral pleural effusions. Near complete atelectasis of the left lower lobe. Small focal area of atelectasis involving the posterior lingula. Subtle band shaped focus of decreased density
involving the superior spleen suggesting a focal area of splenic infarction. There is a small fluid collection posterior to the mid to inferior sternum which is likely postsurgical seroma. No evidence of a thickened enhancing wall to suggest
abscess. Please see full dictation for additional detail.
Echocardiogram 01/19/2025 shows hyperdynamic LVEF (>75%), RHONDA with mild MR, small pericardial effusion, normal-functioning well-seated mechanical aortic valve (mean gradient 17 mmHg); large pleural effusion.
-Thoracentesis for 850 mL on 01/19/25. Fluid is exudate (fluid LDH is > 2/3 serum ULN) by Light's criteria.
Assessment:
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 Denney on 12/27/24,
complicated by subarachnoid hemorrhage, discharged 4 days ago and now readmitted with decompensated HFpEF.
Plan�
PM&R�PT/OT to increase independence with ADLs, improve balance, coordination, endurance, strength, mobility, community reintegration, decreased burden of care on others and family education.�
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 Per ID�possibly contaminant. To error on side of caution, treating both Ertapenem 1g IV q 24h x 6 weeks
(through 02/14/25)--> Follow weekly CBC with diff, CMP, ESR / CRP. Patient's is able to give antibiotics and patient willing to pay [id number]. It appears this can cost $200-$300 a week. Patient will likely need 1 to 2 weeks depending on
his hospital stay.
Mechanical aortic valve replacement:
- Was on Coumadin and aspirin.
Restarted Coumadin post-thoracentesis. INR 1.54 today. currently on Coumadin 1mg to be adjusted until therapeutic
Acute on chronic HFpEF
- Echo shows stable postop findings and EF of 75%
- currently on oral ethacrynic acid 50 mg twice a day, and Aldactone. Farxiga 10 mg daily
- on Coreg.
-Daily weights
Left pleural effusion: Had a left ultrasound-guided thoracentesis for 850 cc of serosanguineous pleural fluid. Patient notes his breathing is better afterward. Continue to monitor for reoccurrence.
Post op new LBBB/IVCD, follow telemetry:-stable in SR
Acute anemia of chronic disease - stable Hgb around 7
-Acute blood loss anemia status post surgery ( HX Status post 5 units of PRBC on last admission)
-Recovered postop thrombocytopenia ( HX status post 2 units of platelet transfusion and 2 units of FFP)
- S/p 1 unit of PRBC transfusion on this admission. Continue to trend CBC.
-Heme test
HTN: Amlodipine 10 mg, Coreg 25 mg twice a day, hydralazine 50 mg 3 times daily . Carvedilol 25 twice a day .Avoid JUAN/ARB with recovering CORNELIO.
HLD: Statin�
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 However CKD 3A may be new baseline. Known to nephrology. Creatinine stable�
Psych/anxiety: Xanax as needed, fluoxetine, mirtazepine .Monitor mood, adjust medications as needed.�
Skin: monitor for pressure sores/rashes/lesions.�
Pain: acetaminophen as needed.�
History of opiate abuse: Was on Suboxone. Limited opioid.
Bowel/loose stool: Trial of Imodium.
Bladder: Time void, PVRs, PRN straight cath.�
GI Prophylaxis: Pantoprazole�
DVT Prophylaxis: Warfarin, mechanical
Pulmonary: Incentive spirometry�
Safety: Continue to reinforce assistance with all transfers.�
Code Status:� Full code
Dispo�(date/plan/equipment needs): Home with family care.� Social history reviewed.�
Functional and Medical Goals:�Modified Independent with ADL�s, ambulation, transfers�
Discharge Destination:�Acute inpatient rehab once medically cleared in order to monitor his CHF status and monitor for worsening infection.
�
Attending Statement:
I saw and examined the patient today. Reviewed care plan with patient, therapy, nursing, and physician service center assistant. I agree with the above subjective and physical exam, and plan as documented by LINDY De Guzman with adjustments made as necessary. A
total of 60 minutes were spent with the patient preparing for the evaluation, obtaining history, performing examination and evaluation, counseling, data review, case management, care coordination, order schedule clerk, and EMR documentation.
�
Thank you for allowing me to care for your patient. Please contact me with any questions or concerns.
--- NOTE | 2025-01-21 14:26 | W.PN.HOSP.TC ---
Today's Communication/Plan
-
Await physiatry input
DC planning
Assessment / Plan
Assessment / Plan
ASSESSMENT & PLAN
Dyspnea likely secondary to pleural effusion-improved dyspnea and improving oxygenation status postthoracentesis. Transudative in nature based on lights criteria.
Acute on chronic HFpEF
- Echo shows stable postop findings and EF of 75%
- Continue with current diuretic regimen-currently on oral ethacrynic acid and Aldactone.
- on Coreg.
Acute on anemia of chronic disease - stable Hgb around 7
Acute blood loss anemia status post surgery ( HX Status post 5 units of PRBC on last admission)
Recovered postop thrombocytopenia ( HX status post 2 units of platelet transfusion and 2 units of FFP)
- S/p 1 unit of PRBC transfusion on this admission. Continue to trend CBC.
-Heme test
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
- Now s/p complex open heart surgery (12/27/2024) with mechanical AVR, debridement LVOT/MV structures
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
- Enterobacter cloacae also isolated from valve tissue (from enrichment broth only)
- cont IV ertapenem. Goal is continue antibiotics through 02/14/25
Mechanical aortic valve replacement:
- Was on Coumadin and aspirin.
Restarted Coumadin postthoracentesis. INR 1.54 today. Increase the dose of Coumadin today
Benign Hypertension
- on FREIGHT BRAKEMAN Amlodipine 10 mg
- on FREIGHT BRAKEMAN coreg 25mg bid
- on hydralazine 50mg tid (lowered for hypotensive episode)
- Avoiding JUAN/ARB with recovering CORNELIO
Post op new LBBB/IVCD, follow telemetry:
-stable in SR
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
However CKD3a may be new baseline
- Known to nephrology
-Creatinine stable
Tooth filling cap dislodgement
-outpatient follow up with dentist
Anxiety/depression
- continue Xanax as needed, fluoxetine, mirtazepine
History of opiate abuse
Was on Suboxone.
Limited opioid.
DVT Px: on Chr warfarin
Full code
Off of oxygen.
PT recommends acute rehab
Physiatry consulted
Medically stable for discharge to acute rehab when bed available
Anticipated Discharge: Within 24 hours
Subjective/Interval History
-
Date of Service: January 21, 2025
His stools are looser. Denies any abdominal pain. No nausea vomiting.
No fever or chills.
Denies any shortness of breath or chest pain.
Objective Data
-
Labs:
Laboratory Results
01/21/25
06:06
WBC 7.8
Hgb 8.4 L
Hct 24.6 L
Plt Count 144
PT 18.7 H
INR 1.54
Sodium 137
Potassium 4.1
Chloride 110 H
Carbon Dioxide 24
BUN 23 H
Creatinine 1.5 H
Glucose 101 H
Calcium 8.2 L
Vital Signs:
Vital Signs
Temp Pulse Resp BP Pulse Ox
98.1 F 78 18 155/86 96
01/21/25 11:00 01/21/25 11:00 01/21/25 11:00 01/21/25 11:00 01/21/25 11:00
I&O
01/20/25 01/21/25 01/22/25
06:59 06:59 06:59
Intake Total 550 / 550 480 / 480
Output Total 1450 / 1450 600 / 600
Balance -900 / -900 -120 / -120
Physical Exam
-
General: Comfortable
Respiratory: Non Labored Respirations; Negative Accessory Resp Muscle Use
Cardiac: Regular Rhythm, S1/S2 and Other (prosthetic valve sound heard)
GI: Soft and Nontender
Neuro: AO x 3
Psych: Calm
Data Reviewed
-
Labs: Labs Reviewed by me
[2025-01-21 15:29] LABS: Prealbumin (Transthyretin) 28.5 mg/dl (17.6-36.0)
--- NOTE | 2025-01-21 16:18 | CM ---
CM following for discharge to [facility]. Pt is uninsured, [facility] is working on insurance coverage.
CM asked to pagan dapagliflozin which is $631 for a 30 day supply. TT sent to Dr. Carrillo to make him aware of the cost.
Call placed to Yany [phone] to check on status of MA application. Yany advised that the request was being expedited, and she is trying to determine why things are moving so slowly.
CM will continue to follow.
[2025-01-21] MEDS: COUMADIN PO (17:18)
[2025-01-21] MEDS: COUMADIN 1.5 MG PO (18:45)
[2025-01-21] MEDS: AMBIEN 10 MG PO (23:22)
[2025-01-22 00:05] LABS: Urine Character Clear (Clear)
[2025-01-22 00:47] LABS: Urine Red Blood Cell 50-60 /HPF (0-2)
[2025-01-22 03:00] VITALS: BP 125/75
[2025-01-22 04:23] LABS: INR 1.48; PT 18.4 Sec (11.4-14.6)
[2025-01-22 04:45] VITALS: BMI 23.7
[2025-01-22 07:00] VITALS: BP 156/98
--- NOTE | 2025-01-22 07:34 | W.PN.CD ---
Today's Communication / Plan
-
D/C dapagliflozin (cost prohibitive).
Start lisinopril 2.5 mg daily.
Renal/bladder US.
Outpatient nephrology/urology evaluation.
Disposition to acute rehab.
Impression / Plan
-
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 Denney on
12/27/24, complicated by subarachnoid hemorrhage, discharged 4 days ago and now readmitted with decompensated HFpEF.
#HFpEF:
-Acute on chronic.
-Echocardiogram 01/19/2025 shows hyperdynamic LVEF (>75%), RHONDA with mild MR, small pericardial effusion, normal-functioning well-seated mechanical aortic valve (mean gradient 17 mmHg); large pleural effusion.
-Thoracentesis for 850 mL on 01/19/25. Pleural fluid is exudate (fluid LDH is > 2/3 serum ULN) by Light's criteria, but fluid albumin < 1.0 - consistent with transudate.
-Appears intravascularly euvolemic. His LE edema could be due to poor oncotic pressure.
-GDMT as hemodynamics/renal function will tolerate:
-Diuretics: Maintain ethacrynic acid 50 mg BID.
-Beta ck: Carvedilol 25 mg BID.
-ACEI/ARB/ARNi: Start lisinopril 2.5 mg daily.
-MRA: Spironolactone 25 mg daily.
-SGLT2i: Cost prohibitive.
#Renal failure
-Appears to be chronic (though not technically 3 months).
-UA shows 3+ hematuria with 50-60 RBC's (does not discuss casts), 3+ proteinuria/albuminuria. Urine protein/creatinine 1.5.
-Check renal/bladder US.
-This will require outpatient nephrology/urology evaluation.
-Start low dose lisinopril to mitigate proteinuria.
-Monitor renal function with addition of ACEI.
#Deconditioning
-Acute.
-PT/OT following.
-Disposition recommendation for acute rehab.
#Anemia
-Chronic, appears to be AoCD.
-Hgb dropped to 7.1. One unit of PRBC's given with subsequent furosemide (01/19/2025).
-Hbg has improved to 8.4.
#Strep mutans aortic valve endocarditis
-Complicated by septic emboli.
-s/p aortic valve replacement (#23 On-X mechanical SAVR), septal myomectomy and debridement of the mitral chordae.
-Post operative course complicated by hemorrhagic conversion, CORNELIO, & splenic infarct.
-Stable on echocardiogram.
-ESR stable from prior (86 <-- 87 <-- 58). CRP has normalized (< 5.00).
-Continue ertapenem through 02/14/2025 per ID.
-Goal INR 2.5 for 3 months post op, then 1.5-2.0.
#Hypertension
-Chronic, stable.
-Continue carvedilol, amlodipine, hydralazine, spironolactone.
-Adding lisinopril 2.5 mg daily (more for proteinuria).
#LBBB/IVCD:
-Stable.
#History of opioid abuse
-History of suboxone use.
-Psychiatry has signed off.
Subjective/Interval History:
Weight is up 1 kg.
Dapagliflozin is cost prohibitive.
BP better controlled.
Urine protein/creatinine ratio 1.5.
Transthyretin is normal (not malnourished).
Hematuria with RBC's seen on UA.
DATA:
Thoracentesis, 01/19/2025:
IMPRESSION: Successful ultrasound-guided thoracentesis, yielding 850 cc of serosanguineous pleural fluid.
TTE, 01/17/2025:
CONCLUSIONS
-Estimated left ventricular ejection fraction is greater than 75%, by visual
assessment. Wall motion is consistent with postoperative state. No specific
regional wall motion abnormalities are noted.
-Normal right ventricular size and function.
-Thickened mitral valve leaflets which appear to be open normally, but mildly
elevated mean gradient of 5 mmHg. Systolic anterior motion (RHONDA) of the
anterior leaflet of the mitral valve with mild mitral regurgitation.
-Well-seated 23 mm On-X mechanical aortic valve replacement; peak peak/mean
gradients across the valve are 29/17 mmHg. Trace aortic regurgitation.
-Mild to moderate tricuspid regurgitation. Estimated pulmonary artery pressure
of 45-50 mmHg.
-Small pericardial effusion without evidence of hemodynamic compromise.
-Large pleural effusion present.
Physical Exam
Vital Signs/Labs
Vital Signs
Temp Pulse Resp BP Pulse Ox
36.8 C 75 16 125/75 96
01/22/25 03:00 01/22/25 03:00 01/22/25 03:00 01/22/25 03:00 01/22/25 03:00
01/20/25 01/21/25 01/22/25
11:59 11:59 11:59
Actual Weight 73.9 kg 74.979 kg
01/21/25 06:06
01/21/25 06:06
PT 18.4 Sec (11.4-14.6) H 01/22/25 04:01
INR 1.48 01/22/25 04:01
APTT 40.1 Sec (23.4-35.0) H 01/17/25 18:36
01/17/25
17:46
[id number] Pept 9030
Physical Exam
Constitutional: No acute distress and Comfortable
EENT: Anicteric and Moist mucous membranes
Cardiovascular: Rhythm & rate is regular, JVD pressure is normal, Pedal edema present, S1S2 is normal (S2 is crisp and mechanical.) and Murmur/rub/gallop absent
Respiratory: Respiratory effort normal, Lungs clear to auscul., Wheeze Absent, Crackles Absent and Rhonchi Absent
GI: Soft, Distention absent, Flat, Non tender, Normal bowel sounds and Distention present
Neuro/Psych: AO x 3
Data Reviewed
-
Date of Service: January 22, 2025
Medical Decision Making: Reviewed Test Results, Tests Ordered, Independent Historian Assessment and Test Interpretation
EKG: Tracing Personally Visualized and interpreted and Report Reviewed by me
Echo: Report Reviewed by me
X-Ray/CT/US/MRI/NUC/PET: Image Personally Visualized and interpreted and Report Reviewed by me
Labs: Labs Reviewed by me
Old Records: Reviewed
[2025-01-22] MEDS: FARXIGA 10 MG PO (08:47)
[2025-01-22] MEDS: PROTONIX 40 MG PO (08:47)
[2025-01-22] MEDS: COREG 25 MG PO ×2 (08:48→22:02)
[2025-01-22] MEDS: NEURONTIN 300 MG PO ×2 (08:48→22:03)
[2025-01-22] MEDS: PROZAC 40 MG PO (08:48)
[2025-01-22] MEDS: NORVASC 10 MG PO (08:48)
[2025-01-22] MEDS: EDECRIN 50 MG PO ×2 (08:48→22:02)
[2025-01-22] MEDS: MUCINEX 600 MG PO ×2 (08:48→22:03)
[2025-01-22] MEDS: ALDACTONE 25 MG PO (08:48)
[2025-01-22] MEDS: APRESOLINE 50 MG PO ×2 (08:48→17:29)
[2025-01-22] MEDS: ASPIR LOW (ENTERIC COATED) 81 MG PO (08:48)
--- NOTE | 2025-01-22 09:30 | PTCARENOTE ---
Pt fall reported to RN by PCT. Patient fell to his knees when getting up to use the restroom. Pt reports he has some weakness at the time of fall and also tripped over a gown that had fallen from his bed when he stood up. Pt reports no pain. Skin
intact. No signs of bruising or bleeding. MD made aware via TT. Will continue to monitor.
--- NOTE | 2025-01-22 10:40 | W.PN.ID1 ---
Date of Service
Date of Service: January 22, 2025
Today's Communication
Continue antibiotics
Assessment / Plan
Continue antibiotics. See below�
Assessment / Plan
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
- Enterobacter cloacae also isolated from valve tissue (from enrichment broth only)
Suspected septic emboli to the brain
Subarachnoid hemorrhage
Leukocytosis; resolved
Renal insufficiency
Elevated ESR, CRP
- ESR stable, CRP normalized.
Pleural effusion
HTN
DM type II
Nephrolithiasis
Recommendations:
Patient status post valve replacement with mechanical AVR (12/27/2024)
Aortic valve cx: Enterobacter cloacae (on enrichment broth only) - possibly contaminant.
- To error on side of caution, treating both S. mutans and E. cloacae isolates.
-> Continue Ertapenem 1g IV q 24h x 6 weeks (through 02/14/25)
--> Follow weekly CBC with diff, CMP, ESR / CRP.
����������������������������������������������������������
Chief Complaint
-: Other (Endocarditis)
Subjective / Review of Systems
Review of Systems: No Fever
Vital Signs / Physical Exam
Vital Signs
Vital Signs
Temp Pulse Resp BP Pulse Ox
98.2 F 79 16 156/98 97
01/22/25 07:00 01/22/25 07:00 01/22/25 07:00 01/22/25 07:00 01/22/25 07:00
Physical Exam
Constitutional: No Acute Distress, Chronically Ill and Non-toxic
Eyes: No Conjunctival Hemorrhage and Sclera Anicteric
Cardiovascular: S1/S2 and Other (Click); Negative S3/S4
Pulmonary: Clear; Negative Wheezes or Rales
Gastrointestinal: Soft and Non Tender
Skin: Negative Rash or Jaundice
Psychological: Calm
Objective Data
Lab Data
Lab Results
01/21/25 06:06
01/21/25 06:06
ESR 86 mm/hour (0-20) H 01/21/25 06:06
PT 18.4 Sec (11.4-14.6) H 01/22/25 04:01
INR 1.48 01/22/25 04:01
APTT 40.1 Sec (23.4-35.0) H 01/17/25 18:36
Estimated Creat Clear 61 ml/min 01/21/25 06:06
Total Bilirubin 0.5 mg/dl (0.2-1.3) 01/18/25 03:35
AST 17 U/L (17-59) 01/18/25 03:35
ALT < 10 U/L (0-50) 01/18/25 03:35
Alkaline Phosphatase 110 U/L (38-126) 01/18/25 03:35
C-Reactive Protein < 5.00 mg/L (0.0-10.00) 01/21/25 06:06
Most recent labs reviewed.
Micro Results:
01/19/25 11:30 Body Fluid Culture - Preliminary
Pleural Fluid No Growth After 48 Hours
Gram Stain - Preliminary
01/17/25 23:30 MRSA Screen - Final
Nose No Methicillin Resistant Staphylococcus aureus isolated.
Imaging:
01/19/2025 CXR (portable): Interval left-sided thoracentesis without evidence of pneumothorax. Improved aeration of the left lower lung. Please see full dictation for additional detail. Film personally reviewed.
01/17/2025 CT chest (PE study): No PE seen. Moderate bilateral pleural effusions. Near complete atelectasis of the left lower lobe. Small focal area of atelectasis involving the posterior lingula. Subtle band shaped focus of decreased density
involving the superior spleen suggesting a focal area of splenic infarction. There is a small fluid collection posterior to the mid to inferior sternum which is likely postsurgical seroma. No evidence of a thickened enhancing wall to suggest
abscess. Please see full dictation for additional detail.
--- NOTE | 2025-01-22 10:42 | W.PN.HOSP.TC ---
Today's Communication/Plan
-
DC planning
Assessment / Plan
Assessment / Plan
ASSESSMENT & PLAN
Dyspnea likely secondary to pleural effusion-improved dyspnea and improving oxygenation status postthoracentesis. Transudative in nature based on lights criteria.
Acute on chronic HFpEF
- Echo shows stable postop findings and EF of 75%
- Continue with current diuretic regimen-currently on oral ethacrynic acid and Aldactone.
- on Coreg.
- Now initiated on Farxiga
Acute on anemia of chronic disease - stable Hgb around 7
Acute blood loss anemia status post surgery ( HX Status post 5 units of PRBC on last admission)
Recovered postop thrombocytopenia ( HX status post 2 units of platelet transfusion and 2 units of FFP)
- S/p 1 unit of PRBC transfusion on this admission. Continue to trend CBC.
-Heme test
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
- Now s/p complex open heart surgery (12/27/2024) with mechanical AVR, debridement LVOT/MV structures
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
- Enterobacter cloacae also isolated from valve tissue (from enrichment broth only)
- cont IV ertapenem. Goal is continue antibiotics through 02/14/25
Mechanical aortic valve replacement:
- Was on Coumadin and aspirin.
Restarted Coumadin postthoracentesis. INR 1.4 today. Increased the dose of Coumadin today. Bridge with Lovenox til INR is therapeutic
Benign Hypertension
- on ASSEMBLER DC FIELD RING Amlodipine 10 mg
- on ASSEMBLER DC FIELD RING coreg 25mg bid
- on hydralazine 50mg tid (lowered for hypotensive episode)
- Avoiding JUAN/ARB with recovering CORNELIO
Post op new LBBB/IVCD, follow telemetry:
-stable in SR
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
However CKD3a may be new baseline
- Known to nephrology
-Creatinine stable
Tooth filling cap dislodgement
-outpatient follow up with dentist
Anxiety/depression
- continue Xanax as needed, fluoxetine, mirtazepine
History of opiate abuse
Was on Suboxone.
Limited opioid.
DVT Px: on Chr warfarin
Full code
Off of oxygen.
PT recommends acute rehab
Physiatry input noted
Medically stable for discharge to acute rehab when bed available
Anticipated Discharge: Today
Subjective/Interval History
-
Date of Service: January 22, 2025
He went down on his knees when he was walking to the bathroom because he felt very weak. He says he is no muscle strength at all in his quads. Denies any pain in the legs or anywhere. Denies any dizziness.
Denies shortness of breath. No chest pain.
Denies any nausea vomiting. No fever or chills.
Objective Data
-
Labs:
Laboratory Results
01/22/25
04:01
PT 18.4 H
INR 1.48
Vital Signs:
Vital Signs
Temp Pulse Resp BP Pulse Ox
98.2 F 79 16 156/98 97
01/22/25 07:00 01/22/25 07:00 01/22/25 07:00 01/22/25 07:00 01/22/25 07:00
I&O
01/21/25 01/22/25 01/23/25
06:59 06:59 06:59
Intake Total 480 / 480 720 / 720 1440 / 1440
Output Total 600 / 600
Balance -120 / -120 720 / 720 1440 / 1440
Physical Exam
-
General: Comfortable
Respiratory: Non Labored Respirations; Negative Accessory Resp Muscle Use
Cardiac: Regular Rhythm and S1/S2
GI: Soft
Musculoskeletal: Other (Painless ROM in knees and hips)
Neuro: AO x 3
Data Reviewed
-
Labs: Labs Reviewed by me
[2025-01-22 11:00] VITALS: BP 126/78
[2025-01-22] MEDS: ZESTRIL 2.5 MG PO (11:37)
[2025-01-22] MEDS: LOVENOX 70 MG SC ×2 (11:37→22:05)
[2025-01-22] MEDS: IMODIUM 2 MG PO (12:46)
[2025-01-22 13:13] VITALS: BP 118/74; PULSE 71; O2SAT 97
[2025-01-22 15:00] VITALS: BP 126/75
[2025-01-22] MEDS: XANAX 0.5 MG PO (16:51)
[2025-01-22] MEDS: COUMADIN 5 MG PO (17:30)
[2025-01-22] MEDS: INVANZ 60 MG IV (22:03)
[2025-01-22] MEDS: AMBIEN 10 MG PO (22:47)
[2025-01-22 23:00] VITALS: BP 146/88
[2025-01-23] MEDS: APRESOLINE 50 MG PO ×4 (00:13→23:22)
[2025-01-23 05:49] VITALS: BMI 23.7
[2025-01-23 06:42] LABS: INR 1.99; PT 23.1 Sec (11.4-14.6)
--- NOTE | 2025-01-23 06:47 | W.PN.CD ---
Today's Communication / Plan
-
Outpatient nephrology/urology follow up.
Monitor renal function with addition of ACEI.
Discharge planning for acute rehab.
Impression / Plan
-
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 Denney on
12/27/24, complicated by subarachnoid hemorrhage, discharged 4 days ago and now readmitted with decompensated HFpEF.
#HFpEF:
-Acute on chronic.
-Echocardiogram 01/19/2025 shows hyperdynamic LVEF (>75%), RHONDA with mild MR, small pericardial effusion, normal-functioning well-seated mechanical aortic valve (mean gradient 17 mmHg); large pleural effusion.
-Thoracentesis for 850 mL on 01/19/25. Pleural fluid is exudate (fluid LDH is > 2/3 serum ULN) by Light's criteria, but fluid albumin < 1.0 - consistent with transudate.
-Appears intravascularly euvolemic. His LE edema could be due to poor oncotic pressure.
-GDMT as hemodynamics/renal function will tolerate:
-Diuretics: Maintain ethacrynic acid 50 mg BID.
-Beta ck: Carvedilol 25 mg BID.
-ACEI/ARB/ARNi: Start lisinopril 2.5 mg daily.
-MRA: Spironolactone 25 mg daily.
-SGLT2i: Cost prohibitive.
#Renal failure
-Appears to be chronic (though not technically 3 months).
-UA shows 3+ hematuria with 50-60 RBC's (does not discuss casts), 3+ proteinuria/albuminuria. Urine protein/creatinine 1.5.
-Renal/bladder US shows some diffuse bladder thickening without hydronephrosis and evidence of prior splenic infarct.
-Bladder thickening/proteinuria will require outpatient nephrology/urology evaluation.
-Start low dose lisinopril to mitigate proteinuria.
-Monitor renal function with addition of ACEI.
#Deconditioning
-Acute.
-PT/OT following.
-Disposition recommendation for acute rehab.
#Anemia
-Chronic, appears to be AoCD.
-Hgb dropped to 7.1. One unit of PRBC's given with subsequent furosemide (01/19/2025).
-Hbg has improved to 8.4.
#Strep mutans aortic valve endocarditis
-Complicated by septic emboli.
-s/p aortic valve replacement (#23 On-X mechanical SAVR), septal myomectomy and debridement of the mitral chordae.
-Post operative course complicated by hemorrhagic conversion, CORNELIO, & splenic infarct.
-Stable on echocardiogram.
-ESR stable from prior (86 <-- 87 <-- 58). CRP has normalized (< 5.00).
-Continue ertapenem through 02/14/2025 per ID.
-Goal INR 2.5 for 3 months post op, then 1.5-2.0.
#Hypertension
-Chronic, stable.
-Continue carvedilol, amlodipine, hydralazine, spironolactone.
-Adding lisinopril 2.5 mg daily (more for proteinuria).
#LBBB/IVCD:
-Stable.
#History of opioid abuse
-History of suboxone use.
-Psychiatry has signed off.
Subjective/Interval History:
Weight stable.
US shows bladder thickening, non-obstructive nephrolithiasis, evidence of prior splenic infarct.
He suffered a mechanical fall yesterday due to a gown that had fallen on the floor.
He otherwise feels well.
DATA:
Renal/Bladder US, 01/22/2025:
IMPRESSION:
1. No sonographic evidence for hydronephrosis in either kidney.
2. 1.2 cm nonobstructing left intrarenal calculus.
3. Mild diffuse urinary bladder wall thickening.
4. Small bilateral pleural effusions.
5. 4.9 cm circumscribed partially solid and partially cystic lesion in the spleen. Diagnostic possibilities are (1) necrotic cystic changes from an acute or subacute splenic infarction or (2) a benign primary splenic tumor.
Thoracentesis, 01/19/2025:
IMPRESSION: Successful ultrasound-guided thoracentesis, yielding 850 cc of serosanguineous pleural fluid.
TTE, 01/17/2025:
CONCLUSIONS
-Estimated left ventricular ejection fraction is greater than 75%, by visual
assessment. Wall motion is consistent with postoperative state. No specific
regional wall motion abnormalities are noted.
-Normal right ventricular size and function.
-Thickened mitral valve leaflets which appear to be open normally, but mildly
elevated mean gradient of 5 mmHg. Systolic anterior motion (RHONDA) of the
anterior leaflet of the mitral valve with mild mitral regurgitation.
-Well-seated 23 mm On-X mechanical aortic valve replacement; peak peak/mean
gradients across the valve are 29/17 mmHg. Trace aortic regurgitation.
-Mild to moderate tricuspid regurgitation. Estimated pulmonary artery pressure
of 45-50 mmHg.
-Small pericardial effusion without evidence of hemodynamic compromise.
-Large pleural effusion present.
Physical Exam
Vital Signs/Labs
Vital Signs
Temp Pulse Resp BP Pulse Ox
37.1 C 80 18 146/88 98
01/22/25 23:00 01/22/25 23:00 01/22/25 23:00 01/22/25 23:00 01/22/25 23:00
01/21/25 01/22/25 01/23/25
11:59 11:59 11:59
Actual Weight 74.979 kg 74.899 kg
01/21/25 06:06
01/21/25 06:06
PT 18.4 Sec (11.4-14.6) H 01/22/25 04:01
INR 1.48 01/22/25 04:01
APTT 40.1 Sec (23.4-35.0) H 01/17/25 18:36
01/17/25
17:46
[id number] Pept 9030
Physical Exam
Constitutional: No acute distress and Comfortable
EENT: Anicteric and Moist mucous membranes
Cardiovascular: Rhythm & rate is regular, JVD pressure is normal, Pedal edema present, S1S2 is normal (S2 is crisp and mechanical.) and Murmur/rub/gallop absent
Respiratory: Respiratory effort normal, Lungs clear to auscul., Wheeze Absent, Crackles Absent and Rhonchi Absent
GI: Soft, Distention absent, Flat, Non tender and Normal bowel sounds
Neuro/Psych: AO x 3
Data Reviewed
-
Date of Service: January 23, 2025
Medical Decision Making: Reviewed Test Results and Independent Historian Assessment
EKG: Tracing Personally Visualized and interpreted and Report Reviewed by me
Echo: Report Reviewed by me
X-Ray/CT/US/MRI/NUC/PET: Image Personally Visualized and interpreted and Report Reviewed by me
Medical Tests (PFT, Pathology etc): Image Personally Visualized and interpreted
Labs: Labs Reviewed by me
Old Records: Reviewed
[2025-01-23 07:52] VITALS: BP 151/88
[2025-01-23] MEDS: EDECRIN 50 MG PO ×2 (08:21→22:16)
[2025-01-23] MEDS: ASPIR LOW (ENTERIC COATED) 81 MG PO (08:21)
[2025-01-23] MEDS: COREG 25 MG PO ×2 (08:22→22:16)
[2025-01-23] MEDS: PROTONIX 40 MG PO (08:22)
[2025-01-23] MEDS: NORVASC 10 MG PO (08:22)
[2025-01-23] MEDS: MUCINEX 600 MG PO ×2 (08:22→22:16)
[2025-01-23] MEDS: ALDACTONE 25 MG PO (08:22)
[2025-01-23] MEDS: PROZAC 40 MG PO (08:22)
[2025-01-23] MEDS: NEURONTIN 300 MG PO ×2 (08:22→22:17)
[2025-01-23] MEDS: ZESTRIL 2.5 MG PO (08:22)
--- NOTE | 2025-01-23 09:47 | CM ---
Per Freda @ [facility]; pending bed availability, [facility] should be able to accept this patient. Per Freda, patient has an active Medicaid # [id number]
Freda spoke with Latricia @ [facility] to discuss post acute rehab needs; after [place] stay patient could go home with home health service with [facility] to complete the antibiotic course.
Attending notified
--- NOTE | 2025-01-23 10:03 | W.PN.ID1 ---
Date of Service
Date of Service: January 23, 2025
Today's Communication
Continue antibiotics. See below�
Assessment / Plan
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
- Enterobacter cloacae also isolated from valve tissue (from enrichment broth only)
Suspected septic emboli to the brain
Subarachnoid hemorrhage
Leukocytosis; resolved
Renal insufficiency
Elevated ESR, CRP
- ESR stable, CRP normalized.
Pleural effusion
HTN
DM type II
Nephrolithiasis
Recommendations:
Patient status post valve replacement with mechanical AVR (12/27/2024)
Aortic valve cx: Enterobacter cloacae (on enrichment broth only) - possibly contaminant.
- To error on side of caution, treating both S. mutans and E. cloacae isolates.
-> Continue Ertapenem 1g IV q 24h x 6 weeks (through 02/14/25)
--> Follow weekly CBC with diff, CMP, ESR / CRP.
����������������������������������������������������������
Chief Complaint
-: Other (Endocarditis)
Subjective / Review of Systems
Review of Systems: No Fever and No Chills
Vital Signs / Physical Exam
Vital Signs
Vital Signs
Temp Pulse Resp BP Pulse Ox
98.9 F 85 17 151/88 95
01/23/25 07:52 01/23/25 07:52 01/23/25 07:52 01/23/25 07:52 01/23/25 07:52
Physical Exam
Constitutional: No Acute Distress, Chronically Ill and Non-toxic
Eyes: No Conjunctival Hemorrhage and Sclera Anicteric
Cardiovascular: S1/S2 and Other (Click); Negative S3/S4
Pulmonary: Clear; Negative Wheezes or Rales
Gastrointestinal: Soft and Non Tender
Extremities: Edema; Negative Cyanosis or Erythema
Skin: Negative Rash or Jaundice
Neurological: Awake and Alert
Psychological: Calm
Objective Data
Lab Data
Lab Results
01/21/25 06:06
01/21/25 06:06
ESR 86 mm/hour (0-20) H 01/21/25 06:06
PT 23.1 Sec (11.4-14.6) H 01/23/25 05:57
INR 1.99 01/23/25 05:57
APTT 40.1 Sec (23.4-35.0) H 01/17/25 18:36
Estimated Creat Clear 61 ml/min 01/21/25 06:06
Total Bilirubin 0.5 mg/dl (0.2-1.3) 01/18/25 03:35
AST 17 U/L (17-59) 01/18/25 03:35
ALT < 10 U/L (0-50) 01/18/25 03:35
Alkaline Phosphatase 110 U/L (38-126) 01/18/25 03:35
C-Reactive Protein < 5.00 mg/L (0.0-10.00) 01/21/25 06:06
Most recent labs reviewed.
Micro Results:
01/19/25 11:30 Body Fluid Culture - Final
Pleural Fluid No Growth After 72 Hours
Gram Stain - Final
01/17/25 23:30 MRSA Screen - Final
Nose No Methicillin Resistant Staphylococcus aureus isolated.
Imaging:
01/19/2025 CXR (portable): Interval left-sided thoracentesis without evidence of pneumothorax. Improved aeration of the left lower lung. Please see full dictation for additional detail. Film personally reviewed.
01/17/2025 CT chest (PE study): No PE seen. Moderate bilateral pleural effusions. Near complete atelectasis of the left lower lobe. Small focal area of atelectasis involving the posterior lingula. Subtle band shaped focus of decreased density
involving the superior spleen suggesting a focal area of splenic infarction. There is a small fluid collection posterior to the mid to inferior sternum which is likely postsurgical seroma. No evidence of a thickened enhancing wall to suggest
abscess. Please see full dictation for additional detail.
[2025-01-23] MEDS: XANAX 0.5 MG PO ×2 (10:18→18:33)
--- NOTE | 2025-01-23 10:58 | W.PN.HOSP.TC ---
Today's Communication/Plan
-
Medically stable for discharge
Ongoing disposition efforts
Assessment / Plan
Assessment / Plan
ASSESSMENT & PLAN
Dyspnea likely secondary to pleural effusion-improved dyspnea and improving oxygenation status postthoracentesis. Transudative in nature based on lights criteria.
Acute on chronic HFpEF
- Echo shows stable postop findings and EF of 75%
- Continue with current diuretic regimen-currently on oral ethacrynic acid and Aldactone.
- on Coreg.
- Now initiated on Farxiga
Acute on anemia of chronic disease - stable Hgb around 7
Acute blood loss anemia status post surgery ( HX Status post 5 units of PRBC on last admission)
Recovered postop thrombocytopenia ( HX status post 2 units of platelet transfusion and 2 units of FFP)
- S/p 1 unit of PRBC transfusion on this admission. Continue to trend CBC.
-Heme test pending.HH stable.
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
- Now s/p complex open heart surgery (12/27/2024) with mechanical AVR, debridement LVOT/MV structures
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
- Enterobacter cloacae also isolated from valve tissue (from enrichment broth only)
- cont IV ertapenem. Goal is continue antibiotics through 02/14/25
Mechanical aortic valve replacement:
- Was on Coumadin and aspirin.
Restarted Coumadin postthoracentesis. INR 1.99 today. CW Bridge with Lovenox til INR is therapeutic. Coumadin dosed for today
Benign Hypertension
- on MAIL CARRIERS SUPERVISOR Amlodipine 10 mg
- on MAIL CARRIERS SUPERVISOR coreg 25mg bid
- on hydralazine 50mg tid (lowered for hypotensive episode)
- Avoiding JUAN/ARB with recovering CORNELIO
Post op new LBBB/IVCD, follow telemetry:
-stable in SR
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
However CKD3a may be new baseline
- Known to nephrology
-Creatinine stable
Tooth filling cap dislodgement
-outpatient follow up with dentist
Anxiety/depression
- continue Xanax as needed, fluoxetine, mirtazepine
History of opiate abuse
Was on Suboxone.
Limited opioid.
DVT Px: on Chr warfarin
Full code
Off of oxygen.
PT recommends acute rehab
Physiatry input noted
Medically stable for discharge to acute rehab when bed available
Anticipated Discharge: Within 24 hours
Subjective/Interval History
-
Date of Service: January 23, 2025
No overnight events.
Voices no specific complaints.
Denies any shortness of breath or chest pain.
No nausea or vomiting.
Tolerating diet.
No fever or chills.
Objective Data
-
Labs:
Laboratory Results
01/23/25
05:57
PT 23.1 H
INR 1.99
Vital Signs:
Vital Signs
Temp Pulse Resp BP Pulse Ox
98.9 F 85 17 151/88 95
01/23/25 07:52 01/23/25 07:52 01/23/25 07:52 01/23/25 07:52 01/23/25 07:52
I&O
01/22/25 01/23/25 01/24/25
06:59 06:59 06:59
Intake Total 720 / 720 2160 / 2160 120 / 120
Output Total 550 / 550
Balance 720 / 720 2160 / 2160 -430 / -430
Physical Exam
-
General: Comfortable
Respiratory: Non Labored Respirations; Negative Accessory Resp Muscle Use
Cardiac: Regular Rhythm and S1/S2
GI: Soft
Neuro: AO x 3
Data Reviewed
-
Labs: Labs Reviewed by me
[2025-01-23 11:05] VITALS: BP 122/71; PULSE 78
[2025-01-23 11:46] VITALS: BP 110/67
[2025-01-23] MEDS: LOVENOX 70 MG SC ×2 (12:22→22:16)
[2025-01-23 15:07] VITALS: BP 143/83
[2025-01-23] MEDS: IMODIUM 2 MG PO (16:39)
[2025-01-23] MEDS: COUMADIN 2.5 MG PO (17:34)
[2025-01-23 19:00] VITALS: BP 138/82
[2025-01-23] MEDS: INVANZ 60 MG IV (22:17)
[2025-01-23] MEDS: AMBIEN 10 MG PO (22:24)
[2025-01-23 23:00] VITALS: BP 138/80
[2025-01-24] MEDS: XANAX 0.5 MG PO ×3 (01:41→16:49)
[2025-01-24 03:00] VITALS: BP 133/81
[2025-01-24 05:13] VITALS: BMI 22.9
[2025-01-24 06:58] LABS: INR 2.58; PT 27.7 Sec (11.4-14.6)
[2025-01-24 07:13] LABS: Blood Urea Nitrogen 20 mg/dl (9-20); Calcium 7.7 mg/dl (8.4-10.2); Carbon Dioxide 25 mmol/L (22-30); Chloride 108 mmol/L (98-107); Estimated Creatinine Clearance 65 ml/min; Glucose 90 mg/dl (70-99); Potassium 4.1 mmol/L (3.5-5.1); Sodium 136 mmol/L (135-145); eGFR > 60.00
[2025-01-24 07:24] VITALS: BP 151/92
[2025-01-24] MEDS: COREG 25 MG PO ×2 (09:17→20:22)
[2025-01-24] MEDS: APRESOLINE 50 MG PO ×3 (09:17→23:54)
[2025-01-24] MEDS: PROZAC 40 MG PO (09:17)
[2025-01-24] MEDS: NORVASC 10 MG PO (09:18)
[2025-01-24] MEDS: ZESTRIL 2.5 MG PO (09:18)
[2025-01-24] MEDS: EDECRIN 50 MG PO ×2 (09:18→20:21)
[2025-01-24] MEDS: ALDACTONE 25 MG PO (09:18)
[2025-01-24] MEDS: PROTONIX 40 MG PO (09:18)
[2025-01-24] MEDS: NEURONTIN 300 MG PO ×2 (09:19→20:22)
[2025-01-24] MEDS: MUCINEX PO ×3 (09:19→20:25)
[2025-01-24] MEDS: ASPIR LOW (ENTERIC COATED) 81 MG PO (09:19)
[2025-01-24 11:04] VITALS: BP 115/74
--- NOTE | 2025-01-24 11:13 | W.PN.HOSP.TC ---
Today's Communication/Plan
-
DC Lovenox. Continue with Coumadin
Follow INR
Await placement.
Assessment / Plan
Assessment / Plan
ASSESSMENT & PLAN
Dyspnea likely secondary to pleural effusion-improved dyspnea and improving oxygenation status postthoracentesis. Transudative in nature based on lights criteria.CX neg.
Acute on chronic HFpEF
- Echo shows stable postop findings and EF of 75%
- Continue with current diuretic regimen-currently on oral ethacrynic acid and Aldactone.
- on Coreg.
- initiated on Farxiga this adx
Acute on anemia of chronic disease - stable Hgb around 7
Acute blood loss anemia status post surgery ( HX Status post 5 units of PRBC on last admission)
Recovered postop thrombocytopenia ( HX status post 2 units of platelet transfusion and 2 units of FFP)
- S/p 1 unit of PRBC transfusion on this admission. Continue to trend CBC.
-Heme test pending.HH stable.
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
- Now s/p complex open heart surgery (12/27/2024) with mechanical AVR, debridement LVOT/MV structures
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
- Enterobacter cloacae also isolated from valve tissue (from enrichment broth only)
- cont IV ertapenem. Goal is continue antibiotics through 02/14/25
Mechanical aortic valve replacement:
- Was on Coumadin and aspirin.
Restarted Coumadin postthoracentesis. INR 2.5. DC bridging Lovenox. Continue with Coumadin dose for today.
Benign Hypertension
- on OPTICAL ASSISTANT Amlodipine 10 mg
- on OPTICAL ASSISTANT coreg 25mg bid
- on hydralazine 50mg tid (lowered for hypotensive episode)
- Avoiding JUAN/ARB with recovering CORNELIO
Post op new LBBB/IVCD, follow telemetry:
-stable in SR
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
However CKD3a may be new baseline
- Known to nephrology
-Creatinine stable
Tooth filling cap dislodgement
-outpatient follow up with dentist
Anxiety/depression
- continue Xanax as needed, fluoxetine, mirtazepine
History of opiate abuse
Was on Suboxone.
Limited opioid.
DVT Px: on Chr warfarin
Full code
Off of oxygen.
PT recommends acute rehab
Physiatry input noted
Medically stable for discharge to acute rehab when bed available
Anticipated Discharge: Within 24 hours
Subjective/Interval History
-
Date of Service: January 24, 2025
No overnight events.
Stools are looser up to 4 a day but no nausea vomiting. Tolerating diet. No abdominal pain.
Denies shortness of breath or chest pain.
Denies dizziness.
Objective Data
-
Labs:
Laboratory Results
01/24/25
06:24
PT 27.7 H
INR 2.58
Sodium 136
Potassium 4.1
Chloride 108 H
Carbon Dioxide 25
BUN 20
Creatinine 1.4 H
Glucose 90
Calcium 7.7 L
Vital Signs:
Vital Signs
Temp Pulse Resp BP Pulse Ox
98.3 F 79 17 115/74 97
01/24/25 11:04 01/24/25 11:04 01/24/25 11:04 01/24/25 11:04 01/24/25 11:04
I&O
01/23/25 01/24/25 01/25/25
06:59 06:59 06:59
Intake Total 2160 / 2160 720 / 720
Output Total 1999 / 1999
Balance 2160 / 2160 -1280 / -1280
Physical Exam
-
General: No Apparent Distress
Respiratory: Non Labored Respirations; Negative Accessory Resp Muscle Use
Cardiac: Regular Rhythm and S1/S2; Negative Tachycardic
GI: Soft and Nontender
Neuro: AO x 3
Data Reviewed
-
Labs: Labs Reviewed by me
[2025-01-24 15:06] VITALS: BP 129/84
[2025-01-24] MEDS: ATIVAN 0.25 MG PO ×2 (18:24→20:20)
[2025-01-24] MEDS: COUMADIN 2.5 MG PO (18:28)
[2025-01-24 19:00] VITALS: BP 134/80
[2025-01-24] MEDS: AMBIEN 10 MG PO (22:03)
[2025-01-24] MEDS: INVANZ 60 MG IV (22:11)
[2025-01-24 23:00] VITALS: BP 136/82
[2025-01-25] VITALS (10 sets, daily range): BP systolic 108–152; BP diastolic 51–97; BMI 22.7
[2025-01-25 04:31] LABS: INR 2.50; PT 27.0 Sec (11.4-14.6)
[2025-01-25] MEDS: PROTONIX 40 MG PO (08:05)
[2025-01-25] MEDS: NEURONTIN 300 MG PO ×2 (08:06→20:23)
[2025-01-25] MEDS: EDECRIN 50 MG PO ×2 (08:06→20:22)
[2025-01-25] MEDS: APRESOLINE 50 MG PO ×2 (08:06→16:40)
[2025-01-25] MEDS: PROZAC 40 MG PO (08:06)
[2025-01-25] MEDS: ALDACTONE 25 MG PO (08:07)
[2025-01-25] MEDS: MUCINEX 600 MG PO (08:07)
[2025-01-25] MEDS: ZESTRIL 2.5 MG PO (08:07)
[2025-01-25] MEDS: NORVASC 10 MG PO (08:07)
[2025-01-25] MEDS: ASPIR LOW (ENTERIC COATED) 81 MG PO (08:07)
[2025-01-25] MEDS: COREG 25 MG PO ×2 (08:07→20:21)
[2025-01-25] MEDS: IMODIUM 2 MG PO (10:02)
[2025-01-25] MEDS: ATIVAN 0.5 MG PO ×3 (10:02→23:54)
--- NOTE | 2025-01-25 11:23 | W.PN.HOSP.TC ---
Today's Communication/Plan
-
Ongoing dispo efforts
Assessment / Plan
Assessment / Plan
ASSESSMENT & PLAN
Dyspnea likely secondary to pleural effusion-improved dyspnea and improving oxygenation status postthoracentesis. Transudative in nature based on lights criteria.CX neg.
Acute on chronic HFpEF
- Echo shows stable postop findings and EF of 75%
- Continue with current diuretic regimen-currently on oral ethacrynic acid and Aldactone.
- on Coreg.
- initiated on Farxiga this adx
Acute on anemia of chronic disease - stable Hgb around 7
Acute blood loss anemia status post surgery ( HX Status post 5 units of PRBC on last admission)
Recovered postop thrombocytopenia ( HX status post 2 units of platelet transfusion and 2 units of FFP)
- S/p 1 unit of PRBC transfusion on this admission. Continue to trend CBC.
-HH stable.
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
- Now s/p complex open heart surgery (12/27/2024) with mechanical AVR, debridement LVOT/MV structures
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
- Enterobacter cloacae also isolated from valve tissue (from enrichment broth only)
- cont IV ertapenem. Goal is continue antibiotics through 02/14/25
Mechanical aortic valve replacement:
- Was on Coumadin and aspirin.
Restarted Coumadin postthoracentesis. INR 2.5. Off of bridging Lovenox. Continue with Coumadin ..
Benign Hypertension
- on BLACKSMITH SUPERVISOR Amlodipine 10 mg
- on BLACKSMITH SUPERVISOR coreg 25mg bid
- on hydralazine 50mg tid (lowered for hypotensive episode)
- Avoiding JUAN/ARB with recovering CORNELIO
Post op new LBBB/IVCD, follow telemetry:
-stable in SR
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
However CKD3a may be new baseline
- Known to nephrology
-Creatinine stable
Tooth filling cap dislodgement
-outpatient follow up with dentist
Anxiety/depression
- continue ativan as needed, fluoxetine, mirtazepine
History of opiate abuse
Was on Suboxone.
Limited opioid.
DVT Px: on Chr warfarin
Full code
Off of oxygen.
PT recommends acute rehab
Physiatry input noted
Medically stable for discharge to acute rehab when bed available
Anticipated Discharge: Within 24 hours
Subjective/Interval History
-
Date of Service: January 25, 2025
No overnight events.
Feeling anxious with this current medical issues in general. Has chronic anxiety and does use Xanax which has worked. He says Ativan works better and requesting change from Xanax to Ativan.
Denies shortness of breath. No fever or chills. Tolerating diet.
Objective Data
-
Labs:
Laboratory Results
01/25/25
04:08
PT 27.0 H
INR 2.50
Vital Signs:
Vital Signs
Temp Pulse Resp BP Pulse Ox
98 F 84 17 120/73 97
01/25/25 11:03 01/25/25 11:03 01/25/25 11:03 01/25/25 11:03 01/25/25 11:03
I&O
01/24/25 01/25/25 01/26/25
06:59 06:59 06:59
Intake Total 720 / 720 480 / 480
Output Total 2000 / 2000 1500 / 1500 600 / 600
Balance -1280 / -1280 -1020 / -1020 -600 / -600
Physical Exam
-
General: Comfortable
Respiratory: Non Labored Respirations; Negative Accessory Resp Muscle Use
Cardiac: Regular Rhythm and S1/S2
GI: Soft
Neuro: AO x 3
Data Reviewed
-
Labs: Labs Reviewed by me
[2025-01-25] MEDS: COUMADIN 2.5 MG PO (17:31)
[2025-01-25] MEDS: MUCINEX PO (20:23)
[2025-01-25] MEDS: INVANZ 60 MG IV (22:11)
[2025-01-25] MEDS: AMBIEN 10 MG PO (22:18)
[2025-01-26] VITALS (9 sets, daily range): BP systolic 113–159; BP diastolic 67–94; PULSE 77; O2SAT 98; BMI 23.3
[2025-01-26] MEDS: APRESOLINE 50 MG PO ×3 (01:06→17:36)
[2025-01-26 05:07] LABS: INR 3.50; PT 34.9 Sec (11.4-14.6)
[2025-01-26] MEDS: ASPIR LOW (ENTERIC COATED) 81 MG PO (08:42)
[2025-01-26] MEDS: NEURONTIN 300 MG PO ×2 (08:42→20:20)
[2025-01-26] MEDS: MUCINEX 600 MG PO (08:42)
[2025-01-26] MEDS: PROTONIX 40 MG PO (08:42)
[2025-01-26] MEDS: PROZAC 40 MG PO (08:42)
[2025-01-26] MEDS: ZESTRIL 2.5 MG PO (08:42)
[2025-01-26] MEDS: COREG 25 MG PO ×2 (08:43→20:17)
[2025-01-26] MEDS: EDECRIN 50 MG PO ×2 (08:43→20:19)
[2025-01-26] MEDS: ALDACTONE 25 MG PO (08:43)
[2025-01-26] MEDS: NORVASC 10 MG PO (08:44)
[2025-01-26] MEDS: ATIVAN 0.5 MG PO ×2 (08:48→20:20)
--- NOTE | 2025-01-26 10:00 | W.PN.ID1 ---
Date of Service
Date of Service: January 26, 2025
Today's Communication
Continue current antibiotics
Assessment / Plan
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
- Enterobacter cloacae also isolated from valve tissue (from enrichment broth only)
Suspected septic emboli to the brain
Subarachnoid hemorrhage
Leukocytosis; resolved
Renal insufficiency
Elevated ESR, CRP
- 01/21/25 : ESR 86, CRP <5
Pleural effusion
HTN
DM type II
Nephrolithiasis
Recommendations:
Patient status post valve replacement with mechanical AVR (12/27/2024)
Aortic valve cx: Enterobacter cloacae (on enrichment broth only) - possibly contaminant.
- To error on side of caution, treating both S. mutans and E. cloacae isolates.
-> Continue Ertapenem 1g IV q 24h x 6 weeks (through 02/14/25)
--> Follow weekly CBC with diff, CMP, ESR / CRP.
����������������������������������������������������������
Chief Complaint
-: Other (Endocarditis)
Subjective / Review of Systems
Review of Systems: No Fever
Vital Signs / Physical Exam
Vital Signs
Vital Signs
Temp Pulse Resp BP Pulse Ox
98.0 F 81 17 159/94 95
01/26/25 07:17 01/26/25 08:43 01/26/25 07:17 01/26/25 08:43 01/26/25 07:17
Physical Exam
Constitutional: No Acute Distress, Chronically Ill and Non-toxic
Eyes: No Conjunctival Hemorrhage and Sclera Anicteric
Cardiovascular: S1/S2 and Other (Click); Negative S3/S4
Pulmonary: Clear; Negative Wheezes or Rales
Gastrointestinal: Soft and Non Tender
Extremities: Edema; Negative Cyanosis or Erythema
Skin: Negative Rash or Jaundice
Psychological: Calm
Objective Data
Lab Data
Lab Results
01/21/25 06:06
01/24/25 06:24
ESR 86 mm/hour (0-20) H 01/21/25 06:06
PT 34.9 Sec (11.4-14.6) H 01/26/25 04:38
INR 3.50 01/26/25 04:38
APTT 40.1 Sec (23.4-35.0) H 01/17/25 18:36
Estimated Creat Clear 65 ml/min 01/24/25 06:24
Total Bilirubin 0.5 mg/dl (0.2-1.3) 01/18/25 03:35
AST 17 U/L (17-59) 01/18/25 03:35
ALT < 10 U/L (0-50) 01/18/25 03:35
Alkaline Phosphatase 110 U/L (38-126) 01/18/25 03:35
C-Reactive Protein < 5.00 mg/L (0.0-10.00) 01/21/25 06:06
Most recent labs reviewed.
Micro Results:
01/19/25 11:30 Body Fluid Culture - Final
Pleural Fluid No Growth After 72 Hours
Gram Stain - Final
01/17/25 23:30 MRSA Screen - Final
Nose No Methicillin Resistant Staphylococcus aureus isolated.
Imaging:
01/22/2025 Renal ultrasound with bladder: No sonographic evidence for hydronephrosis. Left intrarenal calculus noted. Mild diffuse urinary bladder wall thickening. Small pleural effusions bilaterally.
01/19/2025 CXR (portable): Interval left-sided thoracentesis without evidence of pneumothorax. Improved aeration of the left lower lung. Please see full dictation for additional detail.
01/17/2025 CT chest (PE study): No PE seen. Moderate bilateral pleural effusions. Near complete atelectasis of the left lower lobe. Small focal area of atelectasis involving the posterior lingula. Subtle band shaped focus of decreased density
involving the superior spleen suggesting a focal area of splenic infarction. There is a small fluid collection posterior to the mid to inferior sternum which is likely postsurgical seroma. No evidence of a thickened enhancing wall to suggest
abscess. Please see full dictation for additional detail.
--- NOTE | 2025-01-26 12:19 | W.PN.HOSP.TC ---
Today's Communication/Plan
-
Await placement to rehab
Decrease Coumadin dose
Assessment / Plan
Assessment / Plan
ASSESSMENT & PLAN
Dyspnea likely secondary to pleural effusion-improved dyspnea and improving oxygenation status postthoracentesis. Transudative in nature based on lights criteria.CX neg.
Acute on chronic HFpEF
- Echo shows stable postop findings and EF of 75%
- Continue with current diuretic regimen-currently on oral ethacrynic acid and Aldactone.
- on Coreg.
- initiated on Farxiga this adx
Acute on anemia of chronic disease - stable Hgb around 7
Acute blood loss anemia status post surgery ( HX Status post 5 units of PRBC on last admission)
Recovered postop thrombocytopenia ( HX status post 2 units of platelet transfusion and 2 units of FFP)
- S/p 1 unit of PRBC transfusion on this admission. Continue to trend CBC.
-HH stable.
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
- Now s/p complex open heart surgery (12/27/2024) with mechanical AVR, debridement LVOT/MV structures
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
- Enterobacter cloacae also isolated from valve tissue (from enrichment broth only)
- cont IV ertapenem. Goal is continue antibiotics through 02/14/25
Mechanical aortic valve replacement:
- Was on Coumadin and aspirin.
Status post Lovenox bridging. INR therapeutic at 3.5 now. Goal INR 2-3 per CTS. adjust Coumadin to 1.5 mg daily
Benign Hypertension
- on [employer] Amlodipine 10 mg
- on [employer] coreg 25mg bid
- on hydralazine 50mg tid (lowered for hypotensive episode)
- Avoiding JUAN/ARB with recovering CORNELIO
Post op new LBBB/IVCD, follow telemetry:
-stable in SR
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
However CKD3a may be new baseline
- Known to nephrology
-Creatinine stable
Tooth filling cap dislodgement
-outpatient follow up with dentist
Anxiety/depression
- continue ativan as needed, fluoxetine, mirtazepine
History of opiate abuse
Was on Suboxone.
Limited opioid.
DVT Px: on Chr warfarin
Full code
Off of oxygen.
PT recommends acute rehab
Physiatry input noted
Medically stable for discharge to acute rehab when bed available
Anticipated Discharge: Today
Subjective/Interval History
-
Date of Service: January 26, 2025
Resting in bed comfortably
Anxious
Agreed to go to [place]
Objective Data
-
Labs:
Laboratory Results
01/26/25
04:38
PT 34.9 H
INR 3.50
Vital Signs:
Vital Signs
Temp Pulse Resp BP Pulse Ox
98.5 F 84 16 136/89 95
01/26/25 11:11 01/26/25 11:11 01/26/25 11:11 01/26/25 11:11 01/26/25 11:11
I&O
01/25/25 01/26/25 01/27/25
06:59 06:59 06:59
Intake Total 480 / 480 1000 / 1000
Output Total 1500 / 1500 600 / 600
Balance -1020 / -1020 400 / 400
Physical Exam
-
General: Comfortable and Appears Chronically Ill
Respiratory: Non Labored Respirations; Negative Accessory Resp Muscle Use
Cardiac: Regular Rhythm, S1/S2 and Other (Midline scar noted)
GI: Soft and Nondistended
Skin: Warm
Neuro: Awake, AO x 3 and No Motor Deficits
Psych: Calm
[2025-01-26] MEDS: IMODIUM 2 MG PO (12:34)
--- NOTE | 2025-01-26 15:42 | CM ---
Per Freda @ [facility], [facility] can accept Kranthi tomorrow, 01/27/2025.
Per Freda, patient has an active Medicaid # [id number]
Freda spoke with Latricia @ [facility] to discuss post acute rehab needs; after [place] stay patient could go home with home health service with [facility] to complete the antibiotic course.
notified of same.
Plan[facility].
[2025-01-26] MEDS: COUMADIN 1.5 MG PO (17:36)
[2025-01-26] MEDS: MUCINEX PO (20:20)
[2025-01-26] MEDS: INVANZ 60 MG IV (22:17)
[2025-01-26] MEDS: AMBIEN 10 MG PO (22:20)
[2025-01-27] MEDS: APRESOLINE 50 MG PO ×3 (00:19→15:09)
[2025-01-27 00:21] VITALS: BP 115/71
[2025-01-27 03:15] VITALS: BP 115/72
[2025-01-27 06:00] VITALS: BMI 22.8
[2025-01-27 06:24] LABS: Hematocrit 22.7 % (39.0-52.0); Hemoglobin 7.8 g/dL (13.0-18.0); Mean Corp Hgb Conc. 34.4 g/dL (33.0-37.0); Mean Corpuscular Volume 85.3 fL (80.0-94.0); Nucleated Red Blood Cells % 0 % (-); Platelet Count 190 10^3/uL (130-400); Red Cell Dist. Width 15.1 % (11.5-14.5)
[2025-01-27 06:34] LABS: INR 3.38; PT 34.0 Sec (11.4-14.6)
[2025-01-27 06:54] LABS: Blood Urea Nitrogen 27 mg/dl (9-20); Calcium 8.3 mg/dl (8.4-10.2); Carbon Dioxide 25 mmol/L (22-30); Chloride 108 mmol/L (98-107); Estimated Creatinine Clearance 56 ml/min; Glucose 85 mg/dl (70-99); Potassium 4.4 mmol/L (3.5-5.1); Sodium 136 mmol/L (135-145); eGFR 52.17
[2025-01-27 07:33] VITALS: BP 145/85
[2025-01-27] MEDS: EDECRIN 50 MG PO (08:21)
[2025-01-27] MEDS: PROTONIX 40 MG PO (08:21)
[2025-01-27] MEDS: PROZAC 40 MG PO (08:21)
[2025-01-27] MEDS: ALDACTONE 25 MG PO (08:21)
[2025-01-27] MEDS: ZESTRIL 2.5 MG PO (08:21)
[2025-01-27] MEDS: COREG 25 MG PO (08:21)
[2025-01-27] MEDS: NEURONTIN 300 MG PO (08:21)
[2025-01-27] MEDS: ASPIR LOW (ENTERIC COATED) 81 MG PO (08:21)
[2025-01-27] MEDS: NORVASC 10 MG PO (08:22)
[2025-01-27] MEDS: MUCINEX PO (08:25)
[2025-01-27] MEDS: ATIVAN 0.5 MG PO ×2 (08:27→13:56)
--- NOTE | 2025-01-27 10:40 | W.PN.HOSP.TC ---
Today's Communication/Plan
-
DC to acute rehab
Goal-directed medical therapy
Started on lisinopril this admission per cardiology
Continue with IV antibiotics
Assessment / Plan
Assessment / Plan
ASSESSMENT & PLAN
Dyspnea likely secondary to pleural effusion-improved dyspnea and improving oxygenation status postthoracentesis. Transudative in nature based on lights criteria.CX neg.
Acute on chronic HFpEF
- Echo shows stable postop findings and EF of 75%
- Continue with current diuretic regimen-currently on oral ethacrynic acid and Aldactone.
- on Coreg.
Acute on anemia of chronic disease - stable Hgb around 7
Acute blood loss anemia status post surgery ( HX Status post 5 units of PRBC on last admission)
Recovered postop thrombocytopenia ( HX status post 2 units of platelet transfusion and 2 units of FFP)
- S/p 1 unit of PRBC transfusion on this admission. Continue to trend CBC.
-HH stable.
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
- Now s/p complex open heart surgery (12/27/2024) with mechanical AVR, debridement LVOT/MV structures
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
- Enterobacter cloacae also isolated from valve tissue (from enrichment broth only)
- cont IV ertapenem. Goal is continue antibiotics through 02/14/25
Mechanical aortic valve replacement:
- Was on Coumadin and aspirin.
-Status post Lovenox bridging. INR therapeutic at 3.3 now. Goal INR 2-3 per CTS. decrease Coumadin to 1.5 mg daily.
Benign Hypertension
- on [employer] Amlodipine 10 mg
- on [employer] coreg 25mg bid
- on hydralazine 50mg tid
Post op new LBBB/IVCD, follow telemetry:
-stable in SR
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
However CKD3a may be new baseline
- Known to nephrology
-Creatinine stable
Tooth filling cap dislodgement
-outpatient follow up with dentist
Anxiety/depression
- continue ativan as needed, fluoxetine, mirtazepine
History of opiate abuse
Was on Suboxone.
Limited opioid.
DVT Px: on Chr warfarin
Full code
Off of oxygen.
PT recommends acute rehab
Physiatry input noted
Medically stable for discharge to acute rehab when bed available
More than 30 minutes spent in discharge including
Final examination of the patient
Summarizing hospital stay
Instructions for continuing care to all relevant caregivers
Preparation of discharge records, prescriptions, and referral forms
Total time spent (in minutes): 52
Anticipated Discharge: Today
Subjective/Interval History
-
Date of Service: January 27, 2025
in good spirits as going to [place]
Objective Data
-
Labs:
Laboratory Results
01/27/25
06:14
WBC 6.9
Hgb 7.8 L
Hct 22.7 L
Plt Count 190 D
PT 34.0 H
INR 3.38
Sodium 136
Potassium 4.4
Chloride 108 H
Carbon Dioxide 25
BUN 27 H
Creatinine 1.6 H
Glucose 85
Calcium 8.3 L
Vital Signs:
Vital Signs
Temp Pulse Resp BP Pulse Ox
98.3 F 79 20 145/85 97
01/27/25 07:33 01/27/25 07:33 01/27/25 07:33 01/27/25 07:33 01/27/25 07:33
I&O
01/26/25 01/27/25 01/28/25
06:59 06:59 06:59
Intake Total 1000 / 1000 1200 / 1200
Output Total 600 / 600 525 / 525
Balance 400 / 400 675 / 675
Physical Exam
-
General: Comfortable and Appears Chronically Ill
Respiratory: Non Labored Respirations; Negative Accessory Resp Muscle Use
Cardiac: Regular Rhythm, S1/S2 and Other (Midline scar noted)
GI: Soft and Nondistended
Skin: Warm
Neuro: Awake, AO x 3 and No Motor Deficits
Psych: Calm
--- NOTE | 2025-01-27 10:42 | W.DCSUMMARY ---
Discharge Summary
Discharge Data
Date of Admission: 01/17/25
Date of Discharge: 01/27/25
-
Pending Results: No
Hospital Course
49-year-old male with extensive past medical history of anxiety, depression, CKD, septic emboli to the brain, spleen, strep mutans bacteremia with need to valve endocarditis Now s/p complex open heart surgery (12/27/2024) with mechanical AVR,
debridement LVOT/MV structures Post op complicated by CVA with hemorrhagic conversion, CORNELIO, & splenic infarct, opioid addiction, SAH, chronic coagulopathy with Coumadin, deconditioning, hypertension, anemia of chronic disease, postop new left bundle
branch block who is presenting from long-term facility with shortness of breath. Patient was found to a large pleural effusion. Patient was eval by cardiology, infectious disease and CT surgery and interventional radiology. Patient
underwent thoracentesis. Was found to be transudative in nature. Fluid cultures were negative. Pleural fluid was negative for malignant cells. Cardiology was following and adjusting medication. Patient was started on low-dose lisinopril.
Creatinine still remained stable. Patient was remained on IV ertapenem. Patient also with anemia and received 1 unit of PRBC. Patient was tolerating diet without any difficulty. Patient well signs were stable. Patient was eval by physical and
Occupational Therapy. Patient to be discharged to a acute rehab facility.
Discharge Plan
-
Patient Disposition: Acute Rehab Facility
Discharge Diagnosis/Procedures: Acute on chronic diastolic heart failure exacerbation
Acute anemia of chronic disease status post blood transfusion
Pleural effusion status post thoracentesis
Condition: Fair
Diet: 2 Gram Sodium and Restrict fluids to 48 oz
Activity: As tolerated
Driving Restrictions: As prior to admission
Blood Work: INR IN 2-3 days
Recommend weekly CBC with diff, CMP, ESR / CRP results faxed over to infectious disease Dr. Key.
Referrals:
Luis Turner DO [Family Provider, Family Practice]
Prescriptions:
New
lorazepam 0.5 mg Tablet
0.5 mg PO Q8HPRN PRN (Reason: anxiety) Qty: 10 0RF
lisinopril 2.5 mg Tablet
2.5 mg PO DAILY 30 Days Qty: 30 0RF
Continued
fluoxetine 40 mg Capsule
40 mg PO DAILY
amlodipine 10 mg Tablet
10 mg PO DAILY Qty: 0 0RF
Rx Instructions:
hold for SBP<110 and HR<60
Ertapenem [Invanz] 1000 MG
0.9% Sodium Chloride [Nss] 50 ML
120 mls/hr IV Q24H
Reason for use: strep mutans endocarditis (end date 02/14/25)
Ordered By: Erica Rico CRNP
Last Taken: 01/17/25
Patient Comments:
01/17/2025, start date: 01/15/2025; end date: 02/14/2025.
pantoprazole 40 mg Tablet,Delayed Release (Dr/Ec)
40 mg PO DAILY Qty: 0 0RF
spironolactone 25 mg Tablet
25 mg PO DAILY Qty: 0 0RF
Rx Instructions:
Hold for sbp<110
acetaminophen [Tylenol] 325 mg Tablet
650 mg PO Q6HPRN MDD 3000 mg PRN (Reason: mild pain/temp>100.4F)
magnesium hydroxide [Milk of Magnesia] 400 mg/5 mL Suspension
30 ml PO [id number] PRN (Reason: if no BM in 3 days)
bisacodyl 10 mg Suppository
10 mg DE DAILY PRN (Reason: if MOM ineffective)
gabapentin 300 mg Capsule
300 mg PO BID
aspirin 81 mg Capsule
81 mg PO DAILY
carvedilol 25 mg tablet
25 mg PO DAILY
Rx Instructions:
hold for SBP<110 and HR<60
ethacrynic acid 25 mg tablet
50 mg PO BID
hydralazine 50 mg tablet
50 mg PO Q8H
Rx Instructions:
Hold for SBP<110 and HR<60
guaifenesin 600 mg tablet extended release 12hr
600 mg PO DAILY
zolpidem [Ambien] 10 mg tablet
10 mg PO HS PRN (Reason: insomnia) Qty: 0 0RF
Changed
warfarin 1 mg tablet
1.5 mg PO QPM Qty: 0 0RF
Discontinued
Fleet Enema 19-7 gram/118 mL Enema
118 ml DE DAILYPRN PRN (Reason: if supp ineffective)
alprazolam 0.5 mg tablet
0.5 mg PO DAILYPRN PRN (Reason: Mental Health/Anxiety)
Discharge Orders:
Discharge Patient (As Directed); Ordered 01/27/25
Ordered By: Jose A Odell
Discharge Date and Time
Print Language: BULGARIAN
[2025-01-27 11:25] VITALS: BP 137/87
--- NOTE | 2025-01-27 12:38 | CM ---
Addendum entered by NILS Garcia 01/27/25 12:43:
Spoke with Freda from admissions at [facility] again who stated that after her director reviewed, she was advised to accept patient. Freda reviewing clinical, will call CM back with time she can accept.
Original Note:
Spoke with Freda at [facility] who stated that as patient is all supervision now, he no longer qualifies for [facility] rehab. Will review therapy notes. Will discuss home with IV ABX and homecare through [facility], SNF placement.
Plan: Case management will continue to follow and assist with discharge planning. [facility].
--- NOTE | 2025-01-27 13:15 | W.PN.ID1 ---
Date of Service
Date of Service: January 27, 2025
Today's Communication
Continue antibiotics.
Assessment / Plan
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
- Enterobacter cloacae also isolated from valve tissue (from enrichment broth only)
Suspected septic emboli to the brain
Subarachnoid hemorrhage
Leukocytosis; resolved
Renal insufficiency
Elevated ESR, CRP
- 01/21/25 : ESR 86, CRP <5
Pleural effusion
HTN
DM type II
Nephrolithiasis
Recommendations:
Patient status post valve replacement with mechanical AVR (12/27/2024)
Aortic valve cx: Enterobacter cloacae (on enrichment broth only) - possibly contaminant.
- To error on side of caution, treating both S. mutans and E. cloacae isolates.
-> Continue Ertapenem 1g IV q 24h x 6 weeks (through 02/14/25)
--> Follow weekly CBC with diff, CMP, ESR / CRP.
����������������������������������������������������������
Chief Complaint
-: Other (Endocarditis)
Subjective / Review of Systems
Patient seen and examined. Reports no specific complaints at present.
Review of Systems: No Fever and No Chills
Vital Signs / Physical Exam
Vital Signs
Vital Signs
Temp Pulse Resp BP Pulse Ox
98.3 F 81 21 137/87 96
01/27/25 11:25 01/27/25 11:25 01/27/25 11:25 01/27/25 11:25 01/27/25 11:25
Physical Exam
Constitutional: No Acute Distress, Chronically Ill and Non-toxic
Eyes: No Conjunctival Hemorrhage and Sclera Anicteric
Cardiovascular: S1/S2 and Other (Click); Negative S3/S4
Pulmonary: Clear; Negative Wheezes or Rales
Gastrointestinal: Soft and Non Tender
Extremities: Edema; Negative Cyanosis or Erythema
Skin: Negative Rash or Jaundice
Psychological: Calm
Lines: PICC
Objective Data
Lab Data
Lab Results
01/27/25 06:14
01/27/25 06:14
ESR 86 mm/hour (0-20) H 01/21/25 06:06
PT 34.0 Sec (11.4-14.6) H 01/27/25 06:14
INR 3.38 01/27/25 06:14
APTT 40.1 Sec (23.4-35.0) H 01/17/25 18:36
Estimated Creat Clear 56 ml/min 01/27/25 06:14
Total Bilirubin 0.5 mg/dl (0.2-1.3) 01/18/25 03:35
AST 17 U/L (17-59) 01/18/25 03:35
ALT < 10 U/L (0-50) 01/18/25 03:35
Alkaline Phosphatase 110 U/L (38-126) 01/18/25 03:35
C-Reactive Protein < 5.00 mg/L (0.0-10.00) 01/21/25 06:06
Most recent labs reviewed.
Micro Results:
01/19/25 11:30 Body Fluid Culture - Final
Pleural Fluid No Growth After 72 Hours
Gram Stain - Final
01/17/25 23:30 MRSA Screen - Final
Nose No Methicillin Resistant Staphylococcus aureus isolated.
Imaging:
01/22/2025 Renal ultrasound with bladder: No sonographic evidence for hydronephrosis. Left intrarenal calculus noted. Mild diffuse urinary bladder wall thickening. Small pleural effusions bilaterally.
01/19/2025 CXR (portable): Interval left-sided thoracentesis without evidence of pneumothorax. Improved aeration of the left lower lung. Please see full dictation for additional detail.
01/17/2025 CT chest (PE study): No PE seen. Moderate bilateral pleural effusions. Near complete atelectasis of the left lower lobe. Small focal area of atelectasis involving the posterior lingula. Subtle band shaped focus of decreased density
involving the superior spleen suggesting a focal area of splenic infarction. There is a small fluid collection posterior to the mid to inferior sternum which is likely postsurgical seroma. No evidence of a thickened enhancing wall to suggest
abscess. Please see full dictation for additional detail.
Care Review
Plan reviewed with: Physician (Hospitalist)
[2025-01-27 15:00] VITALS: BP 116/69
[2025-01-27] MEDS: IMODIUM 2 MG PO (15:05)
== END 2025-01-27 15:33 | DRG 291 ==
LOC: 3 WEST ACU 21:35
PROVIDERS: Emergency Medicine; Internal Medicine; Internal Medicine Cardiovascular Disease; Nurse Practitioner Family; Radiology Vascular & Interventional Radiology; Registered Nurse; ADMITTING PHYSICIAN Internal Medicine; ATTENDING PHYSICIAN Hospitalist; CONSULT PHYSICIAN Internal Medicine; CONSULT PHYSICIAN Physical Medicine & Rehabilitation; CONSULT PHYSICIAN Thoracic Surgery (Cardiothoracic Vascular Surgery); EMERGENCY PHYSICIAN Student in an Organized Health Care Education/Training Program; FAMILY PHYSICIAN Family Medicine; OTHER PHYSICIAN Internal Medicine Infectious Disease
PROC: 30243N1 Transfusion of Nonautologous Red Blood Cells into Central Vein, Percutaneous Approach (ICD-10-PCS; 2025-01-19)
PROC: 0W9B3ZZ Drainage of Left Pleural Cavity, Percutaneous Approach (ICD-10-PCS; 2025-01-19)
DX: I13.0 Hypertensive heart and chronic kidney disease with heart failure and stage 1 through stage 4 chronic kidney disease, or unspecified chronic kidney disease (principal); I33.9 Acute and subacute endocarditis, unspecified; I50.33 Acute on chronic diastolic (congestive) heart failure; F11.20 Opioid dependence, uncomplicated; I31.39 Other pericardial effusion (noninflammatory); J98.11 Atelectasis; M96.843 Postprocedural seroma of a musculoskeletal structure following other procedure; J90 Pleural effusion, not elsewhere classified; D62 Acute posthemorrhagic anemia; I5A Non-ischemic myocardial injury (non-traumatic); N18.32 Chronic kidney disease, stage 3b; E11.22 Type 2 diabetes mellitus with diabetic chronic kidney disease; F32.9 Major depressive disorder, single episode, unspecified; D63.1 Anemia in chronic kidney disease; F41.9 Anxiety disorder, unspecified; I44.0 Atrioventricular block, first degree; D73.5 Infarction of spleen; I44.7 Left bundle-branch block, unspecified; E78.00 Pure hypercholesterolemia, unspecified; Y84.8 Other medical procedures as the cause of abnormal reaction of the patient, or of later complication, without mention of misadventure at the time of the procedure; Z86.19 Personal history of other infectious and parasitic diseases; Z95.2 Presence of prosthetic heart valve; Z86.79 Personal history of other diseases of the circulatory system; Z87.442 Personal history of urinary calculi; Z79.82 Long term (current) use of aspirin; Z79.01 Long term (current) use of anticoagulants; Z88.2 Allergy status to sulfonamides; Z80.8 Family history of malignant neoplasm of other organs or systems; Z80.3 Family history of malignant neoplasm of breast; Z82.49 Family history of ischemic heart disease and other diseases of the circulatory system; Z56.0 Unemployment, unspecified; Z86.73 Personal history of transient ischemic attack (TIA), and cerebral infarction without residual deficits
CPT/HCPCS: 32555; 71045; 71275; 76770; 80048; 80053; 81003; 81015; 82042; 82150; 82570; 82945; 83615; 83880; 83986; 84134; 84155; 84156; 84157; 84478; 84484; 85025; 85027; 85610; 85652; 85730; 86140; 86850; 86900; 86901; 86920; 86922; 87015; 87070; 87205; 88112; 88305; 89051; 93005; 93306; 94640; 96374; 97110; 97116; 97163; 97167; 97530; 97535; 99285; J1335; P9016; Q9967

== ENCOUNTER 2025-02-03 19:09 | Inpatient (IN) | payer MEDICAID, SELFPAY ==
[2025-02-03] VITALS (20 sets, daily range): BP systolic 144–192; BP diastolic 89–126; BMI 22.0
--- NOTE | 2025-02-03 15:37 | ED.GENMED ---
History of Present Illness
General
Chief Complaint: Chest Problem
Source: patient
Time Seen by Provider: 02/03/25 15:21
History of Present Illness
History of Present Illness:
Patient is a 49-year-old male with a complicated prior medical history characterized by bacterial endocarditis, status post aortic valve replacement, status post septic emboli to brain/CVA with hemorrhagic conversion but currently at mask. He
reportedly had an echo today consistent with a pericardial effusion necessitating drainage. Patient denies any acute complaints. He does describe fatigue which is unchanged. He denies dizziness, chest pain, shortness of breath, or other acute
complaints.
Past History
Past History
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
ED Past Surgical History: Cardiac and Urological
Social History
Tobacco: Non-smoker
Alcohol: None
Drug: Former user
Personal:
Living: with family
Phy Exam
Physical Exam
Physical Exam:
GENERAL: Alert , in no apparent distress
EYE: pupils equal and reactive , no photophobia
NECK: Supple, no significant adenopathy, no JVD noted.
ENT: o/p clr, mmm.
CARDIAC: Regular rate and rhythm .
LUNGS: Clear breath sounds bilaterally, no acute respiratory distress, no wheezes/rales/rhonchi
ABDOMEN: Soft, without focal tenderness, no r/g, no cvat
NEUROLOGICAL: Alert and oriented, nonfocal (baseline left-sided weakness)
SKIN: Warm and dry, skin intact.
MUSCULOSKELETAL: No edema, well perfused.
PSYCH: Normal and appropriate interaction.
Course
Orders/Labs/Results
Orders:
Orders
02/03/25 Dinner
Cholesterol Lowering
At Your Request: Full Participation
02/03/25 15:59
EKG [Electrocardiogram (*1)] Routine
Reason for Study: Abnormal EKG
02/03/25 17:39
CARDIOLOGY CONSULT Routine
Consulting Provider: Pola Tafoya
Was physician already notified: Yes
Reason for consult: Large pericardial effusion
SURGICAL CONSULT Routine
Consulting Provider: Kranthi Denney
Was physician already notified: Yes
Reason for consult: Large pericardial effusion
02/03/25 18:03
Admit/Transfer Patient As Directed
Co-Sign Provider:
Level of Care: Inpatient admission
Assign to:: IVU
Physician / Group: radha pringle
Diagnosis: Large pericardial effusion
Reason for Hospitalization: Large pericardial effusion
Expected length of stay greater than two midnights?: Yes
ELOS- Estimated Length of Stay in days: 3
I certify the patient meets the requirements for IP care: Yes
Code Status As Directed
Resuscitation Status: Full Code
02/03/25 18:09
PRN Pain Medication Management As Directed
May give lesser potent ordered pain med per pt: Yes
preference::
Protocol:: Medication orders for pain may be administered in a
manner that supports deferring to patient preference
when the pt is:
- Requesting an ordered lesser potent pain medication.
Least to most potent pain medications are defined
as: acetaminophen < NSAID < tramadol < opioids
(morphine, oxycodone, hydromorphone).
- Requesting a lesser dose of the same medication IF
ORDERED.
- Requesting a less intrusive route of administration
if both routes are prescribed by the provider (PO <
IV).
02/03/25 18:29
Atypical Antibody Screen Urgent
BBK Wristband Number:
Type And Crossmatch [Type+Screen] Urgent
CBC/With Diff [Complete Blood Count/With Diff] Urgent
CMP [Comprehensive Metabolic Panel] Urgent
02/03/25 19:49
Acetaminophen [Tylenol] 650 mg PO Q6HPRN PRN mild pain
Lorazepam [Ativan] 0.5 mg PO Q8HPRN PRN anxiety
Sennosides [Senokot] 17.2 mg PO NOON PRN constipation
Zolpidem Tartrate [Ambien] 10 mg PO HSPRN PRN insomnia
02/03/25 19:49
Activity As Directed
Activity Level: With Assistance
Intake/ Output As Directed
Frequency: Per unit guidelines
Pneumatic Compression Sleeves As Directed
Type: Knee high
Vital Signs As Directed
Frequency: Per unit guidelines
Weight As Directed
Frequency: Daily
Pulse Ox/spot Check [RESP] Routine
Quantity: 1
DX Deep Vein Thrombosis Video Routine
02/03/25 20:00
Carvedilol [Coreg] 12.5 mg PO BID
Docusate Sodium [Colace] 100 mg PO BID
Ethacrynic Acid [Edecrin] 50 mg PO BID
Gabapentin [Neurontin] 300 mg PO BID
02/03/25 20:02
Loperamide [Imodium] 2 mg PO Q6HPRN PRN
02/03/25 22:00
Ertapenem [Invanz] 1,000 mg 0.9% Sodium Chloride [Nss] 50 ml IV Q24H
HydrALAZINE [Apresoline] 10 mg PO TID
02/04/25 02:25
Complete Blood Count/With Diff IN AM
Comprehensive Metabolic Panel IN AM
Magnesium IN AM
PT/INR [Prothrombin Time] IN AM
02/04/25 Breakfast
NPO
Allow oral meds: Yes
Allow clear liquids: No
NPO with Ice Chips: No
02/04/25 08:00
CT TAVR (Chest Only) Routine
Comment: r/o fistula between aortic root/pulmonary artery
Reason For Exam: s/p AVR, rule-out fistula
Amlodipine [Norvasc] 10 mg PO DAILY
Ferrous Sulfate [Feosol] 325 mg PO DAILY
Fluoxetine HCl [Prozac] 40 mg PO DAILY
Guaifenesin [Mucinex] 600 mg PO DAILY
Lactobac/Bifidobac [Visbiome] 2 cap PO DAILY
Pantoprazole [Protonix] 40 mg PO DAILY
Spironolactone [Aldactone] 25 mg PO DAILY
02/05/25 06:00
Complete Blood Count/With Diff IN AM
Comprehensive Metabolic Panel IN AM
Magnesium IN AM
PT/INR [Prothrombin Time] IN AM
02/06/25 06:00
Complete Blood Count/With Diff IN AM
Comprehensive Metabolic Panel IN AM
Magnesium IN AM
PT/INR [Prothrombin Time] IN AM
Abnormal Lab Results
02/03/25
18:29
RBC 2.59 L 10^6/uL
(4.70-6.10)
Hgb 7.6 L g/dL
(13.0-18.0)
Hct 22.3 L %
(39.0-52.0)
Abs Immat Gran (auto) 0.1 H 10^3/uL
(0-0.05)
Immature Gran % 0.7 H %
(0-0.5)
Chloride 108 H mmol/L
(98-107)
BUN 31 H mg/dl
(9-20)
Creatinine 1.9 H mg/dL
(0.7-1.3)
Calcium 8.3 L mg/dl
(8.4-10.2)
AST 16 L U/L
(17-59)
Total Protein 6.0 L g/dl
(6.3-8.2)
Albumin 2.9 L g/dl
(3.5-5.0)
02/03/25 18:29
02/03/25 18:29
Vital Signs
Initial and Last Documented VS:
Initial Vital Signs
BP
167/89
02/03/25 14:36
Last Documented Vital Signs
Temp Pulse Resp BP Pulse Ox
99.1 F 76 18 186/107 96
02/04/25 07:11 02/04/25 08:00 02/04/25 07:11 02/04/25 07:13 02/04/25 07:35
*Pulse Oximetry
SaO2: 98
Oxygen Mode of Delivery: Room air
Patient hypoxic: no
*Critical Care Note
Total Time (30-74mins, 75-104mins- exclusive of procedures): Not Applicable
Update Note
Update Note:
Patient presents to the Emergency Department with __reported pericardial effusion
Number and Complexity of Problems Addressed at the Encounter
� Chronic conditions affecting care:
� Acute Exacerbation and/or Progression of Chronic Illness:
� Differential Diagnosis includes: But not limited to cardiac tamponade, pericardial effusion, etc. etc.
Amount and/or Complexity of Data to be Reviewed and Analyzed
� I performed an independent evaluation of and my interpretation is:
EKG:
CT:
Xrays:
Laboratory Studies:
Other:
� Review of other/old records reveals:
� Clinical information was obtained by an independent historian: Case discussed with Arianna at [place] who confirms that patient had an echo today that showed a pericardial effusion she then discussed with Dr. Carmen bustos and
Олег regarding the plan for drainage and was instructed to defer patient to emergency department.
� Prescriptions/Medications Considered but not given:
� Further testing considered but not performed:
Risk of Complications and/or Morbidity or Mortality of Patient Management
� Social determinants of health affecting care:
� Discussion with other providers (PCP, Hospitalists, Consultants, etc):
� Escalation of care including admission/observation vs risk of discharge considered: Case discussed with Dr. Denney he is aware patient is here in the ER and most recent vitals, recommends admission, he has already spoken to
interventional cardiology and plans for semielective cardiocentesis.
ED Attending Note
-
Portions of this chart may have been created with voice recognition software.� Occasional wrong word or��sound alike� substitutions may have occurred due to the inherent limitations of voice recognition software.
Discharge Plan
Departure
Patient Disposition: Admit
Date of Disposition: 02/03/25
Time of Disposition: 17:02
Admit to: [facility]
Presentation/result/management discussed w/ accepting MD/DO: Hospitalist
Condition: Fair
Discharge Problem:
Acute pericardial effusion
Interventions
Interventions:
*Risk Screen - Suicide Last Done: 02/03/25 19:32
*General Assessment Last Done: 02/03/25 14:37
*Neglect/Abuse Screening Last Done: 02/03/25 19:32
*ED- Fall Risk Assessment Last Done: 02/03/25 14:37
*ED COVID-19 Vaccine History Last Done: 02/03/25 14:37
*Nursing Disposition Last Done: 02/03/25 19:32
ED- Cardiac Assessment Last Done: 02/03/25 15:00
ED- Pulmonary Assessment Last Done: 02/03/25 15:00
Discharge Date and Time
Discharge Date/Time: 02/03/25 19:35
--- NOTE | 2025-02-03 15:43 | CON.CAR ---
Addendum entered and electronically signed by Pola Tafoya MD 02/03/25 17:44:
I saw and examined the patient.
The ORE MINER BLASTING's note was reviewed and I agree with the note.
Comment:
Kranthi Kwan is a 49-year-old male (initially seen at [facility] by Dr. 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
valve chordae debridement with Dr. Denney on 12/27/24, complicated by subarachnoid hemorrhage, then readmitted with acute HFpEF then discharged to [facility] had an abnormal echocardiogram today with moderate to large pericardial effusion, pulmonary
valve thickening, and fistulous connection between the aortic annulus and pulmonary artery. Patient feels well and is asymptomatic from a cardiovascular standpoint. He has been progressing at acute rehab.
Physical exam notable for regular rate and rhythm, systolic murmur, trace lower extremity edema, lungs with bibasilar crackles.
Plan is for pericardiocentesis tomorrow. Hold warfarin tonight and make n.p.o. past midnight. CT surgery is planning to get a CT with contrast to better define the aortic annulus. We will continue to follow along. Obtain blood cultures.
Original Note:
Consultation
Consultation Request
Date/Time Consultation Requested: 02/03/2025 15:00
Date/Time Consultation Performed: 02/03/2025 15:45
Requesting Provider: Dr. Marichuy Junior
Performing Provider: JIE Dejesus for Dr. Tafoya
Reason for Consultation: Pericardial effusion
Medical History
-
Chief Complaint: Abnormal echocardiogram
History of Present Illness:
Kranthi Kwan is a 49-year-old male (initially seen at [facility] by Dr. 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
valve chordae debridement with Dr. Denney on 12/27/24, complicated by subarachnoid hemorrhage, then readmitted with acute HFpEF then discharged to [facility] had an abnormal echocardiogram today. The plan was to complete ertapenem through 02/14/2025.
His ESR and CRP became elevated. He had a CT scan which showed a pericardial effusion. This prompted an echocardiogram which showed moderate to large pericardial effusion without evidence of hemodynamic compromise, pleural effusion, and a
thickened pulmonic valve. He was referred to the ER for full evaluation. He reports he has been feeling well without chest pain and shortness of breath. He has been actively participating in rehab. No subjective complaints and he endorses normal
oral intake.
Past Medical History
Past Medical History: CHF (HFpEF), CVA (SAH), Renal Failure (CKD), Valvular Disease (Mechanical SAVR & mitral valve chordae debridement [strep mutans endocarditis]), Psychiatric (History of opioid abuse) and Other (Anemia of chronic disease)
Past Surgical History: Cardiac (Mechanical SAVR, septal myomectomy, mitral chordae debridement)
Social History
Tobacco: Non-Smoker
Alcohol: None
Drug: Former User
Personal:
Employment: Disabled
Family History
Family History: Reviewed & Not Pertinent
Allergies / Home Medications
Allergy/AdvReac Type Severity Reaction Status Date / Time
Sulfa (Sulfonamide Allergy Anaphylaxis Verified 01/17/25 17:21
Antibiotics)
sulfite Allergy Anaphylaxis Verified 01/17/25 17:21
�Medication �Instructions �Recorded �Confirmed �Type
fluoxetine 40 mg capsule 40 mg PO DAILY Mental 12/26/24 01/27/25 History
Health/Anxiety
Ertapenem [Invanz] 1,000 mg 120 mls/hr IV Q24H strep mutans 01/08/25 01/27/25 Rx
endocarditis (end date 02/14/25)
amlodipine 10 mg tablet 10 mg PO DAILY Blood pressure #0 01/08/25 01/27/25 Rx
tabs
pantoprazole 40 mg tablet,delayed 40 mg PO DAILY GI prophylaxis on 01/08/25 01/27/25 Rx
release Coumadin #0 tabs
spironolactone 25 mg tablet 25 mg PO DAILY Heart Failure #0 01/13/25 01/27/25 Rx
tabs
acetaminophen 325 mg tablet 650 mg PO Q6HPRN PRN mild 01/17/25 01/27/25 History
(Tylenol) pain/temp>100.4F
aspirin 81 mg capsule 81 mg PO DAILY Blood Clot 01/17/25 01/27/25 History
Prevention/Tx
bisacodyl 10 mg rectal suppository 10 mg GA DAILY PRN if MOM 01/17/25 01/27/25 History
ineffective
carvedilol 25 mg tablet 25 mg PO DAILY Blood pressure 01/17/25 01/27/25 History
ethacrynic acid 25 mg tablet 50 mg PO BID Fluid 01/17/25 01/27/25 History
retention/Swelling and sulfa
allergy
gabapentin 300 mg capsule 300 mg PO BID Pain 01/17/25 01/27/25 History
guaifenesin 600 mg tablet, 600 mg PO DAILY Cough 01/17/25 01/27/25 History
extended release 12 hr
hydralazine 50 mg tablet 50 mg PO Q8H Blood pressure 01/17/25 01/27/25 History
magnesium hydroxide 400 mg/5 mL 30 ml PO C32IFMI PRN if no BM in 3 01/17/25 01/27/25 History
oral suspension (Milk of Magnesia) days
lisinopril 2.5 mg tablet 2.5 mg PO DAILY 30 days #30 tabs 01/27/25 01/27/25 Rx
lorazepam 0.5 mg tablet 0.5 mg PO Q8HPRN PRN anxiety #10 01/27/25 01/27/25 Rx
tabs
warfarin 1 mg tablet 1.5 mg (1.5 x 1 mg) PO QPM 01/27/25 01/27/25 Rx
mechanical aortic valve #0 tabs
zolpidem 10 mg tablet (Ambien) 10 mg PO HS PRN insomnia #0 tabs 01/27/25 01/27/25 Rx
Review of Systems
-
History Source: Patient
All other systems: Negative unless noted
Constitutional: No Symptoms
EENT: No Symptoms
Respiratory: No Symptoms
Cardiac: No Symptoms
Abdomen/GI: No Symptoms
: No Symptoms
Musculoskeletal: No Symptoms
Skin: No Symptoms
Neurological: No Symptoms
Endocrine: No Symptoms
Hematologic/Lymphatic: No Symptoms
Physical Exam
Vital Signs
Temp Pulse Resp BP Pulse Ox
97.8 F 76 14 167/89 98
02/03/25 14:37 02/03/25 14:37 02/03/25 14:37 02/03/25 14:37 02/03/25 15:42
Physical Exam
General: Well Developed, Well Nourished, No Apparent Distress and Comfortable
HEENT: Normocephalic, Anicteric and Moist Mucous Membranes
Respiratory: Clear and Non Labored Respirations
Cardiac: S1/S2, Regular Rhythm and Peripheral Edema
Breast: Deferred by me
GI: Soft, Non Tender, Non Distended and Normal Bowel Sounds
Rectal: Deferred by Provider
Genito-urinary: No Costovertebral Tender
Musculoskeletal: No Clubbing and No Cyanosis
Skin: Warm and Dry
Neuro: Awake and Alert
Hematologic/Lymphatic: No Lymphadenopathy
Psych: Calm
Impression / Plan
-
I/P: 49M with recent aortic valve endocarditis complicated by septic emboli to the brain and spleen, s/p AoV replacement (#23 On-X mechanical SAVR), septal myomectomy and mitral valve chordae debridement with Dr. Denney on 12/27/24, complicated by
subarachnoid hemorrhage, then readmitted with acute HFpEF presents from [facility] with a pericardial effusion
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 Mcgowan (Mata Mckeon at [facility])
Pericardial effusion
- Mild to moderate on TTE without hemodynamic compromise
- The plan is for pericardiocentesis tomorrow, hold warfarin this evening
S/P AVR (25 mm On-X) s/p explant & redo AVR (23mm On-x), LVOT veg debridement, septal myomectomy/vegectomy, MV chordae vegetation resection and debridement on 12/27/[address] Denney
- Postoperative course was complicated by bleeding and reexploration
- Anticoagulated with warfarin, INR 2.99 this morning
- TTE today peak/mean gradient 16/9 mmHg with mild paravalvular AI
Pulmonic valve thickening, reassess after pericardiocentesis
-Fistulous connection visualized between the aortic root and proximal pulmonary artery
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
- Enterobacter cloacae was seen in enrichment broth only, possible contaminant, to err on side of caution treating both
- ESR and CRP have been trending up
- Consult ID
HFpEF, chronic
- His most recent weight is down significantly, however he has been weighed on a bed scale at [facility]
- GDMT as tolerated
- Diuretic: Ethacrynic acid 50 mg daily
- Beta-ck: Carvedilol 12.5 mg twice daily
- JUAN/ARB/ARNI: Lisinopril 2.5 mg daily
- MRA: Spironolactone 25 mg
- SGLT2i: Cost prohibitive
- Trend Daily weight, I's/O, and BMP during admission
- Heart failure education
CKD, slightly up from baseline, trend
Hypertension
- Chronic and stable, follow with changes in medical therapy
SAH, due to hemorrhagic conversion, in the setting of septic emboli
Anemia of chronic disease
LBBB/IVCD, EKG pending
History of opioid abuse, history of Suboxone, stable
Data Reviewed
-
EKG: Report Reviewed by me
Medical Tests (Nuc Med, Echo etc): Report Reviewed by me
Labs: Labs Reviewed by me
Old Records: Reviewed
--- NOTE | 2025-02-03 17:16 | HPS.HSE ---
Addendum entered and electronically signed by Iesha Gannon MD 02/03/25 19:40:
49-year-old male with history of endocarditis s/p mechanical aortic valve replacement, complicated by septic emboli CVA with hemorrhagic conversion presents from [facility] with large pericardial effusion on echo.
On exam, BP elevated 177/102 otherwise VSS
Gen: NAD
HEENT: EOMI, PERRLA, MMM, neck supple
CV: Heart RRR,+loud mechanical murmur
Lungs: CTAB, no w/r/r
Abd: soft/NT/ND/NABS
MSK: 1+ BLE ankle edema
Neuro: A+Ox3
Psych: Calm
A/P:
Pericardial effusion: Admit to IVU
Plan is for pericardiocentesis in a.m.
NPO p MN
Endocarditis: Continue IV antibiotics, hold Coumadin
HTN: continue home meds for BP control
Original Note:
Family Physician
-
Family Physician: Luis Turner
Chief Complaint
-
Pericardial effusion
History of Present Illness
49-year-old male sent by [facility] today for large pericardial effusion on echo today. 2 months ago he had bacterial endocarditis from a dental infection. He was initially seen at [facility] then transferred to [facility] for a
left-sided thoracentesis. On December 27 for an mechanical aortic valve replacement status which was complicated by post septic emboli to brain/CVA with hemorrhagic conversion during and after the procedure December 28. He denies any chest pain,
palpitations, cough, shortness of breath, fever, chills, abdominal pain, nausea, vomiting, diarrhea, urinary symptoms. He does describe chronic fatigue. He states he is at [facility] walking around with a walker was about to graduate to a cane.
Today he had a routine bedside echo showing a large pericardial effusion and was sent to ER for evaluation. He has past medical history of aortic stenosis status post mechanical aortic valve replacement, bacterial endocarditis(strep mutans
endocarditis) on aortic valve from dental infection complicated with septic emboli to brain/CVA with subarachnoid hemorrhagic conversion, HTN, DM 2, renal failure, depression
Medical History
Past Medical History
Past Medical History: Reports CHF (chr HFpEF ), HTN, NIDDM, Renal Failure and Other (depression, hypertension, insomnia, kidney stones)
Additional Past Medical History:
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
new LBBB/IVCD
aortic stenosis status post mechanical aortic valve replacement
bacterial endocarditis(strep mutans endocarditis) on aortic valve from dental infection
septic emboli to brain/CVA with subarachnoid hemorrhagic conversion December 28, 2024
Postop anemia -Postop anemia required 5 units PRBC 2 units of platelets and 2 units
LBBB/IVCD
Left-sided thoracentesis 5850 cc serosanguineous fluid
HTN
DM 2 diet controlled
CKD 3B
depression
Anxiety
Insomnia
Past Surgical History: Reports Cardiac (Mechanical aortic valve replacement:) and Other (JJ stent )
Additional Past Surgical History:
Left sided thoracentesis December 20 2024
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
new LBBB/IVCD December 27, 2024
Social History
Tobacco: Non-smoker
Alcohol: None
Drug: Other (Suboxone)
Personal:
Living: With Family ( Loan)
Employment: Employed
Family History
Family History: Other (Mother ovarian cancer 60s, father glioblastoma, sister healthy)
Allergies / Home Medications
Allergies reflects when Allergies were last updated in [employer].
Home Medications with original date entered in [employer]
Allergy/Medication List:
Home Medications
acetaminophen 325 mg tablet 650 mg PO Q6H PRN anemia 12/26/24
amlodipine 5 mg tablet 5 mg PO BID 12/26/24
ascorbic acid (vitamin C) 500 mg PO BID 12/26/24
ceftriaxone 2 gram intravenous solution 2 g IV DAILY 12/26/24
ferrous gluconate 324 mg (38 mg iron) tablet 324 mg PO DAILY 12/26/24
Review of Systems
-
History Source: Patient and Family ( at bedside)
A 12 point ROS was completed and negative except as noted: Yes
Constitutional: Reports Fatigue; Denies Fever
EENT: Denies Sore Throat or Runny Nose
Respiratory: Denies Cough or Trouble Breathing
Cardiac: Denies Chest Pain, Diaphoresis, Palpitations or Syncope
Abdomen/GI: Denies Abdominal Pain, Nausea, Vomiting, Diarrhea or Constipated
: Denies Dysuria, Frequency, Flank Pain, Incontinence or Difficulty Voiding
Musculoskeletal: Reports Edema (+1 bilateral lower leg edema); Denies Joint Pain
Skin: Reports Other (Right upper arm PICC line in place); Denies Itching or Rash
Neurological: Denies Dizzy, Headache or Weakness
Endocrine: Reports No Symptoms
Hematologic/Lymphatic: Reports No Symptoms
Psych: Reports Calm
Physical Exam
Vital Signs
Vital Signs
Temp Pulse Resp BP Pulse Ox
97.8 F 72 18 160/92 97
02/03/25 14:37 02/03/25 16:45 02/03/25 16:45 02/03/25 16:00 02/03/25 16:45
Physical Exam
General: Comfortable and Conversant; No Pain, Fever or Chills
HEENT: NormoCephalic, Anicteric, Moist mucous membranes, PERRLA, [place] Conjunctivae, No Ptosis and Neck Nontender
Respiratory: Clear; No Wheezes or Rales
Cardiac: S1/S2, Regular Rhythm, Peripheral Edema (+1 bilateral lower legs) and Other (Systolic click status post mechanical aortic valve replacement); No Murmur, Rub, Gallop, Calf Tenderness, Thomas's Sign or JVD
Breast: Deferred by me
GI: Soft, Non Tender, Non Distended, Normal Bowel Sounds and No Hepatosplenomegaly
Rectal: Deferred by Provider
Genito-urinary: Deferred by me
Musculoskeletal: No Clubbing, No Cyanosis, Edema, Left Lower Extremity (+1 pitting) and Edema, Right Lower Extremity (+1 pitting); No Edema, Left Upper Extremity or Edema, Right Upper Extremity
Skin: Warm, Dry and Other (PICC line right upper arm intact no surrounding erythema); No Rash
Neuro: AO x 3, No Motor Deficits, Nonfocal/grossly intact and No Sensory Deficits; No DTR's Intact & Symmetrical, Slurred Speech, Facial Droop or Tremors
Psych: Calm
Impression/Plan
-
Impression/plan:
Admit to IVU
#Large pericardial effusion
- Consult CT surgery for drainage
-Will check CBC, CMP, PTT INR, type and screen
- Consult CT surgery Dr. Denney aware
-Consult cardiology Dr. Robledo and followed by aware
-Plan for pericardiocentesis with IC tomorrow 02/04/2025
- N.p.o. after midnight
#CKD 3B
Creat 1.9 appears near her new baseline for patient
Follow BMP
# Chronic heart failure with residual peripheral edema
-Patient on ethacrynic acid 50 mg twice daily
#Bacterial endocarditis (strep mutans endocarditis )S/P mechanical aortic valve replacement from dental infection
#PICC line right upper arm
-Continue Invanz 1000 mg every 24 hours end date 02/14/2025
- Hold current Coumadin INR 2.99 will follow INR daily
- May continue Protonix 40 mg daily GI prophylaxis
#Septic emboli to brain/CVA with Subarachnoid hemorrhagic conversion as complication of bacterial endocarditis
-Hold aspirin until cleared by cardiology
#Postop anemia
#Postop anemia required 5 units PRBC 2 units of platelets and 2 units FFP
Hgb 8.1 on 02/02/2025
- Check CBC, type and screen
#HTN
BP 160/92
-Continue hydralazine 10 mg p.o. 3 times daily, amlodipine, carvedilol 12.5 mg twice daily with hold parameters
- Lisinopril on hold from [facility]
#DM 2 currently -diet controlled
#Depression/anxiety
Lorazepam 0.5 mg p.o. every 8 hours as needed anxiety, continue Prozac 40 mg daily
#Insomnia
Continue Ambien 10 mg at bedtime as needed
#History of opiate abuse
Used to be on Suboxone
Continue gabapentin 300 mg twice daily
Other PMH:
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 Diagnostic possibilities are (1) necrotic cystic changes from an acute or subacute splenic infarction or (2) a benign
primary splenic tumor.)
DVT prophylaxis
SCDs patient's INR 2.99 is on Coumadin but being held for surgery
Full code
[2025-02-03 18:45] LABS: Hematocrit 22.3 % (39.0-52.0); Hemoglobin 7.6 g/dL (13.0-18.0); Mean Corp Hgb Conc. 34.1 g/dL (33.0-37.0); Mean Corpuscular Volume 86.1 fL (80.0-94.0); Nucleated Red Blood Cells % 0 % (-); Platelet Count 236 10^3/uL (130-400); Red Cell Dist. Width 13.8 % (11.5-14.5)
[2025-02-03 19:04] LABS: ALT (SGPT) 12 U/L (0-50); AST (SGOT) 16 U/L (17-59); Albumin 2.9 g/dl (3.5-5.0); Alkaline Phosphatase 96 U/L (38-126); Blood Urea Nitrogen 31 mg/dl (9-20); Calcium 8.3 mg/dl (8.4-10.2); Carbon Dioxide 27 mmol/L (22-30); Chloride 108 mmol/L (98-107); Estimated Creatinine Clearance 46 ml/min; Glucose 94 mg/dl (70-99); Potassium 4.4 mmol/L (3.5-5.1); Sodium 138 mmol/L (135-145); Total Protein 6.0 g/dl (6.3-8.2); eGFR 42.44
[2025-02-03] MEDS: EDECRIN 50 MG PO (20:20)
[2025-02-03] MEDS: COREG 12.5 MG PO (20:20)
[2025-02-03] MEDS: NEURONTIN 300 MG PO (20:20)
[2025-02-03] MEDS: AMBIEN 10 MG PO (20:35)
[2025-02-03] MEDS: ATIVAN 0.5 MG PO (20:35)
[2025-02-03] MEDS: APRESOLINE 10 MG PO (21:05)
[2025-02-03] MEDS: INVANZ 60 MG IV (21:05)
--- NOTE | 2025-02-03 22:57 | PTCARENOTE ---
Rec'd pt as admission from ED. Pt AAO*3, VSS, and SR on TELE monitor with a BBB and 1st degree hb. Pt denies any pain but reports anxiety. PRN Ambien and Ativan given as ordered. PT claims that he takes 1mg ativan at rehab/home, JIE martinez
notified. No new order rec'd. Pt with RUE restriction. Now resting with call quesada in reach. BP elevated on arrival in the 170-180's and regularly scheduled medications given as ordered. current bp 151/100. PT aware of NPO status at midnight.
[2025-02-04] VITALS (23 sets, daily range): BP systolic 122–206; BP diastolic 71–107; BMI 22.0
--- NOTE | 2025-02-04 02:38 | PTCARENOTE ---
Pt called nursing staff requesting water. RN explained NPO status, pt state 'that doesnt matter, they wont know.' Rn reinforced education with patient. Pt then asked for additional dose of Ativan, RN explained dosing and next available dose for
pt. JIE Santos notified, no order rec'd. Pt then used call quesada to ask for Imodium, RN explained indication for medication is for loose stool. Pt with no bm this shift. JIE came to bedside to restate doctors ordered for NPO, Imodium, and
current Ativan order. RN offered patient other comfort measures such as, TV, [place], additional pillows, and fan. Pt declined and continues to ask for water.
[2025-02-04 03:31] LABS: Hematocrit 21.2 % (39.0-52.0); Hemoglobin 7.2 g/dL (13.0-18.0); Mean Corp Hgb Conc. 34.0 g/dL (33.0-37.0); Mean Corpuscular Volume 85.8 fL (80.0-94.0); Nucleated Red Blood Cells % 0 % (-); Platelet Count 244 10^3/uL (130-400); Red Cell Dist. Width 13.9 % (11.5-14.5)
[2025-02-04 03:40] LABS: INR 2.34; PT 25.7 Sec (11.4-14.6)
[2025-02-04 03:58] LABS: ALT (SGPT) 11 U/L (0-50); AST (SGOT) 16 U/L (17-59); Albumin 2.8 g/dl (3.5-5.0); Alkaline Phosphatase 88 U/L (38-126); Blood Urea Nitrogen 32 mg/dl (9-20); Calcium 8.0 mg/dl (8.4-10.2); Carbon Dioxide 24 mmol/L (22-30); Chloride 112 mmol/L (98-107); Estimated Creatinine Clearance 46 ml/min; Glucose 110 mg/dl (70-99); Magnesium 1.7 mg/dl (1.6-2.3); Potassium 4.7 mmol/L (3.5-5.1); Sodium 140 mmol/L (135-145); Total Protein 5.7 g/dl (6.3-8.2); eGFR 42.44
[2025-02-04] MEDS: ATIVAN 0.5 MG PO (04:45)
[2025-02-04] MEDS: ALDACTONE 25 MG PO (07:32)
[2025-02-04] MEDS: NEURONTIN 300 MG PO ×2 (07:33→19:33)
[2025-02-04] MEDS: FEOSOL 325 MG PO (07:33)
[2025-02-04] MEDS: EDECRIN 50 MG PO ×2 (07:33→19:30)
[2025-02-04] MEDS: APRESOLINE 10 MG PO (07:33)
[2025-02-04] MEDS: NORVASC 10 MG PO (07:33)
[2025-02-04] MEDS: MUCINEX 600 MG PO (07:33)
[2025-02-04] MEDS: PROTONIX 40 MG PO (07:33)
[2025-02-04] MEDS: FLUSH (NSS) 1 FLUSH IV (07:34)
[2025-02-04] MEDS: VISBIOME 2 CAP PO (07:34)
[2025-02-04] MEDS: COREG 12.5 MG PO ×2 (07:34→19:32)
[2025-02-04] MEDS: PROZAC 40 MG PO (07:34)
--- NOTE | 2025-02-04 09:49 | CM ---
Reviewed chart. Met with Mr. Kwan to review discharge plans. He states prior to admission he was at [facility] [place] for acute rehab. Telephone call to [facility] [place] Liaison to review. She states he still has acute
rehab. goals and they will be able to have him return to finish the program. He will need physical and occupational therapy evaluations for [facility] to review. He states prior to admission he resides with his spouse in a two story home with one
step to enter. He states he has a full flight of steps to get to bedroom/full bathroom. He states he has a powder room on the first floor. He states prior to admission he was ambulating with a single point cane or walker. He does not have a
single point cane and walker at home. His lost dose of IV ABX is 02/14/25. He does not have any DME in the home. He states he has prescription plan and uses [facility]. Medical work-up in progress. The discharge plan is to return to [facility] [place] if approved for admission when medically stable.
--- NOTE | 2025-02-04 10:20 | PTCARENOTE ---
Addendum entered by Farrah Willis RN 02/04/25 10:31:
+2 BLLE and pedal edema is noted, elevated his legs on pillows
Original Note:
The patient is aaox3, his BPs are elevated both systolic and diastolic post am BP medication administration. Dr. Collado notified. NSR with a 1st degree AVB and a prolong QT is noted on the monitor. Lungs sounds are shallow throughout and decreased BB
with the left decreased a 1/[address] up. I taught and encourage deep breathing with him. A loud mechanical click is heard. His old surgical sites (sternum/CT x4) are UVALDO with some scabbing noted. He has no complaint of pain or SOB. His urine is bulmaro
in color. I discussed his plan of care with him and what to expect with a pericardiocentesis. All his questions were addressed.
--- NOTE | 2025-02-04 10:51 | CONSULT.CT ---
Consultation
-
Date/Time Consultation Requested: 02/03/25
Date/Time Consultation Performed: 02/04/25
Requesting Provider: JIE Montero
Performing Provider: JIE Butler for Dr. Kranthi Denney MD
Reason for Consultation: Pericardial Effusion
Patient History
Physicians
Family Physician: Luis Turner MD
Outpatient Disability Advocate: Dr. Mcgowan ([facility])
Inpatient Disability Advocate: [facility]
History of Present Illness
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 Kranthi Denney
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 for
evaluation of pericardial effusion.
Mr. Kwan was initially seen at [facility] in December and was found to have bacterial endocarditis secondary to a dental infection complicated by splenic infarct and CORNELIO. He was transferred to [facility] in which he underwent an
emergent AVR with placement of mechanical valve. Postoperatively he was followed by neurology, nephrology, infectious disease, and admin assistant. He was initiated on Coumadin for his mechanical AVR. He was ultimately discharged on postop day 18
(01/14/25) to SNF.
On January 18, he was readmitted from SNF through hospitalist service with decompensated heart failure. A TTE during his hospitalization showed normal aortic valve functioning and hyperdynamic LV. Cardiology was consulted to assist in medical
management. He underwent a left thoracentesis on January 19 for 850 mL. On January 27 he was ultimately discharged to [place] [facility] following the approval of his medical assistance.
While at 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
to [facility] emergency room on February 03, 2025 for further evaluation. 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 Mr. Kwan
denies any lightheadedness, dizziness, dyspnea on exertion, chest pain, chest tightness, orthopnea, or decline in his exercise tolerance. He reports his bilateral lower extremity edema has not worsened. He reports the ability to ambulate greater
than 100 feet without any cardiopulmonary complaints while in rehab. He is currently planned to have a pericardicentesis per the cardiology team.
Past Medical History
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
- s/p mechanical AVR (23 mm On-X) with septal myectomy and debridement of mitral chordae on 12/27/[address] Kranthi Denney
- Chronic anticoagulation (Warfarin)
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
- CKD
- LBBB
- Splenic infarct
- Opioid misuse (prior suboxone use)
- Hypertension
- HFpEF
- Anemia of chronic disease
- Anxiety/Depression
Past Surgical History
Past Surgical History: Valve
mechanical AVR (23 mm On-X) with septal myectomy and debridement of mitral chordae on 12/27/[address] Kranthi Denney
Social History
Alcohol: None
Tobacco: Non-Smoker
Employment: Not Employed
Allergies
Allergy/AdvReac Type Severity Reaction Status Date / Time
Sulfa (Sulfonamide Allergy Anaphylaxis Verified 01/17/25 17:21
Antibiotics)
sulfite Allergy Anaphylaxis Verified 01/17/25 17:21
Home Medications
�Medication �Instructions �Recorded �Confirmed �Type
fluoxetine 40 mg capsule 40 mg PO DAILY Mental 12/26/24 02/03/25 History
Health/Anxiety
Ertapenem [Invanz] 1,000 mg 120 mls/hr IV Q24H strep mutans 01/08/25 02/03/25 Rx
endocarditis (end date 02/14/25)
amlodipine 10 mg tablet 10 mg PO DAILY Blood pressure #0 01/08/25 02/03/25 Rx
tabs
pantoprazole 40 mg tablet,delayed 40 mg PO DAILY GI prophylaxis on 01/08/25 02/03/25 Rx
release Coumadin #0 tabs
spironolactone 25 mg tablet 25 mg PO DAILY Heart Failure #0 01/13/25 02/03/25 Rx
tabs
acetaminophen 325 mg tablet 650 mg PO Q6HPRN PRN mild pain 01/17/25 02/03/25 History
(Tylenol)
bisacodyl 10 mg rectal suppository 10 mg AL BIDPRN PRN constipation 01/17/25 02/03/25 History
ethacrynic acid 25 mg tablet 50 mg PO BID Fluid 01/17/25 02/03/25 History
retention/Swelling and sulfa
allergy
gabapentin 300 mg capsule 300 mg PO BID Pain 01/17/25 02/03/25 History
guaifenesin 600 mg tablet, 600 mg PO DAILY Cough 01/17/25 02/03/25 History
extended release 12 hr
magnesium hydroxide 400 mg/5 mL 30 ml PO [id number] PRN if no BM in 3 01/17/25 02/03/25 History
oral suspension (Milk of Magnesia) days
lorazepam 0.5 mg tablet 0.5 mg PO Q8HPRN PRN anxiety #10 01/27/25 02/03/25 Rx
tabs
zolpidem 10 mg tablet (Ambien) 10 mg PO HS PRN insomnia #0 tabs 01/27/25 02/03/25 Rx
Lactobac no.2-Bifidobac no.1-S. 2 cap PO DAILY 02/03/25 02/03/25 History
thermo 112.5 billion cell capsule
(Visbiome)
aspirin 81 mg chewable tablet 81 mg PO DAILY 02/03/25 02/03/25 History
carvedilol 12.5 mg tablet 12.5 mg PO BID 02/03/25 02/03/25 History
clotrimazole 1 % topical cream 1 applic topical BID 02/03/25 02/03/25 History
docusate sodium 100 mg capsule 100 mg PO BID 02/03/25 02/03/25 History
ferrous sulfate 325 mg (65 mg 325 mg PO DAILY 02/03/25 02/03/25 History
iron) tablet
hydralazine 10 mg tablet 10 mg PO TID 02/03/25 02/03/25 History
lisinopril 2.5 mg tablet 2.5 mg PO .SEE BELOW 02/03/25 02/03/25 History
loperamide 2 mg tablet 2 mg PO Q6HPRN PRN diarrhea 02/03/25 02/03/25 History
sennosides 8.6 mg tablet (senna) 17.2 mg PO NOON PRN constipation 02/03/25 02/03/25 History
warfarin 1 mg tablet 1.5 mg PO QPM mechanical aortic 02/03/25 02/03/25 History
valve
Review of Systems
-
History Source: Patient
General: Reports No Symptoms
HEENT: Reports No Symptoms
Respiratory: Reports No Symptoms
Cardiac: Reports Edema
Abdomen/GI: Reports No Symptoms
: Reports No Symptoms
Musculoskeletal: Reports No Symptoms
Skin: Reports No Symptoms
Neurological: Reports No Symptoms
Vascular: Reports No Symptoms
Physical Exam
Vital Signs
Temp 99.1 F 02/04/25 07:11
Temp route: Oral 02/04/25 07:11
Pulse 76 02/04/25 08:00
Rhythm: Normal sinus rhythm 02/04/25 07:35
With- Bundle Branch Block Confi, First Degree Heart Block, Prolonged QT interval 02/04/25 07:35
Resp Rate 18 02/04/25 07:11
Blood pressure 186/107 02/04/25 07:13
Blood pressure extremity used: Left upper arm 02/04/25 07:11
Position: Sitting 02/04/25 07:11
MAP (cuff-Michelle Monitor) 131 02/04/25 07:13
MAP 113 02/03/25 14:37
SaO2 96 02/04/25 07:35
Oxygen Mode of Delivery Room air 02/04/25 07:35
Acceptable pain level during hospitalization? 0 02/03/25 14:37
Can the patient verbally communicate their pain? Yes 02/03/25 21:42
Actual Weight 69.5 kg 02/04/25 02:18
Body Mass Index (BMI) 22.0 02/04/25 02:18
Labs
02/04/25 02:25
02/04/25 02:25
PT 25.7 Sec (11.4-14.6) H 02/04/25 02:25
Exam
General: No Apparent Distress and Comfortable
HEENT: Atraumatic, PERRLA and EOMI
Respiratory: Clear
Cardiac: S1/S2, Regular Rhythm and Other (valvular click)
GI: Soft, Non Tender, Non Distended and Normal Bowel Sounds
Skin: Warm and Dry
Neuro: AO x 3, No Motor Deficits and Other (drowsy)
Extremities: Lower Level Edema and Pulses (+2 DP B/L, +2 Radial B/L)
Psych: Calm
Assessment / Plan
-
Mr. Kwan is a 49-year-old male with previous AV endocarditis complicated by septic emboli status post AVR with septal myomectomy and mitral valve chordae debridement with Dr. Denney on December 27, 2024 complicated by subarachnoid hemorrhage with
readmission for acute on chronic heart failure preserved EF who presented from [facility] [place] [facility] following an abnormal TTE showing moderate pericardial effusion without hemodynamic instability.
Pericardial Effusion
- Moderate pericardial effusion reported on TTE without hemodynamic compromise
- Cardiology team consulted.
- Plan for pericardiocentesis today with Cardiology.
- Coumadin placed on hold 02/03/25 - INR 2.34 today
Pulmonic valve thickening
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
- TAVR CT ordered, to be obtained following pericardiocentesis.
- Will continue to follow clinical course.
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
- s/p AVR (25 mm On-x) s/p explant & redo AVR (23 mm On-X), LVOT vegetation debridement, septal myomectomy/MV chord debridement on 12/27/[address] Denney
- postoperative course complicated by septic embolic CVA with hemorrhagic conversion
- On Coumadin for anticoagulation with On-x AVR
- TTE on 02/03 with AV P/M 16/, mild paravalvular AI
--- NOTE | 2025-02-04 14:02 | W.PN.CD ---
Today's Communication / Plan
-
RHC.
Pericardiocentesis.
Anemia workup.
ID consult for ABX/IE management.
Uptitrate hydralazine.
Impression / Plan
-
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 Denney on 12/27/24,
complicated by subarachnoid hemorrhage, then readmitted with acute HFpEF presents from [place] with a pericardial effusion on routine echo.
Outpatient timber surveyor: Dr. Mcgowan ([facility] at [facility])
#Pericardial effusion
-New diagnosis.
-Mild to moderate on TTE without hemodynamic compromise.
-Pericardiocentesis today.
#Infectious endocarditis
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
-S/P mechanical SAVR (initially #25 On-X but canted on implant, s/p explant & redo AVR with #23mm On-X), LVOT veg debridement, septal myomectomy/vegectomy, MV chordae vegetation resection and debridement with Dr. Denney on 12/27/2024.
-Postoperative course was complicated by bleeding and reexploration.
-Anticoagulated with warfarin.
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
-In addition to pericardiocentesis, plan for RHC to assess for significant L-->R shunt.
-ABX management per primary service/ID.
#HFpEF
-Chronic, stable.
-His most recent weight is down significantly, however he has been weighed on a bed scale at [place].
-RHC today to clarify shunt and filing pressures.
-GDMT as tolerated
-Diuretic: Ethacrynic acid 50 mg daily.
-Beta-ck: Carvedilol 12.5 mg twice daily.
-JUAN/ARB/ARNI: Lisinopril 2.5 mg daily - on hold due to slightly elevated renal markers.
-MRA: Spironolactone 25 mg.
-SGLT2i: Cost prohibitive.
-Trend Daily weight, I's/O, and BMP during admission.
#CKD
-BUN/Cr slightly up from baseline, trend.
-Lisinopril on hold.
-Hold spironolactone.
-Assess filling pressures at [facility] today.
#Hypertension
-Chronic, uncontrolled this morning.
-Assess filling pressures.
-Uptitrate hydralazine.
#Anemia
-Acute on chronic (AoCD).
-Hbg 7.2.
-Check hemeoccult, B12, Folate, thiamine, reticulocyte count.
-Low threshold for transfusion.
#SAH, due to hemorrhagic conversion, in the setting of septic emboli
#LBBB/IVCD, EKG pending
#History of opioid abuse, history of Suboxone, stable
Subjective/Interval History:
Hypertensive this morning in spite of BP meds.
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
Anemia has worsened, Hbg now 7.2.
Cr now 1.9 (typically 1.5).
DATA:
TTE, 02/03/2025:
CONCLUSIONS
Normal biventricular size and systolic function without regional wall motion
abnormality. LVEF 55 to 60%.
S/p mitral valve repair. Mild to moderate mitral regurgitation.
S/p mechanical aortic valve replacement. Peak/mean gradient 16/9 mmHg. Mild
paravalvular AI.
There appears to be a fistulous connection between the aortic root and the
proximal pulmonary artery, just after the pulmonic valve (view 29/30).
Thickening of the pulmonic valve leaflets. No obvious vegetation.
Mild to moderate pulmonic regurgitation.
Moderate to large pericardial effusion without evidence of hemodynamic
compromise.
Pleural effusion present.
Compared to prior echocardiogram on 01/17/2025, there is now pulmonic valve
thickening. Pericardial effusion has increased from small to moderate to
large. There is a fistulous connection visualized between the aortic root and
proximal pulmonary artery which was not seen previously.
Physical Exam
Vital Signs/Labs
Vital Signs
Temp Pulse Resp BP Pulse Ox
36.8 C 82 20 193/97 98
02/04/25 12:16 02/04/25 12:16 02/04/25 12:16 02/04/25 12:16 02/04/25 12:16
02/03/25 02/04/25 02/05/25
11:59 11:59 11:59
Actual Weight 69.5 kg
02/04/25 02:25
02/04/25 02:25
PT 25.7 Sec (11.4-14.6) H 02/04/25 02:25
INR 2.34 02/04/25 02:25
Magnesium 1.7 mg/dl (1.6-2.3) 02/04/25 02:25
Physical Exam
Constitutional: No acute distress and Comfortable
EENT: Anicteric and Moist mucous membranes
Cardiovascular: Rhythm & rate is regular, Pedal edema is absent, JVD pressure is normal, S1S2 is normal (S2 is crisp and mechanical.) and Murmur/rub/gallop absent
Respiratory: Respiratory effort normal, Wheeze Absent, Crackles Absent, Rhonchi Absent and Other (Decreased at bases.)
GI: Soft, Distention absent, Flat, Non tender and Normal bowel sounds
Neuro/Psych: AO x 3
Data Reviewed
-
Date of Service: February 04, 2025
Medical Decision Making: Reviewed Test Results, Independent Historian Assessment, Test Interpretation and Review of Case with other Provider
EKG: Tracing Personally Visualized and interpreted and Report Reviewed by me
Echo: Tracing Personally Visualized and interpreted and Report Reviewed by me
X-Ray/CT/US/MRI/NUC/PET: Image Personally Visualized and interpreted and Report Reviewed by me
Medical Tests (PFT, Pathology etc): Image Personally Visualized and interpreted and Report Reviewed by me
Labs: Labs Reviewed by me
Old Records: Reviewed
[2025-02-04 14:46] LABS: Urine Character Slightly Cloudy (Clear)
--- NOTE | 2025-02-04 14:48 | PTCARENOTE ---
Sent UA. His urine was a pale pink color. Earlier it was bulmaro. UA came back showing occult blood. Notified Dr. Collado and his resident Cuco Moerira.
[2025-02-04 14:54] LABS: Urine Red Blood Cell >100 /HPF (0-2)
--- NOTE | 2025-02-04 15:21 | W.PN.HOSP.TC ---
Today's Communication/Plan
-
Pericardiocentesis performed today, with 400 mL extracted and drain left in place
RHC performed today, which revealed no [id number] shunt, and moderately elevated filling pressures (PCWP 20 mmHg)
Follow-up CT coronary angiography for further elucidation of possible fistulous connection between aortic root and pulmonary artery
Monitor clinical status
Assessment / Plan
Assessment / Plan
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
anemia of chronic disease, type 2 diabetes, depression, and anxiety who presented to the [facility] emergency department from [facility] due to abnormal findings on a routine echocardiogram. Patient developed bacterial endocarditis from a
dental infection a couple months ago, which necessitated emergent mechanical aortic valve replacement, septal myomectomy, and mitral valve chordae debridement on 12/27/2024, which was complicated by septic cerebral emboli and subsequent hemorrhagic
conversion (SAH). Patient was started on warfarin for anticoagulation s/p AVR, and he was discharged from [facility] on 01/14/2025. Patient was subsequently readmitted on 01/18/2025 for decompensated HFpEF. Patient was eventually discharged to [place] [facility]
on 01/27/2025. Patient underwent a routine TTE at [facility] on 02/03/2025, which revealed a moderate to large pericardial effusion with hemodynamic stability, pulmonary valve thickening, and a fistulous connection between the aortic root and the
proximal pulmonary artery. Patient was admitted for further evaluation.
#Pericardial effusion
Echocardiogram (02/03): Per cardiology, moderate to large pericardial effusion without evidence of hemodynamic compromise.
Pericardiocentesis (02/04): 400 mL of bloody fluid extracted, drain left in place.
Continue to monitor clinical status
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
Echocardiogram (02/03): Per cardiology, fistulous connection between the aortic root and the proximal pulmonary artery, just after the pulmonic valve. Thickening of the pulmonic valve leaflets (new since echo 01/17/2025).
RHC (02/04): Per interventional cardiology, moderately elevated filling pressures (PCWP 20 mmHg). No significant change after pericardiocentesis. No significant [id number] shunt.
Coronary angiography CT pending
#Infective endocarditis s/p mechanical aortic valve replacement
Per ID, continue ertapenem through 02/14
Anticoagulation with warfarin currently on hold preprocedure today, plan to restart thereafter
#HFpEF
Echo (02/03): LVEF 55 to 60%.
Patient denies shortness of breath, no signs of fluid overload
Continue GDMT as tolerated, with spironolactone and lisinopril on hold for elevated creatinine
Trend weights, I's and O's
#Hypertension
Uncontrolled with systolics 180+ this morning
Continue amlodipine, carvedilol, hydralazine
Per cardiology, uptitrate hydralazine as needed
#Acute on chronic anemia
Hemoglobin 7.2 today, decreased from 7.6 yesterday
Patient's baseline over the past month appears to be approximately hemoglobin of 7s-8s
Iron studies consistent with anemia of chronic disease (elevated ferritin, low TIBC, low iron)
Hemolytic workup: Reticulocyte count WNL; haptoglobin, LDH pending
UA shows 4+ blood, >100 RBCs. This is similar to prior UAs in the past 6 weeks.
Monitor H&H, clinical status
Transfuse for hemoglobin <7
#CKD IIIb
Cr 1.9, BUN 32 today
Baseline over the past month appears to be approximately 1.4-1.6
Holding lisinopril and spironolactone while monitoring kidney function
Avoid nephrotoxic medication
Trend BMP
#Splenic infarct
#Subarachnoid hemorrhage
#Opioid use disorder
#Depression
#Anxiety
DVT PPx: SCDs
CODE STATUS: Full
Anticipated Discharge: 24 - 48 hours
Subjective/Interval History
-
Date of Service: February 04, 2025
Patient seen at bedside Hospital day #2. Nursing reports NAEO. Patient states he is anxious about the pericardiocentesis planned for today. Otherwise, no current complaints.
Objective Data
-
Labs:
Laboratory Results
02/04/25
02:25
WBC 7.0
Hgb 7.2 L
Hct 21.2 L
Plt Count 244
PT 25.7 H
INR 2.34
Sodium 140
Potassium 4.7
Chloride 112 H
Carbon Dioxide 24
BUN 32 H
Creatinine 1.9 H
Glucose 110 H
Calcium 8.0 L
Total Bilirubin 0.4
AST 16 L
ALT 11
Alkaline Phosphatase 88
Vital Signs:
Vital Signs
Temp Pulse Resp BP Pulse Ox
98.1 F 72 20 203/98 97
02/04/25 14:59 02/04/25 14:59 02/04/25 14:59 02/04/25 14:59 02/04/25 14:59
I&O
02/03/25 02/04/25 02/05/25
06:59 06:59 06:59
Intake Total 480 / 480
Output Total 850 / 850 925 / 925
Balance -370 / -370 -925 / -925
Review of Systems
-
History Source: Patient
Constitutional: Denies Fever, Fatigue or Chills
EENT: Reports No Symptoms Reported
Respiratory: Denies Cough, Trouble Breathing or Wheezing
Cardiac: Denies Chest Pain, Palpitations or Syncope
Abdomen/GI: Reports Other (Reports loose stools); Denies Abdominal Pain, Nausea, Vomiting or Diarrhea
Genitourinary: Reports Other (Reports 'cranberry colored' urine for the last few weeks)
Musculoskeletal: Denies Edema
Skin: Reports No Symptoms
Neuro: Denies Dizzy, Headache, Weakness, Numbness or Lightheadedness
Psych: Reports Anxious
Physical Exam
-
General: No Apparent Distress, Comfortable and Conversant; Negative Fever, Chills or Sweats
HEENT: Normocephalic and Atraumatic
Respiratory: Clear to Auscultation and Non Labored Respirations; Negative Wheezes or Crackles
Cardiac: Regular Rhythm and S1/S2; Negative Murmur, Rub, Gallop, Tachycardic or Bradycardic
GI: Soft, Nontender and Normal Bowel Sounds
Genito-urinary: No Costovertebral Tender
Musculoskeletal: No Cyanosis and No Edema
Neuro: Awake, AO x 3 and Nonfocal/Grossly Intact; Negative Tremors
Psych: Anxious
[2025-02-04 15:36] LABS: Reticulocyte Count 1.2 % (0.4-2.8)
[2025-02-04 15:56] LABS: Iron 26 ug/dl (49-181)
--- NOTE | 2025-02-04 16:05 | W.PN.UPDATE ---
Update Note
Progress Note Update
Seen and examined by me independently in collaboration with the medical reception specialist.
Lab data and imaging data reviewed.
Addendum as below :
Transfer from [facility] due to discovery of pericardial effusion. Patient denies any chest pain or shortness of breath. He thinks he was progressing well with the PT.
Denies any fever or chills.
Chest clear
Pericardiocentesis and right heart cath today.
TAVR CT due to suspicion of fistulous connection within aortic root and Prox PA.
Continue with IV antibiotics for his infective endocarditis-consult ID
Cards/CT surgery input appreciated
[2025-02-04 16:06] LABS: Total Iron Binding Capacity 236 ug/dl (261-462)
--- NOTE | 2025-02-04 16:48 | ITS.CL.CATH ---
Merchandising Specialist - Catheterization
Cardiac Catheterization
Procedure Report:
RIGHT HEART CATHETERIZATION/PERICARDIOCENTESIS
Date of Procedure: 02/04/2025
Referring: Kranthi Denney M.D.
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
RHC ACCESS:
5 Uzbek left antecubital vein using a modified Seldinger technique with a micropuncture kit under ultrasound guidance.
RHC CATHETERS:
5 Uzbek balloon wedge.
PERICARDIOCENTESIS ACCESS:
Approach: Apical
Sheath/Drain size (Fr) 6
PROCEDURE:
The patient was prepped and draped in standard sterile fashion. The area for antecubital access was anesthetized with 1% lidocaine. Under ultrasound guidance, the left basilic vein was punctured using a modified Seldinger technique. A 5 Uzbek
sheath was inserted into the basilic vein. A 5 Uzbek balloon wedge catheter was advanced through the sheath into the superior vena cava. An SVC oxygen saturation was drawn. The catheter was advanced into the inferior vena cava and an oxygen
saturation was drawn. Right atrial, right ventricular, mean PA, right PA and left PA sats were drawn. Cardiac output was calculated using the Kody equation. The PA, wedge, RV and RA pressures were measured.
We then turned our attention to the pericardiocentesis. Echocardiogram was used to ascertain the best approach vector. A(n) apical approach was selected. The fifth intercostal space along the mid axillary line was anesthetized with 1% lidocaine.
Under ultrasound guidance, a micropuncture needle was advanced into the pericardial space under negative pressure. After obtaining flashback of pericardial fluid, the micropuncture wire was advanced into the pericardial space and the needle was
removed. The micropuncture sheath was advanced over the wire and the wire and dilator were removed. Agitated saline was injected through the micropuncture sheath confirming its presence in the pericardial space on echocardiography. A 0.035 inch
J-wire was advanced through the micropuncture sheath and into the pericardial space. The micropuncture sheath was removed and a 6 Uzbek sheath was advanced over the 0.035 inch wire. A pigtail catheter was advanced through the sheath over the J-wire
and placed in the pericardial space. The J-wire was removed. The pericardial pressure was measured. A sufficient sample of pericardial fluid was removed and sent for laboratory testing (hemoglobin, hematocrit, white blood cell count, LDH, albumin,
total protein, cytology and culture). The pigtail catheter was then connected to a Vacutainer and the pericardial space was evacuated. Serial echocardiography confirmed reduction in the pericardial effusion from severe to trace. The 6 Uzbek sheath
was sutured into place. The pigtail catheter was likewise sutured into place then curled around the sheath and covered by a sterile Tegaderm. Repeat pericardial pressure was measured, confirming significant reduction. The pigtail catheter was then
connected to a Vacutainer.
Right heart catheterization was repeated demonstrating no significant change in the patient's filling pressures. The 5 Uzbek sheath was removed and manual pressure was held for hemostasis.
Weight (kg): 69.4
Pre-Pericardiocentesis
PA (s/d/x mmHg): 45/25/32
PCWP (a/v/x mmHg): 22/23/20
RV (s/x mmHg): 45/12
RA (a/v/x mmHg): 14//12
SVC SvO2 (%): 61.5
IVC SvO2 (%): 67.5
MV SvO2 (%): 63.0
RA SvO2 (%): 61.2
RV SvO2 (%): 58.1
LPA SvO2 (%): 59.5
RPA SvO2 (%): 59.0
SaO2 (%): 96.0 (assumed)
Hbg (g/dL): 7.8
Kody
CO (liters/minute): 5.97
CI (liters/minute/m2): 3.20
Thermodilution
CO (liters/minute): Not performed.
CI (liters/minute/m2): Not performed.
TPG (mmHg): 12
PVR (Foreman Units): 2.01
AVO2 Difference (Volume %): 3.50
Post-Pericardiocentesis
PA (s/d/x mmHg): /
PCWP (a/v/x mmHg):
RV (s/x mmHg):
RA (a/v/x mmHg):
Pericardial Volume (mL): 400
Effusion type: Bloody
Non-effusion blood loss (mL): None
Pericardial pressures
Pre drainage (mmHg): 13
Post drainage (mmHg): 6
Radiation (mGy): 70.98
DAP (cm2.Gy): 7.6400
Fluoroscopy time (minutes): 7.2
CONCLUSION:
1. Medium to large size, bloody pericardial effusion status post successful percutaneous drainage for 400 mL of bloody fluid with significant reduction in intrapericardial pressure but without significant change in filling pressures.
2. Moderately elevated filling pressures (PCWP = 19-20 mmHg at 69.4 kg), unchanged after pericardiocentesis.
3. Mild, postcapillary pulmonary hypertension (mean PA = 32 mmHg, PCWP = 20 mmHg, cardiac output = 5.97 L/min, PVR = 2.01 Foreman units), WHO group 2.
4. Normal cardiac index (3.20 L/min/m�).
5. No evidence of significant intracardiac [id number]-fr-yoqej shunt.
RECOMMENDATIONS:
1. Expectant management after right heart catheterization via right antecubital approach.
2. Expectant management of pericardiocentesis after right apical approach.
3. Continue modest diuresis given elevated filling pressures as hemodynamics will tolerate.
4. Monitor drain output. When drain output is <1 mL/h x 12-24 hours, we can consider repeat echocardiogram and discontinuing the pericardial drain.
5. Pericardial fluid has been dispatched to the lab for routine analysis, cytology, culture and cell counts.
Roman Carrillo, DO, FACC, FACP
[2025-02-04] MEDS: APRESOLINE 25 MG PO ×2 (17:02→21:40)
[2025-02-04 17:09] LABS: Ferritin 639.0 ng/ml (17.9-464.0)
[2025-02-04 17:24] LABS: Vitamin B12 456 pg/ml (239-931)
--- NOTE | 2025-02-04 17:33 | PTCARENOTE ---
Received the patient from the tag and label cutter in his bed. He is aaox3, BP elevated at 206/73. Hydralazine given as ordered. Left brachial dressing c/d/i. His left radial pulse is noted. Pericardial drain in place with scant bloody drainage. He has no
complaint of pain. He does state that his 'heart feels weird' but 'feels much better'.
[2025-02-04 17:37] LABS: Body Fluid Second Tech CF
[2025-02-04 19:09] LABS: LDH 215 U/L (120-246)
[2025-02-04 19:20] LABS: Body Fluid Granulocytes 53 %; Body Fluid Mesothelials 1 %
[2025-02-04] MEDS: TYLENOL 650 MG PO (19:33)
--- NOTE | 2025-02-04 20:52 | PTCARENOTE ---
Rec'd pt at change of shift. Pt AAO*3, VSS, and SR w BBB and 1st degree hb. Pt with R pericardial drain, pt complains of pain at drain site. PRN Tylenol given. Pt resting with L brachial site CDI. PT updated on plan of care, now resting with
call quesada in reach. See MAR and flowchart for full pt care and assessment. PT refused colace with 20:00 medications.
[2025-02-04] MEDS: ATIVAN 1 MG PO (21:41)
[2025-02-04] MEDS: AMBIEN 10 MG PO (21:41)
[2025-02-04] MEDS: INVANZ 60 MG IV (21:41)
[2025-02-05] VITALS (12 sets, daily range): BP systolic 114–198; BP diastolic 73–112; BMI 21.8
[2025-02-05 05:16] LABS: Hematocrit 21.7 % (39.0-52.0); Hemoglobin 7.2 g/dL (13.0-18.0); Mean Corp Hgb Conc. 33.2 g/dL (33.0-37.0); Mean Corpuscular Volume 87.1 fL (80.0-94.0); Nucleated Red Blood Cells % 0 % (-); Platelet Count 227 10^3/uL (130-400); Red Cell Dist. Width 13.8 % (11.5-14.5)
[2025-02-05 05:22] LABS: INR 1.56; PT 19.2 Sec (11.4-14.6)
[2025-02-05 05:41] LABS: ALT (SGPT) < 10 U/L (0-50); AST (SGOT) 14 U/L (17-59); Albumin 2.7 g/dl (3.5-5.0); Alkaline Phosphatase 85 U/L (38-126); Blood Urea Nitrogen 34 mg/dl (9-20); Calcium 8.3 mg/dl (8.4-10.2); Carbon Dioxide 25 mmol/L (22-30); Chloride 109 mmol/L (98-107); Estimated Creatinine Clearance 45 ml/min; Glucose 88 mg/dl (70-99); Magnesium 1.7 mg/dl (1.6-2.3); Potassium 4.6 mmol/L (3.5-5.1); Sodium 138 mmol/L (135-145); Total Protein 5.7 g/dl (6.3-8.2); eGFR 42.44
--- NOTE | 2025-02-05 06:43 | W.PN.HOSP.TC ---
Addendum entered and electronically signed by Donald Collado MD 02/05/25 14:02:
Seen and examined by me independently in collaboration with the medical biller coder.
Lab data and imaging data reviewed.
Addendum as below :
Status post pericardiocentesis with drain in situ. Continue to follow output and less than 1 mL/h for 12 to 24 hours repeat an echo per cardiology.
He is without chest pain or shortness of breath.
Continue with antibiotics IV.
Blood pressure tx adjustments by cardiology noted.
Patient is interested to go home if possible from this hospitalization and then return back to [facility]. He said he did well and had only 5 more days left in rehab.
Original Note:
Today's Communication/Plan
-
Monitor clinical status s/p pericardiocentesis and RHC yesterday.
Follow-up infectious evaluation of pericardial fluid.
Assessment / Plan
Assessment / Plan
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
anemia of chronic disease, type 2 diabetes, depression, and anxiety who presented to the [facility] emergency department from [facility] due to abnormal findings on a routine echocardiogram. Patient developed bacterial endocarditis from a
dental infection a couple months ago, which necessitated emergent mechanical aortic valve replacement, septal myomectomy, and mitral valve chordae debridement on 12/27/2024, which was complicated by septic cerebral emboli and subsequent hemorrhagic
conversion (SAH). Patient was started on warfarin for anticoagulation s/p AVR, and he was discharged from [facility] on 01/14/2025. Patient was subsequently readmitted on 01/18/2025 for decompensated HFpEF. Patient was eventually discharged to [facility]
on 01/27/2025. Patient underwent a routine TTE at [facility] on 02/03/2025, which revealed a moderate to large pericardial effusion with hemodynamic stability, pulmonary valve thickening, and a fistulous connection between the aortic root and the
proximal pulmonary artery. Patient was admitted for further evaluation.
#Pericardial effusion
Echocardiogram (02/03): Per cardiology, moderate to large pericardial effusion without evidence of hemodynamic compromise.
Pericardiocentesis (02/04): 400 mL of bloody fluid extracted, drain left in place.
Infectious evaluation (bacterial, fungal, and acid-fast bacilli cultures/smears/Gram stains) of pericardial fluid pending
Drain collecting bloody liquid this morning
Patient notes achiness at site of drainage tube on left side chest wall
Continue to monitor clinical status
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
Echocardiogram (02/03): Per cardiology, fistulous connection between the aortic root and the proximal pulmonary artery, just after the pulmonic valve. Thickening of the pulmonic valve leaflets (new since echo 01/17/2025).
RHC (02/04): Per interventional cardiology, moderately elevated filling pressures (PCWP 20 mmHg). No significant change after pericardiocentesis. No significant brcz-kx-xdwau shunt.
Coronary angiography CT (02/04): Large pericardial effusion. Large dense airspace consolidation in the lingula adjacent to the large pericardial effusion. Small bilateral pleural effusions.
#Infective endocarditis s/p mechanical aortic valve replacement
Per ID, continue ertapenem through 02/14
Anticoagulation with warfarin remains on hold s/p RHC and pericardiocentesis
#HFpEF
Echo (02/03): LVEF 55 to 60%.
Patient denies shortness of breath; 1+ pitting edema noted in bilateral lower extremities
Continue GDMT as tolerated, with lisinopril on hold for elevated creatinine
Trend weights, I's and O's
#Hypertension
Chronic, better controlled since yesterday with up titration of hydralazine per cardiology; systolics 120s-130s and diastolics 70s-80s overnight
Continue amlodipine, carvedilol, hydralazine
Per cardiology, up titrate hydralazine as needed
#Acute on chronic anemia
Hemoglobin 7.2 today, low but stable from 7.2 yesterday
Patient's baseline over the past month appears to be approximately hemoglobin of 7s-8s
Iron studies consistent with anemia of chronic disease (elevated ferritin, low TIBC, low iron)
Hemolytic workup: Reticulocyte count WNL; LDH WNL; haptoglobin pending
UA shows 4+ blood, >100 RBCs. This is similar to prior UAs in the past 6 weeks. Patient denies bloody urine overnight.
No overt signs of active bleeding
Monitor H&H, clinical status
Transfuse for hemoglobin <7
#CKD IIIb
Cr 1.9, BUN 34 today, stable relative to yesterday
Baseline over the past month appears to be approximately 1.4-1.6
UA shows 4+ blood, >100 RBCs. This is similar to prior UAs in the past 6 weeks, which was previously followed by nephrology during recent hospital stay.
Holding lisinopril while monitoring kidney function
Avoid nephrotoxic medications
Trend BMP
#Splenic infarct
#Subarachnoid hemorrhage
#Opioid use disorder
#Depression
#Anxiety
DVT PPx: SCDs
CODE STATUS: Full
Anticipated Discharge: 24 - 48 hours
Subjective/Interval History
-
Date of Service: February 05, 2025
Patient seen at the bedside on hospital day #3. Nursing reports NAEO. Patient states he is achy and fatigued today, otherwise no complaints. The achiness is at the incision site for his drainage tube on the left side of his chest wall. Patient
states 'everything went perfect' yesterday. Patient states he is urinating and having BMs without issue. He notes there is no blood in his urine the last 2 times he has urinated, improved from the 'cranberry colored' urine noted yesterday.
Objective Data
-
Labs:
Laboratory Results
02/05/25
04:52
WBC 7.1
Hgb 7.2 L
Hct 21.7 L
Plt Count 227
PT 19.2 H
INR 1.56
Sodium 138
Potassium 4.6
Chloride 109 H
Carbon Dioxide 25
BUN 34 H
Creatinine 1.9 H
Glucose 88
Calcium 8.3 L
Total Bilirubin 0.4
AST 14 L
ALT < 10
Alkaline Phosphatase 85
Vital Signs:
Vital Signs
Temp Pulse Resp BP Pulse Ox
98.3 F 71 16 122/78 95
02/05/25 04:42 02/05/25 04:42 02/05/25 04:42 02/04/25 22:20 02/05/25 04:42
I&O
02/03/25 02/04/25 02/05/25
06:59 06:59 06:59
Intake Total 480 / 480 480 / 480
Output Total 850 / 850 1425 / 1425
Balance -370 / -370 -945 / -945
Review of Systems
-
History Source: Patient
Constitutional: Reports Fatigue; Denies Fever or Chills
EENT: Reports No Symptoms Reported
Respiratory: Denies Cough, Trouble Breathing or Wheezing
Cardiac: Reports Other (Achy (but not painful) chest wall at the site of drainage tube s/p pericardiocentesis); Denies Chest Pain, Palpitations or Syncope
Abdomen/GI: Denies Abdominal Pain, Nausea, Vomiting, Diarrhea, Bloody Stools or Black Stools
Genitourinary: Denies Dysuria, Flank Pain, Difficulty Voiding or Dark Urine (No blood/redness noted last 2 times he urinated, improved from yesterday)
Musculoskeletal: Reports Edema (Bilateral lower extremities)
Skin: Reports No Symptoms
Neuro: Denies Dizzy, Headache, Weakness, Numbness or Lightheadedness
Physical Exam
-
General: No Apparent Distress, Comfortable and Conversant; Negative Fever, Chills or Sweats
HEENT: Normocephalic and Atraumatic
Respiratory: Non Labored Respirations and Decreased Breath Sounds (Mildly decreased at the bases); Negative Wheezes, Crackles or Accessory Resp Muscle Use
Cardiac: Regular Rhythm, S1/S2, Murmur (Systolic click loudest at LUSB) and Other (Drainage tube on left side chest wall clean, dry, intact; drain collecting bloody liquid); Negative Rub or Gallop
GI: Soft, Nontender, Nondistended and Normal Bowel Sounds
Genito-urinary: No Costovertebral Tender
Musculoskeletal: Cyanosis, Edema, Right Lower Extrem (1+ pitting edema) and Edema, Left Lower Extrem (1+ pitting edema)
Skin: Warm and Dry
Neuro: Awake, AO x 3, No Motor Deficits and No Sensory Deficits
Psych: Calm
[2025-02-05] MEDS: ATIVAN 1 MG PO ×2 (09:28→21:41)
[2025-02-05] MEDS: EDECRIN 50 MG PO ×2 (09:28→19:48)
[2025-02-05] MEDS: NEURONTIN 300 MG PO ×2 (09:29→19:50)
[2025-02-05] MEDS: PROTONIX 40 MG PO (09:29)
[2025-02-05] MEDS: COREG 12.5 MG PO ×2 (09:30→19:50)
[2025-02-05] MEDS: MUCINEX 600 MG PO (09:30)
[2025-02-05] MEDS: FEOSOL 325 MG PO (09:31)
[2025-02-05] MEDS: VISBIOME 2 CAP PO (09:31)
[2025-02-05] MEDS: ALDACTONE 25 MG PO (09:31)
[2025-02-05] MEDS: PROZAC 40 MG PO (09:32)
[2025-02-05] MEDS: APRESOLINE 25 MG PO ×3 (09:32→21:41)
[2025-02-05] MEDS: NORVASC 10 MG PO (09:32)
--- NOTE | 2025-02-05 10:48 | W.PN.CD ---
Today's Communication / Plan
-
Challenge with heparin gtt and restart warfarin tonight.
Monitor drain output. When drain output is < 1 mL/hour for 12-24 hours, we will repeat limited echo to document resolution of effusion and pull drain if appropriate.
Hemoccult/thiamine pending.
Normal ferritin makes likelihood of Fe deficiency almost nil.
Impression / Plan
-
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 Denney on 12/27/24,
complicated by subarachnoid hemorrhage, then readmitted with acute HFpEF presents from [place] with a pericardial effusion on routine echo.
Outpatient flight line mechanic: Dr. Mcgowan ([facility])
#Pericardial effusion
-New diagnosis.
-Mild to moderate on TTE without hemodynamic compromise.
-Pericardiocentesis removed 400 mL of bloody fluid without significant changes in filling pressures.
-Studies show fluid hematocrit = 12.8%, total protein 4.6 (serum = 5.7), LDH = 824 (serum = 215); consistent with exudate.
-Cultures show no growth to date.
-Renal function stable. Creatinine clearance = 45 mL (Cockroft-Gault) which will allow for colchicine if needed. Lack of chest pain makes this diagnosis questionable.
-Monitor drain output. We will start heparin gtt given INR of 1.56 while drain is in place to make sure bleeding is not exacerbated by anticoagulation.
-When drain output is < 1 mL/hour for 12-24 hours, we will repeat limited echo to document resolution of effusion and pull drain if appropriate.
#Infectious endocarditis
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
-S/P mechanical SAVR (initially #25 On-X but canted on implant, s/p explant & redo AVR with #23mm On-X), LVOT veg debridement, septal myomectomy/vegectomy, MV chordae vegetation resection and debridement with Dr. Denney on 12/27/2024.
-Postoperative course was complicated by bleeding and reexploration.
-I have spoken with Dr. Denney regarding anticoagulation. He is agreeable to decreasing INR goal to 1.5-2.0 (on label for On-X valve). We will restart warfarin tonight (1.5 mg QPM).
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
-ABX management per primary service/ID.
-RHC shows no significant L --> R shunt.
#HFpEF
-Chronic, stable.
-His most recent weight is down significantly, however he has been weighed on a bed scale at [place].
-RHC today to clarify shunt and filing pressures.
-GDMT as tolerated
-Diuretic: Ethacrynic acid 50 mg daily.
-Beta-ck: Increase carvedilol to 25 mg BID.
-JUAN/ARB/ARNI: Lisinopril 2.5 mg daily - on hold due to slightly elevated renal markers.
-MRA: Spironolactone 25 mg.
-SGLT2i: Cost prohibitive.
-Trend Daily weight, I's/O, and BMP during admission.
#CKD
-BUN/Cr slightly up from baseline, trend.
-Lisinopril on hold.
-RHC showed moderately elevated filling pressures (PCWP = 20 mmHg).
-Rise in Cr is not due to dehydration/decreased intravascular volume.
#Hypertension
-Chronic, remains uncontrolled.
-Continue hydralazine 25 mg TID.
-Increase carvedilol to 25 mg BID.
-Continue spironolactone 25 mg daily.
-ACEI remains on hold due to renal function.
#Anemia
-Acute on chronic (AoCD).
-Hbg 7.2.
-B12 = 456 (normal), Fe = 26 (low), Fe %Sat = 11% (low), TIBC = 236 (low), Ferritin = 639 (high), reticulocyte = 1.2% (inappropriately normal).
-Follow up hemoccult, B12, thiamine.
-Low threshold for transfusion.
#SAH, due to hemorrhagic conversion, in the setting of septic emboli
#LBBB/IVCD, EKG pending
#History of opioid abuse, history of Suboxone, stable
Subjective/Interval History:
Pericardiocentesis yesterday for 400 mL of bloody fluid. Studies consistent with exudate.
RHC showed moderately elevated filling pressures (PCWP = 20 mmHg)
Weight down 0.7 kg.
Hydralazine increased to 25 mg TID. Patient remains hypertensive.
Hbg stable at 7.2. Fe studies consistent with AoCD. Reticulocytes inappropriately normal. Thiamine pending.
DATA:
TTE, 02/03/2025:
CONCLUSIONS
Normal biventricular size and systolic function without regional wall motion
abnormality. LVEF 55 to 60%.
S/p mitral valve repair. Mild to moderate mitral regurgitation.
S/p mechanical aortic valve replacement. Peak/mean gradient 16/9 mmHg. Mild
paravalvular AI.
There appears to be a fistulous connection between the aortic root and the
proximal pulmonary artery, just after the pulmonic valve (view 29/30).
Thickening of the pulmonic valve leaflets. No obvious vegetation.
Mild to moderate pulmonic regurgitation.
Moderate to large pericardial effusion without evidence of hemodynamic
compromise.
Pleural effusion present.
Compared to prior echocardiogram on 01/17/2025, there is now pulmonic valve
thickening. Pericardial effusion has increased from small to moderate to
large. There is a fistulous connection visualized between the aortic root and
proximal pulmonary artery which was not seen previously.
Coronary CTA, 02/04/2025:
IMPRESSION:
1. LARGE MILDLY COMPLEX PERICARDIAL EFFUSION.
2. Recent surgical aortic valve replacement.
3. Mild calcific atherosclerotic plaque in the left coronary artery.
4. Small bilateral pleural effusions.
5. Large airspace consolidation in the lingula (either atelectasis or pneumonia).
6. Mild mediastinal and bilateral hilar lymphadenopathy.
7. Acute splenic infarct which appears unchanged.
RHC/Pericardiocentesis, 02/04/2025:
CONCLUSION:
1. Medium to large size, bloody pericardial effusion status post successful percutaneous drainage for 400 mL of bloody fluid with significant reduction in intrapericardial pressure but without significant change in filling pressures.
2. Moderately elevated filling pressures (PCWP = 19-20 mmHg at 69.4 kg), unchanged after pericardiocentesis.
3. Mild, postcapillary pulmonary hypertension (mean PA = 32 mmHg, PCWP = 20 mmHg, cardiac output = 5.97 L/min, PVR = 2.01 Foreman units), WHO group 2.
4. Normal cardiac index (3.20 L/min/m�).
5. No evidence of significant intracardiac mrnz-qj-jiikh shunt.
Physical Exam
Vital Signs/Labs
Vital Signs
Temp Pulse Resp BP Pulse Ox
36.9 C 70 18 174/95 97
02/05/25 07:28 02/05/25 07:31 02/05/25 07:28 02/05/25 09:30 02/05/25 09:17
02/03/25 02/04/25 02/05/25
11:59 11:59 11:59
Actual Weight 69.5 kg 68.8 kg
02/05/25 04:52
02/05/25 04:52
PT 19.2 Sec (11.4-14.6) H 02/05/25 04:52
INR 1.56 02/05/25 04:52
Magnesium 1.7 mg/dl (1.6-2.3) 02/05/25 04:52
Physical Exam
Constitutional: No acute distress and Comfortable
EENT: Anicteric and Moist mucous membranes
Cardiovascular: Rhythm & rate is regular, Pedal edema is absent, JVD pressure is normal, S1S2 is normal (S2 is crisp and mechanical.) and Murmur/rub/gallop absent
Respiratory: Respiratory effort normal, Lungs clear to auscul., Wheeze Absent, Crackles Absent and Rhonchi Absent
GI: Soft, Distention absent, Flat, Non tender and Normal bowel sounds
Neuro/Psych: AO x 3
Other: Cath Site (Apical drain site is C/D/I.)
Data Reviewed
-
Date of Service: February 05, 2025
Medical Decision Making: Reviewed Test Results, Independent Historian Assessment and Test Interpretation
EKG: Tracing Personally Visualized and interpreted and Report Reviewed by me
Echo: Tracing Personally Visualized and interpreted and Report Reviewed by me
X-Ray/CT/US/MRI/NUC/PET: Image Personally Visualized and interpreted, Report Reviewed by me, Discussed with Physician, Discussed with Patient and Discussed with Family
Medical Tests (PFT, Pathology etc): Image Personally Visualized and interpreted, Report Reviewed by me, Discussed with Physician, Discussed with Patient and Discussed with Family
Labs: Labs Reviewed by me
--- NOTE | 2025-02-05 11:52 | CM ---
Reviewed chart. Met with Mr. Kwan to review discharge plans. He asked if it was possible to be able to go home from the hospital and not return to [facility]. Will need to see his current functional level to see if he will have any skilled
care needs. He may need a walker or single point cane if he goes home from here based on physical therapy and occupational evaluations. Telephone call to [facility] Liaison to start referral for home IV abx. Faxed referral to [facility]. All but
the PICC Line information. Referral sent to [facility] to see if they can provide the Nursing Care. Telephone call to [facility] Liaison to update her. [facility] will continue to follow if it is recommended by the medical team
to return to [facility] at [place]. Medical work-up in progress. The discharge plan is to return to [facility] at [facility] going home with [facility] and [facility] if indicated when medically stable.
[2025-02-05 12:29] LABS: APTT 36.3 Sec (23.4-35.0)
[2025-02-05] MEDS: HEPARIN 4000 UNITS IV (12:51)
[2025-02-05] MEDS: HEPARIN 25000 UNITS/250 ML IV (12:57)
--- NOTE | 2025-02-05 14:18 | CON.ID ---
Consultation
-
Date/Time Consultation Requested: 02/04/2025 1616
Date/Time Consultation Performed: 02/05/2025 1400
Requesting Provider: Dr. Moreira
Performing Provider: Dr. Key
Reason for Consultation: Endocarditis
Chief Complaint / Past History
History of Present Illness
Kranthi Kwan is a 49-year-old man being evaluated at the request of Dr. Moreira regarding ongoing treatment of endocarditis. History is obtained from chart review, along with patient interview.
The patient is known to the Infectious Diseases service, having been followed on several prior hospital admissions. His initial presentation was in mid-December, and at that time, he reported that he had not been feeling well for several months with
poor oral intake and decreased overall appetite. He thought his symptomatology initially was secondary to stress from recently being laid off from work. Additionally, he also reported that he was having problems with balance and difficulty
walking. He initially presented to [facility] around 12/18/2024, and at that point in time he was found to be anemic and with CORNELIO. Blood cultures obtained at that time grew out Streptococcus mutans. MRI of the brain suggested septic emboli,
and echocardiography revealed an aortic valve vegetation. He was placed on IV antibiotics and transferred to [facility] for further care.
The patient underwent mechanical aortic valve replacement on 12/27/2024. He initially was on ceftriaxone, but subsequent valve tissue cultures grew out Enterobacter cloacae, and the patient was transitioned to ertapenem, to continue with a 6-week
course of IV abx through 02/14/2025.
The patient was discharged to a local alf facility on 01/14. The patient presented back to [facility] on 01/17 secondary to shortness of breath, progressive lower extremity edema and exertional dyspnea over the prior 24 hours.
Workup in the ER revealed a large left pleural effusion, and the patient ultimately underwent thoracentesis.
During his hospital stay he clinically improved, and he subsequently was transferred to [facility] for further rehab therapy.
Unfortunately, he continued with shortness of breath, and an echo performed on 02/03 showed a pericardial effusion. He was admitted back to the hospital for pericardiocentesis. At this point in time, he notes ongoing fatigue. He denies any fevers
or chills. He notes ongoing lower extremity edema. He denies any significant pain.
Past History
Additional Past Medical History:
HTN
DM type II
Nephrolithiasis
Subarachnoid hemorrhage
Additional Past Surgical History:
Remote history JJ stent
AVR (mechanical; 12/27/2024)
Allergy History:
Sulfa (Sulfonamide Antibiotics) Allergy (Verified 01/17/25 17:21)
Anaphylaxis
sulfite Allergy (Verified 01/17/25 17:21)
Anaphylaxis
Medications Reviewed: Yes
Current Antibiotics:
Ertapenem 1 gm IV q.24 hours (through 02/14/2025)
Social History
Tobacco: Non-Smoker
Alcohol: None
Drug: None
Personal:
Living: With Family
Employment: Not Employed
Family History
Family History: Not Pertinent
Review of Systems
Vital Signs
Temp Pulse Resp BP Pulse Ox
98.2 F 75 18 174/95 97
02/05/25 11:41 02/05/25 11:41 02/05/25 11:41 02/05/25 09:30 02/05/25 11:41
Physical Exam
Physical Exam
Constitutional: No Acute Distress, Comfortable, Chronically Ill and Non-toxic
Eyes: Pupils Equal, Pupils Round, No Conjunctival Hemorrhage and Sclera Anicteric
Oral: No Thrush and No Ulcers
Cardiovascular: Regular Rate, S1/S2 and Other (positive click); Negative S3/S4
Pulmonary: Clear; Negative Wheezes, Rales or Rhonchi
Gastrointestinal: Soft, Non Tender, Non Distended and Normal Bowel Sounds
Extremities: Edema (3+ B/L LE); Negative Splinter Hemorrhage or Janeway Lesions
Skin: Warm and Dry; Negative Rash or Jaundice
Neurological: Awake and Alert
Psychological: Calm
Lab / Diagnostic Study Results
02/05/25 04:52
Abs Immat Gran (auto) 0.1 10^3/uL (0-0.05) H 02/05/25 04:52
Absolute Neuts (auto) 4.5 10^3/uL (1.4-6.5) 02/05/25 04:52
Absolute Lymphs (auto) 1.8 10^3/uL (1.2-3.4) 02/05/25 04:52
Absolute Monos (auto) 0.8 10^3/uL (0.1-0.6) H 02/05/25 04:52
Absolute Basos (auto) 0.1 10^3/uL (0-0.2) 02/05/25 04:52
Immature Gran % 0.8 % (0-0.5) H 02/05/25 04:52
Neutrophils % 62.8 % (42.2-75.2) 02/05/25 04:52
Lymphocytes % 24.6 % (20.5-51.1) 02/05/25 04:52
Monocytes % 10.7 % (1.7-9.3) H 02/05/25 04:52
Eosinophils % 0.4 % (0-6) 02/05/25 04:52
Basophils % 0.7 % (0-2) 02/05/25 04:52
PT 19.2 Sec (11.4-14.6) H 02/05/25 04:52
INR 1.56 02/05/25 04:52
Ur Squamous Epith Cells Not Reportable 02/04/25 14:36
Microbiology Results
Micro:
02/04/25 15:49 Body Fluid Culture - Preliminary
Pericardial Fluid No Growth After 18-24 Hours
Gram Stain - Preliminary
02/04/25 15:49 Fungal Smear - Pending
Pericardial Fluid
02/04/25 15:49 Fungal Culture - Pending
Pericardial Fluid
02/04/25 15:49 Acid Fast Bacilli Smear - Pending
Pericardial Fluid Acid Fast Bacilli Culture - Pending
Imaging:
02/04/2025 ECHO (TTE): pericardial effusion reduced from large to trivial status post pericardiocentesis.
01/22/2025 Renal ultrasound with bladder: No sonographic evidence for hydronephrosis. Left intrarenal calculus noted. Mild diffuse urinary bladder wall thickening. Small pleural effusions bilaterally.
01/19/2025 CXR (portable): Interval left-sided thoracentesis without evidence of pneumothorax. Improved aeration of the left lower lung. Please see full dictation for additional detail.
01/17/2025 CT chest (PE study): No PE seen. Moderate bilateral pleural effusions. Near complete atelectasis of the left lower lobe. Small focal area of atelectasis involving the posterior lingula. Subtle band shaped focus of decreased density
involving the superior spleen suggesting a focal area of splenic infarction. There is a small fluid collection posterior to the mid to inferior sternum which is likely postsurgical seroma. No evidence of a thickened enhancing wall to suggest
abscess. Please see full dictation for additional detail.
Assessment / Plan
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
- Enterobacter cloacae also isolated from valve tissue (from enrichment broth only)
Suspected septic emboli to the brain
Subarachnoid hemorrhage
Leukocytosis; resolved
Renal insufficiency
Elevated ESR, CRP
- 01/21/25 : ESR 86, CRP <5
Pleural effusion
HTN
DM type II
Nephrolithiasis
Recommendations:
Patient status post valve replacement with mechanical AVR (12/27/2024)
Aortic valve cx: Enterobacter cloacae (on enrichment broth only) - possibly contaminant.
- To error on side of caution, treating both S. mutans and E. cloacae isolates.
-> Continue Ertapenem 1g IV q 24h x 6 weeks (through 02/14/25)
- Following weekly CBC with diff, CMP, ESR / CRP.
Care Review
Plan reviewed with: Physician (Hospitalist)
[2025-02-05] MEDS: COUMADIN 0.5 MG PO (18:31)
[2025-02-05] MEDS: COUMADIN 1 MG PO (18:31)
--- NOTE | 2025-02-05 19:46 | PTCARENOTE ---
Pt with H/H of 7.2/21.7, INR 1.56. Pt seen by . Heparin bolus and infusion started @noon. NO drainage in pericardial drain today. Pt happily walking around entire unit with walker without problem. Plan to recheck CBC at 19:00 and heme test
any stool. Telemetry shows sinus rhythm with first degree AV block, LBBB.
[2025-02-05 20:18] LABS: APTT 69.6 Sec (23.4-35.0)
[2025-02-05] MEDS: HEPARIN 2800 UNITS IV (21:40)
[2025-02-05] MEDS: AMBIEN 10 MG PO (21:41)
[2025-02-05] MEDS: INVANZ 60 MG IV (21:41)
[2025-02-05] MEDS: TYLENOL 650 MG PO (22:33)
[2025-02-06] VITALS (24 sets, daily range): BP systolic 125–180; BP diastolic 81–103; BMI 21.9
[2025-02-06 04:39] LABS: APTT 52.3 Sec (23.4-35.0); Hematocrit 20.9 % (39.0-52.0); Hemoglobin 6.9 g/dL (13.0-18.0); INR 1.61; Mean Corp Hgb Conc. 33.0 g/dL (33.0-37.0); Mean Corpuscular Volume 86.7 fL (80.0-94.0); Nucleated Red Blood Cells % 0 % (-); PT 19.7 Sec (11.4-14.6); Platelet Count 214 10^3/uL (130-400); Red Cell Dist. Width 13.9 % (11.5-14.5)
[2025-02-06] MEDS: HEPARIN 5500 UNITS IV (04:54)
[2025-02-06 05:03] LABS: ALT (SGPT) < 10 U/L (0-50); AST (SGOT) 15 U/L (17-59); Albumin 2.7 g/dl (3.5-5.0); Alkaline Phosphatase 83 U/L (38-126); Blood Urea Nitrogen 33 mg/dl (9-20); Calcium 8.0 mg/dl (8.4-10.2); Carbon Dioxide 24 mmol/L (22-30); Chloride 108 mmol/L (98-107); Estimated Creatinine Clearance 43 ml/min; Glucose 85 mg/dl (70-99); Magnesium 1.6 mg/dl (1.6-2.3); Potassium 4.5 mmol/L (3.5-5.1); Sodium 137 mmol/L (135-145); Total Protein 5.6 g/dl (6.3-8.2); eGFR 39.91
--- NOTE | 2025-02-06 07:05 | W.PN.CD ---
Today's Communication / Plan
-
MVI.
Transfuse one unit of PRBCs.
Follow up folate, thiamine, hemoccult.
Repeat limited echo to assess for any recurrence of effusion.
If effusion remains resolved, we will pull drain.
Low threshold for hematology consultation (though this may be deferred to outpatient).
PT/OT consult to assess need to return to rehab vs. home.
If drain pull is uneventful and he does not need further rehab, he can probably be discharged. I will discuss with hospitalist.
Impression / Plan
-
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 Denney on 12/27/24,
complicated by subarachnoid hemorrhage, then readmitted with acute HFpEF presents from [facility] with a pericardial effusion on routine echo.
Outpatient bottom brusher: Dr. Mcgowan ([facility])
#Pericardial effusion
-New diagnosis.
-Mild to moderate on TTE without hemodynamic compromise.
-Pericardiocentesis removed 400 mL of bloody fluid without significant changes in filling pressures.
-Studies show fluid hematocrit = 12.8%, total protein 4.6 (serum = 5.7), LDH = 824 (serum = 215); consistent with exudate.
-Cultures show no growth to date.
-Renal function stable. Creatinine clearance = 45 mL (Cockroft-Gault) which will allow for colchicine if needed. Lack of chest pain makes this diagnosis questionable.
-Drain output nil on anticoagulation. Repeat limited echo. If effusion remains resolved, we will pull drain.
#Infectious endocarditis
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
-S/P mechanical SAVR (initially #25 On-X but canted on implant, s/p explant & redo AVR with #23mm On-X), LVOT veg debridement, septal myomectomy/vegectomy, MV chordae vegetation resection and debridement with Dr. Denney on 12/27/2024.
-Postoperative course was complicated by bleeding and reexploration.
-I have spoken with Dr. Denney regarding anticoagulation. He is agreeable to decreasing INR goal to 1.5-2.0 (on label for On-X valve). We will restart warfarin tonight (1.5 mg QPM).
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
-ABX management per primary service/ID.
-RHC shows no significant L --> R shunt.
#HFpEF
-Chronic, stable.
-His most recent weight is down significantly, however he has been weighed on a bed scale at [facility].
-RHC today to clarify shunt and filing pressures.
-GDMT as tolerated
-Diuretic: Ethacrynic acid 50 mg daily.
-Beta-ck: Carvedilol to 25 mg BID.
-JUAN/ARB/ARNI: Lisinopril 2.5 mg daily - on hold due to slightly elevated renal markers.
-MRA: Spironolactone 25 mg.
-SGLT2i: Cost prohibitive.
-Trend Daily weight, I's/O, and BMP during admission.
#CKD
-BUN/Cr slightly up from baseline, trend.
-Lisinopril on hold.
-RHC showed moderately elevated filling pressures (PCWP = 20 mmHg).
-Rise in Cr is not due to dehydration/decreased intravascular volume.
#Hypertension
-Chronic, remains uncontrolled.
-Continue hydralazine 25 mg TID.
-Continue carvedilol to 25 mg BID.
-Continue spironolactone 25 mg daily.
-ACEI remains on hold due to renal function.
#Anemia
-Acute on chronic (AoCD).
-Hbg 6.9.
-B12 = 456 (normal), Fe = 26 (low), Fe %Sat = 11% (low), TIBC = 236 (low), Ferritin = 639 (high), reticulocyte = 1.2% (inappropriately normal).
-Follow up hemoccult, folate, thiamine.
-Transfuse 1 unit PRBCs (this will effectively replace any true Fe deficiency, though ferritin suggests that his Fe levels are actually normal).
-Add MVI.
#SAH, due to hemorrhagic conversion, in the setting of septic emboli
#LBBB/IVCD, EKG pending
#History of opioid abuse, history of Suboxone, stable
Subjective/Interval History:
Heparin restarted as a bridge. Warfarin restarted last evening.
Drain output is nil.
Hbg down to 6.9.
Thiamine/haptoglobin/hemoccult still pending.
DATA:
TTE, 02/03/2025:
CONCLUSIONS
Normal biventricular size and systolic function without regional wall motion
abnormality. LVEF 55 to 60%.
S/p mitral valve repair. Mild to moderate mitral regurgitation.
S/p mechanical aortic valve replacement. Peak/mean gradient 16/9 mmHg. Mild
paravalvular AI.
There appears to be a fistulous connection between the aortic root and the
proximal pulmonary artery, just after the pulmonic valve (view 29/30).
Thickening of the pulmonic valve leaflets. No obvious vegetation.
Mild to moderate pulmonic regurgitation.
Moderate to large pericardial effusion without evidence of hemodynamic
compromise.
Pleural effusion present.
Compared to prior echocardiogram on 01/17/2025, there is now pulmonic valve
thickening. Pericardial effusion has increased from small to moderate to
large. There is a fistulous connection visualized between the aortic root and
proximal pulmonary artery which was not seen previously.
Coronary CTA, 02/04/2025:
IMPRESSION:
1. LARGE MILDLY COMPLEX PERICARDIAL EFFUSION.
2. Recent surgical aortic valve replacement.
3. Mild calcific atherosclerotic plaque in the left coronary artery.
4. Small bilateral pleural effusions.
5. Large airspace consolidation in the lingula (either atelectasis or pneumonia).
6. Mild mediastinal and bilateral hilar lymphadenopathy.
7. Acute splenic infarct which appears unchanged.
RHC/Pericardiocentesis, 02/04/2025:
CONCLUSION:
1. Medium to large size, bloody pericardial effusion status post successful percutaneous drainage for 400 mL of bloody fluid with significant reduction in intrapericardial pressure but without significant change in filling pressures.
2. Moderately elevated filling pressures (PCWP = 19-20 mmHg at 69.4 kg), unchanged after pericardiocentesis.
3. Mild, postcapillary pulmonary hypertension (mean PA = 32 mmHg, PCWP = 20 mmHg, cardiac output = 5.97 L/min, PVR = 2.01 Foreman units), WHO group 2.
4. Normal cardiac index (3.20 L/min/m�).
5. No evidence of significant intracardiac [id number] shunt.
Physical Exam
Vital Signs/Labs
Vital Signs
Temp Pulse Resp BP Pulse Ox
36.9 C 75 18 147/95 95
02/06/25 03:51 02/06/25 04:00 02/06/25 03:51 02/06/25 03:52 02/06/25 03:51
02/04/25 02/05/25 02/06/25
11:59 11:59 11:59
Actual Weight 69.5 kg 68.8 kg 69.2 kg
02/06/25 03:55
02/06/25 03:55
PT 19.7 Sec (11.4-14.6) H 02/06/25 03:55
INR 1.61 02/06/25 03:55
APTT 52.3 Sec (23.4-35.0) H 02/06/25 03:55
Magnesium 1.6 mg/dl (1.6-2.3) 02/06/25 03:55
Physical Exam
Constitutional: No acute distress and Comfortable
EENT: Anicteric and Moist mucous membranes
Cardiovascular: Rhythm & rate is regular, JVD pressure is normal, Pedal edema present, S1S2 is normal (S2 is crisp and mechanical.) and Murmur/rub/gallop absent
Respiratory: Respiratory effort normal, Lungs clear to auscul., Wheeze Absent, Crackles Absent and Rhonchi Absent
GI: Soft, Distention absent, Flat, Non tender and Normal bowel sounds
Neuro/Psych: AO x 3
Other: Cath Site (Apical drain in place, C/D/I.)
Data Reviewed
-
Date of Service: February 06, 2025
Medical Decision Making: Reviewed Test Results, Independent Historian Assessment and Test Interpretation
EKG: Tracing Personally Visualized and interpreted and Report Reviewed by me
Echo: Tracing Personally Visualized and interpreted, Report Reviewed by me and Ordered by me
X-Ray/CT/US/MRI/NUC/PET: Image Personally Visualized and interpreted and Report Reviewed by me
Medical Tests (PFT, Pathology etc): Image Personally Visualized and interpreted and Report Reviewed by me
Labs: Labs Reviewed by me
[2025-02-06] MEDS: ATIVAN 1 MG PO ×2 (07:28→21:56)
[2025-02-06] MEDS: PROZAC 40 MG PO (08:44)
[2025-02-06] MEDS: VISBIOME 2 CAP PO (08:44)
[2025-02-06] MEDS: APRESOLINE 25 MG PO ×3 (08:44→21:56)
[2025-02-06] MEDS: THERAGRAN 1 TABLET PO (08:44)
[2025-02-06] MEDS: ALDACTONE 25 MG PO (08:44)
[2025-02-06] MEDS: NEURONTIN 300 MG PO ×2 (08:44→19:50)
[2025-02-06] MEDS: EDECRIN 50 MG PO ×2 (08:44→19:50)
[2025-02-06] MEDS: PROTONIX 40 MG PO (08:44)
[2025-02-06] MEDS: COREG 25 MG PO ×2 (08:45→19:51)
[2025-02-06] MEDS: MUCINEX 600 MG PO (08:45)
[2025-02-06] MEDS: NORVASC 10 MG PO (08:45)
[2025-02-06] MEDS: FEOSOL 325 MG PO (08:45)
--- NOTE | 2025-02-06 09:08 | PN.CDI ---
CDI
- -
CDI:
Physician Documentation Request
Admit Date: 02/03/25 19:09
Dear Doctor Tobias/Resident,
Please review the following and provide your response in the progress notes.
Clinical Indicators:
Pt admitted with pericardial effusion
Documented per nursing wound care note 02/03,' Present on admission sacrum pressure injury stage 1 ..treatment provided adhesive foam...'
Physician documentation of the type and location of wounds is required for compliant documentation. Based on the above clinical findings and your assessment, please provide the following in your progress note:
1. Location of the ulcer/wound, including laterality.
2. Type (etiology) of ulcer/wound:
- Pressure (decubitus) ulcer
- Non-pressure ulcer
- Other ( please specify)
Use of terms such as suspected, likely, concern for, or probable (associated with a specific diagnosis that is being evaluated, monitored, or treated as if it exists) are acceptable and can be coded in the inpatient setting, when documented at the
time of discharge.
Thank you,
Mecca Cates RN
CDI Specialist
[place] [facility]
Please use your independent medical judgment in providing your response.
*Source: National Pressure Ulcer Advisory Panel (NPUAP)
--- NOTE | 2025-02-06 10:13 | W.PN.HOSP.TC ---
Today's Communication/Plan
-
Follow-up TTE for follow-up evaluation of pleural effusion s/p pericardiocentesis
Continue to follow infectious evaluation pericardial fluid
Plan for discharge to home/rehab facility, pending TTE and PT/OT eval
Assessment / Plan
Assessment / Plan
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
anemia of chronic disease, type 2 diabetes, depression, and anxiety who [facility] to the [facility] emergency department [facility] due to abnormal findings on a routine echocardiogram. Patient developed bacterial endocarditis from a
dental infection a couple months ago, which necessitated emergent mechanical aortic valve replacement, septal myomectomy, and mitral valve chordae debridement on 12/27/2024, which was complicated by septic cerebral emboli and subsequent hemorrhagic
conversion (SAH). Patient was started on warfarin for anticoagulation s/p AVR, and he was discharged from [facility] on 01/14/2025. Patient was subsequently readmitted on 01/18/2025 for decompensated HFpEF. Patient was eventually discharged to [facility]
on 01/27/2025. Patient underwent a routine TTE at [facility] on 02/03/2025, which revealed a moderate to large pericardial effusion with hemodynamic stability, pulmonary valve thickening, and a fistulous connection between the aortic root and the
proximal pulmonary artery. Patient was admitted for further evaluation.
#Pericardial effusion
Echocardiogram (02/03): Per cardiology, moderate to large pericardial effusion without evidence of hemodynamic compromise.
Pericardiocentesis (02/04): 400 mL of bloody fluid extracted, drain left in place.
Infectious evaluation of pericardial fluid:
-Bacteria culture: NGTD
- Fungal and acid-fast bacillus cultures, smears pending
Fluid collection in pericardial drain unchanged from yesterday
TTE later today for follow-up evaluation of pericardial effusion s/p pericardiocentesis
Continue to monitor clinical status
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
Echocardiogram (02/03): Per cardiology, fistulous connection between the aortic root and the proximal pulmonary artery, just after the pulmonic valve. Thickening of the pulmonic valve leaflets (new since echo 01/17/2025).
RHC (02/04): Per interventional cardiology, moderately elevated filling pressures (PCWP 20 mmHg). No significant change after pericardiocentesis. No significant lpla-do-abkud shunt.
Coronary angiography CT (02/04): Large pericardial effusion. Large dense airspace consolidation in the lingula adjacent to the large pericardial effusion. Small bilateral pleural effusions.
#Infective endocarditis s/p mechanical aortic valve replacement
Per ID, continue ertapenem through 02/14
Per cardiology, patient restarted on anticoagulation with warfarin
#HFpEF
Echo (02/03): LVEF 55 to 60%.
Patient denies shortness of breath; trace edema noted in bilateral lower extremities
Continue GDMT as tolerated, with lisinopril on hold for elevated creatinine
Trend weights, I's and O's
#Hypertension
Chronic, well-controlled today
Continue amlodipine, carvedilol, hydralazine
Per cardiology, up titrate hydralazine as needed
#Acute on chronic anemia
Hemoglobin 6.9 today, decreased from 7.2 yesterday
Transfuse 1 unit PRBCs today (02/06)
Patient's baseline over the past month appears to be approximately hemoglobin of 7s-8s
Iron studies consistent with anemia of chronic disease (elevated ferritin, low TIBC, low iron)
Hemolytic workup: Reticulocyte count WNL; LDH WNL; haptoglobin pending
UA shows 4+ blood, >100 RBCs. This is similar to prior UAs in the past 6 weeks. Patient denies bloody urine last 2 days.
No overt signs of active bleeding
Monitor H&H, clinical status
Transfuse for hemoglobin <7
#CKD IIIb
Cr 2.0, BUN 33 today, stable relative to yesterday
Baseline over the past month appears to be approximately 1.4-1.6
UA shows 4+ blood, >100 RBCs. This is similar to prior UAs in the past 6 weeks, which was previously followed by nephrology during recent hospital stay.
Holding lisinopril while monitoring kidney function
Avoid nephrotoxic medications
Trend BMP
#Splenic infarct
#Subarachnoid hemorrhage
#Opioid use disorder
#Depression
#Anxiety
DVT PPx: SCDs
CODE STATUS: Full
Disposition: PT/OT eval pending. Per CM, consider return to [facility] versus home with home care.
Anticipated Discharge: Within 24 hours
Subjective/Interval History
-
Date of Service: February 06, 2025
Patient is seen at the bedside on hospital day #4. Nursing reports NAEO. Patient feels the same as yesterday. No current complaints. Patient states he is producing clear, yellow urine. He had a bowel movement yesterday.
Objective Data
-
Labs:
Laboratory Results
02/06/25 02/06/25
03:55 11:00
WBC 6.6
Hgb 6.9 L*
Hct 20.9 L*
Plt Count 214
PT 19.7 H
INR 1.61
APTT 52.3 H Cancelled
Sodium 137
Potassium 4.5
Chloride 108 H
Carbon Dioxide 24
BUN 33 H
Creatinine 2.0 H
Glucose 85
Calcium 8.0 L
Total Bilirubin 0.4
AST 15 L
ALT < 10
Alkaline Phosphatase 83
Vital Signs:
Vital Signs
Temp Pulse Resp BP Pulse Ox
98.5 F 76 18 134/87 97
02/06/25 09:59 02/06/25 09:59 02/06/25 09:59 02/06/25 09:59 02/06/25 08:36
I&O
02/05/25 02/06/25 02/07/25
06:59 06:59 06:59
Intake Total 480 / 480 0 / 0
Output Total 1425 / 1425 1600 / 1600
Balance -945 / -945 -1600 / -1600 0 / 0
Review of Systems
-
History Source: Patient
Constitutional: Reports Fatigue; Denies Fever or Chills
EENT: Reports No Symptoms Reported
Respiratory: Denies Cough, Trouble Breathing or Wheezing
Cardiac: Denies Chest Pain, Diaphoresis, Palpitations or Syncope
Abdomen/GI: Denies Abdominal Pain, Nausea, Vomiting or Diarrhea
Genitourinary: Denies Dysuria, Difficulty Voiding or Bleeding
Musculoskeletal: Reports Edema
Skin: Reports No Symptoms
Neuro: Denies Dizzy, Headache, Weakness, Numbness or Lightheadedness
Physical Exam
-
General: No Apparent Distress, Comfortable and Conversant; Negative Pain, Fever or Chills
HEENT: Normocephalic and Atraumatic
Respiratory: Clear to Auscultation and Non Labored Respirations; Negative Wheezes or Crackles
Cardiac: Regular Rhythm, S1/S2, Murmur (Systolic click loudest at LUSB) and Other (Pericardial drainage tube incision site clean, dry, intact; fluid collection in drain grossly unchanged from yesterday); Negative Rub, Gallop, Tachycardic or
Bradycardic
GI: Soft, Nontender and Normal Bowel Sounds
Genito-urinary: No Costovertebral Tender
Musculoskeletal: No Cyanosis, Edema, Right Lower Extrem (Trace) and Edema, Left Lower Extrem (Trace)
Skin: Warm and Dry
Neuro: Awake, AO x 3, No Motor Deficits and No Sensory Deficits
Psych: Calm
--- NOTE | 2025-02-06 10:17 | W.PN.ID1 ---
Date of Service
Date of Service: February 06, 2025
Today's Communication
Continue current antibiotics
Assessment / Plan
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
- Enterobacter cloacae also isolated from valve tissue (from enrichment broth only)
Suspected septic emboli to the brain
Subarachnoid hemorrhage
Leukocytosis; resolved
Renal insufficiency
Elevated ESR, CRP
- 01/21/25 : ESR 86, CRP <5
Pleural effusion
HTN
DM type II
Nephrolithiasis
Recommendations:
Patient status post valve replacement with mechanical AVR (12/27/2024)
Aortic valve cx: Enterobacter cloacae (on enrichment broth only) - possibly contaminant.
- To error on side of caution, treating both S. mutans and E. cloacae isolates.
-> Continue Ertapenem 1g IV q 24h x 6 weeks (through 02/14/25)
-> Following weekly CBC with diff, CMP, ESR / CRP.
Discussed with hospitalist, and patient may decline further rehab, and pursue home IV antibiotics.
Patient appears quite deconditioned, thus confirmation that somebody will be assisting him with his home IV antibiotics will be necessary.
Will place home infusion sheet on paper chart.
Chief Complaint
-: Other (Endocarditis)
Subjective / Review of Systems
Review of Systems: No Fever and No Chills
Vital Signs / Physical Exam
Vital Signs
Vital Signs
Temp Pulse Resp BP Pulse Ox
98.5 F 76 18 134/87 97
02/06/25 09:59 02/06/25 09:59 02/06/25 09:59 02/06/25 09:59 02/06/25 08:36
Physical Exam
Constitutional: No Acute Distress, Comfortable and Non-toxic
Eyes: Sclera Anicteric
Cardiovascular: S1/S2 and Other (Click); Negative S3/S4
Pulmonary: Clear and Non Labored; Negative Wheezes or Rales
Gastrointestinal: Soft, Non Tender and Non Distended
Extremities: Edema (3+ B/L LE's); Negative Cyanosis, Erythema or Venous Insufficiency
Skin: Negative Rash or Jaundice
Psychological: Calm
Lines: PICC
Objective Data
Lab Data
Lab Results
02/06/25 03:55
02/06/25 03:55
PT 19.7 Sec (11.4-14.6) H 02/06/25 03:55
INR 1.61 02/06/25 03:55
APTT Cancelled 02/06/25 11:00
Estimated Creat Clear 43 ml/min 02/06/25 03:55
Total Bilirubin 0.4 mg/dl (0.2-1.3) 02/06/25 03:55
AST 15 U/L (17-59) L 02/06/25 03:55
ALT < 10 U/L (0-50) 02/06/25 03:55
Alkaline Phosphatase 83 U/L (38-126) 02/06/25 03:55
Most recent labs reviewed.
Micro Results:
02/04/25 15:49 Body Fluid Culture - Preliminary
Pericardial Fluid No Growth After 18-24 Hours
Gram Stain - Preliminary
02/04/25 15:49 Fungal Smear - Pending
Pericardial Fluid
02/04/25 15:49 Fungal Culture - Pending
Pericardial Fluid
02/04/25 15:49 Acid Fast Bacilli Smear - Pending
Pericardial Fluid Acid Fast Bacilli Culture - Pending
Imaging:
02/04/2025 ECHO (TTE): pericardial effusion reduced from large to trivial status post pericardiocentesis.
01/22/2025 Renal ultrasound with bladder: No sonographic evidence for hydronephrosis. Left intrarenal calculus noted. Mild diffuse urinary bladder wall thickening. Small pleural effusions bilaterally.
01/19/2025 CXR (portable): Interval left-sided thoracentesis without evidence of pneumothorax. Improved aeration of the left lower lung. Please see full dictation for additional detail.
01/17/2025 CT chest (PE study): No PE seen. Moderate bilateral pleural effusions. Near complete atelectasis of the left lower lobe. Small focal area of atelectasis involving the posterior lingula. Subtle band shaped focus of decreased density
involving the superior spleen suggesting a focal area of splenic infarction. There is a small fluid collection posterior to the mid to inferior sternum which is likely postsurgical seroma. No evidence of a thickened enhancing wall to suggest
abscess. Please see full dictation for additional detail.
Care Review
Plan reviewed with: Physician (Hospitalist)
[2025-02-06 10:32] LABS: Folate 2.3 ng/ml (2.76-20)
--- NOTE | 2025-02-06 14:59 | W.PN.UPDATE ---
Update Note
Progress Note Update
Seen and examined by me independently in collaboration with the medical or surgical instrument maker.
Lab data reviewed.
Addendum as below :
Patient without any symptom of chest pain or shortness of breath. Pericardial drain in place. Await repeat echocardiogram and pending discontinue drain per cardiology.
Afebrile and hemodynamically stable.
Ongoing IV antibiotics for infective endocarditis
Patient with chronic anemia with with hemoglobin 6.9 today. No obvious external bleeding. Check Hemoccult testing. Transfuse 1 unit of PRBC. He needed. Transfusion support for anemia.
Patient has microscopic hematuria noted in the past as well. Unclear if this is related to renal insult from infective endocarditis. Continue with IV antibiotics and repeat urine analysis after finishing the course and if continued microscopic
hematuria follow-up with urology.
PT eval after discontinuation of pericardial drain. Patient wishes to go home from this hospitalization.
--- NOTE | 2025-02-06 16:33 | CM ---
Reviewed chart. Telephone call to [facility] who states they can accpe the case to do Home IV. They can send their nurse on Sunday02/10/25. Telephone call to [facility] Liaison to update her on [facility] start date. Waiting to
hear back from [facility] when the IV ABX will be shipped. Updated Mr and Mrs. Kwan regarding above. Will check with [facility] and [facility] on Sunday to confirm. Will need to see his current functional level to see if he will need
any DME in the home. Medical work-up in progress. The discharge plan is to return home with his spouse and [facility] for IV ABX and [facility] when medically stable.
[2025-02-06] MEDS: COUMADIN 1 MG PO (17:10)
[2025-02-06] MEDS: COUMADIN 0.5 MG PO (17:10)
--- NOTE | 2025-02-06 19:19 | PTCARENOTE ---
Heparin infusion off, INR at goal level. Pt transfused one unit of PRBC's using a warmer without problem for a Hg of 6.9. No drainage from pericardium, drain removed @18:30 by , dressing dry and intact. Stool passed heme test NEGATIVE.
Telemetry shows sinus rhythm with first degree AV block and LBBB. Plan to keep pt over the weekend and DC home early next week for home antibiotics.
[2025-02-06] MEDS: AMBIEN 10 MG PO (21:56)
[2025-02-06] MEDS: INVANZ 60 MG IV (22:39)
[2025-02-07] VITALS (12 sets, daily range): BP systolic 130–165; BP diastolic 83–107; PULSE 74; O2SAT 97; BMI 21.6
--- NOTE | 2025-02-07 01:52 | PTCARENOTE ---
Received pt @ change of shift. AAOx3, VSS-- NSR w/ LBBB and 1st degree block on monitor. Pericardial drain removed-- site dry and intact with some old drainage present. No swelling or discomfort. Left brachial site open to air and ecchymotic. No
swelling of hematoma present @ this time. Pt verbalizes being motivated to walk halls. RN discussed pt is no longer a fall risk as he no longer qualifies because his strength has gotten better and he is very stable on his feet. Pt nervous to walk
without standby assist. Discussed plan of care for evening. Pt verbalizes understanding. Call quesada within reach.
[2025-02-07 02:57] LABS: Hematocrit 23.5 % (39.0-52.0); Hemoglobin 8.1 g/dL (13.0-18.0); Mean Corp Hgb Conc. 34.5 g/dL (33.0-37.0); Mean Corpuscular Volume 84.2 fL (80.0-94.0); Platelet Count 209 10^3/uL (130-400); Red Cell Dist. Width 14.0 % (11.5-14.5)
[2025-02-07 03:05] LABS: INR 1.98; PT 22.7 Sec (11.4-14.6)
[2025-02-07 03:09] LABS: Blood Urea Nitrogen 29 mg/dl (9-20); Calcium 8.2 mg/dl (8.4-10.2); Carbon Dioxide 23 mmol/L (22-30); Chloride 106 mmol/L (98-107); Estimated Creatinine Clearance 45 ml/min; Glucose 90 mg/dl (70-99); Potassium 4.2 mmol/L (3.5-5.1); Sodium 136 mmol/L (135-145); eGFR 42.44
--- NOTE | 2025-02-07 08:57 | W.PN.CD ---
Today's Communication / Plan
-
- Ambulate
- Continue IV antibiotics
- Plan for discahrge once home IV is available
- Warfarin with INR goal 1.5-2.0
Impression / Plan
-
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 Denney on 12/27/24,
complicated by subarachnoid hemorrhage, then readmitted with acute HFpEF presents from [place] with a pericardial effusion on routine echo.
Outpatient learning manager: Dr. Mcgowan ([facility])
#Pericardial effusion
-New diagnosis.
-Mild to moderate on TTE without hemodynamic compromise.
-Pericardiocentesis removed 400 mL of bloody fluid without significant changes in filling pressures.
-s/p tap and the pericardial drain is removed.
-The bandage is dry.
#Infectious endocarditis
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
-S/P mechanical SAVR (initially #25 On-X but canted on implant, s/p explant & redo AVR with #23mm On-X), LVOT veg debridement, septal myomectomy/vegectomy, MV chordae vegetation resection and debridement with Dr. Denney on 12/27/2024.
-Postoperative course was complicated by bleeding and reexploration.
-Dr. Carrillo had spoken with Dr. Denney regarding anticoagulation. He is agreeable to decreasing INR goal to 1.5-2.0 (on label for On-X valve). on warfarin (1.5 mg QPM).
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
-ABX management per primary service/ID.
-RHC shows no significant L --> R shunt.
-Home antibiotics to start at home on Sunday/SUNDAY
#HFpEF
-Chronic, stable.
-His most recent weight is down significantly, however he has been weighed on a bed scale at [place].
-RHC today to clarify shunt and filing pressures.
-GDMT as tolerated
-Diuretic: Ethacrynic acid 50 mg daily.
-Beta-ck: Carvedilol to 25 mg BID.
-JUAN/ARB/ARNI: Lisinopril 2.5 mg daily - on hold due to slightly elevated renal markers.
-MRA: Spironolactone 25 mg.
-SGLT2i: Cost prohibitive.
-Trend Daily weight, I's/O, and BMP during admission.
#CKD
-BUN/Cr slightly up from baseline, trend.
-Lisinopril on hold.
-RHC showed moderately elevated filling pressures (PCWP = 20 mmHg).
-Rise in Cr is not due to dehydration/decreased intravascular volume.
#Hypertension
-Chronic, remains uncontrolled.
-Continue hydralazine 25 mg TID.
-Continue carvedilol to 25 mg BID.
-Continue spironolactone 25 mg daily.
-ACEI remains on hold due to renal function.
#Anemia
-Acute on chronic (AoCD).
-Hbg 6.9.
-B12 = 456 (normal), Fe = 26 (low), Fe %Sat = 11% (low), TIBC = 236 (low), Ferritin = 639 (high), reticulocyte = 1.2% (inappropriately normal).
-Follow up hemoccult, folate, thiamine.
-Transfuse 1 unit PRBCs (this will effectively replace any true Fe deficiency, though ferritin suggests that his Fe levels are actually normal).
-Add MVI.
#SAH, due to hemorrhagic conversion, in the setting of septic emboli
#LBBB/IVCD, EKG pending
#History of opioid abuse, history of Suboxone, stable
Subjective/Interval History:
Heparin restarted as a bridge. Warfarin restarted last evening.
Drain output is nil.
Hbg down to 6.9.
Thiamine/haptoglobin/hemoccult still pending.
DATA:
TTE, 02/03/2025:
CONCLUSIONS
Normal biventricular size and systolic function without regional wall motion
abnormality. LVEF 55 to 60%.
S/p mitral valve repair. Mild to moderate mitral regurgitation.
S/p mechanical aortic valve replacement. Peak/mean gradient 16/9 mmHg. Mild
paravalvular AI.
There appears to be a fistulous connection between the aortic root and the
proximal pulmonary artery, just after the pulmonic valve (view 29/30).
Thickening of the pulmonic valve leaflets. No obvious vegetation.
Mild to moderate pulmonic regurgitation.
Moderate to large pericardial effusion without evidence of hemodynamic
compromise.
Pleural effusion present.
Compared to prior echocardiogram on 01/17/2025, there is now pulmonic valve
thickening. Pericardial effusion has increased from small to moderate to
large. There is a fistulous connection visualized between the aortic root and
proximal pulmonary artery which was not seen previously.
Coronary CTA, 02/04/2025:
IMPRESSION:
1. LARGE MILDLY COMPLEX PERICARDIAL EFFUSION.
2. Recent surgical aortic valve replacement.
3. Mild calcific atherosclerotic plaque in the left coronary artery.
4. Small bilateral pleural effusions.
5. Large airspace consolidation in the lingula (either atelectasis or pneumonia).
6. Mild mediastinal and bilateral hilar lymphadenopathy.
7. Acute splenic infarct which appears unchanged.
RHC/Pericardiocentesis, 02/04/2025:
CONCLUSION:
1. Medium to large size, bloody pericardial effusion status post successful percutaneous drainage for 400 mL of bloody fluid with significant reduction in intrapericardial pressure but without significant change in filling pressures.
2. Moderately elevated filling pressures (PCWP = 19-20 mmHg at 69.4 kg), unchanged after pericardiocentesis.
3. Mild, postcapillary pulmonary hypertension (mean PA = 32 mmHg, PCWP = 20 mmHg, cardiac output = 5.97 L/min, PVR = 2.01 Foreman units), WHO group 2.
4. Normal cardiac index (3.20 L/min/m�).
5. No evidence of significant intracardiac [id number] shunt.
Physical Exam
Vital Signs/Labs
Vital Signs
Temp Pulse Resp BP Pulse Ox
98.3 F 80 18 147/96 97
02/07/25 07:45 02/07/25 07:45 02/07/25 07:45 02/07/25 02:42 02/07/25 07:45
02/06/25 02/07/25 02/08/25
06:59 06:59 06:59
Actual Weight 69.2 kg 68.4 kg
02/07/25 02:46
02/07/25 02:46
PT 22.7 Sec (11.4-14.6) H 02/07/25 02:46
INR 1.98 02/07/25 02:46
APTT Cancelled 02/06/25 11:00
Magnesium 1.6 mg/dl (1.6-2.3) 02/06/25 03:55
Physical Exam
Constitutional: No acute distress and Comfortable
EENT: Anicteric and Moist mucous membranes
Cardiovascular: Rhythm & rate is regular, Pedal edema is absent and Systolic murmur absent
Respiratory: Respiratory effort normal, Lungs clear to auscul. and Wheeze Absent
GI: Soft, Distention absent and Normal bowel sounds
Neuro/Psych: Alert, Oriented and AO x 3
Data Reviewed
-
Date of Service: February 07, 2025
Medical Decision Making: Reviewed Test Results, Test Interpretation and Review of Case with other Provider
EKG: Tracing Personally Visualized and interpreted
Echo: Report Reviewed by me
Labs: Labs Reviewed by me
Old Records: Reviewed
--- NOTE | 2025-02-07 09:21 | W.PN.HOSP.TC ---
Addendum entered and electronically signed by Donald Collado MD 02/07/25 15:19:
Seen and examined by me independently in collaboration with the biomedical manager.
Lab data and imaging data reviewed.
Addendum as below :
Echo from yesterday showed no reaccumulation of pericardial effusion. Pericardial catheter discontinued now. Patient denies any chest pain or shortness of breath. Afebrile. Hemodynamically stable.
Seen by PT and cleared for home health.
Await set up of home IV antibiotics for discharge. Likely home on Sunday.
Original Note:
Today's Communication/Plan
-
Continue antibiotics for infective endocarditis
Continue to follow infectious evaluation of pericardial fluid
Monitor hemoglobin and kidney function, intervening as necessary
Plan for discharge to home with VN, pending PT/OT eval and availability of VN for IV antibiotic administration
Assessment / Plan
Assessment / Plan
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
anemia of chronic disease, type 2 diabetes, depression, and anxiety who presented to the [facility] emergency department from [facility] due to abnormal findings on a routine echocardiogram. Patient developed bacterial endocarditis from a
dental infection a couple months ago, which necessitated emergent mechanical aortic valve replacement, septal myomectomy, and mitral valve chordae debridement on 12/27/2024, which was complicated by septic cerebral emboli and subsequent hemorrhagic
conversion (SAH). Patient was started on warfarin for anticoagulation s/p AVR, and he was discharged from [facility] on 01/14/2025. Patient was subsequently readmitted on 01/18/2025 for decompensated HFpEF. Patient was eventually discharged to [facility]
on 01/27/2025. [facility], which revealed a moderate to large pericardial effusion with hemodynamic stability, pulmonary valve thickening, and a fistulous connection between the aortic root and the
proximal pulmonary artery. Patient was admitted for further evaluation.
#Pericardial effusion
Echocardiogram (02/03): Per cardiology, moderate to large pericardial effusion without evidence of hemodynamic compromise.
Pericardiocentesis (02/04): 400 mL of bloody fluid extracted, drain left in place.
Infectious evaluation of pericardial fluid:
- Bacteria culture: NGTD
- Fungal and acid-fast bacillus cultures, smears pending
Echocardiogram (02/06): Normal pericardium without effusion. LVEF 55-60%.
Pericardial drain pulled, as no fluid was draining s/p pericardiocentesis
Continue to monitor clinical status
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
Echocardiogram (02/03): Per cardiology, fistulous connection between the aortic root and the proximal pulmonary artery, just after the pulmonic valve. Thickening of the pulmonic valve leaflets (new since echo 01/17/2025).
RHC (02/04): Per interventional cardiology, moderately elevated filling pressures (PCWP 20 mmHg). No significant change after pericardiocentesis. No significant [id number] shunt.
Coronary angiography CT (02/04): Large pericardial effusion. Large dense airspace consolidation in the lingula adjacent to the large pericardial effusion. Small bilateral pleural effusions.
#Infective endocarditis s/p mechanical aortic valve replacement
Per ID, continue ertapenem through 02/14; RUE PICC line in place
Per cardiology, patient restarted on anticoagulation with warfarin
Per CM, patient will have VN assistance for IV antibiotic administration starting on Sunday
#HFpEF
Echo (02/03, 02/06): LVEF 55 to 60%.
Patient denies shortness of breath; 1+ pitting edema noted in bilateral lower extremities
Continue GDMT as tolerated, with lisinopril on hold for elevated creatinine
Trend weights, I's and O's
#Hypertension
Chronic, continue to monitor
Continue amlodipine, carvedilol, hydralazine
Per cardiology, up titrate hydralazine as needed
#Acute on chronic anemia
Hemoglobin 8.1 today s/p transfusion of 1 unit PRBCs after hemoglobin 6.9 yesterday morning
Patient's baseline over the past month appears to be approximately hemoglobin of 7s-8s
Iron studies consistent with anemia of chronic disease (elevated ferritin, low TIBC, low iron)
Hemolytic workup: Reticulocyte count WNL; LDH WNL; haptoglobin decreased (mixed picture for hemolysis)
UA shows 4+ blood, >100 RBCs.
-This is similar to prior UAs in the past 6 weeks. Patient denies bloody urine last 3 days. Patient believes hematuria is related to history of kidney stones s/p stents.
No overt signs of active bleeding. Hemoccult negative.
Monitor H&H, clinical status
Transfuse for hemoglobin <7
#CKD IIIb
Cr 1.9, BUN 29 today, stable relative to yesterday
Baseline over the past month appears to be approximately 1.4-1.6
UA shows 4+ blood, >100 RBCs. This is similar to prior UAs in the past 6 weeks, which was previously followed by nephrology during recent hospital stay.
Holding lisinopril while monitoring kidney function
Avoid nephrotoxic medications
Etiology possible GN 2/2 infective endocarditis vs sequelae of kidney stones s/p stenting. Plan to repeat UA following completion of antibiotic regimen. Nephrology follow-up based on repeat UA.
Trend BMP
#Sacral decubitus ulcer
Stage 1: Erythematous, though unbroken skin
Location: Central, approximately 2-3 inches above coccyx
Etiology likely extended hospital stay and related immobility/time spent in bed over the past several weeks
#Splenic infarct
#Subarachnoid hemorrhage
#Opioid use disorder
#Depression
#Anxiety
DVT PPx: SCDs
CODE STATUS: Full
Disposition: PT: Home health. OT: Outpatient therapy. Per CM, plan for discharge to home with home care for IV antibiotic administration. Home antibiotics not delivered until Sunday or later. VN not available until Sunday.
Anticipated Discharge: > 48 hours
Subjective/Interval History
-
Date of Service: February 07, 2025
Patient seen at bedside on hospital day #5. Nursing reports NAEO. Patient's drain was pulled yesterday. Patient states, 'I feel good.' No current complaints. He has been walking around the unit without issue. Producing clear, yellow urine.
Patient states he believes this abnormal UA, which showed blood, is related to his prior history of kidney stones with stent placements. No active urinary symptoms.
Objective Data
-
Labs:
Laboratory Results
02/07/25
02:46
WBC 6.6
Hgb 8.1 L
Hct 23.5 L
Plt Count 209
PT 22.7 H
INR 1.98
Sodium 136
Potassium 4.2
Chloride 106
Carbon Dioxide 23
BUN 29 H
Creatinine 1.9 H
Glucose 90
Calcium 8.2 L
Vital Signs:
Vital Signs
Temp Pulse Resp BP Pulse Ox
98.3 F 80 18 147/96 97
02/07/25 07:45 02/07/25 07:45 02/07/25 07:45 02/07/25 02:42 02/07/25 07:45
I&O
02/06/25 02/07/25 02/08/25
06:59 06:59 06:59
Intake Total 900 / 900
Output Total 1600 / 1600 1025 / 1025
Balance -1600 / -1600 -125 / -125
Review of Systems
-
History Source: Patient
Constitutional: Denies Fever, Fatigue or Chills
EENT: Reports No Symptoms Reported
Respiratory: Denies Cough, Trouble Breathing or Wheezing
Cardiac: Denies Chest Pain, Diaphoresis, Palpitations or Syncope
Abdomen/GI: Denies Abdominal Pain, Nausea, Vomiting, Diarrhea or Bloody Stools
Genitourinary: Reports Frequency (Attributes to diuretic); Denies Dysuria, Flank Pain or Difficulty Voiding
Musculoskeletal: Reports Edema; Denies Joint Pain or Muscle Pain
Skin: Reports No Symptoms
Neuro: Denies Headache, Weakness, Numbness or Lightheadedness
Physical Exam
-
General: No Apparent Distress, Comfortable and Conversant
HEENT: Normocephalic and Atraumatic
Respiratory: Clear to Auscultation and Non Labored Respirations; Negative Wheezes or Crackles
Cardiac: Regular Rhythm, S1/S2, Murmur (Systolic murmur best heard at LUSB, unchanged from prior days) and Other (Pericardial drain no longer in place); Negative Tachycardic or Bradycardic
GI: Soft, Nontender, Nondistended and Normal Bowel Sounds
Genito-urinary: No Costovertebral Tender
Musculoskeletal: No Cyanosis, Edema, Right Lower Extrem (1+ pitting edema) and Edema, Left Lower Extrem (1+ pitting edema)
Skin: Warm, Dry and IV Access / Catheter Site (RUE PICC line in place)
Neuro: Awake, AO x 3, No Motor Deficits and No Sensory Deficits
Psych: Calm
[2025-02-07] MEDS: ALDACTONE 25 MG PO (10:00)
[2025-02-07] MEDS: MUCINEX 600 MG PO (10:00)
[2025-02-07] MEDS: PROTONIX 40 MG PO (10:00)
[2025-02-07] MEDS: NEURONTIN 300 MG PO ×2 (10:00→20:25)
[2025-02-07] MEDS: THERAGRAN 1 TABLET PO (10:00)
[2025-02-07] MEDS: VISBIOME 2 CAP PO (10:01)
[2025-02-07] MEDS: NORVASC 10 MG PO (10:01)
[2025-02-07] MEDS: APRESOLINE 25 MG PO ×3 (10:01→21:43)
[2025-02-07] MEDS: PROZAC 40 MG PO (10:01)
[2025-02-07] MEDS: FEOSOL 325 MG PO (10:01)
[2025-02-07] MEDS: EDECRIN 50 MG PO ×2 (10:01→20:25)
[2025-02-07] MEDS: COREG 25 MG PO ×2 (10:02→20:24)
[2025-02-07] MEDS: IMODIUM 2 MG PO (10:09)
[2025-02-07] MEDS: ATIVAN 1 MG PO ×2 (12:15→21:43)
[2025-02-07] MEDS: COUMADIN 0.5 MG PO (17:31)
[2025-02-07] MEDS: COUMADIN 1 MG PO (17:32)
--- NOTE | 2025-02-07 18:28 | PTCARENOTE ---
Pt denies any discomfort. Pt happy to walk in halls multiple times and work with PT. Pt more independent with ADL's and looking forward to going home. Pericardial drain site with intact dressing. Telemetry shows sinus rhythm with first degree AV
block, LBBB.
[2025-02-07] MEDS: INVANZ 60 MG IV (20:25)
[2025-02-07] MEDS: AMBIEN 10 MG PO (21:43)
--- NOTE | 2025-02-07 23:10 | PTCARENOTE ---
Received pt @ change of shift. AAOx3, VSS-- NSR w/ 1st degree AV block, LBBB on monitor. Left brachial site ROASTMASTER. Pericardial drain site dry and intact-- some old drainage present. Discussed plan of care. Pt verbalizes understanding. Call quesada within
reach.
[2025-02-08 04:40] VITALS: BP 160/100
[2025-02-08 04:41] VITALS: BMI 21.7
[2025-02-08 04:47] LABS: Hematocrit 22.7 % (39.0-52.0); Hemoglobin 7.9 g/dL (13.0-18.0); Mean Corp Hgb Conc. 34.8 g/dL (33.0-37.0); Mean Corpuscular Volume 85.0 fL (80.0-94.0); Platelet Count 201 10^3/uL (130-400); Red Cell Dist. Width 13.8 % (11.5-14.5)
[2025-02-08 05:10] LABS: Blood Urea Nitrogen 30 mg/dl (9-20); Calcium 8.4 mg/dl (8.4-10.2); Carbon Dioxide 25 mmol/L (22-30); Chloride 107 mmol/L (98-107); Estimated Creatinine Clearance 45 ml/min; Glucose 87 mg/dl (70-99); Potassium 4.1 mmol/L (3.5-5.1); Sodium 138 mmol/L (135-145); eGFR 42.44
--- NOTE | 2025-02-08 07:19 | W.PN.HOSP.TC ---
Addendum entered and electronically signed by Donald Collado MD 02/08/25 11:09:
Seen and examined by me independently in collaboration with the medical voucher clerk.
Lab data reviewed.
Addendum as below :
No overnight events. Voicing no specific complaints.
No fever or chills. No shortness of breath or chest pain. Tolerating diet.
Afebrile. Blood pressure not under goal. Chest clear.
PT cleared for home health.
Case management setting up home antibiotics tomorrow.
Continue the current treatments. Increase hydralazine for blood pressure control.
DC in a.m. once home antibiotics are set up.
Original Note:
Today's Communication/Plan
-
Continue ertapenem for infective endocarditis
Continue to follow infectious evaluation pericardial fluid
Monitor hemoglobin and kidney function, intervening as necessary
Plan for discharge to home tomorrow, pending antibiotic delivery to home and VN availability
Assessment / Plan
Assessment / Plan
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
anemia of chronic disease, type 2 diabetes, depression, and anxiety who presented to the [facility] emergency department from [facility] due to abnormal findings on a routine echocardiogram. Patient developed bacterial endocarditis from a
dental infection a couple months ago, which necessitated emergent mechanical aortic valve replacement, septal myomectomy, and mitral valve chordae debridement on 12/27/2024, which was complicated by septic cerebral emboli and subsequent hemorrhagic
conversion (SAH). Patient was started on warfarin for anticoagulation s/p AVR, and he was discharged from [facility] on 01/14/2025. Patient was subsequently readmitted on 01/18/2025 for decompensated HFpEF. Patient was eventually discharged to [facility]
on 01/27/2025. Patient underwent a routine TTE at [facility] on 02/03/2025, which revealed a moderate to large pericardial effusion with hemodynamic stability, pulmonary valve thickening, and a fistulous connection between the aortic root and the
proximal pulmonary artery. Patient was admitted for further evaluation.
#Pericardial effusion
Echocardiogram (02/03): Per cardiology, moderate to large pericardial effusion without evidence of hemodynamic compromise.
Pericardiocentesis (02/04): 400 mL of bloody fluid extracted, drain left in place.
Infectious evaluation of pericardial fluid:
- Bacteria culture: NGTD
- Fungal culture and smear pending
- Acid-fast bacillus smear negative, culture pending
Echocardiogram (02/06): Normal pericardium without effusion. LVEF 55-60%.
Pericardial drain pulled, as no fluid was draining s/p pericardiocentesis
Continue to monitor clinical status
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
Echocardiogram (02/03): Per cardiology, fistulous connection between the aortic root and the proximal pulmonary artery, just after the pulmonic valve. Thickening of the pulmonic valve leaflets (new since echo 01/17/2025).
RHC (02/04): Per interventional cardiology, moderately elevated filling pressures (PCWP 20 mmHg). No significant change after pericardiocentesis. No significant lruc-vb-kpscw shunt.
Coronary angiography CT (02/04): Large pericardial effusion. Large dense airspace consolidation in the lingula adjacent to the large pericardial effusion. Small bilateral pleural effusions.
#Infective endocarditis s/p mechanical aortic valve replacement
Per ID, continue ertapenem through 02/14; RUE PICC line in place
Per cardiology, patient restarted on anticoagulation with warfarin
Per , we anticipate antibiotics delivered to home on Sunday and VN assistance for IV antibiotic administration starting on Sunday
#HFpEF
Echo (02/03, 02/06): LVEF 55 to 60%.
Patient denies shortness of breath; 1+ pitting edema noted in bilateral lower extremities
Continue GDMT as tolerated, with lisinopril on hold for elevated creatinine
Trend weights, I's and O's
#Hypertension
Chronic, continue to monitor
Continue amlodipine, carvedilol, hydralazine
Holding lisinopril for elevated creatinine
Per cardiology, up titrate hydralazine as needed
#Acute on chronic anemia
Hemoglobin 7.9 today s/p transfusion of 1 unit PRBCs (02/06)
Patient's baseline over the past month appears to be approximately hemoglobin of 7s-8s
Iron studies consistent with anemia of chronic disease (elevated ferritin, low TIBC, low iron)
Hemolytic workup: Reticulocyte count WNL; LDH WNL; haptoglobin decreased (mixed picture for hemolysis)
UA shows 4+ blood, >100 RBCs.
-This is similar to prior UAs in the past 6 weeks. Patient denies bloody urine last 3 days. Patient believes hematuria is related to history of kidney stones s/p stents.
No overt signs of active bleeding. Hemoccult negative.
Monitor H&H, clinical status
Transfuse for hemoglobin <7
#CKD IIIb
Cr 1.9, BUN 30 today, stable relative to yesterday
Baseline over the past month appears to be approximately 1.4-1.6
UA shows 4+ blood, >100 RBCs. This is similar to prior UAs in the past 6 weeks, which was previously followed by nephrology during recent hospital stay.
Holding lisinopril while monitoring kidney function
Avoid nephrotoxic medications
Etiology possible GN 2/2 infective endocarditis vs sequelae of kidney stones s/p stenting. Plan to repeat UA following completion of antibiotic regimen. Nephrology follow-up based on repeat UA.
Trend BMP
#Sacral decubitus ulcer
No sacral decubitus ulcer appreciated on exam today
Patient denies any pain or visualization of an ulcer himself
#Splenic infarct
#Subarachnoid hemorrhage
#Opioid use disorder
#Depression
#Anxiety
DVT PPx: SCDs
CODE STATUS: Full
Disposition: PT: Home health. OT: Outpatient therapy. Per CM, plan for discharge to home with home care for IV antibiotic administration. Home antibiotics not delivered until Sunday or later. VN not available until Sunday.
Anticipated Discharge: 24 - 48 hours
Subjective/Interval History
-
Date of Service: February 08, 2025
Patient seen at bedside on hospital day #6. Nursing reports DASIAO. Patient states he is 'feeling good, ready to go home.' Discussed with patient that discharge is pending antibiotic delivery to his home and VN availability on Sunday.
Objective Data
-
Labs:
Laboratory Results
02/08/25
04:09
WBC 6.2
Hgb 7.9 L
Hct 22.7 L
Plt Count 201
Sodium 138
Potassium 4.1
Chloride 107
Carbon Dioxide 25
BUN 30 H
Creatinine 1.9 H
Glucose 87
Calcium 8.4
Vital Signs:
Vital Signs
Temp Pulse Resp BP Pulse Ox
98.0 F 79 18 134/83 98
02/08/25 04:36 02/08/25 04:35 02/08/25 04:36 02/07/25 22:34 02/08/25 04:36
I&O
02/07/25 02/08/25 02/09/25
06:59 06:59 06:59
Intake Total 900 / 900 240 / 240
Output Total 1025 / 1025
Balance -125 / -125 240 / 240
Review of Systems
-
History Source: Patient
Constitutional: Denies Fever, Fatigue or Chills
EENT: Reports No Symptoms Reported
Respiratory: Denies Cough, Trouble Breathing or Wheezing
Cardiac: Denies Chest Pain, Palpitations or Syncope
Abdomen/GI: Denies Abdominal Pain, Nausea, Vomiting, Diarrhea (Diarrhea related to antibiotics well-controlled with Imodium), Constipated, Bloody Stools or Black Stools
Genitourinary: Denies Dysuria, Flank Pain, Difficulty Voiding or Bleeding (Previous clear, 'straw-colored' urine)
Musculoskeletal: Reports Edema
Skin: Reports Sores (Patient denies any sacral pain or visualization of ulcer)
Neuro: Denies Headache, Weakness, Numbness or Lightheadedness
Physical Exam
-
General: No Apparent Distress, Comfortable and Conversant
HEENT: Normocephalic and Atraumatic
Respiratory: Clear to Auscultation and Non Labored Respirations; Negative Wheezes or Crackles
Cardiac: Regular Rhythm, S1/S2, Murmur (Systolic murmur heard loudest at LUSB, unchanged from prior days s/p AVR last month) and Other (Pericardial drain pulled in recent days; incision site is clean, dry, intact, non-TTP, no ecchymoses); Negative
Rub, Gallop, Tachycardic or Bradycardic
GI: Soft, Nontender, Nondistended and Normal Bowel Sounds
Genito-urinary: No Costovertebral Tender
Musculoskeletal: No Cyanosis
Skin: Warm, Dry, Decubitus Ulcers (No sacral pressure ulcer appreciated on exam today) and IV Access / Catheter Site (RUE PICC line in place, clean, dry, intact)
Neuro: Awake, AO x 3, No Motor Deficits and No Sensory Deficits
Psych: Calm
[2025-02-08 08:44] VITALS: BP 190/102
[2025-02-08] MEDS: EDECRIN 50 MG PO ×2 (09:05→20:34)
[2025-02-08] MEDS: NEURONTIN 300 MG PO ×2 (09:05→20:34)
[2025-02-08] MEDS: PROTONIX 40 MG PO (09:06)
[2025-02-08] MEDS: VISBIOME 2 CAP PO (09:06)
[2025-02-08] MEDS: COREG 25 MG PO ×2 (09:06→20:34)
[2025-02-08] MEDS: PROZAC 40 MG PO (09:06)
[2025-02-08] MEDS: ATIVAN 1 MG PO ×2 (09:07→20:35)
[2025-02-08] MEDS: NORVASC 10 MG PO (09:07)
[2025-02-08] MEDS: FEOSOL 325 MG PO (09:07)
[2025-02-08] MEDS: ALDACTONE 25 MG PO (09:07)
[2025-02-08] MEDS: IMODIUM 2 MG PO (09:07)
[2025-02-08] MEDS: MUCINEX PO (09:08)
[2025-02-08] MEDS: THERAGRAN 1 TABLET PO (09:08)
[2025-02-08] MEDS: APRESOLINE PO (09:09)
[2025-02-08] MEDS: APRESOLINE 50 MG PO ×3 (09:44→22:43)
--- NOTE | 2025-02-08 12:03 | W.PN.CD ---
Today's Communication / Plan
-
- Continue antibiotics.
Impression / Plan
-
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 Denney on 12/27/24,
complicated by subarachnoid hemorrhage, then readmitted with acute HFpEF presents from [facility] with a pericardial effusion on routine echo.
Outpatient rfid engineer: Dr. Mcgowan ([facility])
#Pericardial effusion
-New diagnosis.
-Mild to moderate on TTE without hemodynamic compromise.
-Pericardiocentesis removed 400 mL of bloody fluid without significant changes in filling pressures.
-s/p tap and the pericardial drain is removed.
-The bandage is dry.
#Infectious endocarditis
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
-S/P mechanical SAVR (initially #25 On-X but canted on implant, s/p explant & redo AVR with #23mm On-X), LVOT veg debridement, septal myomectomy/vegectomy, MV chordae vegetation resection and debridement with Dr. Denney on 12/27/2024.
-Postoperative course was complicated by bleeding and reexploration.
-Dr. Carrillo had spoken with Dr. Denney regarding anticoagulation. He is agreeable to decreasing INR goal to 1.5-2.0 (on label for On-X valve). on warfarin (1.5 mg QPM).
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
-ABX management per primary service/ID.
-RHC shows no significant L --> R shunt.
-Home antibiotics to start at home on Sunday/SUNDAY
#HFpEF
-Chronic, stable.
-His most recent weight is down significantly, however he has been weighed on a bed scale at [facility].
-RHC today to clarify shunt and filing pressures.
-GDMT as tolerated
-Diuretic: Ethacrynic acid 50 mg daily.
-Beta-ck: Carvedilol to 25 mg BID.
-JUAN/ARB/ARNI: Lisinopril 2.5 mg daily - on hold due to slightly elevated renal markers.
-MRA: Spironolactone 25 mg.
-SGLT2i: Cost prohibitive.
-Trend Daily weight, I's/O, and BMP during admission.
#CKD
-BUN/Cr slightly up from baseline, trend.
-Lisinopril on hold.
-RHC showed moderately elevated filling pressures (PCWP = 20 mmHg).
-Rise in Cr is not due to dehydration/decreased intravascular volume.
#Hypertension
-Chronic, remains uncontrolled.
-Continue hydralazine 25 mg TID.
-Continue carvedilol to 25 mg BID.
-Continue spironolactone 25 mg daily.
-ACEI remains on hold due to renal function.
#Anemia
-Acute on chronic (AoCD).
-Hbg 6.9.
-B12 = 456 (normal), Fe = 26 (low), Fe %Sat = 11% (low), TIBC = 236 (low), Ferritin = 639 (high), reticulocyte = 1.2% (inappropriately normal).
-Follow up hemoccult, folate, thiamine.
-Transfuse 1 unit PRBCs (this will effectively replace any true Fe deficiency, though ferritin suggests that his Fe levels are actually normal).
-Add MVI.
#SAH, due to hemorrhagic conversion, in the setting of septic emboli
#LBBB/IVCD, EKG pending
#History of opioid abuse, history of Suboxone, stable
Subjective/Interval History:
Plan for discharge once antibiotics is available at home.
DATA:
TTE, 02/03/2025:
CONCLUSIONS
Normal biventricular size and systolic function without regional wall motion
abnormality. LVEF 55 to 60%.
S/p mitral valve repair. Mild to moderate mitral regurgitation.
S/p mechanical aortic valve replacement. Peak/mean gradient 16/9 mmHg. Mild
paravalvular AI.
There appears to be a fistulous connection between the aortic root and the
proximal pulmonary artery, just after the pulmonic valve (view 29/30).
Thickening of the pulmonic valve leaflets. No obvious vegetation.
Mild to moderate pulmonic regurgitation.
Moderate to large pericardial effusion without evidence of hemodynamic
compromise.
Pleural effusion present.
Compared to prior echocardiogram on 01/17/2025, there is now pulmonic valve
thickening. Pericardial effusion has increased from small to moderate to
large. There is a fistulous connection visualized between the aortic root and
proximal pulmonary artery which was not seen previously.
Coronary CTA, 02/04/2025:
IMPRESSION:
1. LARGE MILDLY COMPLEX PERICARDIAL EFFUSION.
2. Recent surgical aortic valve replacement.
3. Mild calcific atherosclerotic plaque in the left coronary artery.
4. Small bilateral pleural effusions.
5. Large airspace consolidation in the lingula (either atelectasis or pneumonia).
6. Mild mediastinal and bilateral hilar lymphadenopathy.
7. Acute splenic infarct which appears unchanged.
RHC/Pericardiocentesis, 02/04/2025:
CONCLUSION:
1. Medium to large size, bloody pericardial effusion status post successful percutaneous drainage for 400 mL of bloody fluid with significant reduction in intrapericardial pressure but without significant change in filling pressures.
2. Moderately elevated filling pressures (PCWP = 19-20 mmHg at 69.4 kg), unchanged after pericardiocentesis.
3. Mild, postcapillary pulmonary hypertension (mean PA = 32 mmHg, PCWP = 20 mmHg, cardiac output = 5.97 L/min, PVR = 2.01 Foreman units), WHO group 2.
4. Normal cardiac index (3.20 L/min/m�).
5. No evidence of significant intracardiac [id number]-[id number] shunt.
Physical Exam
Vital Signs/Labs
Vital Signs
Temp Pulse Resp BP Pulse Ox
97.6 F 75 18 190/102 96
02/08/25 08:46 02/08/25 08:44 02/08/25 08:46 02/08/25 09:44 02/08/25 08:46
02/07/25 02/08/25 02/09/25
06:59 06:59 06:59
Actual Weight 68.4 kg 68.7 kg
02/08/25 04:09
02/08/25 04:09
PT 22.7 Sec (11.4-14.6) H 02/07/25 02:46
INR 1.98 02/07/25 02:46
APTT Cancelled 02/06/25 11:00
Magnesium 1.6 mg/dl (1.6-2.3) 02/06/25 03:55
Physical Exam
Constitutional: No acute distress and Comfortable
EENT: Anicteric and Moist mucous membranes
Cardiovascular: Rhythm & rate is regular, Pedal edema is absent and JVD pressure is normal
Respiratory: Respiratory effort normal, Lungs clear to auscul. and Wheeze Absent
GI: Soft, Non tender and Normal bowel sounds
Neuro/Psych: Alert, Oriented and AO x 3
Other: Cath Site
Data Reviewed
-
Date of Service: February 08, 2025
Medical Decision Making: Reviewed Test Results, Test Interpretation and Review of Case with other Provider
EKG: Tracing Personally Visualized and interpreted
Echo: Report Reviewed by me
Labs: Labs Reviewed by me
Old Records: Reviewed
[2025-02-08 12:12] VITALS: BP 128/90
[2025-02-08] MEDS: INVANZ 60 MG IV (13:57)
[2025-02-08 15:50] LABS: Vitamin B1, Whole Blood 105 nmol/L (70-180)
[2025-02-08 15:55] VITALS: BP 140/85
[2025-02-08] MEDS: COUMADIN 1 MG PO (17:37)
--- NOTE | 2025-02-08 18:55 | PTCARENOTE ---
Pt walking in halls without problem. Pt denies any discomfort and is excited to go home on 02/09 after antibiotic is given at 14:00. Telemetry shows sinus rhythm with first degree AV block, LBBB.
[2025-02-08 20:22] VITALS: BP 133/91
[2025-02-08] MEDS: AMBIEN 10 MG PO (20:35)
[2025-02-08 22:42] VITALS: BP 132/88
--- NOTE | 2025-02-08 22:58 | PTCARENOTE ---
Received pt at change of shift resting in bed. SR w/ BBB, 1st degree on tele, HR in the 70's. pt denies any CP or SOB. VS captured on this shift from 1500 on. Left brachial site intact, but ecchymotic. No bleeding or hematoma noted at this time. PRN
Ambien and Ativan administered per pt request--see MAR. pt ambulating in room w/ rw. Educated pt to call RN with any questions/concerns. Call quesada within reach.
[2025-02-09 04:29] VITALS: BP 161/91
[2025-02-09 04:45] VITALS: BMI 21.5
[2025-02-09 05:01] LABS: Hematocrit 24.8 % (39.0-52.0); Hemoglobin 8.4 g/dL (13.0-18.0); Mean Corp Hgb Conc. 33.9 g/dL (33.0-37.0); Mean Corpuscular Volume 85.8 fL (80.0-94.0); Platelet Count 220 10^3/uL (130-400); Red Cell Dist. Width 13.8 % (11.5-14.5)
[2025-02-09 05:12] LABS: INR 1.78; PT 21.2 Sec (11.4-14.6)
[2025-02-09 05:28] LABS: Blood Urea Nitrogen 31 mg/dl (9-20); Calcium 8.5 mg/dl (8.4-10.2); Carbon Dioxide 24 mmol/L (22-30); Chloride 106 mmol/L (98-107); Estimated Creatinine Clearance 50 ml/min; Glucose 90 mg/dl (70-99); Potassium 4.4 mmol/L (3.5-5.1); Sodium 136 mmol/L (135-145); eGFR 48.51
[2025-02-09 07:37] VITALS: BP 154/94
--- NOTE | 2025-02-09 08:48 | W.PN.ID1 ---
Date of Service
Date of Service: February 09, 2025
Today's Communication
Continue current course of ertapenem.
Assessment / Plan
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
- Enterobacter cloacae also isolated from valve tissue (from enrichment broth only)
Suspected septic emboli to the brain
Subarachnoid hemorrhage
Leukocytosis; resolved
Renal insufficiency
Elevated ESR, CRP
- 01/21/25 : ESR 86, CRP <5
Pleural effusion
HTN
DM type II
Nephrolithiasis
Recommendations:
Patient status post valve replacement with mechanical AVR (12/27/2024)
Aortic valve cx: Enterobacter cloacae (on enrichment broth only) - possibly contaminant.
- To error on side of caution, treating both S. mutans and E. cloacae isolates.
-> Continue Ertapenem 1g IV q 24h x 6 weeks (through 02/14/25)
- Patient to complete therapy via home infusion.
- Home infusion sheet previously given to CM
-> Following weekly CBC with diff, CMP, ESR / CRP.
Patient counseled on necessity of antibiotics before any dental work.
����������������������������������������������������������
Chief Complaint
-: Other (Aortic valve endocarditis)
Subjective / Review of Systems
Patient seen and examined. Reports feeling well. Notes increase strength. For possible discharge today.
Review of Systems: No Fever and No Chills
Vital Signs / Physical Exam
Vital Signs
Vital Signs
Temp Pulse Resp BP Pulse Ox
98.7 F 82 20 161/91 94
02/09/25 07:37 02/09/25 04:29 02/09/25 07:37 02/09/25 04:29 02/09/25 07:37
Physical Exam
Constitutional: No Acute Distress, Comfortable and Non-toxic
Eyes: Sclera Anicteric
Cardiovascular: S1/S2 and Other (Click); Negative S3/S4
Pulmonary: Clear and Non Labored; Negative Wheezes or Rales
Gastrointestinal: Soft, Non Tender and Non Distended
Extremities: Edema (3+ B/L LE's); Negative Cyanosis, Erythema or Venous Insufficiency
Skin: Negative Rash or Jaundice
Psychological: Calm
Lines: PICC
Objective Data
Lab Data
Lab Results
02/09/25 04:40
02/09/25 04:40
PT 21.2 Sec (11.4-14.6) H 02/09/25 04:40
INR 1.78 02/09/25 04:40
APTT Cancelled 02/06/25 11:00
Estimated Creat Clear 50 ml/min 02/09/25 04:40
Total Bilirubin 0.4 mg/dl (0.2-1.3) 02/06/25 03:55
AST 15 U/L (17-59) L 02/06/25 03:55
ALT < 10 U/L (0-50) 02/06/25 03:55
Alkaline Phosphatase 83 U/L (38-126) 02/06/25 03:55
Most recent labs reviewed.
Micro Results:
02/04/25 15:49 Acid Fast Bacilli Smear - Preliminary
Pericardial Fluid Acid Fast Bacilli Culture - Preliminary
02/04/25 15:49 Body Fluid Culture - Final
Pericardial Fluid No Growth After 72 Hours
Gram Stain - Final
02/04/25 15:49 Fungal Smear - Pending
Pericardial Fluid
02/04/25 15:49 Fungal Culture - Pending
Pericardial Fluid
Imaging:
02/04/2025 ECHO (TTE): pericardial effusion reduced from large to trivial status post pericardiocentesis.
01/22/2025 Renal ultrasound with bladder: No sonographic evidence for hydronephrosis. Left intrarenal calculus noted. Mild diffuse urinary bladder wall thickening. Small pleural effusions bilaterally.
01/19/2025 CXR (portable): Interval left-sided thoracentesis without evidence of pneumothorax. Improved aeration of the left lower lung. Please see full dictation for additional detail.
01/17/2025 CT chest (PE study): No PE seen. Moderate bilateral pleural effusions. Near complete atelectasis of the left lower lobe. Small focal area of atelectasis involving the posterior lingula. Subtle band shaped focus of decreased density
involving the superior spleen suggesting a focal area of splenic infarction. There is a small fluid collection posterior to the mid to inferior sternum which is likely postsurgical seroma. No evidence of a thickened enhancing wall to suggest
abscess. Please see full dictation for additional detail.
--- NOTE | 2025-02-09 09:04 | W.PN.CD ---
Today's Communication / Plan
-
cont meds
d/c likely today
He will be following up [facility] [employer] and INR goal is 1.5-2.0
Impression / Plan
-
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 Denney on 12/27/24,
complicated by subarachnoid hemorrhage, then readmitted with acute HFpEF presents from [place] with a pericardial effusion on routine echo.
Outpatient information [employer]: Dr. Mcgowan ([facility])
#Pericardial effusion
-New diagnosis.
-Mild to moderate on TTE without hemodynamic compromise.
-Pericardiocentesis removed 400 mL of bloody fluid without significant changes in filling pressures.
-s/p tap and the pericardial drain is removed.
-The bandage is dry.
#Infectious endocarditis
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
-S/P mechanical SAVR (initially #25 On-X but canted on implant, s/p explant & redo AVR with #23mm On-X), LVOT veg debridement, septal myomectomy/vegectomy, MV chordae vegetation resection and debridement with Dr. Denney on 12/27/2024.
-Postoperative course was complicated by bleeding and reexploration.
-Dr. Carrillo had spoken with Dr. Denney regarding anticoagulation. He is agreeable to decreasing INR goal to 1.5-2.0 (on label for On-X valve). on warfarin (1.5 mg QPM).
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
-ABX management per primary service/ID.
-RHC shows no significant L --> R shunt.
-Home antibiotics to start at home on Sunday/SUNDAY
#HFpEF
-Chronic, stable.
-His most recent weight is down significantly, however he has been weighed on a bed scale at [place].
-RHC below
-GDMT as tolerated
-Diuretic: Ethacrynic acid 50 mg daily.
-Beta-ck: Carvedilol to 25 mg BID.
-JUAN/ARB/ARNI: Lisinopril 2.5 mg daily - on hold due to slightly elevated renal markers.
-MRA: Spironolactone 25 mg.
-SGLT2i: Cost prohibitive.
-Trend Daily weight, I's/O, and BMP during admission.
#CKD
-BUN/Cr slightly up from baseline, trend.
-Lisinopril on hold.
-RHC showed moderately elevated filling pressures (PCWP = 20 mmHg).
-Rise in Cr is not due to dehydration/decreased intravascular volume.
#Hypertension
-Chronic, remains uncontrolled.
-Continue hydralazine 25 mg TID.
-Continue carvedilol to 25 mg BID.
-Continue spironolactone 25 mg daily.
-ACEI remains on hold due to renal function.
#Anemia
-Acute on chronic (AoCD).
-Hbg 6.9.
-B12 = 456 (normal), Fe = 26 (low), Fe %Sat = 11% (low), TIBC = 236 (low), Ferritin = 639 (high), reticulocyte = 1.2% (inappropriately normal).
-Follow up hemoccult, folate, thiamine.
-Transfuse 1 unit PRBCs (this will effectively replace any true Fe deficiency, though ferritin suggests that his Fe levels are actually normal).
-Add MVI.
#SAH, due to hemorrhagic conversion, in the setting of septic emboli
#LBBB/IVCD, EKG pending
#History of opioid abuse, history of Suboxone, stable
Subjective/Interval History:
Plan for discharge once antibiotics is available at home.
DATA:
TTE, 02/03/2025:
CONCLUSIONS
Normal biventricular size and systolic function without regional wall motion
abnormality. LVEF 55 to 60%.
S/p mitral valve repair. Mild to moderate mitral regurgitation.
S/p mechanical aortic valve replacement. Peak/mean gradient 16/9 mmHg. Mild
paravalvular AI.
There appears to be a fistulous connection between the aortic root and the
proximal pulmonary artery, just after the pulmonic valve (view 29/30).
Thickening of the pulmonic valve leaflets. No obvious vegetation.
Mild to moderate pulmonic regurgitation.
Moderate to large pericardial effusion without evidence of hemodynamic
compromise.
Pleural effusion present.
Compared to prior echocardiogram on 01/17/2025, there is now pulmonic valve
thickening. Pericardial effusion has increased from small to moderate to
large. There is a fistulous connection visualized between the aortic root and
proximal pulmonary artery which was not seen previously.
Coronary CTA, 02/04/2025:
IMPRESSION:
1. LARGE MILDLY COMPLEX PERICARDIAL EFFUSION.
2. Recent surgical aortic valve replacement.
3. Mild calcific atherosclerotic plaque in the left coronary artery.
4. Small bilateral pleural effusions.
5. Large airspace consolidation in the lingula (either atelectasis or pneumonia).
6. Mild mediastinal and bilateral hilar lymphadenopathy.
7. Acute splenic infarct which appears unchanged.
RHC/Pericardiocentesis, 02/04/2025:
CONCLUSION:
1. Medium to large size, bloody pericardial effusion status post successful percutaneous drainage for 400 mL of bloody fluid with significant reduction in intrapericardial pressure but without significant change in filling pressures.
2. Moderately elevated filling pressures (PCWP = 19-20 mmHg at 69.4 kg), unchanged after pericardiocentesis.
3. Mild, postcapillary pulmonary hypertension (mean PA = 32 mmHg, PCWP = 20 mmHg, cardiac output = 5.97 L/min, PVR = 2.01 Foreman units), WHO group 2.
4. Normal cardiac index (3.20 L/min/m�).
5. No evidence of significant intracardiac [id number] shunt.
Physical Exam
Vital Signs/Labs
Vital Signs
Temp Pulse Resp BP Pulse Ox
98.7 F 82 20 161/91 94
02/09/25 07:37 02/09/25 04:29 02/09/25 07:37 02/09/25 04:29 02/09/25 07:37
02/08/25 02/09/25 02/10/25
06:59 06:59 06:59
Actual Weight 151 lb 7.321 oz 149 lb 11.102 oz
02/09/25 04:40
02/09/25 04:40
PT 21.2 Sec (11.4-14.6) H 02/09/25 04:40
INR 1.78 02/09/25 04:40
APTT Cancelled 02/06/25 11:00
Magnesium 1.6 mg/dl (1.6-2.3) 02/06/25 03:55
Physical Exam
Constitutional: No acute distress and Comfortable
EENT: Anicteric
Cardiovascular: Rhythm & rate is regular
Respiratory: Respiratory effort normal and Lungs clear to auscul.
GI: Soft
Neuro/Psych: Alert and Oriented
Data Reviewed
-
Date of Service: February 09, 2025
Medical Decision Making: Reviewed Test Results
EKG: Tracing Personally Visualized and interpreted (sr)
Echo: Report Reviewed by me
Labs: Labs Reviewed by me
[2025-02-09] MEDS: PROZAC 40 MG PO (09:06)
[2025-02-09] MEDS: EDECRIN 50 MG PO (09:06)
[2025-02-09] MEDS: ALDACTONE 25 MG PO (09:07)
[2025-02-09] MEDS: NEURONTIN 300 MG PO (09:07)
[2025-02-09] MEDS: VISBIOME 2 CAP PO (09:07)
[2025-02-09] MEDS: COREG 25 MG PO (09:07)
[2025-02-09] MEDS: PROTONIX 40 MG PO (09:07)
[2025-02-09] MEDS: FEOSOL 325 MG PO (09:08)
[2025-02-09] MEDS: NORVASC 10 MG PO (09:08)
[2025-02-09] MEDS: APRESOLINE 50 MG PO ×2 (09:08→14:34)
[2025-02-09] MEDS: MUCINEX 600 MG PO (09:08)
[2025-02-09] MEDS: THERAGRAN 1 TABLET PO (09:08)
[2025-02-09 11:01] VITALS: BP 131/88
[2025-02-09 11:24] VITALS: BP 131/88; PULSE 82; O2SAT 96
[2025-02-09 11:27] VITALS: BP 130/90
--- NOTE | 2025-02-09 11:45 | CM ---
Reviewed chart. Telephone call to [facility] to confirm discharge plan and date. Faxed updated script to [facility] will be here around 12:30 p.m. to do the teaching here before he goes home. Telephone call to
[facility] to confirm they will see Mr. Kwan tomorrow to continue the IV ABX teaching. Will need scripts for the rolling walker and bedside commode for him to take home with him. TT attending regarding scripts. Met with Mr. Kwan to
review discharge plans. He is agreeable with the plan. Medical work-up in progress. The discharge plan is to return [place] with his spouse, [facility],and [facility] when medically stable.
[2025-02-09] MEDS: INVANZ 60 MG IV (13:57)
--- NOTE | 2025-02-09 14:19 | W.PN.HOSP.TC ---
Addendum entered and electronically signed by Enrique Santillan MD 02/11/25 14:38:
Read, reviewed, and agree. See same day progress note for additional details. Time spent coordinating care, DC planning, review of DC plan of care with resident, transition of care, review of records in EMR, med rec, consults, notes, d/w
consultants, nursing, family, and CM 31 mins
Original Note:
Today's Communication/Plan
-
Discharge patient
Check INR tomorrow and inform PCP of the results
Check BMP in 1 week and inform PCP of the results
Follow up with Dr. Pretty (Care Manager)
Case management coordinated with patient regarding home antibiotics.
Rolling walker and commode use discussed c/o OT/PT
Assessment / Plan
Assessment / Plan
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
anemia of chronic disease, type 2 diabetes, depression, and anxiety who presented to the [facility] emergency department from [facility] due to abnormal findings on a routine echocardiogram. Patient developed bacterial endocarditis from a
dental infection a couple months ago, which necessitated emergent mechanical aortic valve replacement, septal myomectomy, and mitral valve chordae debridement on 12/27/2024, which was complicated by septic cerebral emboli and subsequent hemorrhagic
conversion (SAH). Patient was started on warfarin for anticoagulation s/p AVR, and he was discharged from [facility] on 01/14/2025. Patient was subsequently readmitted on 01/18/2025 for decompensated HFpEF. Patient was eventually discharged to [facility]
on 01/27/2025. Patient underwent [facility], which revealed a moderate to large pericardial effusion with hemodynamic stability, pulmonary valve thickening, and a fistulous connection between the aortic root and the
proximal pulmonary artery. Patient was admitted for further evaluation.
#Pericardial effusion
Echocardiogram (02/03): Per cardiology, moderate to large pericardial effusion without evidence of hemodynamic compromise.
Pericardiocentesis (02/04): 400 mL of bloody fluid extracted, drain left in place.
Infectious evaluation of pericardial fluid:
- Bacteria culture: NGTD
- Fungal culture and smear pending
- Acid-fast bacillus smear negative, culture pending
Echocardiogram (02/06): Normal pericardium without effusion. LVEF 55-60%.
Pericardial drain pulled, as no fluid was draining s/p pericardiocentesis
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
Echocardiogram (02/03): Per cardiology, fistulous connection between the aortic root and the proximal pulmonary artery, just after the pulmonic valve. Thickening of the pulmonic valve leaflets (new since echo 01/17/2025).
RHC (02/04): Per interventional cardiology, moderately elevated filling pressures (PCWP 20 mmHg). No significant change after pericardiocentesis. No significant xeag-sd-nvyot shunt.
Coronary angiography CT (02/04): Large pericardial effusion. Large dense airspace consolidation in the lingula adjacent to the large pericardial effusion. Small bilateral pleural effusions.
#Infective endocarditis s/p mechanical aortic valve replacement
Per ID, continue ertapenem through 02/14; RUE PICC line in place
Per cardiology, patient restarted on anticoagulation with warfarin
Per , we anticipate antibiotics delivered to home on Sunday and VN assistance for IV antibiotic administration starting on Sunday
#HFpEF
Echo (02/03, 02/06): LVEF 55 to 60%.
Patient denies shortness of breath; 1+ pitting edema noted in bilateral lower extremities
Continue GDMT as tolerated, with lisinopril on hold for elevated creatinine
Trend weights, I's and O's
#Hypertension
Chronic, continue to monitor
Continue amlodipine, carvedilol, hydralazine
Holding lisinopril for elevated creatinine
Per cardiology, up titrate hydralazine as needed
#Acute on chronic anemia
Hemoglobin 7.9 today s/p transfusion of 1 unit PRBCs (02/06)
Patient's baseline over the past month appears to be approximately hemoglobin of 7s-8s
Iron studies consistent with anemia of chronic disease (elevated ferritin, low TIBC, low iron)
Hemolytic workup: Reticulocyte count WNL; LDH WNL; haptoglobin decreased (mixed picture for hemolysis)
UA shows 4+ blood, >100 RBCs.
-This is similar to prior UAs in the past 6 weeks. Patient denies bloody urine last 3 days. Patient believes hematuria is related to history of kidney stones s/p stents.
No overt signs of active bleeding. Hemoccult negative.
Monitor H&H, clinical status
Transfuse for hemoglobin <7
#CKD IIIb
Cr 1.9, BUN 30 today, stable relative to yesterday
Baseline over the past month appears to be approximately 1.4-1.6
UA shows 4+ blood, >100 RBCs. This is similar to prior UAs in the past 6 weeks, which was previously followed by nephrology during recent hospital stay.
Holding lisinopril while monitoring kidney function
Avoid nephrotoxic medications
Etiology possible GN 2/2 infective endocarditis vs sequelae of kidney stones s/p stenting. Plan to repeat UA following completion of antibiotic regimen. Nephrology follow-up based on repeat UA.
Trend BMP
#Sacral decubitus ulcer
No sacral decubitus ulcer appreciated on exam today
Patient denies any pain or visualization of an ulcer himself
#Splenic infarct
#Subarachnoid hemorrhage
#Opioid use disorder
#Depression
#Anxiety
DVT PPx: SCDs
CODE STATUS: Full
Disposition: PT: Home health. OT: Outpatient therapy. Per CM, plan for discharge to home with home care for IV antibiotic administration. Home antibiotics not delivered until Sunday or later. VN not available until Sunday.
Patient discharged today.
Anticipated Discharge: Today
Subjective/Interval History
-
Date of Service: February 09, 2025
Patient verbalized that 'he was feeling great' and had no complaints.
Objective Data
-
Labs:
Laboratory Results
02/09/25
04:40
WBC 7.4
Hgb 8.4 L
Hct 24.8 L
Plt Count 220
PT 21.2 H
INR 1.78
Sodium 136
Potassium 4.4
Chloride 106
Carbon Dioxide 24
BUN 31 H
Creatinine 1.7 H
Glucose 90
Calcium 8.5
Vital Signs:
Vital Signs
Temp Pulse Resp BP Pulse Ox
98.2 F 76 18 154/94 97
02/09/25 11:27 02/09/25 11:27 02/09/25 11:27 02/09/25 07:37 02/09/25 11:27
I&O
02/08/25 02/09/25 02/10/25
06:59 06:59 06:59
Intake Total 240 / 240 540 / 540
Output Total 1325 / 1325
Balance 240 / 240 -785 / -785
Review of Systems
-
History Source: Patient
Constitutional: Reports Other (Denies fever, weakness)
EENT: Reports No Symptoms Reported
Respiratory: Reports No Symptoms
Cardiac: Reports No Symptoms
Abdomen/GI: Reports No Symptoms
Genitourinary: Reports No Symptoms
Skin: Reports No Symptoms
Neuro: Reports No Symptoms
Hematologic / Lymphatic: Reports Other (Denies bleeding)
Physical Exam
-
General: Well Developed, Comfortable and Conversant
HEENT: Normocephalic and Atraumatic
Respiratory: Clear to Auscultation and Non Labored Respirations
Cardiac: Regular Rhythm, S1/S2 and Murmur (systolic murmur heard loudest at LUSB, unchanged from prior days s/p AVR last month. )
GI: Soft, Nontender, Nondistended and Normal Bowel Sounds
Genito-urinary: No Costovertebral Tender
Musculoskeletal: No Cyanosis
Skin: Warm and Normal Turgor
Neuro: Awake, Alert, Oriented, No Motor Deficits and No Sensory Deficits
Psych: Calm
[2025-02-09 14:35] VITALS: BP 138/86
[2025-02-09] MEDS: ATIVAN 1 MG PO (16:18)
--- NOTE | 2025-02-09 16:47 | PTCARENOTE ---
Patient discharged to home. Discharge teaching completed. Patient and spouse verbalized understanding. Patient escorted to main lobby in a wheelchair
--- NOTE | 2025-02-09 18:16 | W.DCSUMMARY ---
Discharge Summary
Discharge Data
Date of Admission: 02/03/25
Date of Discharge: 02/09/25
-
Pending Results: No
Hospital Course
Discharging Physician : Mandie Ramirez ; Enrique Santillan MD
Disposition : Home with home care
Primary care physician : Luis Turenr DO
Principal Discharge diagnosis : Pericardial effusion; infectious endocarditis; HFpEF; anemia
Chronic Discharge diagnosis : CKD 3b; hypertension; edema; subarachnoid hemorrhage; opioid use disorder
Hospital Course :
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
anemia of chronic disease, type 2 diabetes, depression, and anxiety who presented to the [facility] emergency department from [facility] due to abnormal findings on a routine echocardiogram. Patient developed bacterial endocarditis from a
dental infection a couple months ago, which necessitated emergent mechanical aortic valve replacement, septal myomectomy, and mitral valve chordae debridement on 12/27/2024, which was complicated by septic cerebral emboli and subsequent hemorrhagic
conversion (SAH). Patient was started on warfarin for anticoagulation s/p AVR, and he was discharged from [facility] on 01/14/2025. Patient was subsequently readmitted on 01/18/2025 for decompensated HFpEF. Patient was eventually discharged to [facility] on
01/27/2025. Patient underwent a routine TTE at [facility] on 02/03/2025, which revealed a moderate to large pericardial effusion with hemodynamic stability, pulmonary valve thickening, and a fistulous connection between the aortic root and the
proximal pulmonary artery. Patient was admitted for further evaluation. The patient was continued on ertapenem for infectious endocarditis throughout the hospital course. In order to further assess the pericardial effusion, possible aortopulmonary
fistula, and volume status, patient underwent a right heart catheterization and pericardiocentesis. The patient's anticoagulation with warfarin was held for the procedure and restarted post procedurally. A medium to large size pericardial effusion
was identified and percutaneous drainage of 400 mL of bloody was performed with significant reduction in intrapericardial pressure. Filling pressures were unchanged after drainage. No evidence of significant intracardiac [id number] shunt was
identified. A pericardial drain was left in place and output was monitored post procedurally. There was no drain output with the patient restarted on anticoagulation, and the drain was pulled 2 days following the procedure. A repeat echo was
performed 2 days following the RHC/pericardiocentesis, which showed continued resolution of the pericardial effusion. The patient was also found to be anemic, with hemoglobin levels ranging between 6.9 and 8.1, requiring transfusion of 1 unit of
packed red blood cells. Patient's anemia is acute on chronic and suspected to be related to anemia of chronic disease based on iron studies and the patient's broader clinical picture. Patient's urinalysis did show 4+ red blood cells, though this
appears to be a more chronic finding for the patient. Patient himself believes that is related to his history of kidney stones. Patient was recommended to obtain a follow-up urinalysis following completion of the antibiotic course, as it is possible
his infective endocarditis induced glomerulonephritis. Follow-up with nephrology is recommended pending that urinalysis. Patient was hypertensive at times during his hospital stay, which prompted up titration of hydralazine. With a regimen to
include hydralazine, carvedilol, and spironolactone, the patient's blood pressure was eventually well-controlled. The patient's creatinine ranged between 1.9�2.0 during the hospital course, which represented an elevation above the patient's general
range of approximately 1.4-1.6 over the past month. The rising creatinine was not related to dehydration or otherwise decreased intravascular volume. The patient's chronic heart failure with preserved ejection fraction was stable during hospital
course. During the hospital stay, the patient was treated with ethacrynic acid, carvedilol, and spironolactone. Patient's home lisinopril was held given the aforementioned creatinine elevation. In the days following the RHC/pericardiocentesis, the
patient did not complain of any new symptoms, including chest pain and shortness of breath. Antibiotics delivery was facilitated. Patient's discharged plans were reviewed, including antibiotic delivery, rolling walking/ commode use. INR goal is
1.5-2.0 with instructions for INR laboratory tomorrow. BMP to follow 1 week later. Follow up consult with Dr. Pretty.
Plan is for the patient to be discharged home with home care with IV antibiotics to be completed with end date of 02/14/2025
Important imaging findings :
Echocardiogram (02/06/2025)�CONCLUSIONS:
1. Follow up study for pericardial effusion.
2. Normal biventricular size and systolic function without regional wall motion abnormality.
3. Estimated LVEF 55-60%.
4. Mechanical On-X 23 aortic valve replacement. Peak/mean gradients are 35/19mmHg.
5. Trace aortic regurgitation.
6. Normal pericardium without effusion.
7. Pleural effusion present.
8. Compared to 02/04/25: trivial pericardial effusion has resolved.
CT coronary angiography (02/04/2025)�IMPRESSION:
1. LARGE MILDLY COMPLEX PERICARDIAL EFFUSION.
2. Recent surgical aortic valve replacement.
3. Mild calcific atherosclerotic plaque in the left coronary artery.
4. Small bilateral pleural effusions.
5. Large airspace consolidation in the lingula (either atelectasis or pneumonia).
6. Mild mediastinal and bilateral hilar lymphadenopathy.
7. Acute splenic infarct which appears unchanged.
Echocardiogram (02/04/2025)�CONCLUSIONS:
1. Limited TTE performed during pericardiocentesis.
2. Pericardial effusion reduced from large to trivial s/p pericardiocentesis.
Procedure findings :
Procedure: Right heart catheterization/pericardiocentesis (02/04/2025)
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
Conclusion:
1. Medium to large size, bloody pericardial effusion status post successful percutaneous drainage for 400 mL of bloody fluid with significant reduction in intrapericardial pressure but without significant change in filling pressures.
2. Moderately elevated filling pressures (PCWP = 19-20 mmHg at 69.4 kg), unchanged after pericardiocentesis.
3. Mild, postcapillary pulmonary hypertension (mean PA = 32 mmHg, PCWP = 20 mmHg, cardiac output = 5.97 L/min, PVR = 2.01 Foreman units), WHO group 2.
4. Normal cardiac index (3.20 L/min/m�).
5. No evidence of significant intracardiac [id number] shunt.
Recommendations:
1. Expectant management after right heart catheterization via right antecubital approach.
2. Expectant management of pericardiocentesis after right apical approach.
3. Continue modest diuresis given elevated filling pressures as hemodynamics will tolerate.
4. Monitor drain output. When drain output is <1 mL/h x 12-24 hours, we can consider repeat echocardiogram and discontinuing the pericardial drain.
5. Pericardial fluid has been dispatched to the lab for routine analysis, cytology, culture and cell
Discharge Plan
-
Patient Disposition: Home (Routine Discharge)
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
s/p stents CKD IIIb, sacral decubitus ulcer, splenic infarct , h/o subarachnoid hemorrhage, opioid use disorder, depression, anxiety
Condition: Fair
Diet: 2 Gram Sodium
Activity: As tolerated
Driving Restrictions: As prior to admission
Bathing Restrictions: None
Blood Work: goal INR 1.5-2 for On-X valve
Others Tests: TTE in 1 month
Other Services: VN
Referrals:
[facility] [Outside]
[facility] [Outside]
Karl Mcgowan MD [Active, Cardiology] - in one to two weeks
Luis Turner DO [Family Provider, Family Practice]
Freda Pretty MD [Non-Admitting Privileges, Cardiology] - in two to three days
Additional Discharge Medication Instructions: Please complete INR tomorrow, BMP in 1 week, follow-up with outpatient skoog operator . If you develop any worrisome concerns please return to the emergency department.
Please take carvedilol 25 mg 1 tablet twice a day
Please discontinue carvedilol 12.5 mg tablet
Please discontinue aspirin 81 mg and discuss it with outpatient cardiology
Please continue IV ertapenem with end date of 02/14/2025
[facility] amlodipine 10 mg 1 tablet daily
Take at the clinic is a 25 mg tablet twice daily
Take ferrous sulfate 1 tablet by mouth daily
Take fluoxetine 1 capsule daily
Take gabapentin 300 mg by mouth twice a day
Take hydralazine 50 mg 1 tablet by mouth 3 times a day
Take pantoprazole 40 mg tablet by mouth daily
Take spironolactone 25 mg 1 tablet by mouth daily
Take warfarin 1 mg tablet by mouth daily
Please follow up with your pcp for additional scripts
Prescriptions:
New
carvedilol 25 mg Tablet
25 mg PO BID Qty: 60 0RF
ethacrynic acid 25 mg Tablet
50 mg PO BID Qty: 60 0RF
spironolactone 25 mg Tablet
25 mg PO DAILY Qty: 30 0RF
amlodipine 10 mg Tablet
10 mg PO DAILY Qty: 30 0RF
pantoprazole 40 mg Tablet,Delayed Release (Dr/Ec)
40 mg PO DAILY Qty: 30 0RF
ferrous sulfate [FeroSul] 325 mg (65 mg iron) Tablet
325 mg PO DAILY Qty: 30 0RF
hydralazine 50 mg Tablet
50 mg PO TID Qty: 90 0RF
warfarin [Jantoven] 1 mg Tablet
1 mg PO QPM Qty: 30 0RF
guaifenesin 600 mg Tablet Extended Release 12hr
600 mg PO DAILY Qty: 30 0RF
gabapentin 300 mg Capsule
300 mg PO BID Qty: 60 0RF
lorazepam 1 mg Tablet
1 mg PO Q8HPRN PRN (Reason: anxiety) Qty: 15 0RF
zolpidem 10 mg Tablet
10 mg PO HSPRN PRN (Reason: insomnia) Qty: 15 0RF
fluoxetine 20 mg Capsule
40 mg PO DAILY Qty: 30 0RF
Continued
Ertapenem [Invanz] 1000 MG
0.9% Sodium Chloride [Nss] 50 ML
120 mls/hr IV Q24H
Reason for use: strep mutans endocarditis (end date 02/14/25)
Ordered By: Erica Rico CRNP
Last Taken: Unknown
acetaminophen [Tylenol] 325 mg Tablet
650 mg PO Q6HPRN MDD 3000 mg PRN (Reason: mild pain)
magnesium hydroxide [Milk of Magnesia] 400 mg/5 mL Suspension
30 ml PO [id number] PRN (Reason: if no BM in 3 days)
bisacodyl 10 mg Suppository
10 mg WA BIDPRN PRN (Reason: constipation)
sennosides [senna] 8.6 mg Tablet
17.2 mg PO NOON PRN (Reason: constipation)
docusate sodium 100 mg Capsule
100 mg PO BID
loperamide 2 mg Tablet
2 mg PO Q6HPRN PRN (Reason: diarrhea)
clotrimazole 1 % Cream
1 applic TOPICAL BID
Visbiome 112.5 billion cell Capsule
2 cap PO DAILY
Held
lisinopril 2.5 mg tablet
2.5 mg PO .SEE BELOW
Hold Instructions: Resume on 02/16/25. Please have the BMP in a week and discussed with outpatient skoog operator before restarting.
Patient Comments:
[facility]03/20[facility]
Discontinued
fluoxetine 40 mg Capsule
40 mg PO DAILY
amlodipine 10 mg Tablet
10 mg PO DAILY Qty: 0 0RF
Rx Instructions:
hold for SBP<110 and HR<60
pantoprazole 40 mg Tablet,Delayed Release (Dr/Ec)
40 mg PO DAILY Qty: 0 0RF
spironolactone 25 mg Tablet
25 mg PO DAILY Qty: 0 0RF
Rx Instructions:
Hold for sbp<110
gabapentin 300 mg Capsule
300 mg PO BID
ethacrynic acid 25 mg tablet
50 mg PO BID
guaifenesin 600 mg tablet extended release 12hr
600 mg PO DAILY
lorazepam 0.5 mg Tablet
0.5 mg PO Q8HPRN PRN (Reason: anxiety) Qty: 10 0RF
zolpidem [Ambien] 10 mg tablet
10 mg PO HS PRN (Reason: insomnia) Qty: 0 0RF
aspirin 81 mg Tablet,Chewable
81 mg PO DAILY
hydralazine 10 mg Tablet
10 mg PO TID
carvedilol 12.5 mg Tablet
12.5 mg PO BID
ferrous sulfate 325 mg (65 mg iron) Tablet
325 mg PO DAILY
warfarin 1 mg tablet
1.5 mg PO QPM
Discharge Orders:
Discharge Patient (As Directed); Ordered 02/09/25
Ordered By: Mandie Ramirez
Care Plan Goals
Care Plan Goals:
Problem: Readiness for enhanced knowledge related to diagnosis and treatment plan
Goal: Understand your diagnosis and treatment plan needs, including medications if applicable.
Instructions: Know your diagnosis, underlying causes and treatment plan options, including medications if applicable. Consult with your health care team to learn about your diagnosis and treatment plan, including medications if applicable.
Discharge Date and Time
Discharge Date/Time: 02/09/25 17:42
Print Language: SOU[place]FR[place]
== END 2025-02-09 17:42 | disposition home health service (06) | DRG 286 ==
LOC: IVU 19:09
PROVIDERS: Clinical Nurse Specialist Family Health; Internal Medicine; Internal Medicine Cardiovascular Disease; ADMITTING PHYSICIAN Internal Medicine; ATTENDING PHYSICIAN Hospitalist; CONSULT PHYSICIAN Internal Medicine Infectious Disease; CONSULT PHYSICIAN Student in an Organized Health Care Education/Training Program; CONSULT PHYSICIAN Thoracic Surgery (Cardiothoracic Vascular Surgery); EMERGENCY PHYSICIAN Emergency Medicine; FAMILY PHYSICIAN Family Medicine
PROC: 0W9D30Z Drainage of Pericardial Cavity with Drainage Device, Percutaneous Approach (ICD-10-PCS; 2025-02-04)
PROC: 4A023N6 Measurement of Cardiac Sampling and Pressure, Right Heart, Percutaneous Approach (ICD-10-PCS; 2025-02-04)
PROC: 30233N1 Transfusion of Nonautologous Red Blood Cells into Peripheral Vein, Percutaneous Approach (ICD-10-PCS; 2025-02-06)
DX: I30.9 Acute pericarditis, unspecified (principal); I60.9 Nontraumatic subarachnoid hemorrhage, unspecified; I13.0 Hypertensive heart and chronic kidney disease with heart failure and stage 1 through stage 4 chronic kidney disease, or unspecified chronic kidney disease; I50.32 Chronic diastolic (congestive) heart failure; N18.32 Chronic kidney disease, stage 3b; I44.7 Left bundle-branch block, unspecified; E11.22 Type 2 diabetes mellitus with diabetic chronic kidney disease; F32.9 Major depressive disorder, single episode, unspecified; R53.82 Chronic fatigue, unspecified; F41.9 Anxiety disorder, unspecified; I27.20 Pulmonary hypertension, unspecified; D63.1 Anemia in chronic kidney disease; L89.151 Pressure ulcer of sacral region, stage 1; I77.0 Arteriovenous fistula, acquired; G47.00 Insomnia, unspecified; K04.7 Periapical abscess without sinus; F11.21 Opioid dependence, in remission; R59.0 Localized enlarged lymph nodes; D73.5 Infarction of spleen; Z80.8 Family history of malignant neoplasm of other organs or systems; Z95.2 Presence of prosthetic heart valve; Z86.79 Personal history of other diseases of the circulatory system; Z86.73 Personal history of transient ischemic attack (TIA), and cerebral infarction without residual deficits; Z79.01 Long term (current) use of anticoagulants; Z88.2 Allergy status to sulfonamides; Z79.82 Long term (current) use of aspirin; Z87.442 Personal history of urinary calculi
CPT/HCPCS: 33016; 75572; 80048; 80053; 81003; 81015; 82607; 82728; 82746; 82945; 83010; 83540; 83550; 83615; 83735; 84157; 84425; 85014; 85025; 85027; 85045; 85610; 85730; 86850; 86900; 86901; 86920; 86922; 87015; 87070; 87102; 87116; 87205; 87206; 88112; 88305; 89051; 93005; 93308; 93321; 93325; 93451; 97110; 97116; 97163; 97167; 97530; 97535; 99284; J1335; P9016; Q9967